=== PATIENT | female | born 1970 | race Caucasian/White ===

== ENCOUNTER 2016-08-30 21:11 | Emergency (ER) | payer OTHER ==
[~2016-08-30] VITALS: Ht 157.5 cm; Wt 53.0 kg
[~2016-08-30 21:11] MED LIST: ACET-1256 PO; AMB10 PO; ASCA500 PO; ATV/1 PO; AZAT50TA17 PO; BCPILLS PO; BIOT50006 PO; BUSP15TA70 PO; CALCTAB65 PO; CETI10TA84 PO; CHOL2000 PO; CLC100 PO; CYCL25CA2 PO; FEXO1TAB49 PO; FLNIN NAE; GLUCTAB7 PO; IMT100 PO; LABE100T16 PO; LINA1CAP2 PO; LRS10 PO; MELA5CAP PO; METH500T3 PO; MIRT15TA PO; MRLP17 PO; MULT-506 PO; OMEG-27 PO; ONDA4TAB46 PO; OXCA300T2 PO; OXCA300T4 PO; OXYC-164 PO; OXYM1TAB25 PO; PANT40TA PO; PRD/25 PO; RIZA10TA18 PO; SIMV5TAB2 PO; VERA240T20 PO; VITACAP37 PO; ZNTT/150 PO
[2016-08-30 21:19] VITALS: TEMP 36.6; Ht 157.5 cm; Wt 53.0 kg
[2016-08-30] MEDS ORDERED: PROPARACAINE HCL 0.5% OP SOLN 15 ML BTL OP STA (21:44)
[2016-08-30 22:40] VITALS: BP 156/62; PULSE 78; O2SAT 98
[2016-08-30] MEDS ORDERED: VALA1TAB2 PO (23:22)
--- NOTE | 2016-08-30 23:23 | EMERGENCY ROOM VISIT NOTE ---
History First contact with patient: 21:35 Chief Complaint: EYE ASSESSMENT Stated Complaint: SHINGLES OVER LT EYE, PAIN/RED BUMP, IRRITATED History of Present Illness The patient is a 45 year old female who presents to the Emergency Room with complaints of possible shingles. The patient states that 4 days ago, she noticed irritation of her left eye. She has a history of issues of allergies and states that she uses allergy drops, so she tried those. Over the next few days, she developed pain in the left side of her face and a "crawling" sensation. She states that it hurts to touch. She reports there is a red, painful spot on the left side of her scalp. She rates her discomfort a 7/10 and has been taking her own pain medication at home for the symptoms. She reports that he has been bloodshot and she has had worsening irritation in the eye. She has a history of chickenpox. She has no history of shingles. She does take immunosuppressants due to a renal transplant. She denies any fevers/ chills, facial drooping, numbness or weakness. Review of Systems A complete 10 point review of systems was reviewed with the patient with pertinent positives and negatives as per history of present illness. All else were negative. Social History Smoking Status: Current Every Day Smoker Current/Historical Medications Scheduled Ascorbic Acid (Vitamin C *), 500 MG PO BID Azathioprine (Imuran), 100 MG PO QAM Baclofen (Baclofen *), 20 MG PO TID Biotin (Biotin), 10,000 MCG PO QAM Control Pills ( Control Pills), 1 TAB PO QAM Buspirone Hcl (Buspar), 5 MG PO BID Calcium Carbonate-Vitamin D (Calcium 500 + D), 1 TAB PO BID Cetirizine (Zyrtec), 10 MG PO QAM Cholecalciferol (Vitamin D3), 1 CAP PO QAM Cyclosporine (Cyclosporine), 200 MG PO BID Docusate Sodium (Colace *), 100 MG PO BID Fexofenadine Hcl (Earnestine Allergy), 1 TAB PO QAM Fluticasone Propionate (Flonase Nasal Fleischmanns *), 2 SPRAYS JOEL HS Datvkmqcuww-Mqjbxiidhwv-Uxx C- (Glucosamine Chondroitin), 1 TAB PO BID Labetalol Hcl (Normodyne), 100 MG PO BID Linaclotide (Linzess), 1 TAB PO HS Melatonin (Melatonin), 15 MG PO HS Methylcellulose (Laxative) (Citrucel), 2-4 TABS PO HS Mirtazapine (Remeron), 30 MG PO HS Multivitamin (Multivitamin), 1 TAB PO QAM [place]-3 Fatty Acids (Fish Oil), 1 CAP PO HS Oxcarbazepine (Trileptal), 300 MG PO HS Oxcarbazepine (Trileptal), 1.5 TABS PO QAM Oxymorphone Hcl (Opana Er (Crush Resistant), 1 TAB PO Q8H Pantoprazole (Protonix), 40 MG PO BID Prednisone (Prednisone), 2.5 MG PO QAM Ranitidine (Zantac), 150 MG PO BID Simvastatin (Zocor), 5 MG PO QPM Valacyclovir Hcl (Valtrex), 1,000 MG PO TID Verapamil Sust Rel (Calan Sr Ext Rel), 240 MG PO BID Vitamin E (E-400), 1 CAP PO QAM Scheduled PRN Acetaminophen (Tylenol), 1,000 MG PO PRN PRN for Pain Lorazepam (Ativan), 1 MG PO TID PRN for Anxiety Ondansetron Hcl (Zofran), 4 MG PO tidprn PRN for Nausea Oxycodone Hcl (Oxycodone Hcl), 1 TAB PO TID PRN for Pain Polyethylene Glycol (Miralax *), 17 GM PO DAILY PRN for Constipation Rizatriptan Benzoate (Maxalt), 10 MG PO PRN PRN for Headache Sumatriptan Succinate (Imitrex), 100 MG PO UD PRN for Headache Zolpidem Tartrate (Ambien *), 10 MG PO HS PRN for Sleep Allergies Coded Allergies: Morphine (Verified Allergy, Intermediate, HIVES, HAS HAD CODEINE W/O PROBLEM, 02/10/16) HIVES, HAS HAD CODEINE W/O PROBLEM HAS ALSO TOLERATED TRAMADOL Hydralazine (Verified Allergy, Unknown, HIVES, 02/10/16) Uncoded Allergies: NITRATES (Adverse Reaction, Unknown, MIRAINES, 05/10/15) Physical Exam Vital Signs Date Time Temp Pulse Resp B/P (MAP) Pulse Ox O2 Delivery O2 Flow Rate FiO2 08/30/16 22:40 78 18 156/62 98 Room Air 08/30/16 21:19 36.6 91 18 151/84 99 Room Air Right Eye Acuity: 20/30 with glasses Left Eye Acuity: 20/30 with glasses Physical Exam VITALS: Vitals are noted on the nurse's note and reviewed by myself. Vital signs stable. GENERAL: This is a 45-year-old female, in no acute distress, nondiaphoretic, well-developed well-nourished. SKIN: There is a vesicular lesion to the left scalp in the hairline. It is painful to touch. There is mild surrounding erythema. There are no further rashes. EARS: External auditory canals clear, tympanic membranes pearly cruz without erythema or effusion bilaterally. EYES: Pupils equal round and reactive to light and accommodation. Mild left conjunctival injection. Slit lamp exam shows a few scattered spots of fluorescein uptake over the lower aspect of the iris. There are no overt dendritic lesions. MOUTH: Mucous membranes moist. Tonsils are not enlarged. Pharynx without erythema or exudate. NECK: Supple without nuchal rigidity. No lymphadenopathy. HEART: Regular rate and rhythm without murmurs gallops or rubs. LUNGS: Clear to auscultation bilaterally without wheezes, rales or rhonchi. NEURO: Patient was alert and oriented to person place and time. Medical Decision & Procedures Medications Administered Medications (Trade) Dose Ordered Sig/Jose G Route Start Time Stop Time Status Last Admin Dose Admin Valacyclovir HCl (Valtrex Tab) 1,000 mg NOW ONCE PO 08/30/16 23:00 08/30/16 23:01 DC 08/30/16 23:16 1,000 MG ED Course The patient was evaluated as above. Alcaine drops were placed in the eye and slit-lamp exam was performed as above. I discussed the case with Dr. Bauer of ophthalmology. Patient was medicated with 1 g Valtrex. Discharge instructions were reviewed with the patient. The patient verbalized understanding of my assessment and treatment plan and was discharged home in good condition. Medical Decision Differential diagnosis includes herpes zoster, contact dermatitis, zoster ophthalmicus, allergic reaction, among others. The patient was evaluated as above. Physical exam is consistent with early herpes zoster. Slit lamp exam revealed some scattered fluorescein uptake but there are no obvious dendritic lesions. I feel this is more likely due to the patient rubbing at her eyes. I consulted ophthalmology, Dr. Bauer, who did not recommend a steroid eyedrop at this time. The patient will call their office tomorrow to schedule follow-up. She will be placed on child tracks. She has her own pain medication at home. She will return here for any worsening symptoms. She verbalized understanding and was discharged home in good condition. The patient's case was reviewed with Dr. Servin, ED attending physician, who agreed with my assessment and treatment plan. Medication reconciliation: I attest that I have personally reviewed the patient 's current medication list. Blood pressure screening: Patient was found to have an elevated blood pressure and was referred to their primary care provider for recheck and further treatment. Impression Primary Impression: Herpes zoster Departure Information Dispostion Home / Self-Care Condition GOOD Prescriptions Valacyclovir Hcl (VALTREX) 1 Gm Tab 1000 MG PO TID for 7 Days, #21 TAB Prov: Camila Frausto .SEE 08/30/16 Referrals Stuart Ravi M.D. (PCP) Joey Bauer DHeide Patient Instructions My [facility] Additional Instructions Valtrex 3 times daily for 7 days. Continue pain control at home as needed. Follow-up with ophthalmology tomorrow. You should also follow-up with your primary care provider. Return to the emergency department with worsening symptoms, fevers or any other new/concerning symptoms. Problem Qualifiers Primary Impression: Herpes zoster Herpes zoster complications: without complications Qualified Codes: B02.9 - Zoster without complications
[2016-10-20] MEDS ORDERED: DIPH1TAB87 PO (18:44)
[2016-10-22] MEDS ORDERED: AMX500 PO (16:57)
[2017-02-16] MEDS ORDERED: SLWMEC PO (13:45)
[2017-02-16] MEDS ORDERED: [UNRECOGNIZED DRUG - OTHER] (13:45)
== END 2016-08-30 23:58 | disposition home or self-care (01) ==
LOC: C.EDB 21:12
DX: B02.9 Zoster without complications (principal); Z94.0 Kidney transplant status; F17.210 Nicotine dependence, cigarettes, uncomplicated; Z79.3 Long term (current) use of hormonal contraceptives; Z79.899 Other long term (current) drug therapy

== ENCOUNTER 2016-09-06 16:44 | Inpatient (IN) | payer OTHER ==
[~2016-09-06] VITALS: Ht 157.5 cm; Wt 50.2 kg
[~2016-09-06 16:44] MED LIST changes: +VALA1TAB2 PO
[2016-09-06] MEDS ORDERED: SODIUM CHLORIDE 0.9% 1000ML 1,000 ML IV STA ×3 (17:07→19:28)
[2016-09-06] MEDS ORDERED: PROMETHAZINE HCL INJ 25 MG in SODIUM CHLORIDE 0.9% 50ML 50 ML IV STA (17:15)
[2016-09-06 18:15] LABS: BASO % 0.3 %; BASO ABS # 0.01 K/uL (0-0.2); EOS % 0.3 %; HEMATOCRIT 22.8 % (37-47); IG% 0.6 %; LYMPH % 29.6 %; LYMPH ABS # 0.97 K/uL (1.2-3.4); MEAN CELL VOLUME 89.1 fL (80-100); MEAN CORPUSCULAR HEMOGLOBIN 32.8 pg (25-34); MEAN CORPUSCULAR HGB CONC 36.8 g/dl (32-36); MEAN PLATELET VOLUME 8.8 fL (7.4-10.4); NEUT % 62.2 %; PLATELET COUNT 173 K/uL (130-400); RED BLOOD COUNT 2.56 M/uL (4.2-5.4); WHITE BLOOD COUNT 3.28 K/uL (4.8-10.8)
[2016-09-06 18:24] LABS: INR 1.1 (0.9-1.1); PARTIAL THROMBOPLASTIN RATIO 0.8; PROTHROMBIN TIME (PATIENT) 11.6 SECONDS (9.0-12.0)
[2016-09-06 18:41] LABS: ALKALINE PHOSPHATASE 80 U/L (45-117); AST/SGOT 37 U/L (15-37); BLOOD UREA NITROGEN 44 mg/dl (7-18); BUN/CREATININE RATIO 23.4 (10-20); CARBON DIOXIDE 24 mmol/L (21-32); CHLORIDE 104 mmol/L (98-107); GLUCOSE 127 mg/dl (70-99); MAGNESIUM 2.5 mg/dl (1.8-2.4); POTASSIUM 3.9 mmol/L (3.5-5.1); PREG INTERNAL NEGATIVE QC NEG CLEAR BACKGROUND; PREG INTERNAL POSITIVE QC POS CONTROL LINE; SODIUM 136 mmol/L (136-145)
[2016-09-06 18:53] LABS: ALT/SGPT 32 U/L (12-78); THYROID STIMULATING HORMONE 0.677 uIu/ml (0.300-4.500)
[2016-09-06 18:54] LABS: COMPLETE YES; OVALOCYTES 1+
[2016-09-06 19:25] LABS: URINE APPEARANCE CLEAR (CLEAR); URINE BILIRUBIN NEG (NEG); URINE COLOR YELLOW; URINE EPITHELIAL CELL AUTO 0-5 /lpf (0-5); URINE NITRITE NEG (NEG); URINE PH 5.5 (4.5-7.5); URINE SPECIFIC GRAVITY 1.014 (1.000-1.030); UROBILINOGEN NEG (NEG)
[2016-09-06 19:28] LABS: MANUAL MICROSCOPIC REQUIRED? NO; REVIEW REQ? NO
[2016-09-06] MEDS ORDERED: FLUT0.15 NAE (19:30)
[2016-09-06] MEDS ORDERED: OFLO0.3S4 OPB (19:30)
[2016-09-06] MEDS ORDERED: MIRT45TA PO (19:30)
[2016-09-06] MEDS ORDERED: DOCU-94 PO (19:30)
[2016-09-06] MEDS ORDERED: OXCA600T2 PO (19:30)
[2016-09-06] MEDS ORDERED: ASCO500T16 PO (19:30)
[2016-09-06] MEDS ORDERED: CIME-56 PO (19:30)
[2016-09-06] MEDS ORDERED: POLY335019 PO (19:30)
[2016-09-06] MEDS ORDERED: ZOLP10TA PO (19:30)
[2016-09-06] MEDS ORDERED: OXY/15 PO (19:30)
[2016-09-06] MEDS ORDERED: LISI-725 PO (19:30)
[2016-09-06] MEDS ORDERED: DICL1GEL34 TOP (19:30)
[2016-09-06] MEDS ORDERED: OMEG5CAP PO (19:30)
[2016-09-06] MEDS ORDERED: LRS20 PO (19:30)
[2016-09-06] MEDS ORDERED: ONDANSETRON INJ 2 MG/ML 2 ML VIAL IV ONE (21:12)
[2016-09-06 21:38] LABS: BENZODIAZEPINE, URINE NEG (NEG); COCAINE,URINE NEG (NEG); PHENCYCLIDINE, URINE NEG (NEG)
--- NOTE | 2016-09-06 21:43 | DIAGNOSTIC IMAGING REPORT ---
HEAD CT NONCONTRAST CT DOSE: 537.48 mGy.cm HISTORY: Headache. TECHNIQUE: Multiaxial CT images of the head were performed without the use of intravenous contrast. Automated exposure control was utilized for this study. Comparison: Head CT 02/14/2014. Findings: The paranasal sinuses and mastoid air cells are clear. The calvarium and skull base are intact. The ventricles and sulci are within normal limits. There is no mass, hematoma, midline shift, or acute infarct. Impression: No acute intracranial abnormality. Electronically signed by: Hi Rios M.D. 09/06/2016 9:42 PM Dictated Date/Time: 09/06/2016 9:40 PM
--- NOTE | 2016-09-06 21:55 | DIAGNOSTIC IMAGING REPORT ---
ABDOMEN AND PELVIS CT WITHOUT CONTRAST CT DOSE: 259.53 mGy.cm HISTORY: Right-sided abdominal pain. TECHNIQUE: Multiaxial CT images of the abdomen and pelvis were performed without contrast. COMPARISON STUDY: MRCP 12/30/2015. FINDINGS: A 6 mm nodule within the right lower lobe. The heart is mildly enlarged. No fractures within the visualized osseous structures. Stable 3.6 cm cyst within the right kidney. Normal gallbladder. The spleen is enlarged measuring 16 cm in length. This has increased in size. Multiple left renal hypodense lesions remain unchanged. These likely represent cysts. The dominant lesion measures 4.3 cm. Suboptimal evaluation of the pancreas due to the noncontrast study. There are multiple calcifications seen throughout the pancreas consistent with chronic pancreatitis. No peripancreatic inflammatory change to suggest acute pancreatitis at this time. Multiple small cystic lesions within the pancreas are better appreciated on the prior MRCP. Small hiatus hernia. No definite retroperitoneal lymphadenopathy. Right lower quadrant renal transplant. There is fullness within the transplant collecting system without raphael hydronephrosis. There are few scattered hypodense lesions within the transplant kidney. These are not significantly changed and likely represent cysts. The bladder, uterus, bilateral adnexa are unremarkable. No significant pelvic free fluid. Suboptimal evaluation for bowel pathology due to the lack of intravenous and oral contrast. However, there is no definite bowel wall thickening or obstruction. Large amount well-formed stool seen throughout the colon. Normal appendix. IMPRESSION: 1. No bowel wall thickening or obstruction. 2. Severe constipation. 3. Mild fullness within the right lower quadrant transplant kidney without raphael hydronephrosis. This is not significantly changed. 4. Splenomegaly which has increased in size. 5. An indeterminate 6 mm nodule in the right lower lobe. Please refer to the chart below for recommended follow-up. 6. Pancreatic calcifications consistent with chronic pancreatitis. No CT evidence for acute pancreatitis at this time. Multiple small cystic lesion within the pancreas are better appreciated on the prior MRCP. Please refer to below summary of Fleischner criteria recommendations for follow-up of incidental CT nodules (Fabian Calixto, Guidelines for management of small pulmonary nodules detected on CT scans: A statement from the Fleischner Society, Radiology 237: [phone].) SOLID NODULES Solitary nodule size: <6 mm * Low risk patients: no follow-up needed * high risk patients: optional CT at 12 months Solitary nodule size: 6-8 mm * Low risk patients: follow-up at 6-12 months, then consider further follow-up at 18-24 months * high risk patients: initial follow-up CT at 6-12 months and then at 18-24 months if no change Solitary nodule size: >8 mm * either low or high risk patients - consider follow-up CT at 3 months, and/or CT-PET, and/or biopsy Multiple nodules size: <6 mm * Low risk patients: no routine follow-up * high risk patients: optional CT at 12 months Multiple nodules size: 6-8 mm * Low risk patients: follow-up at 3-6 months, then consider further follow-up at 18-24 months * high risk patients: follow-up at 3-6 months, then at 18-24 months if no change Multiple nodules size: >8 mm * Low risk patients: follow-up at 3-6 months, then consider further follow-up at 18-24 months * high risk patients: follow-up at 3-6 months, then at 18-24 months if no change Note: newly detected indeterminate nodule in persons 35 years of age or older. * Low risk patients: minimal or absent history of smoking and/or other known risk factors * high risk patients: history of smoking or of other known risk factors (e.g. first degree relative with lung cancer, or exposure to asbestos, radon, uranium) * if a nodule up to 8 mm is partly solid or is ground glass further follow-up is required after 24 months to exclude possible slow growing adenocarcinoma (CHANDAN) SUBSOLID NODULES Solitary pure ground-glass nodule * nodule size <6 mm - no CT follow-up required * nodule size >=6 mm - follow-up CT at 6-12 months, then every 2 years until 5 years Solitary part-solid nodule * nodule size <6 mm - no CT follow-up required * nodule size >=6 mm - follow-up CT at 3-6 months. If unchanged, and solid component remains <6 mm, then annual follow-up for 5 years Multiple subsolid nodules * nodule size <6 mm - follow-up CT at 3-6 months, consider further follow-up at 2 and 4 years if stable * nodule size >=6 mm - follow-up CT at 3-6 months, subsequent management based on the most suspicious nodule(s) Electronically signed by: Hi Rios M.D. 09/06/2016 9:54 PM Dictated Date/Time: 09/06/2016 9:42 PM
[2016-09-06] MEDS ORDERED: HYDROmorphone INJ 0.5 MG/0.5 ML SYR IV PRN (22:15)
[2016-09-06] MEDS ORDERED: MIRTAZAPINE TAB 15 MG TAB PO PRN (22:15)
[2016-09-06] MEDS: SODIUM CHLORIDE 0.9% 1000ML 1,000 ML IV SCH (22:23)
[2016-09-06 22:29] VITALS: BP 143/74; PULSE 75; TEMP 37.2; O2SAT 98
[2016-09-06 22:43] VITALS: BP 143/74; PULSE 75; TEMP 37.2; Ht 157.5 cm; Wt 50.2 kg
[2016-09-06] MEDS ORDERED: ACETAMINOPHEN 325 MG TAB PO PRN (22:45)
[2016-09-06] MEDS ORDERED: OXYCODONE/ACETAMINOPHEN 5-325 TAB PO PRN (22:45)
[2016-09-06 23:37] LABS: HEMATOCRIT 19.5 % (37-47)
[2016-09-06 23:43] LABS: FERRITIN 1142.7 ng/ml (8.0-388.0)
[2016-09-06] MEDS ORDERED: DOCUSATE SODIUM/SENNA 50/8.6MG TAB PO ONE (23:45)
[2016-09-06] MEDS ORDERED: LACTULOSE SYRUP 30 GM/45 ML UDP PO ONE (23:45)
[2016-09-07] VITALS (12 sets, daily range): BP systolic 110–140; BP diastolic 63–78; PULSE 65–74; TEMP 36.9–37.2; O2SAT 93–99
[2016-09-07] MEDS: LUBIPROSTONE 8 MCG CAP PO SCH ×3 (00:36→20:33)
[2016-09-07] MEDS: HYDROmorphone INJ 0.5 MG/0.5 ML SYR IV PRN ×2 (00:43→22:28)
--- NOTE | 2016-09-07 01:27 | History and Physical ---
History & Physical Date & Time of Service: Sep 07, 2016 at 01:27 Chief Complaint: nausea, emesis Primary Care Physician: Stuart Ravi M.D. History of Present Illness Source: patient, clinic records, hospital records Last week patient found to have shingles of the left eye face. Prescribed oral Acyclovir course. Patient noted nausea emesis after intake of medication. Left-sided headache achy different from migraine. Minimal upper abdominal discomfort. No bowel movement for a week No chest pain no shortness of breath. Seen at urgent care center a few days ago. Given IV fluids and prescribed antiemetics Follow-up with local meteorological aide yesterday. Patient told to stop Acyclovir. Topical antiviral prescribed for left eye. Patient consulted the emergency room for intractable symptoms and abnormal kidney function Outpatient creatinine was 2.1. 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) Multi-Drug Resistant Organisms History of MDRO: No Allergies Coded Allergies: Morphine (Verified Allergy, Intermediate, HIVES, HAS HAD CODEINE W/O PROBLEM, 09/06/16) HIVES, HAS HAD CODEINE W/O PROBLEM HAS ALSO TOLERATED TRAMADOL Hydralazine (Verified Allergy, Unknown, HIVES, 09/06/16) Uncoded Allergies: NITRATES (Adverse Reaction, Unknown, MIRAINES, 05/10/15) Home Medications Scheduled Ascorbic Acid (Ascorbic Acid), 500 MG PO BID Azathioprine (Imuran), 100 MG PO QAM Baclofen (Baclofen), 1 TAB PO TID Biotin (Biotin), 10,000 MCG PO QAM Control Pills ( Control Pills), 1 TAB PO QAM Buspirone Hcl (Buspar), 5 MG PO BID Calcium Carbonate-Vitamin D (Calcium 500 + D), 1 TAB PO BID Cetirizine (Zyrtec), 10 MG PO QAM Cholecalciferol (Vitamin D3), 1 CAP PO QAM Cimetidine (Tagamet), 1 TAB PO BID Cyclosporine (Cyclosporine), 200 MG PO BID Diclofenac Sodium (Topical) (Diclofenac Sodium), 1 DOSE TOP DAILY Docusate Sodium (Colace), 1 CAP PO BID Fexofenadine Hcl (Earnestine Allergy), 1 TAB PO QAM Fluticasone Propionate (Nasal) (Flonase Allergy Relief), 1 SPRAY JOEL HS Wqhjaaoitle-Jfunkuqutwa-Bmt C- (Glucosamine Chondroitin), 1 TAB PO BID Linaclotide (Linzess), 1 TAB PO HS Lisinopril (Zestril), 20 MG PO BID Melatonin (Melatonin), 15 MG PO HS Methylcellulose (Laxative) (Citrucel), 2-4 TABS PO HS Mirtazapine (Remeron), 1 TAB PO HS Multivitamin (Multivitamin), 1 TAB PO QAM Ofloxacin (Oph) (Ocuflox Oph Soln), 1 DROP OPB DAILY [place]-3 Fatty Acids (Fish Oil 1200 mg), 2 CAP PO HS Oxcarbazepine (Trileptal), 0.5 TAB PO BID Oxycodone Hcl (Oxycodone Hcl), 1 TAB PO QID Oxymorphone Hcl (Opana Er (Crush Resistant), 1 TAB PO TID Pantoprazole (Protonix), 40 MG PO BID Polyethylene Glycol 3350 (Miralax), 17 GM PO DAILY Prednisone (Prednisone), 2.5 MG PO QAM Simvastatin (Zocor), 5 MG PO QPM Verapamil Sust Rel (Calan Sr Ext Rel), 240 MG PO BID Vitamin E (E-400), 1 CAP PO QAM Zolpidem Tartrate (Ambien), 10 MG PO HS Scheduled PRN Acetaminophen (Tylenol), 1,000 MG PO PRN PRN for Pain Lorazepam (Ativan), 1 MG PO TID PRN for Anxiety Ondansetron Hcl (Zofran), 4 MG PO tidprn PRN for Nausea Rizatriptan Benzoate (Maxalt), 10 MG PO PRN PRN for Headache Sumatriptan Succinate (Imitrex), 100 MG PO UD PRN for Headache Review of Systems as per HPI, all other ROS negative Physical Exam Vital Signs Date Time Temp Pulse Resp B/P (MAP) Pulse Ox O2 Delivery O2 Flow Rate FiO2 09/07/16 00:50 37.1 68 20 133/70 98 09/06/16 22:43 37.2 75 16 143/74 Room Air 09/06/16 22:29 37.2 75 16 143/74 (97) 98 Room Air 09/06/16 21:53 68 18 126/76 98 Room Air 09/06/16 21:12 72 16 144/79 97 Room Air 09/06/16 19:09 72 16 143/77 97 Room Air 09/06/16 18:03 73 14 125/66 97 Room Air 09/06/16 17:48 96 Room Air 09/06/16 16:50 36.8 79 16 137/78 98 Room Air General Appearance: + pertinent finding (lethargic) Head: normocephalic Eyes: + pertinent finding (rash left left upper face) Neck: supple Respiratory/Chest: + pertinent finding (occasional wheeze) Cardiovascular: regular rate, rhythm Abdomen/GI: + distended Extremities/Musculoskelatal: non-tender Neurologic/Psych: + pertinent finding (lethargic) Skin: + pallor Diagnostics Laboratory Results Results Past 24 Hours Test 09/06/16 18:00 09/06/16 19:05 09/06/16 23:10 Range/Units White Blood Count 3.28 4.8-10.8 K/uL Red Blood Count 2.56 4.2-5.4 M/uL Hemoglobin 8.4 7.2 12.0-16.0 g/dL Hematocrit 22.8 19.5 37-47 % Mean Corpuscular Volume 89.1 80-100 fL Mean Corpuscular Hemoglobin 32.8 25-34 pg Mean Corpuscular Hemoglobin Concent 36.8 32-36 g/dl Platelet Count 173 130-400 K/uL Mean Platelet Volume 8.8 7.4-10.4 fL Neutrophils (%) (Auto) 62.2 % Lymphocytes (%) (Auto) 29.6 % Monocytes (%) (Auto) 7.0 % Eosinophils (%) (Auto) 0.3 % Basophils (%) (Auto) 0.3 % Neutrophils # (Auto) 2.04 1.4-6.5 K/uL Lymphocytes # (Auto) 0.97 1.2-3.4 K/uL Monocytes # (Auto) 0.23 0.11-0.59 K/uL Eosinophils # (Auto) 0.01 0-0.5 K/uL Basophils # (Auto) 0.01 0-0.2 K/uL RDW Standard Deviation 48.7 36.4-46.3 fL RDW Coefficient of Variation 15.3 11.5-14.5 % Immature Granulocyte % (Auto) 0.6 % Immature Granulocyte # (Auto) 0.02 0.00-0.02 K/uL Ovalocytes 1+ Prothrombin Time 11.6 9.0-12.0 SECONDS Prothromb Time International Ratio 1.1 0.9-1.1 Activated Partial Thromboplast Time 19.6 21.0-31.0 SECONDS Partial Thromboplastin Ratio 0.8 Sodium Level 136 136-145 mmol/L Potassium Level 3.9 3.5-5.1 mmol/L Chloride Level 104 98-107 mmol/L Carbon Dioxide Level 24 21-32 mmol/L Anion Gap 8.0 3-11 mmol/L Blood Urea Nitrogen 44 7-18 mg/dl Creatinine 1.90 0.60-1.20 mg/dl Est Creatinine Clear Calc Drug Dose 29.9 ml/min Estimated GFR () 36.5 Estimated GFR (Non- 31.5 BUN/Creatinine Ratio 23.4 10-20 Random Glucose 127 70-99 mg/dl Calcium Level 9.0 8.5-10.1 mg/dl Magnesium Level 2.5 1.8-2.4 mg/dl Total Bilirubin 1.0 0.2-1 mg/dl Direct Bilirubin 0.4 0-0.2 mg/dl Aspartate Amino Transf (AST/SGOT) 37 15-37 U/L Alanine Aminotransferase (ALT/SGPT) 32 12-78 U/L Alkaline Phosphatase 80 45-117 U/L Troponin I < 0.015 0-0.045 ng/ml Total Protein 7.5 6.4-8.2 gm/dl Albumin 4.1 3.4-5.0 gm/dl Lipase 116 73-393 U/L Thyroid Stimulating Hormone (TSH) 0.677 0.300-4.500 uIu/ml Human Chorionic Gonadotropin, Qual NEG NEG Urine Color YELLOW Urine Appearance CLEAR CLEAR Urine pH 5.5 4.5-7.5 Urine Specific [place] 1.014 1.000-1.030 Urine Protein TRACE NEG Urine Glucose (UA) NEG NEG Urine Ketones NEG NEG Urine Occult Blood NEG NEG Urine Nitrite NEG NEG Urine Bilirubin NEG NEG Urine Urobilinogen NEG NEG Urine Leukocyte Esterase NEG NEG Urine WBC (Auto) 0 0-5 /hpf Urine RBC (Auto) 0-4 0-4 /hpf Urine Hyaline Casts (Auto) 0 0-5 /lpf Urine Epithelial Cells (Auto) 0-5 0-5 /lpf Urine Bacteria (Auto) NEG NEG Urine Opiates Screen POS NEG Urine Methadone, Qualitative NEG NEG Urine Barbiturates NEG NEG Urine Phencyclidine (PCP) Level NEG NEG Ur Amphetamine/Methamphetamine NEG NEG MDMA (Ecstasy) Screen POS NEG Urine Benzodiazepines Screen NEG NEG Urine Cocaine Metabolite NEG NEG Urine Marijuana (THC) NEG NEG Absolute Reticulocyte Count 0.05 0.02-0.10 10^6/uL Percent Reticulocyte Count 2.2 0.5-2.0 % Iron Level 78 35-150 mcg/dl Total Iron Binding Capacity 165 250-450 mcg/dl Transferrin 132 200-360 mg/dl Transferrin % Saturation 42 15-50 % Ferritin 1142.7 8.0-388.0 ng/ml Vitamin B12 Level 1234 211-911 pg/mL Folate 22.36 >5.38 ng/mL Microbiology Results 09/06/16 Urine Culture, Received Pending Diagnostic Radiology CT head no acute pathology CT abdomen and pelvis chronic pancreatic calcifications splenomegaly, severe constipation, pulmonary nodule right Impression Assessment and Plan AP ARF likely prerenal 2 to nausea/emesis symptoms Multifactorial : ? 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 Baron ) Bowel regimen, continue Linzess Judicious narcotic use Hold [id number]-[id number] narcotics, neuro-psychotropics for for sedation confusion ( May need dose adjustment for renal function) (px currently agreeable to holding her Opana inpx- refusing available Oxycontin substitute) Anemia workup, transfuse pRBC if hemoglobin less than 7 and/or for symptomatic anemia Continue topical Rx prescribed by meteorological aide for shingles Nicotine patch outpx ffup surveillance CT chest study for SPN DVT prophylaxis SCDs RE anemia Full code Advanced Directives Existing Living Will: No Existing Power of Construction Stonemason: No VTE Prophylaxis VTE Risk Assessment Done? Y/N: Yes Risk Level: High
[2016-09-07] MEDS ORDERED: NON-FORMULARY MEDICATION SCH (01:45)
[2016-09-07] MEDS: PROMETHAZINE HCL INJ 12.5 MG in SODIUM CHLORIDE 0.9% 50ML 50 ML IV PRN ×3 (03:00→20:10)
[2016-09-07 08:00] LABS: HEMATOCRIT 21.6 % (37-47); MEAN CELL VOLUME 89.6 fL (80-100); MEAN CORPUSCULAR HGB CONC 35.6 g/dl (32-36); MEAN PLATELET VOLUME 8.5 fL (7.4-10.4); PLATELET COUNT 151 K/uL (130-400); RED BLOOD COUNT 2.41 M/uL (4.2-5.4); WHITE BLOOD COUNT 2.97 K/uL (4.8-10.8)
[2016-09-07 08:12] LABS: BASO % 0.3 %; BASO ABS # 0.01 K/uL (0-0.2); COMPLETE YES; EOS % 0.7 %; IG% 0.3 %; LYMPH % 37.7 %; LYMPH ABS # 1.12 K/uL (1.2-3.4); MONO % 9.4 %; NEUT % 51.6 %
[2016-09-07 08:13] LABS: BUN/CREATININE RATIO 22.1 (10-20); CALCIUM 8.2 mg/dl (8.5-10.1); CREATININE 1.2 mg/dl (0.60-1.20)
[2016-09-07] MEDS ORDERED: LACTULOSE SYRUP 20 GM/30 ML UDC PO ONE (08:15)
[2016-09-07] MEDS: SODIUM CHLORIDE 0.9% 1000ML 1,000 ML IV SCH ×2 (08:24→17:08)
[2016-09-07] MEDS: ACETAMINOPHEN IV 650 MG in EMPTY BAG 0 ML IV PRN ×2 (08:26→16:22)
[2016-09-07] MEDS ORDERED: BusPIRone 15 MG TAB PO SCH (09:00)
[2016-09-07] MEDS: OXCARBAZEPINE 150 MG TAB PO SCH ×2 (10:11→20:30)
[2016-09-07] MEDS: FEXOFENADINE HCL 180 MG TAB PO SCH (10:11)
[2016-09-07] MEDS: CYCLOSPORINE 100 MG PO SCH ×2 (10:12→20:36)
[2016-09-07] MEDS: AZATHIOPRINE 50 MG TAB PO SCH (10:12)
[2016-09-07] MEDS: VERAPAMIL HCL 240 MG TABCR PO SCH ×2 (10:12→20:34)
[2016-09-07] MEDS: BACLOFEN 10 MG TAB PO SCH ×3 (10:13→20:33)
[2016-09-07] MEDS: MULTIVITAMIN TAB PO SCH (10:14)
[2016-09-07] MEDS: DOCUSATE SODIUM/SENNA 50/8.6MG TAB PO SCH ×2 (10:15→20:30)
[2016-09-07] MEDS: NICOTINE 7 MG/24 HR TDSY TD SCH (10:16)
[2016-09-07] MEDS: FAMOTIDINE 20 MG TAB PO SCH ×2 (10:16→20:31)
[2016-09-07] MEDS: CETIRIZINE HCL 10 MG TAB PO SCH (10:17)
[2016-09-07] MEDS: PANTOprazole SOD 40 MG TAB PO SCH ×2 (10:18→20:31)
[2016-09-07] MEDS: POLYETHYLENE (MIRALAX) 17 GM PACK PO SCH (10:26)
--- NOTE | 2016-09-07 12:26 | Nephrology Consultation ---
Nephrology Consultation Date & Providers Date of Consultation: Sep 07, 2016. Primary Care Provider: Stuart Ravi M.D. Referring Provider: Reason for Consultation Evaluation management for acute kidney injury with history of renal transplant. 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 Nephrologic consult was requested to manage acute kidney injury with history of renal transplant. 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 Since she started on Valtrex she was having significant GI symptom including nausea, vomiting, abdominal discomforted and she was not able to keep anything down. She was getting volume depleted and was feeling dizzy and lightheaded. She was having visual impairment with herpes infection. [place]field to her recruitment specialist care 2 days ago when she was kicked and given IV fluid and she fell better. Her creatinine was up currently 2.0. Yesterday she saw differential specialist and Valtrex was discontinued and started on topical eye drops. Since she stopped Valtrex her non vomiting resolved but she is still nauseous but improving. She has been getting IV hydration and overall feels better. p.o. intake also has been improving. On admission her creatinine was 1.9 which improved to 1.2 this morning which seems to be her baseline. All other electrolyte acceptable. Blood pressure well control. She had end-stage renal disease continue to MPGN requiring renal transplant. Her initial transplant was in 1984 with donor renal transplant which eventually failed and patient had a second transplant in 1990 from heart mother. Since then she has been enjoying excellent graft function. Her baseline creatinine somewhere around 1.1-1.3. She is on cyclosporine 200 milligram twice a day, Imuran 100 milligram daily and prednisone 2.5 milligram daily. She had an episode of autoimmune hemolytic anemia in 2013 when she was admitted with hemoglobin of 4.2. Eventually she was started on rituximab and receive at 3 or 4 doses then stopped. Episode of hemolytic anemia required again requiring weekly rituximab which she stopped in March 2015. Her hemoglobin has been staying around 12 however recently her hemoglobin has been again dropping yesterday her hemoglobin was 7.2, she received 1 unit of PRBC and hemoglobin improved to 7.8. B12 and folate level was normal. She had colonoscopy in 2016 which was normal, EGD showed gastritis. Currently she is on Protonix. She had gastric bypass surgery in 2014 and since then she almost lost 80-90 pounds. Allergies Coded Allergies: Morphine (Verified Allergy, Intermediate, HIVES, HAS HAD CODEINE W/O PROBLEM, 09/06/16) HIVES, HAS HAD CODEINE W/O PROBLEM HAS ALSO TOLERATED TRAMADOL Hydralazine (Verified Allergy, Unknown, HIVES, 09/06/16) Uncoded Allergies: NITRATES (Adverse Reaction, Unknown, MIRAINES, 05/10/15) Inpatient Medications Current Inpatient Medications Medications (Trade) Dose Ordered Sig/Jose G Route Start Time Stop Time Status Last Admin Dose Admin Sodium Chloride 1,000 ml @ 100 mls/hr Q10H IV 09/06/16 21:15 10/06/16 21:14 09/07/16 08:24 100 MLS/HR Ondansetron HCl (Zofran Inj) 4 mg Q6H PRN IV 09/06/16 21:15 10/06/16 21:14 Azathioprine (Imuran Tab) 100 mg QAM PO 09/07/16 09:00 10/07/16 08:59 Baclofen (Lioresal Tab) 2.5 mg TID PO 09/07/16 08:00 10/07/16 07:59 Buspirone HCl (BusPAR TAB) 5 mg BID PO 09/07/16 09:00 10/07/16 08:59 Cetirizine HCl (zyrTEC TAB) 10 mg QAM PO 09/07/16 09:00 10/07/16 08:59 Famotidine (Pepcid Tab) 20 mg BID PO 09/07/16 08:00 10/07/16 07:59 Cyclosporine (Sandimmune Cap) 200 mg BID PO 09/07/16 09:00 10/07/16 08:59 Fexofenadine HCl (Earnestine Tab) 180 mg QAM PO 09/07/16 09:00 10/07/16 08:59 Fluticasone Propionate (Flonase Nasal [place]) 1 sprays HS JOEL 09/07/16 22:00 10/07/16 21:59 Lorazepam (Ativan Tab) 1 mg TID PRN PO 09/06/16 22:15 10/06/16 22:14 Multivitamins (Multivitamin Tab) 1 tab QAM PO 09/07/16 09:00 10/07/16 08:59 Verapamil HCl (Calan-Sr Tab) 240 mg BID PO 09/07/16 09:00 10/07/16 08:59 Miscellaneous Information (Order Awaiting Action) 1 ea QS N/A 09/07/16 00:00 10/07/16 00:00 Polyethylene (Miralax Powder Packet) 17 gm QAM PO 09/07/16 08:00 10/07/16 07:59 Mirtazapine (Remeron Tab) 30 mg HS PRN PO 09/06/16 22:15 10/06/16 22:14 Oxcarbazepine (Trileptal Tab) 300 mg BID PO 09/07/16 09:00 10/07/16 08:59 Acetaminophen 650 mg/Empty Bag 65 ml @ 260 mls/hr Q6H PRN IV 09/06/16 22:15 10/06/16 22:14 09/07/16 08:26 260 MLS/HR Senna/Docusate Sodium (Senokot S Tab) 2 tab BID PO 09/07/16 09:00 10/07/16 08:59 Acetaminophen (Tylenol Tab) 650 mg Q4H PRN PO 09/06/16 22:45 10/06/16 22:44 Hydromorphone HCl (Dilaudid Inj) 0.5 mg Q12H PRN IV 09/06/16 23:00 09/20/16 22:14 09/07/16 00:43 0.5 MG Promethazine HCl 12.5 mg/Sodium Chloride 50.5 ml @ 204 mls/hr Q6H PRN IV 09/07/16 00:00 10/07/16 00:00 09/07/16 03:00 204 MLS/HR Lubiprostone (Amitiza) 24 mcg BID PO 09/07/16 00:30 10/07/16 00:29 09/07/16 00:36 24 MCG Nicotine (Nicoderm Cq 7 Mg Patch) 1 patch QAM TD 09/07/16 08:00 10/07/16 07:59 Miscellaneous (Remove Nicoderm Patch) 1 ea HS N/A 09/07/16 07:59 10/07/16 07:58 Prednisone (PredniSONE TAB) 2.5 mg DAILY PO 09/07/16 08:00 10/07/16 07:59 Pantoprazole Sodium (Protonix Tab) 40 mg BID PO 09/07/16 08:00 10/07/16 07:59 Simvastatin (Zocor Tab) 5 mg QPM PO 09/07/16 21:00 10/07/16 20:59 Miscellaneous Information (Order Awaiting Action) 1 ea QS N/A 09/07/16 08:00 10/07/16 07:59 Oxycodone/ Acetaminophen (Percocet 5-325mg Tab) pain not relieved by tyle... Q6H PRN PO 09/07/16 08:00 09/20/16 22:44 Family History Diabetes mellitus Heart disease Hypertension Kidney disease Kidney stones Lung disease Social History Smoking Status: Current Every Day Smoker Review of Systems A complete review of systems was performed. Pertinent positives are noted above. All other systems are negative. Physical Exam Date Time Temp Pulse Resp B/P (MAP) Pulse Ox O2 Delivery O2 Flow Rate FiO2 09/07/16 07:59 36.9 69 18 140/73 (95) 93 Room Air 09/07/16 02:35 37.1 68 20 110/63 98 09/07/16 01:45 36.9 68 20 120/70 (87) 97 Room Air 09/07/16 01:35 36.9 68 20 120/70 97 09/07/16 01:05 36.9 66 20 136/78 99 09/07/16 00:50 37.1 68 20 133/70 98 09/07/16 00:00 99 Room Air 09/06/16 22:43 37.2 75 16 143/74 Room Air 09/06/16 22:29 37.2 75 16 143/74 (97) 98 Room Air 09/06/16 21:53 68 18 126/76 98 Room Air 09/06/16 21:12 72 16 144/79 97 Room Air 09/06/16 19:09 72 16 143/77 97 Room Air 09/06/16 18:03 73 14 125/66 97 Room Air 09/06/16 17:48 96 Room Air 09/06/16 16:50 36.8 79 16 137/78 98 Room Air GENERAL: Young female, AAA x 3, pleasant, healthy-appearing, not in any distress. HEENT: Atraumatic, normocephalic. NECK: Supple, no JVD, no carotid bruit appreciated. ENT: No sinus tenderness MOUTH and THROAT: Moist oral mucosa, no oral ulcer or pharyngeal erythema RESPIRATORY: Normal breathing efforts, no accessory muscle use, clear to auscultation bilaterally, no wheezes or rales. CARDIOVASCULAR: S1, S2 normal, rate rhythm regular. ABDOMEN: Soft, nontender, positive bowel sound. MUSCULOSKELETAL: No CVA tenderness. No joint swelling, erythema or tenderness. Normal range of motion. SKIN: No skin rash EXTREMITY: No lower extremity edema NEURO: No gross focal neurological deficit, speech fluent. PSYCHIATRY: Normal mood and judgment Laboratory Results Last 24 Hours Test 09/06/16 18:00 09/06/16 19:05 09/06/16 23:10 09/07/16 06:55 White Blood Count 3.28 K/uL 2.97 K/uL Red Blood Count 2.56 M/uL 2.41 M/uL Hemoglobin 8.4 g/dL 7.2 g/dL 7.7 g/dL Hematocrit 22.8 % 19.5 % 21.6 % Mean Corpuscular Volume 89.1 fL 89.6 fL Mean Corpuscular Hemoglobin 32.8 pg 32.0 pg Mean Corpuscular Hemoglobin Concent 36.8 g/dl 35.6 g/dl Platelet Count 173 K/uL 151 K/uL Mean Platelet Volume 8.8 fL 8.5 fL Neutrophils (%) (Auto) 62.2 % 51.6 % Lymphocytes (%) (Auto) 29.6 % 37.7 % Monocytes (%) (Auto) 7.0 % 9.4 % Eosinophils (%) (Auto) 0.3 % 0.7 % Basophils (%) (Auto) 0.3 % 0.3 % Neutrophils # (Auto) 2.04 K/uL 1.53 K/uL Lymphocytes # (Auto) 0.97 K/uL 1.12 K/uL Monocytes # (Auto) 0.23 K/uL 0.28 K/uL Eosinophils # (Auto) 0.01 K/uL 0.02 K/uL Basophils # (Auto) 0.01 K/uL 0.01 K/uL RDW Standard Deviation 48.7 fL 47.6 fL RDW Coefficient of Variation 15.3 % 14.6 % Immature Granulocyte % (Auto) 0.6 % 0.3 % Immature Granulocyte # (Auto) 0.02 K/uL 0.01 K/uL Ovalocytes 1+ Prothrombin Time 11.6 SECONDS Prothromb Time International Ratio 1.1 Activated Partial Thromboplast Time 19.6 SECONDS Partial Thromboplastin Ratio 0.8 Sodium Level 136 mmol/L 140 mmol/L Potassium Level 3.9 mmol/L 4.0 mmol/L Chloride Level 104 mmol/L 109 mmol/L Carbon Dioxide Level 24 mmol/L 23 mmol/L Anion Gap 8.0 mmol/L 8.0 mmol/L Blood Urea Nitrogen 44 mg/dl 27 mg/dl Creatinine 1.90 mg/dl 1.20 mg/dl Est Creatinine Clear Calc Drug Dose 29.9 ml/min 47.3 ml/min Estimated GFR () 36.5 63.7 Estimated GFR (Non- 31.5 54.9 BUN/Creatinine Ratio 23.4 22.1 Random Glucose 127 mg/dl 78 mg/dl Calcium Level 9.0 mg/dl 8.2 mg/dl Magnesium Level 2.5 mg/dl Total Bilirubin 1.0 mg/dl Direct Bilirubin 0.4 mg/dl Aspartate Amino Transf (AST/SGOT) 37 U/L Alanine Aminotransferase (ALT/SGPT) 32 U/L Alkaline Phosphatase 80 U/L Troponin I < 0.015 ng/ml Total Protein 7.5 gm/dl Albumin 4.1 gm/dl Lipase 116 U/L Thyroid Stimulating Hormone (TSH) 0.677 uIu/ml Human Chorionic Gonadotropin, Qual NEG Urine Color YELLOW Urine Appearance CLEAR Urine pH 5.5 Urine Specific [place] 1.014 Urine Protein TRACE Urine Glucose (UA) NEG Urine Ketones NEG Urine Occult Blood NEG Urine Nitrite NEG Urine Bilirubin NEG Urine Urobilinogen NEG Urine Leukocyte Esterase NEG Urine WBC (Auto) 0 /hpf Urine RBC (Auto) 0-4 /hpf Urine Hyaline Casts (Auto) 0 /lpf Urine Epithelial Cells (Auto) 0-5 /lpf Urine Bacteria (Auto) NEG Urine Opiates Screen POS Urine Methadone, Qualitative NEG Urine Barbiturates NEG Urine Phencyclidine (PCP) Level NEG Ur Amphetamine/Methamphetamine NEG MDMA (Ecstasy) Screen POS Urine Benzodiazepines Screen NEG Urine Cocaine Metabolite NEG Urine Marijuana (THC) NEG Absolute Reticulocyte Count 0.05 10^6/uL 0.04 10^6/uL Percent Reticulocyte Count 2.2 % 1.8 % Iron Level 78 mcg/dl Total Iron Binding Capacity 165 mcg/dl Transferrin 132 mg/dl Transferrin % Saturation 42 % Ferritin 1142.7 ng/ml Vitamin B12 Level 1234 pg/mL Folate 22.36 ng/mL Red Blood Cell Morphology Unremarkable Lactate Dehydrogenase 275 U/L Impression (1) ARF (acute renal failure) (2) Anemia (3) Herpes zoster (4) GERD (gastroesophageal reflux disease) Marci Is a 45-year-old female status 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 She developed acute kidney injury in the setting of them nausea, vomiting, volume depletion after started on Valtrex for left eye herpes simplex infection. Admitted yesterday and started on IV hydration, clinically significantly improved. Still has nausea but vomiting resolved. Creatinine on admission was 1.9 which improved to 1.2 this morning which seems to be her baseline. She has been tolerating her immunosuppressant medication through her acute illness over last few days. 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 On admission hemoglobin was 7.2, received 1 unit of blood transfusion and hemoglobin improved to 7.9. EGD and colonoscopy in 2016 was otherwise unremarkable except gastritis, currently on Protonix. She denies any episode of GI bleeding recently. Currently acute kidney injury seems to have resolved creatinine 1.2, at baseline , other electrolyte acceptable, blood pressure acceptable. Recommendations --Patient still seems slightly volume depleted, agree with continuing with IV fluid until p.o. intake is adequate --renal function now at baseline, will continue to monitor renal function with daily renal panel while inpatient --Continue on cyclosporin 200 twice a day, Imuran 100 daily and prednisone 2.5 daily --Haptoglobin is pending --suggest Hematology consult for further evaluation for anemia and possible recurrence of AHA Thank you for allowing me to participate in your patient's care. It was a pleasure to see Marci This chart was completed utilizing [employer] Speech and voice recognition software. Grammatical errors, random word insertions, pronoun errors and incomplete sentences are occasional consequences of this system. Any questions or concerns about the content, text or information contained within the body of this dictation should be addressed directly to the physician for clarification.
[2016-09-07] MEDS: DICLOFENAC SOD 1% GEL 100 GM TUBE EXT SCH ×2 (14:32→20:40)
[2016-09-07] MEDS: ONDANSETRON INJ 2 MG/ML 2 ML VIAL IV PRN (14:33)
[2016-09-07] MEDS: OXYCODONE/ACETAMINOPHEN 5-325 TAB PO PRN (14:43)
--- NOTE | 2016-09-07 15:17 | Progress Note ---
Internal Med Progress Note Date of Service: Sep 07, 2016. Provider Documentation: SUBJECTIVE: The patient was seen and examined Symptoms started following the use of Valtrex prescribed by the Fund Controller Still feels very dizzy with any movement out of bed Feels a little better overall OBJECTIVE: Vital Signs-as noted below Exam: General-no distress atrest Eyes-normal ENT-normal Neck-supple Lungs-Clear to ausucltate bilaterally Heart-Regular,no murmur Abdomen-Benign.Enlarged spleen Extremities-No edema Neuro-AAOx3 NO focal neuro deficit Lab data as noted below. ASSESSMENT & PLAN: ARF likely prerenal 2 to nausea/emesis symptoms Multifactorial : Acyclovir intolerance, history shingles status post Rx, Narcotic induced constipation History MPGN status post renal transplant on chronic immunosuppression H/O Gastroparesis as per px Hold ACEI until renal function normalizes Received IVF and advised increased oral intake Nephrology evaluation-appreciate input Chronic pain on narcotics (plan for outpatient wean as per outpx PCP notes) Judicious narcotic use Hold [id number] narcotics, neuro-psychotropics for for sedation confusion ( May need dose adjustment for renal function) (px currently agreeable to holding her Opana inpx- refusing available Oxycontin substitute) Anemia workup, transfuse pRBC if hemoglobin less than 7 and/or for symptomatic anemia Anemia rule out occult bleed, progression of anemia over the last few months hx hemolytic anemia as per records Received 1 unit PRBC and will give another unit Herpes Zoster Ophthalmicus Was on Valtrex-on hold due to current symptoms Continue topical Rx prescribed by jewel bearing facer for shingles hx DVT sp tx ongoing tobacco abuse SPN on CT Tobacco abuse Nicotine patch outpx ffup surveillance CT chest study for SPN DVT prophylaxis SCDs RE anemia Full code Vital Signs: Date Time Temp Pulse Resp B/P (MAP) Pulse Ox O2 Delivery O2 Flow Rate FiO2 09/07/16 14:15 37.1 69 16 133/75 09/07/16 13:45 36.9 74 16 125/71 09/07/16 13:30 36.9 69 16 124/68 09/07/16 13:15 36.9 73 16 122/69 09/07/16 08:00 Room Air 09/07/16 07:59 36.9 69 18 140/73 (95) 93 Room Air 09/07/16 02:35 37.1 68 20 110/63 98 09/07/16 01:45 36.9 68 20 120/70 (87) 97 Room Air 09/07/16 01:35 36.9 68 20 120/70 97 09/07/16 01:05 36.9 66 20 136/78 99 09/07/16 00:50 37.1 68 20 133/70 98 09/07/16 00:00 99 Room Air 09/06/16 22:43 37.2 75 16 143/74 Room Air 09/06/16 22:29 37.2 75 16 143/74 (97) 98 Room Air 09/06/16 21:53 68 18 126/76 98 Room Air 09/06/16 21:12 72 16 144/79 97 Room Air 09/06/16 19:09 72 16 143/77 97 Room Air 09/06/16 18:03 73 14 125/66 97 Room Air 09/06/16 17:48 96 Room Air 09/06/16 16:50 36.8 79 16 137/78 98 Room Air Lab Results: Results Past 24 Hours Test 09/06/16 18:00 09/06/16 19:05 09/06/16 23:10 09/07/16 06:55 Range/Units White Blood Count 3.28 2.97 4.8-10.8 K/uL Red Blood Count 2.56 2.41 4.2-5.4 M/uL Hemoglobin 8.4 7.2 7.7 12.0-16.0 g/dL Hematocrit 22.8 19.5 21.6 37-47 % Mean Corpuscular Volume 89.1 89.6 80-100 fL Mean Corpuscular Hemoglobin 32.8 32.0 25-34 pg Mean Corpuscular Hemoglobin Concent 36.8 35.6 32-36 g/dl Platelet Count 173 151 130-400 K/uL Mean Platelet Volume 8.8 8.5 7.4-10.4 fL Neutrophils (%) (Auto) 62.2 51.6 % Lymphocytes (%) (Auto) 29.6 37.7 % Monocytes (%) (Auto) 7.0 9.4 % Eosinophils (%) (Auto) 0.3 0.7 % Basophils (%) (Auto) 0.3 0.3 % Neutrophils # (Auto) 2.04 1.53 1.4-6.5 K/uL Lymphocytes # (Auto) 0.97 1.12 1.2-3.4 K/uL Monocytes # (Auto) 0.23 0.28 0.11-0.59 K/uL Eosinophils # (Auto) 0.01 0.02 0-0.5 K/uL Basophils # (Auto) 0.01 0.01 0-0.2 K/uL RDW Standard Deviation 48.7 47.6 36.4-46.3 fL RDW Coefficient of Variation 15.3 14.6 11.5-14.5 % Immature Granulocyte % (Auto) 0.6 0.3 % Immature Granulocyte # (Auto) 0.02 0.01 0.00-0.02 K/uL Ovalocytes 1+ Prothrombin Time 11.6 9.0-12.0 SECONDS Prothromb Time International Ratio 1.1 0.9-1.1 Activated Partial Thromboplast Time 19.6 21.0-31.0 SECONDS Partial Thromboplastin Ratio 0.8 Sodium Level 136 140 136-145 mmol/L Potassium Level 3.9 4.0 3.5-5.1 mmol/L Chloride Level 104 109 98-107 mmol/L Carbon Dioxide Level 24 23 21-32 mmol/L Anion Gap 8.0 8.0 3-11 mmol/L Blood Urea Nitrogen 44 27 7-18 mg/dl Creatinine 1.90 1.20 0.60-1.20 mg/dl Est Creatinine Clear Calc Drug Dose 29.9 47.3 ml/min Estimated GFR () 36.5 63.7 Estimated GFR (Non- 31.5 54.9 BUN/Creatinine Ratio 23.4 22.1 10-20 Random Glucose 127 78 70-99 mg/dl Calcium Level 9.0 8.2 8.5-10.1 mg/dl Magnesium Level 2.5 1.8-2.4 mg/dl Total Bilirubin 1.0 0.2-1 mg/dl Direct Bilirubin 0.4 0-0.2 mg/dl Aspartate Amino Transf (AST/SGOT) 37 15-37 U/L Alanine Aminotransferase (ALT/SGPT) 32 12-78 U/L Alkaline Phosphatase 80 45-117 U/L Troponin I < 0.015 0-0.045 ng/ml Total Protein 7.5 6.4-8.2 gm/dl Albumin 4.1 3.4-5.0 gm/dl Lipase 116 73-393 U/L Thyroid Stimulating Hormone (TSH) 0.677 0.300-4.500 uIu/ml Human Chorionic Gonadotropin, Qual NEG NEG Urine Color YELLOW Urine Appearance CLEAR CLEAR Urine pH 5.5 4.5-7.5 Urine Specific [place] 1.014 1.000-1.030 Urine Protein TRACE NEG Urine Glucose (UA) NEG NEG Urine Ketones NEG NEG Urine Occult Blood NEG NEG Urine Nitrite NEG NEG Urine Bilirubin NEG NEG Urine Urobilinogen NEG NEG Urine Leukocyte Esterase NEG NEG Urine WBC (Auto) 0 0-5 /hpf Urine RBC (Auto) 0-4 0-4 /hpf Urine Hyaline Casts (Auto) 0 0-5 /lpf Urine Epithelial Cells (Auto) 0-5 0-5 /lpf Urine Bacteria (Auto) NEG NEG Urine Opiates Screen POS NEG Urine Methadone, Qualitative NEG NEG Urine Barbiturates NEG NEG Urine Phencyclidine (PCP) Level NEG NEG Ur Amphetamine/Methamphetamine NEG NEG MDMA (Ecstasy) Screen POS NEG Urine Benzodiazepines Screen NEG NEG Urine Cocaine Metabolite NEG NEG Urine Marijuana (THC) NEG NEG Absolute Reticulocyte Count 0.05 0.04 0.02-0.10 10^6/uL Percent Reticulocyte Count 2.2 1.8 0.5-2.0 % Iron Level 78 35-150 mcg/dl Total Iron Binding Capacity 165 250-450 mcg/dl Transferrin 132 200-360 mg/dl Transferrin % Saturation 42 15-50 % Ferritin 1142.7 8.0-388.0 ng/ml Vitamin B12 Level 1234 211-911 pg/mL Folate 22.36 >5.38 ng/mL Red Blood Cell Morphology Unremarkable Lactate Dehydrogenase 275 84-246 U/L Microbiology Results 09/06/16 Urine Culture - Preliminary, Resulted NO GROWTH - LESS THAN 1,000 COLONIES/...
--- NOTE | 2016-09-07 18:11 | EMERGENCY ROOM VISIT NOTE ---
History Report prepared by Wai: Mercedes Govea Under the Supervision of: Dr. Michele Wu M.D. First contact with patient: 17:05 Chief Complaint: DEHYDRATION Stated Complaint: NAUSEA, VOMITING, CAN'T WALK STRAIGHT History of Present Illness The patient is a 45 year old female who presents to the Emergency Room with complaints of persistent dehydration that started several days ago. The patient was diagnosed with herpes zoster in her left eye 1 week ago in the ED. She states that the shingles is in her eye and the surrounding orbit. She was prescribed Valtrex, but she states that her eye is still the same as it was 1 week ago. She states that she still has blurry vision and some pain in her left eye. The patient states that she has been nauseous and vomiting since she started taking the Valtrex. The patient was seen at Urgent Care last night and received 2 L Sodium Chloride. She states that she felt better after the fluids. The patient was also prescribed Phenergan last night at the Urgent Care because Zofran was not relieving her nausea. She states that she has not taken any of the Phenergan yet. The patient woke up this morning and took her medications around 0500. She states that since this morning she has been experiencing nausea and vomiting after drinking any fluids. The patient is also experiencing dizziness which she describes as lightheadedness. She states that she is having difficulty ambulating secondary to the lightheadedness. She adds that she is experiencing a left-sided headache, but states that she has chronic migraines. Pt denies LOC, fevers, chills, double vision, diaphoresis, chest pain, breathing difficulties, abdominal pain, back pain, melena, hematochezia, diarrhea, new urinary symptoms, numbness, weakness, lymphadenopathy, rash other than her left eye and the surrounding area, or other complaints. The patient states that she thinks that she may be dehydrated or anemic. The patient does not specify if she is chronically anemic. The patient adds that she has not been eating well recently and that she has been unable to eat because she experiences abdominal bloating afterward. She thinks those symptoms are secondary to her history of gastroparesis. The patient saw an ship erector this morning and he switched her from PO medication to topical eye drops. The patient states that she had lab work done 2 days ago that showed her creatinine was 2. Source of History: patient Onset: several days ago Position: other (global) Quality: other (dehydration) Timing: other (persistent) Associated Symptoms: + nausea, + vomiting Note: blurry vision in left eye, left eye pain, lightheadedness, difficulty ambulating Review of Systems See HPI for pertinent positives and negatives. A total of ten systems were reviewed and were otherwise negative. Past Medical & Surgical Medical Problems: (1) Anemia (2) ARF (acute renal failure) (3) Gastroparesis (4) GERD (gastroesophageal reflux disease) (5) Herpes zoster (6) Hip strain (7) Hyperlipidemia (8) Hypertension (9) Lumbar strain (10) Renal failure (11) SOB (shortness of breath) Surgical Problems: (1) Renal transplant, status post Family History Diabetes mellitus Heart disease Hypertension Kidney disease Kidney stones Lung disease Social History Smoking Status: Current Every Day Smoker Marital Status: Housing Status: lives with family Occupation Status: employed Current/Historical Medications Scheduled Ascorbic Acid (Ascorbic Acid), 500 MG PO BID Azathioprine (Imuran), 100 MG PO QAM Baclofen (Baclofen), 1 TAB PO TID Biotin (Biotin), 10,000 MCG PO QAM Control Pills ( Control Pills), 1 TAB PO QAM Buspirone Hcl (Buspar), 5 MG PO BID Calcium Carbonate-Vitamin D (Calcium 500 + D), 1 TAB PO BID Cetirizine (Zyrtec), 10 MG PO QAM Cholecalciferol (Vitamin D3), 1 CAP PO QAM Cimetidine (Tagamet), 1 TAB PO BID Cyclosporine (Cyclosporine), 200 MG PO BID Diclofenac Sodium (Topical) (Diclofenac Sodium), 1 DOSE TOP DAILY Docusate Sodium (Colace), 1 CAP PO BID Fexofenadine Hcl (Earnestine Allergy), 1 TAB PO QAM Fluticasone Propionate (Nasal) (Flonase Allergy Relief), 1 SPRAY JOEL HS Cofluffdybo-Mmwnopvlpdw-Xhb C- (Glucosamine Chondroitin), 1 TAB PO BID Linaclotide (Linzess), 1 TAB PO HS Lisinopril (Zestril), 20 MG PO BID Melatonin (Melatonin), 15 MG PO HS Methylcellulose (Laxative) (Citrucel), 2-4 TABS PO HS Mirtazapine (Remeron), 1 TAB PO HS Multivitamin (Multivitamin), 1 TAB PO QAM Ofloxacin (Oph) (Ocuflox Oph Soln), 1 DROP OPB DAILY [place]-3 Fatty Acids (Fish Oil 1200 mg), 2 CAP PO HS Oxcarbazepine (Trileptal), 0.5 TAB PO BID Oxycodone Hcl (Oxycodone Hcl), 1 TAB PO QID Oxymorphone Hcl (Opana Er (Crush Resistant), 1 TAB PO TID Pantoprazole (Protonix), 40 MG PO BID Polyethylene Glycol 3350 (Miralax), 17 GM PO DAILY Prednisone (Prednisone), 2.5 MG PO QAM Simvastatin (Zocor), 5 MG PO QPM Verapamil Sust Rel (Calan Sr Ext Rel), 240 MG PO BID Vitamin E (E-400), 1 CAP PO QAM Zolpidem Tartrate (Ambien), 10 MG PO HS Scheduled PRN Acetaminophen (Tylenol), 1,000 MG PO PRN PRN for Pain Lorazepam (Ativan), 1 MG PO TID PRN for Anxiety Ondansetron Hcl (Zofran), 4 MG PO tidprn PRN for Nausea Rizatriptan Benzoate (Maxalt), 10 MG PO PRN PRN for Headache Sumatriptan Succinate (Imitrex), 100 MG PO UD PRN for Headache Allergies Coded Allergies: Morphine (Verified Allergy, Intermediate, HIVES, HAS HAD CODEINE W/O PROBLEM, 09/06/16) HIVES, HAS HAD CODEINE W/O PROBLEM HAS ALSO TOLERATED TRAMADOL Hydralazine (Verified Allergy, Unknown, HIVES, 09/06/16) Uncoded Allergies: NITRATES (Adverse Reaction, Unknown, MIRAINES, 05/10/15) Physical Exam Vital Signs Date Time Temp Pulse Resp B/P (MAP) Pulse Ox O2 Delivery O2 Flow Rate FiO2 09/06/16 21:12 72 16 144/79 97 Room Air 09/06/16 19:09 72 16 143/77 97 Room Air 09/06/16 18:03 73 14 125/66 97 Room Air 09/06/16 17:48 96 Room Air 09/06/16 16:50 36.8 79 16 137/78 98 Room Air Physical Exam GENERAL: Awake, alert, tired appearing, no distress HENT: Normocephalic, atraumatic. TM's normal. Oropharynx unremarkable. EYES: PERRL. EOMI. Left eye has mild conjunctival injection. Lateral nystagmus. Sclera non-icteric. NECK: Supple. No nuchal rigidity. FROM. No JVD or bruit. RESPIRATORY: CTA CARDIAC: RRR. No murmur. ABDOMEN: Soft, non distended. No tenderness to palpation. No rebound or guarding. No masses. RECTAL: Deferred. MUSCULOSKELETAL: Unremarkable. No edema. No discoloration. Gross motor strength symmetric. NEURO: Cranial nerves 2-12 grossly intact. Normal sensorium. No sensory or motor deficits noted. Speech normal. No pronator drift. SKIN: No rash or jaundice noted. LYMPH: No adenopathy. Medical Decision & Procedures Laboratory Results Test 09/06/16 18:00 09/06/16 19:05 Ovalocytes 1+ Prothrombin Time 11.6 SECONDS (9.0-12.0) Prothromb Time International Ratio 1.1 (0.9-1.1) Activated Partial Thromboplast Time 19.6 SECONDS (21.0-31.0) Partial Thromboplastin Ratio 0.8 Magnesium Level 2.5 mg/dl (1.8-2.4) Total Bilirubin 1.0 mg/dl (0.2-1) Direct Bilirubin 0.4 mg/dl (0-0.2) Aspartate Amino Transf (AST/SGOT) 37 U/L (15-37) Alanine Aminotransferase (ALT/SGPT) 32 U/L (12-78) Alkaline Phosphatase 80 U/L (45-117) Troponin I < 0.015 ng/ml (0-0.045) Total Protein 7.5 gm/dl (6.4-8.2) Albumin 4.1 gm/dl (3.4-5.0) Lipase 116 U/L (73-393) Thyroid Stimulating Hormone (TSH) 0.677 uIu/ml (0.300-4.500) Human Chorionic Gonadotropin, Qual NEG (NEG) Urine Color YELLOW Urine Appearance CLEAR (CLEAR) Urine pH 5.5 (4.5-7.5) Urine Specific [place] 1.014 (1.000-1.030) Urine Protein TRACE (NEG) Urine Glucose (UA) NEG (NEG) Urine Ketones NEG (NEG) Urine Occult Blood NEG (NEG) Urine Nitrite NEG (NEG) Urine Bilirubin NEG (NEG) Urine Urobilinogen NEG (NEG) Urine Leukocyte Esterase NEG (NEG) Urine WBC (Auto) 0 /hpf (0-5) Urine RBC (Auto) 0-4 /hpf (0-4) Urine Hyaline Casts (Auto) 0 /lpf (0-5) Urine Epithelial Cells (Auto) 0-5 /lpf (0-5) Urine Bacteria (Auto) NEG (NEG) Urine Opiates Screen POS (NEG) Urine Methadone, Qualitative NEG (NEG) Urine Barbiturates NEG (NEG) Urine Phencyclidine (PCP) Level NEG (NEG) Ur Amphetamine/Methamphetamine NEG (NEG) MDMA (Ecstasy) Screen POS (NEG) Urine Benzodiazepines Screen NEG (NEG) Urine Cocaine Metabolite NEG (NEG) Urine Marijuana (THC) NEG (NEG) Laboratory results reviewed by me Medications Administered Medications (Trade) Dose Ordered Sig/Jose G Route Start Time Stop Time Status Last Admin Dose Admin Sodium Chloride 1,000 ml @ 125 mls/hr Q8H STAT IV 09/06/16 17:07 09/06/16 21:12 DC 09/06/16 18:00 125 MLS/HR Sodium Chloride 1,000 ml @ 999 mls/hr Q1H1M STAT IV 09/06/16 17:07 09/06/16 18:07 DC 09/06/16 18:00 999 MLS/HR Promethazine HCl 25 mg/Sodium Chloride 51 ml @ 204 mls/hr NOW STAT IV 09/06/16 17:15 09/06/16 17:29 DC 09/06/16 18:00 204 MLS/HR Sodium Chloride 1,000 ml @ 999 mls/hr Q1H1M STAT IV 09/06/16 19:28 09/06/16 20:28 DC 09/06/16 19:47 999 MLS/HR Sodium Chloride 1,000 ml @ 100 mls/hr Q10H IV 09/06/16 21:15 10/06/16 21:14 09/07/16 17:08 100 MLS/HR Ondansetron HCl (Zofran Inj) 4 mg Q6H PRN IV 09/06/16 21:15 10/06/16 21:14 09/07/16 14:33 4 MG Ondansetron HCl (Zofran Inj) 4 mg 2112 ONCE IV 09/06/16 21:12 09/06/16 22:20 DC 09/06/16 22:27 4 MG ECG Indication: nausea, vomiting Rate (beats per minute): 74 Rhythm: normal sinus Findings: Q waves (Inferior), no acute ischemic change, no ectopy, other (left atrial enlargement) ED Course 1706: Ordered Sodium Chloride 1000 ml @ 999 mls/hr IV, Sodium Chloride 1000 ml @ 125 mls/hr IV 1711: The patient was evaluated in room C10. A complete history and physical exam was performed. 1714: Ordered Promethazine HCl 25 mg/Sodium Chloride 51 ml @ 204 mls/hr IV 1916: Upon reexamination, the patient was resting comfortably. I discussed the test results and treatment plan with her. She is amenable to coming into the hospital for further evaluation. The patient will be evaluated for further management. 1927: Ordered Sodium Chloride 1000 ml @ 999 mls/hr IV 1932: [facility] the [facility]'s [facility] The patient will be evaluated for further treatment and disposition. Medical Decision Medication Reconciliation: I attest that I have personally reviewed the patient' s current medication list Blood pressure screening: Patient was found to have normal blood pressure on screening and does not require follow-up. Triage Nursing notes reviewed. The patient's presentation and history were concerning for nausea, vomiting, and difficulty walking with a history of renal transplant. The patient was evaluated. She was non-focal on examination. She was hydrated with NSS and given phenergan. She was allowed to take her immunosuppressive medications as scheduled. Additional normal saline was given. The patient was feeling somewhat better. Blood work obtained revealed a creatinine of 1.9. The patient's baseline creatinine is less than 1. Chemistry panel revealed dehydration. The patient was still not feeling well. She notes that her creatinine was elevated to 2.0 2 days ago. CBC showed a moderate anemia. The patient is not at the transfusion threshold at the moment but may require additional intervention. Given the situation very concerned as the patient has a renal transplant. I recommended further management in the hospital. The patient was in agreement. [facility] The patient was evaluated for further treatment Consults Time Called: 1930 Consulting Physician: Dr. Scot Hilton Returned Call: 1932 Discussed the patient's case [facility] The patient will be evaluated for further treatment and disposition. Impression Primary Impression: Acute kidney injury Additional Impressions: Nausea & vomiting Dizziness Anemia Scribe Attestation The scribe's documentation has been prepared under my direction and personally reviewed by me in its entirety. I confirm that the note above accurately reflects all work, treatment, procedures, and medical decision making performed by me. Departure Information Dispostion Being Evaluated By Hospitalist Referrals Stuart Ravi M.D. (PCP) Patient Instructions My [facility] Problem Qualifiers Additional Impressions: Nausea & vomiting Vomiting type: unspecified Vomiting Intractability: non-intractable Qualified Codes: R11.2 - Nausea with vomiting, unspecified Anemia Anemia type: unspecified type Qualified Codes: D64.9 - Anemia, unspecified
[2016-09-07] MEDS: ZIRGAN OP SCH ×2 (18:52→22:31)
[2016-09-07] MEDS ORDERED: ZIRGAN OP SCH (19:00)
--- NOTE | 2016-09-07 19:18 | Medical Consult ---
Consultation Date of Consultation: Sep 07, 2016. Attending Physician: Ronald Alcaraz M.D. 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 Background information: -Diagnosed a case of cold agglutinin hemolytic anemia, cold agglutinin titer was around 1: 20,480, in February,. Her hemoglobin level was around 4.6 g/ dL at that time. -did not respond well with the prednisone therapy, received blood trans support at that time -received Rituxan x4, last cycle was received on 04/01/2014 with gradual improvement of the hemoglobin level. -cold agglutinin titer was negative in May,. -hemoglobin level dropped down to around 6.2 g/dL in April,, received 2 units of PRBC, received Rituxan x4 which was started on 05/17/2015. Gradual improvement of the hemoglobin level noted. - she received Xarelto for brief time for right lower extremity DVT. Follow-up Doppler evaluation done in May, showed no evidence of residual or recurrent DVT. 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 - significant gastroparesis causing intermittent nausea, in the appetite -pancreatic cystic lesions noted. -cold agglutinin titer--> 1:320 (05/08/2015) Her hemoglobin level was around 12-13 g/dL earlier in 2016 and late 2015. Hemoglobin level slightly dropped between 11-12 g/dL in June,-Jul, 2016. -hemoglobin level further dropped to around 9.4 g/dL as of 08/24/2016. -platelet count has remained in the normal range in early 2016, dropped down to around 131,000 as of 08/24/2016. Now she is admitted at [facility] for dehydration, worsening kidney function test, recently she had developed left facial/ophthalmic herpes zoster infection, she was treated with Valtrex but because of underlying gastroparesis, she could not tolerate that quite well, had frequent nausea, vomiting, also complain of some constipation, nonspecific abdominal discomfort, no BM for the last one week no fever, no chest pain but complain of significant dizziness, she came to the ER for further evaluation, I reviewed her medical records. Now she is off the Valtrex, she denies any bleeding from any sites. Also noticed to have worsening kidney function test with serum creatinine level increased from 1.9 mg/dL, receiving IV hydration with improvement of the kidney function test noted. Weight loss presently -WBC 4100, H&H of 9.4/26.3, MCV 89, Platelet count of 131,000 (08/24/2016) -WBC 3200, H&H of 8.4/22.8, MCV 89, Platelet count of 173,000 (09/06/2016) -WBC 2900, H&H of 7.7/21.6, Platelet count of 151,000, MCV 89.6 (09/07/2016) -Absolute reticulocyte count--> 0.05 (09/06/2016)--> 0.04 (09/07/2016) Blood workup done during this hospitalization: -haptoglobin level--> pending. -LDH--> 275 -Vitamin B12--> 1234 -Folic acid--> 22 -serum iron 78, TIBC 165, iron saturation 42%, Ferritin level--> 1142 -serum creatinine level--> 1.9 (09/06/2016)--> 1.2 (09/07/2016). - Total bilirubin: 1.0, direct bilirubin 0.4, AST 37, ALT 32, alkaline phosphatase 80, -CT scan of the abdomen pelvis done on 09/06/2016 showed 6 mm nodule in the right lower lobe, normal gallbladder, enlarged spleen measuring up to 16 cm noted, multiple small cystic lesions noted in the pancreas which was seen in the previous MRCP, no definite retroperitoneal lymphadenopathy noted. Severe constipation present. On exam: - Alert and oriented x3, thin built woman, not in any distress. - HEENT: no icterus, pallor present, Throat: Normal. - Neck: No palpable cervical lymphadenopathy. - Chest: clear to auscultation. - Abdomen: soft, nontender, no hepatomegaly, palpable spleen in the left upper quadrant versus stool in the colon.. - No focal neuro deficit. - Extremities: no finger clubbing, no leg edema. -ultrasound of the abdomen done in June, showed borderline spleen measuring around 12.7 cm noted at that time. ASSESSMENT AND PLAN: 45-year-old female, a known case of cold agglutinin hemolytic anemia initially diagnosed in February,, received blood trans support at that time, received Rituxan x4 with good response but had another episode of hemolytic anemia in May,, received another round of Rituxan x4 with improvement of the hemoglobin level, her hemoglobin level was in the normal range earlier this year but for the last few months gradual drop in the hemoglobin level noted, no evidence of iron deficiency noted, normal Vitamin B12 and Folic acid level noted, spleen size was reported to be around 12.7 cm about a year back, now it has increased to around 16 cm, slight drop in the white blood cell count also could be related to splenomegaly, no intra- abdominal lymphadenopathy noted, small lung nodule, history of smoking present, recently she had herpes zoster infection involving the left upper face, received Valtrex but could not tolerate that quite well because of underlying gastroparesis with frequent nausea, vomiting, poor oral intake and dehydration with worsening kidney function test but now it has improved after IV hydration. She received 2 units of PRBC. Mildly elevated LDH level noted, no significant reticulocytosis noted, haptoglobin level pending. She had significantly elevated cold agglutinin titer when she was diagnosed in late 2013, it became negative, it was positive in April, when she had another episode of hemolysis. I would like to get cold agglutinin titer. Will consider for another round of Rituxan chemotherapy as an outpatient. Will start Folic acid 1 mg every day. Thanks for the consultation Dr. Chad Clemons Hem/Onc (This note was completed using the dictation program Fluency Direct. As such, there may be misspellings, word substitutions, or other variations that should not change the essence of the clinical content of this encounter note. If there is need for further clarification, please direct questions to the provider listed above.) Past Medical/Surgical History Medical Problems: (1) Acute kidney injury Status: Acute (2) Anemia Status: Chronic (3) Dizziness Status: Acute (4) GERD (gastroesophageal reflux disease) Status: Chronic (5) Hyperlipidemia Status: Chronic (6) Hypertension Status: Chronic (7) Nausea & vomiting Status: Acute (8) Renal failure Status: Chronic Family History Diabetes mellitus Heart disease Hypertension Kidney disease Kidney stones Lung disease Social History Smoking Status: Current Every Day Smoker Marital Status: Housing Status: lives with family Occupation Status: employed Allergies Coded Allergies: Morphine (Verified Allergy, Intermediate, HIVES, HAS HAD CODEINE W/O PROBLEM, 09/06/16) HIVES, HAS HAD CODEINE W/O PROBLEM HAS ALSO TOLERATED TRAMADOL Hydralazine (Verified Allergy, Unknown, HIVES, 09/06/16) Uncoded Allergies: NITRATES (Adverse Reaction, Unknown, MIRAINES, 05/10/15) Current Inpatient Medications Current Inpatient Medications Medications (Trade) Dose Ordered Sig/Jose G Route Start Time Stop Time Status Last Admin Dose Admin Sodium Chloride 1,000 ml @ 100 mls/hr Q10H IV 09/06/16 21:15 10/06/16 21:14 09/07/16 17:08 100 MLS/HR Ondansetron HCl (Zofran Inj) 4 mg Q6H PRN IV 09/06/16 21:15 10/06/16 21:14 09/07/16 14:33 4 MG Azathioprine (Imuran Tab) 100 mg QAM PO 09/07/16 09:00 10/07/16 08:59 09/07/16 10:12 100 MG Baclofen (Lioresal Tab) 2.5 mg TID PO 09/07/16 08:00 10/07/16 07:59 09/07/16 14:37 2.5 MG Buspirone HCl (BusPAR TAB) 5 mg BID PO 09/07/16 09:00 10/07/16 08:59 09/07/16 10:15 5 MG Cetirizine HCl (zyrTEC TAB) 10 mg QAM PO 09/07/16 09:00 10/07/16 08:59 09/07/16 10:17 10 MG Famotidine (Pepcid Tab) 20 mg BID PO 09/07/16 08:00 10/07/16 07:59 09/07/16 10:16 20 MG Cyclosporine (Sandimmune Cap) 200 mg BID PO 09/07/16 09:00 10/07/16 08:59 09/07/16 10:12 200 MG Fexofenadine HCl (Earnestine Tab) 180 mg QAM PO 09/07/16 09:00 10/07/16 08:59 09/07/16 10:11 180 MG Fluticasone Propionate (Flonase Nasal [place]) 1 sprays HS JOEL 09/07/16 22:00 10/07/16 21:59 Lorazepam (Ativan Tab) 1 mg TID PRN PO 09/06/16 22:15 10/06/16 22:14 Multivitamins (Multivitamin Tab) 1 tab QAM PO 09/07/16 09:00 10/07/16 08:59 09/07/16 10:14 1 TAB Verapamil HCl (Calan-Sr Tab) 240 mg BID PO 09/07/16 09:00 10/07/16 08:59 09/07/16 10:12 240 MG Polyethylene (Miralax Powder Packet) 17 gm QAM PO 09/07/16 08:00 10/07/16 07:59 Mirtazapine (Remeron Tab) 30 mg HS PRN PO 09/06/16 22:15 10/06/16 22:14 Oxcarbazepine (Trileptal Tab) 300 mg BID PO 09/07/16 09:00 10/07/16 08:59 09/07/16 10:11 300 MG Acetaminophen 650 mg/Empty Bag 65 ml @ 260 mls/hr Q6H PRN IV 09/06/16 22:15 10/06/16 22:14 09/07/16 16:22 260 MLS/HR Senna/Docusate Sodium (Senokot S Tab) 2 tab BID PO 09/07/16 09:00 10/07/16 08:59 09/07/16 10:15 2 TAB Acetaminophen (Tylenol Tab) 650 mg Q4H PRN PO 09/06/16 22:45 10/06/16 22:44 Hydromorphone HCl (Dilaudid Inj) 0.5 mg Q12H PRN IV 09/06/16 23:00 09/20/16 22:14 09/07/16 00:43 0.5 MG Promethazine HCl 12.5 mg/Sodium Chloride 50.5 ml @ 204 mls/hr Q6H PRN IV 09/07/16 00:00 10/07/16 00:00 09/07/16 09:41 204 MLS/HR Lubiprostone (Amitiza) 24 mcg BID PO 09/07/16 00:30 10/07/16 00:29 09/07/16 10:16 24 MCG Nicotine (Nicoderm Cq 7 Mg Patch) 1 patch QAM TD 09/07/16 08:00 10/07/16 07:59 Miscellaneous (Remove Nicoderm Patch) 1 ea HS N/A 09/07/16 07:59 10/07/16 07:58 Prednisone (PredniSONE TAB) 2.5 mg DAILY PO 09/07/16 08:00 10/07/16 07:59 09/07/16 10:13 2.5 MG Pantoprazole Sodium (Protonix Tab) 40 mg BID PO 09/07/16 08:00 10/07/16 07:59 09/07/16 10:18 40 MG Simvastatin (Zocor Tab) 5 mg QPM PO 09/07/16 21:00 10/07/16 20:59 Oxycodone/ Acetaminophen (Percocet 5-325mg Tab) pain not relieved by tyle... Q6H PRN PO 09/07/16 08:00 09/20/16 22:44 09/07/16 14:43 2 TAB Diclofenac Sodium (Voltaren 1% Top Gel) 1 appln TID EXT 09/07/16 14:00 10/07/16 13:59 09/07/16 14:32 1 APPLN Non-Formulary Medication (Non-Formulary Patient'S Own Med) 1 ea DAILY PO 09/08/16 08:00 10/08/16 07:59 Non-Formulary Medication (Non-Formulary Patient'S Own Med) 1 ea Taper 5XDQ4H OP 09/07/16 19:00 09/21/16 18:59 09/07/16 18:52 1 EA Physical Exam Date Time Temp Pulse Resp B/P (MAP) Pulse Ox O2 Delivery O2 Flow Rate FiO2 09/07/16 16:05 Room Air 09/07/16 15:15 37.2 65 16 137/72 96 09/07/16 14:15 37.1 69 16 133/75 09/07/16 13:45 36.9 74 16 125/71 09/07/16 13:30 36.9 69 16 124/68 09/07/16 13:15 36.9 73 16 122/69 09/07/16 08:00 Room Air 09/07/16 07:59 36.9 69 18 140/73 (95) 93 Room Air 09/07/16 02:35 37.1 68 20 110/63 98 09/07/16 01:45 36.9 68 20 120/70 (87) 97 Room Air 09/07/16 01:35 36.9 68 20 120/70 97 09/07/16 01:05 36.9 66 20 136/78 99 09/07/16 00:50 37.1 68 20 133/70 98 09/07/16 00:00 99 Room Air 09/06/16 22:43 37.2 75 16 143/74 Room Air 09/06/16 22:29 37.2 75 16 143/74 (97) 98 Room Air 09/06/16 21:53 68 18 126/76 98 Room Air 09/06/16 21:12 72 16 144/79 97 Room Air Laboratory Results Last 24 Hours Test 09/06/16 23:10 09/07/16 06:55 Hemoglobin 7.2 g/dL 7.7 g/dL Hematocrit 19.5 % 21.6 % Absolute Reticulocyte Count 0.05 10^6/uL 0.04 10^6/uL Percent Reticulocyte Count 2.2 % 1.8 % Iron Level 78 mcg/dl Total Iron Binding Capacity 165 mcg/dl Transferrin 132 mg/dl Transferrin % Saturation 42 % Ferritin 1142.7 ng/ml Vitamin B12 Level 1234 pg/mL Folate 22.36 ng/mL White Blood Count 2.97 K/uL Red Blood Count 2.41 M/uL Mean Corpuscular Volume 89.6 fL Mean Corpuscular Hemoglobin 32.0 pg Mean Corpuscular Hemoglobin Concent 35.6 g/dl Platelet Count 151 K/uL Mean Platelet Volume 8.5 fL Neutrophils (%) (Auto) 51.6 % Lymphocytes (%) (Auto) 37.7 % Monocytes (%) (Auto) 9.4 % Eosinophils (%) (Auto) 0.7 % Basophils (%) (Auto) 0.3 % Neutrophils # (Auto) 1.53 K/uL Lymphocytes # (Auto) 1.12 K/uL Monocytes # (Auto) 0.28 K/uL Eosinophils # (Auto) 0.02 K/uL Basophils # (Auto) 0.01 K/uL RDW Standard Deviation 47.6 fL RDW Coefficient of Variation 14.6 % Immature Granulocyte % (Auto) 0.3 % Immature Granulocyte # (Auto) 0.01 K/uL Red Blood Cell Morphology Unremarkable Sodium Level 140 mmol/L Potassium Level 4.0 mmol/L Chloride Level 109 mmol/L Carbon Dioxide Level 23 mmol/L Anion Gap 8.0 mmol/L Blood Urea Nitrogen 27 mg/dl Creatinine 1.20 mg/dl Est Creatinine Clear Calc Drug Dose 47.3 ml/min Estimated GFR () 63.7 Estimated GFR (Non- 54.9 BUN/Creatinine Ratio 22.1 Random Glucose 78 mg/dl Calcium Level 8.2 mg/dl Lactate Dehydrogenase 275 U/L
[2016-09-07] MEDS: SIMVASTATIN 5 MG TAB PO SCH (20:36)
[2016-09-07] MEDS ORDERED: ERYTHROMYCIN OP OINT 5 MG/GM 3.5 GM TUBE TOP SCH (22:00)
[2016-09-07] MEDS: FLUTICASONE PROPIONATE NA SPR 16 GM BTL NAE SCH (22:30)
[2016-09-08 00:07] VITALS: BP 141/76; PULSE 71; TEMP 37.8; O2SAT 96
[2016-09-08] MEDS: SODIUM CHLORIDE 0.9% 1000ML 1,000 ML IV SCH ×3 (03:46→23:38)
[2016-09-08] MEDS: PROMETHAZINE HCL INJ 12.5 MG in SODIUM CHLORIDE 0.9% 50ML 50 ML IV PRN ×3 (03:47→18:27)
[2016-09-08] MEDS: OXYCODONE/ACETAMINOPHEN 5-325 TAB PO PRN ×4 (06:07→22:20)
[2016-09-08] MEDS: ZIRGAN OP SCH ×5 (06:08→23:38)
[2016-09-08] MEDS ORDERED: GANCICLOVIR 0.15% OP SCH (07:00)
[2016-09-08 07:12] VITALS: BP 100/64; PULSE 66; TEMP 36.9; O2SAT 98
[2016-09-08 07:45] LABS: BASO % 0.3 %; BASO ABS # 0.01 K/uL (0-0.2); EOS % 0.7 %; HEMATOCRIT 24.7 % (37-47); IG% 0.7 %; LYMPH % 36.6 %; LYMPH ABS # 1.07 K/uL (1.2-3.4); MEAN CELL VOLUME 87.9 fL (80-100); MEAN CORPUSCULAR HEMOGLOBIN 31.3 pg (25-34); MEAN CORPUSCULAR HGB CONC 35.6 g/dl (32-36); MEAN PLATELET VOLUME 8.4 fL (7.4-10.4); MONO % 10.6 %; NEUT % 51.1 %; PLATELET COUNT 150 K/uL (130-400); RED BLOOD COUNT 2.81 M/uL (4.2-5.4); WHITE BLOOD COUNT 2.92 K/uL (4.8-10.8)
[2016-09-08] MEDS: NICOTINE 7 MG/24 HR TDSY TD SCH (08:00)
[2016-09-08] MEDS: NORETHINDRONE PO SCH (08:00)
[2016-09-08] MEDS: DICLOFENAC SOD 1% GEL 100 GM TUBE EXT SCH ×3 (08:00→19:43)
[2016-09-08] MEDS: POLYETHYLENE (MIRALAX) 17 GM PACK PO SCH (08:00)
[2016-09-08 08:27] LABS: BUN/CREATININE RATIO 16.7 (10-20); CALCIUM 8.1 mg/dl (8.5-10.1); CREATININE 0.7 mg/dl (0.60-1.20); MAGNESIUM 1.7 mg/dl (1.8-2.4); POTASSIUM 3.4 mmol/L (3.5-5.1)
[2016-09-08] MEDS: MULTIVITAMIN TAB PO SCH (08:28)
[2016-09-08] MEDS: OXCARBAZEPINE 150 MG TAB PO SCH ×2 (08:28→20:24)
[2016-09-08] MEDS: CETIRIZINE HCL 10 MG TAB PO SCH (08:28)
[2016-09-08] MEDS: VERAPAMIL HCL 240 MG TABCR PO SCH ×2 (08:29→19:40)
[2016-09-08] MEDS: FAMOTIDINE 20 MG TAB PO SCH ×2 (08:29→19:40)
[2016-09-08] MEDS: LUBIPROSTONE 8 MCG CAP PO SCH ×2 (08:29→19:42)
[2016-09-08 08:30] LABS: ANISOCYTOSIS PRESENT; COMPLETE YES; LARGE PLATELETS 1+
[2016-09-08] MEDS: BACLOFEN 10 MG TAB PO SCH ×3 (08:30→19:37)
[2016-09-08] MEDS: PANTOprazole SOD 40 MG TAB PO SCH ×2 (08:30→19:44)
[2016-09-08] MEDS: AZATHIOPRINE 50 MG TAB PO SCH (08:31)
[2016-09-08] MEDS: FEXOFENADINE HCL 180 MG TAB PO SCH (08:31)
[2016-09-08] MEDS: DOCUSATE SODIUM/SENNA 50/8.6MG TAB PO SCH ×2 (08:32→19:39)
[2016-09-08] MEDS: CYCLOSPORINE 100 MG PO SCH ×2 (08:34→19:41)
--- NOTE | 2016-09-08 11:11 | Nephrology Progress Note ---
Nephrology Progress Note Date of Service Sep 08, 2016. Chief Complaint F/U for acute kidney injury with history of renal transplant. Subjective Marci was seen and examined in her room this morning. She has been otherwise feeling well but still has nausea. Hemoglobin improved to 8.8. Renal function normal normal, creatinine 0.7, other electrolyte acceptable. Blood pressure well controlled. Has decent urine output. Review of Systems A complete review of systems was performed. Pertinent positives are noted above. All other systems are negative. Vital Signs Last 8 Hrs Date Time Temp Pulse Resp B/P (MAP) Pulse Ox O2 Delivery O2 Flow Rate FiO2 09/08/16 07:12 36.9 66 18 100/64 (76) 98 Room Air Last Recorded Weight Weight (Kilograms): 50.200 Physical Exam GENERAL: young female, AAA x 3, pleasant, healthy-appearing, not in any distress. NECK: Supple, no JVD. RESPIRATORY: Normal breathing efforts, no accessory muscle use, clear to auscultation bilaterally, no wheezes or rales. CARDIOVASCULAR: S1, S2 normal, rate rhythm regular. EXTREMITY: No lower extremity edema NEURO: speech fluent. PSYCHIATRY: Normal mood and judgment Family History Diabetes mellitus Heart disease Hypertension Kidney disease Kidney stones Lung disease Social History Smoking Status: Current every day smoker Marital Status: Occupation: employed Laboratory Results Past 24 Hours 09/08/16 07:29 Red Blood Count 2.81, Mean Corpuscular Volume 87.9, Mean Corpuscular Hemoglobin 31.3, Mean Corpuscular Hemoglobin Concent 35.6, Mean Platelet Volume 8.4, Neutrophils (%) (Auto) 51.1, Lymphocytes (%) (Auto) 36.6, Monocytes (%) (Auto) 10.6, Eosinophils (%) (Auto) 0.7, Basophils (%) (Auto) 0.3, Neutrophils # (Auto ) 1.49, Lymphocytes # (Auto) 1.07, Monocytes # (Auto) 0.31, Eosinophils # (Auto ) 0.02, Basophils # (Auto) 0.01 09/08/16 07:29 Test 09/07/16 19:39 09/07/16 20:23 09/08/16 07:29 Stool Occult Blood NEGATIVE (NEGATIVE) White Blood Count 2.92 K/uL (4.8-10.8) Red Blood Count 2.81 M/uL (4.2-5.4) Hemoglobin 8.8 g/dL (12.0-16.0) Hematocrit 24.7 % (37-47) Mean Corpuscular Volume 87.9 fL (80-100) Mean Corpuscular Hemoglobin 31.3 pg (25-34) Mean Corpuscular Hemoglobin Concent 35.6 g/dl (32-36) Platelet Count 150 K/uL (130-400) Mean Platelet Volume 8.4 fL (7.4-10.4) Neutrophils (%) (Auto) 51.1 % Lymphocytes (%) (Auto) 36.6 % Monocytes (%) (Auto) 10.6 % Eosinophils (%) (Auto) 0.7 % Basophils (%) (Auto) 0.3 % Neutrophils # (Auto) 1.49 K/uL (1.4-6.5) Lymphocytes # (Auto) 1.07 K/uL (1.2-3.4) Monocytes # (Auto) 0.31 K/uL (0.11-0.59) Eosinophils # (Auto) 0.02 K/uL (0-0.5) Basophils # (Auto) 0.01 K/uL (0-0.2) RDW Standard Deviation 46.0 fL (36.4-46.3) RDW Coefficient of Variation 14.7 % (11.5-14.5) Immature Granulocyte % (Auto) 0.7 % Immature Granulocyte # (Auto) 0.02 K/uL (0.00-0.02) Large Platelets 1+ Anisocytosis PRESENT Anion Gap 8.0 mmol/L (3-11) Est Creatinine Clear Calc Drug Dose 81.1 ml/min Estimated GFR () 122.1 Estimated GFR (Non- 105.4 BUN/Creatinine Ratio 16.7 (10-20) Calcium Level 8.1 mg/dl (8.5-10.1) Magnesium Level 1.7 mg/dl (1.8-2.4) Allergies Coded Allergies: Morphine (Verified Allergy, Intermediate, HIVES, HAS HAD CODEINE W/O PROBLEM, 09/06/16) HIVES, HAS HAD CODEINE W/O PROBLEM HAS ALSO TOLERATED TRAMADOL Hydralazine (Verified Allergy, Unknown, HIVES, 09/06/16) Uncoded Allergies: NITRATES (Adverse Reaction, Unknown, MIRAINES, 2/29/16) Medications Current Inpatient Medications Medications (Trade) Dose Ordered Sig/Jose G Route Start Time Stop Time Status Last Admin Dose Admin Sodium Chloride 1,000 ml @ 100 mls/hr Q10H IV 09/06/16 21:15 10/06/16 21:14 09/08/16 03:46 100 MLS/HR Ondansetron HCl (Zofran Inj) 4 mg Q6H PRN IV 09/06/16 21:15 10/06/16 21:14 09/07/16 14:33 4 MG Azathioprine (Imuran Tab) 100 mg QAM PO 09/07/16 09:00 10/07/16 08:59 09/08/16 08:31 100 MG Baclofen (Lioresal Tab) 2.5 mg TID PO 09/07/16 08:00 10/07/16 07:59 09/08/16 08:30 2.5 MG Cetirizine HCl (zyrTEC TAB) 10 mg QAM PO 09/07/16 09:00 10/07/16 08:59 09/08/16 08:28 10 MG Famotidine (Pepcid Tab) 20 mg BID PO 09/07/16 08:00 10/07/16 07:59 09/08/16 08:29 20 MG Cyclosporine (Sandimmune Cap) 200 mg BID PO 09/07/16 09:00 10/07/16 08:59 09/08/16 08:34 200 MG Fexofenadine HCl (Earnestine Tab) 180 mg QAM PO 09/07/16 09:00 10/07/16 08:59 09/08/16 08:31 180 MG Fluticasone Propionate (Flonase Nasal [place]) 1 sprays HS JOEL 09/07/16 22:00 10/07/16 21:59 09/07/16 22:30 1 SPRAYS Lorazepam (Ativan Tab) 1 mg TID PRN PO 09/06/16 22:15 10/06/16 22:14 Multivitamins (Multivitamin Tab) 1 tab QAM PO 09/07/16 09:00 10/07/16 08:59 09/08/16 08:28 1 TAB Verapamil HCl (Calan-Sr Tab) 240 mg BID PO 09/07/16 09:00 10/07/16 08:59 09/08/16 08:29 240 MG Polyethylene (Miralax Powder Packet) 17 gm QAM PO 09/07/16 08:00 10/07/16 07:59 Mirtazapine (Remeron Tab) 30 mg HS PRN PO 09/06/16 22:15 10/06/16 22:14 Oxcarbazepine (Trileptal Tab) 300 mg BID PO 09/07/16 09:00 10/07/16 08:59 09/08/16 08:28 300 MG Acetaminophen 650 mg/Empty Bag 65 ml @ 260 mls/hr Q6H PRN IV 09/06/16 22:15 10/06/16 22:14 09/07/16 16:22 260 MLS/HR Senna/Docusate Sodium (Senokot S Tab) 2 tab BID PO 09/07/16 09:00 10/07/16 08:59 09/08/16 08:32 2 TAB Acetaminophen (Tylenol Tab) 650 mg Q4H PRN PO 09/06/16 22:45 10/06/16 22:44 Hydromorphone HCl (Dilaudid Inj) 0.5 mg Q12H PRN IV 09/06/16 23:00 09/20/16 22:14 09/07/16 22:28 0.5 MG Promethazine HCl 12.5 mg/Sodium Chloride 50.5 ml @ 204 mls/hr Q6H PRN IV 09/07/16 00:00 10/07/16 00:00 09/08/16 10:32 204 MLS/HR Lubiprostone (Amitiza) 24 mcg BID PO 09/07/16 00:30 10/07/16 00:29 09/08/16 08:29 24 MCG Nicotine (Nicoderm Cq 7 Mg Patch) 1 patch QAM TD 09/07/16 08:00 10/07/16 07:59 Miscellaneous (Remove Nicoderm Patch) 1 ea HS N/A 09/07/16 07:59 10/07/16 07:58 Prednisone (PredniSONE TAB) 2.5 mg DAILY PO 09/07/16 08:00 10/07/16 07:59 09/08/16 08:29 2.5 MG Pantoprazole Sodium (Protonix Tab) 40 mg BID PO 09/07/16 08:00 10/07/16 07:59 09/08/16 08:30 40 MG Simvastatin (Zocor Tab) 5 mg QPM PO 09/07/16 21:00 10/07/16 20:59 09/07/16 20:36 5 MG Oxycodone/ Acetaminophen (Percocet 5-325mg Tab) pain not relieved by tyle... Q6H PRN PO 09/07/16 08:00 09/20/16 22:44 09/08/16 06:07 2 TAB Diclofenac Sodium (Voltaren 1% Top Gel) 1 appln TID EXT 09/07/16 14:00 10/07/16 13:59 09/07/16 20:40 1 APPLN Non-Formulary Medication (Non-Formulary Patient'S Own Med) 1 ea DAILY PO 09/08/16 08:00 10/08/16 07:59 09/08/16 08:00 1 EA Non-Formulary Medication (Non-Formulary Patient'S Own Med) 1 ea Taper 5XDQ4H OP 09/07/16 19:00 09/21/16 18:59 09/08/16 06:08 1 EA Folic Acid (Folvite Tab) 1 mg QAM PO 09/08/16 08:00 10/08/16 07:59 09/08/16 08:34 1 MG Buspirone HCl (Buspar Tab) 5 mg BID PO 09/07/16 20:00 10/07/16 19:59 09/08/16 08:34 5 MG Potassium Chloride (Klor-Con M10) 40 meq NOW STAT PO 09/08/16 10:51 09/08/16 10:52 UNV Magnesium Sulfate 1 gm/Prmx 100 ml @ 100 mls/hr NOW STAT IV 09/08/16 10:54 09/08/16 11:53 UNV Impression (1) ARF (acute renal failure) (2) Anemia (3) Herpes zoster (4) GERD (gastroesophageal reflux disease) Marci Is a 45-year-old female status 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 She developed acute kidney injury in the setting of them nausea, vomiting, volume depletion after started on Valtrex for left eye herpes simplex infection. Admitted yesterday and started on IV hydration, clinically significantly improved. Still has nausea but vomiting resolved. Creatinine on admission was 1.9 which improved to 1.2 this morning which seems to be her baseline. She has been tolerating her immunosuppressant medication through her acute illness over last few days. 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 On admission hemoglobin was 7.2, received 1 unit of blood transfusion and hemoglobin improved to 8.8 EGD and colonoscopy in 2016 was otherwise unremarkable except gastritis, currently on Protonix. She denies any episode of GI bleeding recently. Currently acute kidney injury resolved creatinine 0.7 other electrolyte acceptable, blood pressure acceptable. Recommendations --suggest DC IV fluid --renal function now at baseline, will continue to monitor renal function with daily renal panel while inpatient --Continue on cyclosporin 200 twice a day, Imuran 100 daily and prednisone 2.5 daily --Hb better, Haptoglobin is pending --being followed by Hematology for further evaluation for anemia and possible recurrence of AHA
[2016-09-08] MEDS ORDERED: POTASSIUM CHLORIDE 10 MEQ TABCR PO STA (11:14)
[2016-09-08] MEDS ORDERED: MAGNESIUM SULFATE 1GM / D5W 1 GM in PREMIXED IN D5W 100 ML IV STA (11:15)
--- NOTE | 2016-09-08 12:01 | Progress Note ---
Internal Med Progress Note Date of Service: Sep 08, 2016. Provider Documentation: SUBJECTIVE: The patient was seen and examined Symptoms started following the use of Valtrex prescribed by the Editor Managing Director Still feels very dizzy with any movement out of bed Feels a little worse today Generally weak and lethargic Has had some Nausea and vomited once this morning OBJECTIVE: Vital Signs-as noted below Exam: General-no distress at rest Eyes-normal ENT-normal Neck-supple Lungs-Clear to ausucltate bilaterally Heart-Regular,no murmur Abdomen-Benign.Enlarged spleen Extremities-No edema Neuro-AAOx3 NO focal neuro deficit Lab data as noted below. ASSESSMENT & PLAN: ARF likely prerenal 2 to nausea/emesis symptoms Multifactorial : Acyclovir intolerance, history shingles status post Rx, Narcotic induced constipation History MPGN status post renal transplant on chronic immunosuppression H/O Gastroparesis as per px Hold ACEI until renal function normalizes Received IVF and advised increased oral intake Nephrology evaluation-appreciate input Renal function is normalized Chronic pain on narcotics (plan for outpatient wean as per outpx PCP notes) Judicious narcotic use Hold [id number] narcotics, neuro-psychotropics for for sedation confusion ( May need dose adjustment for renal function) (px currently agreeable to holding her Opana inpx- refusing available Oxycontin substitute) Will not make any change in her current pain medications 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 rule out occult bleed, progression of anemia over the last few months Received 2 unit PRBC during this admission Appreciate Hematology input Folate added Rituxin therapy as an OP Herpes Zoster Ophthalmicus Was on Valtrex-on hold due to current symptoms Continue topical Rx prescribed by chief technician x ray for shingles hx DVT sp tx ongoing tobacco abuse SPN on CT Tobacco abuse Nicotine patch outpx ffup surveillance CT chest study for SPN DVT prophylaxis SCDs RE anemia Full code Increase ambulation Likely home tomorrow Vital Signs: Date Time Temp Pulse Resp B/P (MAP) Pulse Ox O2 Delivery O2 Flow Rate FiO2 09/08/16 08:00 Room Air 09/08/16 07:12 36.9 66 18 100/64 (76) 98 Room Air 09/08/16 00:07 37.8 71 20 141/76 (97) 96 Room Air 09/08/16 00:00 Room Air 09/07/16 16:05 Room Air 09/07/16 15:15 37.2 65 16 137/72 96 09/07/16 14:15 37.1 69 16 133/75 09/07/16 13:45 36.9 74 16 125/71 09/07/16 13:30 36.9 69 16 124/68 09/07/16 13:15 36.9 73 16 122/69 Lab Results: Results Past 24 Hours Test 09/07/16 19:39 09/07/16 20:23 09/08/16 07:29 Range/Units Stool Occult Blood NEGATIVE NEGATIVE White Blood Count 2.92 4.8-10.8 K/uL Red Blood Count 2.81 4.2-5.4 M/uL Hemoglobin 8.8 12.0-16.0 g/dL Hematocrit 24.7 37-47 % Mean Corpuscular Volume 87.9 80-100 fL Mean Corpuscular Hemoglobin 31.3 25-34 pg Mean Corpuscular Hemoglobin Concent 35.6 32-36 g/dl Platelet Count 150 130-400 K/uL Mean Platelet Volume 8.4 7.4-10.4 fL Neutrophils (%) (Auto) 51.1 % Lymphocytes (%) (Auto) 36.6 % Monocytes (%) (Auto) 10.6 % Eosinophils (%) (Auto) 0.7 % Basophils (%) (Auto) 0.3 % Neutrophils # (Auto) 1.49 1.4-6.5 K/uL Lymphocytes # (Auto) 1.07 1.2-3.4 K/uL Monocytes # (Auto) 0.31 0.11-0.59 K/uL Eosinophils # (Auto) 0.02 0-0.5 K/uL Basophils # (Auto) 0.01 0-0.2 K/uL RDW Standard Deviation 46.0 36.4-46.3 fL RDW Coefficient of Variation 14.7 11.5-14.5 % Immature Granulocyte % (Auto) 0.7 % Immature Granulocyte # (Auto) 0.02 0.00-0.02 K/uL Large Platelets 1+ Anisocytosis PRESENT Sodium Level 140 136-145 mmol/L Potassium Level 3.4 3.5-5.1 mmol/L Chloride Level 108 98-107 mmol/L Carbon Dioxide Level 24 21-32 mmol/L Anion Gap 8.0 3-11 mmol/L Blood Urea Nitrogen 12 7-18 mg/dl Creatinine 0.70 0.60-1.20 mg/dl Est Creatinine Clear Calc Drug Dose 81.1 ml/min Estimated GFR () 122.1 Estimated GFR (Non- 105.4 BUN/Creatinine Ratio 16.7 10-20 Random Glucose 84 70-99 mg/dl Calcium Level 8.1 8.5-10.1 mg/dl Magnesium Level 1.7 1.8-2.4 mg/dl
[2016-09-08 13:33] VITALS: BP 138/75; PULSE 74; O2SAT 98
[2016-09-08] MEDS: ACETAMINOPHEN IV 650 MG in EMPTY BAG 0 ML IV PRN (14:00)
[2016-09-08] MEDS: OXYMORPHONE HCL 15 MG PO SCH (14:30)
[2016-09-08 14:39] VITALS: BP 147/77; PULSE 69; TEMP 37.2; O2SAT 98
[2016-09-08] MEDS: OXYMORPHONE PO SCH (15:30)
[2016-09-08] MEDS: HYDROmorphone INJ 0.5 MG/0.5 ML SYR IV PRN (18:26)
[2016-09-08 19:34] VITALS: BP 132/75; PULSE 78; TEMP 36.9; O2SAT 99
[2016-09-08] MEDS: SIMVASTATIN 5 MG TAB PO SCH (20:25)
--- NOTE | 2016-09-08 20:25 | Hematology/Oncology Prog Note ---
Hematology/Onc Progress Note Date of Service Sep 08, 2016. Subjective I saw her at bedside in the late afternoon, somewhat comfortable but still having increasing nausea, she says that she would like to eat but feeling nauseous, no fever, no new bleeding from any sites, now she is off the intravenous hydration, she says that she had good bowel movement, no blood in the stool, abdominal pain and distention has improved, hemodynamically she has remained stable. - WBC 2900, H&H of 8.8/24.7, Platelet count of 150,000 -haptoglobin--> less than 15. -BUN/Creat: 12/0.7. - -cold agglutinin titer--> pending. -urine culture negative. Overall stable blood counts noted, hemoglobin level has remained stable around 8.8 g/dL, she received 2 units of PRBC so far. It is likely that she will go home in the next few days, I am planning for Rituxan chemotherapy as an outpatient, will follow-up cold agglutinin titer. She will continue Folic acid [address] Chad Clemons Hem/Onc (This note was completed using the dictation program Fluency Direct. As such, there may be misspellings, word substitutions, or other variations that should not change the essence of the clinical content of this encounter note. If there is need for further clarification, please direct questions to the provider listed above.) Vital Signs Vital Signs Past 12 Hours Date Time Temp Pulse Resp B/P (MAP) Pulse Ox O2 Delivery O2 Flow Rate FiO2 09/08/16 19:34 36.9 78 132/75 (94) 99 Room Air 09/08/16 16:00 Room Air 09/08/16 14:39 37.2 69 18 147/77 (100) 98 09/08/16 13:33 74 98
[2016-09-08] MEDS: OPANA 20 MG PO SCH (22:00)
[2016-09-08] MEDS: OXYMORPHONE HCL 20 MG PO SCH (22:12)
[2016-09-08] MEDS: FLUTICASONE PROPIONATE NA SPR 16 GM BTL NAE SCH (22:15)
[2016-09-08 23:34] VITALS: BP 147/79; PULSE 72; TEMP 37.2; O2SAT 98
[2016-09-08] MEDS: LORAZEPAM 1 MG TAB PO PRN (23:41)
[2016-09-09] MEDS: OXYCODONE/ACETAMINOPHEN 5-325 TAB PO PRN ×3 (05:01→17:36)
[2016-09-09] MEDS: OPANA 20 MG PO SCH ×3 (06:00→22:27)
[2016-09-09] MEDS: OXYMORPHONE HCL 20 MG PO SCH ×3 (06:29→22:27)
[2016-09-09] MEDS: ZIRGAN OP SCH ×5 (06:29→22:31)
[2016-09-09 07:20] LABS: BASO % 0.4 %; BASO ABS # 0.01 K/uL (0-0.2); COMPLETE YES; EOS % 0.7 %; HEMATOCRIT 24.1 % (37-47); IG% 0.4 %; LYMPH % 36.3 %; LYMPH ABS # 1.03 K/uL (1.2-3.4); MEAN CELL VOLUME 86.4 fL (80-100); MEAN CORPUSCULAR HEMOGLOBIN 32.3 pg (25-34); MEAN CORPUSCULAR HGB CONC 37.3 g/dl (32-36); MEAN PLATELET VOLUME 8.5 fL (7.4-10.4); MONO % 13.4 %; NEUT % 48.8 %; PLATELET COUNT 152 K/uL (130-400); RED BLOOD COUNT 2.79 M/uL (4.2-5.4); WHITE BLOOD COUNT 2.84 K/uL (4.8-10.8)
[2016-09-09 07:35] VITALS: BP 144/64; PULSE 68; TEMP 36.9; O2SAT 99
[2016-09-09 07:45] LABS: BUN/CREATININE RATIO 15.4 (10-20); CALCIUM 8.1 mg/dl (8.5-10.1); CREATININE 0.69 mg/dl (0.60-1.20); POTASSIUM 3.1 mmol/L (3.5-5.1)
[2016-09-09] MEDS: NICOTINE 7 MG/24 HR TDSY TD SCH (08:00)
[2016-09-09] MEDS: POLYETHYLENE (MIRALAX) 17 GM PACK PO SCH (08:00)
[2016-09-09] MEDS: OXCARBAZEPINE 150 MG TAB PO SCH ×2 (09:06→21:28)
[2016-09-09] MEDS: FAMOTIDINE 20 MG TAB PO SCH ×2 (09:06→21:27)
[2016-09-09] MEDS: VERAPAMIL HCL 240 MG TABCR PO SCH ×2 (09:07→21:26)
[2016-09-09] MEDS: MULTIVITAMIN TAB PO SCH (09:07)
[2016-09-09] MEDS: FEXOFENADINE HCL 180 MG TAB PO SCH (09:07)
[2016-09-09] MEDS: PANTOprazole SOD 40 MG TAB PO SCH ×2 (09:07→21:27)
[2016-09-09] MEDS: DOCUSATE SODIUM/SENNA 50/8.6MG TAB PO SCH ×2 (09:07→21:28)
[2016-09-09] MEDS: BACLOFEN 10 MG TAB PO SCH ×3 (09:08→21:26)
[2016-09-09] MEDS: CETIRIZINE HCL 10 MG TAB PO SCH (09:08)
[2016-09-09] MEDS: CYCLOSPORINE 100 MG PO SCH ×2 (09:09→21:28)
[2016-09-09] MEDS: AZATHIOPRINE 50 MG TAB PO SCH (09:09)
[2016-09-09] MEDS: NORETHINDRONE PO SCH (09:12)
[2016-09-09] MEDS: LUBIPROSTONE 8 MCG CAP PO SCH ×2 (09:13→21:25)
[2016-09-09] MEDS: SODIUM CHLORIDE 0.9% 1000ML 1,000 ML IV SCH ×2 (09:23→19:18)
[2016-09-09] MEDS ORDERED: POTASSIUM CHLORIDE 10 MEQ TABCR PO STA (09:30)
[2016-09-09] MEDS: DICLOFENAC SOD 1% GEL 100 GM TUBE EXT SCH ×3 (09:51→21:21)
--- NOTE | 2016-09-09 11:19 | Nephrology Progress Note ---
Nephrology Progress Note Date of Service Sep 09, 2016. Chief Complaint Follow up evaluation of this patient with kidney transplant Subjective Mrs. Burgos was seen and examined in her hospital room this morning. She is now able to tolerate her diet and has been drinking a little water. She complains of continued weakness and has difficulty even ambulating short distances. Review of Systems Constitutional: No fever Cardiovascular: No chest pain Respiratory: No dyspnea at rest Abdomen: + nausea, No vomiting Genitourinary - Female: No dysuria Extremities: No leg edema A complete review of systems was performed. Pertinent positives are noted above. All other systems are negative. Vital Signs Last 8 Hrs Date Time Temp Pulse Resp B/P (MAP) Pulse Ox O2 Delivery O2 Flow Rate FiO2 09/09/16 10:49 Room Air 09/09/16 07:35 36.9 68 20 144/64 (90) 99 Room Air Last Recorded Weight Weight (Kilograms): 50.200 Physical Exam General Appearance: no apparent distress Head: atraumatic Eyes: PERRL, EOMI Neck: no adenopathy Respiratory/Chest: lungs clear, no respiratory distress Cardiovascular: regular rate, rhythm Abdomen/GI: normal bowel sounds, non tender, soft Extremities/Musculoskelatal: no calf tenderness, no pedal edema Neurologic/Psych: alert, oriented x 3 Family History Diabetes mellitus Heart disease Hypertension Kidney disease Kidney stones Lung disease Social History Smoking Status: Current every day smoker Marital Status: Occupation: employed Laboratory Results Past 24 Hours 09/09/16 06:42 Red Blood Count 2.79, Mean Corpuscular Volume 86.4, Mean Corpuscular Hemoglobin 32.3, Mean Corpuscular Hemoglobin Concent 37.3, Mean Platelet Volume 8.5, Neutrophils (%) (Auto) 48.8, Lymphocytes (%) (Auto) 36.3, Monocytes (%) (Auto) 13.4, Eosinophils (%) (Auto) 0.7, Basophils (%) (Auto) 0.4, Neutrophils # (Auto ) 1.39, Lymphocytes # (Auto) 1.03, Monocytes # (Auto) 0.38, Eosinophils # (Auto ) 0.02, Basophils # (Auto) 0.01 09/09/16 06:42 Test 09/09/16 06:42 White Blood Count 2.84 K/uL (4.8-10.8) Red Blood Count 2.79 M/uL (4.2-5.4) Hemoglobin 9.0 g/dL (12.0-16.0) Hematocrit 24.1 % (37-47) Mean Corpuscular Volume 86.4 fL (80-100) Mean Corpuscular Hemoglobin 32.3 pg (25-34) Mean Corpuscular Hemoglobin Concent 37.3 g/dl (32-36) Platelet Count 152 K/uL (130-400) Mean Platelet Volume 8.5 fL (7.4-10.4) Neutrophils (%) (Auto) 48.8 % Lymphocytes (%) (Auto) 36.3 % Monocytes (%) (Auto) 13.4 % Eosinophils (%) (Auto) 0.7 % Basophils (%) (Auto) 0.4 % Neutrophils # (Auto) 1.39 K/uL (1.4-6.5) Lymphocytes # (Auto) 1.03 K/uL (1.2-3.4) Monocytes # (Auto) 0.38 K/uL (0.11-0.59) Eosinophils # (Auto) 0.02 K/uL (0-0.5) Basophils # (Auto) 0.01 K/uL (0-0.2) RDW Standard Deviation 44.3 fL (36.4-46.3) RDW Coefficient of Variation 14.4 % (11.5-14.5) Immature Granulocyte % (Auto) 0.4 % Immature Granulocyte # (Auto) 0.01 K/uL (0.00-0.02) Nucleated RBC Absolute Count (auto) 0.02 K/uL (0-0) Nucleated Red Blood Cells % 0.6 % Anion Gap 8.0 mmol/L (3-11) Est Creatinine Clear Calc Drug Dose 82.3 ml/min Estimated GFR () 122.7 Estimated GFR (Non- 105.9 BUN/Creatinine Ratio 15.4 (10-20) Calcium Level 8.1 mg/dl (8.5-10.1) Allergies Coded Allergies: Morphine (Verified Allergy, Intermediate, HIVES, HAS HAD CODEINE W/O PROBLEM, 09/06/16) HIVES, HAS HAD CODEINE W/O PROBLEM HAS ALSO TOLERATED TRAMADOL Hydralazine (Verified Allergy, Unknown, HIVES, 09/06/16) Uncoded Allergies: NITRATES (Adverse Reaction, Unknown, MIRAINES, 05/10/15) Medications Current Inpatient Medications Medications (Trade) Dose Ordered Sig/Jose G Route Start Time Stop Time Status Last Admin Dose Admin Sodium Chloride 1,000 ml @ 100 mls/hr Q10H IV 09/06/16 21:15 10/06/16 21:14 09/09/16 09:23 100 MLS/HR Ondansetron HCl (Zofran Inj) 4 mg Q6H PRN IV 09/06/16 21:15 10/06/16 21:14 09/07/16 14:33 4 MG Azathioprine (Imuran Tab) 100 mg QAM PO 09/07/16 09:00 10/07/16 08:59 09/09/16 09:09 100 MG Cetirizine HCl (zyrTEC TAB) 10 mg QAM PO 09/07/16 09:00 10/07/16 08:59 09/09/16 09:08 10 MG Famotidine (Pepcid Tab) 20 mg BID PO 09/07/16 08:00 10/07/16 07:59 09/09/16 09:06 20 MG Cyclosporine (Sandimmune Cap) 200 mg BID PO 09/07/16 09:00 10/07/16 08:59 09/09/16 09:09 200 MG Fexofenadine HCl (Earnestine Tab) 180 mg QAM PO 09/07/16 09:00 10/07/16 08:59 09/09/16 09:07 180 MG Fluticasone Propionate (Flonase Nasal [place]) 1 sprays HS JOEL 09/07/16 22:00 10/07/16 21:59 09/08/16 22:15 1 SPRAYS Lorazepam (Ativan Tab) 1 mg TID PRN PO 09/06/16 22:15 10/06/16 22:14 09/08/16 23:41 1 MG Multivitamins (Multivitamin Tab) 1 tab QAM PO 09/07/16 09:00 10/07/16 08:59 09/09/16 09:07 1 TAB Verapamil HCl (Calan-Sr Tab) 240 mg BID PO 09/07/16 09:00 10/07/16 08:59 09/09/16 09:07 240 MG Polyethylene (Miralax Powder Packet) 17 gm QAM PO 09/07/16 08:00 10/07/16 07:59 Mirtazapine (Remeron Tab) 30 mg HS PRN PO 09/06/16 22:15 10/06/16 22:14 Oxcarbazepine (Trileptal Tab) 300 mg BID PO 09/07/16 09:00 10/07/16 08:59 09/09/16 09:06 300 MG Acetaminophen 650 mg/Empty Bag 65 ml @ 260 mls/hr Q6H PRN IV 09/06/16 22:15 10/06/16 22:14 09/08/16 14:00 260 MLS/HR Senna/Docusate Sodium (Senokot S Tab) 2 tab BID PO 09/07/16 09:00 10/07/16 08:59 09/09/16 09:07 2 TAB Acetaminophen (Tylenol Tab) 650 mg Q4H PRN PO 09/06/16 22:45 10/06/16 22:44 Hydromorphone HCl (Dilaudid Inj) 0.5 mg Q12H PRN IV 09/06/16 23:00 09/20/16 22:14 09/08/16 18:26 0.5 MG Promethazine HCl 12.5 mg/Sodium Chloride 50.5 ml @ 204 mls/hr Q6H PRN IV 09/07/16 00:00 10/07/16 00:00 09/08/16 18:27 204 MLS/HR Lubiprostone (Amitiza) 24 mcg BID PO 09/07/16 00:30 10/07/16 00:29 09/09/16 09:13 24 MCG Nicotine (Nicoderm Cq 7 Mg Patch) 1 patch QAM TD 09/07/16 08:00 10/07/16 07:59 Miscellaneous (Remove Nicoderm Patch) 1 ea HS N/A 09/07/16 07:59 10/07/16 07:58 Prednisone (PredniSONE TAB) 2.5 mg DAILY PO 09/07/16 08:00 10/07/16 07:59 09/09/16 09:09 2.5 MG Pantoprazole Sodium (Protonix Tab) 40 mg BID PO 09/07/16 08:00 10/07/16 07:59 09/09/16 09:07 40 MG Simvastatin (Zocor Tab) 5 mg QPM PO 09/07/16 21:00 10/07/16 20:59 09/08/16 20:25 5 MG Oxycodone/ Acetaminophen (Percocet 5-325mg Tab) pain not relieved by tyle... Q6H PRN PO 09/07/16 08:00 09/20/16 22:44 09/09/16 05:01 2 TAB Diclofenac Sodium (Voltaren 1% Top Gel) 1 appln TID EXT 09/07/16 14:00 10/07/16 13:59 09/09/16 09:51 1 APPLN Non-Formulary Medication (Non-Formulary Patient'S Own Med) 1 ea DAILY PO 09/08/16 08:00 10/08/16 07:59 09/09/16 09:12 1 EA Non-Formulary Medication (Non-Formulary Patient'S Own Med) 1 ea Taper [id number] OP 09/07/16 19:00 09/21/16 18:59 09/09/16 06:29 1 EA Folic Acid (Folvite Tab) 1 mg QAM PO 09/08/16 08:00 10/08/16 07:59 09/09/16 09:08 1 MG Buspirone HCl (Buspar Tab) 5 mg BID PO 09/07/16 20:00 10/07/16 19:59 09/09/16 09:08 5 MG Oxymorphone HCl (Opana Er) 20 mg BID@0600,2200 PO 09/08/16 22:00 09/15/16 06:01 09/09/16 06:29 20 MG Oxymorphone HCl (Opana Er (Crush Resistant) 15 mg DAILY@1400 PO 09/08/16 15:30 09/14/16 14:01 09/08/16 14:30 15 MG Non-Formulary Medication (Patient'S Own Controlled Med) 1 ea BID@0600,2200 PO 09/08/16 22:00 09/15/16 06:01 Non-Formulary Medication (Patient'S Own Controlled Med) 1 ea DAILY@1400 PO 09/08/16 15:30 09/14/16 14:01 Baclofen (Lioresal Tab) 10 mg TID PO 09/09/16 14:00 10/07/16 07:59 Lisinopril (Zestril Tab) 20 mg BID PO 09/09/16 20:00 10/09/16 19:59 Impression (1) ARF (acute renal failure) (2) Anemia (3) Herpes zoster (4) GERD (gastroesophageal reflux disease) Marci Is a 45-year-old female status 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 She developed acute kidney injury in the setting of them nausea, vomiting, volume depletion after started on Valtrex for left eye herpes simplex infection. Admitted yesterday and started on IV hydration, clinically significantly improved. Still has nausea but vomiting resolved. Creatinine on admission was 1.9 which improved to 1.2 this morning which seems to be her baseline. She has been tolerating her immunosuppressant medication through her acute illness over last few days. 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 On admission hemoglobin was 7.2, received 1 unit of blood transfusion and hemoglobin improved to 8.8 EGD and colonoscopy in 2016 was otherwise unremarkable except gastritis, currently on Protonix. She denies any episode of GI bleeding recently. Currently acute kidney injury resolved creatinine 0.7 other electrolyte acceptable, blood pressure acceptable. Recommendations -- Patient remains weak and clinically volume contracted. Continue IV hydration. -- DESIREE has resolved. Will continue to monitor kidney function -- Continue Cyclosporine 200 twice a day, Imuran 100 daily and Prednisone 2.5 daily -- Hematology note reviewed today. Patient will be seen as an outpatient to possibly resume Rituximab therapy
[2016-09-09] MEDS: OXYMORPHONE HCL 15 MG PO SCH (14:00)
[2016-09-09] MEDS: OXYMORPHONE PO SCH (14:00)
[2016-09-09] MEDS ORDERED: LISINOPRIL 20 MG TAB PO ONE (14:30)
[2016-09-09 15:20] VITALS: BP 155/81; PULSE 77; TEMP 36.7; O2SAT 98
[2016-09-09 16:00] VITALS: O2SAT 98
--- NOTE | 2016-09-09 16:03 | Progress Note ---
Internal Med Progress Note Date of Service: Sep 09, 2016. Provider Documentation: SUBJECTIVE: The patient was seen and examined Symptoms started following the use of Valtrex prescribed by the Pharmacy Intern Still feels very dizzy with any movement out of bed Feels a little worse today Generally weak and lethargic Has had some Nausea and vomited once this morning Has been taking DOUBLE the dose of Trileptal for the last ~1-2 months-she admitted this today Otherwise much better clinically OBJECTIVE: Vital Signs-as noted below Exam: General-no distress at rest Eyes-normal ENT-normal Neck-supple Lungs-Clear to ausucltate bilaterally Heart-Regular,no murmur Abdomen-Benign.Enlarged spleen Extremities-No edema Neuro-AAOx3 NO focal neuro deficit Lab data as noted below. ASSESSMENT & PLAN: ARF likely prerenal 2 to nausea/emesis symptoms Multifactorial : Acyclovir intolerance, history shingles status post Rx, Narcotic induced constipation History MPGN status post renal transplant on chronic immunosuppression H/O Gastroparesis as per px Hold ACEI until renal function normalizes-restarted on 09/09/16 Received IVF and advised increased oral intake Nephrology evaluation-appreciate input Renal function is normalized Continue current treatment Accidental Overdose of Trileptal Has been taking double the dose of Trileptal for the last ~1-2 months Her recent symptomatology may be related to increasing dose of Trileptal Back to her Usual dose since admission No change of her management now irrespective of the level of Trileptal Will not send for the level Chronic pain on narcotics (plan for outpatient wean as per outpx PCP notes) Judicious narcotic use Hold [id number] narcotics, neuro-psychotropics for for sedation confusion ( May need dose adjustment for renal function) (px currently agreeable to holding her Opana inpx- refusing available Oxycontin substitute) Will not make any change in her current pain medications-continue exactly the way these were prescribed as an OP 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 rule out occult bleed, progression of anemia over the last few months Received 2 unit PRBC during this admission Appreciate Hematology input Folate added Rituxin therapy as an OP Herpes Zoster Ophthalmicus Was on Valtrex-on hold due to current symptoms Continue topical Rx prescribed by boiler house inspector for shingles hx DVT sp tx ongoing tobacco abuse SPN on CT Tobacco abuse Nicotine patch outpx ffup surveillance CT chest study for SPN DVT prophylaxis SCDs RE anemia Full code Increase ambulation Remains generally weak and lethargic to be discharged Vital Signs: Date Time Temp Pulse Resp B/P (MAP) Pulse Ox O2 Delivery O2 Flow Rate FiO2 09/09/16 15:20 36.7 77 20 155/81 (105) 98 Room Air 09/09/16 10:49 Room Air 09/09/16 07:35 36.9 68 20 144/64 (90) 99 Room Air 09/09/16 00:00 Room Air 09/08/16 23:34 37.2 72 20 147/79 (101) 98 Room Air 09/08/16 20:00 Room Air 09/08/16 19:34 36.9 78 132/75 (94) 99 Room Air 09/08/16 16:00 Room Air Lab Results: Results Past 24 Hours Test 09/09/16 06:42 09/09/16 11:30 Range/Units White Blood Count 2.84 4.8-10.8 K/uL Red Blood Count 2.79 4.2-5.4 M/uL Hemoglobin 9.0 12.0-16.0 g/dL Hematocrit 24.1 37-47 % Mean Corpuscular Volume 86.4 80-100 fL Mean Corpuscular Hemoglobin 32.3 25-34 pg Mean Corpuscular Hemoglobin Concent 37.3 32-36 g/dl Platelet Count 152 130-400 K/uL Mean Platelet Volume 8.5 7.4-10.4 fL Neutrophils (%) (Auto) 48.8 % Lymphocytes (%) (Auto) 36.3 % Monocytes (%) (Auto) 13.4 % Eosinophils (%) (Auto) 0.7 % Basophils (%) (Auto) 0.4 % Neutrophils # (Auto) 1.39 1.4-6.5 K/uL Lymphocytes # (Auto) 1.03 1.2-3.4 K/uL Monocytes # (Auto) 0.38 0.11-0.59 K/uL Eosinophils # (Auto) 0.02 0-0.5 K/uL Basophils # (Auto) 0.01 0-0.2 K/uL RDW Standard Deviation 44.3 36.4-46.3 fL RDW Coefficient of Variation 14.4 11.5-14.5 % Immature Granulocyte % (Auto) 0.4 % Immature Granulocyte # (Auto) 0.01 0.00-0.02 K/uL Nucleated RBC Absolute Count (auto) 0.02 0-0 K/uL Nucleated Red Blood Cells % 0.6 % Sodium Level 137 136-145 mmol/L Potassium Level 3.1 3.5-5.1 mmol/L Chloride Level 105 98-107 mmol/L Carbon Dioxide Level 24 21-32 mmol/L Anion Gap 8.0 3-11 mmol/L Blood Urea Nitrogen 11 7-18 mg/dl Creatinine 0.69 0.60-1.20 mg/dl Est Creatinine Clear Calc Drug Dose 82.3 ml/min Estimated GFR () 122.7 Estimated GFR (Non- 105.9 BUN/Creatinine Ratio 15.4 10-20 Random Glucose 83 70-99 mg/dl Calcium Level 8.1 8.5-10.1 mg/dl Microbiology Results 09/09/16 C.difficile Toxin B Gene (PCR) - Final, Complete 09/09/16 Shiga Toxin Test, Received Pending 09/09/16 Stool Culture, Received Pending
[2016-09-09] MEDS: LORAZEPAM 1 MG TAB PO PRN (16:36)
[2016-09-09] MEDS: ONDANSETRON INJ 2 MG/ML 2 ML VIAL IV PRN (17:35)
[2016-09-09] MEDS: FLUTICASONE PROPIONATE NA SPR 16 GM BTL NAE SCH (21:29)
[2016-09-09] MEDS: SIMVASTATIN 5 MG TAB PO SCH (21:29)
[2016-09-09] MEDS: LISINOPRIL 20 MG TAB PO SCH (21:29)
[2016-09-09] MEDS: HYDROmorphone INJ 0.5 MG/0.5 ML SYR IV PRN (22:22)
[2016-09-09 23:55] VITALS: BP 135/79; PULSE 91; TEMP 37.6; O2SAT 97
[2016-09-10] MEDS: OXYCODONE/ACETAMINOPHEN 5-325 TAB PO PRN ×3 (00:10→14:56)
[2016-09-10] MEDS ORDERED: RIZATRIPTAN BENZOATE 10 MG TAB PO ONE ×2 (00:15→02:22)
[2016-09-10] MEDS ORDERED: ZOLPIDEM TARTRATE 10 MG TAB PO PRN (02:15)
[2016-09-10] MEDS: SODIUM CHLORIDE 0.9% 1000ML 1,000 ML IV SCH (05:44)
[2016-09-10] MEDS: OPANA 20 MG PO SCH (05:45)
[2016-09-10] MEDS: OXYMORPHONE HCL 20 MG PO SCH (05:45)
[2016-09-10] MEDS: ZIRGAN OP SCH ×3 (05:45→14:55)
[2016-09-10 06:13] LABS: BASO % 0.4 %; BASO ABS # 0.01 K/uL (0-0.2); COMPLETE YES; EOS % 0.8 %; HEMATOCRIT 25.9 % (37-47); IG% 0.4 %; LYMPH % 42.9 %; LYMPH ABS # 1.12 K/uL (1.2-3.4); MEAN CELL VOLUME 88.1 fL (80-100); MEAN CORPUSCULAR HGB CONC 36.3 g/dl (32-36); MEAN PLATELET VOLUME 8.9 fL (7.4-10.4); NEUT % 42.5 %; PLATELET COUNT 167 K/uL (130-400); RED BLOOD COUNT 2.94 M/uL (4.2-5.4); WHITE BLOOD COUNT 2.61 K/uL (4.8-10.8)
[2016-09-10 06:59] LABS: BUN/CREATININE RATIO 13.8 (10-20); CALCIUM 8.4 mg/dl (8.5-10.1); CREATININE 0.71 mg/dl (0.60-1.20); MAGNESIUM 1.8 mg/dl (1.8-2.4); PHOSPHORUS 1.8 mg/dl (2.5-4.9); POTASSIUM 3.7 mmol/L (3.5-5.1)
[2016-09-10 07:56] VITALS: BP 142/79; PULSE 84; TEMP 36.9; O2SAT 97
[2016-09-10] MEDS: NORETHINDRONE PO SCH (08:00)
[2016-09-10] MEDS: FEXOFENADINE HCL 180 MG TAB PO SCH (08:23)
[2016-09-10] MEDS: LUBIPROSTONE 8 MCG CAP PO SCH (08:25)
[2016-09-10] MEDS: VERAPAMIL HCL 240 MG TABCR PO SCH (08:25)
[2016-09-10] MEDS: LISINOPRIL 20 MG TAB PO SCH (08:26)
[2016-09-10] MEDS: PANTOprazole SOD 40 MG TAB PO SCH (08:26)
[2016-09-10] MEDS: CETIRIZINE HCL 10 MG TAB PO SCH (08:26)
[2016-09-10] MEDS: CYCLOSPORINE 100 MG PO SCH (08:27)
[2016-09-10] MEDS: FAMOTIDINE 20 MG TAB PO SCH (08:29)
[2016-09-10] MEDS: OXCARBAZEPINE 150 MG TAB PO SCH (08:29)
[2016-09-10] MEDS: NICOTINE 7 MG/24 HR TDSY TD SCH (08:31)
[2016-09-10] MEDS: DOCUSATE SODIUM/SENNA 50/8.6MG TAB PO SCH (08:32)
[2016-09-10] MEDS: BACLOFEN 10 MG TAB PO SCH ×2 (08:34→14:53)
[2016-09-10] MEDS: MULTIVITAMIN TAB PO SCH (08:34)
[2016-09-10] MEDS: AZATHIOPRINE 50 MG TAB PO SCH (08:34)
[2016-09-10] MEDS: DICLOFENAC SOD 1% GEL 100 GM TUBE EXT SCH ×2 (08:35→14:57)
[2016-09-10] MEDS: POLYETHYLENE (MIRALAX) 17 GM PACK PO SCH (08:35)
[2016-09-10] MEDS ORDERED: POTASSIUM PHOS 3 MMOL/1 ML INFUSION IV STA (09:25)
[2016-09-10] MEDS ORDERED: POTASSIUM PHOSPHATE INJ 30 MMOL in SODIUM CHLORIDE 0.9% 500ML 500 ML IV ONE (10:00)
[2016-09-10] MEDS: HYDROmorphone INJ 0.5 MG/0.5 ML SYR IV PRN (10:33)
[2016-09-10] MEDS ORDERED: NURSING VERBAL MED ORDER ONE ×2 (10:45→12:15)
[2016-09-10] MEDS: LORAZEPAM 1 MG TAB PO PRN ×2 (11:28→17:00)
--- NOTE | 2016-09-10 11:29 | Nephrology Progress Note ---
Nephrology Progress Note Date of Service Sep 10, 2016. Chief Complaint Follow up evaluation of this patient with kidney transplant Subjective Mrs. Burgos was seen & examined in her hospital room this morning. She reports that her weakness is improved. She is able to ambulated short distances in her room without assistance. Her appetite has improved and she is maintaining adequate fluid intake. Review of Systems Constitutional: No fever Cardiovascular: No chest pain Respiratory: No dyspnea at rest Abdomen: No pain, No nausea, No vomiting Extremities: No leg edema A complete review of systems was performed. Pertinent positives are noted above. All other systems are negative. Vital Signs Last 8 Hrs Date Time Temp Pulse Resp B/P (MAP) Pulse Ox O2 Delivery O2 Flow Rate FiO2 09/10/16 08:00 Room Air 09/10/16 07:56 36.9 84 16 142/79 (100) 97 Room Air Last Recorded Weight Weight (Kilograms): 50.200 Physical Exam General Appearance: no apparent distress Head: normocephalic, atraumatic Eyes: PERRL, EOMI Neck: no adenopathy Respiratory/Chest: lungs clear Cardiovascular: regular rate, rhythm Abdomen/GI: normal bowel sounds, non tender, soft Extremities/Musculoskelatal: no calf tenderness, no pedal edema Neurologic/Psych: alert, oriented x 3 Family History Diabetes mellitus Heart disease Hypertension Kidney disease Kidney stones Lung disease Social History Smoking Status: Current every day smoker Marital Status: Occupation: employed Laboratory Results Past 24 Hours 09/10/16 05:30 Red Blood Count 2.94, Mean Corpuscular Volume 88.1, Mean Corpuscular Hemoglobin 32.0, Mean Corpuscular Hemoglobin Concent 36.3, Mean Platelet Volume 8.9, Neutrophils (%) (Auto) 42.5, Lymphocytes (%) (Auto) 42.9, Monocytes (%) (Auto) 13.0, Eosinophils (%) (Auto) 0.8, Basophils (%) (Auto) 0.4, Neutrophils # (Auto ) 1.11, Lymphocytes # (Auto) 1.12, Monocytes # (Auto) 0.34, Eosinophils # (Auto ) 0.02, Basophils # (Auto) 0.01 09/10/16 05:30 Test 09/09/16 11:30 09/10/16 05:30 White Blood Count 2.61 K/uL (4.8-10.8) Red Blood Count 2.94 M/uL (4.2-5.4) Hemoglobin 9.4 g/dL (12.0-16.0) Hematocrit 25.9 % (37-47) Mean Corpuscular Volume 88.1 fL (80-100) Mean Corpuscular Hemoglobin 32.0 pg (25-34) Mean Corpuscular Hemoglobin Concent 36.3 g/dl (32-36) Platelet Count 167 K/uL (130-400) Mean Platelet Volume 8.9 fL (7.4-10.4) Neutrophils (%) (Auto) 42.5 % Lymphocytes (%) (Auto) 42.9 % Monocytes (%) (Auto) 13.0 % Eosinophils (%) (Auto) 0.8 % Basophils (%) (Auto) 0.4 % Neutrophils # (Auto) 1.11 K/uL (1.4-6.5) Lymphocytes # (Auto) 1.12 K/uL (1.2-3.4) Monocytes # (Auto) 0.34 K/uL (0.11-0.59) Eosinophils # (Auto) 0.02 K/uL (0-0.5) Basophils # (Auto) 0.01 K/uL (0-0.2) RDW Standard Deviation 46.0 fL (36.4-46.3) RDW Coefficient of Variation 14.9 % (11.5-14.5) Immature Granulocyte % (Auto) 0.4 % Immature Granulocyte # (Auto) 0.01 K/uL (0.00-0.02) Anion Gap 5.0 mmol/L (3-11) Est Creatinine Clear Calc Drug Dose 80.0 ml/min Estimated GFR () 120.1 Estimated GFR (Non- 103.6 BUN/Creatinine Ratio 13.8 (10-20) Calcium Level 8.4 mg/dl (8.5-10.1) Phosphorus Level 1.8 mg/dl (2.5-4.9) Magnesium Level 1.8 mg/dl (1.8-2.4) Date/Time Source Procedure Growth Status 09/09/16 11:30 Stool C.difficile Toxin B Gene (PCR) - Final Complete Allergies Coded Allergies: Morphine (Verified Allergy, Intermediate, HIVES, HAS HAD CODEINE W/O PROBLEM, 09/06/16) HIVES, HAS HAD CODEINE W/O PROBLEM HAS ALSO TOLERATED TRAMADOL Hydralazine (Verified Allergy, Unknown, HIVES, 09/06/16) Uncoded Allergies: NITRATES (Adverse Reaction, Unknown, MIRAINES, 05/10/15) Medications Current Inpatient Medications Medications (Trade) Dose Ordered Sig/Jose G Route Start Time Stop Time Status Last Admin Dose Admin Sodium Chloride 1,000 ml @ 100 mls/hr Q10H IV 09/06/16 21:15 10/06/16 21:14 09/10/16 05:44 100 MLS/HR Ondansetron HCl (Zofran Inj) 4 mg Q6H PRN IV 09/06/16 21:15 10/06/16 21:14 09/09/16 17:35 4 MG Azathioprine (Imuran Tab) 100 mg QAM PO 09/07/16 09:00 10/07/16 08:59 09/10/16 08:34 100 MG Cetirizine HCl (zyrTEC TAB) 10 mg QAM PO 09/07/16 09:00 10/07/16 08:59 09/10/16 08:26 10 MG Famotidine (Pepcid Tab) 20 mg BID PO 09/07/16 08:00 10/07/16 07:59 09/10/16 08:29 20 MG Cyclosporine (Sandimmune Cap) 200 mg BID PO 09/07/16 09:00 10/07/16 08:59 09/10/16 08:27 200 MG Fexofenadine HCl (Earnestine Tab) 180 mg QAM PO 09/07/16 09:00 10/07/16 08:59 09/10/16 08:23 180 MG Fluticasone Propionate (Flonase Nasal [place]) 1 sprays HS JOEL 09/07/16 22:00 10/07/16 21:59 09/09/16 21:29 1 SPRAYS Lorazepam (Ativan Tab) 1 mg TID PRN PO 09/06/16 22:15 10/06/16 22:14 09/09/16 16:36 1 MG Multivitamins (Multivitamin Tab) 1 tab QAM PO 09/07/16 09:00 10/07/16 08:59 09/10/16 08:34 1 TAB Verapamil HCl (Calan-Sr Tab) 240 mg BID PO 09/07/16 09:00 10/07/16 08:59 09/10/16 08:25 240 MG Polyethylene (Miralax Powder Packet) 17 gm QAM PO 09/07/16 08:00 10/07/16 07:59 Mirtazapine (Remeron Tab) 30 mg HS PRN PO 09/06/16 22:15 10/06/16 22:14 09/10/16 00:09 30 MG Oxcarbazepine (Trileptal Tab) 300 mg BID PO 09/07/16 09:00 10/07/16 08:59 09/10/16 08:29 300 MG Acetaminophen 650 mg/Empty Bag 65 ml @ 260 mls/hr Q6H PRN IV 09/06/16 22:15 10/06/16 22:14 09/08/16 14:00 260 MLS/HR Senna/Docusate Sodium (Senokot S Tab) 2 tab BID PO 09/07/16 09:00 10/07/16 08:59 09/10/16 08:32 2 TAB Acetaminophen (Tylenol Tab) 650 mg Q4H PRN PO 09/06/16 22:45 10/06/16 22:44 Hydromorphone HCl (Dilaudid Inj) 0.5 mg Q12H PRN IV 09/06/16 23:00 09/20/16 22:14 09/10/16 10:33 0.5 MG Promethazine HCl 12.5 mg/Sodium Chloride 50.5 ml @ 204 mls/hr Q6H PRN IV 09/07/16 00:00 10/07/16 00:00 09/08/16 18:27 204 MLS/HR Lubiprostone (Amitiza) 24 mcg BID PO 09/07/16 00:30 10/07/16 00:29 09/10/16 08:25 24 MCG Nicotine (Nicoderm Cq 7 Mg Patch) 1 patch QAM TD 09/07/16 08:00 10/07/16 07:59 Miscellaneous (Remove Nicoderm Patch) 1 ea HS N/A 09/07/16 07:59 10/07/16 07:58 Prednisone (PredniSONE TAB) 2.5 mg DAILY PO 09/07/16 08:00 10/07/16 07:59 09/10/16 08:28 2.5 MG Pantoprazole Sodium (Protonix Tab) 40 mg BID PO 09/07/16 08:00 10/07/16 07:59 09/10/16 08:26 40 MG Simvastatin (Zocor Tab) 5 mg QPM PO 09/07/16 21:00 10/07/16 20:59 09/09/16 21:29 5 MG Oxycodone/ Acetaminophen (Percocet 5-325mg Tab) pain not relieved by tyle... Q6H PRN PO 09/07/16 08:00 09/20/16 22:44 09/10/16 08:22 2 TAB Diclofenac Sodium (Voltaren 1% Top Gel) 1 appln TID EXT 09/07/16 14:00 10/07/16 13:59 09/10/16 08:35 1 APPLN Non-Formulary Medication (Non-Formulary Patient'S Own Med) 1 ea DAILY PO 09/08/16 08:00 10/08/16 07:59 09/09/16 09:12 1 EA Non-Formulary Medication (Non-Formulary Patient'S Own Med) 1 ea Taper 5XDQ4H OP 09/07/16 19:00 09/21/16 18:59 09/10/16 10:34 1 EA Folic Acid (Folvite Tab) 1 mg QAM PO 09/08/16 08:00 10/08/16 07:59 09/10/16 08:28 1 MG Buspirone HCl (Buspar Tab) 5 mg BID PO 09/07/16 20:00 10/07/16 19:59 09/10/16 08:26 5 MG Oxymorphone HCl (Opana Er) 20 mg BID@0600,2200 PO 09/08/16 22:00 09/15/16 06:01 09/10/16 05:45 20 MG Oxymorphone HCl (Opana Er (Crush Resistant) 15 mg DAILY@1400 PO 09/08/16 15:30 09/14/16 14:01 09/09/16 14:00 15 MG Non-Formulary Medication (Patient'S Own Controlled Med) 1 ea BID@0600,2200 PO 09/08/16 22:00 09/15/16 06:01 09/09/16 22:27 1 EA Non-Formulary Medication (Patient'S Own Controlled Med) 1 ea DAILY@1400 PO 09/08/16 15:30 09/14/16 14:01 09/09/16 14:00 1 EA Baclofen (Lioresal Tab) 10 mg TID PO 09/09/16 14:00 10/07/16 07:59 09/10/16 08:34 10 MG Lisinopril (Zestril Tab) 20 mg BID PO 09/09/16 20:00 10/09/16 19:59 09/10/16 08:26 20 MG Zolpidem Tartrate (Ambien Tab) 10 mg HS PRN PO 09/10/16 02:15 10/10/16 02:14 09/10/16 02:39 10 MG Potassium Phosphate 30 mmol/ Sodium Chloride 510 ml @ 88 mls/hr TODAY@1000 ONCE IV 09/10/16 10:00 09/10/16 15:47 09/10/16 10:29 88 MLS/HR Impression (1) ARF (acute renal failure) (2) Anemia (3) Herpes zoster (4) GERD (gastroesophageal reflux disease) Marci Is a 45-year-old female status 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 She developed acute kidney injury in the setting of them nausea, vomiting, volume depletion after started on Valtrex for left eye herpes simplex infection. Admitted yesterday and started on IV hydration, clinically significantly improved. Still has nausea but vomiting resolved. Creatinine on admission was 1.9 which improved to 1.2 this morning which seems to be her baseline. She has been tolerating her immunosuppressant medication through her acute illness over last few days. 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 On admission hemoglobin was 7.2, received 1 unit of blood transfusion and hemoglobin improved to 8.8 EGD and colonoscopy in 2016 was otherwise unremarkable except gastritis, currently on Protonix. She denies any episode of GI bleeding recently. Currently acute kidney injury resolved creatinine 0.7 other electrolyte acceptable, blood pressure acceptable. Recommendations -- Strength has improved. Patient is now able to maintain adequate oral hydration. Will d/c IVF. -- DESIREE has resolved. Will continue to monitor kidney function -- Continue Cyclosporine 200 twice a day, Imuran 100 daily and Prednisone 2.5 daily -- Hematology recommends outpatient evaluation to possibly resume Rituximab therapy following discharge from the hospital -- Recommend physical therapy evaluation for strengthening and ambulation
--- NOTE | 2016-09-10 12:06 | Progress Note ---
Internal Med Progress Note Date of Service: Sep 10, 2016. Provider Documentation: SUBJECTIVE: The patient was seen and examined Symptoms started following the use of Valtrex prescribed by the Screw Remover Generally weak and lethargic-improved Has been taking DOUBLE the dose of Trileptal for the last ~1-2 months-she admitted this today Much better clinically Ambulating and considering going home this afternoon OBJECTIVE: Vital Signs-as noted below Exam: General-no distress at rest Eyes-normal ENT-normal Neck-supple Lungs-Clear to ausucltate bilaterally Heart-Regular,no murmur Abdomen-Benign.Enlarged spleen Extremities-No edema Neuro-AAOx3 NO focal neuro deficit Lab data as noted below. ASSESSMENT & PLAN: ARF likely prerenal 2 to nausea/emesis symptoms Multifactorial : Acyclovir intolerance, history shingles status post Rx, Narcotic induced constipation History MPGN status post renal transplant on chronic immunosuppression H/O Gastroparesis as per px Hold ACEI until renal function normalizes-restarted on 09/09/16 Received IVF and advised increased oral intake Nephrology evaluation-appreciate input Renal function is normalized Continue current treatment Low Phosphate-replaced Accidental Overdose of Trileptal Has been taking double the dose of Trileptal for the last ~1-2 months Her recent symptomatology may be related to increasing dose of Trileptal Back to her Usual dose since admission No change of her management now irrespective of the level of Trileptal Will not send for the level Clinically a lot better today Chronic pain on narcotics (plan for outpatient wean as per outpx PCP notes) Judicious narcotic use Hold [id number] narcotics, neuro-psychotropics for for sedation confusion ( May need dose adjustment for renal function) (px currently agreeable to holding her Opana inpx- refusing available Oxycontin substitute) Will not make any change in her current pain medications-continue exactly the way these were prescribed as an OP Will not change any schedule of her helio n medications 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 rule out occult bleed, progression of anemia over the last few months Received 2 unit PRBC during this admission Appreciate Hematology input Folate added Rituximab therapy as an OP Herpes Zoster Ophthalmicus Was on Valtrex-on hold due to current symptoms Continue topical Rx prescribed by body mechanic for shingles hx DVT sp tx ongoing tobacco abuse SPN on CT Tobacco abuse Nicotine patch outpx ffup surveillance CT chest study for SPN DVT prophylaxis SCDs RE anemia Full code Increase ambulation Weakness is improved Likely to go home this evening Vital Signs: Date Time Temp Pulse Resp B/P (MAP) Pulse Ox O2 Delivery O2 Flow Rate FiO2 09/10/16 08:00 Room Air 09/10/16 07:56 36.9 84 16 142/79 (100) 97 Room Air 09/10/16 00:00 Room Air 09/09/16 23:55 37.6 91 20 135/79 (97) 97 Room Air 09/09/16 16:00 98 Room Air 09/09/16 15:20 36.7 77 20 155/81 (105) 98 Room Air Lab Results: Results Past 24 Hours Test 09/10/16 05:30 Range/Units White Blood Count 2.61 4.8-10.8 K/uL Red Blood Count 2.94 4.2-5.4 M/uL Hemoglobin 9.4 12.0-16.0 g/dL Hematocrit 25.9 37-47 % Mean Corpuscular Volume 88.1 80-100 fL Mean Corpuscular Hemoglobin 32.0 25-34 pg Mean Corpuscular Hemoglobin Concent 36.3 32-36 g/dl Platelet Count 167 130-400 K/uL Mean Platelet Volume 8.9 7.4-10.4 fL Neutrophils (%) (Auto) 42.5 % Lymphocytes (%) (Auto) 42.9 % Monocytes (%) (Auto) 13.0 % Eosinophils (%) (Auto) 0.8 % Basophils (%) (Auto) 0.4 % Neutrophils # (Auto) 1.11 1.4-6.5 K/uL Lymphocytes # (Auto) 1.12 1.2-3.4 K/uL Monocytes # (Auto) 0.34 0.11-0.59 K/uL Eosinophils # (Auto) 0.02 0-0.5 K/uL Basophils # (Auto) 0.01 0-0.2 K/uL RDW Standard Deviation 46.0 36.4-46.3 fL RDW Coefficient of Variation 14.9 11.5-14.5 % Immature Granulocyte % (Auto) 0.4 % Immature Granulocyte # (Auto) 0.01 0.00-0.02 K/uL Sodium Level 139 136-145 mmol/L Potassium Level 3.7 3.5-5.1 mmol/L Chloride Level 107 98-107 mmol/L Carbon Dioxide Level 27 21-32 mmol/L Anion Gap 5.0 3-11 mmol/L Blood Urea Nitrogen 10 7-18 mg/dl Creatinine 0.71 0.60-1.20 mg/dl Est Creatinine Clear Calc Drug Dose 80.0 ml/min Estimated GFR () 120.1 Estimated GFR (Non- 103.6 BUN/Creatinine Ratio 13.8 10-20 Random Glucose 87 70-99 mg/dl Calcium Level 8.4 8.5-10.1 mg/dl Phosphorus Level 1.8 2.5-4.9 mg/dl Magnesium Level 1.8 1.8-2.4 mg/dl
[2016-09-10 14:33] LABS: URINE APPEARANCE CLEAR (CLEAR); URINE BILIRUBIN NEG (NEG); URINE COLOR DK YELLOW; URINE NITRITE NEG (NEG); URINE SPECIFIC GRAVITY 1.011 (1.000-1.030); UROBILINOGEN POS (NEG); ZZUR CULT IF INDIC CLEAN CATCH NO
[2016-09-10 14:38] LABS: MANUAL MICROSCOPIC REQUIRED? NO; REVIEW REQ? NO
[2016-09-10] MEDS: OXYMORPHONE PO SCH (14:53)
[2016-09-10] MEDS: OXYMORPHONE HCL 15 MG PO SCH (14:53)
[2016-09-10 15:55] VITALS: BP 130/76; PULSE 85; TEMP 36.8; O2SAT 97
--- NOTE | 2016-09-10 15:59 | Discharge Instructions ---
Discharge Instructions Date of Service Sep 10, 2016. Admission Reason for Admission: Arf (Acute Renal Failure) Discharge Discharge Diagnosis / Problem: DESIREE,Generalized weakness ,Nausea and Vomiting, Anemia s/p 2Unit of PRBC Discharge Goals Goal(s): Prevent Disease Progression Activity Recommendations Activity Limitations: resume your previous activity . Instructions / Follow-Up Instructions / Follow-Up Her PCP's office will call for appointment.Please keep regulr follow up with Hematology,Nephrology and Neurology Current Hospital Diet Patient's current hospital diet: AHA Diet (Heart Healthy) Discharge Diet Recommended Diet: AHA Diet (Heart Healthy) Pending Studies Studies pending at discharge: yes List of pending studies: Cold Agglotinin and Giardia antigen. Medical Emergencies . Who to Call and When: Medical Emergencies: If at any time you feel your situation is an emergency, please call 911 immediately. . Non-Emergent Contact Non-Emergency issues call your: Primary Care Provider . Past History Medical & Surgical History: (1) ARF (acute renal failure) (2) Nausea & vomiting (3) Lumbar strain (4) Anemia (5) SOB (shortness of breath) (6) Gastroparesis (7) Hypertension (8) Renal transplant, status post . "Provider Documentation" section prepared by Ronald Alcaraz. . VTE Core Measure Inpt VTE Proph given/why not?: SCD's
[2016-09-10 16:16] VITALS: BP 130/76; PULSE 85; TEMP 36.8; O2SAT 97
[2016-09-10] MEDS ORDERED: OXCARBAZEPINE 150 MG TAB PO SCH (20:00)
--- NOTE | 2016-09-11 07:31 | Discharge Summary ---
Discharge Summary Date of Service Sep 11, 2016. Discharge Summary Admission Date: Sep 06, 2016 at 21:50 Discharge Date: Sep 10, 2016 Discharge Disposition: Home Principal Diagnosis: DESIREE,Generalized weakness ,Nausea and Vomiting,Anemia s/p 2Unit of PRBC Secondary Diagnoses/Problems: Please see H&P and Hospital Progress note Consultations: Nephrology,Hematology Admission Information HPI (per Admitting provider): Last week patient found to have shingles of the left eye face. Prescribed oral Acyclovir course. Patient noted nausea emesis after intake of medication. Left-sided headache achy different from migraine. Minimal upper abdominal discomfort. No bowel movement for a week No chest pain no shortness of breath. Seen at urgent care center a few days ago. Given IV fluids and prescribed antiemetics Follow-up with local customer equipment engineer yesterday. Patient told to stop Acyclovir. Topical antiviral prescribed for left eye. Patient consulted the emergency room for intractable symptoms and abnormal kidney function Outpatient creatinine was 2.1. 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) Multi-Drug Resistant Organisms History of MDRO: No Allergies Coded Allergies: Morphine (Verified Allergy, Intermediate, HIVES, HAS HAD CODEINE W/O PROBLEM, 09/06/16) HIVES, HAS HAD CODEINE W/O PROBLEM HAS ALSO TOLERATED TRAMADOL Hydralazine (Verified Allergy, Unknown, HIVES, 09/06/16) Uncoded Allergies: NITRATES (Adverse Reaction, Unknown, MIRAINES, 05/10/15) Home Medications Scheduled Ascorbic Acid (Ascorbic Acid), 500 MG PO BID Azathioprine (Imuran), 100 MG PO QAM Baclofen (Baclofen), 1 TAB PO TID Biotin (Biotin), 10,000 MCG PO QAM Control Pills ( Control Pills), 1 TAB PO QAM Buspirone Hcl (Buspar), 5 MG PO BID Calcium Carbonate-Vitamin D (Calcium 500 + D), 1 TAB PO BID Cetirizine (Zyrtec), 10 MG PO QAM Cholecalciferol (Vitamin D3), 1 CAP PO QAM Cimetidine (Tagamet), 1 TAB PO BID Cyclosporine (Cyclosporine), 200 MG PO BID Diclofenac Sodium (Topical) (Diclofenac Sodium), 1 DOSE TOP DAILY Docusate Sodium (Colace), 1 CAP PO BID Fexofenadine Hcl (Earnestine Allergy), 1 TAB PO QAM Fluticasone Propionate (Nasal) (Flonase Allergy Relief), 1 SPRAY JOEL HS Uhiiglanuuf-Dwlcimpsfgw-Esk C- (Glucosamine Chondroitin), 1 TAB PO BID Linaclotide (Linzess), 1 TAB PO HS Lisinopril (Zestril), 20 MG PO BID Melatonin (Melatonin), 15 MG PO HS Methylcellulose (Laxative) (Citrucel), 2-4 TABS PO HS Mirtazapine (Remeron), 1 TAB PO HS Multivitamin (Multivitamin), 1 TAB PO QAM Ofloxacin (Oph) (Ocuflox Oph Soln), 1 DROP OPB DAILY [place]-3 Fatty Acids (Fish Oil 1200 mg), 2 CAP PO HS Oxcarbazepine (Trileptal), 0.5 TAB PO BID Oxycodone Hcl (Oxycodone Hcl), 1 TAB PO QID Oxymorphone Hcl (Opana Er (Crush Resistant), 1 TAB PO TID Pantoprazole (Protonix), 40 MG PO BID Polyethylene Glycol 3350 (Miralax), 17 GM PO DAILY Prednisone (Prednisone), 2.5 MG PO QAM Simvastatin (Zocor), 5 MG PO QPM Verapamil Sust Rel (Calan Sr Ext Rel), 240 MG PO BID Vitamin E (E-400), 1 CAP PO QAM Zolpidem Tartrate (Ambien), 10 MG PO HS Scheduled PRN Acetaminophen (Tylenol), 1,000 MG PO PRN PRN for Pain Lorazepam (Ativan), 1 MG PO TID PRN for Anxiety Ondansetron Hcl (Zofran), 4 MG PO tidprn PRN for Nausea Rizatriptan Benzoate (Maxalt), 10 MG PO PRN PRN for Headache Sumatriptan Succinate (Imitrex), 100 MG PO UD PRN for Headache Review of Systems as per HPI, all other ROS negative Physical Ex - H&P Physical Exam Vital Signs Date Time Temp Pulse Resp B/P (MAP) Pulse Ox O2 Delivery O2 Flow Rate FiO2 09/07/16 00:50 37.1 68 20 133/70 98 09/06/16 22:43 37.2 75 16 143/74 Room Air 09/06/16 22:29 37.2 75 16 143/74 (97) 98 Room Air 09/06/16 21:53 68 18 126/76 98 Room Air 09/06/16 21:12 72 16 144/79 97 Room Air 09/06/16 19:09 72 16 143/77 97 Room Air 09/06/16 18:03 73 14 125/66 97 Room Air 09/06/16 17:48 96 Room Air 09/06/16 16:50 36.8 79 16 137/78 98 Room Air General Appearance: + pertinent finding (lethargic) Head: normocephalic Eyes: + pertinent finding (rash left left upper face) Neck: supple Respiratory/Chest: + pertinent finding (occasional wheeze) Cardiovascular: regular rate, rhythm Abdomen/GI: + distended Extremities/Musculoskelatal: non-tender Neurologic/Psych: + pertinent finding (lethargic) Skin: + pallor Diagnostics - H&P Diagnostics Laboratory Results Results Past 24 Hours Test 09/06/16 18:00 09/06/16 19:05 09/06/16 23:10 Range/Units White Blood Count 3.28 4.8-10.8 K/uL Red Blood Count 2.56 4.2-5.4 M/uL Hemoglobin 8.4 7.2 12.0-16.0 g/dL Hematocrit 22.8 19.5 37-47 % Mean Corpuscular Volume 89.1 80-100 fL Mean Corpuscular Hemoglobin 32.8 25-34 pg Mean Corpuscular Hemoglobin Concent 36.8 32-36 g/dl Platelet Count 173 130-400 K/uL Mean Platelet Volume 8.8 7.4-10.4 fL Neutrophils (%) (Auto) 62.2 % Lymphocytes (%) (Auto) 29.6 % Monocytes (%) (Auto) 7.0 % Eosinophils (%) (Auto) 0.3 % Basophils (%) (Auto) 0.3 % Neutrophils # (Auto) 2.04 1.4-6.5 K/uL Lymphocytes # (Auto) 0.97 1.2-3.4 K/uL Monocytes # (Auto) 0.23 0.11-0.59 K/uL Eosinophils # (Auto) 0.01 0-0.5 K/uL Basophils # (Auto) 0.01 0-0.2 K/uL RDW Standard Deviation 48.7 36.4-46.3 fL RDW Coefficient of Variation 15.3 11.5-14.5 % Immature Granulocyte % (Auto) 0.6 % Immature Granulocyte # (Auto) 0.02 0.00-0.02 K/uL Ovalocytes 1+ Prothrombin Time 11.6 9.0-12.0 SECONDS Prothromb Time International Ratio 1.1 0.9-1.1 Activated Partial Thromboplast Time 19.6 21.0-31.0 SECONDS Partial Thromboplastin Ratio 0.8 Sodium Level 136 136-145 mmol/L Potassium Level 3.9 3.5-5.1 mmol/L Chloride Level 104 98-107 mmol/L Carbon Dioxide Level 24 21-32 mmol/L Anion Gap 8.0 3-11 mmol/L Blood Urea Nitrogen 44 7-18 mg/dl Creatinine 1.90 0.60-1.20 mg/dl Est Creatinine Clear Calc Drug Dose 29.9 ml/min Estimated GFR () 36.5 Estimated GFR (Non- 31.5 BUN/Creatinine Ratio 23.4 10-20 Random Glucose 127 70-99 mg/dl Calcium Level 9.0 8.5-10.1 mg/dl Magnesium Level 2.5 1.8-2.4 mg/dl Total Bilirubin 1.0 0.2-1 mg/dl Direct Bilirubin 0.4 0-0.2 mg/dl Aspartate Amino Transf (AST/SGOT) 37 15-37 U/L Alanine Aminotransferase (ALT/SGPT) 32 12-78 U/L Alkaline Phosphatase 80 45-117 U/L Troponin I < 0.015 0-0.045 ng/ml Total Protein 7.5 6.4-8.2 gm/dl Albumin 4.1 3.4-5.0 gm/dl Lipase 116 73-393 U/L Thyroid Stimulating Hormone (TSH) 0.677 0.300-4.500 uIu/ml Human Chorionic Gonadotropin, Qual NEG NEG Urine Color YELLOW Urine Appearance CLEAR CLEAR Urine pH 5.5 4.5-7.5 Urine Specific [place] 1.014 1.000-1.030 Urine Protein TRACE NEG Urine Glucose (UA) NEG NEG Urine Ketones NEG NEG Urine Occult Blood NEG NEG Urine Nitrite NEG NEG Urine Bilirubin NEG NEG Urine Urobilinogen NEG NEG Urine Leukocyte Esterase NEG NEG Urine WBC (Auto) 0 0-5 /hpf Urine RBC (Auto) 0-4 0-4 /hpf Urine Hyaline Casts (Auto) 0 0-5 /lpf Urine Epithelial Cells (Auto) 0-5 0-5 /lpf Urine Bacteria (Auto) NEG NEG Urine Opiates Screen POS NEG Urine Methadone, Qualitative NEG NEG Urine Barbiturates NEG NEG Urine Phencyclidine (PCP) Level NEG NEG Ur Amphetamine/Methamphetamine NEG NEG MDMA (Ecstasy) Screen POS NEG Urine Benzodiazepines Screen NEG NEG Urine Cocaine Metabolite NEG NEG Urine Marijuana (THC) NEG NEG Absolute Reticulocyte Count 0.05 0.02-0.10 10^6/uL Percent Reticulocyte Count 2.2 0.5-2.0 % Iron Level 78 35-150 mcg/dl Total Iron Binding Capacity 165 250-450 mcg/dl Transferrin 132 200-360 mg/dl Transferrin % Saturation 42 15-50 % Ferritin 1142.7 8.0-388.0 ng/ml Vitamin B12 Level 1234 211-911 pg/mL Folate 22.36 >5.38 ng/mL Microbiology Results 09/06/16 Urine Culture, Received Pending Diagnostic Radiology CT head no acute pathology CT abdomen and pelvis chronic pancreatic calcifications splenomegaly, severe constipation, pulmonary nodule right Impression - H&P Impression Assessment and Plan AP ARF likely prerenal 2 to nausea/emesis symptoms Multifactorial : ? 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 Baron ) Bowel regimen, continue Linzess Judicious narcotic use Hold ktstq-pxi-vmsel narcotics, neuro-psychotropics for for sedation confusion ( May need dose adjustment for renal function) (px currently agreeable to holding her Opana inpx- refusing available Oxycontin substitute) Anemia workup, transfuse pRBC if hemoglobin less than 7 and/or for symptomatic anemia Continue topical Rx prescribed by customer equipment engineer for shingles Nicotine patch outpx ffup surveillance CT chest study for SPN DVT prophylaxis SCDs RE anemia Full code Advanced Directives Existing Living Will: No Existing Power of Ibm Bpm Architect: No VTE Prophylaxis VTE Risk Assessment Done? 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 H/O Gastroparesis as per px Hold ACEI until renal function normalizes-restarted on 09/09/16 Received IVF and advised increased oral intake Nephrology evaluation-appreciate input Renal function is normalized Continue current treatment Low Phosphate-replaced Accidental Overdose of Trileptal Has been taking double the dose of Trileptal for the last ~1-2 months Her recent symptomatology may be related to increasing dose of Trileptal Back to her Usual dose since admission No change of her management now irrespective of the level of Trileptal Will not send for the level Clinically a lot better today Chronic pain on narcotics (plan for outpatient wean as per outpx PCP notes) Judicious narcotic use Hold boflc-vgx-pkyih narcotics, neuro-psychotropics for for sedation confusion ( May need dose adjustment for renal function) (px currently agreeable to holding her Opana inpx- refusing available Oxycontin substitute) Will not make any change in her current pain medications-continue exactly the way these were prescribed as an OP Will not change any schedule of her helio n medications 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 rule out occult bleed, progression of anemia over the last few months Received 2 unit PRBC during this admission Appreciate Hematology input Folate added Rituximab therapy as an OP Herpes Zoster Ophthalmicus Was on Valtrex-on hold due to current symptoms Continue topical Rx prescribed by customer equipment engineer for shingles hx DVT sp tx ongoing tobacco abuse SPN on CT Tobacco abuse Nicotine patch outpx ffup surveillance CT chest study for SPN DVT prophylaxis SCDs RE anemia Full code Increase ambulation Weakness is improved Likely to go home this evening Total time spent on discharge = This includes examination of the patient, discharge planning, medication reconciliation, and communication with other providers. Discharge Instructions Date of Service Sep 10, 2016. Admission Reason for Admission: Arf (Acute Renal Failure) Discharge Discharge Diagnosis / Problem: DESIREE,Generalized weakness ,Nausea and Vomiting, Anemia s/p 2Unit of PRBC Discharge Goals Goal(s): Prevent Disease Progression Activity Recommendations Activity Limitations: resume your previous activity . Instructions / Follow-Up Instructions / Follow-Up Her PCP's office will call for appointment.Please keep regulr follow up with Hematology,Nephrology and Neurology Current Hospital Diet Patient's current hospital diet: AHA Diet (Heart Healthy) Discharge Diet Recommended Diet: AHA Diet (Heart Healthy) Pending Studies Studies pending at discharge: yes List of pending studies: Cold Agglotinin and Giardia antigen. Medical Emergencies . Who to Call and When: Medical Emergencies: If at any time you feel your situation is an emergency, please call 911 immediately. . Non-Emergent Contact Non-Emergency issues call your: Primary Care Provider . Past History Medical & Surgical History: (1) ARF (acute renal failure) (2) Nausea & vomiting (3) Lumbar strain (4) Anemia (5) SOB (shortness of breath) (6) Gastroparesis (7) Hypertension (8) Renal transplant, status post . "Provider Documentation" section prepared by Ronald Alcaraz. . VTE Core Measure Inpt VTE Proph given/why not?: SCD's <Electronically signed by Ronald Alcaraz M.D.> Signed: 09/10/16 3101 Additional Copies To Stuart Ravi M.D.
[2016-09-11 12:34] LABS: COD UR NEGATIVE NG/ML (CUTOFF=50); HYDROCOD UR NEGATIVE NG/ML (CUTOFF=50); HYDROMOR UR NEGATIVE NG/ML (CUTOFF=50); MORPHINE UR NEGATIVE NG/ML (CUTOFF=50); NORHYDROCODONE CONF UR NEGATIVE NG/ML (CUTOFF=50); OXYMORPH UR 9610 NG/ML (CUTOFF=50)
[2016-09-13 14:57] LABS: O&P GIARDIA AG NOT DETECTED (NOT DETECTED)
[2016-10-22] MEDS ORDERED: AMX500 PO (16:57)
== END 2016-09-10 17:47 | disposition home or self-care (01) | DRG 809 ==
LOC: C.EDB 16:45 → C.MS4W 21:50 → EEVIPCON 21:50 → ENRESERV 21:57
PROVIDERS: ADMIT Internal Medicine; ATTEND Internal Medicine
DX: D59.1 Other autoimmune hemolytic anemias (principal); N17.9 Acute kidney failure, unspecified; Z94.0 Kidney transplant status; B02.39 Other herpes zoster eye disease; N05.2 Unspecified nephritic syndrome with diffuse membranous glomerulonephritis; T42.6X1A Poisoning by other antiepileptic and sedative-hypnotic drugs, accidental (unintentional), initial encounter; R11.2 Nausea with vomiting, unspecified; R53.1 Weakness; K59.03 Drug induced constipation; T37.5X5A Adverse effect of antiviral drugs, initial encounter; D50.0 Iron deficiency anemia secondary to blood loss (chronic); E86.0 Dehydration; G89.29 Other chronic pain; I10 Essential (primary) hypertension; K31.84 Gastroparesis; K21.9 Gastro-esophageal reflux disease without esophagitis; E78.5 Hyperlipidemia, unspecified; F17.200 Nicotine dependence, unspecified, uncomplicated; Z79.899 Other long term (current) drug therapy; Z79.52 Long term (current) use of systemic steroids; Z98.84 Bariatric surgery status; Z83.3 Family history of diabetes mellitus; Z84.1 Family history of disorders of kidney and ureter; Z82.49 Family history of ischemic heart disease and other diseases of the circulatory system

== ENCOUNTER 2016-10-20 16:16 | Observation (INO) | payer OTHER ==
[~2016-10-20] VITALS: Ht 154.9 cm; Wt 50.0 kg
[~2016-10-20 16:16] MED LIST changes: -AMB10 PO; -ASCA500 PO; +ASCO500T16 PO; +CIME-56 PO; -CLC100 PO; +DICL1GEL34 TOP; +DOCU-94 PO; -FLNIN NAE; +FLUT0.15 NAE; -LABE100T16 PO; +LISI-725 PO; -LRS10 PO; +LRS20 PO; -MIRT15TA PO; +MIRT45TA PO; -MRLP17 PO; +OFLO0.3S4 OPB; -OMEG-27 PO; +OMEG5CAP PO; -OXCA300T2 PO; -OXCA300T4 PO; +OXCA600T2 PO; +OXY/15 PO; -OXYC-164 PO; +POLY335019 PO; -VALA1TAB2 PO; -ZNTT/150 PO; +ZOLP10TA PO
[2016-10-20 17:55] LABS: ALT/SGPT 17 U/L (12-78); AST/SGOT 12 U/L (15-37); BLOOD UREA NITROGEN 15 mg/dl (7-18); BUN/CREATININE RATIO 15.1 (10-20); CALCIUM 8.6 mg/dl (8.5-10.1); CARBON DIOXIDE 28 mmol/L (21-32); CHLORIDE 96 mmol/L (98-107); GLUCOSE 98 mg/dl (70-99); HEMATOCRIT 17.7 % (37-47); MEAN CELL VOLUME 93.2 fL (80-100); MEAN CORPUSCULAR HEMOGLOBIN 34.2 pg (25-34); MEAN CORPUSCULAR HGB CONC 36.7 g/dl (32-36); MEAN PLATELET VOLUME 8.6 fL (7.4-10.4); PLATELET COUNT 247 K/uL (130-400); POTASSIUM 3.9 mmol/L (3.5-5.1); SODIUM 130 mmol/L (136-145); WHITE BLOOD COUNT 3.37 K/uL (4.8-10.8)
[2016-10-20 17:58] LABS: ALB/GLOB RATIO 1.4 (0.9-2); ALKALINE PHOSPHATASE 63 U/L (45-117); TOTAL IRON BINDING CAPACITY 205 mcg/dl (250-450)
[2016-10-20 18:14] LABS: BASO % 0.9 %; BASO ABS # 0.03 K/uL (0-0.2); COMPLETE YES; EOS % 0.3 %; IG% 0.3 %; LARGE PLATELETS 1+; LYMPH % 34.7 %; LYMPH ABS # 1.17 K/uL (1.2-3.4); MONO % 10.7 %; NEUT % 53.1 %; POIKILOCYTOSIS PRESENT
[2016-10-20] MEDS ORDERED: [UNRECOGNIZED DRUG - CODE] PO (18:44)
[2016-10-20] MEDS ORDERED: DIPH1TAB PO (18:44)
[2016-10-20] MEDS ORDERED: BUSP5TAB59 PO (18:44)
[2016-10-20] MEDS ORDERED: AMT24 PO (18:44)
[2016-10-20] MEDS ORDERED: FLV1 PO (18:44)
[2016-10-20] MEDS ORDERED: OXYM1TAB PO (18:44)
[2016-10-20] MEDS ORDERED: NORETAB25 PO (18:44)
[2016-10-20] MEDS ORDERED: LORAZEPAM 1 MG TAB PO PRN (18:45)
[2016-10-20] MEDS ORDERED: RIZATRIPTAN BENZOATE 10 MG TAB PO PRN (18:45)
[2016-10-20] MEDS ORDERED: SUMATRIPTAN SUCC TAB 100 MG TAB PO PRN (18:45)
[2016-10-20] MEDS ORDERED: ZOLPIDEM TARTRATE 10 MG TAB PO PRN (19:00)
[2016-10-20] MEDS ORDERED: IV FLUIDS COMPLETED PRN (19:30)
[2016-10-20 19:33] VITALS: Ht 154.9 cm; Wt 50.0 kg
[2016-10-20] MEDS: LISINOPRIL 20 MG TAB PO SCH (20:00)
[2016-10-20] MEDS: OXCARBAZEPINE 150 MG TAB PO SCH (20:00)
[2016-10-20] MEDS: ASCORBIC ACID 500 MG TAB PO SCH (20:00)
[2016-10-20] MEDS: VERAPAMIL HCL 240 MG TABCR PO SCH (20:00)
[2016-10-20] MEDS: PANTOprazole SOD 40 MG TAB PO SCH (20:00)
[2016-10-20] MEDS: CYCLOSPORINE 100 MG PO SCH (20:00)
[2016-10-20] MEDS: CIMETIDINE 400 MG TAB PO SCH (20:00)
--- NOTE | 2016-10-20 20:10 | History and Physical ---
History & Physical Date & Time of Service: Oct 20, 2016 at 20:09 . Chief Complaint: fatigue, shortness of breath . Primary Care Physician: Stuart Ravi M.D. . History of Present Illness Source: patient, clinic records, hospital records 46 YO female followed by Dr. Ravi for Family Medicine, Dr. Chad Clemons for Hematology / Oncology, and Dr. Baron for Nephrology. History of renal failure secondary to MPGN and subsequent renal transplant x 2, hemolytic anemia, and other problems noted below. 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 Rankin. Hospitalized at [facility] in August for acute kidney injury. Hgb was as low as 7.2. Received 2 units pRBC's. Hgb was 9.4 on 09/10/16. Discharged to home. Experiencing progressive generalized weakness and dyspnea on exertion. No melena, hematochezia, hematuria, or other apparent blood loss. Hgb on 10/16/16 was 7.2. Seen in clinic today with worsening fatigue and dyspnea. Referred to hospital for further management. . . 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 Family History Diabetes mellitus Heart disease Hypertension Kidney disease Kidney stones Lung disease Social History Smoking Status: Current Every Day Smoker Alcohol Use: none Marital Status: Occupational Status: employed Immunizations History of Influenza Vaccine: Yes History of Pneumococcal: Yes Multi-Drug Resistant Organisms History of MDRO: No Allergies Coded Allergies: Morphine (Verified Allergy, Intermediate, HIVES, HAS HAD CODEINE W/O PROBLEM, 09/06/16) HIVES, HAS HAD CODEINE W/O PROBLEM HAS ALSO TOLERATED TRAMADOL Hydralazine (Verified Allergy, Unknown, HIVES, 09/06/16) Uncoded Allergies: NITRATES (Adverse Reaction, Unknown, MIRAINES, 05/10/15) Home Medications Scheduled Ascorbic Acid (Ascorbic Acid), 500 MG PO BID Azathioprine (Imuran), 100 MG PO QAM Baclofen (Baclofen), 20 MG PO TID Biotin (Biotin), 10,000 MCG PO QAM Buspirone Hcl (Buspirone Hcl), 5 MG PO BID Calcium Carbonate-Vitamin D (Calcium 500 + D), 1 TAB PO BID Cetirizine (Zyrtec), 10 MG PO QAM Cholecalciferol (Vitamin D3), 2,000 UNITS PO QAM Cimetidine (Tagamet), 400 MG PO BID Cyclosporine (Sandimmune), 200 MG PO BID Docusate Sodium (Colace), 100 MG PO BID Fluticasone Propionate (Nasal) (Flonase Allergy Relief), 2 SPRAY JOEL HS Folic Acid (Folic Acid), 1 MG PO DAILY Ganciclovir Ophthalmic (Zirgan), 1 DROP OPL TID Ccqviwydysa-Wvibntwrsry-Fmc C- (Glucosamine Chondroitin), 1 TAB PO BID Lisinopril (Zestril), 20 MG PO BID Lubiprostone (Amitiza), 24 MCG PO HS Melatonin (Melatonin), 15 MG PO HS Methylcellulose (Laxative) (Citrucel), 2-4 TABS PO HS Mirtazapine (Remeron), 45 MG PO HS Multivitamin (Multivitamin), 1 TAB PO QAM Norethindrone (Contraceptive) (Ortho Micronor), 1 TAB PO DAILY [place]-3 Fatty Acids (Fish Oil 1200 mg), 2 CAP PO HS Oxcarbazepine (Trileptal), 1 TAB PO BID Oxymorphone Hcl (Opana Er (Crush Resistant), 5 MG PO Q8 Pantoprazole (Protonix), 40 MG PO BID Prednisone (Prednisone), 2.5 MG PO QAM Simvastatin (Zocor), 5 MG PO QPM Verapamil Sust Rel (Calan Sr Ext Rel), 240 MG PO BID Vitamin E (E-400), 1 CAP PO QAM Scheduled PRN Acetaminophen (Tylenol), 1,000 MG PO PRN PRN for Pain Diclofenac Sodium (Topical) (Diclofenac Sodium), 1 DOSE TOP TID PRN for Pain Diphenhydramine Hcl (Benadryl Allergy), 25 MG PO Q6H PRN for Itching Lorazepam (Ativan), 1 MG PO TID PRN for Anxiety Ondansetron Hcl (Zofran), 4 MG PO tidprn PRN for Nausea Oxycodone Hcl (Oxycodone Hcl), 15 MG PO Q6H PRN for Pain Rizatriptan Benzoate (Maxalt), 10 MG PO PRN PRN for Headache Sumatriptan Succinate (Imitrex), 100 MG PO UD PRN for Headache Zolpidem Tartrate (Ambien), 10 MG PO HS PRN for Insomnia Review of Systems Constitutional: + weight loss, No fever Respiratory: + dyspnea on exertion, No cough Cardiovascular: No chest pain, No edema Abdomen: + nausea, + vomiting, No GI bleeding Genitourinary - Female: + dysuria (mild), No hematuria Neurologic: + problem reported (migraine headaches) Physical Exam Vital Signs Date Time Temp Pulse Resp B/P (MAP) Pulse Ox O2 Delivery O2 Flow Rate FiO2 10/20/16 19:33 Room Air General Appearance: no apparent distress Head: normocephalic, atraumatic Eyes: normal inspection, PERRL, EOMI, sclerae normal ENT: hearing grossly normal, pharynx normal Neck: supple, no adenopathy, thyroid normal, no JVD, trachea midline Respiratory/Chest: lungs clear, no accessory muscle use Cardiovascular: regular rate, rhythm, no edema, no JVD, + systolic murmur (II/ systolic murmur) Abdomen/GI: normal bowel sounds, non tender, soft Extremities/Musculoskelatal: no calf tenderness, no pedal edema Neurologic/Psych: alert Skin: warm/dry Diagnostics Laboratory Results Results Past 24 Hours Test 10/20/16 17:17 10/20/16 18:41 10/20/16 18:55 Range/Units White Blood Count 3.37 4.8-10.8 K/uL Red Blood Count 1.90 4.2-5.4 M/uL Hemoglobin 6.5 12.0-16.0 g/dL Hematocrit 17.7 37-47 % Mean Corpuscular Volume 93.2 80-100 fL Mean Corpuscular Hemoglobin 34.2 25-34 pg Mean Corpuscular Hemoglobin Concent 36.7 32-36 g/dl Platelet Count 247 130-400 K/uL Mean Platelet Volume 8.6 7.4-10.4 fL Neutrophils (%) (Auto) 53.1 % Lymphocytes (%) (Auto) 34.7 % Monocytes (%) (Auto) 10.7 % Eosinophils (%) (Auto) 0.3 % Basophils (%) (Auto) 0.9 % Neutrophils # (Auto) 1.79 1.4-6.5 K/uL Lymphocytes # (Auto) 1.17 1.2-3.4 K/uL Monocytes # (Auto) 0.36 0.11-0.59 K/uL Eosinophils # (Auto) 0.01 0-0.5 K/uL Basophils # (Auto) 0.03 0-0.2 K/uL RDW Standard Deviation 53.0 36.4-46.3 fL RDW Coefficient of Variation 15.5 11.5-14.5 % Immature Granulocyte % (Auto) 0.3 % Immature Granulocyte # (Auto) 0.01 0.00-0.02 K/uL Large Platelets 1+ Poikilocytosis PRESENT Absolute Reticulocyte Count < 0.02 0.02-0.10 10^6/uL Percent Reticulocyte Count < 0.5 0.5-2.0 % Sodium Level 130 136-145 mmol/L Potassium Level 3.9 3.5-5.1 mmol/L Chloride Level 96 98-107 mmol/L Carbon Dioxide Level 28 21-32 mmol/L Anion Gap 6.0 3-11 mmol/L Blood Urea Nitrogen 15 7-18 mg/dl Creatinine 1.00 0.60-1.20 mg/dl Estimated GFR () 78.8 Estimated GFR (Non- 68.0 BUN/Creatinine Ratio 15.1 10-20 Random Glucose 98 70-99 mg/dl Calcium Level 8.6 8.5-10.1 mg/dl Iron Level 188 35-150 mcg/dl Total Iron Binding Capacity 205 250-450 mcg/dl Transferrin 130 200-360 mg/dl Transferrin % Saturation 103 15-50 % Ferritin 1446.0 8.0-388.0 ng/ml Total Bilirubin 0.6 0.2-1 mg/dl Aspartate Amino Transf (AST/SGOT) 12 15-37 U/L Alanine Aminotransferase (ALT/SGPT) 17 12-78 U/L Alkaline Phosphatase 63 45-117 U/L Lactate Dehydrogenase 144 84-246 U/L Total Protein 6.7 6.4-8.2 gm/dl Albumin 3.9 3.4-5.0 gm/dl Globulin 2.8 2.5-4.0 gm/dl Albumin/Globulin Ratio 1.4 0.9-2 Vitamin B12 Level 797 211-911 pg/mL Folate > 24.00 >5.38 ng/mL Impression Assessment and Plan SEVERE ANEMIA Probably multifactorial. Known cold agglutinin hemolytic anemia. Hbg now 6.5; symptomatic. Transfuse to maintain adequate H/H (patient seems to have significant symptoms when Hgb < 8). Consult Hematology. HYPERTENSION Continue lisinopril and verapamil. S/P RENAL TRANSPLANT Serum creatinine stable at 1.0. Continue usual meds. DYSURIA Check UA. CHRONIC PAIN Continue usual regimen. VTE PROPHYLAXIS Will opt for mechanical prophylaxis with SCD's in light of severe anemia Ambulate. DISPOSITION Observation status. Expected discharge to home. Family Medicine follow-up with Dr. Ravi. . Advanced Directives Existing Living Will: No Existing Power of Plant Ecologist: No VTE Prophylaxis VTE Risk Assessment Done? Y/N: Yes Risk Level: Low
[2016-10-20] MEDS: SIMVASTATIN 5 MG TAB PO SCH (21:00)
[2016-10-20] MEDS ORDERED: MELATONIN PO SCH (21:00)
[2016-10-20 21:25] VITALS: BP 119/67; PULSE 74; TEMP 36.9; O2SAT 100
[2016-10-20] MEDS: DiphenhydrAMINE HCL 50 MG/ML VIAL IV PRN (21:41)
[2016-10-20] MEDS: ACETAMINOPHEN 500 MG TAB PO PRN (21:42)
[2016-10-20] MEDS: OXYCODONE HCL IR 5 MG TAB (IMMEDIATE RELEASE) PO PRN (21:49)
[2016-10-20 22:00] VITALS: BP 136/65; PULSE 68; TEMP 36.9; O2SAT 100
[2016-10-20] MEDS: FLUTICASONE PROPIONATE NA SPR 16 GM BTL NAE SCH (22:10)
[2016-10-20] MEDS: DOCUSATE SODIUM 100 MG CAP PO SCH (22:11)
[2016-10-20] MEDS: MIRTAZAPINE TAB 15 MG TAB PO SCH (22:14)
[2016-10-20 22:15] VITALS: BP 153/75; PULSE 66; TEMP 36.9; O2SAT 100
[2016-10-20] MEDS: BACLOFEN TAB 20 MG TAB PO SCH (22:15)
[2016-10-20] MEDS: LUBIPROSTONE 8 MCG CAP PO SCH (22:15)
[2016-10-20] MEDS: DICLOFENAC SOD 1% GEL 100 GM TUBE EXT PRN (22:20)
[2016-10-20 22:25] LABS: URINE APPEARANCE CLEAR (CLEAR); URINE BILIRUBIN NEG (NEG); URINE COLOR DK YELLOW; URINE EPITHELIAL CELL AUTO >30 /lpf (0-5); URINE NITRITE NEG (NEG); UROBILINOGEN POS (NEG); ZZUR CULT IF INDIC CLEAN CATCH YES
[2016-10-20 22:26] LABS: MANUAL MICROSCOPIC REQUIRED? NO; REVIEW REQ? YES
[2016-10-20 22:51] VITALS: BP 154/80; PULSE 72; TEMP 37; O2SAT 100
[2016-10-20 23:15] VITALS: BP 138/76; PULSE 68; TEMP 36.9
[2016-10-21] VITALS (14 sets, daily range): BP systolic 131–161; BP diastolic 67–87; PULSE 62–70; TEMP 36.3–37; O2SAT 95–99
[2016-10-21] MEDS: DiphenhydrAMINE HCL 50 MG/ML VIAL IV PRN ×2 (00:57→11:54)
[2016-10-21] MEDS: ACETAMINOPHEN 500 MG TAB PO PRN ×2 (00:59→11:54)
[2016-10-21] MEDS ORDERED: NURSING VERBAL MED ORDER ONE (02:15)
[2016-10-21] MEDS ORDERED: OXYCODONE HCL IR 5 MG TAB (IMMEDIATE RELEASE) PO STA (02:26)
[2016-10-21 06:46] LABS: HEMATOCRIT 21.8 % (37-47)
[2016-10-21] MEDS: OXYCODONE HCL IR 5 MG TAB (IMMEDIATE RELEASE) PO PRN ×3 (06:48→19:30)
[2016-10-21] MEDS: MULTIVITAMIN TAB PO SCH (08:49)
[2016-10-21] MEDS: BACLOFEN TAB 20 MG TAB PO SCH ×3 (08:49→19:31)
[2016-10-21] MEDS: ASCORBIC ACID 500 MG TAB PO SCH ×2 (08:50→19:39)
[2016-10-21] MEDS: CIMETIDINE 400 MG TAB PO SCH ×2 (08:50→19:38)
[2016-10-21] MEDS: DOCUSATE SODIUM 100 MG CAP PO SCH ×2 (08:50→19:33)
[2016-10-21] MEDS: PANTOprazole SOD 40 MG TAB PO SCH ×2 (08:51→19:33)
[2016-10-21] MEDS: VERAPAMIL HCL 240 MG TABCR PO SCH ×2 (08:51→19:35)
[2016-10-21] MEDS: AZATHIOPRINE 50 MG TAB PO SCH (08:51)
[2016-10-21] MEDS: CYCLOSPORINE 100 MG PO SCH ×2 (08:52→19:37)
[2016-10-21] MEDS: CETIRIZINE HCL 10 MG TAB PO SCH (08:52)
[2016-10-21] MEDS: TOCOPHERYL, DL-ALPHA 400 INTER.UNIT CAP PO SCH (08:52)
[2016-10-21] MEDS: LISINOPRIL 20 MG TAB PO SCH ×2 (08:53→19:38)
[2016-10-21] MEDS: OXCARBAZEPINE 150 MG TAB PO SCH ×2 (08:53→19:32)
[2016-10-21] MEDS ORDERED: GANC0.15 OPL (12:17)
[2016-10-21] MEDS: ONDANSETRON 4 MG TAB PO PRN (12:34)
[2016-10-21] MEDS: OXYMORPHONE 5 MG PO SCH ×2 (13:24→22:02)
[2016-10-21] MEDS: GANCICLOVIR 0.15% OPL SCH ×2 (13:26→19:36)
--- NOTE | 2016-10-21 18:38 | Progress Note ---
Medicine Progress Note Date & Time of Visit: Oct 21, 2016 at 09:30 . Subjective Received 2 units pRBC's during the night. Feels slightly better, but still fatigued and experiencing dyspnea on exertion. No fever. No chest pain. No cough. No N/V. Had severe neck / back pain during the night; received extra dose of oxycodone with relief. . Objective Last 8 Hrs Date Time Temp Pulse Resp B/P (MAP) Pulse Ox O2 Delivery O2 Flow Rate FiO2 10/21/16 16:00 Room Air 10/21/16 14:15 36.9 68 20 145/79 96 10/21/16 13:20 36.3 66 18 161/83 95 10/21/16 12:37 36.7 69 20 144/81 99 10/21/16 12:26 36.8 70 18 135/87 98 10/21/16 12:12 36.5 62 20 134/67 95 Physical Exam: General- no distress Eyes- anicteric Neck- no JVD Lungs- clear Heart- RRR Abdomen- + BS, soft, nontender Extremities- no pretibial edema or calf tenderness Neuro- alert . Laboratory Results: Last 24 Hours Test 10/20/16 20:05 10/21/16 05:24 Urine Color DK YELLOW Urine Appearance CLEAR Urine pH 7.0 Urine Specific [place] 1.020 Urine Protein NEG Urine Glucose (UA) NEG Urine Ketones NEG Urine Occult Blood NEG Urine Nitrite NEG Urine Bilirubin NEG Urine Urobilinogen POS Urine Leukocyte Esterase TRACE Urine WBC (Auto) 1-5 /hpf Urine RBC (Auto) 0-4 /hpf Urine Hyaline Casts (Auto) 1-5 /lpf Urine Epithelial Cells (Auto) >30 /lpf Urine Bacteria (Auto) 1+ Urine Crystals CALCIUM OXALATE Hemoglobin 7.8 g/dL Hematocrit 21.8 % Date/Time Source Procedure Growth Status 10/20/16 20:05 Urine , Clean Catch Urine Culture - Preliminary Escherichia Coli Resulted Assessment & Plan SEVERE ANEMIA Probably multifactorial. Known cold agglutinin hemolytic anemia. Hgb at time of admission 6.5. Normocytic. Retic cout < 0.5%. AST, ALT, LDH, bilirubin normal. Haptoglobin cannot be done on site, but does not appear to be hemolyzing at this time. Fe 188, ferritin 1446, B12 797, folate > 24. Hematology consult pending. Hgb 7.8 after 2 units pRBC's. Still symptomatic with fatigue and HAYES. Transfuse another unit pRBC's today. HYPERTENSION Continue lisinopril and verapamil. S/P RENAL TRANSPLANT Serum creatinine stable at 1.0. Continue usual meds. Follow. DYSURIA UA showed trace leukocyte esterase, 1-5 RBC's, + bacteria. Urine culture growing E coli. Rx with IV ceftriaxone pending culture results. CHRONIC PAIN Continue usual regimen. VTE PROPHYLAXIS Mechanical prophylaxis with SCD's in light of severe anemia Ambulate. DISPOSITION Observation status. Expected discharge to home. Family Medicine follow-up with Dr. Ravi. . Current Inpatient Medications: Current Inpatient Medications Medications (Trade) Dose Ordered Sig/Jose G Route Start Time Stop Time Status Last Admin Dose Admin Miscellaneous Information (Order Awaiting Action) 1 ea QS N/A 10/21/16 00:00 11/20/16 00:00 Ascorbic Acid (Vitamin C Tab) 500 mg BID PO 10/20/16 20:00 11/19/16 19:59 10/21/16 08:50 500 MG Azathioprine (Imuran Tab) 100 mg QAM PO 10/21/16 08:00 11/20/16 07:59 10/21/16 08:51 100 MG Baclofen (Lioresal Tab) 20 mg TID PO 10/20/16 20:00 11/19/16 19:59 10/21/16 13:33 20 MG Buspirone HCl (Buspar Tab) 5 mg BID PO 10/20/16 20:00 11/19/16 19:59 10/21/16 08:53 5 MG Cetirizine HCl (zyrTEC TAB) 10 mg QAM PO 10/21/16 08:00 11/20/16 07:59 10/21/16 08:52 10 MG Cimetidine (Tagamet Tab) 400 mg BID PO 10/20/16 20:00 11/19/16 19:59 10/21/16 08:50 400 MG Cyclosporine (Sandimmune Cap) 200 mg BID PO 10/20/16 20:00 11/19/16 19:59 10/21/16 08:52 200 MG Diclofenac Sodium (Voltaren 1% Top Gel) 1 appln TID PRN EXT 10/20/16 18:45 11/19/16 18:44 10/20/16 22:20 1 APPLN Docusate Sodium (coLACE CAP) 100 mg BID PO 10/20/16 20:00 11/19/16 19:59 10/21/16 08:50 100 MG Fluticasone Propionate (Flonase Nasal [place]) 2 sprays HS JOEL 10/20/16 21:00 11/19/16 20:59 10/20/16 22:10 2 SPRAYS Folic Acid (Folvite Tab) 1 mg DAILY PO 10/21/16 08:00 11/20/16 07:59 10/21/16 08:50 1 MG Lisinopril (Zestril Tab) 20 mg BID PO 10/20/16 20:00 11/19/16 19:59 10/21/16 08:53 20 MG Lorazepam (Ativan Tab) 1 mg TID PRN PO 10/20/16 18:45 11/19/16 18:44 Multivitamins (Multivitamin Tab) 1 tab QAM PO 10/21/16 08:00 11/20/16 07:59 10/21/16 08:49 1 TAB Ondansetron HCl (Zofran Tab) 4 mg Q6H PRN PO 10/20/16 18:45 11/19/16 18:44 10/21/16 12:34 4 MG Oxcarbazepine (Trileptal Tab) 600 mg BID PO 10/20/16 20:00 11/19/16 19:59 10/21/16 08:53 600 MG Pantoprazole Sodium (Protonix Tab) 40 mg BID PO 10/20/16 20:00 11/19/16 19:59 10/21/16 08:51 40 MG Prednisone (PredniSONE TAB) 2.5 mg QAM PO 10/21/16 08:00 11/20/16 07:59 10/21/16 08:52 2.5 MG Rizatriptan Benzoate (Maxalt Tab) 10 mg PRN PRN PO 10/20/16 18:45 11/19/16 18:44 10/21/16 06:48 10 MG Simvastatin (Zocor Tab) 5 mg QPM PO 10/20/16 21:00 11/19/16 20:59 Sumatriptan Succinate (Imitrex Tab) 100 mg UD PRN PO 10/20/16 18:45 11/19/16 18:44 Verapamil HCl (Calan-Sr Tab) 240 mg BID PO 10/20/16 20:00 11/19/16 19:59 10/21/16 08:51 240 MG iv-Nebkz-Syaaeaayac Acetate (Vitamin E Cap) 400 interunit QAM PO 10/21/16 08:00 11/20/16 07:59 10/21/16 08:52 400 INTERUNIT Diphenhydramine HCl (Benadryl Cap) 25 mg Q6H PRN PO 10/20/16 18:45 11/19/16 18:44 Lubiprostone (Amitiza) 24 mcg HS PO 10/20/16 21:00 11/19/16 20:59 10/20/16 22:15 24 MCG Mirtazapine (Remeron Tab) 45 mg HS PO 10/20/16 21:00 11/19/16 20:59 10/20/16 22:14 45 MG Oxycodone HCl (Roxicodone Immediate Rel Tab) 15 mg Q6H PRN PO 10/20/16 18:45 11/03/16 18:44 10/21/16 12:57 15 MG Zolpidem Tartrate (Ambien Tab) 10 mg HS PRN PO 10/20/16 19:00 11/19/16 18:59 Acetaminophen (Tylenol Tab) 500 mg UD PRN PO 10/20/16 19:00 11/19/16 18:59 10/21/16 11:54 500 MG Diphenhydramine HCl (Benadryl Inj) 25 mg UD PRN IV 10/20/16 19:00 11/19/16 18:59 10/21/16 11:54 25 MG Miscellaneous (Iv Fluids Completed) 1 ea PRN PRN N/A 10/20/16 19:30 10/20/17 19:29 Non-Formulary Medication (Non-Formulary Patient'S Own Med) 1 ea DAILY PO 10/22/16 08:00 11/21/16 07:59 Ganciclovir (Zirgan Oph Gel) 1 appln TID OPL 10/21/16 14:00 11/20/16 13:59 10/21/16 13:26 1 APPLN Non-Formulary Medication (Patient'S Own Controlled Med) 1 ea Q8 PO 10/21/16 14:00 11/04/16 13:59 10/21/16 13:24 1 EA
[2016-10-21] MEDS ORDERED: CEFTRIAXONE SOD INJ 1 GM in DEXTROSE 5% ADD-VANTAGE 50ML 50 ML IV SCH (19:00)
[2016-10-21] MEDS: FLUTICASONE PROPIONATE NA SPR 16 GM BTL NAE SCH (21:10)
[2016-10-21] MEDS: SIMVASTATIN 5 MG TAB PO SCH (21:10)
[2016-10-21] MEDS: LUBIPROSTONE 8 MCG CAP PO SCH (21:11)
[2016-10-21] MEDS: MIRTAZAPINE TAB 15 MG TAB PO SCH (21:11)
--- NOTE | 2016-10-21 21:40 | Medical Consult ---
Consultation Date of Consultation: Oct 21, 2016. Attending Physician: Michele Hairston M.D. Reason for Consultation: anemia History of Present Illness 46 year ol female with history of cold agglutinin autoimmune hemolytic anemia. She is on treatment with weekly rituxan. She was recently admitted in August with anemia and had low haptoglobin level on and received 2 units of PRBCs. She saw her director financial planning Dr Clemons and was resumed on weekly rituxan. She has received 3 of the planned 4 treatments so far. She is due for her 4th treatment on Sunday. She had a decrease in her hemoglobin from 8 range down to 7.2 and also baptiste an abnormal creatinine. She was recommended to have it rechecked in case of requiring transfusion but she declined. She states that yesterday she noted fatigue and generalized weakness and is admitted for symptomatic anemia. Her hemoglobin on admission was 6.5g/dL. She denies any melena or hematochezia or hematemesis or hematuria or blood loss. She denies any jaundice or dark urine. She denies any fever or chills. She states though she usually tries to stay warm , sometimes she feels too warm so she adjust the temperature in her room an cool it down with fan or air conditioner, as even here said she is adjusting temp in her room with air conditioning Past Medical/Surgical History PMH/PSH: cold agglutinins autoimmune hemolytic anemia, renal transplant x 2 , history of membranous glomerulonephritis, migraine, hypertension pericarditis, renal calculi, ulcerative colitis, dysplipidemia, cervicalgia, gastroparesis, GERD, DVT, herpes zoster, nuerofibromatosis Medical Problems: (1) Acute kidney injury Status: Acute (2) Dizziness Status: Acute (3) Nausea & vomiting Status: Acute Family History Diabetes mellitus Heart disease Hypertension Kidney disease Kidney stones Lung disease Social History Smoking Status: Current Every Day Smoker Alcohol Use: none Marital Status: Housing Status: lives with family Occupation Status: employed Allergies Coded Allergies: Morphine (Verified Allergy, Intermediate, HIVES, HAS HAD CODEINE W/O PROBLEM, 09/06/16) HIVES, HAS HAD CODEINE W/O PROBLEM HAS ALSO TOLERATED TRAMADOL Hydralazine (Verified Allergy, Unknown, HIVES, 09/06/16) Uncoded Allergies: NITRATES (Adverse Reaction, Unknown, MIRAINES, 05/10/15) Current Inpatient Medications Current Inpatient Medications Medications (Trade) Dose Ordered Sig/Jose G Route Start Time Stop Time Status Last Admin Dose Admin Miscellaneous Information (Order Awaiting Action) 1 ea QS N/A 10/21/16 00:00 11/20/16 00:00 Ascorbic Acid (Vitamin C Tab) 500 mg BID PO 10/20/16 20:00 11/19/16 19:59 10/21/16 19:39 500 MG Azathioprine (Imuran Tab) 100 mg QAM PO 10/21/16 08:00 11/20/16 07:59 10/21/16 08:51 100 MG Baclofen (Lioresal Tab) 20 mg TID PO 10/20/16 20:00 11/19/16 19:59 10/21/16 19:31 20 MG Buspirone HCl (Buspar Tab) 5 mg BID PO 10/20/16 20:00 11/19/16 19:59 10/21/16 19:33 5 MG Cetirizine HCl (zyrTEC TAB) 10 mg QAM PO 10/21/16 08:00 11/20/16 07:59 10/21/16 08:52 10 MG Cimetidine (Tagamet Tab) 400 mg BID PO 10/20/16 20:00 11/19/16 19:59 10/21/16 19:38 400 MG Cyclosporine (Sandimmune Cap) 200 mg BID PO 10/20/16 20:00 11/19/16 19:59 10/21/16 19:37 200 MG Diclofenac Sodium (Voltaren 1% Top Gel) 1 appln TID PRN EXT 10/20/16 18:45 11/19/16 18:44 10/20/16 22:20 1 APPLN Docusate Sodium (coLACE CAP) 100 mg BID PO 10/20/16 20:00 11/19/16 19:59 10/21/16 19:33 100 MG Fluticasone Propionate (Flonase Nasal [place]) 2 sprays HS JOEL 10/20/16 21:00 11/19/16 20:59 10/21/16 21:10 2 SPRAYS Folic Acid (Folvite Tab) 1 mg DAILY PO 10/21/16 08:00 11/20/16 07:59 10/21/16 08:50 1 MG Lisinopril (Zestril Tab) 20 mg BID PO 10/20/16 20:00 11/19/16 19:59 10/21/16 19:38 20 MG Lorazepam (Ativan Tab) 1 mg TID PRN PO 10/20/16 18:45 11/19/16 18:44 Multivitamins (Multivitamin Tab) 1 tab QAM PO 10/21/16 08:00 11/20/16 07:59 10/21/16 08:49 1 TAB Ondansetron HCl (Zofran Tab) 4 mg Q6H PRN PO 10/20/16 18:45 11/19/16 18:44 10/21/16 12:34 4 MG Oxcarbazepine (Trileptal Tab) 600 mg BID PO 10/20/16 20:00 11/19/16 19:59 10/21/16 19:32 600 MG Pantoprazole Sodium (Protonix Tab) 40 mg BID PO 10/20/16 20:00 11/19/16 19:59 10/21/16 19:33 40 MG Prednisone (PredniSONE TAB) 2.5 mg QAM PO 10/21/16 08:00 11/20/16 07:59 10/21/16 08:52 2.5 MG Rizatriptan Benzoate (Maxalt Tab) 10 mg PRN PRN PO 10/20/16 18:45 11/19/16 18:44 10/21/16 06:48 10 MG Simvastatin (Zocor Tab) 5 mg QPM PO 10/20/16 21:00 11/19/16 20:59 10/21/16 21:10 5 MG Sumatriptan Succinate (Imitrex Tab) 100 mg UD PRN PO 10/20/16 18:45 11/19/16 18:44 Verapamil HCl (Calan-Sr Tab) 240 mg BID PO 10/20/16 20:00 11/19/16 19:59 10/21/16 19:35 240 MG ja-Hzyke-Ajihaotnqt Acetate (Vitamin E Cap) 400 interunit QAM PO 10/21/16 08:00 11/20/16 07:59 10/21/16 08:52 400 INTERUNIT Diphenhydramine HCl (Benadryl Cap) 25 mg Q6H PRN PO 10/20/16 18:45 11/19/16 18:44 10/21/16 19:29 25 MG Lubiprostone (Amitiza) 24 mcg HS PO 10/20/16 21:00 11/19/16 20:59 10/21/16 21:11 24 MCG Mirtazapine (Remeron Tab) 45 mg HS PO 10/20/16 21:00 11/19/16 20:59 10/21/16 21:11 45 MG Oxycodone HCl (Roxicodone Immediate Rel Tab) 15 mg Q6H PRN PO 10/20/16 18:45 11/03/16 18:44 10/21/16 19:30 15 MG Zolpidem Tartrate (Ambien Tab) 10 mg HS PRN PO 10/20/16 19:00 11/19/16 18:59 Acetaminophen (Tylenol Tab) 500 mg UD PRN PO 10/20/16 19:00 11/19/16 18:59 10/21/16 11:54 500 MG Diphenhydramine HCl (Benadryl Inj) 25 mg UD PRN IV 10/20/16 19:00 11/19/16 18:59 10/21/16 11:54 25 MG Miscellaneous (Iv Fluids Completed) 1 ea PRN PRN N/A 10/20/16 19:30 10/20/17 19:29 Non-Formulary Medication (Non-Formulary Patient'S Own Med) 1 ea DAILY PO 10/22/16 08:00 11/21/16 07:59 Ganciclovir (Zirgan Oph Gel) 1 appln TID OPL 10/21/16 14:00 11/20/16 13:59 10/21/16 19:36 1 APPLN Non-Formulary Medication (Patient'S Own Controlled Med) 1 ea Q8 PO 10/21/16 14:00 11/04/16 13:59 10/21/16 13:24 1 EA Ceftriaxone Sodium 1 gm/ Dextrose 50 ml @ 100 mls/hr Q24H IV 10/21/16 19:00 10/31/16 18:59 10/21/16 19:47 100 MLS/HR Review of Systems Constitutional: + weakness (generalized improved now with transsfusion), + fatigue, No fever, No chills Eyes: No eye pain ENT: No unusual epistaxis Respiratory: + dyspnea on exertion (on admission, feels better now after PRBC transfusion), No cough, No sputum, No wheezing, No shortness of breath, No dyspnea at rest Cardiovascular: No chest pain, No edema Abdomen: No pain, No nausea, No vomiting, No diarrhea, No constipation, No GI bleeding Genitourinary - Female: No dysuria, No hematuria Neurologic: No numbness/tingling Endocrine: + fatigue Hematologic / Lymphatic: No abnormal bleeding/bruising Integumentary: No rash Physical Exam Date Time Temp Pulse Resp B/P (MAP) Pulse Ox O2 Delivery O2 Flow Rate FiO2 10/21/16 16:00 Room Air 10/21/16 14:15 36.9 68 20 145/79 96 10/21/16 13:20 36.3 66 18 161/83 95 10/21/16 12:37 36.7 69 20 144/81 99 10/21/16 12:26 36.8 70 18 135/87 98 10/21/16 12:12 36.5 62 20 134/67 95 10/21/16 08:00 Room Air 10/21/16 07:29 36.7 63 16 151/81 (104) 97 10/21/16 04:45 36.9 62 16 157/77 98 10/21/16 04:00 36.9 65 18 145/78 98 10/21/16 03:00 36.8 64 16 147/79 98 10/21/16 02:30 36.8 66 18 131/71 98 10/21/16 02:15 37.0 65 18 131/67 99 10/21/16 02:00 36.8 66 16 141/71 97 10/21/16 01:41 36.4 68 16 155/79 96 10/21/16 00:00 Room Air 10/20/16 23:15 36.9 68 20 138/76 10/20/16 22:51 37.0 72 20 154/80 100 10/20/16 22:15 36.9 66 20 153/75 100 10/20/16 22:00 36.9 68 20 136/65 100 10/20/16 21:25 36.9 74 20 119/67 100 0.0 General Appearance: WD/WN, no apparent distress Head: normocephalic, atraumatic Eyes: sclerae normal Neck: no adenopathy, no JVD Respiratory/Chest: chest non-tender, lungs clear, normal breath sounds Cardiovascular: regular rate, rhythm, no edema Abdomen/GI: normal bowel sounds, non tender, soft Extremities/Musculoskelatal: no calf tenderness, no pedal edema, non-tender Neurologic/Psych: alert, normal mood/affect, oriented x 3 Skin: warm/dry Lymphatic: no adenopathy Laboratory Results Last 24 Hours Test 10/21/16 05:24 Hemoglobin 7.8 g/dL Hematocrit 21.8 % Assessment & Plan 46 year old female with cold agglutinin autoimmune hemolyic anemia. She is on treatment with rituxan weekly - has received 3 out of the 4 planned treatments. I would complete the 4th dose of her rituxan on Sunday as scheduled if she is discharged. I discussed with her importance of staying warm even in summer and avoiding cold exposure due to her cold agglutinin AIHA and she verbalized understanding I will check haptoglobin, direct shalonda and cold agglutinins and spep and serum immunofixation She is on immunosuppressants for her history of renal transplant so there could also be a component of marrow suppression or chronic disease contributing to her anemia.She has reticulocytopenia. The low haptoglobin level she had on 10/09/16 is consistent with hemolysis though her ldh and retic count were not high We will recheck haptoglobin level.and cold agglutinin titer She is already on rituxan Transfuse as needed to maintain her hemoglobin >7g/dL. Advised her to make a hospital discharge follow up with Dr Clemons as well for further evaluation of and discussion of treatment options for the anemia and reticulocytopenia Thank you for consult
[2016-10-22] MEDS: OXYCODONE HCL IR 5 MG TAB (IMMEDIATE RELEASE) PO PRN ×3 (01:43→14:58)
[2016-10-22] MEDS: OXYMORPHONE 5 MG PO SCH ×2 (05:42→13:50)
[2016-10-22] MEDS: ONDANSETRON 4 MG TAB PO PRN (05:54)
[2016-10-22 06:39] LABS: BASO % 0.5 %; BASO ABS # 0.02 K/uL (0-0.2); COMPLETE YES; EOS % 1.2 %; HEMATOCRIT 28.6 % (37-47); IG% 0.2 %; LYMPH ABS # 1.94 K/uL (1.2-3.4); MEAN CELL VOLUME 89.7 fL (80-100); MEAN CORPUSCULAR HEMOGLOBIN 32.6 pg (25-34); MEAN CORPUSCULAR HGB CONC 36.4 g/dl (32-36); MEAN PLATELET VOLUME 9.8 fL (7.4-10.4); MONO % 10.7 %; NEUT % 42.4 %; PLATELET COUNT 222 K/uL (130-400); RED BLOOD COUNT 3.19 M/uL (4.2-5.4); WHITE BLOOD COUNT 4.31 K/uL (4.8-10.8)
[2016-10-22 07:03] VITALS: BP 136/75; PULSE 66; TEMP 36.8; O2SAT 98
[2016-10-22 07:34] LABS: BUN/CREATININE RATIO 17.6 (10-20); CALCIUM 8.3 mg/dl (8.5-10.1); CREATININE 0.84 mg/dl (0.60-1.20); POTASSIUM 3.8 mmol/L (3.5-5.1)
[2016-10-22] MEDS ORDERED: NORETHINDRONE 0.35 MG PO SCH (08:00)
[2016-10-22] MEDS ORDERED: [UNRECOGNIZED DRUG - OTHER] PO SCH (08:00)
[2016-10-22] MEDS: CIMETIDINE 400 MG TAB PO SCH (08:33)
[2016-10-22] MEDS: BACLOFEN TAB 20 MG TAB PO SCH ×2 (08:33→13:50)
[2016-10-22] MEDS: PANTOprazole SOD 40 MG TAB PO SCH (08:33)
[2016-10-22] MEDS: TOCOPHERYL, DL-ALPHA 400 INTER.UNIT CAP PO SCH (08:33)
[2016-10-22] MEDS: MULTIVITAMIN TAB PO SCH (08:33)
[2016-10-22] MEDS: CYCLOSPORINE 100 MG PO SCH (08:33)
[2016-10-22] MEDS: VERAPAMIL HCL 240 MG TABCR PO SCH (08:34)
[2016-10-22] MEDS: AZATHIOPRINE 50 MG TAB PO SCH (08:34)
[2016-10-22] MEDS: DOCUSATE SODIUM 100 MG CAP PO SCH (08:35)
[2016-10-22] MEDS: LISINOPRIL 20 MG TAB PO SCH (08:35)
[2016-10-22] MEDS: ASCORBIC ACID 500 MG TAB PO SCH (08:35)
[2016-10-22] MEDS: OXCARBAZEPINE 150 MG TAB PO SCH (08:35)
[2016-10-22] MEDS: GANCICLOVIR 0.15% OPL SCH ×2 (08:38→13:49)
[2016-10-22] MEDS: CETIRIZINE HCL 10 MG TAB PO SCH (08:39)
[2016-10-22] MEDS: DICLOFENAC SOD 1% GEL 100 GM TUBE EXT PRN (09:33)
[2016-10-22 15:27] VITALS: BP 142/74; PULSE 69; TEMP 36.6; O2SAT 98
--- NOTE | 2016-10-22 16:55 | Progress Note ---
Medicine Progress Note Date & Time of Visit: Oct 22, 2016 at 09:20 . Subjective Received another unit of pRBC's yesterday. Feels much better. Fatigue, dyspnea improved. . Objective Last 8 Hrs Date Time Temp Pulse Resp B/P (MAP) Pulse Ox O2 Delivery O2 Flow Rate FiO2 10/22/16 15:30 Room Air 10/22/16 15:27 36.6 69 16 142/74 (96) 98 Physical Exam: General- no distress Neck- no JVD Lungs- clear Heart- RRR Abdomen- + BS, soft, nontender Extremities- no pretibial edema or calf tenderness Neuro- alert . Laboratory Results: Last 24 Hours Test 10/21/16 22:01 10/22/16 05:19 10/22/16 06:50 White Blood Count 4.31 K/uL Red Blood Count 3.19 M/uL Hemoglobin 10.4 g/dL Hematocrit 28.6 % Mean Corpuscular Volume 89.7 fL Mean Corpuscular Hemoglobin 32.6 pg Mean Corpuscular Hemoglobin Concent 36.4 g/dl Platelet Count 222 K/uL Mean Platelet Volume 9.8 fL Neutrophils (%) (Auto) 42.4 % Lymphocytes (%) (Auto) 45.0 % Monocytes (%) (Auto) 10.7 % Eosinophils (%) (Auto) 1.2 % Basophils (%) (Auto) 0.5 % Neutrophils # (Auto) 1.83 K/uL Lymphocytes # (Auto) 1.94 K/uL Monocytes # (Auto) 0.46 K/uL Eosinophils # (Auto) 0.05 K/uL Basophils # (Auto) 0.02 K/uL RDW Standard Deviation 46.7 fL RDW Coefficient of Variation 14.2 % Immature Granulocyte % (Auto) 0.2 % Immature Granulocyte # (Auto) 0.01 K/uL Sodium Level 131 mmol/L Potassium Level 3.8 mmol/L Chloride Level 99 mmol/L Carbon Dioxide Level 25 mmol/L Anion Gap 7.0 mmol/L Blood Urea Nitrogen 15 mg/dl Creatinine 0.84 mg/dl Est Creatinine Clear Calc Drug Dose 63.8 ml/min Estimated GFR () 97.3 Estimated GFR (Non- 83.9 BUN/Creatinine Ratio 17.6 Random Glucose 79 mg/dl Calcium Level 8.3 mg/dl Assessment & Plan SEVERE ANEMIA Probably multifactorial. Known cold agglutinin hemolytic anemia. Hgb at time of admission 6.5. Normocytic. Retic cout < 0.5%. AST, ALT, LDH, bilirubin normal. Haptoglobin cannot be done on site, but does not appear to be hemolyzing at this time. Fe 188, ferritin 1446, B12 797, folate > 24. Hgb 10.4 after 3 units pRBC's. Hematology consulted. HYPERTENSION Continue lisinopril and verapamil. S/P RENAL TRANSPLANT Serum creatinine stable at 0.84. Continue usual meds. Follow. UTI (present on admission) Mild dysuria. UA showed trace leukocyte esterase, 1-5 RBC's, + bacteria. Urine culture growing E coli, pansensitive. Received a dose of IV ceftriaxone. Discharge on amoxicillin 500 mg 3 times a day to complete 7 day course of therapy. CHRONIC PAIN Continue usual regimen. VTE PROPHYLAXIS Mechanical prophylaxis with SCD's in light of severe anemia Ambulate. DISPOSITION Discharge to home. Family Medicine follow-up with Dr. Ravi. Hematology follow-up with Dr. Chad Clemons. Patient is considering transitioning her Nephrology care to a new provider. . Current Inpatient Medications: Current Inpatient Medications Medications (Trade) Dose Ordered Sig/Jose G Route Start Time Stop Time Status Last Admin Dose Admin Miscellaneous Information (Order Awaiting Action) 1 ea QS N/A 10/21/16 00:00 11/20/16 00:00 Ascorbic Acid (Vitamin C Tab) 500 mg BID PO 10/20/16 20:00 11/19/16 19:59 10/22/16 08:35 500 MG Azathioprine (Imuran Tab) 100 mg QAM PO 10/21/16 08:00 11/20/16 07:59 10/22/16 08:34 100 MG Baclofen (Lioresal Tab) 20 mg TID PO 10/20/16 20:00 11/19/16 19:59 10/22/16 13:50 20 MG Buspirone HCl (Buspar Tab) 5 mg BID PO 10/20/16 20:00 11/19/16 19:59 10/22/16 08:32 5 MG Cetirizine HCl (zyrTEC TAB) 10 mg QAM PO 10/21/16 08:00 11/20/16 07:59 10/22/16 08:39 10 MG Cimetidine (Tagamet Tab) 400 mg BID PO 10/20/16 20:00 11/19/16 19:59 10/22/16 08:33 400 MG Cyclosporine (Sandimmune Cap) 200 mg BID PO 10/20/16 20:00 11/19/16 19:59 10/22/16 08:33 200 MG Diclofenac Sodium (Voltaren 1% Top Gel) 1 appln TID PRN EXT 10/20/16 18:45 11/19/16 18:44 10/22/16 09:33 1 APPLN Docusate Sodium (coLACE CAP) 100 mg BID PO 10/20/16 20:00 11/19/16 19:59 10/22/16 08:35 100 MG Fluticasone Propionate (Flonase Nasal [place]) 2 sprays HS JOEL 10/20/16 21:00 11/19/16 20:59 10/21/16 21:10 2 SPRAYS Folic Acid (Folvite Tab) 1 mg DAILY PO 10/21/16 08:00 11/20/16 07:59 10/22/16 08:35 1 MG Lisinopril (Zestril Tab) 20 mg BID PO 10/20/16 20:00 11/19/16 19:59 10/22/16 08:35 20 MG Lorazepam (Ativan Tab) 1 mg TID PRN PO 10/20/16 18:45 11/19/16 18:44 Multivitamins (Multivitamin Tab) 1 tab QAM PO 10/21/16 08:00 11/20/16 07:59 10/22/16 08:33 1 TAB Ondansetron HCl (Zofran Tab) 4 mg Q6H PRN PO 10/20/16 18:45 11/19/16 18:44 10/22/16 05:54 4 MG Oxcarbazepine (Trileptal Tab) 600 mg BID PO 10/20/16 20:00 11/19/16 19:59 10/22/16 08:35 600 MG Pantoprazole Sodium (Protonix Tab) 40 mg BID PO 10/20/16 20:00 11/19/16 19:59 10/22/16 08:33 40 MG Prednisone (PredniSONE TAB) 2.5 mg QAM PO 10/21/16 08:00 11/20/16 07:59 10/22/16 08:34 2.5 MG Rizatriptan Benzoate (Maxalt Tab) 10 mg PRN PRN PO 10/20/16 18:45 11/19/16 18:44 10/21/16 06:48 10 MG Simvastatin (Zocor Tab) 5 mg QPM PO 10/20/16 21:00 11/19/16 20:59 10/21/16 21:10 5 MG Sumatriptan Succinate (Imitrex Tab) 100 mg UD PRN PO 10/20/16 18:45 11/19/16 18:44 Verapamil HCl (Calan-Sr Tab) 240 mg BID PO 10/20/16 20:00 11/19/16 19:59 10/22/16 08:34 240 MG hj-Yxdnk-Ewzpsktxsv Acetate (Vitamin E Cap) 400 interunit QAM PO 10/21/16 08:00 11/20/16 07:59 10/22/16 08:33 400 INTERUNIT Diphenhydramine HCl (Benadryl Cap) 25 mg Q6H PRN PO 10/20/16 18:45 11/19/16 18:44 10/21/16 19:29 25 MG Lubiprostone (Amitiza) 24 mcg HS PO 10/20/16 21:00 11/19/16 20:59 10/21/16 21:11 24 MCG Mirtazapine (Remeron Tab) 45 mg HS PO 10/20/16 21:00 11/19/16 20:59 10/21/16 21:11 45 MG Oxycodone HCl (Roxicodone Immediate Rel Tab) 15 mg Q6H PRN PO 10/20/16 18:45 11/03/16 18:44 10/22/16 14:58 15 MG Zolpidem Tartrate (Ambien Tab) 10 mg HS PRN PO 10/20/16 19:00 11/19/16 18:59 Acetaminophen (Tylenol Tab) 500 mg UD PRN PO 10/20/16 19:00 11/19/16 18:59 10/21/16 11:54 500 MG Diphenhydramine HCl (Benadryl Inj) 25 mg UD PRN IV 10/20/16 19:00 11/19/16 18:59 10/21/16 11:54 25 MG Miscellaneous (Iv Fluids Completed) 1 ea PRN PRN N/A 10/20/16 19:30 10/20/17 19:29 Non-Formulary Medication (Non-Formulary Patient'S Own Med) 1 ea DAILY PO 10/22/16 08:00 11/21/16 07:59 10/22/16 08:36 1 EA Ganciclovir (Zirgan Oph Gel) 1 appln TID OPL 10/21/16 14:00 11/20/16 13:59 10/22/16 13:49 1 APPLN Non-Formulary Medication (Patient'S Own Controlled Med) 1 ea Q8 PO 10/21/16 14:00 11/04/16 13:59 10/22/16 13:50 1 EA Ceftriaxone Sodium 1 gm/ Dextrose 50 ml @ 100 mls/hr Q24H IV 10/21/16 19:00 10/31/16 18:59 10/21/16 19:47 100 MLS/HR
[2016-10-22] MEDS ORDERED: AMX500 PO (16:57)
--- NOTE | 2016-10-22 17:04 | Discharge Instructions ---
Discharge Instructions Date of Service Oct 22, 2016. Admission Reason for Admission: anemia . Discharge Discharge Diagnosis / Problem: anemia, urinary tract infection Discharge Goals Goal(s): Improve function, Improve disease control Activity Recommendations Activity Limitations: resume your previous activity . Instructions / Follow-Up Instructions / Follow-Up FOLLOW-UP APPOINTMENTS HEMATOLOGY CLINIC 10/23/16 8:[address] [facility]ons [facility] will contact you with appointment. FAMILY MEDICINE Dr. Ravi OTHER INSTRUCTIONS: Seek medical attention if you have: * temperature above 101 * chest pain or trouble breathing * abdominal pain, nausea, vomiting * diarrhea, dark stools or bloody stools * any unanswered questions or concerns Call 911 if symptoms are severe. Call if you have any questions or problems. My cell # is [phone]. You can also reach a [facility] hospitalist on duty at [facility] 24 hours a day by calling [phone]. Please take good care of yourself. Michele Hairston . Current Hospital Diet Patient's current hospital diet: Regular Diet Discharge Diet Recommended Diet: AHA Diet (Heart Healthy) Pending Studies Studies pending at discharge: yes List of pending studies: haptoglobin serum protein electrophoresis direct Marty cold agglutinins Work Instructions Lifting Limitations: none Additional Instructions: Radha Burgos has been absent from work since 10/19 because of illness. Expected return to work on Sunday10/24/16 without restrictions. Medical Emergencies . Who to Call and When: Medical Emergencies: If at any time you feel your situation is an emergency, please call 911 immediately. . Non-Emergent Contact Non-Emergency issues call your: Primary Care Provider, Hospital Doctor, Specialist (Sourcing Assistant) . . "Provider Documentation" section prepared by Michele Hairston. . VTE Core Measure Inpt VTE Proph given/why not?: SCD's [place] Drug Monitoring Program Search Results: patient reviewed within database, no issues identified ( chronic pain syndrome with appropriate management)
[2016-10-22 17:12] VITALS: BP 142/74; PULSE 69; TEMP 36.6; O2SAT 98
--- NOTE | 2016-10-23 04:19 | Discharge Summary ---
Discharge Summary Date of Service Oct 23, 2016. Discharge Summary Admission Date: Oct 20, 2016 at 16:16 Discharge Date: Oct 22, 2016 Discharge Disposition: Home Principal Diagnosis: severe anemia . 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 renal transplantation Status: Chronic (10) History of pericarditis Status: Chronic (11) History of renal calculi Status: Chronic (12) Hypertension Status: Chronic (13) Hypertensive heart disease Status: Chronic (14) Macular degeneration Status: Chronic (15) Migraine headache Status: Chronic (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 Procedures: transfusion 3 units pRBC's . Consultations: Hematology . Pending Studies/Follow-Up: haptoglobin cold agglutinins serum protein electrophoresis direct Marty . Medication Reconciliation New Medications: Amoxicillin (Amoxicillin) 500 Mg Cap 500 MG PO TID, #18 CAP Continued Medications: Acetaminophen (Tylenol) 500 Mg Tab 1000 MG PO PRN PRN for Pain Ascorbic Acid (Ascorbic Acid) 500 Mg Tab 500 MG PO BID, TAB Azathioprine (Imuran) 50 Mg Tab 100 MG PO QAM Baclofen (Baclofen) 20 Mg Tab 20 MG PO TID Dose decreased after discussing with the patient Biotin (Biotin) 5,000 Mcg Sub 46254 MCG PO QAM Buspirone Hcl (Buspirone Hcl) 5 Mg Tab 5 MG PO BID, TAB Calcium Carbonate-Vitamin D (Calcium 500 + D) 1 Tab Tab 1 TAB PO BID Cetirizine (Zyrtec) 10 Mg Tab 10 MG PO QAM Cholecalciferol (Vitamin D3) 2,000 Unit Cap 2000 UNITS PO QAM Cimetidine (Tagamet) 400 Mg Tab 400 MG PO BID Cyclosporine (Sandimmune) 100 Mg Cap 200 MG PO BID Diclofenac Sodium (Topical) (Diclofenac Sodium) 1 % Gel 1 DOSE TOP TID PRN for Pain Diphenhydramine Hcl (Benadryl Allergy) 25 Mg Tab 25 MG PO Q6H PRN for Itching Docusate Sodium (Colace) 100 Mg Cap 100 MG PO BID, CAP Fluticasone Propionate (Nasal) (Flonase Allergy Relief) 50 Mcg/Act Spr 2 SPRAY JOEL HS Folic Acid (Folic Acid) 1 Mg Tab 1 MG PO DAILY, TAB Ganciclovir Ophthalmic (Zirgan) 0.15 % Gel 1 DROP OPL TID Bcefpxzkjyw-Sxekmwcpinb-Jvx C- (Glucosamine Chondroitin) 1 Tab Tab 1 TAB PO BID Lisinopril (Zestril) 20 Mg Tab 20 MG PO BID, TAB Lorazepam (Ativan) 1 Mg Tab 1 MG PO TID PRN for Anxiety, TAB Lubiprostone (Amitiza) 24 Mcg Cap 24 MCG PO HS, CAP Melatonin (Melatonin) 5 Mg Cap 15 MG PO HS Methylcellulose (Laxative) (Citrucel) 500 Mg Tab 2-4 TABS PO HS Mirtazapine (Remeron) 45 Mg Tab 45 MG PO HS, TAB Multivitamin (Multivitamin) Tab 1 TAB PO QAM Norethindrone (Contraceptive) (Ortho Micronor) 0.35 Mg Tab 1 TAB PO DAILY for 28 Days, #28 TAB 11 Refills [place]-3 Fatty Acids (Fish Oil 1200 mg) 1 Cap Cap 2 CAP PO HS Ondansetron Hcl (Zofran) 4 Mg Tab 4 MG PO tidprn PRN for Nausea, TAB Oxcarbazepine (Trileptal) 600 Mg Tab 1 TAB PO BID Has been taking 600mg BID at home .Continued the same dose and was advised to see her neurologist CHRIS to adjust the dose if needed Oxycodone Hcl (Oxycodone Hcl) 15 Mg Tab 15 MG PO Q6H PRN for Pain Oxymorphone Hcl (Opana Er (Crush Resistant) 5 Mg Tab 5 MG PO Q8 Pantoprazole (Protonix) 40 Mg Tab 40 MG PO BID Prednisone (Prednisone) 2.5 Mg Tab 2.5 MG PO QAM Rizatriptan Benzoate (Maxalt) 10 Mg Tab 10 MG PO PRN PRN for Headache Simvastatin (Zocor) 5 Mg Tab 5 MG PO QPM Sumatriptan Succinate (Imitrex) 100 Mg Tab 100 MG PO UD PRN for Headache Verapamil Sust Rel (Calan Sr Ext Rel) 240 Mg Tabcr 240 MG PO BID Vitamin E (E-400) 400 Unit Cap 1 CAP PO QAM Zolpidem Tartrate (Ambien) 10 Mg Tab 10 MG PO HS PRN for Insomnia, TAB Admission Information HPI (per Admitting provider): 46 YO female followed by Dr. Ravi for Family Medicine, Dr. Chad Clemons for Hematology / Oncology, and Dr. Baron for Nephrology. History of renal failure secondary to MPGN and subsequent renal transplant x 2, hemolytic anemia, and other problems noted below. 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 Rankin. Hospitalized at [facility] in August for acute kidney injury. Hgb was as low as 7.2. Received 2 units pRBC's. Hgb was 9.4 on 09/10/16. Discharged to home. Experiencing progressive generalized weakness and dyspnea on exertion. No melena, hematochezia, hematuria, or other apparent blood loss. Hgb on 10/16/16 was 7.2. Seen in clinic today with worsening fatigue and dyspnea. Referred to hospital for further management. . . Physical Exam (per Admitting): General Appearance: no apparent distress Head: normocephalic, atraumatic Eyes: normal inspection, PERRL, EOMI, sclerae normal ENT: hearing grossly normal, pharynx normal Neck: supple, no adenopathy, thyroid normal, no JVD, trachea midline Respiratory/Chest: lungs clear, no accessory muscle use Cardiovascular: regular rate, rhythm, no edema, no JVD, + systolic murmur ( II/ systolic murmur) Abdomen/GI: normal bowel sounds, non tender, soft Extremities/Musculoskelatal: no calf tenderness, no pedal edema Neurologic/Psych: alert Skin: warm/dry Hospital Course SEVERE ANEMIA Probably multifactorial. Known cold agglutinin hemolytic anemia. Hgb at time of admission 6.5. Normocytic. Retic cout < 0.5%. AST, ALT, LDH, bilirubin normal. Haptoglobin cannot be done on site, but does not appear to be hemolyzing at this time. Fe 188, ferritin 1446, B12 797, folate > 24. Hgb 10.4 after 3 units pRBC's. Hematology consulted. HYPERTENSION Continue lisinopril and verapamil. S/P RENAL TRANSPLANT Serum creatinine stable at 0.84. Continue usual meds. Follow. UTI (present on admission) Mild dysuria. UA showed trace leukocyte esterase, 1-5 RBC's, + bacteria. Urine culture growing E coli, pansensitive. Received a dose of IV ceftriaxone. Discharge on amoxicillin 500 mg 3 times a day to complete 7 day course of therapy. CHRONIC PAIN Continue usual regimen. VTE PROPHYLAXIS Mechanical prophylaxis with SCD's in light of severe anemia Ambulate. DISPOSITION Discharge to home. Family Medicine follow-up with Dr. Ravi. Hematology follow-up with Dr. Chad Clemons. Patient is considering transitioning her Nephrology care to a new provider. . Discharge Instructions Date of Service Oct 22, 2016. Admission Reason for Admission: anemia . Discharge Discharge Diagnosis / Problem: anemia, urinary tract infection Discharge Goals Goal(s): Improve function, Improve disease control Activity Recommendations Activity Limitations: resume your previous activity . Instructions / Follow-Up Instructions / Follow-Up FOLLOW-UP APPOINTMENTS HEMATOLOGY CLINIC 10/23/16 8:[address] [facility] will contact you with appointment. FAMILY MEDICINE Dr. Ravi OTHER INSTRUCTIONS: Seek medical attention if you have: * temperature above 101 * chest pain or trouble breathing * abdominal pain, nausea, vomiting * diarrhea, dark stools or bloody stools * any unanswered questions or concerns Call 911 if symptoms are severe. Call if you have any questions or problems. My cell # is [phone]. You can also reach a [facility] hospitalist on duty at [facility] 24 hours a day by calling [phone]. Please take good care of yourself. Michele Hairston . Current Hospital Diet Patient's current hospital diet: Regular Diet Discharge Diet Recommended Diet: AHA Diet (Heart Healthy) Pending Studies Studies pending at discharge: yes List of pending studies: haptoglobin serum protein electrophoresis direct Marty cold agglutinins Work Instructions Lifting Limitations: none Additional Instructions: Radha Burgos has been absent from work since 10/19 because of illness. Expected return to work on Sunday10/24/16 without restrictions. Medical Emergencies . Who to Call and When: Medical Emergencies: If at any time you feel your situation is an emergency, please call 911 immediately. . Non-Emergent Contact Non-Emergency issues call your: Primary Care Provider, Hospital Doctor, Specialist (Registered Representative) . . "Provider Documentation" section prepared by Michele Hairston. . VTE Core Measure Inpt VTE Proph given/why not?: SCD's [place] Drug Monitoring Program Search Results: patient reviewed within database, no issues identified ( chronic pain syndrome with appropriate management) . Additional Copies To Chad Clemons M.D.; Stuart Ravi M.D.
[2016-10-24 15:15] LABS: ALBUMIN 4.4 G/DL (3.8-4.8); GAMMA GLOBULIN 0.7 G/DL (0.8-1.7); HAPTOGLOBIN TC 45427W 69 MG/DL (43-212); TOTAL PROTEIN 6.5 G/DL (6.2-8.3)
== END 2016-10-22 17:45 | disposition home or self-care (01) ==
LOC: C.4E 16:16
PROVIDERS: ADMIT Hospitalist; ATTEND Hospitalist
DX: D59.1 Other autoimmune hemolytic anemias (principal); N39.0 Urinary tract infection, site not specified; B96.20 Unspecified Escherichia coli [E. coli] as the cause of diseases classified elsewhere; E78.5 Hyperlipidemia, unspecified; K31.84 Gastroparesis; K21.9 Gastro-esophageal reflux disease without esophagitis; I11.9 Hypertensive heart disease without heart failure; K51.90 Ulcerative colitis, unspecified, without complications; F17.200 Nicotine dependence, unspecified, uncomplicated; Z79.52 Long term (current) use of systemic steroids; Z86.718 Personal history of other venous thrombosis and embolism; Z94.0 Kidney transplant status; Z87.442 Personal history of urinary calculi; Z83.3 Family history of diabetes mellitus; Z82.49 Family history of ischemic heart disease and other diseases of the circulatory system

== ENCOUNTER 2017-02-15 14:29 | Inpatient (IN) | payer OTHER ==
[~2017-02-15] VITALS: Ht 154.9 cm; Wt 53.0 kg
[~2017-02-15 14:29] MED LIST changes: +AMT24 PO; +AMX500 PO; -BCPILLS PO; -BUSP15TA70 PO; +BUSP5TAB59 PO; -CYCL25CA2 PO; +DIPH1TAB87 PO; -FEXO1TAB49 PO; +FLV1 PO; +GANC0.15 OPL; -LINA1CAP2 PO; +NORETAB25 PO; -OFLO0.3S4 OPB; +OXYM1TAB PO; -OXYM1TAB25 PO; -POLY335019 PO; +[UNRECOGNIZED DRUG - CODE] PO
[2017-02-15 15:31] VITALS: BP 132/77; PULSE 82; TEMP 36.9; O2SAT 99; Ht 154.9 cm; Wt 53.0 kg
[2017-02-15] MEDS ORDERED: DOCUSATE SODIUM/SENNA 50/8.6MG TAB PO ONE (16:30)
[2017-02-15] MEDS ORDERED: POLYETHYLENE (MIRALAX) 17 GM PACK PO PRN (16:30)
--- NOTE | 2017-02-15 16:36 | DIAGNOSTIC IMAGING REPORT ---
SINGLE VIEW CHEST CLINICAL HISTORY: Acute renal insufficiency. FINDINGS: An AP, portable, upright chest radiograph is compared to study dated 02/13/2014. The examination is degraded by portable technique and patient rotation. The patient is status post midline sternotomy and aortic valve replacement. A 2-lead cardiac pacemaker partially obscures the left upper chest. The heart is enlarged and there is atherosclerotic calcification of the thoracic aorta. The pulmonary vasculature is noncongested. No airspace consolidation, large pleural effusion, or pneumothorax is seen. The skeletal structures are osteopenic. The bony thorax is grossly intact. IMPRESSION: 1. Cardiomegaly and cardiac pacemaker. There is no radiographic evidence of congestive failure. 2. No airspace consolidation or large pleural effusion is identified. Electronically signed by: Ray Goff M.D. 02/15/2017 4:35 PM Dictated Date/Time: 02/15/2017 4:34 PM
--- NOTE | 2017-02-15 16:49 | History and Physical ---
History & Physical Date & Time of Service: Feb 15, 2017 at 16:41 Chief Complaint: DESIREE Primary Care Physician: Stuart Ravi M.D. History of Present Illness Source: patient, family, hospital records 46 year old female with history of Renal Transplant on Imuran and Prednisone, Aortic Valve Repair and Pacemaker Placement last 01/23/17, HTN, and other problems noted below presenting with elevated creatinine. Patient since discharge from [facility] after Aortic Valve Repair and Pacemaker placement has been feeling fine overall except for feeling fatigued. Her crea at 01/29/17 was noted to be 0.7 and since then has remain elevated at around 1.9. She denies changes with urination, fever/chills, abdominal pain, chest pain, dyspnea, palpitations, dizziness. She was advised to be admitted by Dr. Alejandro. On exam, patient seen resting in bed, comfortable. Denies active symptoms except fatigue and mild "bloating". 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 subsequent renal transplantation Status: Chronic (10) History of pericarditis Status: Chronic (11) History of renal calculi Status: Chronic (12) Hypertension Status: Chronic (13) Hypertensive heart disease Status: Chronic (14) Macular degeneration Status: Chronic (15) Migraine headache Status: Chronic (16) Neurofibromatosis Status: Chronic (17) Pancreatic cyst Status: Chronic (18) Renal transplant recipient Status: Chronic (19) Ulcerative colitis Status: Chronic Surgical Problems: (1) Status post -donor kidney transplantation Status: Chronic (2) Status post living-donor kidney transplantation Status: Chronic Family History Diabetes mellitus Heart disease Hypertension Kidney disease Kidney stones Lung disease Social History Smoking Status: Former Smoker Marital Status: Occupational Status: employed Immunizations History of Influenza Vaccine: Yes History of Pneumococcal: Yes Multi-Drug Resistant Organisms History of MDRO: No Allergies Coded Allergies: Morphine (Verified Allergy, Intermediate, HIVES, HAS HAD CODEINE W/O PROBLEM, 09/06/16) HIVES, HAS HAD CODEINE W/O PROBLEM HAS ALSO TOLERATED TRAMADOL Hydralazine (Verified Allergy, Unknown, HIVES, 09/06/16) Uncoded Allergies: NITRATES (Adverse Reaction, Unknown, MIRAINES, 05/10/15) Home Medications Scheduled Amoxicillin (Amoxicillin), 500 MG PO TID Ascorbic Acid (Ascorbic Acid), 500 MG PO BID Azathioprine (Imuran), 100 MG PO QAM Baclofen (Baclofen), 20 MG PO TID Biotin (Biotin), 10,000 MCG PO QAM Buspirone Hcl (Buspirone Hcl), 5 MG PO BID Calcium Carbonate-Vitamin D (Calcium 500 + D), 1 TAB PO BID Cetirizine (Zyrtec), 10 MG PO QAM Cholecalciferol (Vitamin D3), 2,000 UNITS PO QAM Cimetidine (Tagamet), 400 MG PO BID Cyclosporine (Sandimmune), 200 MG PO BID Docusate Sodium (Colace), 100 MG PO BID Fluticasone Propionate (Nasal) (Flonase Allergy Relief), 2 SPRAY JOEL HS Folic Acid (Folic Acid), 1 MG PO DAILY Ganciclovir Ophthalmic (Zirgan), 1 DROP OPL TID Ciedseidwdm-Uwyoaqiurux-Tup C- (Glucosamine Chondroitin), 1 TAB PO BID Lisinopril (Zestril), 20 MG PO BID Lubiprostone (Amitiza), 24 MCG PO HS Melatonin (Melatonin), 15 MG PO HS Methylcellulose (Laxative) (Citrucel), 2-4 TABS PO HS Mirtazapine (Remeron), 45 MG PO HS Multivitamin (Multivitamin), 1 TAB PO QAM Norethindrone (Contraceptive) (Ortho Micronor), 1 TAB PO DAILY [place]-3 Fatty Acids (Fish Oil 1200 mg), 2 CAP PO HS Oxcarbazepine (Trileptal), 1 TAB PO BID Oxymorphone Hcl (Opana Er (Crush Resistant), 5 MG PO Q8 Pantoprazole (Protonix), 40 MG PO BID Prednisone (Prednisone), 2.5 MG PO QAM Simvastatin (Zocor), 5 MG PO QPM Verapamil Sust Rel (Calan Sr Ext Rel), 240 MG PO BID Vitamin E (E-400), 1 CAP PO QAM Scheduled PRN Acetaminophen (Tylenol), 1,000 MG PO PRN PRN for Pain Diclofenac Sodium (Topical) (Diclofenac Sodium), 1 DOSE TOP TID PRN for Pain Diphenhydramine Hcl (Benadryl Allergy), 25 MG PO Q6H PRN for Itching Lorazepam (Ativan), 1 MG PO TID PRN for Anxiety Ondansetron Hcl (Zofran), 4 MG PO tidprn PRN for Nausea Oxycodone Hcl (Oxycodone Hcl), 15 MG PO Q6H PRN for Pain Rizatriptan Benzoate (Maxalt), 10 MG PO PRN PRN for Headache Sumatriptan Succinate (Imitrex), 100 MG PO UD PRN for Headache Zolpidem Tartrate (Ambien), 10 MG PO HS PRN for Insomnia Review of Systems Constitutional- no fever; no weight loss Eyes- no acute visual changes ENT- no sinus drainage; no pharyngitis Pulmonary- no cough, no wheezing, no shortness of breath Cardiac- no chest pain, no palpitations, no orthopnea, no dependent edema GI- no nausea, no vomiting, no diarrhea, no melena, no hematochezia - no dysuria, no hematuria Musculoskeletal- no arthralgias, no myalgias Derm- no rashes, no new skin lesions, no changing skin lesions Hematologic- no unusual bruising, no unusual bleeding Lymphatics- no adenopathy Endocrine- no polyuria or polydipsia; no heat or cold intolerance Neuro- no headaches, no focal neurologic symptoms Psych- no anxiety, no depression Physical Exam Vital Signs Date Time Temp Pulse Resp B/P (MAP) Pulse Ox O2 Delivery O2 Flow Rate FiO2 02/15/17 15:31 36.9 82 18 132/77 99 Room Air General Appearance: WD/WN Head: normocephalic, atraumatic Eyes: normal inspection, PERRL, EOMI, sclerae normal ENT: normal ENT inspection, hearing grossly normal, pharynx normal Neck: supple, no adenopathy, thyroid normal, no JVD, trachea midline Respiratory/Chest: chest non-tender, lungs clear, normal breath sounds, no respiratory distress, no accessory muscle use Cardiovascular: regular rate, rhythm, no edema, no JVD, no murmur, normal peripheral pulses Abdomen/GI: normal bowel sounds, non tender, soft, no organomegaly Back: normal inspection, no CVA tenderness Extremities/Musculoskelatal: normal inspection, no calf tenderness, normal capillary refill, no pedal edema, normal range of motion Neurologic/Psych: community health consultant II-XII nml as tested, no motor/sensory deficits, alert, normal mood/affect, oriented x 3 Skin: normal color, warm/dry, no rash Lymphatic: no adenopathy Diagnostics Laboratory Results Results Past 24 Hours Test 02/15/17 16:15 Range/Units Impression Assessment and Plan 46 year old female with history of Renal Transplant on Imuran and Prednisone, Aortic Valve Repair and Pacemaker Placement last 01/23/17, HTN, and other problems noted below presenting with elevated creatinine. ACUTE RENAL FAILURE S/P RENAL TRANSPLANT - Renal US IV NSS at 125cchr Urinalysis - Dr. Alejandro consulted S/P AORTIC VALVE REPAIR AND PACEMAKER PLACEMENT FOR COMPLETE HEART BLOCK - check echo - continue Aspirin pacemaker interrogated last week, functioning well as per patient HTN - stable - continue Lisinopril and Verapamil MIGRAINE - stable HISTORY OF DVT - ff coumadin x 2 years now DVT Prophylaxis SCDs for now placed on Heparin SC if staying longer FULL CODE Disposition anticipate d/c home when medically stable Advanced Directives Existing Living Will: No Existing Power of Emulsion Operator: No VTE Prophylaxis VTE Risk Assessment Done? Y/N: Yes Risk Level: Moderate Given or contraindicated: SCD's
[2017-02-15] MEDS ORDERED: [UNRECOGNIZED DRUG - CODE] PO (17:21)
[2017-02-15] MEDS ORDERED: METH-307 PO (17:21)
[2017-02-15] MEDS: SODIUM CHLORIDE 0.9% 1000ML 1,000 ML IV SCH (17:28)
[2017-02-15] MEDS ORDERED: POLY335019 PO (17:29)
[2017-02-15] MEDS: ACETAMINOPHEN 325 MG TAB PO PRN (17:32)
[2017-02-15 17:33] LABS: URINE APPEARANCE CLEAR (CLEAR); URINE BILIRUBIN NEG (NEG); URINE COLOR YELLOW; URINE NITRITE NEG (NEG); URINE SPECIFIC GRAVITY 1.014 (1.000-1.030); UROBILINOGEN NEG (NEG)
[2017-02-15 17:35] LABS: BASO % 0.2 %; BASO ABS # 0.02 K/uL (0-0.2); COMPLETE YES; EOS % 1.2 %; HEMATOCRIT 27.5 % (37-47); IG% 0.2 %; LYMPH ABS # 1.26 K/uL (1.2-3.4); MEAN CELL VOLUME 86.2 fL (80-100); MEAN CORPUSCULAR HEMOGLOBIN 30.4 pg (25-34); MEAN CORPUSCULAR HGB CONC 35.3 g/dl (32-36); MEAN PLATELET VOLUME 8.6 fL (7.4-10.4); MONO % 6.1 %; NEUT % 78.3 %; PLATELET COUNT 295 K/uL (130-400); RED BLOOD COUNT 3.19 M/uL (4.2-5.4); WHITE BLOOD COUNT 8.97 K/uL (4.8-10.8)
[2017-02-15 17:37] LABS: MANUAL MICROSCOPIC REQUIRED? NO; REVIEW REQ? NO
--- NOTE | 2017-02-15 17:44 | DIAGNOSTIC IMAGING REPORT ---
RENAL TRANSPLANT ULTRASOUND CLINICAL HISTORY: Acute renal failure. History of renal transplant. COMPARISON STUDY: CT of the abdomen and pelvis September 06, 2016. TECHNIQUE: Grayscale and color and duplex Doppler sonography of the right lower quadrant renal allograft was performed. FINDINGS: The right lower quadrant renal allograft measures 13.3 cm in maximal dimension. There is mild graft collecting system dilatation which is similar to exam of September 06, 2016. No perigraft fluid collections are present. The transplant renal artery and vein are patent. Resistive indices are within normal limits ranging from 0.6-0.7. IMPRESSION: 1. 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 2. Patent renal transplant artery and vein. Normal resistive indices ranging from 0.6 - 0.7. Electronically signed by: Ariel Coburn M.D. 02/15/2017 5:43 PM Dictated Date/Time: 02/15/2017 5:37 PM
[2017-02-15 17:56] LABS: BUN/CREATININE RATIO 20.6 (10-20); CALCIUM 8.8 mg/dl (8.5-10.1); CREATININE 1.14 mg/dl (0.60-1.20); MAGNESIUM 1.8 mg/dl (1.8-2.4); POTASSIUM 4.3 mmol/L (3.5-5.1)
[2017-02-15] MEDS ORDERED: ZOLPIDEM TARTRATE 10 MG TAB PO PRN (19:30)
[2017-02-15] MEDS ORDERED: LORAZEPAM 1 MG TAB PO PRN (19:30)
[2017-02-15 19:51] VITALS: BP 123/71; PULSE 71; TEMP 36.7; O2SAT 97
[2017-02-15] MEDS: OXYCODONE HCL IR 5 MG TAB (IMMEDIATE RELEASE) PO PRN (20:11)
[2017-02-15] MEDS ORDERED: CYCLOSPORINE 100 MG PO SCH (21:00)
[2017-02-15] MEDS ORDERED: SIMVASTATIN 5 MG TAB PO SCH (21:00)
[2017-02-15] MEDS ORDERED: MIRTAZAPINE TAB 15 MG TAB PO SCH (21:00)
[2017-02-15] MEDS ORDERED: LISINOPRIL 20 MG TAB PO SCH (21:00)
[2017-02-15] MEDS ORDERED: NON-FORMULARY MEDICATION (Melatonin 15 MG) PO SCH (21:00)
[2017-02-15] MEDS ORDERED: LUBIPROSTONE 8 MCG CAP PO SCH (21:00)
[2017-02-15] MEDS ORDERED: FLUTICASONE PROPIONATE NA SPR 16 GM BTL NAE SCH (21:00)
[2017-02-15] MEDS: METHOCARBAMOL 750 MG TAB PO SCH (21:22)
[2017-02-15] MEDS: CIMETIDINE 400 MG TAB PO SCH (21:22)
[2017-02-15] MEDS: PANTOprazole SOD 40 MG TAB PO SCH (21:22)
[2017-02-15] MEDS: OXCARBAZEPINE 150 MG TAB PO SCH (21:23)
[2017-02-15 21:31] LABS: BUN/CREATININE RATIO 16.9 (10-20); CREATININE 1.38 mg/dl (0.60-1.20); POTASSIUM 4.3 mmol/L (3.5-5.1)
[2017-02-16] VITALS: BP 126/76; PULSE 75; TEMP 37.1; O2SAT 96
--- NOTE | 2017-02-16 00:11 | NEPHROLOGY CONSULTATION ---
DATE OF CONSULTATION: 02/15/2017 ATTENDING OF RECORD: Dr. Sen. REASON FOR CONSULTATION: Hyponatremia. Last seen in my clinic in November of this year when she established care with me. The patient at the age of 11 had an ear infection with post-strep GN and got better. At the age of 13, had another kidney infection, that was post-strep GN, had renal biopsy, had MPGN, was on CAPD for about 6 months. Got the first kidney transplant donor in 1984 which lasted for about 5 years and then in 1989 was on CCPD and unfortunately needed nephrectomy in 1989. June 1990, had mother's kidney which was done at [facility], had a mild rejection shortly after the kidney transplant and required steroids, but since then, has had no rejections. Did have a biopsy in 1992, but was deemed to be due to dehydration and no rejection at that time. Did have a kidney stone and required a stent in 1990. Active smoker since age 20. The patient also with a history of hemolytic anemia and treated with Rituxan and now follows with Dr. Clemons for hematology. Was diagnosed with severe aortic regurgitation and was short of breath and fatigued. Currently on Sandimmune 200 mg p.o. b.i.d. and prednisone 2.5 mg a day. Suffers from chronic pain. The patient underwent aortic valve replacement as well as a pacemaker. During the procedure, creatinine was stable and then a week later creatinine worsened from 0.8 to 1.8. The patient was encouraged to drink extra fluids and creatinine level went from 1.8 to 1.9 and sodium level dropped from 134-127. The patient has been starting to feel better. However, with the fact that the kidney function was not improving, deemed appropriate to come into the hospital for further evaluation. The patient has been drinking more water but feeling bloated. Still quite weak for the hospital admission with aortic valve replacement and comes in and creatinine is better at 1.14; however, her sodium level is now down to 122, likely from trying to drink more water. UA is bland. Hemoglobin levels are relatively stable at 9.7. REVIEW OF SYSTEMS: No headaches, no blurry vision. Positive shortness of breath with exertion. No chest pain. No nausea or vomiting. Positive constipation which is chronic for her. Positive abdominal bloating. No rash or itching. All other review of systems otherwise negative. PAST MEDICAL HISTORY: Autoimmune hemolytic anemia requiring Rituxan, hyperlipidemia, history of herpes zoster, history of MPGN requiring 2 kidney transplants, last one in 1990 by her mother, history of kidney stones, hypertension, migraines, ulcerative colitis. PAST SURGICAL HISTORY: One donor kidney transplant, 1 living donor kidney transplant, 1 PD catheter placement. FAMILY HISTORY: Significant for kidney disease and diabetes. SOCIAL HISTORY: Former smoker, no alcohol, no drugs. CURRENT MEDICATIONS: Senna 1 tab daily, Imuran 100 mg a day, Zyrtec 10 mg a day, folic acid 1 mg a day, multivitamin daily, prednisone 2.5 mg a day, verapamil 240 mg daily, Neoral 250 mg p.o. in the morning, BuSpar 5 mg p.o. b.i.d., cimetidine 400 mg p.o. b.i.d., cyclosporine 200 mg at night, lisinopril 20 mg daily, methocarbamol 750 mg p.o. t.i.d., Trileptal 600 mg p.o. b.i.d., Protonix 40 mg p.o. b.i.d., Zocor 5 mg at night, Amitiza 24 mcg at night and normal saline at 125 mL an hour. PHYSICAL EXAMINATION: VITAL SIGNS: Temperature 36.9, pulse 82, respiratory rate is 18, blood pressure 132/77, satting 99% on room air. GENERAL: Awake, alert, oriented x3. EYES: No scleral icterus. ENT: Moist mucous membranes. NECK: Supple. PULMONARY: Clear to auscultation. CARDIAC: Regular rate and rhythm. ABDOMEN: Bowel sounds positive, soft, nontender, nondistended. EXTREMITIES: No clubbing, cyanosis or edema. NEUROLOGICAL: Nonfocal. DERMATOLOGIC: No rash or ulcers noted. LABORATORY DATA: White count is 8, H&H 9.7 and 27.5, platelet count is 295. Sodium level is 122, potassium 4.3, chloride is 91, bicarbonate is 24, BUN is 24, creatinine is 1.14, glucose 95, calcium is 8.8, mag is 1.8. Urinalysis is pending. UA is bland. ASSESSMENT AND PLAN: 1. The patient did have acute kidney injury after aortic valve replacement with pacemaker secondary to complete heart block and was not improving despite drinking more water at home; however, now on repeat labs here in the hospital, creatinine has improved from 1.9 down to 1.14 which is much improved. I have started on normal saline which should continue to improve the patient's kidney function. 2. Renal transplant. Cyclosporine levels have stabilized now. The patient has had kidney transplant since 1990 from her mother with relatively normal kidney function. Creatinine is improving but not yet back to baseline. Doubt rejection this many years out. The patient is very compliant with her medications with a low risk for rejection. I did do a renal transplant ultrasound which does show some mild hydronephrosis, unchanged from previous imaging, with good blood flow to the kidneys. 3. Hyponatremia. The patient has been trying to drink more water, and in the setting of renal failure, perhaps overdid it. Volume status in my opinion looks good. Would like to start normal saline. We will recheck the sodium level and check a urinalysis as well. The patient is on Trileptal as well. We will question whether this is a new medication or not. For now, we will give normal saline, check a urinalysis and follow sodium levels, try and help correct sodium levels appropriately. I appreciate consultation.
[2017-02-16] MEDS: SODIUM CHLORIDE 0.9% 1000ML 1,000 ML IV SCH ×2 (01:26→13:45)
[2017-02-16] MEDS: OXYCODONE HCL IR 5 MG TAB (IMMEDIATE RELEASE) PO PRN ×4 (01:31→13:45)
[2017-02-16] MEDS: ACETAMINOPHEN 325 MG TAB PO PRN ×2 (01:34→07:55)
[2017-02-16 04:00] VITALS: BP 135/90; PULSE 74; TEMP 37; O2SAT 94
[2017-02-16] MEDS: METHOCARBAMOL 750 MG TAB PO SCH (05:34)
[2017-02-16 05:46] LABS: BASO % 0.5 %; BASO ABS # 0.03 K/uL (0-0.2); EOS % 3.8 %; HEMATOCRIT 24.5 % (37-47); IG% 0.3 %; LYMPH % 25.2 %; LYMPH ABS # 1.54 K/uL (1.2-3.4); MEAN CELL VOLUME 86.3 fL (80-100); MEAN CORPUSCULAR HEMOGLOBIN 29.6 pg (25-34); MEAN CORPUSCULAR HGB CONC 34.3 g/dl (32-36); MEAN PLATELET VOLUME 8.1 fL (7.4-10.4); MONO % 10.1 %; NEUT % 60.1 %; PLATELET COUNT 251 K/uL (130-400); RED BLOOD COUNT 2.84 M/uL (4.2-5.4); WHITE BLOOD COUNT 6.12 K/uL (4.8-10.8)
[2017-02-16 06:12] LABS: COMPLETE YES
[2017-02-16 06:17] LABS: BUN/CREATININE RATIO 18.2 (10-20); CALCIUM 8.2 mg/dl (8.5-10.1); CREATININE 1.07 mg/dl (0.60-1.20); MAGNESIUM 1.6 mg/dl (1.8-2.4); POTASSIUM 4.1 mmol/L (3.5-5.1)
[2017-02-16] MEDS: PANTOprazole SOD 40 MG TAB PO SCH (07:56)
[2017-02-16] MEDS: OXCARBAZEPINE 150 MG TAB PO SCH (07:58)
[2017-02-16] MEDS: CIMETIDINE 400 MG TAB PO SCH (07:58)
[2017-02-16 08:00] VITALS: BP 144/91; PULSE 78; TEMP 36.8; O2SAT 95
--- NOTE | 2017-02-16 08:00 | Nephrology Progress Note ---
Nephrology Progress Note Date of Service: Feb 16, 2017. Subjective 46 yo female with recent AVR and pacemaker, has desiree in the setting of renal transplant and was directly admitted. creatinine was improved but sodium was found to be low at 122. on normal saline at 125cc an hour and increased to 126 sodium. decreased normal saline to 75cc/hr since we did not want to overcorrect. Objective Date Time Temp Pulse Resp B/P (MAP) Pulse Ox O2 Delivery O2 Flow Rate FiO2 02/16/17 04:00 37.0 74 18 135/90 (105) 94 Room Air 02/16/17 04:00 Room Air 02/16/17 00:00 Room Air 02/16/17 00:00 37.1 75 18 126/76 (93) 96 Room Air 02/15/17 20:00 Room Air 02/15/17 19:51 36.7 71 16 123/71 (88) 97 Room Air 02/15/17 15:31 36.9 82 18 132/77 99 Room Air Physical Exam: General-aaox3 Eyes-no scleral icterus ENT-mmm Neck-supple Lungs-cta Heart-rrr Abdomen-bs+ s/nt/nd Extremities-no c/c/e Neuro-nonfocal Current Inpatient Medications Medications (Trade) Dose Ordered Sig/Jose G Route Start Time Stop Time Status Last Admin Dose Admin Sodium Chloride 1,000 ml @ 75 mls/hr [id number] IV 02/15/17 16:15 03/17/17 16:14 02/16/17 01:26 75 MLS/HR Acetaminophen (Tylenol Tab) 650 mg Q4H PRN PO 02/15/17 16:30 03/17/17 16:29 02/16/17 01:34 650 MG Senna/Docusate Sodium (Senokot S Tab) 1 tab QAM PO 02/16/17 09:00 03/18/17 08:59 Polyethylene (Miralax Powder Packet) 17 gm DAILY PRN PO 02/15/17 16:30 03/17/17 16:29 Azathioprine (Imuran Tab) 100 mg QAM PO 02/16/17 09:00 03/18/17 08:59 Buspirone HCl (Buspar Tab) 5 mg BID PO 02/15/17 21:00 03/17/17 20:59 02/15/17 21:22 5 MG Cetirizine HCl (zyrTEC TAB) 10 mg QAM PO 02/16/17 09:00 03/18/17 08:59 Cimetidine (Tagamet Tab) 400 mg BID PO 02/15/17 21:00 03/17/17 20:59 02/15/17 21:22 400 MG Cyclosporine (Sandimmune Cap) 200 mg QPM PO 02/15/17 21:00 03/17/17 20:59 02/15/17 21:22 200 MG Fluticasone Propionate (Flonase Nasal [place]) 1 sprays HS JOEL 02/15/17 21:00 03/17/17 20:59 02/15/17 21:23 1 SPRAYS Folic Acid (Folvite Tab) 1 mg DAILY PO 02/16/17 09:00 03/18/17 08:59 Lisinopril (Zestril Tab) 20 mg QPM PO 02/15/17 21:00 03/17/17 20:59 02/15/17 21:22 20 MG Lorazepam (Ativan Tab) 1 mg TID PRN PO 02/15/17 19:30 03/17/17 19:29 Methocarbamol (Robaxin Tab) 750 mg TID PO 02/15/17 21:00 03/17/17 20:59 02/16/17 05:34 750 MG Multivitamins (Multivitamin Tab) 1 tab QAM PO 02/16/17 09:00 03/18/17 08:59 Oxcarbazepine (Trileptal Tab) 600 mg BID PO 02/15/17 21:00 03/17/17 20:59 02/15/17 21:23 600 MG Pantoprazole Sodium (Protonix Tab) 40 mg BID PO 02/15/17 21:00 03/17/17 20:59 02/15/17 21:22 40 MG Prednisone (PredniSONE TAB) 2.5 mg QAM PO 02/16/17 09:00 03/18/17 08:59 Simvastatin (Zocor Tab) 5 mg QPM PO 02/15/17 21:00 03/17/17 20:59 02/15/17 21:22 5 MG Verapamil HCl (Calan-Sr Tab) 240 mg QAM PO 02/16/17 09:00 03/18/17 08:59 Zolpidem Tartrate (Ambien Tab) 10 mg HS PRN PO 02/15/17 19:30 03/17/17 19:29 Lubiprostone (Amitiza) 24 mcg HS PO 02/15/17 21:00 03/17/17 20:59 02/15/17 21:22 24 MCG Mirtazapine (Remeron Tab) 45 mg HS PO 02/15/17 21:00 03/17/17 20:59 02/15/17 21:22 45 MG Oxycodone HCl (Roxicodone Immediate Rel Tab) 15 mg Q4H PRN PO 02/15/17 19:30 03/17/17 19:29 02/16/17 05:35 15 MG Cyclosporine (Neoral Cap) 250 mg QAM PO 02/16/17 09:00 03/18/17 08:59 Last 24 Hours Test 02/15/17 17:10 02/15/17 17:15 02/15/17 21:06 02/16/17 01:25 Urine Color YELLOW Urine Appearance CLEAR Urine pH 5.0 Urine Specific [place] 1.014 Urine Protein NEG Urine Glucose (UA) NEG Urine Ketones NEG Urine Occult Blood NEG Urine Nitrite NEG Urine Bilirubin NEG Urine Urobilinogen NEG Urine Leukocyte Esterase NEG White Blood Count 8.97 K/uL Red Blood Count 3.19 M/uL Hemoglobin 9.7 g/dL Hematocrit 27.5 % Mean Corpuscular Volume 86.2 fL Mean Corpuscular Hemoglobin 30.4 pg Mean Corpuscular Hemoglobin Concent 35.3 g/dl Platelet Count 295 K/uL Mean Platelet Volume 8.6 fL Neutrophils (%) (Auto) 78.3 % Lymphocytes (%) (Auto) 14.0 % Monocytes (%) (Auto) 6.1 % Eosinophils (%) (Auto) 1.2 % Basophils (%) (Auto) 0.2 % Neutrophils # (Auto) 7.01 K/uL Lymphocytes # (Auto) 1.26 K/uL Monocytes # (Auto) 0.55 K/uL Eosinophils # (Auto) 0.11 K/uL Basophils # (Auto) 0.02 K/uL RDW Standard Deviation 44.3 fL RDW Coefficient of Variation 14.0 % Immature Granulocyte % (Auto) 0.2 % Immature Granulocyte # (Auto) 0.02 K/uL Sodium Level 122 mmol/L 126 mmol/L Potassium Level 4.3 mmol/L 4.3 mmol/L Chloride Level 91 mmol/L 95 mmol/L Carbon Dioxide Level 24 mmol/L 24 mmol/L Anion Gap 7.0 mmol/L 7.0 mmol/L Blood Urea Nitrogen 24 mg/dl 23 mg/dl Creatinine 1.14 mg/dl 1.38 mg/dl Est Creatinine Clear Calc Drug Dose 47.0 ml/min 38.8 ml/min Estimated GFR () 67.3 53.4 Estimated GFR (Non- 58.0 46.1 BUN/Creatinine Ratio 20.6 16.9 Random Glucose 95 mg/dl 99 mg/dl Calcium Level 8.8 mg/dl 8.0 mg/dl Magnesium Level 1.8 mg/dl Urine Osmolality 279 mOms/kg Test 02/16/17 05:26 White Blood Count 6.12 K/uL Red Blood Count 2.84 M/uL Hemoglobin 8.4 g/dL Hematocrit 24.5 % Mean Corpuscular Volume 86.3 fL Mean Corpuscular Hemoglobin 29.6 pg Mean Corpuscular Hemoglobin Concent 34.3 g/dl Platelet Count 251 K/uL Mean Platelet Volume 8.1 fL Neutrophils (%) (Auto) 60.1 % Lymphocytes (%) (Auto) 25.2 % Monocytes (%) (Auto) 10.1 % Eosinophils (%) (Auto) 3.8 % Basophils (%) (Auto) 0.5 % Neutrophils # (Auto) 3.68 K/uL Lymphocytes # (Auto) 1.54 K/uL Monocytes # (Auto) 0.62 K/uL Eosinophils # (Auto) 0.23 K/uL Basophils # (Auto) 0.03 K/uL RDW Standard Deviation 44.3 fL RDW Coefficient of Variation 14.0 % Immature Granulocyte % (Auto) 0.3 % Immature Granulocyte # (Auto) 0.02 K/uL Red Blood Cell Morphology Unremarkable Sodium Level 124 mmol/L Potassium Level 4.1 mmol/L Chloride Level 95 mmol/L Carbon Dioxide Level 22 mmol/L Anion Gap 7.0 mmol/L Blood Urea Nitrogen 20 mg/dl Creatinine 1.07 mg/dl Est Creatinine Clear Calc Drug Dose 50.1 ml/min Estimated GFR () 72.6 Estimated GFR (Non- 62.6 BUN/Creatinine Ratio 18.2 Random Glucose 81 mg/dl Calcium Level 8.2 mg/dl Magnesium Level 1.6 mg/dl Date/Time Source Procedure Growth Status 02/15/17 15:25 Nasal MRSA DNA Surveillance Screen - Final Specimen Negative for MRSA by DNA Probe Complete Assessment & Plan renal transplant-mild hydro-unlikely to have rejection. cyclosporine level was good as an outpt. continue current immunosuppressants. DESIREE-creatinine was up to 1.8/1.9 about a week after AVR. may have had some hemodynamic compromise with hypertension after the valve replacement followed by hypotension. creatinine appears to be improving back to baseline. hyponatremia-pt is on several medications which could contribute to hyponatremia. also was trying to drink a lot of water to help improve her kidney function. placed on fluid restriction and now on normal saline. urine osm under 300, so should improve back to the 130s. to increase normal saline back to 125cc an hour and recheck bmp again at noon.
[2017-02-16] MEDS ORDERED: CETIRIZINE HCL 10 MG TAB PO SCH (09:00)
[2017-02-16] MEDS ORDERED: DOCUSATE SODIUM/SENNA 50/8.6MG TAB PO SCH (09:00)
[2017-02-16] MEDS ORDERED: CycloSPORINE (SANDIMMUNE) 25 MG CAP PO SCH (09:00)
[2017-02-16] MEDS ORDERED: VERAPAMIL HCL 240 MG TABCR PO SCH (09:00)
[2017-02-16] MEDS ORDERED: PREGABALIN 50 MG CAP PO SCH (09:00)
[2017-02-16] MEDS ORDERED: CYCLOSPORINE PO SCH ×2 (09:00)
[2017-02-16] MEDS ORDERED: AZATHIOPRINE 50 MG TAB PO SCH (09:00)
[2017-02-16] MEDS ORDERED: CYCLOSPORINE 100 MG PO SCH (09:00)
[2017-02-16] MEDS ORDERED: MULTIVITAMIN TAB PO SCH (09:00)
[2017-02-16] MEDS ORDERED: NON-FORMULARY MEDICATION (Biotin 10,000 MCG) PO SCH (09:00)
[2017-02-16] MEDS ORDERED: ASPIRIN 81 MG ECTAB PO ONE (09:28)
[2017-02-16] MEDS ORDERED: DICLOFENAC SOD 1% GEL 100 GM TUBE EXT PRN (09:30)
--- NOTE | 2017-02-16 10:55 | Cardiology Consultation ---
Cardiology Consultation Date of Consultation: Feb 16, 2017. Requesting Physician: Oncu Reason for Consultation: Heart disease Pt evaluation today including: conversation w/ patient, physical exam, chart review, lab review, review of studies, review of inpatient medication list History of Present Illness The patient is a 46-year-old woman with a past medical history of severe aortic regurgitation and associated dyspnea on exertion. She was initially evaluated in the outpatient setting for symptoms of dyspnea and discovered to have severe aortic regurgitation. Recently she underwent aortic valve replacement at [facility] in [place]. Her hospital course also involved replacement of a portion of the aortic root as well as permanent pacemaker implantation. She was discharged home and recently was discovered to have acute kidney injury. She was admitted to the hospital for hydration and treatment of hyponatremia. Since her hospitalization the patient has had an uneventful recovery. She states that she has an element of fatigue but no significant sternal pain. She has been having some headaches which are not uncommon but she has been prohibited from using her usual migraine medication due to her recent surgery. She has been ambulatory with an element of dyspnea. She denies any dizziness or lightheadedness. She is not aware of any palpitations. Her appetite has been poor but she has been eating. She has an element of constipation but no significant abdominal pain. Past Medical/Surgical History Severe aortic regurgitation History of glomerulonephritis and renal failure with subsequent kidney transplant Hyperlipidemia Hypertension Hemolytic anemia Ulcerative colitis Complete heart block Past surgical history Renal transplant x2 Bioprosthetic aortic valve replacement with 23 mm magna ease valve Aortic root replacement with 28 mm gelweave graft Implantation of dual-chamber Medtronic pacemaker Family History Diabetes mellitus Heart disease Hypertension Kidney disease Kidney stones Lung disease Social History Smoking Status: Former Smoker History of Alcohol Use: Yes (OCCASIONALLY) Review of Systems Respiratory: + shortness of breath Per HPI. All Other Systems: Reviewed and Negative Allergies Coded Allergies: Morphine (Verified Allergy, Intermediate, HIVES, HAS HAD CODEINE W/O PROBLEM, 09/06/16) HIVES, HAS HAD CODEINE W/O PROBLEM HAS ALSO TOLERATED TRAMADOL Hydralazine (Verified Allergy, Unknown, HIVES, 09/06/16) Uncoded Allergies: NITRATES (Adverse Reaction, Unknown, MIRAINES, 05/10/15) Medications Current Inpatient Medications Medications (Trade) Dose Ordered Sig/Jose G Route Start Time Stop Time Status Last Admin Dose Admin Sodium Chloride 1,000 ml @ 75 mls/hr [id number] IV 02/15/17 16:15 03/17/17 16:14 02/16/17 01:26 75 MLS/HR Acetaminophen (Tylenol Tab) 650 mg Q4H PRN PO 02/15/17 16:30 03/17/17 16:29 02/16/17 07:55 650 MG Senna/Docusate Sodium (Senokot S Tab) 1 tab QAM PO 02/16/17 09:00 03/18/17 08:59 02/16/17 07:57 1 TAB Polyethylene (Miralax Powder Packet) 17 gm DAILY PRN PO 02/15/17 16:30 03/17/17 16:29 Azathioprine (Imuran Tab) 100 mg QAM PO 02/16/17 09:00 03/18/17 08:59 02/16/17 07:59 100 MG Buspirone HCl (Buspar Tab) 5 mg BID PO 02/15/17 21:00 03/17/17 20:59 02/16/17 07:57 5 MG Cetirizine HCl (zyrTEC TAB) 10 mg QAM PO 02/16/17 09:00 03/18/17 08:59 02/16/17 08:01 10 MG Cimetidine (Tagamet Tab) 400 mg BID PO 02/15/17 21:00 03/17/17 20:59 02/16/17 07:58 400 MG Cyclosporine (Sandimmune Cap) 200 mg QPM PO 02/15/17 21:00 03/17/17 20:59 02/15/17 21:22 200 MG Fluticasone Propionate (Flonase Nasal [place]) 1 sprays HS JOEL 02/15/17 21:00 03/17/17 20:59 02/15/17 21:23 1 SPRAYS Folic Acid (Folvite Tab) 1 mg DAILY PO 02/16/17 09:00 03/18/17 08:59 02/16/17 08:00 1 MG Lisinopril (Zestril Tab) 20 mg QPM PO 02/15/17 21:00 03/17/17 20:59 02/15/17 21:22 20 MG Lorazepam (Ativan Tab) 1 mg TID PRN PO 02/15/17 19:30 03/17/17 19:29 Multivitamins (Multivitamin Tab) 1 tab QAM PO 02/16/17 09:00 03/18/17 08:59 02/16/17 08:00 1 TAB Oxcarbazepine (Trileptal Tab) 600 mg BID PO 02/15/17 21:00 03/17/17 20:59 02/16/17 07:58 600 MG Pantoprazole Sodium (Protonix Tab) 40 mg BID PO 02/15/17 21:00 03/17/17 20:59 02/16/17 07:56 40 MG Prednisone (PredniSONE TAB) 2.5 mg QAM PO 02/16/17 09:00 03/18/17 08:59 02/16/17 08:00 2.5 MG Simvastatin (Zocor Tab) 5 mg QPM PO 02/15/17 21:00 03/17/17 20:59 02/15/17 21:22 5 MG Verapamil HCl (Calan-Sr Tab) 240 mg QAM PO 02/16/17 09:00 03/18/17 08:59 02/16/17 08:00 240 MG Zolpidem Tartrate (Ambien Tab) 10 mg HS PRN PO 02/15/17 19:30 03/17/17 19:29 Lubiprostone (Amitiza) 24 mcg HS PO 02/15/17 21:00 03/17/17 20:59 02/15/17 21:22 24 MCG Mirtazapine (Remeron Tab) 45 mg HS PO 02/15/17 21:00 03/17/17 20:59 02/15/17 21:22 45 MG Oxycodone HCl (Roxicodone Immediate Rel Tab) 15 mg Q4H PRN PO 02/15/17 19:30 03/17/17 19:29 02/16/17 09:48 15 MG Cyclosporine (Neoral Cap) 250 mg QAM PO 02/16/17 09:00 03/18/17 08:59 02/16/17 08:01 250 MG Pregabalin (Lyrica Cap) 50 mg BID PO 02/16/17 09:00 03/18/17 08:59 02/16/17 08:06 50 MG Methocarbamol (Robaxin Tab) 750 mg TID PRN PO 02/16/17 14:00 03/17/17 20:59 Diclofenac Sodium (Voltaren 1% Top Gel) 1 appln TID PRN EXT 02/16/17 09:30 03/18/17 09:29 Aspirin (Ecotrin Tab) 162 mg QAM PO 02/17/17 09:00 03/19/17 08:59 Physical Exam Vital Signs Past 12 Hours Date Time Temp Pulse Resp B/P (MAP) Pulse Ox O2 Delivery O2 Flow Rate FiO2 02/16/17 08:00 95 Room Air 02/16/17 08:00 36.8 78 16 144/91 (108) 95 Room Air 02/16/17 04:00 37.0 74 18 135/90 (105) 94 Room Air 02/16/17 04:00 Room Air 02/16/17 00:00 Room Air 02/16/17 00:00 37.1 75 18 126/76 (93) 96 Room Air She is alert and oriented x3. Mood affect appear normal. She answered all questions appropriately. HEENT: Sclerae are anicteric. Pupils are equal and reactive to light and accommodation. Extraocular movements were intact. Neuro: Cranial nerves intact Neck: Examination of the submandibular region did not reveal any significant lymphadenopathy. Carotids are palpable bilaterally and free of bruits on auscultation. Some radiation of her aortic murmur. There was no evidence of jugular venous distention. The thyroid was not enlarged. Lungs: Lungs are clear to auscultation bilaterally. There are no rales wheezes or rhonchi. She has normal respiratory effort without use of accessory muscles. There is normal pulmonary excursion. Chest: Well-healed sternotomy scar. Well-healed pacemaker implant site in the left upper chest area Cardiac: The rhythm was regular. S1 and S2 were normal. S2 is crisp. Soft crescendo systolic murmur. The PMI was not markedly displaced on palpation. Abdomen: The abdomen was soft and nontender. Extremities: Patient has bilateral radial pulses that are equal in intensity. There is no evidence cyanosis or clubbing. There was no evidence of significant peripheral edema bilaterally. Skin: There are no rashes noted on examination today. Data Laboratory Results: Last 24 Hours Test 02/15/17 17:10 02/15/17 17:15 02/15/17 21:06 02/16/17 01:25 Urine Color YELLOW Urine Appearance CLEAR Urine pH 5.0 Urine Specific [place] 1.014 Urine Protein NEG Urine Glucose (UA) NEG Urine Ketones NEG Urine Occult Blood NEG Urine Nitrite NEG Urine Bilirubin NEG Urine Urobilinogen NEG Urine Leukocyte Esterase NEG White Blood Count 8.97 K/uL Red Blood Count 3.19 M/uL Hemoglobin 9.7 g/dL Hematocrit 27.5 % Mean Corpuscular Volume 86.2 fL Mean Corpuscular Hemoglobin 30.4 pg Mean Corpuscular Hemoglobin Concent 35.3 g/dl Platelet Count 295 K/uL Mean Platelet Volume 8.6 fL Neutrophils (%) (Auto) 78.3 % Lymphocytes (%) (Auto) 14.0 % Monocytes (%) (Auto) 6.1 % Eosinophils (%) (Auto) 1.2 % Basophils (%) (Auto) 0.2 % Neutrophils # (Auto) 7.01 K/uL Lymphocytes # (Auto) 1.26 K/uL Monocytes # (Auto) 0.55 K/uL Eosinophils # (Auto) 0.11 K/uL Basophils # (Auto) 0.02 K/uL RDW Standard Deviation 44.3 fL RDW Coefficient of Variation 14.0 % Immature Granulocyte % (Auto) 0.2 % Immature Granulocyte # (Auto) 0.02 K/uL Sodium Level 122 mmol/L 126 mmol/L Potassium Level 4.3 mmol/L 4.3 mmol/L Chloride Level 91 mmol/L 95 mmol/L Carbon Dioxide Level 24 mmol/L 24 mmol/L Anion Gap 7.0 mmol/L 7.0 mmol/L Blood Urea Nitrogen 24 mg/dl 23 mg/dl Creatinine 1.14 mg/dl 1.38 mg/dl Est Creatinine Clear Calc Drug Dose 47.0 ml/min 38.8 ml/min Estimated GFR () 67.3 53.4 Estimated GFR (Non- 58.0 46.1 BUN/Creatinine Ratio 20.6 16.9 Random Glucose 95 mg/dl 99 mg/dl Calcium Level 8.8 mg/dl 8.0 mg/dl Magnesium Level 1.8 mg/dl Urine Osmolality 279 mOms/kg Test 02/16/17 05:26 White Blood Count 6.12 K/uL Red Blood Count 2.84 M/uL Hemoglobin 8.4 g/dL Hematocrit 24.5 % Mean Corpuscular Volume 86.3 fL Mean Corpuscular Hemoglobin 29.6 pg Mean Corpuscular Hemoglobin Concent 34.3 g/dl Platelet Count 251 K/uL Mean Platelet Volume 8.1 fL Neutrophils (%) (Auto) 60.1 % Lymphocytes (%) (Auto) 25.2 % Monocytes (%) (Auto) 10.1 % Eosinophils (%) (Auto) 3.8 % Basophils (%) (Auto) 0.5 % Neutrophils # (Auto) 3.68 K/uL Lymphocytes # (Auto) 1.54 K/uL Monocytes # (Auto) 0.62 K/uL Eosinophils # (Auto) 0.23 K/uL Basophils # (Auto) 0.03 K/uL RDW Standard Deviation 44.3 fL RDW Coefficient of Variation 14.0 % Immature Granulocyte % (Auto) 0.3 % Immature Granulocyte # (Auto) 0.02 K/uL Red Blood Cell Morphology Unremarkable Sodium Level 124 mmol/L Potassium Level 4.1 mmol/L Chloride Level 95 mmol/L Carbon Dioxide Level 22 mmol/L Anion Gap 7.0 mmol/L Blood Urea Nitrogen 20 mg/dl Creatinine 1.07 mg/dl Est Creatinine Clear Calc Drug Dose 50.1 ml/min Estimated GFR () 72.6 Estimated GFR (Non- 62.6 BUN/Creatinine Ratio 18.2 Random Glucose 81 mg/dl Calcium Level 8.2 mg/dl Magnesium Level 1.6 mg/dl Imaging: Chest x-ray did not demonstrate any active cardiopulmonary disease EKG: A sensed V paced rhythm Telemetry reviewed: A sense V paced Echocardiogram: My bedside review of her echocardiogram performed today revealed preserved LV systolic function with good function of her new aortic valve. Assessment & Plan 1. Aortic valve disease: Patient seems to have done quite well with her recent valve replacement. She certainly was at high risk for complications given her past medical history, but the valve itself appears to be working well and she appears to be healing without complication. Who have not yet been able to assess any symptom improvement has we are still early in the postoperative period. She should continue on her daily aspirin and follow up with her surgeon as previously scheduled. Valve function appears normal on a preliminary review of her echocardiogram at the bedside. 2. Complete heart block: I reviewed the patient's chest x-ray suggests an atypical placement of the atrial lead, but she does appear to have good sensing based on her telemetry. She reports having had a device interrogation in the past 10 days. There does not appear to be any malfunction with respect to the pacemaker. Complete heart block is a well-known complication of aortic valve surgery. Her surgery appear to be slightly more extensive given the need to repair the aortic root as well. 3. Hypertension: Patient is on aggressive antihypertensive regimen. This medication should be continued and can be adjusted by her envelope addresser as needed. No additional cardiac intervention required at this time. At the time of discharge the patient can be scheduled to follow-up in our clinic on a routine basis at which point we will initiate monitoring of her new pacemaker.
[2017-02-16 12:00] VITALS: BP 119/69; PULSE 78; TEMP 36.7; O2SAT 95; O2SAT 97
[2017-02-16 12:57] LABS: CALCIUM 8.6 mg/dl (8.5-10.1); CREATININE 0.97 mg/dl (0.60-1.20); POTASSIUM 4.1 mmol/L (3.5-5.1)
[2017-02-16] MEDS ORDERED: SLWMEC PO (13:45)
[2017-02-16] MEDS ORDERED: [UNRECOGNIZED DRUG - OTHER] (13:45)
--- NOTE | 2017-02-16 13:48 | Discharge Instructions ---
Discharge Instructions Date of Service Feb 16, 2017. Admission Reason for Admission: DESIREE Discharge Discharge Diagnosis / Problem: Acute renal failure, Hyponatremia, Hypomagnesemia Discharge Goals Goal(s): Therapeutic intervention Activity Recommendations Activity Limitations: per Instructions/Follow-up section Lifting Limitations: gradually increase as tolerated Exercise/Sports Limitations: gradually increase as tolerated . Instructions / Follow-Up Instructions / Follow-Up Please drink when thirsty but monitor urine clarity to determine if you are drinking too little or too much Please see Dr. Ravi on February 22 at 10:05 AM for hospital follow up Please have labs drawn on February 19. Please see Cardiology for pacemaker follow up Please follow up with CT surgery as recommended Current Hospital Diet Patient's current hospital diet: AHA Diet (Heart Healthy) Discharge Diet Recommended Diet: AHA Diet (Heart Healthy) Pending Studies Studies pending at discharge: no Laboratory Results 02/16/17 05:26 Red Blood Count 2.84, Mean Corpuscular Volume 86.3, Mean Corpuscular Hemoglobin 29.6, Mean Corpuscular Hemoglobin Concent 34.3, Mean Platelet Volume 8.1, Neutrophils (%) (Auto) 60.1, Lymphocytes (%) (Auto) 25.2, Monocytes (%) (Auto) 10.1, Eosinophils (%) (Auto) 3.8, Basophils (%) (Auto) 0.5, Neutrophils # (Auto ) 3.68, Lymphocytes # (Auto) 1.54, Monocytes # (Auto) 0.62, Eosinophils # (Auto ) 0.23, Basophils # (Auto) 0.03 02/16/17 11:41 Test 02/15/17 17:10 02/16/17 01:25 02/16/17 05:26 02/16/17 11:41 Urine Color YELLOW Urine Appearance CLEAR (CLEAR) Urine pH 5.0 (4.5-7.5) Urine Specific [place] 1.014 (1.000-1.030) Urine Protein NEG (NEG) Urine Glucose (UA) NEG (NEG) Urine Ketones NEG (NEG) Urine Occult Blood NEG (NEG) Urine Nitrite NEG (NEG) Urine Bilirubin NEG (NEG) Urine Urobilinogen NEG (NEG) Urine Leukocyte Esterase NEG (NEG) Urine Osmolality 279 mOms/kg (500-800) White Blood Count 6.12 K/uL (4.8-10.8) Red Blood Count 2.84 M/uL (4.2-5.4) Hemoglobin 8.4 g/dL (12.0-16.0) Hematocrit 24.5 % (37-47) Mean Corpuscular Volume 86.3 fL (80-100) Mean Corpuscular Hemoglobin 29.6 pg (25-34) Mean Corpuscular Hemoglobin Concent 34.3 g/dl (32-36) Platelet Count 251 K/uL (130-400) Mean Platelet Volume 8.1 fL (7.4-10.4) Neutrophils (%) (Auto) 60.1 % Lymphocytes (%) (Auto) 25.2 % Monocytes (%) (Auto) 10.1 % Eosinophils (%) (Auto) 3.8 % Basophils (%) (Auto) 0.5 % Neutrophils # (Auto) 3.68 K/uL (1.4-6.5) Lymphocytes # (Auto) 1.54 K/uL (1.2-3.4) Monocytes # (Auto) 0.62 K/uL (0.11-0.59) Eosinophils # (Auto) 0.23 K/uL (0-0.5) Basophils # (Auto) 0.03 K/uL (0-0.2) RDW Standard Deviation 44.3 fL (36.4-46.3) RDW Coefficient of Variation 14.0 % (11.5-14.5) Immature Granulocyte % (Auto) 0.3 % Immature Granulocyte # (Auto) 0.02 K/uL (0.00-0.02) Red Blood Cell Morphology Unremarkable Magnesium Level 1.6 mg/dl (1.8-2.4) Anion Gap 7.0 mmol/L (3-11) Est Creatinine Clear Calc Drug Dose 55.2 ml/min Estimated GFR () 81.8 Estimated GFR (Non- 70.5 BUN/Creatinine Ratio 17.0 (10-20) Calcium Level 8.6 mg/dl (8.5-10.1) Date/Time Source Procedure Growth Status 02/15/17 15:25 Nasal MRSA DNA Surveillance Screen - Final Specimen Negative for MRSA by DNA Probe Complete Medical Emergencies . Who to Call and When: Medical Emergencies: If at any time you feel your situation is an emergency, please call 911 immediately. . Non-Emergent Contact Non-Emergency issues call your: Primary Care Provider, Wood Technologist, Textile Colorist [place] . . "Provider Documentation" section prepared by Tabatha Balderrama. . VTE Core Measure Inpt VTE Proph given/why not?: SCD's
--- NOTE | 2017-02-16 13:51 | Discharge Summary ---
Discharge Summary Date of Service Feb 16, 2017. Discharge Summary Admission Date: Feb 15, 2017 at 15:31 Discharge Date: Feb 16, 2017 Discharge Disposition: Home Principal Diagnosis: DESIREE, Hyponatremia Procedures: TTE Pending Studies/Follow-Up: Repeat BMP and mag Medication Reconciliation New Medications: Magnesium Chloride (Slow-Mag Tab) 64 Mg Tabcr 64 MG PO DAILY, #7 TAB [Labs:] () #1 Please have Basic Metabolic panel and Magnesium levels drawn on Sunday February 19, 2017. Results should be forwarded to Dr. Ravi and Dr. Alejandro Continued Medications: Acetaminophen (Tylenol) 500 Mg Tab 1000 MG PO PRN PRN for Pain Ascorbic Acid (Ascorbic Acid) 500 Mg Tab 500 MG PO BID, TAB Azathioprine (Imuran) 50 Mg Tab 100 MG PO QAM Biotin (Biotin) 5,000 Mcg Sub 97494 MCG PO QAM Buspirone Hcl (Buspirone Hcl) 5 Mg Tab 5 MG PO BID, TAB Calcium Carbonate-Vitamin D (Calcium 500 + D) 1 Tab Tab 1 TAB PO BID Cetirizine (Zyrtec) 10 Mg Tab 10 MG PO QAM Cimetidine (Tagamet) 400 Mg Tab 400 MG PO BID Cyclosporine (Sandimmune) 100 Mg Cap 200 MG PO QPM Cyclosporine (Sandimmune) 100 Mg Cap 250 MG PO QAM Diclofenac Sodium (Topical) (Diclofenac Sodium) 1 % Gel 1 DOSE TOP TID PRN for Pain Diphenhydramine Hcl (Benadryl Allergy) 25 Mg Tab 25 MG PO Q6H PRN for Itching Docusate Sodium (Colace) 100 Mg Cap 100 MG PO BID, CAP Fluticasone Propionate (Nasal) (Flonase Allergy Relief) 50 Mcg/Act Spr 2 SPRAY JOEL HS Folic Acid (Folic Acid) 1 Mg Tab 1 MG PO DAILY, TAB Iybohiaqhxy-Vydaeoopiby-Bft C- (Glucosamine Chondroitin) 1 Tab Tab 1 TAB PO BID Lisinopril (Zestril) 20 Mg Tab 20 MG PO QPM, TAB Lorazepam (Ativan) 1 Mg Tab 1 MG PO TID PRN for Anxiety, TAB Lubiprostone (Amitiza) 24 Mcg Cap 24 MCG PO HS, CAP Melatonin (Melatonin) 5 Mg Cap 15 MG PO HS Methocarbamol (Robaxin) 750 Mg Tab 750 MG PO TID, TAB Methylcellulose (Laxative) (Citrucel) 500 Mg Tab 2-4 TABS PO HS Mirtazapine (Remeron) 45 Mg Tab 45 MG PO HS, TAB Multivitamin (Multivitamin) Tab 1 TAB PO QAM Avon-3 Fatty Acids (Fish Oil 1200 mg) 1 Cap Cap 2 CAP PO HS Ondansetron Hcl (Zofran) 4 Mg Tab 4 MG PO tidprn PRN for Nausea, TAB Oxcarbazepine (Trileptal) 600 Mg Tab 600 MG PO BID Has been taking 600mg BID at home .Continued the same dose and was advised to see her neurologist CHRIS to adjust the dose if needed Oxycodone Hcl (Oxycodone Hcl) 15 Mg Tab 15 MG PO 5XD PRN for Pain Pantoprazole (Protonix) 40 Mg Tab 40 MG PO BID Polyethylene Glycol 3350 (Miralax) 1 Pow Pow 17 GM PO DAILY PRN for Constipation, #527 GM Prednisone (Prednisone) 2.5 Mg Tab 2.5 MG PO QAM Rizatriptan Benzoate (Maxalt) 10 Mg Tab 10 MG PO PRN PRN for Headache Simvastatin (Zocor) 5 Mg Tab 5 MG PO QPM Sumatriptan Succinate (Imitrex) 100 Mg Tab 100 MG PO UD PRN for Headache Verapamil Sust Rel (Calan Sr Ext Rel) 240 Mg Tabcr 240 MG PO QAM Vitamin E (E-400) 400 Unit Cap 1 CAP PO QAM Zolpidem Tartrate (Ambien) 10 Mg Tab 10 MG PO HS PRN for Insomnia, TAB Admission Information HPI (per Admitting provider): 46 year old female with history of Renal Transplant on Imuran and Prednisone, Aortic Valve Repair and Pacemaker Placement last 01/23/17, HTN, and other problems noted below presenting with elevated creatinine. Patient since discharge from [facility] after Aortic Valve Repair and Pacemaker placement has been feeling fine overall except for feeling fatigued. Her crea at 01/29/17 was noted to be 0.7 and since then has remain elevated at around 1.9. She denies changes with urination, fever/chills, abdominal pain, chest pain, dyspnea, palpitations, dizziness. She was advised to be admitted by Dr. Alejandro. On exam, patient seen resting in bed, comfortable. Denies active symptoms except fatigue and mild "bloating". Physical Exam (per Admitting): General Appearance: WD/WN Head: normocephalic, atraumatic Eyes: normal inspection, PERRL, EOMI, sclerae normal ENT: normal ENT inspection, hearing grossly normal, pharynx normal Neck: supple, no adenopathy, thyroid normal, no JVD, trachea midline Respiratory/Chest: chest non-tender, lungs clear, normal breath sounds, no respiratory distress, no accessory muscle use Cardiovascular: regular rate, rhythm, no edema, no JVD, no murmur, normal peripheral pulses Abdomen/GI: normal bowel sounds, non tender, soft, no organomegaly Back: normal inspection, no CVA tenderness Extremities/Musculoskelatal: normal inspection, no calf tenderness, normal capillary refill, no pedal edema, normal range of motion 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 2. Patent renal transplant artery and vein. Normal resistive indices ranging from 0.6 - 0.7. -hydrated with IV fluids -UA neg -Nephrology consulted, agree with discharge home and repeat labs on Sunday HYPONATREMIA: -improving with IV fluids; Na 127 -patient encouraged to drink when thirsty but not excessively S/P AORTIC VALVE REPAIR: AND PACEMAKER PLACEMENT FOR COMPLETE HEART BLOCK -TTE: * -- Conclusions -- * 1. Normal LV size. Borderline concentric LVH. * 2. Normal LV systolic function. LVEF 60-65%. Abnormal septal motion consistent with post-op state/conduction abnormality. * 3. Normal RV size and function. * 4. Well-seated bioprosthetic AVR with expected transvalvular gradients. No AI * 5. No prior studies for comparison. 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 HEENT: No acute trauma, normocephalic, mucous membranes moist, no nasal congestion, no scleral icterus. NECK: No stridor, trachea is midline. LUNGS: Clear to auscultation bilaterally, no wheeze, no rhonchi, breath sounds equal. HEART: Without gallops or rubs, regular rate and rhythm. +LA ABDOMEN: Soft, nontender, bowel sounds positive EXTREMITIES: No cyanosis or edema, full range of motion of all the joints without pain or difficulty, no signs for acute trauma. NEUROLOGIC: Oriented x 3, no acute motor or sensory deficits, no focal weakness. SKIN: No rash, no jaundice, no diaphoresis. Total time spent on discharge = 35 This includes examination of the patient, discharge planning, medication reconciliation, and communication with other providers. Discharge Instructions See patient instructions
[2017-02-16] MEDS ORDERED: METHOCARBAMOL 750 MG TAB PO PRN (14:00)
[2017-02-16 14:07] VITALS: BP 119/69; PULSE 78; TEMP 36.7; O2SAT 97
--- NOTE | 2017-02-16 19:10 | ECHOCARDIOGRAM REPORT ---
*NOTICE TO RECEIVING CONSTITUTION PARTY AGENCY This information is strictly Confidential and protected under [place] law. [place] law prohibits you from making any further disclosure of this information unless further disclosure is expressly permitted by the written consent of the person to whom it pertains or is authorized by law. A general authorization for the release of medical or other information is not sufficient for this purpose. Hospital accepts no responsibility if the information is made available to any other person, INCLUDING THE PATIENT. Interpretation Summary * Name: CARLITO GRAY Study Date: 02/16/2017 08:45 AM BP: 135/90 mmHg * Patient Location: .MSICU\S\E105\S\1 HR: 74 * : 1970 (M/d/yyyy) Gender: Female Height: 61 in * Age: 46 yrs Ethnicity: CA Weight: 116 lb * Ordering Physician: Herb Sen * Referring Physician: Velvet Alejandro I. * Performed By: Anastacio Argueta RCS * * Reason For Study: Recent AVR (Bovine) * BSA: 1.5 m2 * -- Conclusions -- * 1. Normal LV size. Borderline concentric LVH. * 2. Normal LV systolic function. LVEF 60-65%. Abnormal septal motion consistent with post-op state/conduction abnormality. * 3. Normal RV size and function. * 4. Well-seated bioprosthetic AVR with expected transvalvular gradients. No AI * 5. No prior studies for comparison. Procedure Details * A complete two-dimensional transthoracic echocardiogram was performed (2D, M-mode, Doppler and color flow Doppler). Left Ventricle * The left ventricle is grossly normal size. * There is borderline concentric left ventricular hypertrophy. * Ejection Fraction = 60-65%. * Septal motion is consistent with conduction abnormality. Right Ventricle * There is a pacemaker lead in the right ventricle. * The right ventricle is grossly normal size. * The right ventricular systolic function is normal as assessed by tricuspid annular plane systolic excursion (TAPSE) (normal >1.5 cm). Atria * The left atrium is mildly dilated. * Right atrial size is normal. * No ASD detected; PFO is not assessed. Mitral Valve * The mitral valve is grossly normal. * Mitral stenosis is absent. * There is trace mitral regurgitation. Tricuspid Valve * There is trace tricuspid regurgitation. Aortic Valve * No hemodynamically significant valvular aortic stenosis. * There is no significant aortic regurgitation. * The prosthetic aortic valve is well-seated. * Bioprosthetic leaflets are thin and move normally. Pulmonic Valve * The pulmonary valve is inadequately visualized, but the Doppler data is adequate for interpretation. * Pulmonic stenosis is absent. * Trace pulmonic valvular regurgitation. Great Vessels * The aortic root and proximal ascending aorta are normal sized. Pericardium/Pleural * There is no pericardial effusion. Great Vessels * IVC >2.1, >50% change with respiration. Est RA 8 mmHg. MMode 2D Measurements and Calculations IVSd 1.0 cm IVSs 1.3 cm LVIDd 4.2 cm LVIDs 2.6 cm LVPWd 1.0 cm LVPWs 1.3 cm IVS/LVPW 0.99 FS 37.7 % EDV(Teich) 80.6 ml ESV(Teich) 25.7 ml EF(Teich) 68.2 % EDV(cubed) 76.6 ml ESV(cubed) 18.5 ml EF(cubed) 75.8 % % IVS thick 27.9 % % LVPW thick 30.0 % LV mass(C)d 141.5 grams LV mass(C)dI 94.4 grams/m\S\2 LV mass(C)s 105.5 grams LV mass(C)sI 70.4 grams/m\S\2 SV(Teich) 55.0 ml SI(Teich) 36.7 ml/m\S\2 SV(cubed) 58.1 ml SI(cubed) 38.7 ml/m\S\2 Ao root diam 3.1 cm Ao root area 7.4 cm\S\2 LA dimension 3.8 cm asc Aorta Diam 2.7 cm LA/Ao 1.2 EDV(MOD-sp4) 145.0 ml ESV(MOD-sp4) 59.0 ml EF(MOD-sp4) 59.3 % EDV(MOD-sp2) 120.0 ml ESV(MOD-sp2) 54.0 ml EF(MOD-sp2) 55.0 % SV(MOD-sp4) 86.0 ml SI(MOD-sp4) 57.4 ml/m\S\2 SV(MOD-sp2) 66.0 ml SI(MOD-sp2) 44.0 ml/m\S\2 Doppler Measurements and Calculations MV E max hemal 98.4 cm/sec MV A max hemal 119.9 cm/sec MV E/A 0.82 MV P1/2t max hemal 88.4 cm/sec MV P1/2t 81.6 msec MVA(P1/2t) 2.7 cm\S\2 MV dec slope 317.3 cm/sec\S\2 MV dec time 0.23 sec Ao V2 max 226.0 cm/sec Ao max PG 20.4 mmHg Ao max PG (full) 10.0 mmHg Ao V2 mean 155.2 cm/sec Ao mean PG 10.7 mmHg Ao mean PG (full) 5.2 mmHg Ao V2 VTI 40.2 cm LV V1 max PG 10.5 mmHg LV V1 mean PG 5.5 mmHg LV V1 max 161.7 cm/sec LV V1 mean 110.4 cm/sec LV V1 VTI 32.2 cm SV(Ao) 296.0 ml SI(Ao) 197.5 ml/m\S\2 PA V2 max 164.5 cm/sec PA max PG 10.8 mmHg PI max hemal 172.4 cm/sec PI max PG 11.9 mmHg PI dec slope 276.1 cm/sec\S\2 PI P1/2t 182.9 msec TR max hemal 224.9 cm/sec
[2017-02-17] MEDS ORDERED: ASPIRIN 81 MG ECTAB PO SCH (09:00)
== END 2017-02-16 15:02 | disposition home or self-care (01) | DRG 683 ==
LOC: UNDOADMIN 15:01 → C.MSICU 15:01
PROVIDERS: ADMIT Internal Medicine; ATTEND Internal Medicine
DX: N17.9 Acute kidney failure, unspecified (principal); E87.1 Hypo-osmolality and hyponatremia; Z94.0 Kidney transplant status; I10 Essential (primary) hypertension; G43.909 Migraine, unspecified, not intractable, without status migrainosus; Z79.52 Long term (current) use of systemic steroids; Z79.899 Other long term (current) drug therapy; Z86.718 Personal history of other venous thrombosis and embolism; Z95.0 Presence of cardiac pacemaker; Z95.2 Presence of prosthetic heart valve; Z88.6 Allergy status to analgesic agent

== ENCOUNTER 2017-03-28 18:00 | Inpatient (IN) | payer OTHER ==
[~2017-03-28] VITALS: Ht 157.5 cm; Wt 49.8 kg
[~2017-03-28 18:00] MED LIST changes: -AMX500 PO; -CHOL2000 PO; -GANC0.15 OPL; -LRS20 PO; +METH-307 PO; -NORETAB25 PO; -OXYM1TAB PO; +POLY335019 PO; +SLWMEC PO; +[UNRECOGNIZED DRUG - OTHER]
[2017-03-28] MEDS ORDERED: SODIUM CHLORIDE 0.9% 1000ML 1,000 ML IV STA (18:18)
--- NOTE | 2017-03-28 18:34 | DIAGNOSTIC IMAGING REPORT ---
SINGLE VIEW CHEST CLINICAL HISTORY: Change in mental status. Hyponatremia. FINDINGS: An AP, portable, upright chest radiograph is compared to study dated 02/15/2017. The examination is degraded by portable technique and patient rotation. The patient is status post midline sternotomy and aortic valve replacement. A 2-lead cardiac pacemaker partially obscures the left upper chest. The heart is enlarged and there is atherosclerotic calcification of the thoracic aorta. The pulmonary vasculature is noncongested. No airspace consolidation, large pleural effusion, or pneumothorax is seen. The skeletal structures are osteopenic. The bony thorax is grossly intact. IMPRESSION: 1. Cardiomegaly and cardiac pacemaker. There is no radiographic evidence of congestive failure. 2. No airspace consolidation or large pleural effusion is identified. Electronically signed by: Ray Goff M.D. 03/28/2017 6:33 PM Dictated Date/Time: 03/28/2017 6:32 PM
[2017-03-28 18:59] LABS: BASO % 0.7 %; BASO ABS # 0.04 K/uL (0-0.2); EOS % 3.3 %; EOS ABS # 0.19 K/uL (0-0.5); HEMOGLOBIN 11.9 g/dL (12.0-16.0); IG# 0.01 K/uL (0.00-0.02); LYMPH % 28.5 %; LYMPH ABS # 1.64 K/uL (1.2-3.4); MEAN CELL VOLUME 85.1 fL (80-100); MEAN CORPUSCULAR HEMOGLOBIN 30.7 pg (25-34); MEAN CORPUSCULAR HGB CONC 36.1 g/dl (32-36); MEAN PLATELET VOLUME 9.2 fL (7.4-10.4); MONO % 11.5 %; MONO ABS # 0.66 K/uL (0.11-0.59); NEUT % 55.8 %; NEUT ABS # 3.21 K/uL (1.4-6.5); PLATELET COUNT 322 K/uL (130-400); RED CELL DISTRIBUTION WIDTH CV 15.3 % (11.5-14.5); RED CELL DISTRIBUTION WIDTH SD 47.2 fL (36.4-46.3); WHITE BLOOD COUNT 5.75 K/uL (4.8-10.8)
[2017-03-28 19:10] LABS: PTT PATIENT 28.7 SECONDS (21.0-31.0)
[2017-03-28] MEDS ORDERED: ASPI81TA28 PO (19:19)
[2017-03-28] MEDS ORDERED: CALC-459 PO (19:19)
[2017-03-28] MEDS ORDERED: LYR/50 PO (19:19)
[2017-03-28] MEDS ORDERED: FEXO1TAB46 PO (19:19)
[2017-03-28] MEDS ORDERED: GLCS500 PO (19:19)
[2017-03-28] MEDS ORDERED: KETO0.0216 OP (19:19)
[2017-03-28 19:35] LABS: ALBUMIN 3.7 gm/dl (3.4-5.0); CALCIUM 8.4 mg/dl (8.5-10.1); CKMB 2.9 ng/ml (0.5-3.6); CREATININE 1.05 mg/dl (0.60-1.20); TOTAL PROTEIN 7.4 gm/dl (6.4-8.2)
[2017-03-28 19:54] LABS: POTASSIUM 4.2 mmol/L (3.5-5.1)
[2017-03-28] MEDS ORDERED: ACETAMINOPHEN 500 MG TAB PO STA (20:22)
--- NOTE | 2017-03-28 21:21 | EMERGENCY ROOM VISIT NOTE ---
History Report prepared by Wai: Irina Membreno Under the Supervision of: Dr. Torrey Dobbs D.O. First contact with patient: 18:10 Chief Complaint: REFERRED BY DOCTOR Stated Complaint: REF BY DR FOR HYPONATREMIA History of Present Illness The patient is a 46 year old female who presents to the Emergency Room with complaints of persistent hyponatremia starting CARGO SURVEYOR. The patient had routine blood work which found that her sodium was 119. She was referred to the ED by her doctor. The patient has a history of hyponatremia which started when she started taking Lyrica several months ago. She states that she has had trouble balancing her creatinine and sodium. She currently does not feel dehydrated. She has a slight headache which she says is typical for her. She is getting briefly lightheaded when she stands up after bending down. She has a history of kidney transplant. She had an aortic valve replacement and pacemaker placed 2 months ago. Source of History: patient Onset: CARGO SURVEYOR Position: other (global) Symptom Intensity: 119 Quality: other (hyponatremia) Timing: other (persistent) Associated Symptoms: + headache Note: Pt reports lightheadedness. Review of Systems See HPI for pertinent positives & negatives. A total of 10 systems reviewed and were otherwise negative. 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 (11) History of pericarditis (12) History of renal calculi (13) Hypertension (14) Hypertensive heart disease (15) Macular degeneration (16) Migraine headache (17) Neurofibromatosis (18) Pancreatic cyst (19) Renal transplant recipient (20) Ulcerative colitis Surgical Problems: (1) Status post -donor kidney transplantation (2) Status post living-donor kidney transplantation Family History Diabetes mellitus Heart disease Hypertension Kidney disease Kidney stones Lung disease Social History Smoking Status: Former Smoker Marital Status: Housing Status: lives with family Occupation Status: employed Current/Historical Medications Scheduled Ascorbic Acid (Ascorbic Acid), 500 MG PO BID Aspirin (Aspirin Ec), 81 MG PO QAM Azathioprine (Imuran), 100 MG PO QAM Biotin (Biotin), 10,000 MCG PO QAM Buspirone Hcl (Buspirone Hcl), 5 MG PO BID Calcium Carbonate-Cholecalcife (Calcium 600+D 600-800 mg-Unit), 1 TAB PO Q12 Cetirizine (Zyrtec), 10 MG PO QAM Cimetidine (Tagamet), 400 MG PO Q12 Cyclosporine (Sandimmune), 250 MG PO AMPM Diphenhydramine Hcl (Benadryl Allergy), 25 MG PO UD Docusate Sodium (Colace), 100 MG PO BID Fexofenadine Hcl (Earnestine), 180 MG PO DAILY Fluticasone Propionate (Nasal) (Flonase Allergy Relief), 2 SPRAY JOEL HS Folic Acid (Folic Acid), 1 MG PO DAILY Glucosamine Sulfate (Glucosamine Sulfate), 1,500 MG PO Q12 Ketotifen Fumarate (Ophth) (Zaditor 0.025% Oph), 1 DROP OP UD Lisinopril (Zestril), 20 MG PO HS Lubiprostone (Amitiza), 24 MCG PO HS Magnesium Chloride (Slow-Mag Tab), 64 MG PO DAILY Melatonin (Melatonin), 10-15 MG PO HS Methocarbamol (Robaxin), 750 MG PO TID Mirtazapine (Remeron), 45 MG PO HS Multivitamin (Multivitamin), 1 TAB PO QAM Delong-3 Fatty Acids (Fish Oil 1200 mg), 1,200 MG PO DAILY Oxcarbazepine (Trileptal), 600 MG PO BID Pantoprazole (Protonix), 40 MG PO BID Prednisone (Prednisone), 2.5 MG PO QAM Pregabalin (Lyrica), 50 MG PO BID Simvastatin (Zocor), 5 MG PO QPM Verapamil Sust Rel (Calan Sr Ext Rel), 240 MG PO Q12 Zolpidem Tartrate (Ambien), 10 MG PO HS Scheduled PRN Diclofenac Sodium (Topical) (Diclofenac Sodium), 1 DOSE TOP TID PRN for Pain Lorazepam (Ativan), 1 MG PO TID PRN for Anxiety Ondansetron Hcl (Zofran), 4 MG PO UD PRN for Nausea Oxycodone Hcl (Oxycodone Hcl), 15 MG PO QID PRN for Pain Polyethylene Glycol 3350 (Miralax), 17 GM PO DAILY PRN for Constipation Rizatriptan Benzoate (Maxalt), 10 MG PO PRN PRN for Headache Sumatriptan Succinate (Imitrex), 100 MG PO UD PRN for Headache Allergies Coded Allergies: Oxycodone (Unverified Allergy, Severe, BLOAT, UNABLE TO EAT, CONSTIPATION , 03/28/17) Morphine (Verified Allergy, Intermediate, HIVES, HAS HAD CODEINE W/O PROBLEM, 03/28/17) HIVES, HAS HAD CODEINE W/O PROBLEM HAS ALSO TOLERATED TRAMADOL Valacyclovir (Unverified Allergy, Intermediate, NAUSEA, VOMITING, DEHYDRATION, 03/28/17) Hydralazine (Verified Allergy, Unknown, HIVES, 03/28/17) Uncoded Allergies: NITRATES (Adverse Reaction, Unknown, MIRAINES, 05/10/15) Physical Exam Vital Signs Date Time Temp Pulse Resp B/P (MAP) Pulse Ox O2 Delivery O2 Flow Rate FiO2 03/28/17 20:20 77 16 120/86 99 Room Air 03/28/17 19:12 71 03/28/17 18:05 36.4 85 17 148/89 99 Room Air Physical Exam CONSTITUTIONAL/VITAL SIGNS: Reviewed / noted above. GENERAL: Non-toxic in appearance. INTEGUMENTARY: Warm, dry, and [place]. HEAD: Normocephalic. EYES: without scleral icterus or trauma. ENT/OROPHARYNX: clear and moist. LYMPHADENOPATHY/NECK: Is supple without lymphadenopathy or meningismus. RESPIRATORY: Lungs clear and equal. CARDIOVASCULAR: Regular rate and rhythm. GI/ABDOMEN: Soft and nontender. No organomegaly or pulsatile mass. No rebound or guarding. Normal bowel sounds. EXTREMITIES: Warm and well perfused. BACK: No CVA tenderness. NEUROLOGICAL: Intact without focal deficits. PSYCHIATRIC: normal affect. MUSCULOSKELETAL: Normally developed with good muscle tone. Medical Decision & Procedures ER Provider Diagnostic Interpretation: X ray results and stated below per my interpretation and radiology interpretation. SINGLE VIEW CHEST CLINICAL HISTORY: Change in mental status. Hyponatremia. FINDINGS: An AP, portable, upright chest radiograph is compared to study dated 02/15/2017. The examination is degraded by portable technique and patient rotation. The patient is status post midline sternotomy and aortic valve replacement. A 2-lead cardiac pacemaker partially obscures the left upper chest. The heart is enlarged and there is atherosclerotic calcification of the thoracic aorta. The pulmonary vasculature is noncongested. No airspace consolidation, large pleural effusion, or pneumothorax is seen. The skeletal structures are osteopenic. The bony thorax is grossly intact. IMPRESSION: 1. Cardiomegaly and cardiac pacemaker. There is no radiographic evidence of congestive failure. 2. No airspace consolidation or large pleural effusion is identified. Electronically signed by: Ray Goff M.D. 03/28/2017 6:33 PM Dictated Date/Time: 03/28/2017 6:32 PM Laboratory Results 03/28/17 18:46 Red Blood Count 3.88, Mean Corpuscular Volume 85.1, Mean Corpuscular Hemoglobin 30.7, Mean Corpuscular Hemoglobin Concent 36.1, Mean Platelet Volume 9.2, Neutrophils (%) (Auto) 55.8, Lymphocytes (%) (Auto) 28.5, Monocytes (%) (Auto) 11.5, Eosinophils (%) (Auto) 3.3, Basophils (%) (Auto) 0.7, Neutrophils # (Auto ) 3.21, Lymphocytes # (Auto) 1.64, Monocytes # (Auto) 0.66, Eosinophils # (Auto ) 0.19, Basophils # (Auto) 0.04 03/28/17 18:46 Test 03/28/17 18:46 03/28/17 20:00 03/28/17 21:09 White Blood Count 5.75 K/uL (4.8-10.8) Red Blood Count 3.88 M/uL (4.2-5.4) Hemoglobin 11.9 g/dL (12.0-16.0) Hematocrit 33.0 % (37-47) Mean Corpuscular Volume 85.1 fL (80-100) Mean Corpuscular Hemoglobin 30.7 pg (25-34) Mean Corpuscular Hemoglobin Concent 36.1 g/dl (32-36) Platelet Count 322 K/uL (130-400) Mean Platelet Volume 9.2 fL (7.4-10.4) Neutrophils (%) (Auto) 55.8 % Lymphocytes (%) (Auto) 28.5 % Monocytes (%) (Auto) 11.5 % Eosinophils (%) (Auto) 3.3 % Basophils (%) (Auto) 0.7 % Neutrophils # (Auto) 3.21 K/uL (1.4-6.5) Lymphocytes # (Auto) 1.64 K/uL (1.2-3.4) Monocytes # (Auto) 0.66 K/uL (0.11-0.59) Eosinophils # (Auto) 0.19 K/uL (0-0.5) Basophils # (Auto) 0.04 K/uL (0-0.2) RDW Standard Deviation 47.2 fL (36.4-46.3) RDW Coefficient of Variation 15.3 % (11.5-14.5) Immature Granulocyte % (Auto) 0.2 % Immature Granulocyte # (Auto) 0.01 K/uL (0.00-0.02) Prothrombin Time 10.6 SECONDS (9.0-12.0) Prothromb Time International Ratio 1.0 (0.9-1.1) Activated Partial Thromboplast Time 28.7 SECONDS (21.0-31.0) Partial Thromboplastin Ratio 1.1 Anion Gap 6.0 mmol/L (3-11) Est Creatinine Clear Calc Drug Dose 53.5 ml/min Estimated GFR () 74.3 Estimated GFR (Non- 64.1 BUN/Creatinine Ratio 16.1 (10-20) Calcium Level 8.4 mg/dl (8.5-10.1) Magnesium Level 1.5 mg/dl (1.8-2.4) Total Bilirubin 0.5 mg/dl (0.2-1) Direct Bilirubin 0.2 mg/dl (0-0.2) Aspartate Amino Transf (AST/SGOT) 24 U/L (15-37) Alanine Aminotransferase (ALT/SGPT) 17 U/L (12-78) Alkaline Phosphatase 71 U/L (45-117) Total Creatine Kinase 53 U/L (26-192) Creatine Kinase MB 2.9 ng/ml (0.5-3.6) Creatine Kinase MB Ratio 5.5 (0-3.0) Troponin I 0.022 ng/ml (0-0.045) Total Protein 7.4 gm/dl (6.4-8.2) Albumin 3.7 gm/dl (3.4-5.0) Lipase 135 U/L (73-393) Urine Color YELLOW Urine Appearance CLEAR (CLEAR) Urine pH 7.5 (4.5-7.5) Urine Specific [place] 1.009 (1.000-1.030) Urine Protein NEG (NEG) Urine Glucose (UA) NEG (NEG) Urine Ketones NEG (NEG) Urine Occult Blood NEG (NEG) Urine Nitrite NEG (NEG) Urine Bilirubin NEG (NEG) Urine Urobilinogen NEG (NEG) Urine Leukocyte Esterase NEG (NEG) Urine WBC (Auto) 0 /hpf (0-5) Urine RBC (Auto) 0-4 /hpf (0-4) Urine Hyaline Casts (Auto) 0 /lpf (0-5) Urine Epithelial Cells (Auto) 0-5 /lpf (0-5) Urine Bacteria (Auto) NEG (NEG) Laboratory results as stated above per my review. Medications Administered Medications (Trade) Dose Ordered Sig/Jose G Route Start Time Stop Time Status Last Admin Dose Admin Sodium Chloride 1,000 ml @ 999 mls/hr Q1H1M STAT IV 03/28/17 18:18 03/28/17 19:18 DC 03/28/17 18:53 999 MLS/HR Acetaminophen (Tylenol Tab) 1,000 mg NOW STAT PO 03/28/17 20:22 03/28/17 20:23 DC 03/28/17 20:25 1,000 MG ECG Indication: other Rate (beats per minute): 78 Rhythm: other (ventricular paced) Findings: no ectopy, other (no acute injury) Comparison ECG Date: 15-Feb-2017 Change: no significant change Change: Patient's electrocardiogram interpreted by me. ED Course 1811: Previous medical records were reviewed. The patient was evaluated in room C3. A complete history and physical examination was performed. 1817: NSS 1000 ml @ 999 mls/hr IV. 2021: Acetaminophen 1000 mg PO. 2101: I discussed the patient's case with Dr. Ellison, [facility] hospitalist. The patient will be evaluated for further treatment and disposition. 2105: On reevaluation, the patient is resting comfortably. I discussed the results and findings with her. She verbalized agreement of the treatment plan. The patient will be evaluated for further management and care. Medical Decision Differential includes acute coronary syndrome, myocardial infarction, CVA, TIA, anemia, infection, pneumonia, UTI, pyelonephritis, poor nutrition, dehydration, electrolyte disturbance,hypoglycemia. This is a 46-year-old female who presents to the ED with a chief complaint of hyponatremia. The patient states that she had outpatient blood work done earlier today that revealed a sodium of 119. The patient is chronically on liter care for the past several months. She states that her sodium seem to be decreasing related to this. She reports a slight headache and some dizziness. She denies any recent illness, fevers or chills. No vomiting or diarrhea. The patient does have a history of kidney transplant in 1990. Her exam was unremarkable. Her vital signs are stable. Sodium here today is 122. Magnesium was 1.5. Urine did not show infection. CBC is unremarkable and a chest x-ray did not show acute disease. The patient was told the results of tests. She will be seen by the hospitalist service for further inpatient evaluation and care. Medication Reconcilliation Current Medication List: was personally reviewed by me Blood Pressure Screening Patient's blood pressure: Normal blood pressure Blood pressure disposition: Did not require urgent referral Consults Time Called: 2099 Consulting Physician: Dr. Ellison [facility] hospitalist Returned Call: [phone] Discussed the patient's case. The patient will be evaluated for further treatment and disposition. Impression Primary Impression: Hyponatremia Additional Impressions: Headache Lightheadedness Scribe Attestation The scribe's documentation has been prepared under my direction and personally reviewed by me in its entirety. I confirm that the note above accurately reflects all work, treatment, procedures, and medical decision making performed by me. Departure Information Dispostion Being Evaluated By Hospitalist Referrals Stuart Ravi M.D. (PCP) Patient Instructions [facility] Problem Qualifiers
[2017-03-28 21:36] LABS: OSMOLALITY,URINE 235 mOms/kg (500-800)
[2017-03-28 21:40] LABS: SODIUM RANDOM URINE 68 mEq/L
[2017-03-28] MEDS ORDERED: ZOLPIDEM TARTRATE 10 MG TAB PO ONE ×2 (22:01)
[2017-03-28] MEDS ORDERED: METHOCARBAMOL 750 MG TAB PO ONE (22:01)
[2017-03-28] MEDS ORDERED: FLUTICASONE PROPIONATE NA SPR 16 GM BTL NAE ONE (22:01)
[2017-03-28] MEDS ORDERED: LUBIPROSTONE 8 MCG CAP PO ONE (22:01)
[2017-03-28] MEDS ORDERED: PREGABALIN 50 MG CAP PO ONE ×2 (22:01)
[2017-03-28 22:13] VITALS: BP 152/94; PULSE 81; TEMP 36.6; O2SAT 98; Ht 157.5 cm; Wt 49.8 kg
[2017-03-28] MEDS ORDERED: NITROGLYCERIN 0.4 MG SL PER TAB CHARGE SL PRN (22:15)
[2017-03-28] MEDS ORDERED: LORAZEPAM 1 MG TAB PO PRN (22:15)
[2017-03-28] MEDS ORDERED: RIZATRIPTAN BENZOATE 10 MG TAB PO PRN (22:15)
[2017-03-28] MEDS ORDERED: PROCHLORPERAZINE INJ 5 MG in SYRINGE 4 ML IV PRN (22:15)
[2017-03-28] MEDS ORDERED: ACETAMINOPHEN 325 MG TAB PO PRN (22:15)
[2017-03-28] MEDS ORDERED: POLYETHYLENE (MIRALAX) 17 GM PACK PO PRN (22:30)
[2017-03-28] MEDS ORDERED: MIRTAZAPINE TAB 15 MG TAB PO STA (22:32)
[2017-03-29] VITALS (8 sets, daily range): BP systolic 118–150; BP diastolic 76–101; PULSE 63–80; TEMP 36.3–37.1; O2SAT 97–99
[2017-03-29] MEDS: MAGNESIUM SULFATE 1GM / D5W 1 GM in PREMIXED IN D5W 100 ML IV SCH ×2 (00:31→00:32)
--- NOTE | 2017-03-29 00:43 | HISTORY & PHYSICAL EXAMINATION ---
DATE OF ADMISSION: 03/28/2017 PATIENT'S PRIMARY CARE DOCTOR: Stuart Ravi MD. CHIEF COMPLAINT: Hyponatremia. HISTORY OF PRESENT ILLNESS: History obtained from patient and records. Medical history significant for hypertension, chronic anemia, chronic pain, chronic hyponatremia, ulcerative colitis as per records, history of AVR/aortic root repair replacement, complete heart block status post pacemaker placement, CRI status post kidney transplantation on immunosuppression therapy, history of cold agglutinin disease, past tobacco abuse, history of pulmonary nodules, history of DVT status post anticoagulation. Recent confinement last month for ARF, hyponatremia. Patient had a sodium of 127, creatinine of 1.9 on admission. Px was on fluid restriction for a short time. Outpatient blood work done on 03/16/2017 showed sodium 125, creatinine 1.9. PCP saw blood work a few days ago. Repeat blood work requested. Sodium noted to be 119, normal creatinine. Patient denies headache, dizziness, chest pain, shortness of breath. Denies weight gain/overt fluid retention. Patient directed to Emergency Room. At the ER, a liter of NSS was administered. r. MEDICAL HISTORY: As above. She had an outpatient CT thorax on 01/09/2017 showed scattered multiple bilateral ground-glass opacity nodules, the largest measuring 1.6 cm, nonspecific most likely representing infectious vs inflammatory. Follow-up CT chest recommended in 3-6 months to document resolution/interval change. SURGERIES: She has had renal transplant, pacemaker placement, aortic valve replacement, aortic root repair, dental surgery, urologic procedures, tonsillectomy, adenoidectomy. HOME MEDICATIONS: Include ascorbic acid, aspirin, Imuran, buspirone, biotin, Tagamet, cyclosporine, calcium carbonate, Zyrtec, Benadryl, Colace, diclofenac, Earnestine, Flonase, folic acid, glucosamine, Zaditor, Ativan, Amitiza, Zestril, melatonin, Remeron, Robaxin, multivitamins, Zofran, oxycodone, fish oil, Trileptal, MiraLax, Lyrica, prednisone, Protonix, Maxalt, Imitrex, Zocor, Calan, Ambien. ALLERGIES: HYDRALAZINE, MORPHINE, OXYCONTIN, VALACYCLOVIR. FAMILY HISTORY: Diabetes and heart disease. PERSONAL AND SOCIAL HISTORY: Past tobacco abuse. No chronic intake of alcoholic beverages. RN. REVIEW OF SYSTEMS: As per HPI. All 10 systems reviewed. All other ROS negative. PHYSICAL EXAMINATION: VITAL SIGNS: Blood pressure noted to be 110/80, pulse rate 70, RR 18, temperature 36.6, sats 98 on room air. GENERAL: Noted to be comfortable, no respiratory distress. SKIN: Pallor. Warm. HEENT: Pale palpebral conjunctiva. No ptosis. Dry mucosa. NECK: Supple. No tenderness. CHEST: Clear to auscultation. Healed sternal scar. HEART: Regular rate and rhythm. Systolic murmur. ABDOMEN: Soft, nontender. EXTREMITIES: Minimal LE edema, no tenderness. No gross deformities. NEUROLOGIC: Coherent. No gross focality. LABORATORY DATA: Hemoglobin was noted to be 11.9, hematocrit 30, white blood cells 5.7, platelets 222. Sodium 122, potassium 4.2, chloride 89, CO2 21, BUN 12, creatinine 1, glucose was noted to be 99. Chest x-ray showed cardiomegaly, cardiac pacemaker. UA epithelial cells ASSESSMENT: 1. Acute on chronic hyponatremia unclear precipitant. 2. Hypertension, stable. 3. Chronic pain, symptoms at baseline 4. History of kidney transplant on immunosuppression therapy. 5. hx IBD. 6. recent hx AVR/aortic root repair (), healing well. 7. hx CHB sp PPM 8. Multiple lung nodules on outpatient CT chest 12/2016 9. Past tobacco abuse. 10. Chronic anemia, hx hemolytic anemia, hemoglobin at baseline 5. 11. hx DVT sp NOAC tx PLAN: PCU. Careful correction of sodium. Fluid restriction for now. Nephrology consult RE hyponatremia, PX due for follow-up CT chest study for pulmonary nodules next week. DVT prophylaxis with Lovenox subQ. Full code. MTDD
[2017-03-29] MEDS ORDERED: PREGABALIN 50 MG CAP PO ONE (01:00)
[2017-03-29] MEDS ORDERED: ZOLPIDEM TARTRATE 10 MG TAB PO ONE (01:00)
[2017-03-29] MEDS: OXYCODONE HCL IR 5 MG TAB (IMMEDIATE RELEASE) PO PRN ×4 (01:03→21:34)
[2017-03-29 06:33] LABS: BASO % 0.8 %; BASO ABS # 0.05 K/uL (0-0.2); EOS % 6.1 %; EOS ABS # 0.36 K/uL (0-0.5); HEMOGLOBIN 11.4 g/dL (12.0-16.0); IG# 0.01 K/uL (0.00-0.02); MEAN CELL VOLUME 85.1 fL (80-100); MEAN CORPUSCULAR HEMOGLOBIN 30.3 pg (25-34); MEAN CORPUSCULAR HGB CONC 35.6 g/dl (32-36); MEAN PLATELET VOLUME 9.2 fL (7.4-10.4); MONO % 11.2 %; MONO ABS # 0.66 K/uL (0.11-0.59); NEUT % 37.7 %; NEUT ABS # 2.23 K/uL (1.4-6.5); PLATELET COUNT 295 K/uL (130-400); RED CELL DISTRIBUTION WIDTH CV 15.5 % (11.5-14.5); RED CELL DISTRIBUTION WIDTH SD 47.9 fL (36.4-46.3); WHITE BLOOD COUNT 5.91 K/uL (4.8-10.8)
[2017-03-29 07:08] LABS: CALCIUM 8.7 mg/dl (8.5-10.1); CREATININE 0.79 mg/dl (0.60-1.20); POTASSIUM 4.1 mmol/L (3.5-5.1)
[2017-03-29] MEDS ORDERED: SODIUM CHLORIDE 0.9% 1000ML 1,000 ML IV ONE (07:45)
[2017-03-29] MEDS: CETIRIZINE HCL 10 MG TAB PO SCH (08:22)
[2017-03-29] MEDS: PREGABALIN 50 MG CAP PO SCH ×2 (08:22→22:38)
[2017-03-29] MEDS: AZATHIOPRINE 50 MG TAB PO SCH (08:22)
[2017-03-29] MEDS: PANTOprazole SOD 40 MG TAB PO SCH ×2 (08:23→20:31)
[2017-03-29] MEDS: ASPIRIN 81 MG ECTAB PO SCH (08:23)
[2017-03-29] MEDS: METHOCARBAMOL 750 MG TAB PO SCH ×3 (08:23→20:26)
[2017-03-29] MEDS: CYCLOSPORINE 100 MG PO SCH ×2 (08:23→20:29)
[2017-03-29] MEDS: CycloSPORINE (SANDIMMUNE) 25 MG CAP PO SCH ×2 (08:24→20:38)
[2017-03-29] MEDS: VERAPAMIL HCL 240 MG TABCR PO SCH ×2 (08:25→20:31)
[2017-03-29] MEDS: FEXOFENADINE HCL 180 MG TAB PO SCH (08:25)
[2017-03-29] MEDS: DOCUSATE SODIUM 100 MG CAP PO SCH ×2 (08:25→20:24)
[2017-03-29] MEDS: OXCARBAZEPINE 150 MG TAB PO SCH ×2 (08:26→20:34)
[2017-03-29] MEDS: CIMETIDINE 400 MG TAB PO SCH ×2 (08:26→20:27)
[2017-03-29] MEDS: ENOXAPARIN 40 MG/0.4 ML SYR SC SCH (08:26)
[2017-03-29] MEDS: MULTIVITAMIN TAB PO SCH (08:26)
[2017-03-29] MEDS: MAGNESIUM CHLORIDE 64MG DELAYED REL TAB PO SCH (08:26)
[2017-03-29] MEDS: SODIUM CHLORIDE 1 GM TAB PO SCH ×2 (16:12→20:33)
--- NOTE | 2017-03-29 19:22 | NEPHROLOGY CONSULTATION ---
DATE OF CONSULTATION: 03/29/2017 ATTENDING OF RECORD: Dr. Ellison. REASON FOR CONSULTATION: Hyponatremia. This is a 46-year-old female with history of kidney transplant from a donor, on chronic immunosuppressive therapy, who had a history of a recent aortic valve replacement with aortic root repair, also has a pacemaker secondary to history of complete heart block and deals with chronic pain. Also has underlying hypertension as well. The patient has had relative fluid restriction of under 2 liters which she was following and had some worsening headaches. Had routine lab work for her primary care doctor, which showed sodium level of 119. Prior to that, her sodium level was 125 with a creatinine of 1.9 and now her creatinine has normalized. The patient was put on free water fluid restriction and started on low rate of normal saline. Sodium levels are slowly improving. Sodium level was 122 last night, it went up to 126 this morning and is still 126. The patient feels good, urinating well as well. PAST MEDICAL HISTORY: Complete heart block, ulcerative colitis, chronic pain, hypertension, history of DVT in the past. PAST SURGICAL HISTORY: Renal transplant, pacemaker, aortic valve replacement, aortic root repair, tonsillectomy. FAMILY HISTORY: Significant for diabetes and heart disease. SOCIAL HISTORY: Past tobacco use. No alcohol, no drugs. REVIEW OF SYSTEMS: Chronic headaches. No blurry vision, no dysphagia, no chest pain, no shortness of breath. No nausea or vomiting. Positive chronic constipation. No dysuria or hematuria. Positive chronic pain, mostly in the neck and upper shoulders. All other review of systems otherwise negative. CURRENT MEDICATIONS: Flonase 2 sprays at night, lisinopril 20 mg at night, Zocor 5 mg a day, Ambien 10 mg at night, Remeron 45 mg at night, Lovenox 40 mg subQ daily, aspirin 81 mg a day, Imuran 100 mg daily, BuSpar 5 mg p.o. b.i.d., Zyrtec 10 mg daily, Tagamet 400 mg p.o. q. 12, cyclosporine 200 mg p.o. b.i.d., Colace 100 mg p.o. b.i.d., folic acid 1 mg daily, Earnestine 180 mg daily, Slow-Mag 64 mg daily, Robaxin 750 mg p.o. t.i.d., multivitamin daily, Trileptal 600 mg p.o. b.i.d., Protonix 40 mg p.o. b.i.d., prednisone 2.5 mg daily, Lyrica 50 mg p.o. b.i.d., verapamil 240 mg in the morning, normal saline at 60 mL an hour. PHYSICAL EXAMINATION: VITAL SIGNS: Temperature 36.8, pulse 72, respiratory rate 18, blood pressure is 124/83, satting 98% on room air. GENERAL: Awake, alert, oriented x3. EYES: No scleral icterus. ENT: Moist mucous membranes. NECK: Supple. PULMONARY: Clear to auscultation. CARDIAC: Regular rate and rhythm. ABDOMEN: Bowel sounds positive, soft, nontender, nondistended. EXTREMITIES: No clubbing, cyanosis or edema. NEUROLOGICAL: Nonfocal. DERMATOLOGIC: No rash or ulcers noted. LABORATORIES: Reviewed. IMPRESSION AND PLAN: Hyponatremia in the setting of chronic pain as well as medications which she is on chronically and may also be contributing to hyponatremia. We have been trying to control her pain as an outpatient and unable to wean her off certain medications that may be contributing to her low sodium, so trying to treat with relative fluid restriction. Given the fact that sodium levels continue to drop on fluid restriction alone, feel worthwhile to consider starting sodium chloride 1 gram p.o. b.i.d. As long as her sodium levels continue to improve tomorrow, okay from the renal standpoint to discharge tomorrow with repeat BMP on Sunday. Would continue the fluid restriction and salt tablets 1 gram p.o. b.i.d. As an outpatient, hesitant to give Lasix in this patient. Would rather do fluid restriction with the salt tablets. Okay with continuing normal saline at 60 mL an hour. Based on the urine osmolality of under 300, sodium levels should continue to improve and likely stop IV fluids tomorrow, and if medically cleared, okay to tentatively plan for discharge tomorrow. I appreciate consultation. ELE
--- NOTE | 2017-03-29 19:54 | Progress Note ---
Medicine Progress Note Date & Time of Visit: Mar 29, 2017 at 19:00 . Subjective CC: Follow-up visit for hyponatremia. HPI: Admitted for severe hyponatremia. Feels well. No confusion, weakness. Mild frontal headache. No nausea, vomiting, diarrhea. ROS: General- no fever, no chills Resp- no cough; no shortness of breath Cardiac- no chest pain, no edema GI- as noted above in HPI - no dysuria, no difficulty voiding . Objective Last 8 Hrs Date Time Temp Pulse Resp B/P (MAP) Pulse Ox O2 Delivery O2 Flow Rate FiO2 03/29/17 16:00 97 Room Air 03/29/17 15:48 36.7 70 16 145/91 (109) 97 Room Air 03/29/17 12:00 Room Air Physical Exam: General- no distress Lungs- clear to auscultation; no respiratory distress Cardiovascular- RRR, II/ systolic murmur at base, no gallop; no JVD; no pretibial edema Abdomen- + BS, soft, nontender Extremities- no cyanosis; no calf tenderness Neuro- alert, oriented Skin- warm & dry . Laboratory Results: Last 24 Hours Test 03/28/17 20:00 03/28/17 22:25 03/29/17 06:08 03/29/17 12:07 Urine Color YELLOW Urine Appearance CLEAR Urine pH 7.[address] [place] 1.009 Urine Protein NEG Urine Glucose (UA) NEG Urine Ketones NEG Urine Occult Blood NEG Urine Nitrite NEG Urine Bilirubin NEG Urine Urobilinogen NEG Urine Leukocyte Esterase NEG Urine WBC (Auto) 0 /hpf Urine RBC (Auto) 0-4 /hpf Urine Hyaline Casts (Auto) 0 /lpf Urine Epithelial Cells (Auto) 0-5 /lpf Urine Bacteria (Auto) NEG Urine Osmolality 235 mOms/kg Urine Random Sodium 68 mEq/L Sodium Level 125 mmol/L 126 mmol/L 126 mmol/L Thyroid Stimulating Hormone (TSH) 2.130 uIu/ml White Blood Count 5.91 K/uL Red Blood Count 3.76 M/uL Hemoglobin 11.4 g/dL Hematocrit 32.0 % Mean Corpuscular Volume 85.1 fL Mean Corpuscular Hemoglobin 30.3 pg Mean Corpuscular Hemoglobin Concent 35.6 g/dl Platelet Count 295 K/uL Mean Platelet Volume 9.2 fL Neutrophils (%) (Auto) 37.7 % Lymphocytes (%) (Auto) 44.0 % Monocytes (%) (Auto) 11.2 % Eosinophils (%) (Auto) 6.1 % Basophils (%) (Auto) 0.8 % Neutrophils # (Auto) 2.23 K/uL Lymphocytes # (Auto) 2.60 K/uL Monocytes # (Auto) 0.66 K/uL Eosinophils # (Auto) 0.36 K/uL Basophils # (Auto) 0.05 K/uL RDW Standard Deviation 47.9 fL RDW Coefficient of Variation 15.5 % Immature Granulocyte % (Auto) 0.2 % Immature Granulocyte # (Auto) 0.01 K/uL Potassium Level 4.1 mmol/L Chloride Level 94 mmol/L Carbon Dioxide Level 23 mmol/L Anion Gap 9.0 mmol/L Blood Urea Nitrogen 15 mg/dl Creatinine 0.79 mg/dl Est Creatinine Clear Calc Drug Dose 71.1 ml/min Estimated GFR () 104.8 Estimated GFR (Non- 90.4 BUN/Creatinine Ratio 19.5 Random Glucose 98 mg/dl Calcium Level 8.7 mg/dl Magnesium Level 2.2 mg/dl Test 03/29/17 18:14 Sodium Level 128 mmol/L Assessment & Plan HYPONATREMIA Serum sodium at time of admission was 122. Urine osm 235. Appears to be euvolemic. Hyponatremia probably multifactorial. Suspect SIADH; mirtazapine may be contributing factor. Nephrology consulted. Fluid restriction and NaCl recommended. Receiving IV NSS with slow correction. S/P AVR Doing well postop. HYPERTENSION Continue usual meds. S/P RENAL TRANSPLANT Continue usual regimen. CHRONIC PAIN Continue usual regimen. VTE PROPHYLAXIS SQ enoxaparin. Ambulate. DISPOSITION Expected discharge to home. Family Medicine follow-up with Dr. Ravi. . Current Inpatient Medications: Current Inpatient Medications Medications (Trade) Dose Ordered Sig/Jose G Route Start Time Stop Time Status Last Admin Dose Admin Enoxaparin Sodium (Lovenox Inj) 40 mg Q24H SC 03/29/17 09:00 04/28/17 08:59 Acetaminophen (Tylenol Tab) 650 mg Q4H PRN PO 03/28/17 22:15 04/27/17 22:14 03/29/17 16:23 650 MG Nitroglycerin (Nitrostat Tab) 0.4 mg UD PRN SL 03/28/17 22:15 04/27/17 22:14 Aspirin (Ecotrin Tab) 81 mg QAM PO 03/29/17 09:00 04/28/17 08:59 03/29/17 08:23 81 MG Azathioprine (Imuran Tab) 100 mg QAM PO 03/29/17 09:00 04/28/17 08:59 03/29/17 08:22 100 MG Buspirone HCl (Buspar Tab) 5 mg BID PO 03/29/17 09:00 04/28/17 08:59 03/29/17 08:25 5 MG Cetirizine HCl (zyrTEC TAB) 10 mg QAM PO 03/29/17 09:00 04/28/17 08:59 03/29/17 08:22 10 MG Cimetidine (Tagamet Tab) 400 mg Q12 PO 03/29/17 09:00 04/28/17 08:59 03/29/17 08:26 400 MG Cyclosporine (Sandimmune Cap) 200 mg BID PO 03/29/17 09:00 04/28/17 08:59 03/29/17 08:23 200 MG Docusate Sodium (coLACE CAP) 100 mg BID PO 03/29/17 09:00 04/28/17 08:59 03/29/17 08:25 100 MG Fexofenadine HCl (Earnestine Tab) 180 mg DAILY PO 03/29/17 09:00 04/28/17 08:59 03/29/17 08:25 180 MG Fluticasone Propionate (Flonase Nasal [place]) 2 sprays HS JOEL 03/29/17 21:00 04/28/17 20:59 Folic Acid (Folvite Tab) 1 mg DAILY PO 03/29/17 09:00 04/28/17 08:59 03/29/17 08:25 1 MG Lisinopril (Zestril Tab) 20 mg HS PO 03/29/17 21:00 04/28/17 20:59 Lorazepam (Ativan Tab) 1 mg TID PRN PO 03/28/17 22:15 04/27/17 22:14 Magnesium Chloride (Slow-Mag Tab) 64 mg DAILY PO 03/29/17 09:00 04/28/17 08:59 03/29/17 08:26 64 MG Methocarbamol (Robaxin Tab) 750 mg TID PO 03/29/17 09:00 04/28/17 08:59 03/29/17 14:35 750 MG Multivitamins (Multivitamin Tab) 1 tab QAM PO 03/29/17 09:00 04/28/17 08:59 03/29/17 08:26 1 TAB Oxcarbazepine (Trileptal Tab) 600 mg BID PO 03/29/17 09:00 04/28/17 08:59 03/29/17 08:26 600 MG Pantoprazole Sodium (Protonix Tab) 40 mg BID PO 03/29/17 09:00 04/28/17 08:59 03/29/17 08:23 40 MG Prednisone (PredniSONE TAB) 2.5 mg QAM PO 03/29/17 09:00 04/28/17 08:59 03/29/17 08:26 2.5 MG Pregabalin (Lyrica Cap) 50 mg BID PO 03/29/17 09:00 04/28/17 08:59 03/29/17 08:22 50 MG Rizatriptan Benzoate (Maxalt Tab) 10 mg PRN PRN PO 03/28/17 22:15 04/27/17 22:14 Simvastatin (Zocor Tab) 5 mg QPM PO 03/29/17 21:00 04/28/17 20:59 Verapamil HCl (Calan-Sr Tab) 240 mg Q12 PO 03/29/17 09:00 04/28/17 08:59 03/29/17 08:25 240 MG Zolpidem Tartrate (Ambien Tab) 10 mg HS PO 03/29/17 21:00 04/28/17 20:59 Oxycodone HCl (Roxicodone Immediate Rel Tab) 15 mg QID PRN PO 03/28/17 22:15 04/27/17 22:14 03/29/17 14:34 15 MG Polyethylene (Miralax Powder Packet) 17 gm DAILY PRN PO 03/28/17 22:30 04/27/17 22:29 Prochlorperazine Edisylate 5 mg/ Syringe 5 ml @ 5 mls/min Q6H PRN IV 03/28/17 22:15 04/27/17 22:14 Cyclosporine (Sandimmune Cap) 50 mg BID PO 03/29/17 09:00 04/28/17 08:59 03/29/17 08:24 50 MG Mirtazapine (Remeron Tab) 45 mg HS PO 03/29/17 21:00 04/28/17 20:59 Lubiprostone (Amitiza) 24 mcg HS PO 03/29/17 21:00 04/28/17 20:59 Sodium Chloride 1,000 ml @ 60 mls/hr [id number] ONCE IV 03/29/17 07:45 03/30/17 00:24 03/29/17 08:21 60 MLS/HR Sodium Chloride (Sodium Chloride Tab) 1 gm BID PO 03/29/17 15:15 04/28/17 15:14 03/29/17 16:12 1 GM
[2017-03-29] MEDS ORDERED: SIMVASTATIN 5 MG TAB PO SCH (21:00)
[2017-03-29] MEDS ORDERED: LISINOPRIL 20 MG TAB PO SCH (21:00)
[2017-03-29] MEDS ORDERED: FLUTICASONE PROPIONATE NA SPR 16 GM BTL NAE SCH (21:00)
[2017-03-29] MEDS ORDERED: ZOLPIDEM TARTRATE 10 MG TAB PO SCH (21:00)
[2017-03-29] MEDS ORDERED: LUBIPROSTONE 8 MCG CAP PO SCH (21:00)
[2017-03-29] MEDS ORDERED: MIRTAZAPINE TAB 15 MG TAB PO SCH (21:00)
[2017-03-30 04:24] VITALS: BP 133/89; PULSE 74; TEMP 36.8; O2SAT 99
[2017-03-30] MEDS: OXYCODONE HCL IR 5 MG TAB (IMMEDIATE RELEASE) PO PRN ×3 (04:31→16:54)
[2017-03-30 06:50] LABS: CALCIUM 8.6 mg/dl (8.5-10.1); CREATININE 0.84 mg/dl (0.60-1.20); POTASSIUM 3.8 mmol/L (3.5-5.1)
[2017-03-30 07:11] VITALS: BP 126/86; PULSE 71; TEMP 36.6; O2SAT 94
--- NOTE | 2017-03-30 07:17 | Nephrology Progress Note ---
Nephrology Progress Note Date of Service: Mar 30, 2017. Subjective 46 yo female with hx of renal transplant who has recurrent hyponatremia. on medications to help control pain and mood which are important and necessary for her and may be contributing to her hyponatremia. pts migraine is better and feels better today. started on salt tablets as well. Objective Date Time Temp Pulse Resp B/P (MAP) Pulse Ox O2 Delivery O2 Flow Rate FiO2 03/30/17 04:24 36.8 74 18 133/89 (104) 99 Room Air 03/30/17 04:02 Room Air 03/30/17 00:05 Room Air 03/29/17 23:44 37.1 80 19 150/90 (110) 98 Room Air 03/29/17 20:11 36.7 76 16 141/101 (114) 98 Room Air 144/96 (112) 03/29/17 20:00 Room Air 03/29/17 16:00 97 Room Air 03/29/17 15:48 36.7 70 16 145/91 (109) 97 Room Air 03/29/17 12:00 Room Air 03/29/17 10:56 36.8 72 18 124/83 (97) 98 Room Air 03/29/17 08:00 Room Air 03/29/17 08:00 36.9 72 16 130/83 (99) 97 Room Air Physical Exam: General-aaox3 Eyes-no scleral icterus ENT-mmm Neck-supple Lungs-cta Heart-rrr Abdomen-bs+ s/nt/nd Extremities-no c/c/e Neuro-nonfocal Current Inpatient Medications Medications (Trade) Dose Ordered Sig/Jose G Route Start Time Stop Time Status Last Admin Dose Admin Enoxaparin Sodium (Lovenox Inj) 40 mg Q24H SC 03/29/17 09:00 04/28/17 08:59 Acetaminophen (Tylenol Tab) 650 mg Q4H PRN PO 03/28/17 22:15 04/27/17 22:14 03/29/17 16:23 650 MG Nitroglycerin (Nitrostat Tab) 0.4 mg UD PRN SL 03/28/17 22:15 04/27/17 22:14 Aspirin (Ecotrin Tab) 81 mg QAM PO 03/29/17 09:00 04/28/17 08:59 03/29/17 08:23 81 MG Azathioprine (Imuran Tab) 100 mg QAM PO 03/29/17 09:00 04/28/17 08:59 03/29/17 08:22 100 MG Buspirone HCl (Buspar Tab) 5 mg BID PO 03/29/17 09:00 04/28/17 08:59 03/29/17 20:24 5 MG Cetirizine HCl (zyrTEC TAB) 10 mg QAM PO 03/29/17 09:00 04/28/17 08:59 03/29/17 08:22 10 MG Cimetidine (Tagamet Tab) 400 mg Q12 PO 03/29/17 09:00 04/28/17 08:59 03/29/17 20:27 400 MG Cyclosporine (Sandimmune Cap) 200 mg BID PO 03/29/17 09:00 04/28/17 08:59 03/29/17 20:29 200 MG Docusate Sodium (coLACE CAP) 100 mg BID PO 03/29/17 09:00 04/28/17 08:59 03/29/17 20:24 100 MG Fexofenadine HCl (Earnestine Tab) 180 mg DAILY PO 03/29/17 09:00 04/28/17 08:59 03/29/17 08:25 180 MG Fluticasone Propionate (Flonase Nasal [place]) 2 sprays HS JOEL 03/29/17 21:00 04/28/17 20:59 03/29/17 20:21 2 SPRAYS Folic Acid (Folvite Tab) 1 mg DAILY PO 03/29/17 09:00 04/28/17 08:59 03/29/17 08:25 1 MG Lisinopril (Zestril Tab) 20 mg HS PO 03/29/17 21:00 04/28/17 20:59 03/29/17 20:30 20 MG Lorazepam (Ativan Tab) 1 mg TID PRN PO 03/28/17 22:15 04/27/17 22:14 03/30/17 01:15 1 MG Magnesium Chloride (Slow-Mag Tab) 64 mg DAILY PO 03/29/17 09:00 04/28/17 08:59 03/29/17 08:26 64 MG Methocarbamol (Robaxin Tab) 750 mg TID PO 03/29/17 09:00 04/28/17 08:59 03/29/17 20:26 750 MG Multivitamins (Multivitamin Tab) 1 tab QAM PO 03/29/17 09:00 04/28/17 08:59 03/29/17 08:26 1 TAB Oxcarbazepine (Trileptal Tab) 600 mg BID PO 03/29/17 09:00 04/28/17 08:59 03/29/17 20:34 600 MG Pantoprazole Sodium (Protonix Tab) 40 mg BID PO 03/29/17 09:00 04/28/17 08:59 03/29/17 20:31 40 MG Prednisone (PredniSONE TAB) 2.5 mg QAM PO 03/29/17 09:00 04/28/17 08:59 03/29/17 08:26 2.5 MG Pregabalin (Lyrica Cap) 50 mg BID PO 03/29/17 09:00 04/28/17 08:59 03/29/17 22:38 50 MG Rizatriptan Benzoate (Maxalt Tab) 10 mg PRN PRN PO 03/28/17 22:15 04/27/17 22:14 Simvastatin (Zocor Tab) 5 mg QPM PO 03/29/17 21:00 04/28/17 20:59 03/29/17 20:35 5 MG Verapamil HCl (Calan-Sr Tab) 240 mg Q12 PO 03/29/17 09:00 04/28/17 08:59 03/29/17 20:31 240 MG Zolpidem Tartrate (Ambien Tab) 10 mg HS PO 03/29/17 21:00 04/28/17 20:59 03/30/17 00:30 10 MG Oxycodone HCl (Roxicodone Immediate Rel Tab) 15 mg QID PRN PO 03/28/17 22:15 04/27/17 22:14 03/30/17 04:31 15 MG Polyethylene (Miralax Powder Packet) 17 gm DAILY PRN PO 03/28/17 22:30 04/27/17 22:29 Prochlorperazine Edisylate 5 mg/ Syringe 5 ml @ 5 mls/min Q6H PRN IV 03/28/17 22:15 04/27/17 22:14 Cyclosporine (Sandimmune Cap) 50 mg BID PO 03/29/17 09:00 04/28/17 08:59 03/29/17 08:24 50 MG Mirtazapine (Remeron Tab) 45 mg HS PO 03/29/17 21:00 04/28/17 20:59 03/29/17 20:25 45 MG Lubiprostone (Amitiza) 24 mcg HS PO 03/29/17 21:00 04/28/17 20:59 03/29/17 20:23 24 MCG Sodium Chloride (Sodium Chloride Tab) 1 gm BID PO 03/29/17 15:15 04/28/17 15:14 03/29/17 20:33 1 GM Last 24 Hours Test 03/29/17 12:07 03/29/17 18:14 03/30/17 05:57 Sodium Level 126 mmol/L 128 mmol/L 130 mmol/L Potassium Level 3.8 mmol/L Chloride Level 99 mmol/L Carbon Dioxide Level 24 mmol/L Anion Gap 7.0 mmol/L Blood Urea Nitrogen 17 mg/dl Creatinine 0.84 mg/dl Est Creatinine Clear Calc Drug Dose 66.5 ml/min Estimated GFR () 97.3 Estimated GFR (Non- 83.9 BUN/Creatinine Ratio 20.4 Random Glucose 86 mg/dl Calcium Level 8.6 mg/dl Assessment & Plan hyponatremia-likely underlying siadh from chronic pain vs medication induced. would like to continue the medications for quality of life. for now, continue 2 liter fluid restriction and continue salt tablets and recheck bmp on sunday. ok from renal perspective to go home today.
[2017-03-30] MEDS: MULTIVITAMIN TAB PO SCH (08:07)
[2017-03-30] MEDS: VERAPAMIL HCL 240 MG TABCR PO SCH (08:07)
[2017-03-30] MEDS: CycloSPORINE (SANDIMMUNE) 25 MG CAP PO SCH (08:07)
[2017-03-30] MEDS: PREGABALIN 50 MG CAP PO SCH (08:07)
[2017-03-30] MEDS: ASPIRIN 81 MG ECTAB PO SCH (08:07)
[2017-03-30] MEDS: DOCUSATE SODIUM 100 MG CAP PO SCH (08:07)
[2017-03-30] MEDS: CYCLOSPORINE 100 MG PO SCH (08:08)
[2017-03-30] MEDS: FEXOFENADINE HCL 180 MG TAB PO SCH (08:08)
[2017-03-30] MEDS: SODIUM CHLORIDE 1 GM TAB PO SCH (08:09)
[2017-03-30] MEDS: MAGNESIUM CHLORIDE 64MG DELAYED REL TAB PO SCH (08:09)
[2017-03-30] MEDS: AZATHIOPRINE 50 MG TAB PO SCH (08:09)
[2017-03-30] MEDS: PANTOprazole SOD 40 MG TAB PO SCH (08:09)
[2017-03-30] MEDS: CIMETIDINE 400 MG TAB PO SCH (08:09)
[2017-03-30] MEDS: METHOCARBAMOL 750 MG TAB PO SCH ×2 (08:09→14:10)
[2017-03-30] MEDS: CETIRIZINE HCL 10 MG TAB PO SCH (08:10)
[2017-03-30] MEDS: ENOXAPARIN 40 MG/0.4 ML SYR SC SCH (08:10)
[2017-03-30] MEDS: OXCARBAZEPINE 150 MG TAB PO SCH (08:10)
[2017-03-30 11:45] VITALS: BP 145/88; PULSE 90; TEMP 36.8; O2SAT 98
--- NOTE | 2017-03-30 15:44 | Progress Note ---
Medicine Progress Note Date & Time of Visit: Mar 30, 2017 at 15:43 . Subjective Feels well. No nausea, vomiting, headache, weakness, or other problems. . Objective Last 8 Hrs Date Time Temp Pulse Resp B/P (MAP) Pulse Ox O2 Delivery O2 Flow Rate FiO2 03/30/17 12:44 Room Air 03/30/17 11:45 36.8 90 16 145/88 (107) 98 Room Air 03/30/17 08:00 Room Air Physical Exam: General- no distress Lungs- clear to auscultation; no respiratory distress Cardiovascular- RRR, II/ systolic murmur at base, no gallop; no JVD; no pretibial edema Abdomen- + BS, soft, nontender Extremities- no cyanosis; no calf tenderness Neuro- alert, oriented Skin- warm & dry . Laboratory Results: Last 24 Hours Test 03/29/17 18:14 03/30/17 05:57 Sodium Level 128 mmol/L 130 mmol/L Potassium Level 3.8 mmol/L Chloride Level 99 mmol/L Carbon Dioxide Level 24 mmol/L Anion Gap 7.0 mmol/L Blood Urea Nitrogen 17 mg/dl Creatinine 0.84 mg/dl Est Creatinine Clear Calc Drug Dose 66.5 ml/min Estimated GFR () 97.3 Estimated GFR (Non- 83.9 BUN/Creatinine Ratio 20.4 Random Glucose 86 mg/dl Calcium Level 8.6 mg/dl Assessment & Plan HYPONATREMIA Serum sodium at time of admission was 122. Urine osm 235. Appears to be euvolemic. Hyponatremia probably multifactorial. Suspect SIADH; mirtazapine may be contributing factor. Nephrology consulted. Fluid restriction and NaCl recommended. Received IV NSS with slow correction. Serum sodium this morning 130. Discharge on 2000 ml fluid restriction and NaCl 1000 mg BID. To have BMP done in a few day.s S/P AVR Doing well postop. HYPERTENSION Continue usual meds. S/P RENAL TRANSPLANT Continue usual regimen. CHRONIC PAIN Continue usual regimen. VTE PROPHYLAXIS SQ enoxaparin. Ambulate. DISPOSITION Discharge to home. Family Medicine follow-up with Dr. Ravi. Nephrology follow-up with Dr. Alejandro. . Current Inpatient Medications: Current Inpatient Medications Medications (Trade) Dose Ordered Sig/Jose G Route Start Time Stop Time Status Last Admin Dose Admin Enoxaparin Sodium (Lovenox Inj) 40 mg Q24H SC 03/29/17 09:00 04/28/17 08:59 Acetaminophen (Tylenol Tab) 650 mg Q4H PRN PO 03/28/17 22:15 04/27/17 22:14 03/29/17 16:23 650 MG Nitroglycerin (Nitrostat Tab) 0.4 mg UD PRN SL 03/28/17 22:15 04/27/17 22:14 Aspirin (Ecotrin Tab) 81 mg QAM PO 03/29/17 09:00 04/28/17 08:59 03/30/17 08:07 81 MG Azathioprine (Imuran Tab) 100 mg QAM PO 03/29/17 09:00 04/28/17 08:59 03/30/17 08:09 100 MG Buspirone HCl (Buspar Tab) 5 mg BID PO 03/29/17 09:00 04/28/17 08:59 03/30/17 08:07 5 MG Cetirizine HCl (zyrTEC TAB) 10 mg QAM PO 03/29/17 09:00 04/28/17 08:59 03/30/17 08:10 10 MG Cimetidine (Tagamet Tab) 400 mg Q12 PO 03/29/17 09:00 04/28/17 08:59 03/30/17 08:09 400 MG Cyclosporine (Sandimmune Cap) 200 mg BID PO 03/29/17 09:00 04/28/17 08:59 03/30/17 08:08 200 MG Docusate Sodium (coLACE CAP) 100 mg BID PO 03/29/17 09:00 04/28/17 08:59 03/30/17 08:07 100 MG Fexofenadine HCl (Earnestine Tab) 180 mg DAILY PO 03/29/17 09:00 04/28/17 08:59 03/30/17 08:08 180 MG Fluticasone Propionate (Flonase Nasal [place]) 2 sprays HS JOEL 03/29/17 21:00 04/28/17 20:59 03/29/17 20:21 2 SPRAYS Folic Acid (Folvite Tab) 1 mg DAILY PO 03/29/17 09:00 04/28/17 08:59 03/30/17 08:07 1 MG Lisinopril (Zestril Tab) 20 mg HS PO 03/29/17 21:00 04/28/17 20:59 03/29/17 20:30 20 MG Lorazepam (Ativan Tab) 1 mg TID PRN PO 03/28/17 22:15 04/27/17 22:14 03/30/17 01:15 1 MG Magnesium Chloride (Slow-Mag Tab) 64 mg DAILY PO 03/29/17 09:00 04/28/17 08:59 03/30/17 08:09 64 MG Methocarbamol (Robaxin Tab) 750 mg TID PO 03/29/17 09:00 04/28/17 08:59 03/30/17 14:10 750 MG Multivitamins (Multivitamin Tab) 1 tab QAM PO 03/29/17 09:00 04/28/17 08:59 03/30/17 08:07 1 TAB Oxcarbazepine (Trileptal Tab) 600 mg BID PO 03/29/17 09:00 04/28/17 08:59 03/30/17 08:10 600 MG Pantoprazole Sodium (Protonix Tab) 40 mg BID PO 03/29/17 09:00 04/28/17 08:59 03/30/17 08:09 40 MG Prednisone (PredniSONE TAB) 2.5 mg QAM PO 03/29/17 09:00 04/28/17 08:59 03/30/17 08:09 2.5 MG Pregabalin (Lyrica Cap) 50 mg BID PO 03/29/17 09:00 04/28/17 08:59 03/30/17 08:07 50 MG Rizatriptan Benzoate (Maxalt Tab) 10 mg PRN PRN PO 03/28/17 22:15 04/27/17 22:14 Simvastatin (Zocor Tab) 5 mg QPM PO 03/29/17 21:00 04/28/17 20:59 03/29/17 20:35 5 MG Verapamil HCl (Calan-Sr Tab) 240 mg Q12 PO 03/29/17 09:00 04/28/17 08:59 03/30/17 08:07 240 MG Zolpidem Tartrate (Ambien Tab) 10 mg HS PO 03/29/17 21:00 04/28/17 20:59 03/30/17 00:30 10 MG Oxycodone HCl (Roxicodone Immediate Rel Tab) 15 mg QID PRN PO 03/28/17 22:15 04/27/17 22:14 03/30/17 10:45 15 MG Polyethylene (Miralax Powder Packet) 17 gm DAILY PRN PO 03/28/17 22:30 04/27/17 22:29 Prochlorperazine Edisylate 5 mg/ Syringe 5 ml @ 5 mls/min Q6H PRN IV 03/28/17 22:15 04/27/17 22:14 Cyclosporine (Sandimmune Cap) 50 mg BID PO 03/29/17 09:00 04/28/17 08:59 03/30/17 08:07 50 MG Mirtazapine (Remeron Tab) 45 mg HS PO 03/29/17 21:00 04/28/17 20:59 03/29/17 20:25 45 MG Lubiprostone (Amitiza) 24 mcg HS PO 03/29/17 21:00 04/28/17 20:59 03/29/17 20:23 24 MCG Sodium Chloride (Sodium Chloride Tab) 1 gm BID PO 03/29/17 15:15 04/28/17 15:14 03/30/17 08:09 1 GM
[2017-03-30] MEDS ORDERED: MIRT30TA3 PO (15:51)
[2017-03-30] MEDS ORDERED: SDMC1 PO (15:51)
--- NOTE | 2017-03-30 15:57 | Discharge Instructions ---
Discharge Instructions Date of Service Mar 30, 2017. Admission Reason for Admission: Hyponatremia Discharge Discharge Diagnosis / Problem: hyponatremia Discharge Goals Goal(s): Improve disease control Activity Recommendations Activity Limitations: resume your previous activity . Instructions / Follow-Up Instructions / Follow-Up APPOINTMENTS: LABS basic metabolic profile [facility] 04/02/17 [facility] 04/04/2017 3:30 PM Stuart Ravi MD OTHER INSTRUCTIONS: Seek medical attention if you have: * temperature above 101 * chest pain, cough, or trouble breathing * abdominal pain, nausea, vomiting * diarrhea, dark stools or bloody stools * profound weakness, trouble concentrating, unusual headaches * any unanswered questions or concerns Call 911 if symptoms are severe. Call if you have any questions or problems. My cell # is [phone]. You can also reach a [facility] hospitalist on duty at [facility] 24 hours a day by calling [phone]. Please take good care of yourself. Michele Hairston . Current Hospital Diet Patient's current hospital diet: Regular Diet Discharge Diet Recommended Diet: Low Fat Diet Fluid Restriction: 2000 ml (8 cups) Pending Studies Studies pending at discharge: no Laboratory Results Last 24 Hours Test 03/29/17 18:14 03/30/17 05:57 Sodium Level 128 mmol/L 130 mmol/L Potassium Level 3.8 mmol/L Chloride Level 99 mmol/L Carbon Dioxide Level 24 mmol/L Anion Gap 7.0 mmol/L Blood Urea Nitrogen 17 mg/dl Creatinine 0.84 mg/dl Est Creatinine Clear Calc Drug Dose 66.5 ml/min Estimated GFR () 97.3 Estimated GFR (Non- 83.9 BUN/Creatinine Ratio 20.4 Random Glucose 86 mg/dl Calcium Level 8.6 mg/dl Medical Emergencies . Who to Call and When: Medical Emergencies: If at any time you feel your situation is an emergency, please call 911 immediately. . Non-Emergent Contact Non-Emergency issues call your: Primary Care Provider, Counter Clerk, Hospital Doctor, [facility] [employer] . . "Provider Documentation" section prepared by Michele Hairston. . VTE Core Measure Inpt VTE Proph given/why not?: Enoxaparin (Lovenox)SQ, SCD's [place] Drug Monitoring Program Search Results: patient reviewed within database, no issues identified
[2017-03-30] MEDS ORDERED: SODIUM CHLORIDE 1 GM TAB PO SCH ×2 (16:00→21:00)
[2017-03-30 16:26] VITALS: BP 145/88; PULSE 90; TEMP 36.8; O2SAT 98
--- NOTE | 2017-03-31 18:27 | Discharge Summary ---
Discharge Summary Date of Service Mar 31, 2017. Discharge Summary Admission Date: Mar 28, 2017 at 21:24 Discharge Date: Mar 30, 2017 Discharge Disposition: Home Principal Diagnosis: hyponatremia . 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 renal transplantation Status: Chronic (11) History of pericarditis Status: Chronic (12) History of renal calculi Status: Chronic (13) Hypertension Status: Chronic (14) Hypertensive heart disease Status: Chronic (15) Macular degeneration Status: Chronic (16) Migraine headache Status: Chronic (17) Neurofibromatosis Status: Chronic (18) Pancreatic cyst Status: Chronic (19) Renal transplant recipient Status: Chronic (20) Ulcerative colitis Status: Chronic Surgical Problems: (1) Status post aortic valve replacement with bioprosthetic valve Status: Chronic (2) Status post -donor kidney transplantation Status: Chronic (3) Status post living-donor kidney transplantation Status: Chronic . Consultations: Nephrology with Dr. Alejandro. . Pending Studies/Follow-Up: BMP to be done 04/02/17 . Medication Reconciliation New Medications: Mirtazapine (Remeron) 30 Mg Tab 30 MG PO HS, #30 TAB 5 Refills Sodium Chloride (Sodium Chloride) 1 Gm Tab 1 GM PO BID, #60 TAB 5 Refills Continued Medications: Ascorbic Acid (Ascorbic Acid) 500 Mg Tab 500 MG PO BID, TAB Aspirin (Aspirin Ec) 81 Mg Tab 81 MG PO QAM Azathioprine (Imuran) 50 Mg Tab 100 MG PO QAM Biotin (Biotin) 5,000 Mcg Sub 48466 MCG PO QAM Buspirone Hcl (Buspirone Hcl) 5 Mg Tab 5 MG PO BID, TAB Calcium Carbonate-Cholecalcife (Calcium 600+D 600-800 mg-Unit) 1 Tab Tab 1 TAB PO Q12 Cetirizine (Zyrtec) 10 Mg Tab 10 MG PO QAM Cimetidine (Tagamet) 400 Mg Tab 400 MG PO Q12 Cyclosporine (Sandimmune) 100 Mg Cap 0 PO UD 250 mg each morning 200 mg at bedtime Diclofenac Sodium (Topical) (Diclofenac Sodium) 1 % Gel 1 DOSE TOP TID PRN for Pain Diphenhydramine Hcl (Benadryl Allergy) 25 Mg Tab 25 MG PO UD Docusate Sodium (Colace) 100 Mg Cap 100 MG PO BID, CAP Fexofenadine Hcl (Earnestine) 180 Mg Tab 180 MG PO DAILY Fluticasone Propionate (Nasal) (Flonase Allergy Relief) 50 Mcg/Act Spr 2 SPRAY JOEL HS Folic Acid (Folic Acid) 1 Mg Tab 1 MG PO DAILY, TAB Glucosamine Sulfate (Glucosamine Sulfate) 500 Mg Cap 1500 MG PO Q12 Ketotifen Fumarate (Ophth) (Zaditor 0.025% Oph) 0.025 % Fredy 1 DROP OP UD Lisinopril (Zestril) 20 Mg Tab 20 MG PO HS Lorazepam (Ativan) 1 Mg Tab 1 MG PO TID PRN for Anxiety, TAB Lubiprostone (Amitiza) 24 Mcg Cap 24 MCG PO HS, CAP Magnesium Chloride (Slow-Mag Tab) 64 Mg Tabcr 64 MG PO DAILY, #7 TAB Melatonin (Melatonin) 5 Mg Cap 10-15 MG PO HS Methocarbamol (Robaxin) 750 Mg Tab 750 MG PO TID, TAB Multivitamin (Multivitamin) Tab 1 TAB PO QAM Granger-3 Fatty Acids (Fish Oil 1200 mg) 1 Cap Cap 1200 MG PO DAILY Ondansetron Hcl (Zofran) 4 Mg Tab 4 MG PO UD PRN for Nausea Oxcarbazepine (Trileptal) 600 Mg Tab 600 MG PO BID Oxycodone Hcl (Oxycodone Hcl) 15 Mg Tab 15 MG PO QID PRN for Pain Pantoprazole (Protonix) 40 Mg Tab 40 MG PO BID Polyethylene Glycol 3350 (Miralax) 1 Pow Pow 17 GM PO DAILY PRN for Constipation, #527 GM Prednisone (Prednisone) 2.5 Mg Tab 2.5 MG PO QAM Pregabalin (Lyrica) 50 Mg Cap 50 MG PO BID Rizatriptan Benzoate (Maxalt) 10 Mg Tab 10 MG PO PRN PRN for Headache Simvastatin (Zocor) 5 Mg Tab 5 MG PO QPM Sumatriptan Succinate (Imitrex) 100 Mg Tab 100 MG PO UD PRN for Headache Verapamil Sust Rel (Calan Sr Ext Rel) 240 Mg Tabcr 240 MG PO Q12 Zolpidem Tartrate (Ambien) 10 Mg Tab 10 MG PO HS Discontinued Medications: Mirtazapine (Remeron) 45 Mg Tab 45 MG PO HS, TAB Admission Information HPI (per Admitting provider): Medical history significant for hypertension, chronic anemia, chronic pain, chronic hyponatremia, ulcerative colitis as per records, history of AVR/aortic root repair replacement, complete heart block status post pacemaker placement, CRI status post kidney transplantation on immunosuppression therapy, history of cold agglutinin disease, past tobacco abuse, history of pulmonary nodules, history of DVT status post anticoagulation. Recent confinement last month for ARF, hyponatremia. Patient had a sodium of 127, creatinine of 1.9 on admission. Px was on fluid restriction for a short time. Outpatient blood work done on 03/16/2017 showed sodium 125, creatinine 1.9. PCP saw blood work a few days ago. Repeat blood work requested. Sodium noted to be 119, normal creatinine. Patient denies headache, dizziness, chest pain, shortness of breath. Denies weight gain/overt fluid retention. Patient directed to Emergency Room. At the ER, a liter of NSS was administered. . Physical Exam (per Admitting): VITAL SIGNS: Blood pressure noted to be 110/80, pulse rate 70, RR 18, temperature 36.6, sats 98 on room air. GENERAL: Noted to be comfortable, no respiratory distress. SKIN: Pallor. Warm. HEENT: Pale palpebral conjunctiva. No ptosis. Dry mucosa. NECK: Supple. No tenderness. CHEST: Clear to auscultation. Healed sternal scar. HEART: Regular rate and rhythm. Systolic murmur. ABDOMEN: Soft, nontender. EXTREMITIES: Minimal LE edema, no tenderness. No gross deformities. NEUROLOGIC: Coherent. No gross focality. . Hospital Course HYPONATREMIA Serum sodium at time of admission was 122. Urine osm 235. Appears to be euvolemic. Hyponatremia probably multifactorial. Suspect SIADH; mirtazapine may be contributing factor. Nephrology consulted. Fluid restriction and NaCl recommended. Received IV NSS with slow correction. Serum sodium day of discharge was 130. Discharge on 2000 ml fluid restriction and NaCl 1000 mg BID. Mirtazapine dose decreased from 45 to 30 mg HS; consider further tapering per Psychiatry. To have BMP done in a few days. S/P AVR Doing well postop. HYPERTENSION Continue usual meds. S/P RENAL TRANSPLANT Continue usual regimen. CHRONIC PAIN Continue usual regimen. VTE PROPHYLAXIS SQ enoxaparin. Ambulate. DISPOSITION Discharge to home. Family Medicine follow-up with Dr. Ravi. Nephrology follow-up with Dr. Alejandro. . Discharge Instructions Date of Service Mar 30, 2017. Admission Reason for Admission: Hyponatremia Discharge Discharge Diagnosis / Problem: hyponatremia Discharge Goals Goal(s): Improve disease control Activity Recommendations Activity Limitations: resume your previous activity . Instructions / Follow-Up Instructions / Follow-Up APPOINTMENTS: LABS basic metabolic profile [facility] 04/02/17 [facility] 04/04/2017 3:30 PM Stuart Ravi MD OTHER INSTRUCTIONS: Seek medical attention if you have: * temperature above 101 * chest pain, cough, or trouble breathing * abdominal pain, nausea, vomiting * diarrhea, dark stools or bloody stools * profound weakness, trouble concentrating, unusual headaches * any unanswered questions or concerns Call [phone] if symptoms are severe. Call if you have any questions or problems. My cell # is [phone]. You can also reach a [facility] hospitalist on duty at [facility] 24 hours a day by calling [phone]. Please take good care of yourself. Michele Hairston . Current Hospital Diet Patient's current hospital diet: Regular Diet Discharge Diet Recommended Diet: Low Fat Diet Fluid Restriction: 2000 ml (8 cups) Pending Studies Studies pending at discharge: no Laboratory Results Last 24 Hours Test 03/29/17 18:14 03/30/17 05:57 Sodium Level 128 mmol/L 130 mmol/L Potassium Level 3.8 mmol/L Chloride Level 99 mmol/L Carbon Dioxide Level 24 mmol/L Anion Gap 7.0 mmol/L Blood Urea Nitrogen 17 mg/dl Creatinine 0.84 mg/dl Est Creatinine Clear Calc Drug Dose 66.5 ml/min Estimated GFR () 97.3 Estimated GFR (Non- 83.9 BUN/Creatinine Ratio 20.4 Random Glucose 86 mg/dl Calcium Level 8.6 mg/dl Medical Emergencies . Who to Call and When: Medical Emergencies: If at any time you feel your situation is an emergency, please call 911 immediately. . Non-Emergent Contact Non-Emergency issues call your: Primary Care Provider, Stone Splitter, Hospital Doctor, Service Girl . . "Provider Documentation" section prepared by Michele Hairston. . VTE Core Measure Inpt VTE Proph given/why not?: Enoxaparin (Lovenox)SQ, SCD's [place] Drug Monitoring Program Search Results: patient reviewed within database, no issues identified .
== END 2017-03-30 17:17 | disposition home or self-care (01) | DRG 641 ==
LOC: C.EDB 18:01 → C.2T 21:24 → ENRESERV 21:30
PROVIDERS: ADMIT Hospitalist; ATTEND Hospitalist
DX: E87.1 Hypo-osmolality and hyponatremia (principal); Z94.0 Kidney transplant status; I44.2 Atrioventricular block, complete; D59.1 Other autoimmune hemolytic anemias; E78.5 Hyperlipidemia, unspecified; K21.9 Gastro-esophageal reflux disease without esophagitis; I10 Essential (primary) hypertension; R42 Dizziness and giddiness; G89.29 Other chronic pain; Z95.0 Presence of cardiac pacemaker; Z79.82 Long term (current) use of aspirin; Z79.52 Long term (current) use of systemic steroids; Z86.718 Personal history of other venous thrombosis and embolism; Z87.442 Personal history of urinary calculi; Z83.3 Family history of diabetes mellitus; Z84.1 Family history of disorders of kidney and ureter; Z82.49 Family history of ischemic heart disease and other diseases of the circulatory system

== ENCOUNTER 2017-10-09 15:01 | Inpatient (IN) | payer OTHER ==
[2017-10-09] VITALS (10 sets, daily range): BP systolic 110–161; BP diastolic 70–107; PULSE 60–74; TEMP 36.4–37; O2SAT 95–100; Ht 157.5 cm; Wt 63.1 kg
[~2017-10-09] VITALS: Ht 157.5 cm; Wt 63.1 kg
[~2017-10-09 15:01] MED LIST changes: -ACET-1256 PO; -AMT24 PO; -ASCO500T16 PO; -CALCTAB65 PO; -CIME-56 PO; -DICL1GEL34 TOP; -DIPH1TAB87 PO; -DOCU-94 PO; -FLUT0.15 NAE; -FLV1 PO; +GLCS500 PO; -GLUCTAB7 PO; -METH500T3 PO; +MIRT30TA3 PO; -MIRT45TA PO; -OXCA600T2 PO; -POLY335019 PO; +SDMC1 PO; -SLWMEC PO; -VITACAP37 PO; -[UNRECOGNIZED DRUG - OTHER]
[2017-10-09] MEDS ORDERED: SODIUM CHLORIDE 0.9% 1000ML 1,000 ML IV STA (15:24)
[2017-10-09 16:05] LABS: HEMATOCRIT 21.6 % (37-47); HEMOGLOBIN 7.6 g/dL (12.0-16.0); MEAN CELL VOLUME 87.8 fL (80-100); MEAN CORPUSCULAR HEMOGLOBIN 30.9 pg (25-34); MEAN CORPUSCULAR HGB CONC 35.2 g/dl (32-36); RED CELL DISTRIBUTION WIDTH CV 14.8 % (11.5-14.5); RED CELL DISTRIBUTION WIDTH SD 45.9 fL (36.4-46.3); WHITE BLOOD COUNT 2.23 K/uL (4.8-10.8)
[2017-10-09 16:14] LABS: PTT PATIENT 25.6 SECONDS (21.0-31.0)
[2017-10-09 16:19] LABS: BASO % 1.3 %; BASO ABS # 0.03 K/uL (0-0.2); EOS % 2.2 %; EOS ABS # 0.05 K/uL (0-0.5); IG# 0.02 K/uL (0.00-0.02); LYMPH % 35.9 %; MEAN PLATELET VOLUME 9.8 fL (7.4-10.4); MONO % 11.2 %; MONO ABS # 0.25 K/uL (0.11-0.59); NEUT % 48.5 %; NEUT ABS # 1.08 K/uL (1.4-6.5); NUCLEATED RED BLOOD CELL ABS 0.03 K/uL (0-0); PLATELET COUNT 80 K/uL (130-400)
[2017-10-09 16:24] LABS: ALBUMIN 3.6 gm/dl (3.4-5.0); CALCIUM 8.3 mg/dl (8.5-10.1); CREATININE 1.74 mg/dl (0.60-1.20); POTASSIUM 5.4 mmol/L (3.5-5.1); TOTAL PROTEIN 6.5 gm/dl (6.4-8.2)
[2017-10-09] MEDS ORDERED: ZCR5 PO (16:24)
[2017-10-09] MEDS ORDERED: ATV1 PO (16:24)
[2017-10-09] MEDS ORDERED: PANT40TA2 PO (16:24)
[2017-10-09] MEDS ORDERED: SODI1TAB PO (16:24)
[2017-10-09] MEDS ORDERED: AZAT50TA22 PO (16:24)
[2017-10-09] MEDS ORDERED: RIZA10TA21 PO (16:24)
[2017-10-09] MEDS ORDERED: CYCL1CAP22 PO ×2 (16:24)
[2017-10-09] MEDS ORDERED: RBX750 PO (16:24)
[2017-10-09] MEDS ORDERED: VRPSR240 PO (16:24)
[2017-10-09] MEDS ORDERED: OXYC7.5T65 PO (16:24)
[2017-10-09] MEDS ORDERED: ZOLP10TA6 PO (16:24)
[2017-10-09] MEDS ORDERED: PREG75CA PO (16:24)
[2017-10-09] MEDS ORDERED: MIRT45TA3 PO (16:24)
[2017-10-09] MEDS ORDERED: BSP/5 PO (16:24)
[2017-10-09] MEDS ORDERED: LISI-726 PO (16:24)
[2017-10-09] MEDS ORDERED: GLUCCAP3 PO (16:32)
[2017-10-09] MEDS ORDERED: SLWMEC PO (16:32)
--- NOTE | 2017-10-09 16:51 | DIAGNOSTIC IMAGING REPORT ---
CHEST ONE VIEW PORTABLE HISTORY: 46 years-old Female weak acute weakness with fatigue COMPARISON: Chest radiograph 03/28/2017 TECHNIQUE: Portable AP view of the chest FINDINGS: Cardiac silhouette is enlarged. Prior median sternotomy with prosthetic aortic valve. Left subclavian pacer is noted with leads appearing intact. No pneumothorax, pleural effusion, focal airspace consolidation or overt pulmonary edema. The bones of the chest appear grossly intact. IMPRESSION: Cardiomegaly without acute process. The above report was generated using voice recognition software. It may contain grammatical, syntax or spelling errors. Electronically signed by: Yehuda Ritchie M.D. 10/09/2017 4:50 PM Dictated Date/Time: 10/09/2017 4:49 PM
[2017-10-09 17:09] LABS: RETIC COUNT % 3.1 % (0.5-2.0)
[2017-10-09] MEDS ORDERED: POLY335019 PO (17:29)
[2017-10-09] MEDS ORDERED: SODIUM CHLORIDE 0.9% 1000ML 1,000 ML IV SCH (17:38)
[2017-10-09] MEDS ORDERED: ONDANSETRON INJ 2 MG/ML 2 ML VIAL IV PRN (17:45)
[2017-10-09] MEDS ORDERED: LPR25 PO (17:52)
[2017-10-09] MEDS ORDERED: MELA1TAB54 PO (17:52)
[2017-10-09] MEDS ORDERED: DICLOFENAC SOD 0.1% OPH SOLN 2.5 ML BTL OPB PRN (18:00)
[2017-10-09] MEDS ORDERED: ZOLPIDEM TARTRATE 10 MG TAB PO PRN (18:00)
[2017-10-09] MEDS ORDERED: LORAZEPAM 1 MG TAB PO PRN (18:00)
[2017-10-09] MEDS ORDERED: SUMATRIPTAN SUCC TAB 100 MG TAB PO PRN (18:00)
[2017-10-09] MEDS ORDERED: RIZATRIPTAN BENZOATE 10 MG TAB PO PRN (18:00)
--- NOTE | 2017-10-09 18:06 | History and Physical ---
History & Physical Date & Time of Service: Oct 09, 2017 at 18:06 Chief Complaint: Signs And Symptoms Of Anemia Primary Care Physician: Stuart Ravi M.D. History of Present Illness Source: patient, clinic records, hospital records This is a 46yo F with a PMH of autoimmune hemolytic anemia, HTN, chronic hyponatremia, history of AVR/aortic root repair replacement with bioprosthetic valve (in Jan 2017), complete heart block (s/p pacemaker placement), CKD III, CRI (s/p kidney transplantation in 1990 on immunosuppression therapy), history of cold agglutinin disease, past tobacco abuse, history of pulmonary nodules, chronic pain and ulcerative colitis per records who presents generalized weakness and dyspnea on exertion x [address] Clemons for hemolytic anemia and received 1st dose of Rituxan cycle 4 days ago. Has received Rituxan infusions in the past and states that she has required a blood transfusion following each one due to worsening anemia. States that baseline hemoglobin is around 12, but that it decreased to 9 in September. Reports that hemoglobin was 7.6 on Sunday. Since Rituxan therapy, patient has been generally weak, dyspneic on exertion and has had less energy. Denies any lightheadedness, visual changes, chest pain or shortness of breath at rest. States that her appetite has decreased and she feels bloated after fluid intake, so she has not been drinking as much water as usual. Has a history of DVT but is not on Coumadin due to hemolytic anemia. Denies any fever, chills, abdominal pain, nausea, vomiting, dysuria, hematuria, melena, hematochezia or LE swelling. Follows with Dr. David for nephrology and Dr. Rizo for cardiology. 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 renal transplantation Status: Chronic (12) History of pericarditis Status: Chronic (13) History of renal calculi Status: Chronic (14) Hypertension Status: Chronic (15) Hypertensive heart disease Status: Chronic (16) Macular degeneration Status: Chronic (17) Migraine headache Status: Chronic (18) Neurofibromatosis Status: Chronic (19) Pancreatic cyst Status: Chronic (20) Renal transplant recipient Status: Chronic (21) Ulcerative colitis Status: Chronic Surgical Problems: (1) Status post aortic valve replacement with bioprosthetic valve Status: Chronic (2) Status post -donor kidney transplantation Status: Chronic (3) Status post living-donor kidney transplantation Status: Chronic Family History Diabetes mellitus Heart disease Hypertension Kidney disease Kidney stones Lung disease Social History Smoking Status: Former Smoker Alcohol Use: occasionally Marital Status: Housing status: lives with family Occupational Status: employed Immunizations History of Influenza Vaccine: Yes History of Pneumococcal: Yes Allergies Coded Allergies: Morphine (Verified Allergy, Intermediate, HIVES, HAS HAD CODEINE W/O PROBLEM, 03/28/17) HIVES, HAS HAD CODEINE W/O PROBLEM HAS ALSO TOLERATED TRAMADOL Hydralazine (Verified Allergy, Unknown, HIVES, 03/28/17) Oxycodone (Unverified Adverse Reaction, Severe, BLOAT, UNABLE TO EAT, CONSTIPATION, 03/28/17) THIS IS OXYCONTIN ISSUE...She is taking and able to take IR products Valacyclovir (Unverified Adverse Reaction, Intermediate, NAUSEA, VOMITING , DEHYDRATION, 03/28/17) Nitrates, Organic (Verified Adverse Reaction, Unknown, migraines, 03/28/17) Home Medications Scheduled Ascorbic Acid (Ascorbic Acid), 500 MG PO BID Aspirin (Aspirin Ec), 81 MG PO QAM Azathioprine (Azathioprine), 50 MG PO QAM Biotin (Biotin), 10,000 MCG PO QAM Buspirone HCl (Buspirone HCl), 5 MG PO BID Calcium Carbonate-Cholecalcife (Calcium 600+D 600-800 mg-Unit), 1 TAB PO Q12 Cetirizine (Zyrtec), 10 MG PO QAM Cimetidine (Tagamet), 400 MG PO Q12 Cyclosporine Modified (For Shakir (Cyclosporine Modified), 200 MG PO HS Cyclosporine Modified (For Shakir (Cyclosporine Modified), 250 MG PO QAM Docusate Sodium (Colace), 100 MG PO BID Fexofenadine Hcl (Earnestine), 180 MG PO QPM Fluticasone Propionate (Nasal) (Flonase Allergy Relief), 2 SPRAYS JOEL HS Folic Acid (Folic Acid), 1 MG PO DAILY Glucosamine-Fish Oil-Epa-Dha (Glucosamine & Fish Oil), 1 CAP PO Q12 Ketotifen Fumarate (Ophth) (Zaditor 0.025% Oph), 1 DROP OP UD Lisinopril (Lisinopril), 20 MG PO HS Lubiprostone (Amitiza), 24 MCG PO HS Magnesium Chloride (Slow-Mag Tab), 64 MG PO BID Methocarbamol (Methocarbamol), 750 MG PO QID Metoprolol Tartrate (Lopressor), 0.5 TAB PO DAILY Mirtazapine (Mirtazapine), 45 MG PO HS Multivitamin (Multivitamin), 1 TAB PO QAM Oxcarbazepine (Trileptal), 600 MG PO BID Pantoprazole (Pantoprazole Sodium), 40 MG PO BID Prednisone (Prednisone), 2.5 MG PO QAM Pregabalin (Lyrica), 75 MG PO QPM Pregabalin (Lyrica), 50 MG PO QAM Simvastatin (Simvastatin), 5 MG PO QPM Sodium Chloride (Sodium Chloride), 1 GM PO BID Verapamil HCl (Verapamil HCl ER), 240 MG PO Q12 Scheduled PRN Diclofenac Sodium (Topical) (Diclofenac Sodium), 4 GM TOP TID PRN for Pain Diphenhydramine Hcl (Benadryl Allergy), 25 MG PO UD PRN for Allergic Reaction Lorazepam (Lorazepam), 1 MG PO TID PRN for Anxiety Ondansetron Hcl (Zofran), 4 MG PO UD PRN for Nausea Oxycodone/Acetaminophen 7.5MG/325MG (Percocet 7.5MG/325MG), 1 TAB PO Q6H PRN for Pain Polyethylene Glycol 3350 (Miralax), 17 GM PO DAILY PRN for Constipation Rizatriptan Benzoate (Rizatriptan Benzoate), 10 MG PO UD PRN for Headache Sumatriptan Succinate (Imitrex), 100 MG PO UD PRN for Headache Zolpidem Tartrate (Zolpidem Tartrate), 10 MG PO HS PRN for Insomnia Review of Systems Ten systems reviewed and negative except as noted in the HPI. Physical Exam Vital Signs Date Time Temp Pulse Resp B/P (MAP) Pulse Ox O2 Delivery O2 Flow Rate FiO2 10/09/17 17:51 36.5 61 16 131/82 98 10/09/17 17:48 61 10/09/17 17:09 61 16 136/68 98 Room Air 10/09/17 15:43 62 10/09/17 15:40 97 Room Air 10/09/17 15:09 36.3 69 18 124/80 97 Room Air General Appearance: WD/WN, no apparent distress Head: normocephalic, atraumatic Eyes: normal inspection, PERRL, sclerae normal ENT: normal ENT inspection, hearing grossly normal, pharynx normal Neck: supple, thyroid normal, trachea midline Respiratory/Chest: chest non-tender, lungs clear, normal breath sounds, no respiratory distress, no accessory muscle use Cardiovascular: regular rate, rhythm, normal peripheral pulses, + systolic murmur Abdomen/GI: non tender, soft, no organomegaly Extremities/Musculoskelatal: normal inspection, no calf tenderness, no pedal edema Neurologic/Psych: no motor/sensory deficits, alert, normal mood/affect, oriented x 3 Skin: normal color, warm/dry, + pallor Diagnostics Laboratory Results Results Past 24 Hours Test 10/09/17 15:31 10/09/17 15:44 10/09/17 15:45 10/09/17 15:48 Range/Units White Blood Count 2.23 4.8-10.8 K/uL Red Blood Count 2.46 4.2-5.4 M/uL Hemoglobin 7.6 12.0-16.0 g/dL Hematocrit 21.6 37-47 % Mean Corpuscular Volume 87.8 80-100 fL Mean Corpuscular Hemoglobin 30.9 25-34 pg Mean Corpuscular Hemoglobin Concent 35.2 32-36 g/dl Platelet Count 80 130-400 K/uL Mean Platelet Volume 9.8 7.4-10.4 fL Neutrophils (%) (Auto) 48.5 % Lymphocytes (%) (Auto) 35.9 % Monocytes (%) (Auto) 11.2 % Eosinophils (%) (Auto) 2.2 % Basophils (%) (Auto) 1.3 % Neutrophils # (Auto) 1.08 1.4-6.5 K/uL Lymphocytes # (Auto) 0.80 1.2-3.4 K/uL Monocytes # (Auto) 0.25 0.11-0.59 K/uL Eosinophils # (Auto) 0.05 0-0.5 K/uL Basophils # (Auto) 0.03 0-0.2 K/uL RDW Standard Deviation 45.9 36.4-46.3 fL RDW Coefficient of Variation 14.8 11.5-14.5 % Immature Granulocyte % (Auto) 0.9 % Immature Granulocyte # (Auto) 0.02 0.00-0.02 K/uL Nucleated RBC Absolute Count (auto) 0.03 0-0 K/uL Nucleated Red Blood Cells % 1.1 % Platelet Estimate DECREASED Red Blood Cell Morphology Unremarkable Absolute Reticulocyte Count 0.08 0.02-0.10 10^6/uL Percent Reticulocyte Count 3.1 0.5-2.0 % Prothrombin Time 10.6 9.0-12.0 SECONDS Prothromb Time International Ratio 1.0 0.9-1.1 Activated Partial Thromboplast Time 25.6 21.0-31.0 SECONDS Partial Thromboplastin Ratio 1.0 Sodium Level 131 136-145 mmol/L Potassium Level 5.4 3.5-5.1 mmol/L Chloride Level 102 98-107 mmol/L Carbon Dioxide Level 21 21-32 mmol/L Anion Gap 8.0 3-11 mmol/L Blood Urea Nitrogen 38 7-18 mg/dl Creatinine 1.74 0.60-1.20 mg/dl Est Creatinine Clear Calc Drug Dose 35.8 ml/min Estimated GFR () 40.3 Estimated GFR (Non- 34.8 BUN/Creatinine Ratio 22.0 10-20 Random Glucose 102 70-99 mg/dl Calcium Level 8.3 8.5-10.1 mg/dl Total Bilirubin 0.7 0.2-1 mg/dl Direct Bilirubin 0.2 0-0.2 mg/dl Aspartate Amino Transf (AST/SGOT) 22 15-37 U/L Alanine Aminotransferase (ALT/SGPT) 28 12-78 U/L Alkaline Phosphatase 85 45-117 U/L Lactate Dehydrogenase 333 84-246 U/L Total Protein 6.5 6.4-8.2 gm/dl Albumin 3.6 3.4-5.0 gm/dl Lipase 138 73-393 U/L Urine Color YELLOW Urine Appearance CLEAR CLEAR Urine pH 5.0 4.5-7.5 Urine Specific Combs 1.018 1.000-1.030 Urine Protein NEG NEG Urine Glucose (UA) NEG NEG Urine Ketones NEG NEG Urine Occult Blood NEG NEG Urine Nitrite NEG NEG Urine Bilirubin NEG NEG Urine Urobilinogen NEG NEG Urine Leukocyte Esterase NEG NEG Test 10/09/17 17:13 Range/Units Diagnostic Radiology CXR: IMPRESSION: Cardiomegaly without acute process. Impression Assessment and Plan This is a 46yo F with a PMH of autoimmune hemolytic anemia, HTN, chronic hyponatremia, history of AVR/aortic root repair replacement with bioprosthetic valve (in Jan 2017), complete heart block (s/p pacemaker placement), CRI (s/p kidney transplant in 1990 on immunosuppression therapy), history of cold agglutinin disease, past tobacco abuse, history of pulmonary nodules, chronic pain and ulcerative colitis per records who presents generalized weakness and dyspnea on exertion x 4 days. Pancytopenia H/o autoimmune hemolytic anemia -Baseline wbc and platelet WNL, baseline hgb ~12 -Currently, wbc: 2.23, plt: 80, hgb: 7.6 -Type and crossed, 2 units prbcs ordered -Monitor hgb and hgt -Received Rituxan therapy 4 days ago -Denies any raphael bleeding, heme occult negative -Hemolytic anemia work-up ordered-- follow -Hematology consulted -Monitor CBC DESIREE on CKD III -Cr elevated to 1.7 (baseline 0.8-1) -Admits to poor PO intake over past few days -Gentle IV fluids -Hold lisinopril -Monitor PRP Chronic hyponatremia -Sodium stable at 131 (upper end of baseline) -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 Ravi Dispo: Admitted to telemetry. Plan to return home once medically stable. Patient seen in collaboration with Dr. Villar. Please see addendum. Attending Note: Patient is a 46 yr female with multiple comorbidities presents with history of worsening generalized weakness and dyspnea on exertion since 4 days duration. Patient received Rituxan for hemolytic anemia 4 days ago and she believes that she received blood transfusions after prior Rituxan treatments in the past. She was found to have pancytopenia on labs. She reports associated intermittent dizziness and mild frontal headache which is aching type. She denies any bleeding issues currently. Physical Exam: Vitals signs as noted above General Appearance:Moderately built and nourished, no apparent distress Head: normocephalic, Atraumatic Eyes: normal inspection, EOMI, PERRL, +Pallor Neck: supple, Trachea midline Respiratory/Chest: Normal breath sounds, CTA Cardiovascular: S1, S2, +systolic murmur Abdomen/GI:Soft, Non tender, Bowel sounds present Extremities/Musculoskelatal:normal inspection, no edema Neurologic/Psych:AAOX3, grossly no focal neurological deficits Skin:normal color,warm, well healed surgical scar on abdomen Assessment and Plan: Symptomatic Anemia Pancytopenia H/O Autoimmune hemolytic anemia Denies bleeding issues FOBT negative 2 units PRBCs ordered in ED Hemolytic work up including peripheral smear pending Received Rituxan 4 days ago which could be contributing Hematology consulted for Input monitor CBC DESIREE on CKD III S/P renal transplant Gentle IV fluids Hold lisinopril monitor renal function Hyperkalemia Not on supplements at home Lisinopril held monitor potassium levels I personally reviewed the record. Patient is interviewed and examined at bedside. Patient's care is coordinated with Sulma Meehan PA-C. Please refer to the documentation above for details of patient's presentation and for discussion of other issues. Resuscitation Status VTE Prophylaxis Will order VTE Prophylaxis: Yes
[2017-10-09] MEDS ORDERED: POLYETHYLENE (MIRALAX) 17 GM PACK PO PRN (18:30)
[2017-10-09] MEDS ORDERED: FLV1 PO (18:44)
[2017-10-09] MEDS ORDERED: AMT24 PO (18:44)
[2017-10-09] MEDS ORDERED: DIPH1TAB87 PO (18:44)
[2017-10-09] MEDS ORDERED: KETO0.0216 OP (19:19)
[2017-10-09] MEDS ORDERED: CALC-459 PO (19:19)
[2017-10-09] MEDS ORDERED: LYR/50 PO (19:19)
[2017-10-09] MEDS ORDERED: FEXO1TAB46 PO (19:19)
[2017-10-09] MEDS ORDERED: ASPI81TA28 PO (19:19)
[2017-10-09] MEDS ORDERED: DOCU-94 PO (19:30)
[2017-10-09] MEDS ORDERED: CIME-56 PO (19:30)
[2017-10-09] MEDS ORDERED: ASCO500T16 PO (19:30)
[2017-10-09] MEDS ORDERED: OXCA600T2 PO (19:30)
[2017-10-09] MEDS ORDERED: FLUT0.15 NAE (19:30)
[2017-10-09] MEDS ORDERED: DICL1GEL34 TOP (19:30)
--- NOTE | 2017-10-09 19:50 | EMERGENCY ROOM VISIT NOTE ---
History Report prepared by Wai: Eli Tejada Under the Supervision of: Dr. Galen Estrada D.O. First contact with patient: 15:15 Chief Complaint: OTHER COMPLAINT Stated Complaint: SIGNS AND SYMPTOMS OF ANEMIA History of Present Illness The patient is a 46 year old female who presents to the Emergency Room with complaints of weakness over the last 4 days. 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 She reports that her hemoglobin went from 12.6 in August to 9 in September. She states that she was then started on Rituxan therapy again and that she had her first dose 4 days ago. The patient states that 4 days ago her hemoglobin was 7.6. The patient states that she has been dyspneic on exertion and has been cold. The patient also reports that her fingers have been twitching. She states that she has had these symptoms 4 times in the past when her hemoglobin has been low. The patient states that she feels like she is anemic. The patient denies having any chest pain, shortness of breath, nausea, vomiting, diarrhea, and urinary symptoms. She states that her last bowel movement was yesterday. She reports a history of C. diff colitis and a renal transplant. She also reports a history of an aortic valve replacement in January. She states that she is not on Coumadin. Source of History: patient Onset: over the last 4 days Position: other (generalized ) Quality: other (weakness) Associated Symptoms: + chills (cold), No chest pain, No SOB (dyspneic on exertion), No nausea, No vomiting, No diarrhea, No urinary symptoms Note: additional symptoms: dyspneic on exertion, tingling in fingers Review of Systems See HPI for pertinent positives & negatives. A total of 10 systems reviewed and were otherwise negative. Past Medical & Surgical Medical Problems: (1) Anemia (2) Aortic regurgitation (3) Autoimmune hemolytic anemia (4) Cervicalgia (5) Dyslipidemia (6) Gastroparesis (7) GERD (gastroesophageal reflux disease) (8) History of DVT (deep vein thrombosis) (9) History of herpes zoster (10) History of membranous glomerulonephritis (11) History of pericarditis (12) History of renal calculi (13) Hypertension (14) Hypertensive heart disease (15) Macular degeneration (16) Migraine headache (17) Neurofibromatosis (18) Pancreatic cyst (19) Renal transplant recipient (20) Ulcerative colitis Surgical Problems: (1) Status post aortic valve replacement with bioprosthetic valve (2) Status post -donor kidney transplantation (3) Status post living-donor kidney transplantation Family History Diabetes mellitus Heart disease Hypertension Kidney disease Kidney stones Lung disease Social History Smoking Status: Former Smoker Marital Status: Housing Status: lives with family Occupation Status: employed Current/Historical Medications Scheduled Ascorbic Acid (Ascorbic Acid), 500 MG PO BID Aspirin (Aspirin Ec), 81 MG PO QAM Azathioprine (Azathioprine), 50 MG PO QAM Biotin (Biotin), 10,000 MCG PO QAM Buspirone HCl (Buspirone HCl), 5 MG PO BID Calcium Carbonate-Cholecalcife (Calcium 600+D 600-800 mg-Unit), 1 TAB PO Q12 Cetirizine (Zyrtec), 10 MG PO QAM Cimetidine (Tagamet), 400 MG PO Q12 Cyclosporine Modified (For Shakir (Cyclosporine Modified), 200 MG PO HS Cyclosporine Modified (For Shakir (Cyclosporine Modified), 250 MG PO QAM Docusate Sodium (Colace), 100 MG PO BID Fexofenadine Hcl (Earnestine), 180 MG PO QPM Fluticasone Propionate (Nasal) (Flonase Allergy Relief), 2 SPRAYS JOEL HS Folic Acid (Folic Acid), 1 MG PO DAILY Glucosamine-Fish Oil-Epa-Dha (Glucosamine & Fish Oil), 1 CAP PO Q12 Ketotifen Fumarate (Ophth) (Zaditor 0.025% Oph), 1 DROP OP UD Lisinopril (Lisinopril), 20 MG PO HS Lubiprostone (Amitiza), 24 MCG PO HS Magnesium Chloride (Slow-Mag Tab), 64 MG PO BID Methocarbamol (Methocarbamol), 750 MG PO QID Metoprolol Tartrate (Lopressor), 0.5 TAB PO DAILY Mirtazapine (Mirtazapine), 45 MG PO HS Multivitamin (Multivitamin), 1 TAB PO QAM Oxcarbazepine (Trileptal), 600 MG PO BID Pantoprazole (Pantoprazole Sodium), 40 MG PO BID Prednisone (Prednisone), 2.5 MG PO QAM Pregabalin (Lyrica), 75 MG PO QPM Pregabalin (Lyrica), 50 MG PO QAM Simvastatin (Simvastatin), 5 MG PO QPM Sodium Chloride (Sodium Chloride), 1 GM PO BID Verapamil HCl (Verapamil HCl ER), 240 MG PO Q12 Scheduled PRN Diclofenac Sodium (Topical) (Diclofenac Sodium), 4 GM TOP TID PRN for Pain Diphenhydramine Hcl (Benadryl Allergy), 25 MG PO UD PRN for Allergic Reaction Lorazepam (Lorazepam), 1 MG PO TID PRN for Anxiety Ondansetron Hcl (Zofran), 4 MG PO UD PRN for Nausea Oxycodone/Acetaminophen 7.5MG/325MG (Percocet 7.5MG/325MG), 1 TAB PO Q6H PRN for Pain Polyethylene Glycol 3350 (Miralax), 17 GM PO DAILY PRN for Constipation Rizatriptan Benzoate (Rizatriptan Benzoate), 10 MG PO UD PRN for Headache Sumatriptan Succinate (Imitrex), 100 MG PO UD PRN for Headache Zolpidem Tartrate (Zolpidem Tartrate), 10 MG PO HS PRN for Insomnia Allergies Coded Allergies: Morphine (Verified Allergy, Intermediate, HIVES, HAS HAD CODEINE W/O PROBLEM, 03/28/17) HIVES, HAS HAD CODEINE W/O PROBLEM HAS ALSO TOLERATED TRAMADOL Hydralazine (Verified Allergy, Unknown, HIVES, 03/28/17) Oxycodone (Unverified Adverse Reaction, Severe, BLOAT, UNABLE TO EAT, CONSTIPATION, 03/28/17) THIS IS OXYCONTIN ISSUE...She is taking and able to take IR products Valacyclovir (Unverified Adverse Reaction, Intermediate, NAUSEA, VOMITING , DEHYDRATION, 03/28/17) Nitrates, Organic (Verified Adverse Reaction, Unknown, migraines, 03/28/17) Physical Exam Vital Signs Date Time Temp Pulse Resp B/P (MAP) Pulse Ox O2 Delivery O2 Flow Rate FiO2 10/09/17 17:09 61 16 136/68 98 Room Air 10/09/17 15:43 62 10/09/17 15:40 97 Room Air 10/09/17 15:09 36.3 69 18 124/80 97 Room Air Physical Exam GENERAL: Sitting up in bed, alert, well appearing, well nourished, no distress, non-toxic EYE EXAM: normal conjunctiva. OROPHARYNX: no exudate, no erythema, lips, buccal mucosa, and tongue normal and mucous membranes are moist NECK: supple, no nuchal rigidity, no adenopathy, non-tender LUNGS: Clear to auscultation. Normal chest wall mechanics HEART: no murmurs, S1 normal and S2 normal ABDOMEN: abdomen soft, non-tender, normo-active bowel sounds, no masses, no rebound or guarding. BACK: Back is symmetrical on inspection and there is no deformity, no midline tenderness, no CVA tenderness. SKIN: no rashes and no bruising UPPER EXTREMITIES: upper extremities are grossly normal. LOWER EXTREMITIES: No pitting edema. NEURO EXAM: Normal sensorium, cranial nerves II-XII grossly intact, normal speech, no gross weakness of arms, no gross weakness of legs. RECTAL: Heme negative. Performed with nurse at bedside. Medical Decision & Procedures ER Provider Diagnostic Interpretation: Radiology results as stated below per my review and the radiologist's interpretation: CHEST ONE VIEW PORTABLE HISTORY: 46 years-old Female weak acute weakness with fatigue COMPARISON: Chest radiograph 03/28/2017 TECHNIQUE: Portable AP view of the chest FINDINGS: Cardiac silhouette is enlarged. Prior median sternotomy with prosthetic aortic valve. Left subclavian pacer is noted with leads appearing intact. No pneumothorax, pleural effusion, focal airspace consolidation or overt pulmonary edema. The bones of the chest appear grossly intact. IMPRESSION: Cardiomegaly without acute process. The above report was generated using voice recognition software. It may contain grammatical, syntax or spelling errors. Electronically signed by: Yehuda Ritchie M.D. 10/09/2017 4:50 PM Dictated Date/Time: 10/09/2017 4:49 PM Laboratory Results 10/09/17 15:31 Red Blood Count 2.46, Mean Corpuscular Volume 87.8, Mean Corpuscular Hemoglobin 30.9, Mean Corpuscular Hemoglobin Concent 35.2, Mean Platelet Volume 9.8, Neutrophils (%) (Auto) 48.5, Lymphocytes (%) (Auto) 35.9, Monocytes (%) (Auto) 11.2, Eosinophils (%) (Auto) 2.2, Basophils (%) (Auto) 1.3, Neutrophils # (Auto ) 1.08, Lymphocytes # (Auto) 0.80, Monocytes # (Auto) 0.25, Eosinophils # (Auto ) 0.05, Basophils # (Auto) 0.03 10/09/17 15:31 Test 10/09/17 15:31 10/09/17 15:44 10/09/17 15:45 10/09/17 15:48 White Blood Count 2.23 K/uL (4.8-10.8) Red Blood Count 2.46 M/uL (4.2-5.4) Hemoglobin 7.6 g/dL (12.0-16.0) Hematocrit 21.6 % (37-47) Mean Corpuscular Volume 87.8 fL (80-100) Mean Corpuscular Hemoglobin 30.9 pg (25-34) Mean Corpuscular Hemoglobin Concent 35.2 g/dl (32-36) Platelet Count 80 K/uL (130-400) Mean Platelet Volume 9.8 fL (7.4-10.4) Neutrophils (%) (Auto) 48.5 % Lymphocytes (%) (Auto) 35.9 % Monocytes (%) (Auto) 11.2 % Eosinophils (%) (Auto) 2.2 % Basophils (%) (Auto) 1.3 % Neutrophils # (Auto) 1.08 K/uL (1.4-6.5) Lymphocytes # (Auto) 0.80 K/uL (1.2-3.4) Monocytes # (Auto) 0.25 K/uL (0.11-0.59) Eosinophils # (Auto) 0.05 K/uL (0-0.5) Basophils # (Auto) 0.03 K/uL (0-0.2) RDW Standard Deviation 45.9 fL (36.4-46.3) RDW Coefficient of Variation 14.8 % (11.5-14.5) Immature Granulocyte % (Auto) 0.9 % Immature Granulocyte # (Auto) 0.02 K/uL (0.00-0.02) Nucleated RBC Absolute Count (auto) 0.03 K/uL (0-0) Nucleated Red Blood Cells % 1.1 % Platelet Estimate DECREASED Red Blood Cell Morphology Unremarkable Absolute Reticulocyte Count 0.08 10^6/uL (0.02-0.10) Percent Reticulocyte Count 3.1 % (0.5-2.0) Prothrombin Time 10.6 SECONDS (9.0-12.0) Prothromb Time International Ratio 1.0 (0.9-1.1) Activated Partial Thromboplast Time 25.6 SECONDS (21.0-31.0) Partial Thromboplastin Ratio 1.0 Anion Gap 8.0 mmol/L (3-11) Est Creatinine Clear Calc Drug Dose 35.8 ml/min Estimated GFR () 40.3 Estimated GFR (Non- 34.8 BUN/Creatinine Ratio 22.0 (10-20) Calcium Level 8.3 mg/dl (8.5-10.1) Total Bilirubin 0.7 mg/dl (0.2-1) Direct Bilirubin 0.2 mg/dl (0-0.2) Aspartate Amino Transf (AST/SGOT) 22 U/L (15-37) Alanine Aminotransferase (ALT/SGPT) 28 U/L (12-78) Alkaline Phosphatase 85 U/L (45-117) Lactate Dehydrogenase 333 U/L (84-246) Total Protein 6.5 gm/dl (6.4-8.2) Albumin 3.6 gm/dl (3.4-5.0) Lipase 138 U/L (73-393) Urine Color YELLOW Urine Appearance CLEAR (CLEAR) Urine pH 5.0 (4.5-7.5) Urine Specific [place] 1.018 (1.000-1.030) Urine Protein NEG (NEG) Urine Glucose (UA) NEG (NEG) Urine Ketones NEG (NEG) Urine Occult Blood NEG (NEG) Urine Nitrite NEG (NEG) Urine Bilirubin NEG (NEG) Urine Urobilinogen NEG (NEG) Urine Leukocyte Esterase NEG (NEG) Test 10/09/17 17:13 Laboratory results per my review. Medications Administered Medications (Trade) Dose Ordered Sig/Jose G Route Start Time Stop Time Status Last Admin Dose Admin Sodium Chloride 1,000 ml @ 999 mls/hr Q1H1M STAT IV 10/09/17 15:24 10/09/17 16:24 DC 10/09/17 15:48 999 MLS/HR ECG Per My Interpretation Indication: weakness Rate (beats per minute): 61 Rhythm: other (atrial sinus ventricular paced) Findings: LBBB, nonspecific-ST abn (Lateral and inferior leads), other (normal axis) ED Course ED COURSE: Vital signs were reviewed and were normal. The patients medical record was reviewed The above diagnostic studies were performed and reviewed. ED treatments and interventions as stated above. 1517: The patient was evaluated in room A4B. A complete history and physical examination was performed. 1524: Ordered Sodium Chloride 1000 ml @ 999 mls/hr IV. 1618: I performed a rectal exam with a nurse at bedside. 1630: I consented the patient for blood. 1635: I reviewed the patient's case with Dr. David. 1641: I reviewed the patient's case with Dr. Clemons. 1645: Michele from [facility] said that the patient's pacemaker looks good. 1700: Upon reevaluation, the patient is resting. I discussed the findings and the treatment plan with the patient. She expresses agreement and understanding. I spoke with Chanda SILVEIRA of the [facility]. She will be evaluated for further management Medical Decision Differential Diagnosis includes but is not limited to dehydration, stroke, anemia, hypoglycemia, hyponatremia, hypernatremia, urinary tract infection, pneumonia, bronchitis, sepsis, gastroenteritis, additional abdominal pathology, metabolic abnormalities and infections. Patient is a 46-year-old female with a past medical history of autoimmune hemolytic anemia who presents the ER for weakness shortness of breath with exertion. She also has a history of a pacemaker, aortic valve replacement and a renal transplant. Hemoglobin has been trending down is currently 7.6. She denies any dark tarry stools. Rectal was heme-negative. BMP shows a potassium of 5.4. Creatinine was 1.7. Bilirubin, LFTs and lipase was normal. UA was negative. Discussed with hematology oncology, internal medicine and nephrology. Will hydrate. Did transfuse her 2 units of PRBCs while in the ER. LDH slightly elevated at 333. Fibrinogen was pending on admission. Patient was monitored closely while in the ER. Do favor symptomatic anemia secondary to her hemolytic anemia. Medication Reconcilliation Current Medication List: was personally reviewed by me Blood Pressure Screening Patient's blood pressure: Normal blood pressure Consults Time Called: 1620 Consulting Physician: Dr. David-Nephrology Returned Call: 1635 I reviewed the patient's case with Dr. David. Additional Consults: Time Called: 1637 Consulted Physician: Dr. Clemons- Heme Oncology Returned Call: 1641 Additional Comments: I reviewed the patient's case with Dr. Clemons. Time Called: 1640 Consulted Physician: Chanda SILVEIRA [facility] Returned Call: 1700 Additional Comments: I reviewed the patient's case with Chanda SILVEIRA. She will evaluate the patient for further management. Impression Primary Impression: Symptomatic anemia Additional Impressions: DESIREE (acute kidney injury) History of renal transplant Hyperkalemia Hemolytic anemia Scribe Attestation The scribe's documentation has been prepared under my direction and personally reviewed by me in its entirety. I confirm that the note above accurately reflects all work, treatment, procedures, and medical decision making performed by me. Departure Information Dispostion Being Evaluated By Hospitalist Stuart Jang M.D. (PCP) Patient Instructions My [facility] Problem Qualifiers Additional Impressions: Hemolytic anemia Hemolytic anemia type: other hemoglobinopathy Qualified Codes: D58.2 - Other hemoglobinopathies
[2017-10-09] MEDS: FLUTICASONE PROPIONATE NA SPR 16 GM BTL NAE SCH (19:57)
[2017-10-09] MEDS: VERAPAMIL HCL 240 MG TABCR PO SCH (19:58)
[2017-10-09] MEDS: DOCUSATE SODIUM 100 MG CAP PO SCH (19:59)
[2017-10-09] MEDS: FEXOFENADINE HCL 180 MG TAB PO SCH (20:00)
[2017-10-09] MEDS: LUBIPROSTONE 8 MCG CAP PO SCH (20:00)
[2017-10-09] MEDS: CALCIUM 600MG + VIT D 400 IU TAB PO SCH (20:00)
[2017-10-09] MEDS: CIMETIDINE 400 MG TAB PO SCH (20:01)
[2017-10-09] MEDS: ASCORBIC ACID 500 MG TAB PO SCH (20:01)
[2017-10-09] MEDS: MAGNESIUM CHLORIDE 64MG DELAYED REL TAB PO SCH (20:02)
[2017-10-09] MEDS: PANTOprazole SOD 40 MG TAB PO SCH (20:03)
[2017-10-09] MEDS: METHOCARBAMOL 750 MG TAB PO SCH (20:04)
[2017-10-09] MEDS: OXCARBAZEPINE 150 MG TAB PO SCH (20:04)
[2017-10-09] MEDS: MIRTAZAPINE TAB 15 MG TAB PO SCH (20:05)
[2017-10-09] MEDS: SIMVASTATIN 5 MG TAB PO SCH (20:06)
[2017-10-09] MEDS: SODIUM CHLORIDE 1 GM TAB PO SCH (20:07)
[2017-10-09] MEDS: OXYCODONE/ACETAMINOPHEN 7.5-325 TAB PO PRN (20:24)
[2017-10-09] MEDS ORDERED: PREGABALIN 50 MG CAP PO SCH (21:00)
[2017-10-09] MEDS ORDERED: [UNRECOGNIZED DRUG - OTHER] PO SCH (21:00)
[2017-10-09] MEDS ORDERED: DICLOFENAC SOD 1% GEL 100 GM TUBE EXT PRN (22:45)
[2017-10-09] MEDS: ACETAMINOPHEN 325 MG TAB PO PRN (23:42)
[2017-10-10 04:00] VITALS: BP 113/72; PULSE 59; TEMP 36.9; O2SAT 96
[2017-10-10] MEDS: OXYCODONE/ACETAMINOPHEN 7.5-325 TAB PO PRN ×4 (04:13→22:35)
[2017-10-10 06:13] LABS: HEMATOCRIT 23.2 % (37-47); HEMOGLOBIN 8.1 g/dL (12.0-16.0); MEAN CELL VOLUME 85.9 fL (80-100); MEAN CORPUSCULAR HGB CONC 34.9 g/dl (32-36); NUCLEATED RED BLOOD CELL ABS 0.02 K/uL (0-0); RED CELL DISTRIBUTION WIDTH CV 15.1 % (11.5-14.5); RED CELL DISTRIBUTION WIDTH SD 46.5 fL (36.4-46.3); WHITE BLOOD COUNT 2.77 K/uL (4.8-10.8)
[2017-10-10 06:18] LABS: MEAN PLATELET VOLUME 9.7 fL (7.4-10.4); PLATELET COUNT 79 K/uL (130-400)
[2017-10-10 07:19] LABS: CREATININE 1.09 mg/dl (0.60-1.20); POTASSIUM 4.5 mmol/L (3.5-5.1)
[2017-10-10] MEDS: METHOCARBAMOL 750 MG TAB PO SCH ×4 (07:31→23:30)
[2017-10-10 07:42] VITALS: BP 146/81; PULSE 64; TEMP 36.6; O2SAT 96
[2017-10-10] MEDS: PANTOprazole SOD 40 MG TAB PO SCH ×2 (08:08→21:45)
[2017-10-10] MEDS: CIMETIDINE 400 MG TAB PO SCH ×2 (08:08→21:47)
[2017-10-10] MEDS: SODIUM CHLORIDE 1 GM TAB PO SCH ×2 (08:08→21:44)
[2017-10-10] MEDS: MAGNESIUM CHLORIDE 64MG DELAYED REL TAB PO SCH ×2 (08:09→21:45)
[2017-10-10] MEDS: AZATHIOPRINE 50 MG TAB PO SCH (08:09)
[2017-10-10] MEDS: DOCUSATE SODIUM 100 MG CAP PO SCH ×2 (08:10→21:45)
[2017-10-10] MEDS: ASCORBIC ACID 500 MG TAB PO SCH ×2 (08:10→21:45)
[2017-10-10] MEDS: CALCIUM 600MG + VIT D 400 IU TAB PO SCH ×2 (08:10→21:46)
[2017-10-10] MEDS: MULTIVITAMIN TAB PO SCH (08:11)
[2017-10-10] MEDS: VERAPAMIL HCL 240 MG TABCR PO SCH ×2 (08:11→21:46)
[2017-10-10] MEDS: ASPIRIN 81 MG ECTAB PO SCH (08:11)
[2017-10-10] MEDS: METOPROLOL TARTRATE 25 MG TAB PO SCH (08:12)
[2017-10-10] MEDS: CETIRIZINE HCL 10 MG TAB PO SCH (08:12)
[2017-10-10] MEDS: OXCARBAZEPINE 150 MG TAB PO SCH ×2 (08:12→21:42)
[2017-10-10] MEDS: ACETAMINOPHEN 325 MG TAB PO PRN (08:21)
[2017-10-10] MEDS: PREGABALIN 50 MG CAP PO SCH (08:38)
[2017-10-10] MEDS ORDERED: CYCLOSPORINE MODIFIED PO SCH (09:00)
[2017-10-10] MEDS ORDERED: PREGABALIN 75 MG CAP PO SCH ×2 (09:00→21:00)
[2017-10-10] MEDS ORDERED: NON-FORMULARY MEDICATION (Biotin 10,000 MCG) PO SCH (09:00)
--- NOTE | 2017-10-10 09:52 | Progress Note ---
Medicine Progress Note Date & Time of Visit: Oct 10, 2017 at 09:52. (Sulma Meehan, P.A.-CHernando) Subjective Patient seen and examined. States that she is feeling better today. No longer experiencing dyspnea on exertion with short distances. Generalized weakness improved. + Frontal headache, states that it is not a migraine Denies fever, chills, lightheadedness, visual changes, chest pain, SOB, abd pain , hematuria or blood in stool. (Sulma Meehan, [place].A.-C.) Patient is seen and examined at bedside Feels better today HAYES improving Still has mild headache No gross bleeding issues Weakness improving No other complaints (Pablito Villar MD) Objective Last 8 Hrs Date Time Temp Pulse Resp B/P (MAP) Pulse Ox O2 Delivery O2 Flow Rate FiO2 10/10/17 07:42 36.6 64 16 146/81 (102) 96 Room Air 10/10/17 04:00 36.9 59 17 113/72 (86) 96 Room Air Physical Exam: General Appearance: WD/WN, no apparent distress Head: normocephalic, atraumatic Eyes: normal inspection, PERRL, EOMI ENT: hearing grossly normal, pharynx normal Neck: supple, no JVD, no adenopathy Respiratory/Chest: lungs clear to auscultation. No wheezes, rales or rhonci. No respiratory distress or accessory muscle use Cardiovascular: regular rate, rhythm, systolic murmur, normal peripheral pulses Abdomen/GI: normal bowel sounds, soft, non-tender to palpation Extremities/Musculoskelatal: normal inspection, no calf tenderness, normal capillary refill, no pedal edema Neurologic/Psych: alert, normal mood/affect, oriented x 3 Skin: normal color, warm/dry + pallor Laboratory Results: Last 24 Hours Test 10/09/17 15:31 10/09/17 15:44 10/09/17 15:45 10/09/17 15:48 White Blood Count 2.23 K/uL Red Blood Count 2.46 M/uL Hemoglobin 7.6 g/dL Hematocrit 21.6 % Mean Corpuscular Volume 87.8 fL Mean Corpuscular Hemoglobin 30.9 pg Mean Corpuscular Hemoglobin Concent 35.2 g/dl Platelet Count 80 K/uL Mean Platelet Volume 9.8 fL Neutrophils (%) (Auto) 48.5 % Lymphocytes (%) (Auto) 35.9 % Monocytes (%) (Auto) 11.2 % Eosinophils (%) (Auto) 2.2 % Basophils (%) (Auto) 1.3 % Neutrophils # (Auto) 1.08 K/uL Lymphocytes # (Auto) 0.80 K/uL Monocytes # (Auto) 0.25 K/uL Eosinophils # (Auto) 0.05 K/uL Basophils # (Auto) 0.03 K/uL RDW Standard Deviation 45.9 fL RDW Coefficient of Variation 14.8 % Immature Granulocyte % (Auto) 0.9 % Immature Granulocyte # (Auto) 0.02 K/uL Nucleated RBC Absolute Count (auto) 0.03 K/uL Nucleated Red Blood Cells % 1.1 % Platelet Estimate DECREASED Red Blood Cell Morphology Unremarkable Absolute Reticulocyte Count 0.08 10^6/uL Percent Reticulocyte Count 3.1 % Prothrombin Time 10.6 SECONDS Prothromb Time International Ratio 1.0 Activated Partial Thromboplast Time 25.6 SECONDS Partial Thromboplastin Ratio 1.0 Sodium Level 131 mmol/L Potassium Level 5.4 mmol/L Chloride Level 102 mmol/L Carbon Dioxide Level 21 mmol/L Anion Gap 8.0 mmol/L Blood Urea Nitrogen 38 mg/dl Creatinine 1.74 mg/dl Est Creatinine Clear Calc Drug Dose 35.8 ml/min Estimated GFR () 40.3 Estimated GFR (Non- 34.8 BUN/Creatinine Ratio 22.0 Random Glucose 102 mg/dl Calcium Level 8.3 mg/dl Total Bilirubin 0.7 mg/dl Direct Bilirubin 0.2 mg/dl Aspartate Amino Transf (AST/SGOT) 22 U/L Alanine Aminotransferase (ALT/SGPT) 28 U/L Alkaline Phosphatase 85 U/L Lactate Dehydrogenase 333 U/L Total Protein 6.5 gm/dl Albumin 3.6 gm/dl Lipase 138 U/L Urine Color YELLOW Urine Appearance CLEAR Urine pH 5.0 Urine Specific [place] 1.018 Urine Protein NEG Urine Glucose (UA) NEG Urine Ketones NEG Urine Occult Blood NEG Urine Nitrite NEG Urine Bilirubin NEG Urine Urobilinogen NEG Urine Leukocyte Esterase NEG Test 10/09/17 23:21 10/10/17 05:18 Fibrinogen 245 mg/dl White Blood Count 2.77 K/uL Red Blood Count 2.70 M/uL Hemoglobin 8.1 g/dL Hematocrit 23.2 % Mean Corpuscular Volume 85.9 fL Mean Corpuscular Hemoglobin 30.0 pg Mean Corpuscular Hemoglobin Concent 34.9 g/dl Platelet Count 79 K/uL Mean Platelet Volume 9.7 fL RDW Standard Deviation 46.5 fL RDW Coefficient of Variation 15.1 % Nucleated RBC Absolute Count (auto) 0.02 K/uL Nucleated Red Blood Cells % 0.7 % Sodium Level 136 mmol/L Potassium Level 4.5 mmol/L Chloride Level 106 mmol/L Carbon Dioxide Level 23 mmol/L Anion Gap 7.0 mmol/L Blood Urea Nitrogen 31 mg/dl Creatinine 1.09 mg/dl Est Creatinine Clear Calc Drug Dose 56.3 ml/min Estimated GFR () 70.5 Estimated GFR (Non- 60.8 BUN/Creatinine Ratio 28.1 Random Glucose 86 mg/dl Calcium Level 8.0 mg/dl (Sulma Meehan, P.A.-C.) Physical Exam: General Appearance:Moderately built and nourished, no apparent distress Head: normocephalic, Atraumatic Eyes: normal inspection, EOMI, PERRL, +Pallor Neck: supple, Trachea midline Respiratory/Chest: Normal breath sounds, CTA Cardiovascular: S1, S2, +systolic murmur Abdomen/GI:Soft, Non tender, Bowel sounds present Extremities/Musculoskelatal:normal inspection, no edema Neurologic/Psych:AAOX3, grossly no focal neurological deficits Skin:normal color,warm, well healed surgical scar on abdomen (Pablito Villar MD) Assessment & Plan This is a 46yo F with a PMH of autoimmune hemolytic anemia, HTN, chronic hyponatremia, history of AVR/aortic root repair replacement with bioprosthetic valve (in Jan 2017), complete heart block (s/p pacemaker placement), CRI (s/p kidney transplant in 1990 on immunosuppression therapy), history of cold agglutinin disease, past tobacco abuse, history of pulmonary nodules, chronic pain and ulcerative colitis per records who presents generalized weakness and dyspnea and was found to be anemic. Pancytopenia H/o autoimmune hemolytic anemia -Baseline wbc and platelet WNL, baseline hgb ~12 -Currently, wbc: 2.27, plt: 79, hgb: 8.1 -Hgb increased from 7.6 to 8.1 after 2 units prbcs -Received Rituxan therapy 4 days ago -Also on cyclosporine, which can cause hemolysis -Denies any raphael bleeding, heme occult negative -Hemolytic anemia work-up ordered -LDH: elevated at 333 -Fibrinogen: WNL -Absolute retic count: WNL -Haptoglobin, peripheral smear pending -Hematology consulted -- appreciate recommendations -Monitor CBC DESIREE on CKD III -- resolving -Cr elevated to 1.7 initially (baseline 0.8-1) -After gentle IV fluids, Cr back to 1.09 -Hold lisinopril -Monitor PRP Chronic hyponatremia -Sodium stable at 136 (upper end of baseline) -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 Ravi Dispo: Admitted to telemetry. Plan to return home once medically stable. Current Inpatient Medications: Current Inpatient Medications Medications (Trade) Dose Ordered Sig/Jose G Route Start Time Stop Time Status Last Admin Dose Admin Acetaminophen (Tylenol Tab) 650 mg Q4H PRN PO 10/09/17 17:45 11/08/17 17:44 10/10/17 08:21 650 MG Ondansetron HCl (Zofran Inj) 4 mg Q6H PRN IV 10/09/17 17:45 11/08/17 17:44 Ascorbic Acid (Vitamin C Tab) 500 mg BID PO 10/09/17 21:00 11/08/17 20:59 10/10/17 08:10 500 MG Aspirin (Ecotrin Tab) 81 mg QAM PO 10/10/17 09:00 11/09/17 08:59 10/10/17 08:11 81 MG Azathioprine (Imuran Tab) 50 mg QAM PO 10/10/17 09:00 11/09/17 08:59 10/10/17 08:09 50 MG Buspirone HCl (Buspar Tab) 5 mg BID PO 10/09/17 21:00 11/08/17 20:59 10/10/17 08:08 5 MG Cetirizine HCl (zyrTEC TAB) 10 mg QAM PO 10/10/17 09:00 11/09/17 08:59 10/10/17 08:12 10 MG Cimetidine (Tagamet Tab) 400 mg Q12 PO 10/09/17 21:00 11/08/17 20:59 10/10/17 08:08 400 MG Docusate Sodium (coLACE CAP) 100 mg BID PO 10/09/17 21:00 11/08/17 20:59 10/10/17 08:10 100 MG Fexofenadine HCl (Earnestine Tab) 180 mg QPM PO 10/09/17 21:00 11/08/17 20:59 10/09/17 20:00 180 MG Fluticasone Propionate (Flonase Nasal [place]) 2 sprays HS JOEL 10/09/17 21:00 11/08/17 20:59 10/09/17 19:57 2 SPRAYS Folic Acid (Folvite Tab) 1 mg DAILY PO 10/10/17 09:00 11/09/17 08:59 10/10/17 08:09 1 MG Lorazepam (Ativan Tab) 1 mg TID PRN PO 10/09/17 18:00 11/08/17 17:59 Magnesium Chloride (Slow-Mag Tab) 64 mg BID PO 10/09/17 21:00 11/08/17 20:59 10/10/17 08:09 64 MG Methocarbamol (Robaxin Tab) 750 mg QID PO 10/09/17 21:00 11/08/17 20:59 10/10/17 07:31 750 MG Metoprolol Tartrate (Lopressor Tab) 12.5 mg DAILY PO 10/10/17 09:00 11/09/17 08:59 10/10/17 08:12 12.5 MG Multivitamins (Multivitamin Tab) 1 tab QAM PO 10/10/17 09:00 11/09/17 08:59 10/10/17 08:11 1 TAB Oxcarbazepine (Trileptal Tab) 600 mg BID PO 10/09/17 21:00 11/08/17 20:59 10/10/17 08:12 600 MG Oxycodone/ Acetaminophen (Percocet 7.5-325MG Tab) 1 tab Q6H PRN PO 10/09/17 18:00 10/23/17 17:59 10/10/17 04:13 1 TAB Pantoprazole Sodium (Protonix Tab) 40 mg BID PO 10/09/17 21:00 11/08/17 20:59 10/10/17 08:08 40 MG Prednisone (PredniSONE TAB) 2.5 mg QAM PO 10/10/17 09:00 11/09/17 08:59 10/10/17 08:10 2.5 MG Rizatriptan Benzoate (Maxalt Tab) 10 mg UD PRN PO 10/09/17 18:00 11/08/17 17:59 Simvastatin (Zocor Tab) 5 mg QPM PO 10/09/17 21:00 11/08/17 20:59 10/09/17 20:06 5 MG Sodium Chloride (Sodium Chloride Tab) 1 gm BID PO 10/09/17 21:00 11/08/17 20:59 10/10/17 08:08 1 GM Verapamil HCl (Calan-Sr Tab) 240 mg Q12 PO 10/09/17 21:00 11/08/17 20:59 10/10/17 08:11 240 MG Zolpidem Tartrate (Ambien Tab) 10 mg HS PRN PO 10/09/17 18:00 11/08/17 17:59 Calcium/Vitamin D (Caltrate Plus Tab) 1 tab Q12 PO 10/09/17 21:00 11/08/17 20:59 10/10/17 08:10 1 TAB Miscellaneous Information (Order Awaiting Action) 1 ea QS N/A 10/10/17 00:00 11/09/17 00:00 Lubiprostone (Amitiza) 24 mcg HS PO 10/09/17 21:00 11/08/17 20:59 10/09/17 20:00 24 MCG Mirtazapine (Remeron Tab) 45 mg HS PO 10/09/17 21:00 11/08/17 20:59 10/09/17 20:05 45 MG Polyethylene (Miralax Powder Packet) 17 gm DAILY PRN PO 10/09/17 18:30 11/08/17 18:29 Miscellaneous Information (Order Awaiting Action) 1 ea QS N/A 10/10/17 00:00 11/09/17 00:00 Diclofenac Sodium (Voltaren 1% Top Gel) 1 appln TID PRN EXT 10/09/17 22:45 11/08/17 22:44 Pregabalin (Lyrica Cap) 50 mg QAM PO 10/10/17 09:00 11/09/17 08:59 10/10/17 08:38 50 MG Pregabalin (Lyrica Cap) 75 mg QPM PO 10/10/17 21:00 11/09/17 20:59 (Sulma Meehan ., P.A.-C.) Symptomatic Anemia Pancytopenia H/O Autoimmune hemolytic anemia Denies gross bleeding issues FOBT negative S/P 2 units PRBCs Hb:8.1 today--only mildly improved Peripheral smear pending No Bilirubin elevation suggestive of hemolysis Fibrinogen, Absolute retic count normal Received Rituxan 4 days ago which could be contributing Hematology consulted monitor CBC DESIREE on CKD III S/P renal transplant Received IV fluids Resolved Plan to resume lisinopril tomorrow monitor renal function Hyperkalemia Resolved monitor potassium levels I personally reviewed the record. Patient is interviewed and examined at bedside. Patient's care is coordinated with Sulma Meehan PA-C. Please refer to the documentation above for details of patient's presentation and for discussion of other issues. (Pablito Villar MD)
[2017-10-10 12:04] VITALS: BP 147/87; PULSE 66; TEMP 36.9; O2SAT 97
[2017-10-10 15:27] VITALS: BP 149/89; PULSE 56; TEMP 36.9; O2SAT 97
[2017-10-10] MEDS ORDERED: CYCLOSPORINE PO SCH (16:00)
--- NOTE | 2017-10-10 17:22 | Medical Consult ---
Consultation Date of Consultation: Oct 10, 2017. Attending Physician: Pablito Villar MD Reason for Consultation: Acute exacerbation of hemolytic anemia History of Present Illness Mrs. Burgos is a 47 yo F known to the consulting Hematology service. She is a known case of cold agglutinin hemolytic anemia initially diagnosed in February,. Background information: -Diagnosed a case of cold agglutinin hemolytic anemia, cold agglutinin titer was around 1: 20,480, in February,. Her hemoglobin level was around 4.6 g/ dL at that time. -did not respond well with the prednisone therapy, received blood trans support at that time -received Rituxan x4, last cycle was received on 04/01/2014 with gradual improvement of the hemoglobin level. -cold agglutinin titer was negative in May,. -hemoglobin level dropped down to around 6.2 g/dL in April,, received 2 units of PRBC, received Rituxan x4 which was started on 05/17/2015. Gradual improvement of the hemoglobin level noted. - she received Xarelto for brief time for right lower extremity DVT. Follow-up Doppler evaluation done in May, showed no evidence of residual or recurrent DVT. 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 Patient reported to [facility] [place] on 10/09/2017 after not feeling well starting on . She states she was fatigued, lightheaded, dyspneic with minor exertion. She tried resting over the weekend, but ultimately with her complicated medical history she came to [facility] ER for evaluation. She recently started weekly Rituxan x 4 last week as her Hgb was on the downtrend and recurrent cold agglutinin hemolytic anemia was suspected. her work up here at hospital reveals mild elevation LDH, normal ARC, haptoglobin pending. Last Sunday, she her Hgb was 7.6 and was same on admission. Her hemolysis markers last Sunday were positive with elevated LDH and low hapto. Cold agglutinin titer positive on 10/04/17. On admission, had mild DESIREE. Additional history obtained from the patient at bedside. She reports fatigue, lightheadedness and dyspnea on exertion are improved today. She walked down the [place] with PT. She states she is having decreased appetite and some bloating that she attributes to gastroparesis. She denies bleeding from any sites or dark urine. Past Medical/Surgical History Medical Problems: (1) Acute kidney injury Status: Acute (2) DESIREE (acute kidney injury) Status: Acute (3) Dizziness Status: Acute (4) Headache Status: Acute (5) Hemolytic anemia Status: Acute (6) Hyperkalemia Status: Acute (7) Hyponatremia Status: Acute (8) Lightheadedness Status: Acute (9) Nausea & vomiting Status: Acute (10) Symptomatic anemia Status: Acute Social History Problems: (1) History of renal transplant Status: Acute Family History Diabetes mellitus Heart disease Hypertension Kidney disease Kidney stones Lung disease Social History Smoking Status: Former Smoker Alcohol Use: occasionally Marital Status: Housing Status: lives with family Occupation Status: employed Allergies Coded Allergies: Morphine (Verified Allergy, Intermediate, HIVES, HAS HAD CODEINE W/O PROBLEM, 03/28/17) HIVES, HAS HAD CODEINE W/O PROBLEM HAS ALSO TOLERATED TRAMADOL Hydralazine (Verified Allergy, Unknown, HIVES, 03/28/17) Oxycodone (Unverified Adverse Reaction, Severe, BLOAT, UNABLE TO EAT, CONSTIPATION, 03/28/17) THIS IS OXYCONTIN ISSUE...She is taking and able to take IR products Valacyclovir (Unverified Adverse Reaction, Intermediate, NAUSEA, VOMITING , DEHYDRATION, 03/28/17) Nitrates, Organic (Verified Adverse Reaction, Unknown, migraines, 03/28/17) Current Inpatient Medications Current Inpatient Medications Medications (Trade) Dose Ordered Sig/Jose G Route Start Time Stop Time Status Last Admin Dose Admin Acetaminophen (Tylenol Tab) 650 mg Q4H PRN PO 10/09/17 17:45 11/08/17 17:44 10/10/17 08:21 650 MG Ondansetron HCl (Zofran Inj) 4 mg Q6H PRN IV 10/09/17 17:45 11/08/17 17:44 Ascorbic Acid (Vitamin C Tab) 500 mg BID PO 10/09/17 21:00 11/08/17 20:59 10/10/17 08:10 500 MG Aspirin (Ecotrin Tab) 81 mg QAM PO 10/10/17 09:00 11/09/17 08:59 10/10/17 08:11 81 MG Azathioprine (Imuran Tab) 50 mg QAM PO 10/10/17 09:00 11/09/17 08:59 10/10/17 08:09 50 MG Buspirone HCl (Buspar Tab) 5 mg BID PO 10/09/17 21:00 11/08/17 20:59 10/10/17 08:08 5 MG Cetirizine HCl (zyrTEC TAB) 10 mg QAM PO 10/10/17 09:00 11/09/17 08:59 10/10/17 08:12 10 MG Cimetidine (Tagamet Tab) 400 mg Q12 PO 10/09/17 21:00 11/08/17 20:59 10/10/17 08:08 400 MG Docusate Sodium (coLACE CAP) 100 mg BID PO 10/09/17 21:00 11/08/17 20:59 10/10/17 08:10 100 MG Fexofenadine HCl (Earnestine Tab) 180 mg QPM PO 10/09/17 21:00 11/08/17 20:59 10/09/17 20:00 180 MG Fluticasone Propionate (Flonase Nasal [place]) 2 sprays HS JOEL 10/09/17 21:00 11/08/17 20:59 10/09/17 19:57 2 SPRAYS Folic Acid (Folvite Tab) 1 mg DAILY PO 10/10/17 09:00 11/09/17 08:59 10/10/17 08:09 1 MG Lorazepam (Ativan Tab) 1 mg TID PRN PO 10/09/17 18:00 11/08/17 17:59 Magnesium Chloride (Slow-Mag Tab) 64 mg BID PO 10/09/17 21:00 11/08/17 20:59 10/10/17 08:09 64 MG Metoprolol Tartrate (Lopressor Tab) 12.5 mg DAILY PO 10/10/17 09:00 11/09/17 08:59 10/10/17 08:12 12.5 MG Multivitamins (Multivitamin Tab) 1 tab QAM PO 10/10/17 09:00 11/09/17 08:59 10/10/17 08:11 1 TAB Oxcarbazepine (Trileptal Tab) 600 mg BID PO 10/09/17 21:00 11/08/17 20:59 10/10/17 08:12 600 MG Oxycodone/ Acetaminophen (Percocet 7.5-325MG Tab) 1 tab Q6H PRN PO 10/09/17 18:00 10/23/17 17:59 10/10/17 16:44 1 TAB Pantoprazole Sodium (Protonix Tab) 40 mg BID PO 10/09/17 21:00 11/08/17 20:59 10/10/17 08:08 40 MG Prednisone (PredniSONE TAB) 2.5 mg QAM PO 10/10/17 09:00 11/09/17 08:59 10/10/17 08:10 2.5 MG Rizatriptan Benzoate (Maxalt Tab) 10 mg UD PRN PO 10/09/17 18:00 11/08/17 17:59 Simvastatin (Zocor Tab) 5 mg QPM PO 10/09/17 21:00 11/08/17 20:59 10/09/17 20:06 5 MG Sodium Chloride (Sodium Chloride Tab) 1 gm BID PO 10/09/17 21:00 11/08/17 20:59 10/10/17 08:08 1 GM Verapamil HCl (Calan-Sr Tab) 240 mg Q12 PO 10/09/17 21:00 11/08/17 20:59 10/10/17 08:11 240 MG Zolpidem Tartrate (Ambien Tab) 10 mg HS PRN PO 10/09/17 18:00 11/08/17 17:59 Calcium/Vitamin D (Caltrate Plus Tab) 1 tab Q12 PO 10/09/17 21:00 11/08/17 20:59 10/10/17 08:10 1 TAB Miscellaneous Information (Order Awaiting Action) 1 ea QS N/A 10/10/17 00:00 11/09/17 00:00 Lubiprostone (Amitiza) 24 mcg HS PO 10/09/17 21:00 11/08/17 20:59 10/09/17 20:00 24 MCG Mirtazapine (Remeron Tab) 45 mg HS PO 10/09/17 21:00 11/08/17 20:59 10/09/17 20:05 45 MG Polyethylene (Miralax Powder Packet) 17 gm DAILY PRN PO 10/09/17 18:30 11/08/17 18:29 Diclofenac Sodium (Voltaren 1% Top Gel) 1 appln TID PRN EXT 10/09/17 22:45 11/08/17 22:44 Pregabalin (Lyrica Cap) 50 mg QAM PO 10/10/17 09:00 11/09/17 08:59 10/10/17 08:38 50 MG Pregabalin (Lyrica Cap) 75 mg QPM PO 10/10/17 21:00 11/09/17 20:59 Methocarbamol (Robaxin Tab) 750 mg Q6 PO 10/10/17 12:00 11/09/17 11:59 10/10/17 11:54 750 MG Non-Formulary Medication (Non-Formulary Patient'S Own Med) 4 ea HS PO 10/10/17 21:00 11/09/17 20:59 Non-Formulary Medication (Non-Formulary Patient'S Own Med) 5 ea QAM PO 10/11/17 09:00 11/10/17 08:59 Review of Systems Constitutional: + fatigue, No fever Respiratory: + dyspnea on exertion, No cough Cardiovascular: No chest pain, No edema Abdomen: + problem reported (see HPI), No GI bleeding Genitourinary - Female: No dysuria, No hematuria Integumentary: No color change Physical Exam Date Time Temp Pulse Resp B/P (MAP) Pulse Ox O2 Delivery O2 Flow Rate FiO2 10/10/17 15:27 36.9 56 18 149/89 (109) 97 Room Air 10/10/17 12:04 36.9 66 18 147/87 (107) 97 Room Air 10/10/17 08:00 Room Air 10/10/17 07:42 36.6 64 16 146/81 (102) 96 Room Air 10/10/17 04:00 36.9 59 17 113/72 (86) 96 Room Air 10/09/17 23:59 Room Air 10/09/17 23:01 36.9 65 18 118/76 98 10/09/17 22:01 36.6 69 18 110/70 95 10/09/17 21:31 36.4 74 18 117/79 97 10/09/17 21:30 36.4 61 16 161/107 100 Room Air 10/09/17 21:15 36.6 73 15 127/82 96 10/09/17 21:01 36.8 70 15 123/77 96 10/09/17 19:26 37.0 61 16 159/95 98 10/09/17 18:37 36.6 65 16 133/87 98 10/09/17 18:07 36.6 60 14 124/80 98 10/09/17 17:51 36.5 61 16 131/82 98 10/09/17 17:48 61 10/09/17 17:09 61 16 136/68 98 Room Air General Appearance: no apparent distress ENT: hearing grossly normal Respiratory/Chest: lungs clear, no respiratory distress Cardiovascular: regular rate, rhythm, no edema Abdomen/GI: non tender, soft Extremities/Musculoskelatal: no calf tenderness, no pedal edema Neurologic/Psych: alert, oriented x 3 Skin: normal color Laboratory Results Last 24 Hours Test 10/09/17 23:21 10/10/17 05:18 Fibrinogen 245 mg/dl White Blood Count 2.77 K/uL Red Blood Count 2.70 M/uL Hemoglobin 8.1 g/dL Hematocrit 23.2 % Mean Corpuscular Volume 85.9 fL Mean Corpuscular Hemoglobin 30.0 pg Mean Corpuscular Hemoglobin Concent 34.9 g/dl Platelet Count 79 K/uL Mean Platelet Volume 9.7 fL RDW Standard Deviation 46.5 fL RDW Coefficient of Variation 15.1 % Nucleated RBC Absolute Count (auto) 0.02 K/uL Neutrophils % (Manual) 50.0 % Lymphocytes % (Manual) 37.5 % Monocytes % (Manual) 8.0 % Eosinophils % (Manual) 2.7 % Metamyelocytes % 0.9 % Blast Cells % 0.9 % Nucleated Red Blood Cells % 0.7 % Neutrophils # (Manual) 1.39 K/uL Total Absolute Neutrophils 1.39 K/uL Lymphocytes # (Manual) 1.04 K/uL Total Absolute Lymphocytes 1.04 K/uL Monocytes # (Manual) 0.22 K/uL Eosinophils # (Manual) 0.07 K/uL Metamyelocytes # 0.02 K/uL Blast Cells # 0.02 K/uL Blood Smear Review Red Blood Cell Morphology Unremarkable Sodium Level 136 mmol/L Potassium Level 4.5 mmol/L Chloride Level 106 mmol/L Carbon Dioxide Level 23 mmol/L Anion Gap 7.0 mmol/L Blood Urea Nitrogen 31 mg/dl Creatinine 1.09 mg/dl Est Creatinine Clear Calc Drug Dose 56.3 ml/min Estimated GFR () 70.5 Estimated GFR (Non- 60.8 BUN/Creatinine Ratio 28.1 Random Glucose 86 mg/dl Calcium Level 8.0 mg/dl Assessment & Plan 1. 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 Symptomatic anemia 3. DESIREE * Patient is currently on 4th round of Rituxan for hemolytic anemia, started last week * Patient became increasingly symptomatic of anemia over weekend and so on presentation had 2 units PRBC with mild improvement in anemia * Advised to monitor CBCD, check again tomorrow and if above 8 no need for tranfusion * Patient should be able to stabilized and discharged prior to end of week so she can remain on track with Rituxan * Counseled patient that we can do weekly CBC and order PRBC as outpatient * DESIREE resolved with IVF Thanks for the consult. Dr. Clemons is the attending earth burner- please see his addendum. I performed history and physical examination of the patient. ~I have discussed the patient's case, impression and plan with Mary Culver PA-C. Her note reflects my findings and plan. She is a 47-year-old female, a known case of cold agglutinin hemolytic anemia initially diagnosed in 2013, did not respond quite well with the prednisone therapy at that time, responded well with the Rituxan, had received several courses of Rituxan in the past, recently she had once again evidence of hemolytic anemia with positive coordinating titer and the started her on Rituxan , received 1 cycle of chemotherapy last week, now admitted for worsening anemia which ongoing hemolysis and worsening renal function, received 2 units of PRBC, clinically feeling much better, improvement of the kidney from cities noted, Last imaging studies abdomen done in August 2016 showed splenomegaly measuring up to 16 cm in the size. No definite retroperitoneal lymphadenopathy noted. Contrary calcification consistent with chronic pancreatitis noted. Blood workup done recently shows evidence of pancytopenia which is most likely to the splenomegaly. I would like to get CT scan of the abdomen and pelvis without intravenous contrast for further evaluation. She is due for 2nd cycle of Rituxan this week on Sunday, planning to have Rituxan as an outpatient on that day. Chad Clemons MD Hem/Onc
[2017-10-10 19:11] VITALS: BP 154/94; PULSE 64; TEMP 36.6; O2SAT 97
[2017-10-10] MEDS ORDERED: CYCLOSPORINE MODIFIED 50 MG PO SCH ×2 (21:00)
--- NOTE | 2017-10-10 21:42 | DIAGNOSTIC IMAGING REPORT ---
CT SCAN OF THE ABDOMEN AND PELVIS WITHOUT CONTRAST CLINICAL HISTORY: Splenic leak, pancytopenia, abnormal kidney function. History of renal transplant. COMPARISON STUDY: 09/06/2016 TECHNIQUE: CT scan of the abdomen and pelvis was performed from the lung bases to the proximal femurs. Images are reviewed in the axial, sagittal, and coronal planes. IV contrast was not administered for this examination. A dose lowering technique was utilized adhering to the principles of ALARA. CT DOSE: 273.52 mGy.cm FINDINGS: Lower chest: The heart is normal in size and configuration, without pericardial effusion. The lung bases and pleural spaces are clear. Liver: There is a stable 42 mm right lobe hepatic cyst. Gallbladder: Unremarkable. Spleen: The spleen is enlarged measuring 15.8 cm. Pancreas: There are multiple pancreatic calcifications similar to the prior study and consistent with chronic pancreatitis. In addition multiple small cystic pancreatic lesions are suspected. Adrenal glands: Unremarkable. Kidneys: The right kidney is markedly atrophic. The left kidney is markedly atrophic and there are multiple left renal cysts measuring up to 45 mm. There is a right lower quadrant renal transplant. There is a 21 mm exophytic lesion arising from the upper pole of the transplant kidney likely representing a cyst. Bowel: There are no transition zones indicate bowel obstruction. There is moderate fecal retention. The appendix appears normal. There is no acute diverticulitis. Peritoneum: There is no intraperitoneal free air or abdominal ascites. Vasculature: The abdominal aorta is normal in course and caliber. Adenopathy: None. Pelvic viscera: The bladder, and pelvic viscera are unremarkable. Skeletal structures: There is slight nonspecific sclerosis of the L4 vertebra, possibly secondary to renal osteodystrophy. The finding remains unchanged from the prior study IMPRESSION: 1. No evidence of bowel obstruction. No evidence of free air 2. Fecal retention suggesting underlying constipation 3. Markedly atrophic council kidneys. Right lower quadrant renal transplant. 4. Normal appendix 5. Multiple pancreatic calcifications consistent with chronic pancreatitis. Persistent small cystic pancreatic lesions similar to the preceding study 6. Stable splenomegaly (15.8 cm) 7. Stable right lobe hepatic cyst Electronically signed by: Skyler Vidales M.D. 10/10/2017 9:41 PM Dictated Date/Time: 10/10/2017 9:32 PM
[2017-10-10] MEDS: MIRTAZAPINE TAB 15 MG TAB PO SCH (21:43)
[2017-10-10] MEDS: SIMVASTATIN 5 MG TAB PO SCH (21:44)
[2017-10-10] MEDS: FLUTICASONE PROPIONATE NA SPR 16 GM BTL NAE SCH (21:47)
[2017-10-10] MEDS: FEXOFENADINE HCL 180 MG TAB PO SCH (21:47)
[2017-10-10] MEDS: LUBIPROSTONE 8 MCG CAP PO SCH (21:47)
[2017-10-10 23:58] VITALS: BP 162/97; PULSE 72; TEMP 36.8; O2SAT 97
[2017-10-11 03:31] VITALS: BP 152/98; PULSE 64; TEMP 37; O2SAT 98
[2017-10-11] MEDS: METHOCARBAMOL 750 MG TAB PO SCH ×2 (06:35→09:59)
[2017-10-11] MEDS: OXYCODONE/ACETAMINOPHEN 7.5-325 TAB PO PRN ×2 (06:36→13:53)
[2017-10-11 07:16] VITALS: BP 119/81; PULSE 60; TEMP 36.7; O2SAT 98
[2017-10-11 07:23] LABS: CALCIUM 8.6 mg/dl (8.5-10.1); CREATININE 1.41 mg/dl (0.60-1.20); POTASSIUM 4.3 mmol/L (3.5-5.1)
[2017-10-11 07:36] LABS: HEMATOCRIT 27.5 % (37-47); HEMOGLOBIN 9.9 g/dL (12.0-16.0); MEAN CELL VOLUME 85.7 fL (80-100); MEAN CORPUSCULAR HEMOGLOBIN 30.8 pg (25-34); NUCLEATED RED BLOOD CELL ABS 0.08 K/uL (0-0); RED CELL DISTRIBUTION WIDTH CV 15.3 % (11.5-14.5); RED CELL DISTRIBUTION WIDTH SD 46.1 fL (36.4-46.3); WHITE BLOOD COUNT 3.27 K/uL (4.8-10.8)
[2017-10-11 07:54] LABS: MEAN PLATELET VOLUME 9.7 fL (7.4-10.4); PLATELET COUNT 93 K/uL (130-400)
--- NOTE | 2017-10-11 08:56 | Progress Note ---
Medicine Progress Note Date & Time of Visit: Oct 11, 2017 at 08:55. (Sulma Meehan, P.A.-C.) Subjective Patient seen and examined. No longer experiencing dyspnea on exertion with short distances. Has been participating in PT without a problem. + Frontal headache, states that it is not a migraine + Intermittent dizziness (chronic) Denies fever, chills, visual changes, chest pain, SOB, abd pain, hematuria or blood in stool. Feels better today and is ready to go home. (Sulma Meehan, P.A.-C.) Seen and examined at bedside Doing better today Had pacemaker adjusted by cardiology today No new symptoms SOB better (Pablito Villar MD) Objective Last 8 Hrs Date Time Temp Pulse Resp B/P (MAP) Pulse Ox O2 Delivery O2 Flow Rate FiO2 10/11/17 07:16 36.7 60 20 119/81 (94) 98 Room Air 10/11/17 03:31 37.0 64 17 152/98 (116) 98 Room Air Physical Exam: General Appearance: WD/WN, no apparent distress Head: normocephalic, atraumatic Eyes: normal inspection, PERRL, EOMI ENT: hearing grossly normal, pharynx normal Neck: supple, no JVD, no adenopathy Respiratory/Chest: lungs clear to auscultation. No wheezes, rales or rhonci. No respiratory distress or accessory muscle use Cardiovascular: regular rate, rhythm, systolic murmur, normal peripheral pulses Abdomen/GI: normal bowel sounds, soft, non-tender to palpation Extremities/Musculoskelatal: normal inspection, no calf tenderness, normal capillary refill, no pedal edema Neurologic/Psych: alert, normal mood/affect, oriented x 3 Skin: normal color, warm/dry + pallor Laboratory Results: Last 24 Hours Test 10/11/17 06:35 White Blood Count 3.27 K/uL Red Blood Count 3.21 M/uL Hemoglobin 9.9 g/dL Hematocrit 27.5 % Mean Corpuscular Volume 85.7 fL Mean Corpuscular Hemoglobin 30.8 pg Mean Corpuscular Hemoglobin Concent 36.0 g/dl Platelet Count 93 K/uL Mean Platelet Volume 9.7 fL RDW Standard Deviation 46.1 fL RDW Coefficient of Variation 15.3 % Nucleated RBC Absolute Count (auto) 0.08 K/uL Neutrophils % (Manual) 52.6 % Lymphocytes % (Manual) 40.4 % Monocytes % (Manual) 7.0 % Nucleated Red Blood Cells % 2.5 % Neutrophils # (Manual) 1.72 K/uL Total Absolute Neutrophils 1.72 K/uL Lymphocytes # (Manual) 1.32 K/uL Total Absolute Lymphocytes 1.32 K/uL Monocytes # (Manual) 0.23 K/uL Red Blood Cell Morphology Unremarkable Sodium Level 132 mmol/L Potassium Level 4.3 mmol/L Chloride Level 101 mmol/L Carbon Dioxide Level 25 mmol/L Anion Gap 7.0 mmol/L Blood Urea Nitrogen 31 mg/dl Creatinine 1.41 mg/dl Est Creatinine Clear Calc Drug Dose 43.5 ml/min Estimated GFR () 51.6 Estimated GFR (Non- 44.6 BUN/Creatinine Ratio 22.1 Random Glucose 85 mg/dl Calcium Level 8.6 mg/dl Diagnostic Imaging: CT abd/pelvis: IMPRESSION: 1. No evidence of bowel obstruction. No evidence of free air 2. Fecal retention suggesting underlying constipation 3. Markedly atrophic telida kidneys. Right lower quadrant renal transplant. 4. Normal appendix 5. Multiple pancreatic calcifications consistent with chronic pancreatitis. Persistent small cystic pancreatic lesions similar to the preceding study 6. Stable splenomegaly (15.8 cm) 7. Stable right lobe hepatic cyst (Sulma Meehan ., P.A.-C.) Physical Exam: General Appearance:Moderately built and nourished, no apparent distress Head: normocephalic, Atraumatic Eyes: normal inspection, EOMI, PERRL, +Pallor Neck: supple, Trachea midline Respiratory/Chest: Normal breath sounds, CTA Cardiovascular: S1, S2, +systolic murmur Abdomen/GI:Soft, Non tender, Bowel sounds present Extremities/Musculoskelatal:normal inspection, no edema Neurologic/Psych:AAOX3, grossly no focal neurological deficits Skin:normal color,warm, well healed surgical scar on abdomen (Pablito Villar MD) Assessment & Plan This is a 46yo F with a PMH of autoimmune hemolytic anemia, HTN, chronic hyponatremia, history of AVR/aortic root repair replacement with bioprosthetic valve (in Jan 2017), complete heart block (s/p pacemaker placement), CRI (s/p kidney transplant in 1990 on immunosuppression therapy), history of cold agglutinin disease, past tobacco abuse, history of pulmonary nodules, chronic pain and ulcerative colitis per records who presents generalized weakness and dyspnea and was found to be anemic. 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 Blasts and schistocytes are not seen. 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 (Cold agglutinin titer positive on 10/04/17) -Pancytopenia most likely due to the splenomegaly (previous noted on August 2016 CT scan) -Okay for discharge, now that hgb is stable at 9.9 -Plan for 2nd cycle of Rituxan this week on Sunday as out-patient -Will monitor CBC and transfuse if indicated as out-patient Bradycardia -HR in low 50s on telemetry and EKG yesterday -Cardio consulted -Medtronic pacemaker was checked with the assistance of the [employer] field sales representative - Pacemaker was functioning appropriately, without malfunction - Settings were altered to hopefully better suit her needs given her history of postoperative and now ongoing AV block Complete heart block (s/p pacemaker placement) -Continue baby aspirin, statin, beta kristi DESIREE on CKD III -- resolving -Cr elevated to 1.7 initially (baseline ~1) -Cr improved to 1.4 after gentle fluids -Encouraged to increase PO intake at home -Resume lisinopril upon discharge Chronic hyponatremia -Sodium stable at 131 (upper end of baseline) -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 Ravi Dispo: Admitted to telemetry. Plan to discharge home this afternoon. Consultants: Heme/onc, cardiology, PT, OT Current Inpatient Medications: Current Inpatient Medications Medications (Trade) Dose Ordered Sig/Jose G Route Start Time Stop Time Status Last Admin Dose Admin Acetaminophen (Tylenol Tab) 650 mg Q4H PRN PO 10/09/17 17:45 11/08/17 17:44 10/10/17 08:21 650 MG Ondansetron HCl (Zofran Inj) 4 mg Q6H PRN IV 10/09/17 17:45 11/08/17 17:44 10/10/17 19:16 4 MG Ascorbic Acid (Vitamin C Tab) 500 mg BID PO 10/09/17 21:00 11/08/17 20:59 10/10/17 21:45 500 MG Aspirin (Ecotrin Tab) 81 mg QAM PO 10/10/17 09:00 11/09/17 08:59 10/10/17 08:11 81 MG Azathioprine (Imuran Tab) 50 mg QAM PO 10/10/17 09:00 11/09/17 08:59 10/10/17 08:09 50 MG Buspirone HCl (Buspar Tab) 5 mg BID PO 10/09/17 21:00 11/08/17 20:59 10/10/17 21:46 5 MG Cetirizine HCl (zyrTEC TAB) 10 mg QAM PO 10/10/17 09:00 11/09/17 08:59 10/10/17 08:12 10 MG Cimetidine (Tagamet Tab) 400 mg Q12 PO 10/09/17 21:00 11/08/17 20:59 10/10/17 21:47 400 MG Docusate Sodium (coLACE CAP) 100 mg BID PO 10/09/17 21:00 11/08/17 20:59 10/10/17 21:45 100 MG Fexofenadine HCl (Earnestine Tab) 180 mg QPM PO 10/09/17 21:00 11/08/17 20:59 10/10/17 21:47 180 MG Fluticasone Propionate (Flonase Nasal [place]) 2 sprays HS JOEL 10/09/17 21:00 11/08/17 20:59 10/10/17 21:47 2 SPRAYS Folic Acid (Folvite Tab) 1 mg DAILY PO 10/10/17 09:00 11/09/17 08:59 10/10/17 08:09 1 MG Lorazepam (Ativan Tab) 1 mg TID PRN PO 10/09/17 18:00 11/08/17 17:59 Magnesium Chloride (Slow-Mag Tab) 64 mg BID PO 10/09/17 21:00 11/08/17 20:59 10/10/17 21:45 64 MG Metoprolol Tartrate (Lopressor Tab) 12.5 mg DAILY PO 10/10/17 09:00 11/09/17 08:59 10/10/17 08:12 12.5 MG Multivitamins (Multivitamin Tab) 1 tab QAM PO 10/10/17 09:00 11/09/17 08:59 10/10/17 08:11 1 TAB Oxcarbazepine (Trileptal Tab) 600 mg BID PO 10/09/17 21:00 11/08/17 20:59 10/10/17 21:42 600 MG Oxycodone/ Acetaminophen (Percocet 7.5-325MG Tab) 1 tab Q6H PRN PO 10/09/17 18:00 10/23/17 17:59 10/11/17 06:36 1 TAB Pantoprazole Sodium (Protonix Tab) 40 mg BID PO 10/09/17 21:00 11/08/17 20:59 10/10/17 21:45 40 MG Prednisone (PredniSONE TAB) 2.5 mg QAM PO 10/10/17 09:00 11/09/17 08:59 10/10/17 08:10 2.5 MG Rizatriptan Benzoate (Maxalt Tab) 10 mg UD PRN PO 10/09/17 18:00 11/08/17 17:59 Simvastatin (Zocor Tab) 5 mg QPM PO 10/09/17 21:00 11/08/17 20:59 10/10/17 21:44 5 MG Sodium Chloride (Sodium Chloride Tab) 1 gm BID PO 10/09/17 21:00 11/08/17 20:59 10/10/17 21:44 1 GM Verapamil HCl (Calan-Sr Tab) 240 mg Q12 PO 10/09/17 21:00 11/08/17 20:59 10/10/17 21:46 240 MG Zolpidem Tartrate (Ambien Tab) 10 mg HS PRN PO 10/09/17 18:00 11/08/17 17:59 10/10/17 23:30 10 MG Calcium/Vitamin D (Caltrate Plus Tab) 1 tab Q12 PO 10/09/17 21:00 11/08/17 20:59 10/10/17 21:46 1 TAB Miscellaneous Information (Order Awaiting Action) 1 ea QS N/A 10/10/17 00:00 11/09/17 00:00 Lubiprostone (Amitiza) 24 mcg HS PO 10/09/17 21:00 11/08/17 20:59 10/10/17 21:47 24 MCG Mirtazapine (Remeron Tab) 45 mg HS PO 10/09/17 21:00 11/08/17 20:59 10/10/17 21:43 45 MG Polyethylene (Miralax Powder Packet) 17 gm DAILY PRN PO 10/09/17 18:30 11/08/17 18:29 Diclofenac Sodium (Voltaren 1% Top Gel) 1 appln TID PRN EXT 10/09/17 22:45 11/08/17 22:44 Pregabalin (Lyrica Cap) 50 mg QAM PO 10/10/17 09:00 11/09/17 08:59 10/10/17 08:38 50 MG Pregabalin (Lyrica Cap) 75 mg QPM PO 10/10/17 21:00 11/09/17 20:59 10/10/17 21:44 75 MG Methocarbamol (Robaxin Tab) 750 mg Q6 PO 10/10/17 12:00 11/09/17 11:59 10/11/17 06:35 750 MG Non-Formulary Medication (Non-Formulary Patient'S Own Med) 4 ea HS PO 10/10/17 21:00 11/09/17 20:59 10/10/17 21:43 4 EA Non-Formulary Medication (Non-Formulary Patient'S Own Med) 5 ea QAM PO 10/11/17 09:00 11/10/17 08:59 (Sulma Meehan ., P.A.-C.) Symptomatic Anemia Pancytopenia H/O Autoimmune hemolytic anemia Denies gross bleeding issues FOBT negative S/P 2 units PRBCs Hb:8.1 >>>9.9 Peripheral smear not suggestive of hemolysis No Bilirubin elevation suggestive of hemolysis Fibrinogen, Absolute retic count normal Received Rituxan 4 days ago which could be contributing Appreciate Hematology Input monitor CBC Planned next Rituxan therapy later this week DESIREE on CKD III S/P renal transplant Received IV fluids monitor renal function Bradycardia H/O Complete heart block Pacemaker was adjusted today Appreciate Cardiology help I personally reviewed the record. Patient is interviewed and examined at bedside. Patient's care is coordinated with Sulma Meehan PA-C. Please refer to the documentation above for details of patient's presentation and for discussion of other issues. (Pablito Villar MD)
[2017-10-11] MEDS ORDERED: CYCLOSPORINE MODIFIED 50 MG PO SCH ×2 (09:00)
[2017-10-11] MEDS: CETIRIZINE HCL 10 MG TAB PO SCH (09:59)
[2017-10-11] MEDS: AZATHIOPRINE 50 MG TAB PO SCH (09:59)
[2017-10-11] MEDS: DOCUSATE SODIUM 100 MG CAP PO SCH (10:00)
[2017-10-11] MEDS: METOPROLOL TARTRATE 25 MG TAB PO SCH (10:00)
[2017-10-11] MEDS: PANTOprazole SOD 40 MG TAB PO SCH (10:00)
[2017-10-11] MEDS: MULTIVITAMIN TAB PO SCH (10:00)
[2017-10-11] MEDS: VERAPAMIL HCL 240 MG TABCR PO SCH (10:01)
[2017-10-11] MEDS: OXCARBAZEPINE 150 MG TAB PO SCH (10:01)
[2017-10-11] MEDS: SODIUM CHLORIDE 1 GM TAB PO SCH (10:04)
[2017-10-11] MEDS: MAGNESIUM CHLORIDE 64MG DELAYED REL TAB PO SCH (10:04)
[2017-10-11] MEDS: CIMETIDINE 400 MG TAB PO SCH (10:04)
[2017-10-11] MEDS: CALCIUM 600MG + VIT D 400 IU TAB PO SCH (10:05)
[2017-10-11] MEDS: ASPIRIN 81 MG ECTAB PO SCH (10:05)
[2017-10-11] MEDS: ASCORBIC ACID 500 MG TAB PO SCH (10:17)
[2017-10-11] MEDS: PREGABALIN 50 MG CAP PO SCH (10:18)
[2017-10-11] MEDS ORDERED: NURSING VERBAL MED ORDER ONE (10:30)
[2017-10-11 10:52] VITALS: BP 124/78; PULSE 69; TEMP 36.5; O2SAT 98
--- NOTE | 2017-10-11 14:28 | Cardiology Consultation ---
Cardiology Consultation Date of Consultation: Oct 11, 2017 History of Present Illness Patient is a 47 year old female seen in cardiology consultation per the request of Dr. Villar for bradycardia noted on telemetry and EKG. Patient's primary grave digger is Dr. Rizo of our practice. Her most recent outpatient cardiology follow-up visit was with her back around [facility] on 08/20/17. She has a complex past cardiac and noncardiac history as delineated below. She presented to [facility] with chief complaint of exertional shortness of breath and recent outpatient findings of anemia. She has past history of cold agglutinin induced hemolytic anemia for which she has been on immunotherapy with Rituxan in the past. Her presenting hemoglobin was 7.6 g/dL and it has improved to 9.9 after 2 units of packed red blood cells. History on telemetry, there is a brief interval when her heart rate was 50 bpm, this is also captured on EKG yesterday 10/10/2017. Cardiology was therefore consulted to assess her pacemaker function. History Past Medical History: 1. 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 She is on chronic immunosuppressive therapy 2. Hypertension 3. Ulcerative colitis 4. History of cold agglutinin induced hemolytic anemia 5. History of severe aortic valve regurgitation prompting bioprosthetic aortic valve replacement and root replacement on 01/22/17 6. Post surgical aVR the patient developed postoperative high-grade AV block prompting implantation of a dual-chamber Medtronic permanent pacemaker in January 2017 Past Surgical History: Renal transplant 2, aortic valve replacement, permanent pacemaker placement as outlined above Social History: The patient quit smoking in 2016 Family History: Notable for heart disease in her grandparents. Details unknown Review Of Systems 10 point review of systems is reviewed and is negative with exception of that above Allergies Coded Allergies: Morphine (Verified Allergy, Intermediate, HIVES, HAS HAD CODEINE W/O PROBLEM, 03/28/17) HIVES, HAS HAD CODEINE W/O PROBLEM HAS ALSO TOLERATED TRAMADOL Hydralazine (Verified Allergy, Unknown, HIVES, 03/28/17) Oxycodone (Unverified Adverse Reaction, Severe, BLOAT, UNABLE TO EAT, CONSTIPATION, 03/28/17) THIS IS OXYCONTIN ISSUE...She is taking and able to take IR products Valacyclovir (Unverified Adverse Reaction, Intermediate, NAUSEA, VOMITING , DEHYDRATION, 03/28/17) Nitrates, Organic (Verified Adverse Reaction, Unknown, migraines, 03/28/17) Medications Reported Home Medications Medications Dose Route/Sig Max Daily Dose Days Date Category Dose Instructions Lopressor (Metoprolol Tartrate) 25 Mg Tab 0.5 Tab PO DAILY 10/09/17 Reported Glucosamine & Fish Oil (Glucosamine-Fish Oil-Epa-Dha) 1 Cap Cap 1 Cap PO Q12 10/09/17 Reported Slow-Mag Tab (Magnesium Chloride) 64 Mg Tabcr 64 Mg PO BID 10/09/17 Reported Rizatriptan Benzoate 10 Mg Tab 10 Mg PO UD PRN 10/09/17 Reported Lisinopril 20 Mg Tab 20 Mg PO HS 10/09/17 Reported Simvastatin 5 Mg Tab 5 Mg PO QPM 10/09/17 Reported Azathioprine 50 Mg Tab 50 Mg PO QAM 10/09/17 Reported Pantoprazole Sodium (Pantoprazole) 40 Mg Tab 40 Mg PO BID 10/09/17 Reported Verapamil HCl ER (Verapamil HCl) 240 Mg Tabcr 240 Mg PO Q12 10/09/17 Reported Mirtazapine 45 Mg Tab 45 Mg PO HS 10/09/17 Reported Buspirone HCl 5 Mg Tab 5 Mg PO BID 10/09/17 Reported Lorazepam 1 Mg Tab 1 Mg PO TID PRN 10/09/17 Reported Sodium Chloride 1 Gm Tab 1 Gm PO BID 10/09/17 Reported Lyrica (Pregabalin) 75 Mg Cap 50 Mg PO QAM 10/09/17 Reported Zolpidem Tartrate 10 Mg Tab 10 Mg PO HS PRN 10/09/17 Reported Percocet 7.5MG/325MG (Oxycodone/Acetaminophen) Tab 1 Tab PO Q6H PRN 10/09/17 Reported Cyclosporine Modified (Cyclosporine Modified (For Shakir) 50 Mg Cap 250 Mg PO QAM 10/09/17 Reported Methocarbamol 750 Mg Tab 750 Mg PO Q6H 10/09/17 Reported Cyclosporine Modified (Cyclosporine Modified (For Shakir) 50 Mg Cap 200 Mg PO HS 10/09/17 Reported Zaditor 0.025% Oph (Ketotifen Fumarate (Ophth)) 0.025 % Fredy 1 Drop OP UD 03/28/17 Reported Lyrica (Pregabalin) 50 Mg Cap 75 Mg PO QPM 03/28/17 Reported Calcium 600+D 600-800 mg-Unit (Calcium Carbonate-Cholecalcife) 1 Tab Tab 1 Tab PO Q12 03/28/17 Reported Earnestine (Fexofenadine Hcl) 180 Mg Tab 180 Mg PO QPM 03/28/17 Reported Aspirin Ec (Aspirin) 81 Mg Tab 81 Mg PO QAM 03/28/17 Reported Miralax (Polyethylene Glycol 3350) 1 Pow Pow 17 Gm PO DAILY PRN 02/15/17 Reported Amitiza (Lubiprostone) 24 Mcg Cap 24 Mcg PO HS 10/20/16 Reported Benadryl Allergy (Diphenhydramine Hcl) 25 Mg Tab 25 Mg PO UD PRN 10/20/16 Reported Folic Acid 1 Mg Tab 1 Mg PO DAILY 10/20/16 Reported Diclofenac Sodium (Diclofenac Sodium (Topical)) 1 % Gel 4 Gm TOP TID PRN 09/06/16 Reported APPLY DIRECTED TO AFFECTED AREA(s) Trileptal (Oxcarbazepine) 600 Mg Tab 600 Mg PO BID 09/06/16 Reported Tagamet (Cimetidine) 400 Mg Tab 400 Mg PO Q12 09/06/16 Reported Flonase Allergy Relief (Fluticasone Propionate (Nasal)) 50 Mcg/Act Spr 2 Sprays JOEL HS 09/06/16 Reported Colace (Docusate Sodium) 100 Mg Cap 100 Mg PO BID 09/06/16 Reported Ascorbic Acid 500 Mg Tab 500 Mg PO BID 09/06/16 Reported Zyrtec (Cetirizine HCl) 10 Mg Tab 10 Mg PO QAM 02/10/16 Reported Biotin 5,000 Mcg Sub 10,000 Mcg PO QAM 02/10/16 Reported Zofran (Ondansetron HCl) 4 Mg Tab 4 Mg PO UD PRN 05/05/15 Reported Prednisone 2.5 Mg Tab 2.5 Mg PO QAM 05/05/15 Reported Imitrex (Sumatriptan Succinate) 100 Mg Tab 100 Mg PO UD PRN 02/13/14 Reported Multivitamin (Multivitamins) Tab 1 Tab PO QAM 06/11/07 Reported Physical Exam Vital Signs (Last 8hrs): Last 8 Hrs Date Time Temp Pulse Resp B/P (MAP) Pulse Ox O2 Delivery O2 Flow Rate FiO2 10/11/17 12:52 Room Air 10/11/17 10:52 36.5 69 20 124/78 (93) 98 Room Air 10/11/17 07:16 36.7 60 20 119/81 (94) 98 Room Air General Appearance: Alert and Oriented x3. NAD. Head: Normocephalic Atraumatic. Eyes: PERRLA, EOMI, conjunctiva and sclera clear Neck: Supple. No carotid bruits noted. No JVD. No HJD. Respiratory: Breath sounds clear to auscultation bilaterally. No w/r/r. Cardiovascular: Reg rate and rhythm. /6 systolic murmur Abdomen: Normal bowel sounds, soft nontender. no abdominal bruits. Extremities: No edema, no clubbing or cyanosis. distal pulses 2/4 bilaterally. Neuro: No focal deficits. Psychiatric: Normal affect. Data Last Resulted 10/11/17 06:35 Red Blood Count 3.21, Mean Corpuscular Volume 85.7, Mean Corpuscular Hemoglobin 30.8, Mean Corpuscular Hemoglobin Concent 36.0, Mean Platelet Volume 9.7 Last Resulted 10/11/17 06:35 EKG performed 10/10/17 revealed AV sequential pacing and sensed rhythm, there was a pause that is to be solar sales representative and assessor of the patient's diagnostic check to promote AV conduction, including a ventricular paced QRS complex followed by T- wave and another P-wave that is felt to either be due to a premature atrial complex, it did not trigger a subsequent ventricular paced complex as it was within the post ventricular atrial refractory period (PVARP). Assessment & Plan Impression: Shortness of breath due to anemia Patient is not volume overloaded on physical exam Normal pacemaker function Discussion recommendations: The patient's Medtronic pacemaker was checked with the assistance of the [employer] solar sales representative and assessor that was fortunately already in-house for another case today. It is felt that the patient was in MVP mode which occasionally checks conduction. Since the patient has known high-grade AV block having presented with postoperative third-degree heart block, this accounts for the interval of bradycardia that was noted as the device was tracking to try to promote [place] conduction. The patient's device settings were changed to a DDD mode with basal rate of 60. Her AV delays or change from 180/150 to 200/170. At static PVARP was set. So in summary her pacemaker was functioning appropriately, without malfunction, however her settings were altered today to hopefully better suit her needs given her history of postoperative and now ongoing atrioventricular block.
--- NOTE | 2017-10-11 15:19 | Discharge Instructions ---
Discharge Instructions Date of Service Oct 11, 2017. Admission Reason for Admission: Acute Renal Failure, symptomatic anemia Discharge Discharge Diagnosis / Problem: Acute renal failure, symptomatic anemia, hemolytic anemia Discharge Goals Goal(s): Improve function, Improve disease control Activity Recommendations Activity Limitations: resume your previous activity . Instructions / Follow-Up Instructions / Follow-Up You were admitted for symptomatic anemia. You were given 2 units of packed red blood cells. Your hemoglobin improved from 7.6 to 9.9. Your pacemaker was interrogated due to bradycardia and it was found to be functioning normally. Settings were adjusted and optimized by cardiology. No medication changes were made during admission. Follow-ups: Please follow up with Heme/onc for Rituxan infusion tomorrow, SundayOctober 12 . Please follow up with Dr. Dee on October 22 at 10:45am. It was a pleasure taking care of you. You can reach the [facility] Hospitalist team at [facility] by calling [phone] if you have any questions or concerns. Take care of yourself. Sulma Meehan PA-C [facility] Hospitalist Current Hospital Diet Patient's current hospital diet: AHA Diet (Heart Healthy) Discharge Diet Recommended Diet: AHA Diet (Heart Healthy) Pending Studies Studies pending at discharge: no Medical Emergencies . Who to Call and When: Medical Emergencies: If at any time you feel your situation is an emergency, please call 911 immediately. . Non-Emergent Contact Non-Emergency issues call your: Primary Care Provider Call Non-Emergent contact if: temperature is above 101, you have any medication questions . Past History Medical & Surgical History: (1) Hyperkalemia (2) Hemolytic anemia (3) DESIREE (acute kidney injury) (4) Symptomatic anemia (5) Gastroparesis (6) History of membranous glomerulonephritis (7) Hypertension (8) History of DVT (deep vein thrombosis) (9) GERD (gastroesophageal reflux disease) (10) Migraine headache (11) Dyslipidemia (12) Autoimmune hemolytic anemia (13) Pancreatic cyst (14) Hypertensive heart disease (15) Macular degeneration (16) Ulcerative colitis (17) Neurofibromatosis (18) Cervicalgia (19) Aortic regurgitation (20) History of pericarditis (21) CKD (chronic kidney disease), stage III (22) History of herpes zoster (23) History of renal calculi (24) Acute renal failure (25) Pancytopenia (26) Status post -donor kidney transplantation (27) Status post living-donor kidney transplantation (28) Status post aortic valve replacement with bioprosthetic valve (29) History of renal transplant . "Provider Documentation" section prepared by Sulma Meehan. .
--- NOTE | 2017-10-11 15:29 | Discharge Summary ---
Discharge Summary Date of Service Oct 11, 2017. Discharge Summary Admission Date: Oct 09, 2017 at 17:38 Discharge Date: Oct 11, 2017 Discharge Disposition: Home Principal Diagnosis: Acute renal failure, symptomatic anemia, hemolytic anemia Secondary Diagnoses/Problems: (1) Hyperkalemia (2) Hemolytic anemia (3) DESIREE (acute kidney injury) (4) Symptomatic anemia (5) Gastroparesis (6) History of membranous glomerulonephritis (7) Hypertension (8) History of DVT (deep vein thrombosis) (9) GERD (gastroesophageal reflux disease) (10) Migraine headache (11) Dyslipidemia (12) Autoimmune hemolytic anemia (13) Pancreatic cyst (14) Hypertensive heart disease (15) Macular degeneration (16) Ulcerative colitis (17) Neurofibromatosis (18) Cervicalgia (19) Aortic regurgitation (20) History of pericarditis (21) CKD (chronic kidney disease), stage III (22) History of herpes zoster (23) History of renal calculi (24) Acute renal failure (25) Pancytopenia (26) Status post -donor kidney transplantation (27) Status post living-donor kidney transplantation (28) Status post aortic valve replacement with bioprosthetic valve (29) History of renal transplant Procedures: CT ABD: 1. No evidence of bowel obstruction. No evidence of free air 2. Fecal retention suggesting underlying constipation 3. Markedly atrophic mechoopda kidneys. Right lower quadrant renal transplant. 4. Normal appendix 5. Multiple pancreatic calcifications consistent with chronic pancreatitis. Persistent small cystic pancreatic lesions similar to the preceding study 6. Stable splenomegaly (15.8 cm) 7. Stable right lobe hepatic cyst Consultations: Heme/onc, cardiology, PT, OT Pending Studies/Follow-Up: N/A Medication Reconciliation Continued Medications: Ascorbic Acid (Ascorbic Acid) 500 Mg Tab 500 MG PO BID, TAB Aspirin (Aspirin Ec) 81 Mg Tab 81 MG PO QAM Azathioprine (Azathioprine) 50 Mg Tab 50 MG PO QAM Biotin (Biotin) 5,000 Mcg Sub 00602 MCG PO QAM Buspirone HCl (Buspirone HCl) 5 Mg Tab 5 MG PO BID Calcium Carbonate-Cholecalcife (Calcium 600+D 600-800 mg-Unit) 1 Tab Tab 1 TAB PO Q12 Cetirizine (Zyrtec) 10 Mg Tab 10 MG PO QAM Cimetidine (Tagamet) 400 Mg Tab 400 MG PO Q12 Cyclosporine Modified (For Shakir (Cyclosporine Modified) 50 Mg Cap 200 MG PO HS Cyclosporine Modified (For Shakir (Cyclosporine Modified) 50 Mg Cap 250 MG PO QAM Diclofenac Sodium (Topical) (Diclofenac Sodium) 1 % Gel 4 GM TOP TID PRN for Pain APPLY DIRECTED TO AFFECTED AREA(s) Diphenhydramine Hcl (Benadryl Allergy) 25 Mg Tab 25 MG PO UD PRN for Allergic Reaction Docusate Sodium (Colace) 100 Mg Cap 100 MG PO BID, CAP Fexofenadine Hcl (Earnestine) 180 Mg Tab 180 MG PO QPM Fluticasone Propionate (Nasal) (Flonase Allergy Relief) 50 Mcg/Act Spr 2 SPRAYS JOEL HS Folic Acid (Folic Acid) 1 Mg Tab 1 MG PO DAILY, TAB Glucosamine-Fish Oil-Epa-Dha (Glucosamine & Fish Oil) 1 Cap Cap 1 CAP PO Q12 Ketotifen Fumarate (Ophth) (Zaditor 0.025% Oph) 0.025 % Fredy 1 DROP OP UD Lisinopril (Lisinopril) 20 Mg Tab 20 MG PO HS Lorazepam (Lorazepam) 1 Mg Tab 1 MG PO TID PRN for Anxiety Lubiprostone (Amitiza) 24 Mcg Cap 24 MCG PO HS, CAP Magnesium Chloride (Slow-Mag Tab) 64 Mg Tabcr 64 MG PO BID, TAB Methocarbamol (Methocarbamol) 750 Mg Tab 750 MG PO Q6H Metoprolol Tartrate (Lopressor) 25 Mg Tab 0.5 TAB PO DAILY, TAB Mirtazapine (Mirtazapine) 45 Mg Tab 45 MG PO HS Multivitamin (Multivitamin) Tab 1 TAB PO QAM Ondansetron Hcl (Zofran) 4 Mg Tab 4 MG PO UD PRN for Nausea Oxcarbazepine (Trileptal) 600 Mg Tab 600 MG PO BID Oxycodone/Acetaminophen 7.5MG/325MG (Percocet 7.5MG/325MG) Tab 1 TAB PO Q6H PRN for Pain, TAB Pantoprazole (Pantoprazole Sodium) 40 Mg Tab 40 MG PO BID Polyethylene Glycol 3350 (Miralax) 1 Pow Pow 17 GM PO DAILY PRN for Constipation, GM Prednisone (Prednisone) 2.5 Mg Tab 2.5 MG PO QAM Pregabalin (Lyrica) 50 Mg Cap 75 MG PO QPM Pregabalin (Lyrica) 75 Mg Cap 50 MG PO QAM Rizatriptan Benzoate (Rizatriptan Benzoate) 10 Mg Tab 10 MG PO UD PRN for Headache Simvastatin (Simvastatin) 5 Mg Tab 5 MG PO QPM Sodium Chloride (Sodium Chloride) 1 Gm Tab 1 GM PO BID Sumatriptan Succinate (Imitrex) 100 Mg Tab 100 MG PO UD PRN for Headache Verapamil HCl (Verapamil HCl ER) 240 Mg Tabcr 240 MG PO Q12 Zolpidem Tartrate (Zolpidem Tartrate) 10 Mg Tab 10 MG PO HS PRN for Insomnia Admission Information HPI (per Admitting provider): This is a 46yo F with a PMH of autoimmune hemolytic anemia, HTN, chronic hyponatremia, history of AVR/aortic root repair replacement with bioprosthetic valve (in Jan 2017), complete heart block (s/p pacemaker placement), CKD III, CRI (s/p kidney transplantation in 1990 on immunosuppression therapy), history of cold agglutinin disease, past tobacco abuse, history of pulmonary nodules, chronic pain and ulcerative colitis per records who presents generalized weakness and dyspnea on exertion x [address] Clemons for hemolytic anemia and received 1st dose of Rituxan cycle 4 days ago. Has received Rituxan infusions in the past and states that she has required a blood transfusion following each one due to worsening anemia. States that baseline hemoglobin is around 12, but that it decreased to 9 in September. Reports that hemoglobin was 7.6 on Sunday. Since Rituxan therapy, patient has been generally weak, dyspneic on exertion and has had less energy. Denies any lightheadedness, visual changes, chest pain or shortness of breath at rest. States that her appetite has decreased and she feels bloated after fluid intake, so she has not been drinking as much water as usual. Has a history of DVT but is not on Coumadin due to hemolytic anemia. Denies any fever, chills, abdominal pain, nausea, vomiting, dysuria, hematuria, melena, hematochezia or LE swelling. Follows with Dr. David for nephrology and Dr. Rizo for cardiology. Physical Exam (per Admitting): General Appearance: WD/WN, no apparent distress Head: normocephalic, atraumatic Eyes: normal inspection, PERRL, sclerae normal ENT: normal ENT inspection, hearing grossly normal, pharynx normal Neck: supple, thyroid normal, trachea midline Respiratory/Chest: chest non-tender, lungs clear, normal breath sounds, no respiratory distress, no accessory muscle use Cardiovascular: regular rate, rhythm, normal peripheral pulses, + systolic murmur Abdomen/GI: non tender, soft, no organomegaly Extremities/Musculoskelatal: normal inspection, no calf tenderness, no pedal edema Neurologic/Psych: no motor/sensory deficits, alert, normal mood/affect, oriented x 3 Skin: normal color, warm/dry, + pallor Hospital Course This is a 46yo F with a PMH of autoimmune hemolytic anemia, HTN, chronic hyponatremia, history of AVR/aortic root repair replacement with bioprosthetic valve (in Jan 2017), complete heart block (s/p pacemaker placement), CRI (s/p kidney transplant in 1990 on immunosuppression therapy), history of cold agglutinin disease, past tobacco abuse, history of pulmonary nodules, chronic pain and ulcerative colitis per records who presents generalized weakness and dyspnea and was found to be anemic. 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 Blasts and schistocytes are not seen. 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 (Cold agglutinin titer positive on 10/04/17) -Pancytopenia most likely due to the splenomegaly (previous noted on August 2016 CT scan) -Okay for discharge, now that hgb is stable at 9.9 -Plan for 2nd cycle of Rituxan this week on Sunday as out-patient -Will monitor CBC and transfuse if indicated as out-patient Bradycardia -HR in low 50s on telemetry and EKG yesterday -Cardio consulted -[employer] pacemaker was checked with the assistance of the [employer] sales representative - Pacemaker was functioning appropriately, without malfunction - Settings were altered to hopefully better suit her needs given her history of postoperative and now ongoing AV block Complete heart block (s/p pacemaker placement) -Continue baby aspirin, statin, beta kristi DESIREE on CKD III -- resolving -Cr elevated to 1.7 initially (baseline ~1) -Cr improved to 1.4 after gentle fluids -Encouraged to increase PO intake at home -Resume lisinopril upon discharge Chronic hyponatremia -Sodium stable at 131 (upper end of baseline) -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 Discharge Instructions Discharge Instructions Date of Service Oct 11, 2017. Admission Reason for Admission: Acute Renal Failure, symptomatic anemia Discharge Discharge Diagnosis / Problem: Acute renal failure, symptomatic anemia, hemolytic anemia Discharge Goals Goal(s): Improve function, Improve disease control Activity Recommendations Activity Limitations: resume your previous activity . Instructions / Follow-Up Instructions / Follow-Up You were admitted for symptomatic anemia. You were given 2 units of packed red blood cells. Your hemoglobin improved from 7.6 to 9.9. Your pacemaker was interrogated due to bradycardia and it was found to be functioning normally. Settings were adjusted and optimized by cardiology. No medication changes were made during admission. Follow-ups: Please follow up with Heme/onc for Rituxan infusion tomorrow, SundayOctober 12 . Please follow up with Dr. Dee on October 22 at 10:45am. It was a pleasure taking care of you. You can reach the [facility] Hospitalist team at [facility] by calling [phone] if you have any questions or concerns. Take care of yourself. Sulma Meehan PA-C [facility] Hospitalist Current Hospital Diet Patient's current hospital diet: AHA Diet (Heart Healthy) Discharge Diet Recommended Diet: AHA Diet (Heart Healthy) Pending Studies Studies pending at discharge: no Medical Emergencies . Who to Call and When: Medical Emergencies: If at any time you feel your situation is an emergency, please call 911 immediately. . Non-Emergent Contact Non-Emergency issues call your: Primary Care Provider Call Non-Emergent contact if: temperature is above 101, you have any medication questions . Past History Medical & Surgical History: (1) Hyperkalemia (2) Hemolytic anemia (3) DESIREE (acute kidney injury) (4) Symptomatic anemia (5) Gastroparesis (6) History of membranous glomerulonephritis (7) Hypertension (8) History of DVT (deep vein thrombosis) (9) GERD (gastroesophageal reflux disease) (10) Migraine headache (11) Dyslipidemia (12) Autoimmune hemolytic anemia (13) Pancreatic cyst (14) Hypertensive heart disease (15) Macular degeneration (16) Ulcerative colitis (17) Neurofibromatosis (18) Cervicalgia (19) Aortic regurgitation (20) History of pericarditis (21) CKD (chronic kidney disease), stage III (22) History of herpes zoster (23) History of renal calculi (24) Acute renal failure (25) Pancytopenia (26) Status post -donor kidney transplantation (27) Status post living-donor kidney transplantation (28) Status post aortic valve replacement with bioprosthetic valve (29) History of renal transplant . "Provider Documentation" section prepared by Sulma Meehan. . Additional Copies To Chad Clemons M.D.
[2017-10-11 15:43] VITALS: BP 124/78; PULSE 69; TEMP 36.5; O2SAT 98
== END 2017-10-11 16:05 | disposition home or self-care (01) | DRG 809 ==
LOC: C.EDB 15:04 → C.2T 17:38 → ENRESERV 18:23
PROVIDERS: ADMIT Internal Medicine; ATTEND Internal Medicine
DX: D59.1 Other autoimmune hemolytic anemias (principal); D61.818 Other pancytopenia; N17.9 Acute kidney failure, unspecified; E87.1 Hypo-osmolality and hyponatremia; Z94.0 Kidney transplant status; K51.90 Ulcerative colitis, unspecified, without complications; E87.5 Hyperkalemia; R16.1 Splenomegaly, not elsewhere classified; R00.1 Bradycardia, unspecified; I12.9 Hypertensive chronic kidney disease with stage 1 through stage 4 chronic kidney disease, or unspecified chronic kidney disease; N18.3 Chronic kidney disease, stage 3 (moderate); G89.29 Other chronic pain; Z86.2 Personal history of diseases of the blood and blood-forming organs and certain disorders involving the immune mechanism; Z86.79 Personal history of other diseases of the circulatory system; Z95.2 Presence of prosthetic heart valve; Z95.0 Presence of cardiac pacemaker; Z86.718 Personal history of other venous thrombosis and embolism; Z87.891 Personal history of nicotine dependence; Z79.52 Long term (current) use of systemic steroids; Z79.82 Long term (current) use of aspirin; Z79.899 Other long term (current) drug therapy; Z88.3 Allergy status to other anti-infective agents; Z88.5 Allergy status to narcotic agent; Z88.8 Allergy status to other drugs, medicaments and biological substances

== ENCOUNTER → 2017-10-15 | Day surgery (SDC) | payer OTHER ==
[~2017-10-15] VITALS: Ht 157.5 cm; Wt 61.4 kg
[~2017-10-15] MED LIST changes: +AMT24 PO; +ASCO500T16 PO; +ASPI81TA28 PO; -ATV/1 PO; +ATV1 PO; -AZAT50TA17 PO; +AZAT50TA22 PO; +BSP/5 PO; -BUSP5TAB59 PO; +CALC-459 PO; +CIME-56 PO; +CYCL1CAP22 PO; +DICL1GEL34 TOP; +DIPH1TAB87 PO; +DOCU-94 PO; +FEXO1TAB46 PO; +FLUT0.15 NAE; +FLV1 PO; -GLCS500 PO; +GLUCCAP3 PO; +KETO0.0216 OP; +LIDOCAINE HCL 2% 2 ML VIAL (20MG/ML) ONE; -LISI-725 PO; +LISI-726 PO; +LPR25 PO; +LYR/50 PO; -MELA5CAP PO; -METH-307 PO; -MIRT30TA3 PO; +MIRT45TA3 PO; -OMEG5CAP PO; +OXCA600T2 PO; -OXY/15 PO; +OXYC7.5T65 PO; -PANT40TA PO; +PANT40TA2 PO; +POLY335019 PO; +PREG75CA PO; +PROPOFOL IV EMULSION 10 MG/ML 20 ML VIAL ONE; +RBX750 PO; -RIZA10TA18 PO; +RIZA10TA21 PO; -SDMC1 PO; -SIMV5TAB2 PO; +SLWMEC PO; +SODI1TAB PO; +SODIUM CHLORIDE 0.9% 500ML 500 ML IV ONE; -VERA240T20 PO; +VRPSR240 PO; +ZCR5 PO; -ZOLP10TA PO; +ZOLP10TA6 PO; -[UNRECOGNIZED DRUG - CODE] PO
[2017-10-15 10:05] VITALS: Ht 157.5 cm; Wt 61.4 kg
--- NOTE | 2017-10-15 10:26 | Endo History and Physical ---
History & Physical Date of Service: Oct 15, 2017. Chief Complaint: Referring Physician: History of Present Illness 47 yo presenting for follow up of possible Chronic Ulcerative colitis- asymptomatic but on Imuran and Prednisone Past Medical History Neurological Disorder, Gastrointestinal Disorder, Anxiety, Reflux, High Cholesterol, Hypertension, Thrombophlebitis, Chronic Steroid Use, Kidney Disease , Depression Past Surgical History Hx Cardiac Surgery: Yes (AVR, aortic root replacement) Hx Internal Defibrillator: No Hx Pacemaker: No Hx Abdominal Surgery: No Hx Post-Op Nausea and Vomiting: Yes Hx Cancer Surgery: No Hx Thoracic Surgery: No Hx Orthopedic: No Hx Urinary Tract Surgery: Yes (renal transplant x2, ureteral stent, lithotripsy ) Social History Smoking Status: Former Smoker Hx Substance Use: Yes Hx Alcohol Use: No Allergies Coded Allergies: Morphine (Verified Allergy, Intermediate, HIVES, HAS HAD CODEINE W/O PROBLEM, 10/15/17) HIVES, HAS HAD CODEINE W/O PROBLEM HAS ALSO TOLERATED TRAMADOL Hydralazine (Verified Allergy, Unknown, HIVES, 10/15/17) Oxycodone (Unverified Adverse Reaction, Severe, BLOAT, UNABLE TO EAT, CONSTIPATION, 10/15/17) THIS IS OXYCONTIN ISSUE...She is taking and able to take IR products Valacyclovir (Unverified Adverse Reaction, Intermediate, NAUSEA, VOMITING , DEHYDRATION, 10/15/17) Nitrates, Organic (Verified Adverse Reaction, Unknown, migraines, 10/15/17) Current Medications Reported Home Medications Medications Dose Route/Sig Max Daily Dose Days Date Category Dose Instructions Lopressor (Metoprolol Tartrate) 25 Mg Tab 0.5 Tab PO DAILY 10/09/17 Reported Glucosamine & Fish Oil (Glucosamine-Fish Oil-Epa-Dha) 1 Cap Cap 1 Cap PO Q12 10/09/17 Reported Slow-Mag Tab (Magnesium Chloride) 64 Mg Tabcr 64 Mg PO BID 10/09/17 Reported Rizatriptan Benzoate 10 Mg Tab 10 Mg PO UD PRN 10/09/17 Reported Lisinopril 20 Mg Tab 20 Mg PO HS 10/09/17 Reported Simvastatin 5 Mg Tab 5 Mg PO QPM 10/09/17 Reported Azathioprine 50 Mg Tab 50 Mg PO QAM 10/09/17 Reported Pantoprazole Sodium (Pantoprazole) 40 Mg Tab 40 Mg PO BID 10/09/17 Reported Verapamil HCl ER (Verapamil HCl) 240 Mg Tabcr 240 Mg PO Q12 10/09/17 Reported Mirtazapine 45 Mg Tab 45 Mg PO HS 10/09/17 Reported Buspirone HCl 5 Mg Tab 5 Mg PO BID 10/09/17 Reported Lorazepam 1 Mg Tab 1 Mg PO TID PRN 10/09/17 Reported Sodium Chloride 1 Gm Tab 1 Gm PO BID 10/09/17 Reported Lyrica (Pregabalin) 75 Mg Cap 50 Mg PO QAM 10/09/17 Reported Zolpidem Tartrate 10 Mg Tab 10 Mg PO HS PRN 10/09/17 Reported Percocet 7.5MG/325MG (Oxycodone/Acetaminophen) Tab 1 Tab PO Q6H PRN 10/09/17 Reported Cyclosporine Modified (Cyclosporine Modified (For Shakir) 50 Mg Cap 250 Mg PO QAM 10/09/17 Reported Methocarbamol 750 Mg Tab 750 Mg PO Q6H 10/09/17 Reported Cyclosporine Modified (Cyclosporine Modified (For Shakir) 50 Mg Cap 200 Mg PO HS 10/09/17 Reported Zaditor 0.025% Oph (Ketotifen Fumarate (Ophth)) 0.025 % Fredy 1 Drop OP UD 03/28/17 Reported Lyrica (Pregabalin) 50 Mg Cap 75 Mg PO QPM 03/28/17 Reported Calcium 600+D 600-800 mg-Unit (Calcium Carbonate-Cholecalcife) 1 Tab Tab 1 Tab PO Q12 03/28/17 Reported Earnestine (Fexofenadine Hcl) 180 Mg Tab 180 Mg PO QPM 03/28/17 Reported Aspirin Ec (Aspirin) 81 Mg Tab 81 Mg PO QAM 03/28/17 Reported Miralax (Polyethylene Glycol 3350) 1 Pow Pow 17 Gm PO DAILY PRN 02/15/17 Reported Amitiza (Lubiprostone) 24 Mcg Cap 24 Mcg PO HS 10/20/16 Reported Benadryl Allergy (Diphenhydramine Hcl) 25 Mg Tab 25 Mg PO UD PRN 10/20/16 Reported Folic Acid 1 Mg Tab 1 Mg PO DAILY 10/20/16 Reported Diclofenac Sodium (Diclofenac Sodium (Topical)) 1 % Gel 4 Gm TOP TID PRN 09/06/16 Reported APPLY DIRECTED TO AFFECTED AREA(s) Trileptal (Oxcarbazepine) 600 Mg Tab 600 Mg PO BID 09/06/16 Reported Tagamet (Cimetidine) 400 Mg Tab 400 Mg PO Q12 09/06/16 Reported Flonase Allergy Relief (Fluticasone Propionate (Nasal)) 50 Mcg/Act Spr 2 Sprays JOEL HS 09/06/16 Reported Colace (Docusate Sodium) 100 Mg Cap 100 Mg PO BID 09/06/16 Reported Ascorbic Acid 500 Mg Tab 500 Mg PO BID 09/06/16 Reported Zyrtec (Cetirizine HCl) 10 Mg Tab 10 Mg PO QAM 02/10/16 Reported Biotin 5,000 Mcg Sub 10,000 Mcg PO QAM 02/10/16 Reported Zofran (Ondansetron HCl) 4 Mg Tab 4 Mg PO UD PRN 05/05/15 Reported Prednisone 2.5 Mg Tab 2.5 Mg PO QAM 05/05/15 Reported Imitrex (Sumatriptan Succinate) 100 Mg Tab 100 Mg PO UD PRN 02/13/14 Reported Multivitamin (Multivitamins) Tab 1 Tab PO QAM 06/11/07 Reported Vital Signs Weight (Kilograms): 61.4 Height (Feet): 5 Height (Inches): 2 Physical Exam General Appearance: WD/WN, no apparent distress Respiratory/Chest: Respiratory effort: no dyspnea Auscultation: breath sounds normal, CTA except as noted, no wheezing Cardiovascular: Apical Impulse: not displaced Heart Auscultation: RRR, normal S1 Abdomen: Bowel Sounds: normal Inspection & Palpation: soft, non-distended Assessment and Plan 47 yo presenting for follow up colonoscopy for possible ulcerative colitis
--- NOTE | 2017-10-15 11:27 | GI REPORT ---
Patient Name: Radha Burgos Procedure Date: 10/15/2017 10:08 AM Date of : 1970 Admit Type: Outpatient Age: 47 Gender: Female Attending MD: Jese Cook MD Procedure: Colonoscopy Providers: Jese Cook MD Referring MD: Nhan Ariza Roshan Mainali Indications: Exclusion of ulcerative colitis Medicines: Monitored Anesthesia Care Complications: No immediate complications. Estimated blood loss: Minimal. Estimated Blood Loss: Estimated blood loss: none. Procedure: Pre-Anesthesia Assessment: - Pre-Anesthesia Assessment: - Prior to the procedure, a History and Physical was performed, and patient medications, allergies and sensitivities were reviewed. The patient's tolerance of previous anesthesia was reviewed. Please see Fanergies for complete details. - The risks and benefits of the procedure and the sedation options and risks were discussed with the patient. All questions were answered and informed consent was obtained. - Patient identification and proposed procedure were verified prior to the procedure by the physician and the nurse. The procedure was verified in the pre-procedure area in the procedure room. After obtaining informed consent, the endoscope was passed carefully and meticuously under direct vision and only advanced when the lumen was clearly identified, C02 insuflation was utilized throughout the entirity of the procedure. Throughout the procedure, the patient's blood pressure, pulse, and oxygen saturations were monitored continuously. After I obtained informed consent, the scope was passed under direct vision. Throughout the procedure, the patient's blood pressure, pulse, and oxygen saturations were monitored continuously. The scope was introduced through the anus with the intention of advancing to the cecum. The scope was advanced to the transverse colon before the procedure was aborted. Medications were given. The colonoscopy was performed without difficulty. The patient tolerated the procedure well. The quality of the bowel preparation was unsatisfactory. Findings: Copious quantities of stool was found in the entire colon, precluding visualization. Lavage of the area was performed using copious amounts of sterile water, resulting in incomplete clearance with continued poor visualization. The colon lumen that was visualized appeared normal, without evidence of colitis including the rectum and sigmoid colon. Biopsies were taken with a cold forceps for histology of the visualized colon. Impression: - Preparation of the colon was unsatisfactory. - Stool in the entire examined colon. Recommendation: - Written discharge instructions were provided to the patient. - Discharge patient to home (with escort). - Await pathology results. - Follow up with Kajal Olivarez as scheduled. Discuss merits of repeating procedure if necessary, then two day prep. - Bowel regimen. Jese Cook MD 10/15/2017 11:27:24 AM This report has been signed electronically. Note Initiated On: 10/15/2017 10:08 AM Number of Addenda: 0 I attest to the content of the Intraoperative Record and orders documented therein, exceptions below {[id number]}
--- NOTE | 2017-10-15 11:30 | Discharge Instructions ---
Endoscopy Patient Instructions Date / Procedure(s) Performed Oct 15, 2017. Colonoscopy Allergy Information Coded Allergies: Morphine (Verified Allergy, Intermediate, HIVES, HAS HAD CODEINE W/O PROBLEM, 10/15/17) HIVES, HAS HAD CODEINE W/O PROBLEM HAS ALSO TOLERATED TRAMADOL Hydralazine (Verified Allergy, Unknown, HIVES, 10/15/17) Oxycodone (Unverified Adverse Reaction, Severe, BLOAT, UNABLE TO EAT, CONSTIPATION, 10/15/17) THIS IS OXYCONTIN ISSUE...She is taking and able to take IR products Valacyclovir (Unverified Adverse Reaction, Intermediate, NAUSEA, VOMITING , DEHYDRATION, 10/15/17) Nitrates, Organic (Verified Adverse Reaction, Unknown, migraines, 10/15/17) Discharge Date / Findings Oct 15, 2017. Findings: Copious quantities of stool was found in the entire colon, precluding visualization. Lavage of the area was performed using copious amounts of sterile water, resulting in incomplete clearance with continued poor visualization. The colon lumen that was visualized appeared normal, without evidence of colitis including the rectum and sigmoid colon. Biopsies were taken with a cold forceps for histology of the visualized colon. Impression: - Preparation of the colon was unsatisfactory. - Stool in the entire examined colon. Recommendation: - Written discharge instructions were provided to the patient. - Discharge patient to home (with escort). - Await pathology results. - Follow up with Kajal Olivarez as scheduled. Discuss merits of repeating procedure if necessary, then two day prep. - Bowel regimen. Medication Instructions Stopped Medication(s): aspirin last 10/15 0730 Provider Instructions Activity Restrictions - No exercising or heavy lifting for 24 hours. - Do not drink alcohol the day of the procedure. - Do not drive a car or operate machinery until the day after the procedure. - Do not make any important decisions or sign important papers in 24 hours after the procedure. Following Day: - Return to full activity which may include returning to work/school. Diet Start your diet with liquids and light foods (jello, soup, juice, toast). Then eat your usual diet if not nauseated. Treatment For Common After Affects For mild abdominal pain, bloating, or excessive gas: - Rest - Eat lightly - Lie on right side Follow-Up Information Follow-up with Dr. Ravi as scheduled Anesthesia Information What You Should Know You have had a procedure that required some medicine to reduce anxiety and discomfort. This treatment is called moderate sedation. After receiving the treatment, you may be sleepy, but you will be able to breathe on your own. The effects of the treatment may last for several hours. Follow these instructions along with Activity/Diet recommendations noted above: * Do NOT do anything where dizziness or clumsiness would be dangerous. * Rest quietly at home today, then you can be up and about tomorrow. * Have a responsible person stay with you the rest of today. * You may have had an I.V. today. If so, you may take the dressing off later today. Recommendations Call your doctor if: * Trouble breathing * Continuous vomiting for more than 24 hours * Temperature above 101 degrees * Severe abdominal pain or bloating * Pain not relieved by pain medicine ordered * There is increased drainage or redness from any incision * A large amount of rectal bleeding greater than 2-3 tablespoons. (If you had a polyp/s removed or have hemorrhoids, a small amount of blood - from the rectum is to be expected.) * You have any unanswered questions or concerns. IN THE EVENT OF A SERIOUS EMERGENCY, GO TO THE NEAREST EMERGENCY ROOM Your discharge instructions were prepared by provider Jese Cook. Patient Instructions Signature Page Radha Burgos Patient (or Guardian) Signature/Date: I have read and understand the instructions given to me by my caregivers. Caregiver/RN/Doctor Signature/Date: The above-named patient and/or guardian has received patient instructions on this date. + Original Patient Signature Page (only) stays with chart. Please make copy for patient.
--- NOTE | 2017-10-15 11:47 | Anesthesiology Progress Note ---
Anesthesia Post Op Note Date & Time Oct 15, 2017 at 11:47 Vital Signs Pain Intensity: 0 Vital Signs Past 12 Hours Date Time Temp Pulse Resp B/P (MAP) Pulse Ox O2 Delivery O2 Flow Rate FiO2 10/15/17 11:43 60 18 123/80 (94) 96 Room Air 10/15/17 11:28 36.4 60 18 110/70 (83) 96 Room Air 10/15/17 10:51 36.8 63 18 132/81 (98) 96 Room Air Notes Mental Status: alert / awake / arousable, participated in evaluation Pt Amnestic to Procedure: Yes Nausea / Vomiting: adequately controlled Pain: adequately controlled Airway Patency, RR, SpO2: stable & adequate BP & HR: stable & adequate Hydration State: stable & adequate Anesthetic Complications: no major complications apparent
[2017-10-15 11:58] VITALS: BP 129/81; PULSE 61; O2SAT 99
== END | disposition home or self-care (01) ==
LOC: C.GI 09:36
PROVIDERS: ATTEND Internal Medicine
DX: K51.90 Ulcerative colitis, unspecified, without complications (principal); N18.3 Chronic kidney disease, stage 3 (moderate); I10 Essential (primary) hypertension; Z94.0 Kidney transplant status; Z88.5 Allergy status to narcotic agent

== ENCOUNTER 2018-03-13 12:26 | Inpatient (IN) ==
[2018-03-13] MEDS ORDERED: SODIUM CHLORIDE 0.9% 500 ML IV SCH (13:30)
[2018-03-13 13:56] LABS: Appearance Urine Clear (Clear); Bacteria Urine Automated 4+ (Negative); Bilirubin Urine Negative (Negative); Color Urine Dark Yellow; Epithelial Cell Urine Auto 0-5 /lpf (0-5); Glucose Urine UA Negative (Negative); Ketones Urine Negative (Negative); Leukocyte Esterase Urine 2+ (Negative); Nitrite Urine Positive (Negative); Protein Urine Negative (Negative); Specific Gravity Urine 1.019 (1.000-1.030); Urobilinogen Urine Negative (Negative); WBC Urine Automated >30 /hpf (0-5)
[2018-03-13 14:16] LABS: Basophils # (auto) 0.05 K/uL (0-0.2); Basophils % (auto) 0.7 %; Eosinophils # (auto) 0.12 K/uL (0-0.5); Eosinophils % (auto) 1.7 %; Hematocrit (blood only) 33.2 % (37-47); Hemoglobin 11.9 g/dL (12.0-16.0); Immature Granulocytes # (auto) 0.02 K/uL (0.00-0.02); Immature Granulocytes % (auto) 0.3 %; Lymphocytes # (auto) 1.63 K/uL (1.2-3.4); Lymphocytes % (auto) 22.5 %; Mean Corpuscular Hgb Conc 35.8 g/dL (32-36); Mean Corpuscular Volume 84.9 fL (80-100); Mean Platelet Volume 8.5 fL (7.4-10.4); Monocytes # (auto) 0.67 K/uL (0.11-0.59); Monocytes % (auto) 9.3 %; Neutrophils # (auto) 4.74 K/uL (1.4-6.5); Neutrophils % (auto) 65.5 %; Platelet Count 256 K/uL (130-400); RDW Coefficient of Variation 13.1 % (11.5-14.5); RDW Standard Deviation 40.6 fL (36.4-46.3); Red Blood Count 3.91 M/uL (4.2-5.4); White Blood Count 7.23 K/uL (4.8-10.8)
[2018-03-13 14:23] LABS: BUN Creatinine Ratio 18.4 (10-20); Calcium 8.5 mg/dl (8.5-10.1); Creatinine Clr Calc Pharmacy 68.4 ml/min; Est GFR (African American) 90.1; Est GFR (Non-African American) 77.7; Potassium 4.4 mmol/L (3.5-5.1)
[2018-03-13] MEDS ORDERED: ERTAPENEM SODIUM 1,000 MG in SYRINGE 0 ML IV STA (14:23)
[2018-03-13] MEDS ORDERED: ERTAPENEM SODIUM 1,000 MG in SODIUM CHLORIDE 0.9% 50 ML IV ONE (14:45)
--- NOTE | 2018-03-13 14:47 | Emergency Department Note ---
Entered by Perla Whyte acting as a scribe for Torrey Dobbs DO History of Present Illness General Chief complaint: Urinary Symptoms Stated complaint: UTI, SENT BY DR RAVI Time Seen by Provider: 03/13/18 12:41 Source: patient History of Present Illness Onset (ago): month(s) (3.5) Location: abdomen (suprapubic) Radiation: abdomen Pain Consistency: + constant Maximum Pain Intensity: 5 Relieved By: + none Associated symptoms: + other (The patient complains of dysuria and intermittent chills. ) The patient is a 47 year old female who presents to the Emergency Room with complaints of constant suprapubic abdominal pain for the last 3.5 months. She states that she was sent her by her PCP, Dr. Ravi, for IV antibiotics for a recurrent UTI. She notes that the cultures show signs of ESBL. The patient complains of dysuria and intermittent chills. She notes a history of a heart valve transplant in 2017. The patient reports a history of a kidney transplant, noting that there is pain over the transplant graft. She notes that nothing provides relief. Home Medications Home Medications Medication Instructions Recorded Confirmed Type Multivitamin 1 tab PO QAM #0 06/11/07 History SUMATRIPTAN SUCCINATE (IMITREX) 100 mg PO UD PRN #0 02/13/14 History ONDANSETRON HCL (ZOFRAN) 4 mg PO UD PRN #0 05/05/15 History Prednisone 2.5 mg PO QAM #0 05/05/15 History Biotin 10,000 mcg PO QAM #0 02/10/16 History Cetirizine (Zyrtec) 10 mg PO QAM #0 02/10/16 History ASCORBIC ACID 500 mg PO BID #0 tab 09/06/16 History CIMETIDINE (TAGAMET) 400 mg PO Q12 #0 09/06/16 History DOCUSATE SODIUM (COLACE) 100 mg PO BID #0 cap 09/06/16 History Diclofenac Sodium (Topical) 4 g TOPICAL TID PRN #0 09/06/16 History (Diclofenac Sodium) Fluticasone Propionate (Nasal) 2 spry JOEL HS #0 09/06/16 History (Flonase Allergy Relief) Oxcarbazepine (Trileptal) 600 mg PO BID #0 06/28/17 History DIPHENHYDRAMINE HCL (BENADRYL 25 mg PO UD PRN #0 10/20/16 History ALLERGY) Folic Acid 1 mg PO DAILY #0 tab 10/20/16 History LUBIPROSTONE (AMITIZA) 24 mcg PO HS #0 cap 10/20/16 History POLYETHYLENE GLYCOL 3350 (MIRALAX) 17 g PO DAILY PRN #0 g 02/15/17 History ASPIRIN (ASPIRIN EC) 81 mg PO QAM #0 03/28/17 History Calcium Carbonate-Cholecalcife 1 tab PO Q12 #0 03/28/17 History (Calcium 600+D 600-800 mg-Unit) FEXOFENADINE HCL (PROMISE) 180 mg PO QPM #0 03/28/17 History KETOTIFEN FUMARATE (OPHTH) 1 drp OPHTHALMIC (EYE) UD #0 03/28/17 History (ZADITOR 0.025% OPH) PREGABALIN (LYRICA) 75 mg PO QPM #0 03/28/17 History Azathioprine 50 mg PO QAM #0 10/09/17 History Buspirone HCl 5 mg PO BID #0 10/09/17 History CYCLOSPORINE MODIFIED (FOR ANA LUISA 200 mg PO HS #0 10/09/17 History (CYCLOSPORINE MODIFIED) CYCLOSPORINE MODIFIED (FOR ANA LUISA 250 mg PO QAM #0 10/09/17 History (CYCLOSPORINE MODIFIED) GLUCOSAMINE-FISH OIL-EPA-DHA 1 cap PO Q12 #0 10/09/17 History (GLUCOSAMINE & FISH OIL) Lisinopril 20 mg PO HS #0 10/09/17 History Lorazepam 1 mg PO TID PRN #0 10/09/17 History MAGNESIUM CHLORIDE (SLOW-MAG TAB) 64 mg PO BID #0 tab 10/09/17 History METOPROLOL TARTRATE (LOPRESSOR) 0.5 tab PO DAILY #0 tab 10/09/17 History MIRTAZAPINE 45 mg PO HS #0 10/09/17 History Methocarbamol 750 mg PO Q6H #0 10/09/17 History OXYCODONE/ACETAMINOPHEN 1 tab PO Q6H PRN #0 tab 10/09/17 History 7.5MG/325MG (PERCOCET 7.5MG/325MG) PREGABALIN (LYRICA) 50 mg PO QAM #0 10/09/17 History Pantoprazole (Pantoprazole Sodium) 40 mg PO BID #0 10/09/17 History Rizatriptan Benzoate 10 mg PO UD PRN #0 10/09/17 History SODIUM CHLORIDE 1 g PO BID #0 10/09/17 History Simvastatin 5 mg PO QPM #0 10/09/17 History Verapamil HCl (Verapamil HCl ER) 240 mg PO Q12 #0 10/09/17 History ZOLPIDEM TARTRATE 10 mg PO HS PRN #0 10/09/17 History Allergies Allergy/AdvReac Type Severity Reaction Status Date / Time morphine Allergy Intermediate HIVES, HAS Verified 10/15/17 10:05 HAD CODEINE W/O PROBLEM hydralazine Allergy Unknown HIVES Verified 10/15/17 10:05 oxycodone AdvReac Severe BLOAT, Unverified 10/15/17 10:05 UNABLE TO EAT, CONSTIPATION valacyclovir AdvReac Intermediate NAUSEA, Unverified 10/15/17 10:05 VOMITING, DEHYDRATION Nitrate Analogues AdvReac Unknown migraines Verified 10/15/17 10:05 Past Med/Surg History Medical History Anemia (Chronic) Gastroparesis (Chronic) 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" Hypertension (Chronic) History of DVT (deep vein thrombosis) (Chronic) GERD (gastroesophageal reflux disease) (Chronic) Migraine headache (Chronic) Dyslipidemia (Chronic) Autoimmune hemolytic anemia (Chronic) Pancreatic cyst (Chronic) Hypertensive heart disease (Chronic) Macular degeneration (Chronic) Ulcerative colitis (Chronic) Neurofibromatosis (Chronic) Cervicalgia (Chronic) Aortic regurgitation (Chronic) "s/p bioprosthetic AVR" History of pericarditis (Chronic) CKD (chronic kidney disease), stage III (Chronic) History of herpes zoster (Chronic) History of renal calculi (Chronic) Renal transplant recipient (Chronic) Surgical History Status post -donor kidney transplantation (Chronic) Status post living-donor kidney transplantation (Chronic) Status post aortic valve replacement with bioprosthetic valve (Chronic) Social History Feels Safe at Home: Yes Smoking Status: Former smoker Review of Systems See HPI for pertinent positives & negatives. and A total of 10 systems reviewed and were otherwise negative Physical Exam Vital Signs Vital Signs - 24 hr 03/13/18 12:28 03/13/18 14:05 Temperature 36.7 C Temperature Source Oral Sepsis Recent Fever Within 48 Hours No Sepsis Action Taken by Nursing No Action Required Pulse Rate 67 Pulse Rate [Apical] 77 Respiratory Rate 20 20 Respiratory Effort / Characteristics Non-Labored Respiratory Depth Normal Respiratory Pattern Regular Blood Pressure 151/100 H Blood Pressure [Right Arm] 164/94 H Blood Pressure Mean 117 Blood Pressure Mean [Right Arm] 117 Pulse Oximetry 97 99 Oxygen Delivery Method Room Air CONSTITUTIONAL/VITAL SIGNS: Reviewed / noted above. GENERAL: Non-toxic in appearance. INTEGUMENTARY: Warm, dry, and [place]. HEAD: Normocephalic. EYES: without scleral icterus or trauma. ENT/OROPHARYNX: clear and moist. LYMPHADENOPATHY/NECK: Is supple without lymphadenopathy or meningismus. RESPIRATORY: Lungs clear and equal. CARDIOVASCULAR: Regular rate and rhythm. GI/ABDOMEN: Soft and nontender. No organomegaly or pulsatile mass. No rebound or guarding. Normal bowel sounds. EXTREMITIES: Warm and well perfused. BACK: No CVA tenderness. NEUROLOGICAL: Intact without focal deficits. PSYCHIATRIC: normal affect. MUSCULOSKELETAL: Normally developed with good muscle tone. Course 1241: The patient was evaluated in room B10 and a physical examination was performed by Dr. Boy Young, a resident. 1305: Past medical records reviewed. The patient was evaluated in room B10, and a complete history and physical examination were performed. 1423: I reevaluated the patient. 1437: I spoke with a [facility] hospitalist about the patient's case. They will evaluate her further. Consultations Consultation #1: [facility] They will evaluate her further. Time: 14:37 Administered Medications Discontinued Medications Sodium Chloride (Nss) 500 mls @ 999 mls/hr IV .Q31M LA Stop: 03/13/18 14:00 Last Infusion: 03/13/18 14:33 Dose: 0 mls/hr Admin: 03/13/18 13:55 Dose: 999 mls/hr Medical Decision Making Differential Diagnosis Differential includes acute coronary syndrome, myocardial infarction, CVA, TIA , anemia, infection, pneumonia, UTI, pyelonephritis, poor nutrition, dehydration , electrolyte disturbance,hypoglycemia. Medical Records Attestation: I reviewed the patient's medical records. Home Medications Current Medication List: was personally reviewed by me Laboratory Data Attestation: I reviewed the patient's lab results. Result diagrams: 03/13/18 13:54 03/13/18 13:54 Lab Results 03/13/18 03/13/18 03/13/18 Range/Units 13:54 13:54 Unknown WBC 7.23 (4.8-10.8) K/uL RBC 3.91 L (4.2-5.4) M/uL Hgb 11.9 L (12.0-16.0) g/dL Hct 33.2 L (37-47) % MCV 84.9 (80-100) fL MCH 30.4 (25-34) pg MCHC 35.8 (32-36) g/dL RDW Std Deviation 40.6 (36.4-46.3) fL RDW Coeff of Delia 13.1 (11.5-14.5) % Plt Count 256 (130-400) K/uL MPV 8.5 (7.4-10.4) fL Immature Gran % (Auto) 0.3 % Neut % (Auto) 65.5 % Lymph % (Auto) 22.5 % Dunn % (Auto) 9.3 % Eos % (Auto) 1.7 % Baso % (Auto) 0.7 % Immature Gran # (Auto) 0.02 (0.00-0.02) K/uL Neut # (Auto) 4.74 (1.4-6.5) K/uL Lymph # (Auto) 1.63 (1.2-3.4) K/uL Dunn # (Auto) 0.67 H (0.11-0.59) K/uL Eos # (Auto) 0.12 (0-0.5) K/uL Baso # (Auto) 0.05 (0-0.2) K/uL Sodium 124 L (136-145) mmol/L Potassium 4.4 (3.5-5.1) mmol/L Chloride 92 L (98-107) mmol/L Carbon Dioxide 24 (21-32) mmol/L Anion Gap 8.0 (3-11) BUN 16 (7-18) mg/dl Creatinine 0.89 (0.6-1.2) mg/dl Est Cr Clr Drug Dosing 68.4 ml/min Est GFR ( Amer) 90.1 Est GFR (Non-Af Amer) 77.7 BUN/Creatinine Ratio 18.4 (10-20) Glucose 98 (70-99) mg/dl Calcium 8.5 (8.5-10.1) mg/dl Urine Color Dark Yellow Urine Appearance Clear (Clear) Urine pH 6.0 (4.5-7.5) Ur Specific [place] 1.019 (1.000-1.030) Urine Protein Negative (Negative) Urine Glucose (UA) Negative (Negative) Urine Ketones Negative (Negative) Urine Blood Negative (Negative) Urine Nitrite Positive H (Negative) Urine Bilirubin Negative (Negative) Urine Urobilinogen Negative (Negative) Ur Leukocyte Esterase 2+ H (Negative) Urine WBC (Auto) >30 H (0-5) /hpf Urine RBC (Auto) 0-4 (0-4) /hpf U Hyaline Cast (Auto) 1-5 (0-5) /lpf U Epithel Cells (Auto) 0-5 (0-5) /lpf Urine Bacteria (Auto) 4+ H (Negative) Blood Pressure Blood Pressure Findings: Elevated blood pressure Blood Pressure Disposition: further management by hospitalist MDM Narrative This is a 47-year-old female who presents to the ED with a chief complaint of urinary symptoms and a ESBL culture. The patient was treated with Cipro for 7 days after she began having urinary symptoms on March 03. She had a repeat culture done on the as her symptoms persisted despite the Cipro. The culture came back today and revealed ESBL E. coli. The patient was told to come to the emergency department for IV antibiotics. Her physical exam is unremarkable. CBC and complete metabolic panel were unremarkable. Sodium is 124. Urine does suggest infection. The patient was treated with some IV fluids as well as 1 g IV ertapenem. She will be seen by the hospitalist service for further inpatient evaluation and care. Impression & Plan UTI (urinary tract infection), ESBL (extended spectrum beta-lactamase) producing bacteria infection Discharge Plan Visit Data Chief Complaint: Urinary Symptoms Stated Complaint: UTI, SENT BY DR RAVI ED Provider: Torrey Dobbs Discharge Problem: UTI (urinary tract infection), ESBL (extended spectrum beta-lactamase) producing bacteria infection Patient Disposition: Being Evaluated by Hospitalist Forms Stand Alone Forms: [facility] Prescriptions Prescriptions: No Action Multivitamin tablet 1 tab PO QAM Qty: 0 RF: 0 SUMATRIPTAN SUCCINATE (IMITREX) 100 MG tablet 100 mg PO UD PRN (Reason: Headache) Qty: 0 RF: 0 Prednisone 2.5 MG tablet 2.5 mg PO QAM Qty: 0 RF: 0 ONDANSETRON HCL (ZOFRAN) 4 MG tablet 4 mg PO UD PRN (Reason: Nausea) Qty: 0 RF: 0 Biotin 5,000 MCG SUB 10,000 mcg PO QAM Qty: 0 RF: 0 Cetirizine (Zyrtec) 10 MG tablet 10 mg PO QAM Qty: 0 RF: 0 ASCORBIC ACID 500 MG tablet 500 mg PO BID Qty: 0 RF: 0 CIMETIDINE (TAGAMET) 400 MG tablet 400 mg PO Q12 Qty: 0 RF: 0 DOCUSATE SODIUM (COLACE) 100 MG capsule 100 mg PO BID Qty: 0 RF: 0 Diclofenac Sodium (Topical) (Diclofenac Sodium) 1 % gel 4 g Topical TID PRN (Reason: Pain) Qty: 0 RF: 0 Fluticasone Propionate (Nasal) (Flonase Allergy Relief) 50 MCG/ACT SPR 2 spry JOEL HS Qty: 0 RF: 0 Oxcarbazepine (Trileptal) 600 MG tablet 600 mg PO BID Qty: 0 RF: 0 DIPHENHYDRAMINE HCL (BENADRYL ALLERGY) 25 MG tablet 25 mg PO UD PRN (Reason: Allergic Reaction) Qty: 0 RF: 0 Folic Acid 1 MG tablet 1 mg PO DAILY Qty: 0 RF: 0 LUBIPROSTONE (AMITIZA) 24 MCG capsule 24 mcg PO HS Qty: 0 RF: 0 POLYETHYLENE GLYCOL 3350 (MIRALAX) 1 POW POW 17 g PO DAILY PRN (Reason: Constipation) Qty: 0 RF: 0 ASPIRIN (ASPIRIN EC) 81 MG tablet 81 mg PO QAM Qty: 0 RF: 0 Calcium Carbonate-Cholecalcife (Calcium 600+D 600-800 mg-Unit) 1 TAB tablet 1 tab PO Q12 Qty: 0 RF: 0 FEXOFENADINE HCL (PROMISE) 180 MG tablet 180 mg PO QPM Qty: 0 RF: 0 KETOTIFEN FUMARATE (OPHTH) (ZADITOR 0.025% OPH) 0.025 % ALFREDO 1 drp ophthalmic (eye) UD Qty: 0 RF: 0 PREGABALIN (LYRICA) 50 MG capsule 75 mg PO QPM Qty: 0 RF: 0 Azathioprine 50 MG tablet 50 mg PO QAM Qty: 0 RF: 0 Buspirone HCl 5 MG tablet 5 mg PO BID Qty: 0 RF: 0 CYCLOSPORINE MODIFIED (FOR ANA LUISA (CYCLOSPORINE MODIFIED) 50 MG capsule 200 mg PO HS Qty: 0 RF: 0 CYCLOSPORINE MODIFIED (FOR ANA LUISA (CYCLOSPORINE MODIFIED) 50 MG capsule 250 mg PO QAM Qty: 0 RF: 0 Lisinopril 20 MG tablet 20 mg PO HS Qty: 0 RF: 0 Lorazepam 1 MG tablet 1 mg PO TID PRN (Reason: Anxiety) Qty: 0 RF: 0 MIRTAZAPINE 45 MG tablet 45 mg PO HS Qty: 0 RF: 0 Methocarbamol 750 MG tablet 750 mg PO Q6H Qty: 0 RF: 0 OXYCODONE/ACETAMINOPHEN 7.5MG/325MG (PERCOCET 7.5MG/325MG) tablet 1 tab PO Q6H PRN (Reason: Pain) Qty: 0 RF: 0 PREGABALIN (LYRICA) 75 MG capsule 50 mg PO QAM Qty: 0 RF: 0 Pantoprazole (Pantoprazole Sodium) 40 MG tablet 40 mg PO BID Qty: 0 RF: 0 Rizatriptan Benzoate 10 MG tablet 10 mg PO UD PRN (Reason: Headache) Qty: 0 RF: 0 SODIUM CHLORIDE 1 GM tablet 1 g PO BID Qty: 0 RF: 0 Simvastatin 5 MG tablet 5 mg PO QPM Qty: 0 RF: 0 Verapamil HCl (Verapamil HCl ER) 240 MG [id number] 240 mg PO Q12 Qty: 0 RF: 0 ZOLPIDEM TARTRATE 10 MG tablet 10 mg PO HS PRN (Reason: Insomnia) Qty: 0 RF: 0 GLUCOSAMINE-FISH OIL-EPA-DHA (GLUCOSAMINE & FISH OIL) 1 CAP capsule 1 cap PO Q12 Qty: 0 RF: 0 MAGNESIUM CHLORIDE (SLOW-MAG TAB) 64 MG [id number] 64 mg PO BID Qty: 0 RF: 0 METOPROLOL TARTRATE (LOPRESSOR) 25 MG tablet 0.5 tab PO DAILY Qty: 0 RF: 0 Referrals Referrals: Stuart Ravi [Primary Care Provider] - The scribe's documentation has been prepared under my direction and personally reviewed by me in its entirety. I confirm that the note above accurately reflects all work, treatment, procedures, and medical decision making performed by me.
[2018-03-13] MEDS: ACETAMINOPHEN 325 MG TAB PO PRN ×2 (16:08→22:44)
--- NOTE | 2018-03-13 16:13 | Nephrology Consultation ---
Date of Consultation March 13, 2018 Assessment & Plan (1) ESBL (extended spectrum beta-lactamase) producing bacteria infection: -recommend infectious diseases consult and defer to them and primary service on abtx; had ertapenem dose in ER; not clear to me on review of [facility] cxs how e coli became so resistant so fast -recommend imaging of renal tranpslant kidney given remote stone hx and recurrent UTI/ongoing voiding sx Present on Admission?: Yes (2) UTI (urinary tract infection): as above >> see [facility] for UA/cx results Present on Admission?: Yes (3) Status post living-donor kidney transplantation: renal allograft funciton stable so far -continue outpt doses of cyclospirone, azathioprine, prednisone -daily bmp while in house for this issue; CYC levels not useful here Present on Admission?: Yes (4) Hypertension: elevated today but no bp meds on board so far in house and stressful situation; w/ renal and cardiac hx, control sumeet important. she admits to me she reintroduced her labetalol at home 200 mg bid and feels better on this / bp better but remains concerned -continue OP BP meds at this time including acei and assess after that for adjustments if needed Present on Admission?: Yes (5) Hyponatremia: managed historically w/ 2L fluid restriction and 1 gm bid salt tabs; labile values as OP this fall. had NS in ER 500 mL -agree w/ that FR -get serum osms, urine osms, rd urine Na w/ next labs -monitor bmp q6h for now >> goal sNa for am is 128 Present on Admission?: Yes History of Present Illness Reason for Consultation: renal transplant pt w/ hyponatremia, ESBL UTI failed OP therapy Requesting Physician: Dr Sen Attending Physician: Dr Sen History of Present Illness 47 y/o F w/ complex medical hx including ESRD s/p LR renal txplt admitted for hyponatremia and ESBL UTI. her presenting sodium is 124 today w/o sx; most recent one was 135 on 02/12; has been as low as 122 last fall; generally around 130 and managed w/ 2L/day FR, salt tabs 1 gm bid. Her baseline allograft function is 0.9-1.2 > creat today 0.9. had urine cxs done in [facility] > on 03/04 had E coli sensitive to all but ampicillin; then 03/09 specimen had 2 E coli types and more resistances. Last UTI prior to this was 06/2017. PMH includes ulcerative colitis, migraines, HTN, severe aortic rgg s/p valve replacement and pacemaker 01/2017, hemolytic anemia tx'd w/ rituxan and followed by Dr Clemons ( is last OV), reformed tobacco abuse, remote stones needing stent in 1990 and s/p nephrectomy for ? cause 1989, DVT in past. Sees DR David in CKD clinic. 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 Immunosuppression is cyclosporine 250/200; then imuran 50 mg daily and predisone 2.5 mg daily. AT most recent OV w/ Dr David 12/2017, ACEI upped back to bid 20 mg. Est recently w/ [facility] 12/2017 > UC in remission ; does have gastroparesis/chronic constipation, liver/pancreas cysts under surveillance. Allergies Allergy/AdvReac Type Severity Reaction Status Date / Time morphine Allergy Intermediate HIVES, HAS Verified 10/15/17 10:05 HAD CODEINE W/O PROBLEM hydralazine Allergy Unknown HIVES Verified 10/15/17 10:05 oxycodone AdvReac Severe BLOAT, Unverified 03/13/18 15:31 UNABLE TO EAT, CONSTIPATION valacyclovir AdvReac Intermediate NAUSEA, Unverified 10/15/17 10:05 VOMITING, DEHYDRATION Nitrate Analogues AdvReac Unknown migraines Verified 10/15/17 10:05 Home Medications Home Medications Medication Instructions Recorded Confirmed Type L.acidoph-L.rhamn-B.bif-B.long 2 cap PO DAILY 03/13/18 03/13/18 History [Probiotic Acidophilus Biobeads] ascorbic acid (vitamin C) 500 mg PO BID 03/13/18 03/13/18 History aspirin 162 mg PO QAM 03/13/18 03/13/18 History azathioprine 50 mg PO DAILY 03/13/18 03/13/18 History azathioprine 50 mg PO QAM 03/13/18 03/13/18 History biotin 10,000 mcg PO QAM 03/13/18 03/13/18 History buspirone 5 mg PO BID 03/13/18 03/13/18 History calcium carbonate-vitamin D3 1 tab PO BID 03/13/18 03/13/18 History [Caltrate 600 + D] cetirizine 10 mg PO DAILY 03/13/18 03/13/18 History cimetidine 400 mg PO Q12 03/13/18 03/13/18 History cyclosporine modified 200 mg PO HS 03/13/18 03/13/18 History cyclosporine modified 250 mg PO QAM 03/13/18 03/13/18 History diclofenac sodium 4 g TOPICAL QID PRN 03/13/18 03/13/18 History diphenhydramine HCl [Benadryl 25 mg PO Q4H PRN 03/13/18 03/13/18 History Allergy] docusate sodium [Colace] 100 mg PO BID 03/13/18 03/13/18 History fexofenadine [Earnestine Allergy] 180 mg PO DAILY 03/13/18 03/13/18 History gaei-mxw-bvs-blkbor-om 3,6,9 5 1 cap PO BID 03/13/18 03/13/18 History [[place] 3-6-9 Fatty Acids] fluticasone [Flonase Allergy 2 spray INTRANASAL HS 03/13/18 03/13/18 History Relief] folic acid 1 mg PO DAILY 03/13/18 03/13/18 History glucosamine wujp-sxoji-2-vit E 1 cap PO Q12 03/13/18 03/13/18 History [Glucosamine-Fish Oil] ketotifen fumarate 1 drp OPHTHALMIC (EYE) Q12H PRN 03/13/18 03/13/18 History labetalol 200 mg PO Q12 03/13/18 03/13/18 History lisinopril 20 mg PO BID 03/13/18 03/13/18 History lorazepam 1 mg PO TID PRN 03/13/18 03/13/18 History lubiprostone 24 mcg PO HS 03/13/18 03/13/18 History magnesium chloride 64 mg PO BID 03/13/18 03/13/18 History metaxalone [Skelaxin] 1 tab PO TID PRN 03/13/18 03/13/18 History metoprolol succinate 12.5 mg PO DAILY 03/13/18 03/13/18 History mirtazapine 45 mg PO HS 03/13/18 03/13/18 History multivitamin 1 tab PO QAM 03/13/18 03/13/18 History ondansetron 4 mg PO TID PRN 03/13/18 03/13/18 History oxcarbazepine 600 mg PO BID 03/13/18 03/13/18 History oxycodone 5 mg PO Q6H PRN 03/13/18 03/13/18 History pantoprazole [Protonix] 40 mg PO BID 03/13/18 03/13/18 History polyethylene glycol 3350 [Miralax] 17 g PO DAILY PRN 03/13/18 03/13/18 History prednisone 2.5 mg PO QAM 03/13/18 03/13/18 History rizatriptan 10 mg PO UD 03/13/18 03/13/18 History simvastatin 5 mg PO PM 03/13/18 03/13/18 History sodium chloride 1,000 mg PO BID 03/13/18 03/13/18 History sumatriptan succinate [Imitrex] 100 mg PO UD 03/13/18 03/13/18 History verapamil 240 mg PO Q12H 03/13/18 03/13/18 History zolpidem 10 mg PO HS PRN 03/13/18 03/13/18 History Patient History Medical History Anemia (Chronic) Gastroparesis (Chronic) 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" Hypertension (Chronic) History of DVT (deep vein thrombosis) (Chronic) GERD (gastroesophageal reflux disease) (Chronic) Migraine headache (Chronic) Dyslipidemia (Chronic) Autoimmune hemolytic anemia (Chronic) Pancreatic cyst (Chronic) Hypertensive heart disease (Chronic) Macular degeneration (Chronic) Ulcerative colitis (Chronic) Neurofibromatosis (Chronic) Cervicalgia (Chronic) Aortic regurgitation (Chronic) "s/p bioprosthetic AVR" History of pericarditis (Chronic) CKD (chronic kidney disease), stage III (Chronic) History of herpes zoster (Chronic) History of renal calculi (Chronic) Renal transplant recipient (Chronic) Surgical History History of tonsillectomy and adenoidectomy (Chronic) Cardiac pacemaker in situ (Chronic) Status post -donor kidney transplantation (Chronic) Status post living-donor kidney transplantation (Chronic) Status post aortic valve replacement with bioprosthetic valve (Chronic) Family History Grandmother (Maternal) CAD (coronary artery disease) Grandfather (Paternal) CAD (coronary artery disease) Other No family history of kidney disease Social History Current Living Situation: Spouse Other Information That Helps Us Care for You: No Feels Safe at Home: Yes Safety Concerns: Feels Safe At This Time Smoking Status: Former smoker Hx Alcohol Use: No Hx Substance Use: Yes Last Used Substance: Unknown Beliefs That Will Affect Care: None Preferred Language: Sami Communication Ability: Effective Review of Systems Constitutional: + fatigue; no fever, no chills, no weakness and no anorexia Eyes: no worsening vision Ear, Nose, Mouth, Throat: no dry mouth Respiratory: no cough, no dyspnea and no dyspnea on exertion Cardiovascular: no chest pain and no palpitations Gastrointestinal: + abdominal pain (focal RLQ) and + constipation; no change in bowel habits Genitourinary (Female): + dysuria, + difficulty urinating, + urinary frequency, + urinary hesitancy, + urinary urgency, + urinary incontinence and + post-void dribbling; no hematuria Musculoskeletal: no joint pain and no myalgia Integumentary: no rash Neurologic: no localized weakness, no generalized weakness and no paresthesia Psychiatric: no behavioral changes Endocrine: + fatigue Hematologic / Lymphatic: no easy bleeding Physical Exam 2 Vital Signs (Past 24 Hours): Last Vital Signs Temp 36.7 C 03/13/18 12:28 Pulse 77 03/13/18 14:05 Resp 20 03/13/18 14:05 BP 164/94 H 03/13/18 14:05 Pulse Ox 99 03/13/18 14:05 Constitutional: well developed and well nourished; no acute distress on ra maneuvers readily for exam Eyes: EOM intact bilaterally ENMT: Ears: no external ear abnormality Nose: no external nose abnormality Mouth: + dry oral mucous membranes Neck: no nuchal rigidity Respiratory: normal respiratory effort Auscultation: + diminished lung sounds Cardiovascular: Rate/Rhythm: regular rate and regular rhythm Heart Sounds: + murmur Extremities: no edema Gastrointestinal (Abdomen): Inspection/Auscultation: normal bowel sounds Percussion/Palpation: abdomen soft; abdomen nontender focal almost pinpoint RLQ tenderness over allograft; no bruit Musculoskeletal: Extremities: strength 5/5 throughout Skin: no rashes, warm and dry Neurologic: [place], fluent speech, no tremor Psychiatric: A+Ox3, euthymic affect Speech: normal rate/rhythm/volume of speech Insight: good insight Genitourinary: no parra Results & Data Laboratory Results Abnormal lab results 03/13/18 03/13/18 03/13/18 Range/Units 13:54 13:54 Unknown RBC 3.91 L (4.2-5.4) M/uL Hgb 11.9 L (12.0-16.0) g/dL Hct 33.2 L (37-47) % Mathews # (Auto) 0.67 H (0.11-0.59) K/uL Sodium 124 L (136-145) mmol/L Chloride 92 L (98-107) mmol/L Urine Nitrite Positive H (Negative) Ur Leukocyte Esterase 2+ H (Negative) Urine WBC (Auto) >30 H (0-5) /hpf Urine Bacteria (Auto) 4+ H (Negative) _ (1) UTI (urinary tract infection) Encounter type: Hematuria presence: without hematuria Indwelling urinary catheter type: Urinary tract infection type: site unspecified Qualified Code( s): N39.0 - Urinary tract infection, site not specified
--- NOTE | 2018-03-13 16:29 | History & Physical Report ---
Date of Service March 13, 2018 Assessment & Plan (1) ESBL (extended spectrum beta-lactamase) producing bacteria infection: This is a 47-year-old female with complex past medical history including hx of membranous glomerulonephritis with esrd s/p renal transplantation done in 1984 which was lasted for about 5 years then in 1990, she had another kidney transplantation, neurofibromatosis, hx of cold agglutinin hemolytic anemia, Bovine Aortic Valve replacement, cardiac pacemaker in situ, chronic hyponatremia , HTN, HLD, gastroparesis, history of DVT, U.C., chronic pain syn, and other dx noted below who presents to [facility] at the recommendation of her PCP. Outpatient urine culture grew MDR ESBL UTI recommended carbapenem use therefore referred to [facility] for admission No signs of SIRS/Sepsis at this time. Patient afebrile, WBC WNL, hemodynamically stable, and lactate 0.6 -admit to telemetry med/surg -Ertapenam 1g q24 hr, duration tbd by ID -isolation precautions -consult I.D. Dr. Sanders -obtain blood culture and lactate -repeat BMP at 8pm, as well as CBC, BMP, Mag in a.m. (2) UTI (urinary tract infection): -plan as above (3) Hyponatremia: -chronic hyponatremia, on 2L fluid restriction as well as NACL tabs 1g bid -will continue fluid restriction and NACL tabs -patient appears more hypervolemic at this time -consult Dr. 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 Due to noticing elevated readings she started labetalol 200 mg twice daily on her own, she has previously been on this in the past -she will need outpatient f/u with cardiology regarding medication regimen -for now will hold metoprolol 12.5mg daily and continue labetolol (6) GERD (gastroesophageal reflux disease): -continue PPI, tagamet (7) Dyslipidemia: -continue statin, fish oil (8) Status post aortic valve replacement with bioprosthetic valve: -bovine heart valve -established with [facility] Cardiology (9) History of renal transplant: -continue cyclosporine and imuran -established with Dr. David nephrology outpatient -consult [facility] nephrology (10) Chronic pain syndrome: -on oxycodone 5mg q4hr prn, skelaxin 800mg po tid prn, ativan 1mg po tid prn -monitor closely, avoid further narcotic/benzo if able (11) Cardiac pacemaker in situ: -follows [facility] Cardiology for pacer checks (12) DVT prophylaxis: -SCDS/Teds only given hx of cold agglutinin hemolytic anemia -Early ambulation Disposition: D/C to home with possible IV antibiotics Follow-up with PCP Dr. Ravi upon discharge as well as Cardiology for medication review given metoprolol and labetolol Patient was seen in collaboration with Dr. Sen, please see addendum History of Present Illness Chief Complaint: UTI sx x 2 weeks. Primary Care Provider: Stuart Ravi This is a 47-year-old female with complex past medical history including hx of membranous glomerulonephritis with esrd s/p renal transplantation done in 1984 which was lasted for about 5 years then in 1990 she had another kidney transplantation, neurofibromatosis, hx of cold agglutinin hemolytic anemia, Bovine Aortic Valve replacement, cardiac pacemaker in situ, chronic hyponatremia , HTN, HLD, gastroparesis, history of DVT, U.C., chronic pain syn, and other dx noted below who presents to [facility] at the recommendation of her PCP. Initially on 03/03/18 patient developed urinary frequency, urgency , dysuria, bladder spasms and incontinence in which she presented to her PCP. Was diagnosed with UTI, placed on Cipro 500 mg twice daily times 7 days. She completed course on 03/09/18. Symptoms continued to persist and on 03/09 a repeat urine culture was obtained. This time resulting in MDR ESBL UTI. Given culture results pt was recommended to seek ED for parental antibiotics. She continues to complain of increased urinary frequency, dysuria, urinary urgency, right-sided suprapubic discomfort, feeling feverish. She denies documented fever, chills, sweats, lightheaded, dizziness, chest pain, shortness of breath, emesis, diarrhea, melena, hematochezia or flank pain. She has been taking Pyridium therefore uncertain if hematuria. Appetite has been normal and she has been drinking approp. She is to follow 2L FR given chronic hyponatremia. She does have hx of recurrent UTI, most recently in June 2017. is at bedside. Allergies Allergy/AdvReac Type Severity Reaction Status Date / Time morphine Allergy Intermediate HIVES, HAS Verified 10/15/17 10:05 HAD CODEINE W/O PROBLEM hydralazine Allergy Unknown HIVES Verified 10/15/17 10:05 oxycodone AdvReac Severe BLOAT, Unverified 03/13/18 15:31 UNABLE TO EAT, CONSTIPATION valacyclovir AdvReac Intermediate NAUSEA, Unverified 10/15/17 10:05 VOMITING, DEHYDRATION Nitrate Analogues AdvReac Unknown migraines Verified 10/15/17 10:05 Home Medications Home Medications Medication Instructions Recorded Confirmed Type L.acidoph-L.rhamn-B.bif-B.long 2 cap PO DAILY 03/13/18 03/13/18 History [Probiotic Acidophilus Biobeads] ascorbic acid (vitamin C) 500 mg PO BID 03/13/18 03/13/18 History aspirin 162 mg PO QAM 03/13/18 03/13/18 History azathioprine 50 mg PO DAILY 03/13/18 03/13/18 History azathioprine 50 mg PO QAM 03/13/18 03/13/18 History biotin 10,000 mcg PO QAM 03/13/18 03/13/18 History buspirone 5 mg PO BID 03/13/18 03/13/18 History calcium carbonate-vitamin D3 1 tab PO BID 03/13/18 03/13/18 History [Caltrate 600 + D] cetirizine 10 mg PO DAILY 03/13/18 03/13/18 History cimetidine 400 mg PO Q12 03/13/18 03/13/18 History cyclosporine modified 200 mg PO HS 03/13/18 03/13/18 History cyclosporine modified 250 mg PO QAM 03/13/18 03/13/18 History diclofenac sodium 4 g TOPICAL QID PRN 03/13/18 03/13/18 History diphenhydramine HCl [Benadryl 25 mg PO Q4H PRN 03/13/18 03/13/18 History Allergy] docusate sodium [Colace] 100 mg PO BID 03/13/18 03/13/18 History fexofenadine [Earnestine Allergy] 180 mg PO DAILY 03/13/18 03/13/18 History rirf-ywq-xot-blkbor-om 3,6,9 5 1 cap PO BID 03/13/18 03/13/18 History [[place] 3-6-9 Fatty Acids] fluticasone [Flonase Allergy 2 spray INTRANASAL HS 03/13/18 03/13/18 History Relief] folic acid 1 mg PO DAILY 03/13/18 03/13/18 History glucosamine zzis-rxlul-7-vit E 1 cap PO Q12 03/13/18 03/13/18 History [Glucosamine-Fish Oil] ketotifen fumarate 1 drp OPHTHALMIC (EYE) Q12H PRN 03/13/18 03/13/18 History labetalol 200 mg PO Q12 03/13/18 03/13/18 History lisinopril 20 mg PO BID 03/13/18 03/13/18 History lorazepam 1 mg PO TID PRN 03/13/18 03/13/18 History lubiprostone 24 mcg PO HS 03/13/18 03/13/18 History magnesium chloride 64 mg PO BID 03/13/18 03/13/18 History metaxalone [Skelaxin] 1 tab PO TID PRN 03/13/18 03/13/18 History metoprolol succinate 12.5 mg PO DAILY 03/13/18 03/13/18 History mirtazapine 45 mg PO HS 03/13/18 03/13/18 History multivitamin 1 tab PO QAM 03/13/18 03/13/18 History ondansetron 4 mg PO TID PRN 03/13/18 03/13/18 History oxcarbazepine 600 mg PO BID 03/13/18 03/13/18 History oxycodone 5 mg PO Q6H PRN 03/13/18 03/13/18 History pantoprazole [Protonix] 40 mg PO BID 03/13/18 03/13/18 History polyethylene glycol 3350 [Miralax] 17 g PO DAILY PRN 03/13/18 03/13/18 History prednisone 2.5 mg PO QAM 03/13/18 03/13/18 History rizatriptan 10 mg PO UD 03/13/18 03/13/18 History simvastatin 5 mg PO PM 03/13/18 03/13/18 History sodium chloride 1,000 mg PO BID 03/13/18 03/13/18 History sumatriptan succinate [Imitrex] 100 mg PO UD 03/13/18 03/13/18 History verapamil 240 mg PO Q12H 03/13/18 03/13/18 History zolpidem 10 mg PO HS PRN 03/13/18 03/13/18 History Past Med/Surg History Medical History Anemia (Chronic) Gastroparesis (Chronic) 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" Hypertension (Chronic) History of DVT (deep vein thrombosis) (Chronic) GERD (gastroesophageal reflux disease) (Chronic) Migraine headache (Chronic) Dyslipidemia (Chronic) Autoimmune hemolytic anemia (Chronic) Pancreatic cyst (Chronic) Hypertensive heart disease (Chronic) Macular degeneration (Chronic) Ulcerative colitis (Chronic) Neurofibromatosis (Chronic) Cervicalgia (Chronic) Aortic regurgitation (Chronic) "s/p bioprosthetic AVR" History of pericarditis (Chronic) CKD (chronic kidney disease), stage III (Chronic) History of herpes zoster (Chronic) History of renal calculi (Chronic) Renal transplant recipient (Chronic) Surgical History History of tonsillectomy and adenoidectomy (Chronic) Cardiac pacemaker in situ (Chronic) Status post -donor kidney transplantation (Chronic) Status post living-donor kidney transplantation (Chronic) Status post aortic valve replacement with bioprosthetic valve (Chronic) Family History Grandmother (Maternal) CAD (coronary artery disease) Grandfather (Paternal) CAD (coronary artery disease) Other No family history of kidney disease Social History marital status: Current Living Situation: Spouse Other Information That Helps Us Care for You: No Feels Safe at Home: Yes Safety Concerns: Feels Safe At This Time Smoking Status: Former smoker Hx Alcohol Use: No Hx Substance Use: Yes Last Used Substance: Unknown Beliefs That Will Affect Care: None Communication Ability: Effective Review of Systems All systems reviewed & are unremarkable except as noted in HPI & below Physical Exam 2 Vital Signs (Past 24 Hours): Last Vital Signs Temp 36.7 C 03/13/18 12:28 Pulse 84 03/13/18 16:02 Resp 20 03/13/18 16:02 BP 161/73 H 03/13/18 16:02 Pulse Ox 99 03/13/18 16:02 Physical Exam: Gen: WD/WN, F, NAD, sitting up in bed, pleasant, conversing easily Head: Normocephalic, Atraumatic Eyes: Sclera normal, no conjunctival injection, PERRLA, EOMI, mild periorbital edema and facial swelling ENT: Gross hearing intact, normal pharynx, mucous membranes moist Neck: supple, no adenopathy, No JVD, no bruit, Resp: Clear to auscultation b/l, no wheeze, rales, rhonchi. 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 Extremities: No edema bilaterally Skin: warm, moist, no rash, negative turgor, cap refill < 2sec Neuro: Alert and oriented x 3, speech normal, good mood/affect, cran nerve 2-12 intact grossly : deferred Results & Data Laboratory Results Short CBC 03/13/18 Range/Units 13:54 WBC 7.23 (4.8-10.8) K/uL Hgb 11.9 L (12.0-16.0) g/dL Hct 33.2 L (37-47) % Plt Count 256 (130-400) K/uL BMP 03/13/18 13:54 Sodium 124 L Potassium 4.4 Chloride 92 L Carbon Dioxide 24 BUN 16 Creatinine 0.89 Glucose 98 Calcium 8.5 Urine 03/13/18 Range/Units Unknown Urine Color Dark Yellow Urine Appearance Clear (Clear) Urine pH 6.0 (4.5-7.5) Ur Specific [place] 1.019 (1.000-1.030) Urine Protein Negative (Negative) Urine Glucose (UA) Negative (Negative) Ref Range & Units 4d ago Resulting Agency SPECIMEN DESCRIPTION CLEAN CATCH URINE R CULTURE Abnormal 10,000 TO 100,000 COLONIES/ML ESCHERICHIA COLI ESBL PRODUCING ORGANISM THIS GRAM NEGATIVE BACILLI DISPLAYS IN VITRO RESISTANCE TO MULTIPLE ANTIBIOTICS. THIS PATIENT MAY REQUIRE ISOLATION. CARBAPENEM USE IS PREFERRED. CONTACT INFECTIOUS DISEASE SERVICE FOR FURTHER RECOMMENDATIONS. GMIC[facility] CULTURE LESS THAN 10,000 COLONIES/ML MIXED NORMAL [place] [facility] REPORT STATUS 03/12/2018 FINAL GMICRO ORGANISM ESCHERICHIA COLI Abnormal GMICV ORGANISM ESCHERICHIA COLI Abnormal [facility] Susceptibility Escherichia coli (ZZ00) Escherichia coli (ZZ01) Not Specified Not Specified AMPICILLIN RESISTANT RESISTANT AMPICILLIN/SULBACTAM RESISTANT RESISTANT CEFEPIME SUSCEPTIBLE SENSITIVE CEFTRIAXONE RESISTANT RESISTANT CIPROFLOXACIN RESISTANT RESISTANT ERTAPENEM SUSCEPTIBLE SENSITIVE GENTAMICIN SUSCEPTIBLE SENSITIVE LEVOFLOXACIN RESISTANT RESISTANT MEROPENEM SUSCEPTIBLE SENSITIVE NITROFURANTOIN SUSCEPTIBLE SENSITIVE PIPERACILLIN TAZOBACTAM SUSCEPTIBLE SENSITIVE TRIMETH-SULFAMETHOXAZOLE SUSCEPTIBLE SENSITIVE Susceptibility Comments Escherichia coli (ZZ00) 10,000 TO 100,000 COLONIES/ML ESCHERICHIA COLI ESBL PRODUCING ORGANISM THIS GRAM NEGATIVE BACILLI DISPLAYS IN VITRO RESISTANCE TO MULTIPLE ANTIBIOTICS. THIS PATIENT MAY REQUIRE ISOLATION. CARBAPENEM USE IS PREFERRED. CONTACT INFECTIOUS DISEASE SERVICE FOR FURTHER RECOMMENDATIONS. Escherichia coli (ZZ01) 10,000 TO 100,000 COLONIES/ML ESCHERICHIA COLI ESBL PRODUCING ORGANISM THIS GRAM NEGATIVE BACILLI DISPLAYS IN VITRO RESISTANCE TO MULTIPLE ANTIBIOTICS. THIS PATIENT MAY REQUIRE ISOLATION. CARBAPENEM USE IS PREFERRED. CONTACT INFECTIOUS DISEASE SERVICE FOR FURTHER RECOMMENDATIONS. Specimen Collected: 03/09/18 4:25 PM Last Resulted: 03/12/18 12:20 PM Result His Code Status & VTE Plan Code Status Full Code, discussed with patient at bedside VTE Prophylaxis Plan VTE Prophylaxis will be ordered: Yes Reason for no VTE drug order: Adverse reaction to drug (Cold agglutinin hemolytic anemia) Supervising Physician Co-Signing Physician Notes Attending Addendum: delayed entry date of service as noted above care coordinated with MARIA ELENA Martins please refer to her notes for full details, I agree with her notes patient seen and examined, records reviewed by myself as well on exam, patient seen resting in bed reports some suprapubic discomfort and polyuria also has intermittent chillls and fatigue no other symptoms VS noted and reviewed oriented x 3, not in distress, speaks in sentences with no effort nor accessory muscle use normal rate, regular rhythm, no murmurs clear breath sounds bilaterally non distended, soft, mild suprapubic tenderness no bipedal edema, erythema, warmth no neuro deficits crea 0.89 Hg 11.9 Urine cultures from EPIC records reviewed ASSESSMENT AND PLAN E COLI ESBL UTI - start Ertapenem IV ID consulted HYPONATREMIA - acute on chronic discussed with GI will hold off on Lasix or IV fluids monitor Na HISTORY OF RENAL TRANSPLANT - resume usual Cyclosporine and Azathioprine other diagnoses and plan of care as per MARIA ELENA Sen MD _ (1) UTI (urinary tract infection) Encounter type: Hematuria presence: without hematuria Indwelling urinary catheter type: Urinary tract infection type: site unspecified Qualified Code( s): N39.0 - Urinary tract infection, site not specified
[2018-03-13] MEDS ORDERED: ZOLPIDEM TARTRATE 10 MG TAB PO PRN (16:45)
[2018-03-13] MEDS ORDERED: MAGNESIUM HYDROXIDE SUSP 30 ML UDC PO PRN (16:45)
[2018-03-13] MEDS ORDERED: POLYETHYLENE (MIRALAX) 17 GM PACK PO PRN (16:45)
[2018-03-13] MEDS ORDERED: LORazepam 1 MG TAB PO PRN (16:45)
[2018-03-13] MEDS ORDERED: ALUMINUM/MAGNESIUM SUSP 30 ML UDC PO PRN (16:45)
[2018-03-13] MEDS ORDERED: ONDANSETRON INJ 2 MG/ML 2 ML VIAL IV PRN (16:45)
--- NOTE | 2018-03-13 17:45 | Ultrasound Report ---
RENAL TRANSPLANT ULTRASOUND CLINICAL HISTORY: UTI, renal transplant COMPARISON STUDY: Renal transplant ultrasound February 15, 2017. TECHNIQUE: Grayscale and color and duplex Doppler sonography of the right lower quadrant allograft wa s performed. FINDINGS: Right lower quadrant renal allograft measures 12.3 cm in maximal dimension. Mild graft hydr onephrosis is similar to exam of February 15, 2017. Resistive indices within the segmental vessels of the allograft are within normal limits ranging from 0.6-0.7. The transplant artery and vein are paten t. There is no evidence for an anastomotic stricture. The iliac vein and artery are patent. Bladder i s underdistended but no abnormalities are identified. There is no perigraft fluid collection. IMPRESSION: 1. No change in mild right lower quadrant renal allograft hydronephrosis since prior exam. 2. Patent renal transplant artery and vein. Normal resistive indices. Electronically signed by: Ariel Coburn M.D. 03/13/2018 5:44 PM
[2018-03-13] MEDS: OXYCODONE HCL IR 5 MG TAB (IMMEDIATE RELEASE) PO PRN ×2 (18:07→22:44)
[2018-03-13] MEDS: METAXALONE 800 MG TABLET PO PRN ×2 (18:31→22:44)
[2018-03-13] MEDS: cycloSPORINE 100 MG CAP PO SCH (19:59)
[2018-03-13] MEDS: MAGNESIUM CHLORIDE 64MG DELAYED REL TAB PO SCH (19:59)
[2018-03-13] MEDS: DOCUSATE SODIUM 100 MG CAP PO SCH (20:00)
[2018-03-13] MEDS: VERAPAMIL HCL 240 MG TABCR PO SCH (20:00)
[2018-03-13] MEDS: CIMETIDINE 400 MG TABLET PO SCH (20:00)
[2018-03-13] MEDS: PANTOprazole 40 MG TAB PO SCH (20:00)
[2018-03-13] MEDS: CALCIUM 600MG + VIT D 400 IU TAB PO SCH (20:00)
[2018-03-13] MEDS: ASCORBIC ACID 500 MG TAB PO SCH (20:01)
[2018-03-13] MEDS: OXcarbazepine 150 MG TABLET PO SCH (20:01)
[2018-03-13] MEDS: LABETALOL HCL 200 MG TAB PO SCH (20:01)
[2018-03-13] MEDS: FLUTICASONE PROPIONATE NA SPR 16 GM BTL SCH (20:02)
[2018-03-13] MEDS: SODIUM CHLORIDE 1 GM TABLET PO SCH (20:03)
[2018-03-13] MEDS: MIRTAZAPINE SOLTAB 15 MG PO SCH (20:03)
[2018-03-13] MEDS: LUBIPROSTONE 8 MCG CAP PO SCH (20:05)
[2018-03-13] MEDS: OMEGA-3 (PURIFIED FISH OIL) 1 GM CAP PO SCH (20:05)
[2018-03-13] MEDS: LISINOPRIL 20 MG TAB PO SCH (20:06)
[2018-03-13] MEDS: SIMVASTATIN 5 MG TAB PO SCH (20:07)
[2018-03-13 20:50] LABS: BUN Creatinine Ratio 13.2 (10-20); Calcium 8.6 mg/dl (8.5-10.1); Creatinine Clr Calc Pharmacy 49.9 ml/min; Est GFR (African American) 61.5; Est GFR (Non-African American) 53.1; Potassium 3.6 mmol/L (3.5-5.1)
[2018-03-13] MEDS ORDERED: [UNRECOGNIZED DRUG - OTHER] PO SCH (21:00)
[2018-03-14 03:08] LABS: BUN Creatinine Ratio 18.7 (10-20); Calcium 8.8 mg/dl (8.5-10.1); Creatinine Clr Calc Pharmacy 55.8 ml/min; Est GFR (African American) 70.5; Est GFR (Non-African American) 60.8; Potassium 3.8 mmol/L (3.5-5.1)
[2018-03-14] MEDS: ACETAMINOPHEN 325 MG TAB PO PRN ×3 (03:52→16:31)
[2018-03-14] MEDS: OXYCODONE HCL IR 5 MG TAB (IMMEDIATE RELEASE) PO PRN ×4 (05:18→21:04)
[2018-03-14 07:15] LABS: Hematocrit (blood only) 33.6 % (37-47); Hemoglobin 11.9 g/dL (12.0-16.0); Mean Corpuscular Hgb Conc 35.4 g/dL (32-36); Mean Corpuscular Volume 85.9 fL (80-100); Mean Platelet Volume 8.6 fL (7.4-10.4); Platelet Count 238 K/uL (130-400); RDW Coefficient of Variation 13.3 % (11.5-14.5); RDW Standard Deviation 41.9 fL (36.4-46.3); Red Blood Count 3.91 M/uL (4.2-5.4); White Blood Count 6.22 K/uL (4.8-10.8)
[2018-03-14 07:50] LABS: BUN Creatinine Ratio 19.9 (10-20); Calcium 8.9 mg/dl (8.5-10.1); Creatinine Clr Calc Pharmacy 59.6 ml/min; Est GFR (African American) 76.4; Est GFR (Non-African American) 65.9; Potassium 3.7 mmol/L (3.5-5.1)
--- NOTE | 2018-03-14 08:11 | Nephrology Progress Note ---
Date of Service March 14, 2018 Assessment & Plan (1) ESBL (extended spectrum beta-lactamase) producing bacteria infection: -f/u infectious diseases recs re abtx; had ertapenem dose in ER; not clear to me on review of EPIC cxs how e coli became so resistant so fast but cont ertapenem per inf dzs -ensure [facility] system ua's and urine cx results available to inf dzs -- i put these on paper chart for review -renal txplt w/ normal resistive indices and stable mild hydronephrosis (2) UTI (urinary tract infection): as above >> see EPIC for UA/cx results (3) Status post living-donor kidney transplantation: renal allograft funciton stable so far again this am -continue outpt doses of cyclospirone, azathioprine, prednisone -daily bmp while in house for this issue; CYC levels not useful here (4) Hypertension: improved; elevated yesterday w/o bp meds on board and stressful situation ; w/ renal and cardiac hx, control sumeet important. she admits to me she reintroduced her labetalol at home 200 mg bid and feels better on this / bp better but remains concerned -continue OP BP meds at this time including acei and assess after that for adjustments if needed (5) Hyponatremia: managed historically w/ 2L fluid restriction and 1 gm bid salt tabs; labile values as OP this fall. had NS in ER 500 mL -agree w/ that FR 2L for now -monitor bmp bid for now >> goal sNa for am is 134 Subjective sees on rounds this am; feeling a bit better; fewer voiding sx. less pain over allograft (had been point pain); no sob, no edema/palpitations; no rash; no diarrhea or n/v. dislikes renal diet and wants regular one; hungry. no focal numbness/weakness. no thirst, + cold intolerance Physical Exam 2 Vital Signs (Past 24 Hours): Last Vital Signs Temp 36.3 C L 03/14/18 07:45 Pulse 62 03/14/18 07:45 Resp 18 03/14/18 07:45 BP 138/88 03/14/18 07:45 Pulse Ox 93 03/14/18 07:45 Constitutional: well developed and well nourished; no acute distress on RA , maneuvers readily for exam Eyes: EOM intact bilaterally ENMT: Ears: no external ear abnormality Nose: no external nose abnormality Mouth: + dry oral mucous membranes Neck: no nuchal rigidity Respiratory: normal respiratory effort Auscultation: + diminished lung sounds Cardiovascular: Rate/Rhythm: regular rate and regular rhythm Heart Sounds: + murmur Extremities: no edema Gastrointestinal (Abdomen): Inspection/Auscultation: normal bowel sounds Percussion/Palpation: abdomen soft; abdomen nontender less/smaller point tenderness over allograft RLQ Musculoskeletal: Extremities: strength 5/5 throughout Skin: no rashes, warm and dry Psychiatric: A+Ox3, euthymic affect Speech: normal rate/rhythm/volume of speech Insight: good insight Genitourinary: no parra Results & Data Laboratory Results Abnormal lab results 03/13/18 03/13/18 03/13/18 Range/Units 13:54 13:54 20:08 RBC 3.91 L (4.2-5.4) M/uL Hgb 11.9 L (12.0-16.0) g/dL Hct 33.2 L (37-47) % [place] # (Auto) 0.67 H (0.11-0.59) K/uL Sodium 124 L 127 L (136-145) mmol/L Chloride 92 L 94 L (98-107) mmol/L BUN (7-18) mg/dl Creatinine 1.22 H D (0.6-1.2) mg/dl Glucose 100 H (70-99) mg/dl Osmolality (280-300) mOsm/kg Urine Nitrite (Negative) Ur Leukocyte Esterase (Negative) Urine WBC (Auto) (0-5) /hpf Urine Bacteria (Auto) (Negative) 03/13/18 03/13/18 03/14/18 Range/Units 20:08 Unknown 01:56 RBC (4.2-5.4) M/uL Hgb (12.0-16.0) g/dL Hct (37-47) % [place] # (Auto) (0.11-0.59) K/uL Sodium 130 L (136-145) mmol/L Chloride 96 L (98-107) mmol/L BUN 20 H (7-18) mg/dl Creatinine (0.6-1.2) mg/dl Glucose 106 H (70-99) mg/dl Osmolality 267 L (280-300) mOsm/kg Urine Nitrite Positive H (Negative) Ur Leukocyte Esterase 2+ H (Negative) Urine WBC (Auto) >30 H (0-5) /hpf Urine Bacteria (Auto) 4+ H (Negative) 03/14/18 03/14/18 Range/Units 06:49 06:49 RBC 3.91 L (4.2-5.4) M/uL Hgb 11.9 L (12.0-16.0) g/dL Hct 33.6 L (37-47) % [place] # (Auto) (0.11-0.59) K/uL Sodium 128 L (136-145) mmol/L Chloride 95 L (98-107) mmol/L BUN 20 H (7-18) mg/dl Creatinine (0.6-1.2) mg/dl Glucose (70-99) mg/dl Osmolality (280-300) mOsm/kg Urine Nitrite (Negative) Ur Leukocyte Esterase (Negative) Urine WBC (Auto) (0-5) /hpf Urine Bacteria (Auto) (Negative) _ (1) UTI (urinary tract infection) Encounter type: Hematuria presence: without hematuria Indwelling urinary catheter type: Urinary tract infection type: site unspecified Qualified Code( s): N39.0 - Urinary tract infection, site not specified
[2018-03-14] MEDS: OMEGA-3 (PURIFIED FISH OIL) 1 GM CAP PO SCH ×2 (08:48→20:54)
[2018-03-14] MEDS: METAXALONE 800 MG TABLET PO PRN ×2 (08:48→16:35)
[2018-03-14] MEDS: cycloSPORINE 25 MG CAP PO SCH (08:49)
[2018-03-14] MEDS: OXcarbazepine 150 MG TABLET PO SCH ×2 (08:49→20:48)
[2018-03-14] MEDS: CIMETIDINE 400 MG TABLET PO SCH ×2 (08:49→20:48)
[2018-03-14] MEDS: CALCIUM 600MG + VIT D 400 IU TAB PO SCH ×2 (08:49→20:50)
[2018-03-14] MEDS: PANTOprazole 40 MG TAB PO SCH ×2 (08:49→20:58)
[2018-03-14] MEDS: LABETALOL HCL 200 MG TAB PO SCH ×2 (08:49→20:49)
[2018-03-14] MEDS: LISINOPRIL 20 MG TAB PO SCH ×2 (08:50→20:51)
[2018-03-14] MEDS: FOLIC ACID 1 MG TAB PO SCH (08:50)
[2018-03-14] MEDS: CETIRIZINE HCL 10 MG TABLET PO SCH (08:50)
[2018-03-14] MEDS: FEXOFENADINE HCL 180 MG TAB PO SCH (08:51)
[2018-03-14] MEDS: MAGNESIUM CHLORIDE 64MG DELAYED REL TAB PO SCH ×2 (08:51→20:51)
[2018-03-14] MEDS: VERAPAMIL HCL 240 MG TABCR PO SCH ×2 (08:51→20:53)
[2018-03-14] MEDS: SODIUM CHLORIDE 1 GM TABLET PO SCH ×2 (08:51→20:48)
[2018-03-14] MEDS: cycloSPORINE 100 MG CAP PO SCH ×2 (08:51→20:56)
[2018-03-14] MEDS: DOCUSATE SODIUM 100 MG CAP PO SCH ×2 (08:52→20:50)
[2018-03-14] MEDS: azaTHIOprine 50 MG TAB PO SCH (08:52)
[2018-03-14] MEDS: predniSONE 2.5 MG TAB PO SCH (08:52)
[2018-03-14] MEDS: ASCORBIC ACID 500 MG TAB PO SCH ×2 (08:52→20:55)
[2018-03-14] MEDS: MULTIVITAMIN TAB PO SCH (08:53)
[2018-03-14] MEDS ORDERED: NON-FORMULARY MEDICATION (Biotin [Biotin] 10,000 MCG) PO SCH (09:00)
[2018-03-14] MEDS ORDERED: ASPIRIN 81 MG ECTAB PO SCH (09:00)
--- NOTE | 2018-03-14 09:30 | Hospitalist Progress Note ---
Date of Service March 14, 2018 Assessment & Plan (1) ESBL (extended spectrum beta-lactamase) producing bacteria infection: Per admitting PA notes: This is a 47-year-old female with complex past medical history including hx of membranous glomerulonephritis with esrd s/p renal transplantation done in 1984 which was lasted for about 5 years then in 1990, she had another kidney transplantation, neurofibromatosis, hx of cold agglutinin hemolytic anemia, Bovine Aortic Valve replacement, cardiac pacemaker in situ, chronic hyponatremia , HTN, HLD, gastroparesis, history of DVT, U.C., chronic pain syn, and other dx noted below who presents to [facility] at the recommendation of her PCP. Outpatient urine culture grew MDR ESBL UTI recommended carbapenem use therefore referred to [facility] for admission No signs of SIRS/Sepsis Clinically improving, afebrile ID consulted, recommend to continue ertapenem day #2 Will need at least 10-day course of IV ertapenem, ultrasound-guided IV access ordered Continue to monitor (2) UTI (urinary tract infection): -plan as above (3) Hyponatremia: -chronic hyponatremia, on 2L fluid restriction as well as NACL tabs 1g bid Improving -will continue fluid restriction and NACL tabs ID consulted, appreciate recommendations (4) History of membranous glomerulonephritis: -s/p renal transplant in 1984 and repeat in 1990 -follows [facility] -continue immunosuppresants (5) Hypertension: Admitting PA notes: -Blood pressure elevated upon admission -On lisinopril, verapamil, metoprolol as 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 Due to noticing elevated readings she started labetalol 200 mg twice daily on her own, she has previously been on this in the past -she will need outpatient f/u with cardiology regarding medication regimen -for now will hold metoprolol 12.5mg daily and continue labetolol BP stable Continue labetalol, lisinopril, verapamil (6) GERD (gastroesophageal reflux disease): -continue PPI, tagamet (7) Dyslipidemia: -continue statin, fish oil (8) Status post aortic valve replacement with bioprosthetic valve: -bovine heart valve -established with [facility] (9) History of renal transplant: -continue cyclosporine and imuran -established with Dr. David nephrology outpatient (10) Chronic pain syndrome: -on oxycodone 5mg q4hr prn, skelaxin 800mg po tid prn, ativan 1mg po tid prn -monitor closely, avoid further narcotic/benzo if able (11) Cardiac pacemaker in situ: -follows [facility] for pacer checks (12) DVT prophylaxis: -SCDS/Teds only given hx of cold agglutinin hemolytic anemia -Early ambulation Disposition: D/C to home with IV antibiotics when patient further clinically improves Follow-up with PCP Dr. Ravi upon discharge as well as Cardiology for medication review given metoprolol and labetolol Subjective Follow-up for UTI Seen resting in bed, sitting up, comfortable States she feels better today Abdominal pain and polyuria improving Denies chills, nausea vomiting Denies other symptoms Physical Exam 2 Vital Signs (Past 24 Hours): Last Vital Signs Temp 36.3 C L 03/14/18 07:45 Pulse 62 03/14/18 07:45 Resp 18 03/14/18 07:45 BP 138/88 03/14/18 07:45 Pulse Ox 93 03/14/18 07:45 Physical Exam: General- oriented x 3, not in distress, speaks in sentences with no effort or accessory muscle use Eyes- anicteric Neck- no JVD Lungs- clear breath sounds bilaterally, no wheezing, no crackles or rhonchi Heart- normal rate, regular rhythm; no murmurs Abdomen- normal bowel sounds, nondistended, soft, nontender Extremities- no pretibial edema, no calf tenderness Neuro- alert, oriented x 3; no gross focal neurologic deficits Skin- warm & dry Results & Data Laboratory Results Laboratory Results - last 24 hr 03/13/18 03/13/18 03/14/18 20:08 20:08 01:56 WBC RBC Hgb Hct MCV MCH MCHC RDW Std Deviation RDW Coeff of Delia Plt Count MPV Sodium 127 L 130 L Potassium 3.6 D 3.8 Chloride 94 L 96 L Carbon Dioxide 24 27 Anion Gap 9.0 7.0 BUN 16 20 H Creatinine 1.22 H D 1.09 Est Cr Clr Drug Dosing 49.9 55.8 Est GFR ( Amer) 61.5 70.5 Est GFR (Non-Af Amer) 53.1 60.8 BUN/Creatinine Ratio 13.2 18.7 Glucose 100 H 106 H Osmolality 267 L Calcium 8.6 8.8 Magnesium 2.0 Urine Osmolality Ur Random Sodium 03/14/18 03/14/18 03/14/18 06:49 06:49 09:55 WBC 6.22 RBC 3.91 L Hgb 11.9 L Hct 33.6 L MCV 85.9 MCH 30.4 MCHC 35.4 RDW Std Deviation 41.9 RDW Coeff of Delia 13.3 Plt Count 238 MPV 8.6 Sodium 128 L Potassium 3.7 Chloride 95 L Carbon Dioxide 24 Anion Gap 9.0 BUN 20 H Creatinine 1.02 Est Cr Clr Drug Dosing 59.6 Est GFR ( Amer) 76.4 Est GFR (Non-Af Amer) 65.9 BUN/Creatinine Ratio 19.9 Glucose 91 Osmolality Calcium 8.9 Magnesium Urine Osmolality 299 L Ur Random Sodium 03/14/18 03/14/18 09:55 17:04 WBC RBC Hgb Hct MCV MCH MCHC RDW Std Deviation RDW Coeff of Delia Plt Count MPV Sodium 129 L Potassium 4.5 D Chloride 96 L Carbon Dioxide 26 Anion Gap 7.0 BUN 21 H Creatinine 1.40 H D Est Cr Clr Drug Dosing 43.5 Est GFR ( Amer) 52.1 Est GFR (Non-Af Amer) 44.9 BUN/Creatinine Ratio 14.9 Glucose 107 H Osmolality Calcium 8.7 Magnesium Urine Osmolality Ur Random Sodium 57 _ (1) UTI (urinary tract infection) Encounter type: Hematuria presence: without hematuria Indwelling urinary catheter type: Urinary tract infection type: site unspecified Qualified Code( s): N39.0 - Urinary tract infection, site not specified
[2018-03-14] MEDS: LACTOBACILLUS ACIDOPHILUS (FLORANEX) TAB PO SCH (10:25)
--- NOTE | 2018-03-14 10:25 | Infectious Disease Consult ---
Date of Consultation March 14, 2018 Assessment & Plan (1) ESBL (extended spectrum beta-lactamase) producing bacteria infection: Patient with urinary tract infection with ESBL producing E. coli. Ertapenem appropriate therapy, and would recommend 7 days of IV antibiotics. Will not likely need PICC line as will need only 4-5 days of therapy as outpatient. Will discuss. Will follow. (2) UTI (urinary tract infection): History of Present Illness Reason for Consultation: ESBL UTI Attending Physician: Herb Sen MD History of Present Illness 47-year-old female with complicated past medical history including membranous glomerulonephropathy status post renal transplant x2, status post bovine aortic valve replacement, hypertension, history of DVT, cold agglutinin disease, states that approximately 2 weeks ago she developed symptoms of lower urinary tract infection with pain, dysuria, and frequency. Was treated with ciprofloxacin without improvement. Culture with relatively sensitive E. coli initially, but symptoms persisted, repeat urine culture has been done and shows now ESBL producing E. coli. Was started on ertapenem and starting to feel better this morning. Currently without fever. No flank pain. Allergies Allergy/AdvReac Type Severity Reaction Status Date / Time morphine Allergy Intermediate HIVES, HAS Verified 10/15/17 10:05 HAD CODEINE W/O PROBLEM hydralazine Allergy Unknown HIVES Verified 10/15/17 10:05 oxycodone AdvReac Severe BLOAT, Unverified 03/13/18 15:31 UNABLE TO EAT, CONSTIPATION valacyclovir AdvReac Intermediate NAUSEA, Unverified 10/15/17 10:05 VOMITING, DEHYDRATION Nitrate Analogues AdvReac Unknown migraines Verified 10/15/17 10:05 Home Medications Home Medications Medication Instructions Recorded Confirmed Type L.acidoph-L.rhamn-B.bif-B.long 2 cap PO DAILY 03/13/18 03/13/18 History [Probiotic Acidophilus Biobeads] ascorbic acid (vitamin C) 500 mg PO BID 03/13/18 03/13/18 History aspirin 162 mg PO QAM 03/13/18 03/13/18 History azathioprine 50 mg PO DAILY 03/13/18 03/13/18 History azathioprine 50 mg PO QAM 03/13/18 03/13/18 History biotin 10,000 mcg PO QAM 03/13/18 03/13/18 History buspirone 5 mg PO BID 03/13/18 03/13/18 History calcium carbonate-vitamin D3 1 tab PO BID 03/13/18 03/13/18 History [Caltrate 600 + D] cetirizine 10 mg PO DAILY 03/13/18 03/13/18 History cimetidine 400 mg PO Q12 03/13/18 03/13/18 History cyclosporine modified 200 mg PO HS 03/13/18 03/13/18 History cyclosporine modified 250 mg PO QAM 03/13/18 03/13/18 History diclofenac sodium 4 g TOPICAL QID PRN 03/13/18 03/13/18 History diphenhydramine HCl [Benadryl 25 mg PO Q4H PRN 03/13/18 03/13/18 History Allergy] docusate sodium [Colace] 100 mg PO BID 03/13/18 03/13/18 History fexofenadine [Earnestine Allergy] 180 mg PO DAILY 03/13/18 03/13/18 History iynr-ddd-fqt-blkbor-om 3,6,9 5 1 cap PO BID 03/13/18 03/13/18 History [[place] 3-6-9 Fatty Acids] fluticasone [Flonase Allergy 2 spray INTRANASAL HS 03/13/18 03/13/18 History Relief] folic acid 1 mg PO DAILY 03/13/18 03/13/18 History glucosamine ijij-uwezt-0-vit E 1 cap PO Q12 03/13/18 03/13/18 History [Glucosamine-Fish Oil] ketotifen fumarate 1 drp OPHTHALMIC (EYE) Q12H PRN 03/13/18 03/13/18 History labetalol 200 mg PO Q12 03/13/18 03/13/18 History lisinopril 20 mg PO BID 03/13/18 03/13/18 History lorazepam 1 mg PO TID PRN 03/13/18 03/13/18 History lubiprostone 24 mcg PO HS 03/13/18 03/13/18 History magnesium chloride 64 mg PO BID 03/13/18 03/13/18 History metaxalone [Skelaxin] 1 tab PO TID PRN 03/13/18 03/13/18 History metoprolol succinate 12.5 mg PO DAILY 03/13/18 03/13/18 History mirtazapine 45 mg PO HS 03/13/18 03/13/18 History multivitamin 1 tab PO QAM 03/13/18 03/13/18 History ondansetron 4 mg PO TID PRN 03/13/18 03/13/18 History oxcarbazepine 600 mg PO BID 03/13/18 03/13/18 History oxycodone 5 mg PO Q6H PRN 03/13/18 03/13/18 History pantoprazole [Protonix] 40 mg PO BID 03/13/18 03/13/18 History polyethylene glycol 3350 [Miralax] 17 g PO DAILY PRN 03/13/18 03/13/18 History prednisone 2.5 mg PO QAM 03/13/18 03/13/18 History rizatriptan 10 mg PO UD 03/13/18 03/13/18 History simvastatin 5 mg PO PM 03/13/18 03/13/18 History sodium chloride 1,000 mg PO BID 03/13/18 03/13/18 History sumatriptan succinate [Imitrex] 100 mg PO UD 03/13/18 03/13/18 History verapamil 240 mg PO Q12H 03/13/18 03/13/18 History zolpidem 10 mg PO HS PRN 03/13/18 03/13/18 History Patient History Medical History Anemia (Chronic) Gastroparesis (Chronic) 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" Hypertension (Chronic) History of DVT (deep vein thrombosis) (Chronic) GERD (gastroesophageal reflux disease) (Chronic) Migraine headache (Chronic) Dyslipidemia (Chronic) Autoimmune hemolytic anemia (Chronic) Pancreatic cyst (Chronic) Hypertensive heart disease (Chronic) Macular degeneration (Chronic) Ulcerative colitis (Chronic) Neurofibromatosis (Chronic) Cervicalgia (Chronic) Aortic regurgitation (Chronic) "s/p bioprosthetic AVR" History of pericarditis (Chronic) CKD (chronic kidney disease), stage III (Chronic) History of herpes zoster (Chronic) History of renal calculi (Chronic) Renal transplant recipient (Chronic) Surgical History History of tonsillectomy and adenoidectomy (Chronic) Cardiac pacemaker in situ (Chronic) Status post -donor kidney transplantation (Chronic) Status post living-donor kidney transplantation (Chronic) Status post aortic valve replacement with bioprosthetic valve (Chronic) Family History Grandmother (Maternal) CAD (coronary artery disease) Grandfather (Paternal) CAD (coronary artery disease) Other No family history of kidney disease Social History Current Living Situation: Spouse Other Information That Helps Us Care for You: No Feels Safe at Home: Yes Safety Concerns: Feels Safe At This Time Smoking Status: Former smoker Hx Alcohol Use: No Hx Substance Use: Yes Last Used Substance: Unknown Beliefs That Will Affect Care: None Preferred Language: Bhutanese Communication Ability: Effective Review of Systems All systems were reviewed and are negative except as per HPI Physical Exam 2 Vital Signs (Past 24 Hours): Last Vital Signs Temp 36.3 C L 03/14/18 07:45 Pulse 62 03/14/18 07:45 Resp 18 03/14/18 07:45 BP 138/88 03/14/18 07:45 Pulse Ox 93 03/14/18 07:45 Constitutional: WD/WN, vitals as above comfortable; no acute distress Eyes: PERRL, conjunctivae normal, anicteric sclerae ENMT: external ear and nose normal, oropharynx normal Neck: trachea midline, no thyromegaly neck nontender Respiratory: normal respiratory effort, lungs clear to auscultation normal percussion; does not use accessory muscles Cardiovascular: Rate/Rhythm: regular rate and regular rhythm Heart Sounds: normal S1, normal S2 and + murmur; no gallop and no cardiac rub Vessels: normal peripheral pulses; no JVD Gastrointestinal (Abdomen): normal bowel sounds, soft, nontender, no hepatosplenomegaly Musculoskeletal: no cyanosis or clubbing, extremities motor strength 5/5 Spine: thoracic spine normal to inspection and lumbar spine normal to inspection ; no cervical spinal tenderness Skin: no rashes, warm and dry normal turgor; no lesions Neurologic: patellar DTR's 2+ bilat, sensation intact no focal motor deficits Psychiatric: A+Ox3, euthymic affect Orientation: cooperative Lymphatic: no cervical or axillary lymphadenopathy no inguinal lymphadenopathy Results & Data Laboratory Results Short CBC 03/13/18 03/14/18 Range/Units 13:54 06:49 WBC 7.23 6.22 (4.8-10.8) K/uL Hgb 11.9 L 11.9 L (12.0-16.0) g/dL Hct 33.2 L 33.6 L (37-47) % Plt Count 256 238 (130-400) K/uL BMP 03/13/18 03/13/18 03/14/18 13:54 20:08 01:56 Sodium 124 L 127 L 130 L Potassium 4.4 3.6 D 3.8 Chloride 92 L 94 L 96 L Carbon Dioxide 24 24 27 BUN 16 16 20 H Creatinine 0.89 1.22 H D 1.09 Glucose 98 100 H 106 H Calcium 8.5 8.6 8.8 03/14/18 06:49 Sodium 128 L Potassium 3.7 Chloride 95 L Carbon Dioxide 24 BUN 20 H Creatinine 1.02 Glucose 91 Calcium 8.9 Urine 03/13/18 Range/Units Unknown Urine Color Dark Yellow Urine Appearance Clear (Clear) Urine pH 6.0 (4.5-7.5) Ur Specific [place] 1.019 (1.000-1.030) Urine Protein Negative (Negative) Urine Glucose (UA) Negative (Negative) Diagnostic Findings Microbiology 03/13/18 Unknown Urine,Clean Catch Urine Culture - Preliminary Gram negative bacilli RENAL TRANSPLANT ULTRASOUND CLINICAL HISTORY: UTI, renal transplant COMPARISON STUDY: Renal transplant ultrasound February 15, 2017. TECHNIQUE: Grayscale and color and duplex Doppler sonography of the right lower quadrant allograft was performed. FINDINGS: Right lower quadrant renal allograft measures 12.3 cm in maximal dimension. Mild graft hydronephrosis is similar to exam of February 15, 2017. Resistive indices within the segmental vessels of the allograft are within normal limits ranging from 0.6-0.7. The transplant artery and vein are patent. There is no evidence for an anastomotic stricture. The iliac vein and artery are patent. Bladder is underdistended but no abnormalities are identified. There is no perigraft fluid collection. IMPRESSION: 1. No change in mild right lower quadrant renal allograft hydronephrosis since prior exam. 2. Patent renal transplant artery and vein. Normal resistive indices. Electronically signed by: Ariel Coburn M.D. 03/13/2018 5:44 PM Dictated: 03/13/18 1741 Transcribed: 03/13/18 1741 _ (1) UTI (urinary tract infection) Encounter type: Hematuria presence: without hematuria Indwelling urinary catheter type: Urinary tract infection type: site unspecified Qualified Code( s): N39.0 - Urinary tract infection, site not specified
[2018-03-14] MEDS: ERTAPENEM SODIUM 1,000 MG in SODIUM CHLORIDE 0.9% 50 ML IV SCH (16:18)
[2018-03-14 17:41] LABS: BUN Creatinine Ratio 14.9 (10-20); Calcium 8.7 mg/dl (8.5-10.1); Creatinine Clr Calc Pharmacy 43.5 ml/min; Est GFR (African American) 52.1; Est GFR (Non-African American) 44.9; Potassium 4.5 mmol/L (3.5-5.1)
[2018-03-14] MEDS: SIMVASTATIN 5 MG TAB PO SCH (20:49)
[2018-03-14] MEDS: LUBIPROSTONE 8 MCG CAP PO SCH (20:52)
[2018-03-14] MEDS: MIRTAZAPINE SOLTAB 15 MG PO SCH (20:54)
[2018-03-14] MEDS: FLUTICASONE PROPIONATE NA SPR 16 GM BTL SCH (20:57)
[2018-03-15] MEDS: OXYCODONE HCL IR 5 MG TAB (IMMEDIATE RELEASE) PO PRN ×3 (00:50→13:03)
[2018-03-15] MEDS: ACETAMINOPHEN 325 MG TAB PO PRN (01:16)
[2018-03-15] MEDS: METAXALONE 800 MG TABLET PO PRN ×2 (01:17→08:58)
[2018-03-15 07:39] VITALS: TEMP 97.7; O2SAT 96
[2018-03-15] MEDS: predniSONE 2.5 MG TAB PO SCH (08:56)
[2018-03-15] MEDS: cycloSPORINE 100 MG CAP PO SCH (08:56)
[2018-03-15] MEDS: FEXOFENADINE HCL 180 MG TAB PO SCH (08:56)
[2018-03-15] MEDS: PANTOprazole 40 MG TAB PO SCH (08:57)
[2018-03-15] MEDS: azaTHIOprine 50 MG TAB PO SCH (08:57)
[2018-03-15] MEDS: LISINOPRIL 20 MG TAB PO SCH (08:57)
[2018-03-15] MEDS: VERAPAMIL HCL 240 MG TABCR PO SCH (08:57)
[2018-03-15] MEDS: LABETALOL HCL 200 MG TAB PO SCH (08:57)
[2018-03-15] MEDS: MULTIVITAMIN TAB PO SCH (08:57)
[2018-03-15] MEDS: MAGNESIUM CHLORIDE 64MG DELAYED REL TAB PO SCH (08:57)
[2018-03-15] MEDS: FOLIC ACID 1 MG TAB PO SCH (08:58)
[2018-03-15] MEDS: LACTOBACILLUS ACIDOPHILUS (FLORANEX) TAB PO SCH (08:58)
[2018-03-15] MEDS: ASCORBIC ACID 500 MG TAB PO SCH (08:58)
[2018-03-15] MEDS: CETIRIZINE HCL 10 MG TABLET PO SCH (08:58)
[2018-03-15] MEDS: DOCUSATE SODIUM 100 MG CAP PO SCH (08:58)
[2018-03-15] MEDS: CALCIUM 600MG + VIT D 400 IU TAB PO SCH (08:58)
[2018-03-15] MEDS: SODIUM CHLORIDE 1 GM TABLET PO SCH (08:59)
[2018-03-15] MEDS: OMEGA-3 (PURIFIED FISH OIL) 1 GM CAP PO SCH (08:59)
[2018-03-15] MEDS: CIMETIDINE 400 MG TABLET PO SCH (08:59)
[2018-03-15] MEDS ORDERED: ASPIRIN 81 MG ECTAB PO SCH (09:00)
[2018-03-15] MEDS: cycloSPORINE 25 MG CAP PO SCH (09:00)
[2018-03-15] MEDS: OXcarbazepine 150 MG TABLET PO SCH (09:00)
[2018-03-15 11:28] LABS: Basophils # (auto) 0.03 K/uL (0-0.2); Basophils % (auto) 0.5 %; Eosinophils # (auto) 0.18 K/uL (0-0.5); Eosinophils % (auto) 3.3 %; Hematocrit (blood only) 29.1 % (37-47); Hemoglobin 10.3 g/dL (12.0-16.0); Immature Granulocytes # (auto) 0.02 K/uL (0.00-0.02); Immature Granulocytes % (auto) 0.4 %; Lymphocytes # (auto) 1.92 K/uL (1.2-3.4); Lymphocytes % (auto) 34.8 %; Mean Corpuscular Hgb Conc 35.4 g/dL (32-36); Mean Corpuscular Volume 87.1 fL (80-100); Mean Platelet Volume 7.9 fL (7.4-10.4); Monocytes # (auto) 0.43 K/uL (0.11-0.59); Monocytes % (auto) 7.8 %; Neutrophils # (auto) 2.94 K/uL (1.4-6.5); Neutrophils % (auto) 53.2 %; Platelet Count 201 K/uL (130-400); RDW Coefficient of Variation 13.1 % (11.5-14.5); RDW Standard Deviation 42.7 fL (36.4-46.3); Red Blood Count 3.34 M/uL (4.2-5.4); White Blood Count 5.52 K/uL (4.8-10.8)
[2018-03-15 11:48] VITALS: PULSE 60
[2018-03-15 12:01] LABS: BUN Creatinine Ratio 21.4 (10-20); Calcium 8.3 mg/dl (8.5-10.1); Creatinine Clr Calc Pharmacy 61.2 ml/min; Est GFR (African American) 79.2; Est GFR (Non-African American) 68.3; Potassium 3.4 mmol/L (3.5-5.1)
[2018-03-15] MEDS: ERTAPENEM SODIUM 1,000 MG in SODIUM CHLORIDE 0.9% 50 ML IV SCH (12:08)
--- NOTE | 2018-03-15 14:57 | Hospitalist Progress Note ---
Date of Service March 15, 2018 Assessment & Plan (1) ESBL (extended spectrum beta-lactamase) producing bacteria infection: Per admitting PA notes: This is a 47-year-old female with complex past medical history including hx of membranous glomerulonephritis with esrd s/p renal transplantation done in 1984 which was lasted for about 5 years then in 1990, she had another kidney transplantation, neurofibromatosis, hx of cold agglutinin hemolytic anemia, Bovine Aortic Valve replacement, cardiac pacemaker in situ, chronic hyponatremia , HTN, HLD, gastroparesis, history of DVT, U.C., chronic pain syn, and other dx noted below who presents to [facility] at the recommendation of her PCP. Outpatient urine culture grew MDR ESBL UTI recommended carbapenem use therefore referred to [facility] for admission No signs of SIRS/Sepsis Clinically improving, afebrile ID consulted, recommend to continue ertapenem day #2 Will need at least 10-day course of IV ertapenem, ultrasound-guided IV access ordered Continue to monitor -- patient clinically improved and feels much better afebrile tolerating IV Eratapenem well -- discharge to home with home health services IV Ertapenem x 4 more days to complete 7 days total per ID recommendations -- ff up with PCP next week, Nephro as scheduled (2) UTI (urinary tract infection): -plan as above (3) Hyponatremia: -chronic hyponatremia, on 2L fluid restriction as well as NACL tabs 1g bid - Na improved to 132 continue fluid restriction and NACL tabs (4) History of membranous glomerulonephritis: -s/p renal transplant in 1984 and repeat in 1990 -follows [facility] neph[facility] -continue immunosuppresants (5) Hypertension: Admitting PA notes: -Blood pressure elevated upon admission -On lisinopril, verapamil, metoprolol as 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 Due to noticing elevated readings she started labetalol 200 mg twice daily on her own, she has previously been on this in the past -she will need outpatient f/u with cardiology regarding medication regimen -for now will hold metoprolol 12.5mg daily and continue labetolol BP stable Continue labetalol, lisinopril, verapamil -- d/c Metoprolol continue labetalol, lisinopril, verapamil (6) GERD (gastroesophageal reflux disease): -continue PPI, tagamet (7) Dyslipidemia: -continue statin, fish oil (8) Status post aortic valve replacement with bioprosthetic valve: -bovine heart valve -established with [facility] (9) History of renal transplant: -continue cyclosporine and imuran -established with Dr. David nephrology outpatient (10) Chronic pain syndrome: -on oxycodone 5mg q4hr prn, skelaxin 800mg po tid prn, ativan 1mg po tid prn -monitor closely, avoid further narcotic/benzo if able (11) Cardiac pacemaker in situ: -follows [facility] for pacer checks (12) DVT prophylaxis: -SCDS/Teds only given hx of cold agglutinin hemolytic anemia -Early ambulation Disposition: D/C to home with IV antibiotics Follow-up with PCP Dr. Ravi , Ne[facility] and [employer] Subjective ff up for UTI seen resting in bed, comfortable states she feels much better denies abdominal pain, fever/chills, nausea/vomiting, problems with urination denies other symptoms states she is ready and would like to be discharged today Physical Exam 2 Vital Signs (Past 24 Hours): Last Vital Signs Temp 36.5 C 03/15/18 11:47 Pulse 60 03/15/18 11:47 Resp 18 03/15/18 11:47 BP 114/79 03/15/18 11:47 Pulse Ox 96 03/15/18 11:47 Physical Exam: General- oriented x 3, not in distress, speaks in sentences with no effort or accessory muscle use Eyes- anicteric Neck- no JVD Lungs- clear BS, no rales/wheezing BL Heart- normal rate, regular rhythm; no murmurs Abdomen- normal bowel sounds, nondistended, soft, nontender Extremities- no pretibial edema, no calf tenderness Neuro- alert, oriented x 3; no gross focal neurologic deficits Skin- warm & dry Results & Data Laboratory Results Laboratory Results - last 24 hr 03/14/18 03/15/18 03/15/18 17:04 11:06 11:06 WBC 5.52 RBC 3.34 L Hgb 10.3 L Hct 29.1 L MCV 87.1 MCH 30.8 MCHC 35.4 RDW Std Deviation 42.7 RDW Coeff of Delia 13.1 Plt Count 201 MPV 7.9 Immature Gran % (Auto) 0.4 Neut % (Auto) 53.2 Lymph % (Auto) 34.8 [place] % (Auto) 7.8 Eos % (Auto) 3.3 Baso % (Auto) 0.5 Immature Gran # (Auto) 0.02 Neut # (Auto) 2.94 Lymph # (Auto) 1.92 [place] # (Auto) 0.43 Eos # (Auto) 0.18 Baso # (Auto) 0.03 Sodium 129 L 132 L Potassium 4.5 D 3.4 L D Chloride 96 L 100 Carbon Dioxide 26 26 Anion Gap 7.0 6.0 BUN 21 H 21 H Creatinine 1.40 H D 0.99 D Est Cr Clr Drug Dosing 43.5 61.2 Est GFR ( Amer) 52.1 79.2 Est GFR (Non-Af Amer) 44.9 68.3 BUN/Creatinine Ratio 14.9 21.4 H Glucose 107 H 120 H Calcium 8.7 8.3 L _ (1) UTI (urinary tract infection) Encounter type: Hematuria presence: without hematuria Indwelling urinary catheter type: Urinary tract infection type: site unspecified Qualified Code( s): N39.0 - Urinary tract infection, site not specified
--- NOTE | 2018-03-15 15:10 | Discharge Summary ---
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 Initially on 03/03/18 patient developed urinary frequency, urgency , dysuria, bladder spasms and incontinence in which she presented to her PCP. Was diagnosed with UTI, placed on Cipro 500 mg twice daily times 7 days. She completed course on 03/09/18. Symptoms continued to persist and on 03/09 a repeat urine culture was obtained. This time resulting in MDR ESBL UTI. Given culture results pt was recommended to seek ED for parental antibiotics. She continues to complain of increased urinary frequency, dysuria, urinary urgency, right-sided suprapubic discomfort, feeling feverish. She denies documented fever, chills, sweats, lightheaded, dizziness, chest pain, shortness of breath, emesis, diarrhea, melena, hematochezia or flank pain. She has been taking Pyridium therefore uncertain if hematuria. Appetite has been normal and she has been drinking approp. She is to follow 2L FR given chronic hyponatremia. She does have hx of recurrent UTI, most recently in June 2017. is at bedside. Admission Exam Per Admitting Provider Vital Signs (Past 24 Hours): Last Vital Signs Temp 36.7 C 03/13/18 12:28 Pulse 84 03/13/18 16:02 Resp 20 03/13/18 16:02 BP 161/73 H 03/13/18 16:02 Pulse Ox 99 03/13/18 16:02 Physical Exam: Gen: WD/WN, F, NAD, sitting up in bed, pleasant, conversing easily Head: Normocephalic, Atraumatic Eyes: Sclera normal, no conjunctival injection, PERRLA, EOMI, mild periorbital edema and facial swelling ENT: Gross hearing intact, normal pharynx, mucous membranes moist Neck: supple, no adenopathy, No JVD, no bruit, Resp: Clear to auscultation b/l, no wheeze, rales, rhonchi. 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 mushroom picker strength Extremities: No edema bilaterally Skin: warm, moist, no rash, negative turgor, cap refill < 2sec Neuro: Alert and oriented x 3, speech normal, good mood/affect, cran nerve 2-12 intact grossly : deferred Principal Diagnosis ESBL E COLI UTI Discharge Exam Vital Signs (Past 24 Hours): Last Vital Signs Temp 36.5 C 03/15/18 11:47 Pulse 60 03/15/18 11:47 Resp 18 03/15/18 11:47 BP 114/79 03/15/18 11:47 Pulse Ox 96 03/15/18 11:47 Physical Exam: General- oriented x 3, not in distress, speaks in sentences with no effort or accessory muscle use Eyes- anicteric Neck- no JVD Lungs- clear BS, no rales/wheezing BL Heart- normal rate, regular rhythm; no murmurs Abdomen- normal bowel sounds, nondistended, soft, nontender Extremities- no pretibial edema, no calf tenderness Neuro- alert, oriented x 3; no gross focal neurologic deficits Skin- warm & dry Discharge Data Allergies Allergy/AdvReac Type Severity Reaction Status Date / Time morphine Allergy Intermediate HIVES, HAS Verified 10/15/17 10:05 HAD CODEINE W/O PROBLEM hydralazine Allergy Unknown HIVES Verified 10/15/17 10:05 oxycodone AdvReac Severe BLOAT, Unverified 03/13/18 15:31 UNABLE TO EAT, CONSTIPATION valacyclovir AdvReac Intermediate NAUSEA, Unverified 10/15/17 10:05 VOMITING, DEHYDRATION Nitrate Analogues AdvReac Unknown migraines Verified 10/15/17 10:05 Consultations 03/13/18 15:47 Consult Infectious Diseases Routine Consult Nephrology Routine Ordered Studies 03/13/18 16:45 US renal transplant w dop Stat RENAL TRANSPLANT ULTRASOUND CLINICAL HISTORY: UTI, renal transplant COMPARISON STUDY: Renal transplant ultrasound February 15, 2017. TECHNIQUE: Grayscale and color and duplex Doppler sonography of the right lower quadrant allograft was performed. FINDINGS: Right lower quadrant renal allograft measures 12.3 cm in maximal dimension. Mild graft hydronephrosis is similar to exam of February 15, 2017. Resistive indices within the segmental vessels of the allograft are within normal limits ranging from 0.6-0.7. The transplant artery and vein are patent. There is no evidence for an anastomotic stricture. The iliac vein and artery are patent. Bladder is underdistended but no abnormalities are identified. There is no perigraft fluid collection. IMPRESSION: 1. No change in mild right lower quadrant renal allograft hydronephrosis since prior exam. 2. Patent renal transplant artery and vein. Normal resistive indices. 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 Outpatient urine culture grew MDR ESBL UTI recommended carbapenem use therefore referred to [facility] for admission No signs of SIRS/Sepsis ID consulted, recommend Ertapenem IV -- patient clinically improved and feels much better afebrile tolerating IV Eratapenem well -- discharge to home with home health services IV Ertapenem x 4 more days to complete 7 days total per ID recommendations -- ff up with PCP next week, Nephro as scheduled (2) UTI (urinary tract infection): -plan as above (3) Hyponatremia: -chronic hyponatremia, on 2L fluid restriction as well as NACL tabs 1g bid - Na improved to 132 continue fluid restriction and NCL tabs monitor Na level (4) History of membranous glomerulonephritis: -s/p renal transplant in 1984 and repeat in 1990 -follows [facility] nephrology -continue immunosuppresants (5) Hypertension: Admitting PA notes: -Blood pressure elevated upon admission -On lisinopril, verapamil, metoprolol as 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 Due to noticing elevated readings she started labetalol 200 mg twice daily on her own, she has previously been on this in the past -she will need outpatient f/u with cardiology regarding medication regimen -for now will hold metoprolol 12.5mg daily and continue labetolol BP stable Continue labetalol, lisinopril, verapamil hold Metoprolol monitor BP as outpatient (6) GERD (gastroesophageal reflux disease): -continue PPI, tagamet (7) Dyslipidemia: -continue statin, fish oil (8) Status post aortic valve replacement with bioprosthetic valve: -bovine heart valve -established with [facility] (9) History of renal transplant: -continue cyclosporine and imuran -established with Dr. David nephrology outpatient (10) Chronic pain syndrome: -on oxycodone 5mg q4hr prn, skelaxin 800mg po tid prn, ativan 1mg po tid prn (11) Cardiac pacemaker in situ: -follows [facility] for pacer checks (12) DVT prophylaxis: -SCDS/Teds only given hx of cold agglutinin hemolytic anemia -Early ambulation Disposition: D/C to home with IV antibiotics Follow-up with PCP Dr. Ravi , Nephro and Cancer Program Coordinator Total Time Total Time Spent Total Time Spent (In Minutes): 35 minutes Discharge Plan Discharge Items Patient Disposition: Home - Home Health Services Reason For Visit: ESBL UTI Discharge Diagnosis: UTI SECONDARY TO ESBL E COLI Discharge Goals: Diagnostic testing and Therapeutic intervention Activity: As commented below Activity Comment: RESUME ACTIVITY GRADUALLY TOLERATED Lifting: Wait until after follow-up appointment Exercise/Sports: Wait until after follow-up appointment Driving/Machine Use Comment: NO DRIVING UNTIL RE-EVALUATED BY PRIMARY CARE PHYSICIAN Non-emergency contact: Primary Care Provider Call non-emergency contact if: you have any medication questions, your symptoms worsen, your pain is not controlled, your pain is worsening, your pain is unusual for you, your pain is concerning for you and you have a fever Follow-up/Referrals: Stuart Ravi [Primary Care Provider] - 03/20/18 11:30 am Diet: Regular Addtl Provider Instructions: CONTINUE FOUR MORE DAYS OF IV ERTAPENEM TO COMPLETE 1 WEEK OF IV ERTAPENEM. FOLLOW UP WITH DR. RAVI NOTED ABOVE. FOLLOW UP WITH TRACTOR TRAILER OPERATOR AND MORTUARY TECHNICIAN SCHEDULED. CALL PRIMARY CARE PHYSICIAN OR RETURN TO ER IMMEDIATELY IF WITH RECURRENCE OF WORSENING OF SYMPTOMS. Prescriptions: New ertapenem 1 gram recon soln 1 gm IV DAILY 4 Days Qty: 4 RF: 0 Continue multivitamin Tablet 1 tab PO QAM RF: 0 buspirone 5 mg Tablet 5 mg PO BID RF: 0 polyethylene glycol 3350 [Miralax] 17 gram Powder In Packet 17 g PO DAILY PRN (Reason: Constipation) RF: 0 cimetidine 400 mg tablet 400 mg PO Q12 RF: 0 ketotifen fumarate 0.025 % (0.035 %) Drops 1 drp OPHTHALMIC (EYE) Q12H PRN (Reason: Eye Irritation) RF: 0 sumatriptan succinate [Imitrex] 100 mg Tablet 100 mg PO UD RF: 0 lisinopril 20 mg Tablet 20 mg PO BID RF: 0 azathioprine 50 mg Tablet 50 mg PO QAM RF: 0 prednisone 2.5 mg Tablet 2.5 mg PO QAM RF: 0 pantoprazole [Protonix] 40 mg Tablet,Delayed Release (Dr/Ec) 40 mg PO BID RF: 0 biotin 10,000 mcg Capsule 10,000 mcg PO QAM RF: 0 docusate sodium [Colace] 100 mg Capsule 100 mg PO BID RF: 0 mirtazapine 45 mg Tablet 45 mg PO HS RF: 0 oxcarbazepine 600 mg Tablet 600 mg PO BID RF: 0 verapamil 240 mg Tablet Extended Release 240 mg PO Q12H RF: 0 lorazepam 1 mg tablet 1 mg PO TID PRN (Reason: Anxiety) RF: 0 zolpidem 10 mg tablet 10 mg PO HS PRN (Reason: Sleep) RF: 0 fluticasone [Flonase Allergy Relief] 50 mcg/actuation Sayner,Suspension 2 spray INTRANASAL HS RF: 0 glucosamine juvt-staim-4-vit E [Glucosamine-Fish Oil] 500-400-5 mg-mg-unit Capsule 1 cap PO Q12 RF: 0 cyclosporine modified 50 mg capsule 250 mg PO QAM RF: 0 cyclosporine modified 50 mg capsule 200 mg PO HS RF: 0 lubiprostone 24 mcg Capsule 24 mcg PO HS RF: 0 magnesium chloride 64 mg Tablet,Delayed Release (Dr/Ec) 64 mg PO BID RF: 0 calcium carbonate-vitamin D3 [Caltrate 600 + D] 600 mg (1,500 mg)-800 unit Tablet,Chewable 1 tab PO BID RF: 0 ascorbic acid (vitamin C) 500 mg Capsule 500 mg PO BID RF: 0 oxycodone 5 mg Tablet 5 mg PO Q6H PRN (Reason: Pain, Moderate) RF: 0 metaxalone [Skelaxin] 800 mg Tablet 1 tab PO TID PRN (Reason: Spasms) RF: 0 sodium chloride 1 gram Tablet 1,000 mg PO BID RF: 0 labetalol 200 mg Tablet 200 mg PO Q12 RF: 0 azathioprine 50 mg Tablet 50 mg PO DAILY RF: 0 simvastatin 5 mg Tablet 5 mg PO PM RF: 0 folic acid 1 mg Tablet 1 mg PO DAILY RF: 0 ondansetron 4 mg Tablet,Disintegrating 4 mg PO TID PRN (Reason: Nausea) RF: 0 diclofenac sodium 1 % Gel 4 g TOPICAL QID PRN (Reason: Pain) RF: 0 xhyg-jqr-gha-blkbor-om 3,6,9 5 [Lodge 3-6-9 Fatty Acids] 400-400-200 mg Capsule 1 cap PO BID RF: 0 L.acidoph-L.rhamn-B.bif-B.long [Probiotic Acidophilus Biobeads] 12.9 mg (2 billion cell) Tablet,Delayed Release (Dr/Ec) 2 cap PO DAILY RF: 0 cetirizine 10 mg Tablet 10 mg PO DAILY RF: 0 fexofenadine [Earnestine Allergy] 180 mg Tablet 180 mg PO DAILY RF: 0 Changed aspirin 81 mg Tablet,Delayed Release (Dr/Ec) 81 mg PO QAM 30 Days Qty: 0 RF: 0 Discontinued rizatriptan 10 mg Tablet 10 mg PO UD RF: 0 diphenhydramine HCl [Benadryl Allergy] 25 mg Tablet 25 mg PO Q4H PRN (Reason: Allergy Symptoms) RF: 0 metoprolol succinate 25 mg Tablet Extended Release 24 Hr 12.5 mg PO DAILY RF: 0 Stand-Alone Forms: [facility], Work/School Release (Inpt) Discharge Orders: Discharge Order (Routine); Ordered 03/15/18 Ordered By: Herb Sen Admission Data Admit Date/Time: 03/13/18 15:44 Attending Provider: Herb Sen Admit Provider: Herb Sen Primary Care Provider: Stuart Ravi Other Providers: Radha Sanders ; Lissy Ryder Service: Telemetry Other Interventions: Discharge Summary Assessment (RN) Last Done: 03/15/18 15:56 DC Date/Time DO NOT enter until pt leaves facility: 03/15/18 16:53
--- NOTE | 2018-03-15 15:42 | Infectious Disease Progress Nt ---
Date of Service March 15, 2018 Assessment & Plan (1) ESBL (extended spectrum beta-lactamase) producing bacteria infection: Patient with urinary tract infection with ESBL producing E. coli. Ertapenem appropriate therapy, and would recommend 7 days of IV antibiotics. To complete therapy as an outpatient. (2) UTI (urinary tract infection): Subjective Patient seen in follow-up for urinary tract infection. Feels well today. Offers no new complaints. Remains afebrile. Tolerating ertapenem without apparent difficulty. Review of Systems All systems reviewed & are unremarkable except as noted in HPI & below Physical Exam 2 Vital Signs (Past 24 Hours): Last Vital Signs Temp 36.5 C 03/15/18 11:47 Pulse 60 03/15/18 11:47 Resp 18 03/15/18 11:47 BP 114/79 03/15/18 11:47 Pulse Ox 96 03/15/18 11:47 Constitutional: WD/WN, vitals as above comfortable; no acute distress Eyes: PERRL, conjunctivae normal, anicteric sclerae ENMT: external ear and nose normal, oropharynx normal Neck: trachea midline, no thyromegaly neck nontender Respiratory: normal respiratory effort, lungs clear to auscultation normal percussion; does not use accessory muscles Cardiovascular: Rate/Rhythm: regular rate and regular rhythm Heart Sounds: normal S1, normal S2 and + murmur; no gallop and no cardiac rub Vessels: normal peripheral pulses; no JVD Gastrointestinal (Abdomen): normal bowel sounds, soft, nontender, no hepatosplenomegaly Musculoskeletal: no cyanosis or clubbing, extremities motor strength 5/5 Spine: thoracic spine normal to inspection and lumbar spine normal to inspection ; no cervical spinal tenderness Skin: no rashes, warm and dry normal turgor; no lesions Neurologic: patellar DTR's 2+ bilat, sensation intact no focal motor deficits Psychiatric: A+Ox3, euthymic affect Orientation: cooperative Lymphatic: no cervical or axillary lymphadenopathy no inguinal lymphadenopathy Results & Data Laboratory Results Short CBC 03/15/18 Range/Units 11:06 WBC 5.52 (4.8-10.8) K/uL Hgb 10.3 L (12.0-16.0) g/dL Hct 29.1 L (37-47) % Plt Count 201 (130-400) K/uL BMP 03/14/18 03/15/18 17:04 11:06 Sodium 129 L 132 L Potassium 4.5 D 3.4 L D Chloride 96 L 100 Carbon Dioxide 26 26 BUN 21 H 21 H Creatinine 1.40 H D 0.99 D Glucose 107 H 120 H Calcium 8.7 8.3 L Diagnostic Findings Microbiology 03/13/18 Unknown Urine,Clean Catch Urine Culture - Preliminary Gram negative bacilli 03/13/18 16:11 Blood Blood Culture - Preliminary No growth to date. 03/13/18 16:03 Blood Blood Culture - Preliminary No growth to date. _ (1) UTI (urinary tract infection) Encounter type: Hematuria presence: without hematuria Indwelling urinary catheter type: Urinary tract infection type: site unspecified Qualified Code( s): N39.0 - Urinary tract infection, site not specified
[2018-03-15 15:57] VITALS: BP 119/80
--- NOTE | 2018-03-15 16:06 | Nephrology Progress Note ---
Date of Service March 15, 2018 Assessment & Plan (1) ESBL (extended spectrum beta-lactamase) producing bacteria infection: -f/u infectious diseases recs re abtx> for a week of ertapenem -ensure [employer] 4 [employer] system ua's and urine cx results available to [facility] -- i put these on paper chart for review -renal txplt w/ normal resistive indices and stable mild hydronephrosis (2) UTI (urinary tract infection): as above >> see [facility] for UA/cx results (3) Status post living-donor kidney transplantation: renal allograft guillermo looked worse yesterday PM but this am back to baseline >>SINCE she had no acute renal failure during admission and since hyponatremia resolved appropriately, no need to move 06/2018 Dr David / CKD clinic f/u any sooner unless further complications arise -continue outpt doses of cyclospirone, azathioprine, prednisone -daily bmp while in house for this issue; CYC levels not useful here (4) Hypertension: improved; elevated yesterday w/o bp meds on board and stressful situation ; w/ renal and cardiac hx, control sumeet important. she admits to me she reintroduced her labetalol at home 200 mg bid and feels better on this / bp better but remains concerned -continue OP BP meds at this time including acei >> to this regimen, no adjustments needed (5) Hyponatremia: managed historically w/ 2L fluid restriction and 1 gm bid salt tabs; labile values as OP this fall. corrected appropriately -agree w/ that FR 2L for now -sodium this am at baseline; cont OP mgt regimen Subjective seen on rounds this am at about 0715. voiding sx much improved. no sob. no palpitations. no n/v. + BASS not relieved by caffeine/tylenol. pain over allograft also improved. feels she is tolerating abtx. no focal numbness/ wkness. no rash. eating well; no f Physical Exam 2 Vital Signs (Past 24 Hours): Last Vital Signs Temp 36.5 C 03/15/18 15:56 Pulse 60 03/15/18 15:56 Resp 18 03/15/18 15:56 BP 119/80 03/15/18 15:56 Pulse Ox 96 03/15/18 15:56 Constitutional: well developed and well nourished; no acute distress on RA , A&0 x 3, maneuvers readily for exam Eyes: EOM intact bilaterally ENMT: Ears: no external ear abnormality Nose: no external nose abnormality Mouth: + dry oral mucous membranes Neck: no nuchal rigidity Respiratory: normal respiratory effort Auscultation: + diminished lung sounds Cardiovascular: Rate/Rhythm: regular rate and regular rhythm Heart Sounds: + murmur Extremities: no edema Gastrointestinal (Abdomen): Inspection/Auscultation: normal bowel sounds Percussion/Palpation: abdomen soft; abdomen nontender tenderness over allograft improved Musculoskeletal: Extremities: strength 5/5 throughout Skin: no rashes, warm and dry Neurologic: Speech / Cognition: normal cognition Motor/Sensory: normal movement Psychiatric: A+Ox3, euthymic affect Speech: normal rate/rhythm/volume of speech Insight: good insight Genitourinary: no parra Results & Data Laboratory Results Abnormal lab results 03/14/18 03/15/18 03/15/18 Range/Units 17:04 11:06 11:06 RBC 3.34 L (4.2-5.4) M/uL Hgb 10.3 L (12.0-16.0) g/dL Hct 29.1 L (37-47) % Sodium 129 L 132 L (136-145) mmol/L Potassium 3.4 L D (3.5-5.1) mmol/L Chloride 96 L (98-107) mmol/L BUN 21 H 21 H (7-18) mg/dl Creatinine 1.40 H D (0.6-1.2) mg/dl BUN/Creatinine Ratio 21.4 H (10-20) Glucose 107 H 120 H (70-99) mg/dl Calcium 8.3 L (8.5-10.1) mg/dl _ (1) UTI (urinary tract infection) Encounter type: Hematuria presence: without hematuria Indwelling urinary catheter type: Urinary tract infection type: site unspecified Qualified Code( s): N39.0 - Urinary tract infection, site not specified
== END 2018-03-15 16:53 | disposition home health service (06) | DRG 690 ==
LOC: ED 12:26 → 2W 15:44 → UNDODISIN 03-15 15:58

== ENCOUNTER 2020-01-21 16:03 | Inpatient (IN) ==
[2020-01-21] MEDS ORDERED: ONDANSETRON INJ 2 MG/ML 2 ML VIAL IV STA (17:17)
--- NOTE | 2020-01-21 17:28 | Emergency Department Note ---
Impression & Plan DESIREE (acute kidney injury), Acute UTI, Acute pancreatitis, Acute hyponatremia, Dehydration ED Provider Note Provider: Renny Gleason MD DATE OF SERVICE:01/21/2020 CHIEF COMPLAINT: Hypotension, nausea vomiting HISTORY OF PRESENT ILLNESS: Patient is a 49-year-old female with a complex past medical history including renal transplant, colitis, lymphoma, ESBL UTIs, and hypertension presenting here today complaining of illness over the past approximately 5 days. Patient states she was diagnosed with urine infection and started on Bactrim on Sunday. Her urine pain with urination and suprapubic tenderness have improved with this. She is a renal transplant patient. Patient states all this is improved she has had some lightheadedness and stopped her home blood pressure medications. Her blood pressures were in the 90s on Sunday and have improved into the 120s and 1 teens off of her blood pressure medication now only on labetalol. Still having some lightheaded and dizziness. Patient reports she is very nauseous and vomiting and not able to hydrate herself well over the past 3 to 4 days. Patient denies any diarrhea and states she has not moved her bowels about 5 days. Denies any significant shortness of breath or chest pain. Does report some sinus congestion mild URI symptoms. Patient denies known sick exposure. Endorses some headache at times. REVIEW OF SYSTEMS: A total of 10 review of systems was obtained and negative except as stated above in the HPI. PAST MEDICAL HISTORY: As noted above MEDICATIONS: Reviewed home medication listings. SOCIAL HISTORY: , lives at home PHYSICAL EXAM: GENERAL: alert and oriented in no acute distress on stretcher, appears fatigued Head: normocephalic and atraumatic EYES: No injection, discharge or icterus. NECK: Trachea midline. Supple. ENT: Mucous membranes pink and moist. LUNGS: Airway patent. No retractions. Breath sounds clear HEART: Regular rate and rhythm. No chest wall tenderness ABDOMEN: Soft and non-tender, without guarding or rebound. SKIN: Acyanotic, warm, dry, without rashes EXTREMITIES: Without swelling, tenderness or deformity NEUROLOGICAL: No aphasia. No facial droop or slurred speech. EK bpm atrially sensed ventricularly paced rhythm patient similar in morphology to previous March [id number] with the exception of some inferior T wave inversions noted. No significant acute ST segment elevation is noted. Prolonged QRS consistent with pacing. CONTINUOUS CARDIAC MONITORING: was ordered and showed a heart rate of 71 bpm in a ventricular paced rhythm Patient's laboratory studies and imaging reviewed. Differential includes Infection, dehydration, metabolic abnormality, h ypo/hyperglycemia, electrolyte disturbance, anemia, hypoxia, cardiac sources, intracerebral event, toxicologic, neurologic, as well as other pathologies. IMPRESSION/MEDICAL DECISION MAKING: Patient presents complaining of some lightheadedness dizziness and decreased intake over last several days while being treated for an E. coli UTI. Vital signs here without significant tachycardia or hypotension noted. [facility]. While the patient does have history of ESBL UTIs, appear to be E. coli sensitive to Bactrim from January 15 and states her urinary symptoms are improving over the last several days. Concern given her renal transplant and decreased intake for possible renal injury and/or dehydration. Given her nausea and vomiting and no bowel movement in [address] scan of the abdomen pelvis is obtained for possible obstructive pathology. Patient does not have that much significant abdominal pain at this point. Given she has little bit of runny nose and she is immunosuppressed with infectious symptoms did order a Covid test. Patient has no focal deficit I had CVA. Patient does not appear meningitic. Patient given some fluid hydration and Zofran here for symptom control. Patient later requested some Tylenol and this was given. Laboratory station no significant anemia and a white blood cell count of 7.7 actually somewhat high for her. Hyponatremia of 126 is noted with an elevated creatinine of 9.46. Lipase elevated 2000 concerning for pancreatitis and significant renal dysfunction. No significant hyperkalemia. Mild hyponatremia of 126 with a bicarb of 17. Troponin is undetectable. Bilirubin 1.1 without transaminitis. Covid was negative likely. Discussed with nephrology. CT scan showed some nonspecific thickening around the transplanted kidney concerning for possible infection mild dilation but no clear obstruction. No bowel obstruction noted but with pancreatic calcifications consistent with chronic pancreatitis and likely an acute component given the elevated lipase today. Nephrology stated that if the patient's wishes to be transferred but otherwise he felt comfortable monitoring here with hydration and monitoring her renal function. The patient was agreeable with this and did not really want to go to [place]. Doubt this is acute rejection given the timeline but feel it is reasonable to m onitor overnight and see how things go as there is no acute indication for dialysis at this point. Nephrology again was comfortable with this. Patient with some additional pain requested as well as Phenergan which was given with a small dose of fentanyl. Additional IV dose of ceftriaxone given recent UTI was ordered and administered as well. Discussed with the hospitalist. DIAGNOSIS: Acute UTI, acute kidney injury, hyponatremia, pancreatitis, dehydration DISPOSITION: Hospitalist will evaluate Patient was agreeable with this plan. 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" History of pericarditis History of renal calculi Hypertension Hypertensive heart disease Hyponatremia Leukopenia Macular degeneration Migraine headache Nausea and vomiting after administration of anesthetic agent Neurofibromatosis Pancreatic cyst Renal transplant recipient Ulcerative colitis Surgical [place] [facility] [place] History of biopsy renal History of cardiac cath 2017 prior to AVR--no stent History of chest tube placement History of colonoscopy History of cystoscopy History of esophagogastroduodenoscopy (EGD) History of lithotripsy History of tonsillectomy and adenoidectomy History of tooth extraction History of wisdom tooth extraction Status post aortic valve [place] with [place]oprost[place] [facility] [place] [place]follows with Dr. Rizo Status post -donor kidney transplantation 12/1984--removed 01/1990 Status post living-donor kidney transplantation in 06/1990 Family History Grandmother (Maternal) Coronary heart disease Family history of diabetes mellitus Grandfather (Paternal) Coronary heart disease Mother Kidney donor Other No family history of adverse response to anesthesia No family history of kidney disease Social History Smoking Status: Former smoker Tobacco Type: Cigarettes Second Hand Exposure: No; Hx Alcohol Use: No Hx Substance Use: No Preferred Language: Iraqi Communication Ability: Effective Resource Paraprofessional Required: No Beliefs That Will Affect Care: None marital status: Current Living Situation: Spouse Current Living Situation Comment: Feels Safe at Home: Yes Assistive Devices: Glasses Allergies Allergies Allergy/AdvReac Type Severity Reaction Status Date / Time hydralazine Allergy Severe Hives Verified 12/12/19 15:44 morphine Allergy Severe Hives Verified 12/12/19 15:44 nitroglycerin AdvReac Severe Migraine Verified 12/12/19 15:44 valacyclovir AdvReac Severe Vomiting Verified 12/12/19 15:44 Home Meds Home Medications Medication Instructions Recorded Confirmed Caltrate 600 plus D 1 tab PO BID 03/13/18 10/23/19 [place] 3-6-9 Fatty Acids 1 cap PO BID 03/13/18 10/23/19 ascorbic acid (vitamin C) 1,000 mg PO BID 03/13/18 10/23/19 biotin 10,000 mcg PO QAM 03/13/18 10/23/19 cetirizine 10 mg PO QAM 03/13/18 10/23/19 folic acid 1 mg PO QAM 03/13/18 10/23/19 lorazepam 1 mg PO Q8 PRN 03/13/18 10/23/19 magnesium chloride 64 mg PO BID 03/13/18 10/23/19 metaxalone [Skelaxin] 800 mg PO Q6 03/13/18 10/23/19 mirtazapine 45 mg PO HS 03/13/18 10/23/19 multivitamin 1 tab PO QAM 03/13/18 10/23/19 polyethylene glycol 3350 [Miralax] 17 g PO DAILY 03/13/18 10/23/19 prednisone 2.5 mg PO QAM 03/13/18 10/23/19 montelukast 10 mg PO QPM 10/24/18 10/23/19 aspirin 81 mg tablet,delayed 81 mg PO QAM 01/08/19 10/23/19 release buspirone 5 mg tablet 5 mg PO TID tab 01/08/19 10/23/19 cimetidine 400 mg tablet 400 mg PO BID 01/08/19 10/23/19 fluticasone propionate 50 2 spray INTRANASAL HS gm 01/08/19 10/23/19 mcg/actuation nasal spray,suspension melatonin 5 mg capsule 10 - 15 mg PO HS cap 01/08/19 10/23/19 ondansetron HCl 4 mg tablet 4 mg PO TID PRN 01/08/19 10/23/19 pantoprazole 40 mg tablet,delayed 40 mg PO BID tab 01/08/19 10/23/19 release rosuvastatin 5 mg tablet 5 mg PO QPM tab 01/08/19 10/23/19 sodium chloride 1 gram tablet 500 mg PO TID tab 01/08/19 10/23/19 zolpidem 10 mg tablet 5 - 10 mg PO HS tab 01/08/19 10/23/19 tramadol 100 mg PO TID 03/09/19 10/23/19 allopurinol 200 mg PO QAM 04/01/19 10/23/19 ibrutinib 280 mg PO HS 04/16/19 10/23/19 Probiotic Blend 1 cap PO HS 10/17/19 10/23/19 labetalol 300 mg PO QID 10/17/19 10/23/19 clonidine HCl 0.1 mg tablet 0.1 mg PO QID tab 12/12/19 12/12/19 cyclosporine 25 mg capsule 75 mg PO BID cap 12/12/19 12/12/19 oxycodone 5 mg capsule 5 mg PO QID PRN 12/12/19 12/12/19 Previous Rx's Medication Instructions Recorded rizatriptan 10 mg tablet 10 mg PO Q2H PRN #36 tab MDD 20 mg 01/08/19 fremanezumab-vfrm 225 mg/1.5 mL 225 mg SUBCUT MONTHLY 30 Days #1.5 12/22/19 subcutaneous syringe ml Results & Data (ED) Vital Signs Vital Signs - 24 hr 01/21/20 16:42 01/21/20 17:11 01/21/20 17:28 Temperature 36.5 C Temperature Source Oral Pulse Rate 72 66 Pulse Rate from SpO2 Sensor 66 Pulse Rhythm Respiratory Rate 20 18 Respiratory Effort / Characteristics Non-Labored Respiratory Depth Normal Blood Pressure 146/82 H 120/79 Blood Pressure Mean 103 82 Pulse Oximetry 96 96 Oxygen Delivery Method Room Air Room Air Sepsis Recent Fever Within 48 Hours No Sepsis New/Unexplained Change in Mental Status N/A Sepsis Action Taken by Nursing No Action Required 01/21/20 17:30 01/21/20 17:39 01/21/20 17:45 Temperature Temperature Source Pulse Rate 78 65 Pulse Rate from SpO2 Sensor 69 65 Pulse Rhythm Regular Respiratory Rate 20 18 Respiratory Effort / Characteristics Respiratory Depth Blood Pressure Blood Pressure Mean Pulse Oximetry 97 95 Oxygen Delivery Method Room Air Sepsis Recent Fever Within 48 Hours Sepsis New/Unexplained Change in Mental Status Sepsis Action Taken by Nursing 01/21/20 18:00 01/21/20 18:15 01/21/20 18:30 Temperature Temperature Source Pulse Rate 66 67 70 Pulse Rate from SpO2 Sensor 67 Pulse Rhythm Respiratory Rate 16 15 21 Respiratory Effort / Characteristics Respiratory Depth Blood Pressure Blood Pressure Mean Pulse Oximetry 96 Oxygen Delivery Method Sepsis Recent Fever Within 48 Hours Sepsis New/Unexplained Change in Mental Status Sepsis Action Taken by Nursing 01/21/20 18:45 01/21/20 19:00 01/21/20 19:07 Temperature Temperature Source Pulse Rate 68 69 71 Pulse Rate from SpO2 Sensor 69 71 Pulse Rhythm Respiratory Rate 17 17 21 Respiratory Effort / Characteristics Respiratory Depth Blood Pressure 129/78 Blood Pressure Mean 91 Pulse Oximetry 96 95 Oxygen Delivery Method Sepsis Recent Fever Within 48 Hours Sepsis New/Unexplained Change in Mental Status Sepsis Action Taken by Nursing 01/21/20 19:15 01/21/20 19:30 01/21/20 19:45 Temperature Temperature Source Pulse Rate 69 70 70 Pulse Rate from SpO2 Sensor 69 70 71 Pulse Rhythm Respiratory Rate 14 18 13 Respiratory Effort / Characteristics Respiratory Depth Blood Pressure Blood Pressure Mean Pulse Oximetry 93 96 96 Oxygen Delivery Method Sepsis Recent Fever Within 48 Hours Sepsis New/Unexplained Change in Mental Status Sepsis Action Taken by Nursing 01/21/20 20:00 01/21/20 20:19 01/21/20 20:20 Temperature Temperature Source Pulse Rate 74 72 71 Pulse Rate from SpO2 Sensor 74 80 71 Pulse Rhythm Respiratory Rate 19 15 15 Respiratory Effort / Characteristics Respiratory Depth Blood Pressure 136/79 Blood Pressure Mean 87 Pulse Oximetry 95 98 96 Oxygen Delivery Method Sepsis Recent Fever Within 48 Hours Sepsis New/Unexplained Change in Mental Status Sepsis Action Taken by Nursing 01/21/20 20:30 01/21/20 20:45 Temperature Temperature Source Pulse Rate 69 75 Pulse Rate from SpO2 Sensor 69 70 Pulse Rhythm Respiratory Rate 19 17 Respiratory Effort / Characteristics Respiratory Depth Blood Pressure 111/78 Blood Pressure Mean 85 Pulse Oximetry 95 93 Oxygen Delivery Method Sepsis Recent Fever Within 48 Hours Sepsis New/Unexplained Change in Mental Status Sepsis Action Taken by Nursing Laboratory Data Result diagrams: 01/21/20 18:57 01/21/20 18:57 Lab Results 01/21/20 01/21/20 01/21/20 Range/Units 18:20 18:20 18:57 WBC 7.74 (4.8-10.8) K/uL RBC 4.22 (4.2-5.4) M/uL Hgb 12.2 (12.0-16.0) g/dL Hct 35.5 L (37-47) % MCV 84.1 (80-100) fL MCH 28.9 (25-34) pg MCHC 34.4 (32-36) g/dL RDW Std Deviation 43.3 (36.4-46.3) fL RDW Coeff of Delia 14.0 (11.5-14.5) % Plt Count 212 (130-400) K/uL MPV 12.2 H (7.4-10.4) fL Immature Gran % (Auto) 3.6 % Neut % (Auto) 67.2 % Lymph % (Auto) 22.2 % [place] % (Auto) 6.3 % Eos % (Auto) 0.6 % Baso % (Auto) 0.1 % Neut # (Auto) 5.19 (1.4-6.5) K/uL Lymph # (Auto) 1.72 (1.2-3.4) K/uL [place] # (Auto) 0.49 (0.11-0.59) K/uL Eos # (Auto) 0.05 (0-0.5) K/uL Baso # (Auto) 0.01 (0-0.2) K/uL Immature Gran # (Auto) 0.28 H (0.00-0.02) K/uL PT (9.0-12.0) Seconds INR (0.9-1.1) Sodium (136-145) mmol/L Potassium (3.5-5.1) mmol/L Chloride (98-107) mmol/L Carbon Dioxide (21-32) mmol/L Anion Gap (3-11) BUN (7-18) mg/dl Creatinine (0.6-1.2) mg/dl Est Cr Clr Drug Dosing ml/min Est GFR ( Amer) Est GFR (Non-Af Amer) BUN/Creatinine Ratio (10-20) Glucose (70-99) mg/dl Lactate (0.4-2.0) mmol/L Calcium (8.5-10.1) mg/dl Magnesium (1.8-2.4) mg/dl Total Bilirubin (0.2-1) mg/dl AST (15-37) U/L ALT (12-78) U/L Alkaline Phosphatase (45-117) U/L Troponin I (0-0.045) ng/ml Total Protein (6.4-8.2) gm/dl Albumin (3.4-5.0) gm/dl Globulin (2.5-4.0) gm/dl Albumin/Globulin Ratio (0.9-2) Lipase (73-393) U/L TSH (0.300-4.500) uIu/ml Free T4 (0.8-1.6) ng/dl Urine Color Urine Appearance (Clear) Urine pH (4.5-7.5) Ur Specific [place] (1.000-1.030) Urine Protein (Negative) Urine Glucose (UA) (Negative) Urine Ketones (Negative) Urine Blood (Negative) Urine Nitrite (Negative) Urine Bilirubin (Negative) Urine Urobilinogen (Negative) Ur Leukocyte Esterase (Negative) Urine WBC (Auto) (0-5) /hpf Urine RBC (Auto) (0-4) /hpf U Hyaline Cast (Auto) (0-5) /lpf U Epithel Cells (Auto) (0-5) /lpf Urine Bacteria (Auto) (Negative) COVID-19 Eval Order Covid19 Done at [facility] COVID-19 PCR NEGATIVE (Negative) 01/21/20 01/21/20 01/21/20 Range/Units 18:57 18:57 18:57 WBC (4.8-10.8) K/uL RBC (4.2-5.4) M/uL Hgb (12.0-16.0) g/dL Hct (37-47) % MCV (80-100) fL MCH (25-34) pg MCHC (32-36) g/dL RDW Std Deviation (36.4-46.3) fL RDW Coeff of Delia (11.5-14.5) % Plt Count (130-400) K/uL MPV (7.4-10.4) fL Immature Gran % (Auto) % Neut % (Auto) % Lymph % (Auto) % [place] % (Auto) % Eos % (Auto) % Baso % (Auto) % Neut # (Auto) (1.4-6.5) K/uL Lymph # (Auto) (1.2-3.4) K/uL [place] # (Auto) (0.11-0.59) K/uL Eos # (Auto) (0-0.5) K/uL Baso # (Auto) (0-0.2) K/uL Immature Gran # (Auto) (0.00-0.02) K/uL PT 13.2 H (9.0-12.0) Seconds INR 1.3 H (0.9-1.1) Sodium 126 L (136-145) mmol/L Potassium 5.0 (3.5-5.1) mmol/L Chloride 93 L (98-107) mmol/L Carbon Dioxide 17 L (21-32) mmol/L Anion Gap 16.0 H (3-11) BUN 119 H (7-18) mg/dl Creatinine 9.46 H* (0.6-1.2) mg/dl Est Cr Clr Drug Dosing 6.9 ml/min Est GFR ( Amer) 5.1 Est GFR (Non-Af Amer) 4.4 BUN/Creatinine Ratio 12.6 (10-20) Glucose 81 (70-99) mg/dl Lactate 0.2 L (0.4-2.0) mmol/L Calcium 9.8 (8.5-10.1) mg/dl Magnesium 2.7 H (1.8-2.4) mg/dl Total Bilirubin 1.1 H (0.2-1) mg/dl AST 12 L (15-37) U/L ALT 15 (12-78) U/L Alkaline Phosphatase 72 (45-117) U/L Troponin I < 0.015 (0-0.045) ng/ml Total Protein 7.3 (6.4-8.2) gm/dl Albumin 2.9 L (3.4-5.0) gm/dl Globulin 4.4 H (2.5-4.0) gm/dl Albumin/Globulin Ratio 0.7 L (0.9-2) Lipase 2093 H (73-393) U/L TSH 0.176 L (0.300-4.500) uIu/ml Free T4 1.17 (0.8-1.6) ng/dl Urine Color Urine Appearance (Clear) Urine pH (4.5-7.5) Ur Specific [place] (1.000-1.030) Urine Protein (Negative) Urine Glucose (UA) (Negative) Urine Ketones (Negative) Urine Blood (Negative) Urine Nitrite (Negative) Urine Bilirubin (Negative) Urine Urobilinogen (Negative) Ur Leukocyte Esterase (Negative) Urine WBC (Auto) (0-5) /hpf Urine RBC (Auto) (0-4) /hpf U Hyaline Cast (Auto) (0-5) /lpf U Epithel Cells (Auto) (0-5) /lpf Urine Bacteria (Auto) (Negative) COVID-19 Eval Order COVID-19 PCR (Negative) 01/21/20 Range/Units 20:45 WBC (4.8-10.8) K/uL RBC (4.2-5.4) M/uL Hgb (12.0-16.0) g/dL Hct (37-47) % MCV (80-100) fL MCH (25-34) pg MCHC (32-36) g/dL RDW Std Deviation (36.4-46.3) fL RDW Coeff of Delia (11.5-14.5) % Plt Count (130-400) K/uL MPV (7.4-10.4) fL Immature Gran % (Auto) % Neut % (Auto) % Lymph % (Auto) % [place] % (Auto) % Eos % (Auto) % Baso % (Auto) % Neut # (Auto) (1.4-6.5) K/uL Lymph # (Auto) (1.2-3.4) K/uL [place] # (Auto) (0.11-0.59) K/uL Eos # (Auto) (0-0.5) K/uL Baso # (Auto) (0-0.2) K/uL Immature Gran # (Auto) (0.00-0.02) K/uL PT (9.0-12.0) Seconds INR (0.9-1.1) Sodium (136-145) mmol/L Potassium (3.5-5.1) mmol/L Chloride (98-107) mmol/L Carbon Dioxide (21-32) mmol/L Anion Gap (3-11) BUN (7-18) mg/dl Creatinine (0.6-1.2) mg/dl Est Cr Clr Drug Dosing ml/min Est GFR ( Amer) Est GFR (Non-Af Amer) BUN/Creatinine Ratio (10-20) Glucose (70-99) mg/dl Lactate (0.4-2.0) mmol/L Calcium (8.5-10.1) mg/dl Magnesium (1.8-2.4) mg/dl Total Bilirubin (0.2-1) mg/dl AST (15-37) U/L ALT (12-78) U/L Alkaline Phosphatase (45-117) U/L Troponin I (0-0.045) ng/ml Total Protein (6.4-8.2) gm/dl Albumin (3.4-5.0) gm/dl Globulin (2.5-4.0) gm/dl Albumin/Globulin Ratio (0.9-2) Lipase (73-393) U/L TSH (0.300-4.500) uIu/ml Free T4 (0.8-1.6) ng/dl Urine Color Yellow Urine Appearance Clear (Clear) Urine pH 5.0 (4.5-7.5) Ur Specific [place] 1.016 (1.000-1.030) Urine Protein 1+ H (Negative) Urine Glucose (UA) Negative (Negative) Urine Ketones Trace H (Negative) Urine Blood Trace H (Negative) Urine Nitrite Negative (Negative) Urine Bilirubin Negative (Negative) Urine Urobilinogen Negative (Negative) Ur Leukocyte Esterase Trace H (Negative) Urine WBC (Auto) 5-10 H (0-5) /hpf Urine RBC (Auto) 5-10 H (0-4) /hpf U Hyaline Cast (Auto) 0 (0-5) /lpf U Epithel Cells (Auto) 10-20 H (0-5) /lpf Urine Bacteria (Auto) Negative (Negative) COVID-19 Eval Order COVID-19 PCR (Negative) Administered Medications Sodium Bicarbonate 75 meq/ (Sodium Chloride) 1,075 mls @ 125 mls/hr IV .[id number] LA Stop: 02/20/20 20:14 Last Admin: 01/21/20 20:51 Dose: 125 mls/hr Documented by: [id number] Discontinued Medications Acetaminophen (Acetaminophen 500 Mg Tab) 1,000 mg PO NOW STA Stop: 01/21/20 19:07 Last Admin: 01/21/20 19:17 Dose: 1,000 mg Documented by: [id number] Fentanyl Citrate (Fentanyl Citrate 100 Mcg/2 Ml Vial) 25 mcg IV NOW STA Stop: 01/21/20 21:05 Last Admin: 01/21/20 21:22 Dose: 25 mcg Documented by: [id number] Sodium Chloride (Nss 1000ml) 1,000 mls @ 999 mls/hr IV .Q1H1M [facility] Stop: 01/21/20 18:30 Last Infusion: 01/21/20 20:20 Dose: 0 mls/hr Documented by: [id number] Admin: 01/21/20 19:18 Dose: 999 mls/hr Documented by: [id number] Ceftriaxone Sodium (Rocephin) 2,000 mg in 70 mls @ 140 mls/hr IV NOW STA Stop: 01/21/20 21:33 Last Admin: 01/21/20 21:22 Dose: 140 mls/hr Documented by: [id number] Promethazine HCl (Phenergan) 6.25 mg in 50.25 mls @ 201 mls/hr IV NOW STA Stop: 01/21/20 21:18 Last Admin: 01/21/20 21:22 Dose: 201 mls/hr Documented by: [id number] Ondansetron HCl (Ondansetron Inj 2 Mg/Ml 2 Ml Vial) 4 mg IV NOW STA Stop: 01/21/20 17:18 Last Admin: 01/21/20 19:17 Dose: 4 mg Documented by: [id number] Discharge Plan Visit Data Chief Complaint: Hypotension Stated Complaint: vertigo, nausea, vomiting, hypotension, dehydrated ED Provider: Renny Gleason Discharge Problem: DESIREE (acute kidney injury), Acute UTI, Acute pancreatitis, Acute hyponatremia, Dehydration Forms Stand Alone Forms: [facility] Prescriptions Prescriptions: No Action Ajovy Syringe 225 mg/1.5 mL syringe 225 mg subcut MONTHLY 30 Days Qty: 1.5 RF: 5 cyclosporine 25 mg capsule 75 mg PO BID RF: 0 oxycodone 5 mg capsule 5 mg PO QID PRNRF: 0 ubrogepant [Ubrelvy] 50 mg tablet RF: 0 rimegepant [Nurtec ODT] 75 mg tablet,disintegrating RF: 0 ondansetron HCl 4 mg tablet 4 mg PO TID PRN (Reason: Nausea) RF: 0 rosuvastatin [Crestor] 5 mg tablet 5 mg PO QPM RF: 0 aspirin [Adult Aspirin Regimen] 81 mg tablet,delayed release (DR/EC) 81 mg PO QAM RF: 0 cimetidine 400 mg tablet 400 mg PO BID RF: 0 melatonin 5 mg capsule 10 - 15 mg PO HS RF: 0 rizatriptan 10 mg tablet 10 mg PO Q2H MDD 20 mg PRN (Reason: migraine) Qty: 36 RF: 3 multivitamin Tablet 1 tab PO QAM RF: 0 polyethylene glycol 3350 [Miralax] 17 gram Powder In Packet 17 g PO DAILY RF: 0 prednisone 2.5 mg Tablet 2.5 mg PO QAM RF: 0 biotin 10,000 mcg Capsule 10,000 mcg PO QAM RF: 0 mirtazapine 45 mg Tablet 45 mg PO HS RF: 0 lorazepam 1 mg tablet 1 mg PO Q8 PRN (Reason: Anxiety) RF: 0 magnesium chloride 64 mg Tablet,Delayed Release (Dr/Ec) 64 mg PO BID RF: 0 Caltrate 600 plus D 600 mg (1,500 mg)-800 unit Tablet,Chewable 1 tab PO BID RF: 0 ascorbic acid (vitamin C) 500 mg Capsule 1,000 mg PO BID RF: 0 metaxalone [Skelaxin] 800 mg Tablet 800 mg PO Q6 RF: 0 folic acid 1 mg Tablet 1 mg PO QAM RF: 0 [place] 3-6-9 Fatty Acids 400-400-200 mg Capsule 1 cap PO BID RF: 0 cetirizine 10 mg Tablet 10 mg PO QAM RF: 0 buspirone 5 mg tablet 5 mg PO TID RF: 0 fluticasone propionate [Flonase Allergy Relief] 50 mcg/actuation spray,suspension 2 spray INTRANASAL HS RF: 0 pantoprazole [Protonix] 40 mg tablet,delayed release (DR/EC) 40 mg PO BID RF: 0 sodium chloride 1 gram tablet 500 mg PO TID RF: 0 zolpidem 10 mg tablet 5 - 10 mg PO HS RF: 0 labetalol 300 mg Tablet 300 mg PO QID RF: 0 Probiotic Blend 2 billion cell-50 mg Capsule 1 cap PO HS RF: 0 clonidine HCl 0.1 mg tablet 0.1 mg PO QID RF: 0 montelukast 10 mg tablet 10 mg PO QPM RF: 0 tramadol 100 mg Tablet Extended Release 24 Hr 100 mg PO TID RF: 0 allopurinol 100 mg Tablet 200 mg PO QAM RF: 0 ibrutinib 280 mg Tablet 280 mg PO HS RF: 0 Referrals Referrals: Stuart Ravi MD [Primary Care Provider] - Discharge Problem: Acute pancreatitis Qualifiers: Pancreatitis type: unspecified pancreatitis type Acute pancreatitis co mplication: unspecified Qualified Code(s): K85.90 - Acute pancreatitis without necrosis or infection, unspecified
[2020-01-21] MEDS ORDERED: SODIUM CHLORIDE 0.9% 1000ML 1,000 ML IV SCH (17:30)
--- NOTE | 2020-01-21 18:03 | XRay Report ---
XR chest 1V portable CLINICAL HISTORY: weakness COMPARISON STUDY: Chest radiograph October 09, 2017. FINDINGS: Lung volumes are normal. There is no pneumothorax or pleural effusion. Cardiomegaly is unch anged. There is a dual-lead left subclavian pacemaker, median sternotomy wires and prosthetic cardiac valve. The appearance of the chest is unchanged. No evidence for pneumonia. Pulmonary vascularity is normal. IMPRESSION: No acute cardiopulmonary findings. No change in appearance of the chest. ACT 112: Negative or not required by law. Electronically signed by: Ariel Coburn M.D. 01/21/2020 6:02 PM
[2020-01-21] MEDS ORDERED: ACETAMINOPHEN 500 MG TAB PO STA (19:06)
[2020-01-21 19:09] LABS: Basophils # (auto) 0.01 K/uL (0-0.2); Basophils % (auto) 0.1 %; Eosinophils # (auto) 0.05 K/uL (0-0.5); Eosinophils % (auto) 0.6 %; Hematocrit (blood only) 35.5 % (37-47); Hemoglobin 12.2 g/dL (12.0-16.0); Immature Granulocytes # (auto) 0.28 K/uL (0.00-0.02); Immature Granulocytes % (auto) 3.6 %; Lymphocytes # (auto) 1.72 K/uL (1.2-3.4); Lymphocytes % (auto) 22.2 %; Mean Corpuscular Hemoglobin 28.9 pg (25-34); Mean Corpuscular Hgb Conc 34.4 g/dL (32-36); Mean Corpuscular Volume 84.1 fL (80-100); Mean Platelet Volume 12.2 fL (7.4-10.4); Monocytes # (auto) 0.49 K/uL (0.11-0.59); Monocytes % (auto) 6.3 %; Neutrophils # (auto) 5.19 K/uL (1.4-6.5); Neutrophils % (auto) 67.2 %; Platelet Count 212 K/uL (130-400); RDW Standard Deviation 43.3 fL (36.4-46.3); Red Blood Count 4.22 M/uL (4.2-5.4); White Blood Count 7.74 K/uL (4.8-10.8)
[2020-01-21 19:38] LABS: Alanine Aminotransferase 15 U/L (12-78); Albumin Globulin Ratio 0.7 (0.9-2); Albumin Level 2.9 gm/dl (3.4-5.0); Alkaline Phosphatase 72 U/L (45-117); Aspartate Aminotransferase 12 U/L (15-37); BUN Creatinine Ratio 12.6 (10-20); Bilirubin,Total 1.1 mg/dl (0.2-1); Blood Urea Nitrogen 119 mg/dl (7-18); Calcium 9.8 mg/dl (8.5-10.1); Carbon Dioxide 17 mmol/L (21-32); Chloride 93 mmol/L (98-107); Creatinine Clr Calc Pharmacy 6.9 ml/min; Est GFR (African American) 5.1; Est GFR (Non-African American) 4.4; Globulin 4.4 gm/dl (2.5-4.0); Glucose 81 mg/dl (70-99); Lipase 2093 U/L (73-393); Magnesium 2.7 mg/dl (1.8-2.4); Sodium 126 mmol/L (136-145); Thyroid Stimulating Hormone 0.176 uIu/ml (0.300-4.500); Total Protein 7.3 gm/dl (6.4-8.2); Troponin I < 0.015 ng/ml (0-0.045)
[2020-01-21 19:40] LABS: INR 1.3 (0.9-1.1); Prothrombin Time 13.2 Seconds (9.0-12.0)
[2020-01-21 20:01] LABS: T4 Free Thyroxine 1.17 ng/dl (0.8-1.6)
[2020-01-21] MEDS ORDERED: SODIUM BICARBONATE 8.4% 75 MEQ in SODIUM CHLORIDE 0.45 % 1,000 ML IV SCH (20:15)
--- NOTE | 2020-01-21 20:36 | CT Scan Report ---
CT OF THE ABDOMEN AND PELVIS WITHOUT CONTRAST CLINICAL HISTORY: n/v, renal transplants COMPARISON STUDY: CT of the abdomen and pelvis October 10, 2017. Renal transplant ultrasound March 10, 2019. MRI of the abdomen February 08, 2018. TECHNIQUE: Axial images of the abdomen and pelvis were obtained without IV contrast. Images were revi ewed in the axial, sagittal, and coronal planes. Automated exposure control was utilized for the william dy. A dose lowering technique was utilized adhering to the principles of ALARA. FINDINGS: Lung bases are unremarkable. Pacer leads are partially imaged. There is a prosthetic cardia c valve which is partially imaged. No pneumatosis, free air or portal venous gas is present. A 3.7 cm right hepatic lobe cyst is unchanged. There is a suspected cyst within the [place] left kidney. Marke d atrophy of both [place] kidneys is noted. Mild splenomegaly is noted. This is decreased since prior exam. Unenhanced images of the adrenal glands are unremarkable. Pancreatic parenchymal calcifications are again noted. Numerous cystic pancreatic lesions appear similar to prior exams. The pancreas is s uboptimally assessed on this unenhanced examination. No peripancreatic infiltration is noted. There i s a moderate amount of stool within the right colon. There is no evidence for a bowel obstruction. Note is made of a right lower quadrant renal allograft. There is mild graft hydronephrosis which has been shown on prior exams. There is infiltration adjacent to the graft. There is suspected wall thick ening of the right collecting system and right ureter. Ureteral calculus is identified. No lymphadeno [place] is present. No perigraft fluid collections are present. No suspicious osseous lesions are noted . The appendix is normal. IMPRESSION: 1. Infiltration adjacent to the right lower quadrant renal allograft with urothelial thickening. This infiltration is nonspecific and could be correlated with urinalysis to exclude an infectious process . Mild graft collecting system dilatation, similar to prior exams. 2. No evidence for a bowel obstruction. Moderate amount of stool within the right colon. 3. Pancreatic calcifications consistent with chronic pancreatitis. No significant change in numerous cystic pancreatic lesions, suboptimally assessed on this exam. No change in appearance of the pancrea s. 4. Mild splenomegaly, decreased since prior exam. ACT 112: Negative or not required by law. Electronically signed by: Ariel Coburn M.D. 01/21/2020 8:35 PM
[2020-01-21] MEDS ORDERED: cefTRIAXone SODIUM 2,000 MG/70 ML BAG IV STA (21:04)
[2020-01-21] MEDS ORDERED: PROMETHAZINE 6.25 MG/50.25 ML BAG IV STA (21:04)
[2020-01-21] MEDS ORDERED: fentaNYL citrate 100 MCG/2 ML VIAL IV STA (21:04)
[2020-01-21 21:42] LABS: Appearance Urine Clear (Clear); Bacteria Urine Automated Negative (Negative); Bilirubin Urine Negative (Negative); Blood Urine Trace (Negative); Cast Urine Automated 0 /lpf (0-5); Color Urine Yellow; Glucose Urine UA Negative (Negative); Ketones Urine Trace (Negative); Leukocyte Esterase Urine Trace (Negative); Nitrite Urine Negative (Negative); Protein Urine 1+ (Negative); Specific Gravity Urine 1.016 (1.000-1.030); Urobilinogen Urine Negative (Negative)
[2020-01-21] MEDS ORDERED: diphenhydrAMINE Capsule 25 MG CAP PO PRN (23:52)
[2020-01-21] MEDS ORDERED: NITROGLYCERIN SL 0.4 MG/TAB TAB SL PRN (23:52)
[2020-01-21] MEDS ORDERED: POLYETHYLENE (MIRALAX) 17 GM PACK PO PRN (23:52)
[2020-01-21] MEDS ORDERED: ACETAMINOPHEN 325 MG TAB PO PRN (23:52)
[2020-01-22] MEDS ORDERED: LORazepam 1 MG TAB PO PRN (00:06)
[2020-01-22] MEDS: oxyCODONE HCL IR 5 MG TAB (IMMEDIATE RELEASE) PO PRN ×4 (00:56→21:40)
--- NOTE | 2020-01-22 01:06 | History and Physical Report ---
DATE OF ADMISSION: 01/21/2020 CHIEF COMPLAINT: Nausea, dehydration, hypertension, acute kidney injury. HISTORY OF PRESENT ILLNESS: This 49-year-old female with past medical history significant for history of renal transplant in early 90s, hemolytic anemia, chronic leukopenia, thrombocytopenia, history of recurrent UTIs, history of hypertension, history of complete heart block status post pacemaker, pancreatic cyst, hyperlipidemia, non-rheumatic aortic valve insufficiency, status post aortic valve replacement, history of right leg deep venous thrombosis, history of ulcerative colitis, history of nephritis and nephropathy with pathological lesion in kidney, chronic kidney disease, neurofibromatosis, migraines, macular degeneration, chronic pain syndrome, marginal zone lymphoma, cold agglutinin disease, history of aortic root repair. The patient lives with her . The patient was having nausea, vomiting and dizziness since last Sunday, she was diagnosed with UTI and she was prescribed Bactrim for pansensitive E. coli, but since last Sunday, she is not eating and drinking anything because she has a lot of nausea and abdominal discomfort and not moved her bowels because of not eating anything. Denies any fever, chills. Blood pressure was low, systolic in 70s, 80s in her family doctor's office today and she in spite holding her home medication, amlodipine and clonidine, she was taking labetalol. She was still vomiting, lightheadedness and standing becoming difficult, so the family physician advised to the ER. Here, she was found to have sodium of 126, potassium of 5, creatinine of 9.4, BUN of 119, CO2 17, anion gap of 16. Baseline creatinine around 1.1-1.2. Lactate was 0.2. Urinalysis, trace leukocyte esterase. COVID-19 PCR was negative in the ER. Lipase was elevated at 2000. CAT showing chronic pancreatitis findings and also CT of the abdomen and pelvis also showing some infiltration adjacent to the renal allograft with urothelial thickening, possible infectious process. Chest x-ray was okay. ER talked to Nephrology and recommended to start on half normal saline with bicarbonate drip. The patient wants to stay here today, does not want to transfer to [facility]. She says she is feeling fine, she does not think she needs to be transferred, afebrile. Denies any cough, no chest pain. She has her usual short of breath on exertion. Has some headache, no earache, has cough with postnasal drip. Constipated. Denies any blood in stools or denies any hematuria. No swelling in the legs, no rash. ALLERGIES: HYDRALAZINE, MORPHINE, NITROGLYCERIN, VALACYCLOVIR. PAST MEDICAL HISTORY: As mentioned above. PAST SURGICAL HISTORY: Ablation of peripheral nerves at C5-C6, colonoscopy, CAD, cardiac catheterization, cystoscopy, dental surgery, EGDs, EGD with endoscopic ultrasound, lithotripsy, PD catheter insertion, tonsillectomy, replacement of aortic valve with prosthetic valve, cadaver renal transplant, living donor renal transplant. MEDICATIONS: The patient is on Bactrim double strength 1 tablet p.o. b.i.d., oxycodone 5 mg p.o. q. 6 hours p.r.n., tizanidine 4 mg p.o. q. 6 hours p.r.n., amlodipine 5 mg p.o. daily, sodium chloride of 500 mg p.o. b.i.d., cimetidine 400 mg p.o. b.i.d., Zofran 4 mg p.o. q. 12 hours p.r.n., clonidine 0.1 mg p.o. q.i.d., promethazine 25 mg p.o. q. 8 hours p.r.n., ibrutinib 280 mg p.o. daily, tramadol 100 mg p.o. t.i.d., cyclosporine 150 mg p.o. b.i.d., Magic mouthwash 30 mL b.i.d., labetalol 300 mg p.o. q.i.d., allopurinol 200 mg p.o. daily, melatonin 10 mg p.o. at bedtime p.r.n., folic acid 1 mg p.o. daily, Crestor 5 mg p.o. daily, Protonix 40 mg p.o. daily, prednisone 2.5 mg p.o. daily, montelukast 10 mg p.o. daily, senna 1 tablet p.o. daily p.r.n., probiotic 1 2 capsules daily, omega fish oil 1 capsule b.i.d., Remeron 45 mg p.o. at bedtime, magnesium chloride salt 64 mg 2 tablets daily, aspirin 81 mg p.o. daily, Benadryl 25 mg p.o. q. 6 hours p.r.n., buspirone 5 mg p.o. t.i.d., Flonase 2 sprays each nostril daily, cetirizine 10 mg p.o. daily, biotin 500 mcg p.o. daily, vitamin C 500 mg p.o. daily, Ambien 10 mg p.o. at bedtime p.r.n., Ativan 1 mg p.o. t.i.d. p.r.n., MiraLax 17 grams p.o. daily p.r.n., calcium carbonate 600 plus D 1 tablet daily, multivitamins 1 tablet daily. FAMILY HISTORY: Significant for father has allergies, mother has hypertension, allergies, arthritis. Maternal grandfather has heart disorder, melanoma, asthma, arthritis, allergies, obesity. Maternal grandmother has obesity, hypertension, cholesterol, allergies. Paternal grandmother has arthritis, stomach cancer, chronic constipation, hypertension, obesity. Paternal grandfather has black lung, heart disorder, lung cancer. SOCIAL HISTORY: , lives with her . Former smoker, quit in 2017, smoked half pack a day for 5 years. Alcohol rarely. No drug use. REVIEW OF SYMPTOMS: As per HPI. Rest of review of symptoms negative. PHYSICAL EXAMINATION: GENERAL: The patient is of moderate build, not in acute distress. VITAL SIGNS: Temperature 36.5, pulse 72, respiratory rate 20, blood pressure 126/77, oxygen 96% on room air. HEENT: Pupils equal, round, and reactive to light. Oral mucosa moist. NECK: No JVD, no neck masses. CARDIOVASCULAR: S1, S2 heard, regular rate and rhythm, no murmur, no gallop. RESPIRATORY SYSTEM: Normal AP diameter. No accessory muscle use. No wheezing, no crackles. ABDOMEN: Soft, bowel sounds present. Mild abdominal discomfort. No guarding, no rigidity. No distention. CENTRAL NERVOUS SYSTEM: Cranial nerves II through XII grossly intact, nonfocal. EXTREMITIES: No edema, no erythema. LABORATORY DATA: WBC 7.7, hemoglobin 12.2, hematocrit 35.5 and platelets 212. PT 13.2, INR 1.3. Sodium 126, potassium 5, chloride 193, bicarbonate 17, BUN 119, creatinine 9.4, serum glucose 81. Lactate 0.2, calcium 9.8, magnesium 2.7, total bilirubin 1.1, AST 12, ALT 15, alkaline phosphatase 72. Troponin I less than 0.015. Lipase 2093. TSH 0.176. Free T4 1.1. Urinalysis, trace leukocyte esterase. COVID-19 PCR negative. IMAGING: CT of abdomen and pelvis without contrast shows infiltration adjacent to the right lower quadrant renal allograft with urothelial thickening, this infiltration is nonspecific and could be correlated with urinalysis to exclude an infectious process, mild graft collecting system dilatation, similar to prior exams. No evidence of bowel obstruction, moderate amount of stool within the right colon. Pancreatic calcifications consistent with chronic pancreatitis. No significant change in numerous cystic pancreatic lesions. No change in appearance of the pancreas, mild splenomegaly decreased since prior exam. ASSESSMENT AND PLAN: This 49-year-old female who was recently diagnosed with urinary tract infection, pansensitive Escherichia coli, comes with ongoing nausea, vomiting and hypotension, found to have acute kidney injury. 1. Acute kidney injury with creatinine of 9.4, status post history of renal transplant in early s. Baseline creatinine mostly around 1.1. The patient having nausea, vomiting and not able to eat anything, possibly dehydration . Will hold her blood pressure medications. Discussed with Nephrology, to continue to half normal saline with 75 mEq of bicarbonate at 100 mL per hour and follow the repeat labs in a.m. Neurology consulted for further recommendations. 2. Hyponatremia. Sodium 126. The patient has hx of chronic hyponatremia, and on sodium tablets. We will continue her home sodium tablets. Getting fluids as above. We will follow repeat labs in a.m. 3. History of recent diagnosis of marginal zone lymphoma, followed with hematology/oncology on, ibrutinib daily. 4. Hypertension, currently hypotensive. Holding on amlodipine, clonidine. To give labetalol with holding parameters. We will monitor the blood pressure. 5. History of kidney transplant. Continue her cyclosporine and also prednisone, await nephro input. 6. Hyperlipidemia, on statin. 7. Gastroesophageal reflux disease, on Protonix and famotidine. 8. Allergies: Continue Singulair. 9. Chronic pain: Continue home pain medications. 10. Elevated lipase. CAT scan showing chronic pancreatitis. Currently n.p.o. Fluids as above. We will repeat lipase in a.m. Consult GI evaluation in a.m. 11. History of hemolytic anemia, cold agglutinin disease. Hemoglobin stable at 12.2. 12. History of complete heart block status post pacemaker, history of aortic root repair, history of non-rheumatic aortic valve insufficiency, status post aortic valve replacement, prosthetic. 13. Deep venous thrombosis prophylaxis, sequential compression devices. DISPOSITION: Closely monitor in tele floor. Level 1 full code. MTDD
[2020-01-22 05:36] LABS: Basophils # (auto) 0.02 K/uL (0-0.2); Basophils % (auto) 0.2 %; Eosinophils # (auto) 0.14 K/uL (0-0.5); Eosinophils % (auto) 1.6 %; Hematocrit (blood only) 32.2 % (37-47); Hemoglobin 11.1 g/dL (12.0-16.0); Immature Granulocytes % (auto) 2.3 %; Lymphocytes # (auto) 2.54 K/uL (1.2-3.4); Lymphocytes % (auto) 29.7 %; Mean Corpuscular Hemoglobin 28.5 pg (25-34); Mean Corpuscular Hgb Conc 34.5 g/dL (32-36); Mean Corpuscular Volume 82.6 fL (80-100); Mean Platelet Volume 11.4 fL (7.4-10.4); Monocytes # (auto) 1.09 K/uL (0.11-0.59); Monocytes % (auto) 12.8 %; Neutrophils # (auto) 4.55 K/uL (1.4-6.5); Neutrophils % (auto) 53.4 %; Platelet Count 196 K/uL (130-400); RDW Coefficient of Variation 14.1 % (11.5-14.5); RDW Standard Deviation 42.5 fL (36.4-46.3); White Blood Count 8.54 K/uL (4.8-10.8)
[2020-01-22 06:14] LABS: BUN Creatinine Ratio 13.9 (10-20); Calcium 9.2 mg/dl (8.5-10.1); Creatinine Clr Calc Pharmacy 7.8 ml/min; Est GFR (Non-African American) 5.2; Potassium 4.4 mmol/L (3.5-5.1)
[2020-01-22] MEDS: SODIUM BICARBONATE 8.4% 75 MEQ in SODIUM CHLORIDE 0.45 % 1,000 ML IV SCH ×3 (06:21→18:40)
[2020-01-22] MEDS ORDERED: IMBRUVICA~ORDER AWAITING ACTION SCH (08:00)
[2020-01-22] MEDS: FAMOTIDINE 20 MG TAB PO SCH ×2 (08:21→20:03)
[2020-01-22] MEDS: cycloSPORINE 25 MG CAP PO SCH ×2 (08:22→20:03)
[2020-01-22] MEDS: ADVANCED PROBIOTIC 1250 MG CAPSULE PO SCH (08:23)
[2020-01-22] MEDS: POLYETHYLENE (MIRALAX) 17 GM PACK PO SCH (08:23)
[2020-01-22] MEDS: predniSONE 2.5 MG TAB PO SCH (08:24)
[2020-01-22] MEDS: busPIRone 5 MG TAB PO SCH ×3 (08:24→20:04)
[2020-01-22] MEDS: allopurinoL 100 MG TAB PO SCH (08:24)
[2020-01-22] MEDS: tiZANidine HCL 4 MG TABLET PO PRN ×2 (08:24→23:47)
[2020-01-22] MEDS: PANTOprazole 40 MG TAB PO SCH ×2 (08:24→20:04)
[2020-01-22] MEDS: ASCORBIC ACID 500 MG TAB PO SCH ×2 (08:24→20:04)
[2020-01-22] MEDS: CETIRIZINE HCL 10 MG TABLET PO SCH (08:25)
[2020-01-22] MEDS: LABETALOL HCL 300 MG TAB PO SCH ×4 (08:25→20:04)
[2020-01-22] MEDS: FOLIC ACID 1 MG TAB PO SCH (08:25)
[2020-01-22] MEDS: MULTIVITAMIN TAB PO SCH (08:25)
--- NOTE | 2020-01-22 08:27 | Nephrology Consultation ---
Date of Consultation January 22, 2020 Assessment & Plan (1) DESIREE (acute kidney injury): Stage 3 DESIREE w/ slight improvement since yesterday: concern for ATN in setting of n/v . she did have small improvement in labs overnight. making small urine but not documented to date. infiltration/inflammation adjacent to graft on imaging noted >> monitor but for now no intervention needed > she does have mild generalized TTP over allograft -no indication for urgent dialysis but cannot rule out need -lowered cyclosporine dose to 50 mg bid d/t DESIREE -not to have ibrutinib as below -strict I/O -continue IVF current rate -stable but significant anion gap metabolic acidosis on 03/13 NS w/ 75 mEq/L sod ium bicarb at 100 mL/hr>> may tolerate higher rate but already a bit bloated and w/ sNa increasing at acceptable rate -recheck bmp at 1300 ordered >>acceptable improvement in sNa and slight improvement in acidosis, creatinine, bun >>upped IVF rate to 125 mL / hr -stopped mag d/t elevated mag; stopped/held MVI d/t DESIREE, high K potentially in MVI -ordered low K diet d/t DESIREE Present on Admission?: Yes (2) History of kidney transplant: -severe DESIREE; immunosuppression (cyclosporine dose)reduced d/t DESIREE -no indication for cyclosporine level -cont prednisone Present on Admission?: Yes (3) Hyponatremia: -on OP salt tabs which here may contribute to GI upset > will stop them; will continue IVF as above and repeat noon labs -goal sNa for am 11/13 is 136 Present on Admission?: Yes (4) 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 as OP >> hold for now d/t DESIREE >> this medication has been known to cause severe Desiree and more commonly n/v/abd pain/constipation -recommend curbsiding hematology for further recommendations but would not give with current severe Desiree Present on Admission?: Yes History of Present Illness Reason for Consultation: DESIREE in renal transplant Requesting Physician: Dr Phillip Attending Physician: Osmin Bonilla MD History of Present Illness 49 y/o F living related renal transplant recipient whom I'm asked to see for acute renal failure after she was admitted yesterday with creatinine 9.5; sent by PCP for uncontrolled N/V and lightheadedness since approximately 01/16 > noted to have SBP in 70-80s at PCP yesterday. She had been on bactrim since 01/15 for pansensitive E coli UTI. despite poor intake and n/vomiting for several days missed only one immunosuppression dose for transplant. 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 GI been consulted to evaluate elevated lipase and MRCP planned tomorrow since 2017 EUS concerning for possible PD stones (though none on MRCP at that time). Follows w/ Dr David in CKD clinic > baseline creatinine as of last month 1.4. On admission, clonidine and amlodipine held (labetalol continued w/ hold parameters); pt started on 03/13 NS w/ 75 mEq/L sodium bicarb; OP salt tabs continued for sNa 126 at presentation. at time of my eval of her this am at 0830, she still felt pretty nauseous; tolerating minimal liquid diet. Allergies Allergy/AdvReac Type Severity Reaction Status Date / Time hydralazine Allergy Severe Hives Verified 01/21/20 22:09 morphine Allergy Severe Hives Verified 01/21/20 22:09 nitroglycerin AdvReac Severe Migraine Verified 01/21/20 22:09 valacyclovir AdvReac Severe Vomiting Verified 01/21/20 22:09 Home Medications Home Medications Medication Instructions Recorded Confirmed Type [place] 3-6-9 Fatty Acids 1 cap PO DAILY 03/13/18 01/21/20 History ascorbic acid (vitamin C) 1,000 mg PO BID 03/13/18 01/21/20 History biotin 10,000 mcg PO QAM 03/13/18 01/21/20 History cetirizine 10 mg PO QAM 03/13/18 01/21/20 History folic acid 1 mg PO QAM 03/13/18 01/21/20 History lorazepam 1 mg PO Q8 PRN 03/13/18 01/21/20 History multivitamin 1 tab PO QAM 03/13/18 01/21/20 History prednisone 2.5 mg PO QAM 03/13/18 01/21/20 History montelukast 10 mg PO QPM 10/24/18 01/21/20 History aspirin 81 mg tablet,delayed 81 mg PO QAM 01/08/19 01/21/20 History release buspirone 5 mg tablet 5 mg PO TID tab 01/08/19 01/21/20 History cimetidine 400 mg tablet 400 mg PO BID 01/08/19 01/21/20 History fluticasone propionate 50 2 spray INTRANASAL HS gm 01/08/19 01/21/20 History mcg/actuation nasal spray,suspension melatonin 5 mg capsule 10 - 15 mg PO HS cap 01/08/19 01/21/20 History pantoprazole 40 mg tablet,delayed 40 mg PO BID tab 01/08/19 01/21/20 History release rizatriptan 10 mg tablet 10 mg PO Q2H PRN #36 tab MDD 20 mg 01/08/19 01/21/20 Rx rosuvastatin 5 mg tablet 5 mg PO QPM tab 01/08/19 01/21/20 History sodium chloride 1 gram tablet 500 mg PO BID tab 01/08/19 01/21/20 History zolpidem 10 mg tablet 5 - 10 mg PO HS tab 01/08/19 01/21/20 History tramadol 100 mg PO TID 03/09/19 01/21/20 History allopurinol 200 mg PO QAM 04/01/19 01/21/20 History Probiotic Blend 1 cap PO HS 10/17/19 01/21/20 History labetalol 300 mg PO QID 10/17/19 01/21/20 History clonidine HCl 0.1 mg tablet 0.1 mg PO QID tab 12/12/19 01/21/20 History fremanezumab-vfrm 225 mg/1.5 mL 225 mg SUBCUT MONTHLY 30 Days #1.5 12/22/19 01/21/20 Rx subcutaneous syringe ml amlodipine 2.5 mg PO DAILY 01/21/20 01/21/20 History calcium carbonate-vitamin D3 1 tab PO DAILY 01/21/20 01/21/20 History [Calcium + D] cyclosporine modified 150 mg PO BID 01/21/20 01/21/20 History diphenhydramine HCl [Benadryl] 25 mg PO Q6 PRN 01/21/20 01/21/20 History ibrutinib [Imbruvica] 280 mg PO QPM 01/21/20 01/21/20 History lactobacillus combination no.4 0 mmu cells PO DAILY 01/21/20 01/21/20 History [Probiotic] magnesium chloride 64 mg PO DAILY 01/21/20 01/21/20 History mirtazapine 45 mg PO HS 01/21/20 01/21/20 History ondansetron HCl [Zofran] 4 mg PO Q8 PRN 01/21/20 01/21/20 History oxycodone [Roxicodone] 5 mg PO Q6 PRN 01/21/20 01/21/20 History polyethylene glycol 3350 [Miralax] 17 g PO DAILY 01/21/20 01/21/20 History promethazine 25 mg PO Q6 PRN 01/21/20 01/21/20 History sennosides [senna] 8.6 mg PO DAILY 01/21/20 01/21/20 History sulfamethoxazole-trimethoprim 1 tab PO BID 01/21/20 01/21/20 History tizanidine [Zanaflex] 4 mg PO Q6 PRN 01/21/20 01/21/20 History Patient History Medical History Anxiety Aortic regurgitation "s/p bioprosthetic AVR" Autoimmune hemolytic anemia B-cell lymphoma diagnosed 03/2019--chemo Carcinoma in situ removed in office Cervicalgia Chronic back pain Chronic pancreatitis CKD (chronic kidney disease), stage III Depression Dyslipidemia ESBL (extended spectrum beta-lactamase) producing bacteria infection Essential hypertension Gastroparesis GERD (gastroesophageal reflux disease) History of DVT (deep vein thrombosis) History of herpes zoster 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" History of pericarditis History of renal calculi Hypertension Hypertensive heart disease Hyponatremia Leukopenia Macular degeneration Marginal zone lymphoma Migraine headache Nausea and vomiting after administration of anesthetic agent Neurofibromatosis Pancreatic cyst Recurrent UTI Renal transplant recipient Ulcerative colitis Surgical History Cardiac pacemaker in situ meditronic @ [facility] [place] [place] 01/26/2017 H/O prior ablation treatment percutaneous peripheral nerve / C5-C6 ablation History of biopsy renal History of cardiac cath 2017 prior to AVR--no stent History of chest tube placement History of colonoscopy History of cystoscopy History of esophagogastroduodenoscopy (EGD) History of lithotripsy History of tonsillectomy and adenoidectomy History of tooth extraction History of wisdom tooth extraction Status post aortic valve replacement with bioprosthetic valve @ [facility] [place] 01/23/2017--follows with Dr. Rizo Status post -donor kidney transplantation 12/1984--removed 01/1990 Status post living-donor kidney transplantation in 06/1990 Family History Grandmother (Maternal) Coronary heart disease Family history of diabetes mellitus Grandfather (Paternal) Coronary heart disease Mother Kidney donor Other No family history of adverse response to anesthesia No family history of kidney disease Social History Smoking Status: Former smoker Tobacco Type: Cigarettes Second Hand Exposure: No; Do You Dip or Chew Tobacco: No; Tobacco Cessation Education Requested by Patient: No Hx Alcohol Use: No Hx Substance Use: No Preferred Language: Croatian Communication Ability: Effective Home Mission Worker Required: No Beliefs That Will Affect Care: None marital status: Current Living Situation: Spouse Current Living Situation Comment: Other Information That Helps Us Care for You: No Feels Safe at Home: Yes Safety Concerns: Feels Safe At This Time Assistive Devices: Glasses Review of Systems Review of Systems: All systems reviewed & are unremarkable except as noted in HPI & below Constitutional: + anorexia; no fever and no weakness Respiratory: no cough and no dyspnea Gastrointestinal: as per Subjective / HPI, + abdominal pain, + bloating, + nausea, + vomiting and + constipation; no excessive flatulence Genitourinary: + decreased urination Musculoskeletal: + joint pain (stable / chronic); no swelling, no stiffness, no myalgia and no body aches Neurologic: no unsteadiness, no falls and no abnormal movements Physical Exam Constitutional: well developed and well nourished; no acute distress Eyes: EOM intact bilaterally ENMT: Ears: no external ear abnormality Nose: no external nose abnormality Mouth: + dry oral mucous membranes Neck: no nuchal rigidity Respiratory: normal respiratory effort Auscultation: lungs clear to auscultation bilaterally and + diminished lung sounds Cardiovascular: Rate/Rhythm: regular rate and regular rhythm Heart Sounds: + murmur Extremities: no edema Gastrointestinal (Abdomen): Inspection/Auscultation: + abnormal bowel sounds (diminished) Percussion/Palpation: + abdomen tender (including RLQ over allograft) and abdomen soft; abdomen not rigid and no ascites Musculoskeletal: Extremities: strength 5/5 throughout Skin: no rashes, warm and dry Neurologic: [place], fluent speech, no tremor Psychiatric: A+Ox3, euthymic affect Insight: good insight Judgement: good judgement Genitourinary: no foiley Results & Data ([facility]) Vital Signs (Past 12 Hours) Vital Signs Temp Pulse Pulse Resp BP BP Pulse Ox 01/22/20 07:56 36.5 C 72 18 134/69 96 01/21/20 23:53 36.3 C L 67 18 126/81 97 01/21/20 22:48 72 20 126/77 96 01/21/20 22:45 67 21 93 01/21/20 22:30 68 15 98 01/21/20 22:18 74 17 94 01/21/20 22:00 68 21 96 01/21/20 21:45 67 13 93 01/21/20 21:30 69 21 94 01/21/20 21:15 70 18 97 01/21/20 21:00 69 24 100 01/21/20 20:45 75 17 93 01/21/20 20:30 69 19 111/78 95 Laboratory Results 01/22/20 05:23 01/22/20 05:[address] abd/pelvis no con FINDINGS: Lung bases are unremarkable. Pacer leads are partially imaged. There is a prosthetic cardiac valve which is partially imaged. No pneumatosis, free air or portal venous gas is present. A 3.7 cm right hepatic lobe cyst is unchanged. There is a suspected cyst within the [place] left kidney. Marked atrophy of both [place] kidneys is noted. Mild splenomegaly is noted. This is decreased since prior exam. Unenhanced images of the adrenal glands are unremarkable. Pancreatic parenchymal calcifications are again noted. Numerous cystic pancreatic lesions appear similar to prior exams. The pancreas is suboptimally assessed on this unenhanced examination. No peripancreatic infiltration is noted. There is a moderate amount of stool within the right colon. There is no evidence for a bowel obstruction. Note is made of a right lower quadrant renal allograft. There is mild graft hydronephrosis which has been shown on prior exams. There is infiltration adjacent to the graft. There is suspected wall thickening of the right collecting system and right ureter. Ureteral calculus is identified. No lymphadenopathy is present. No perigraft fluid collections are present. No suspicious osseous lesions are noted. The appendix is normal. IMPRESSION: 1. Infiltration adjacent to the right lower quadrant renal allograft with urothelial thickening. This infiltration is nonspecific and could be correlated with urinalysis to exclude an infectious process. Mild graft collecting system dilatation, similar to prior exams. 2. No evidence for a bowel obstruction. Moderate amount of stool within the right colon. 3. Pancreatic calcifications consistent with chronic pancreatitis. No significant change in numerous cystic pancreatic lesions, suboptimally assessed on this exam. No change in appearance of the pancreas. 4. Mild splenomegaly, decreased since prior exam.
[2020-01-22] MEDS: traMADol HCL 50 MG TABLET PO SCH ×3 (08:39→20:09)
[2020-01-22] MEDS: SENNA 8.6 MG TAB PO SCH (08:42)
[2020-01-22] MEDS ORDERED: cycloSPORINE 100 MG CAP PO SCH (09:00)
[2020-01-22] MEDS ORDERED: MAGNESIUM CHLORIDE 64MG DELAYED REL TAB PO SCH (09:00)
[2020-01-22] MEDS ORDERED: SODIUM CHLORIDE 1 GM TABLET PO SCH (09:00)
--- NOTE | 2020-01-22 10:43 | Electrocardiogram Report ---
Test Reason : Blood Pressure : / mmHG Vent. Rate : 065 BPM Atrial Rate : 065 BPM P-R Int : 204 ms QRS Dur : 204 ms QT Int : 520 ms P-R-T Axes : 058 085 016 degrees QTc Int : 540 ms Atrial-sensed ventricular-paced rhythm Abnormal ECG When compared with ECG of 09-MAR-2019 14:03, Vent. rate has increased BY 4 BPM Confirmed by Ortiz Garcia ([id number]) on 01/22/2020 10:43:05 AM Referred By: REFERRED SELF Confirmed By:Ortiz Garcia
--- NOTE | 2020-01-22 10:45 | Gastrointestinal Consultation ---
Date of Consultation January 22, 2020 Assessment & Plan (1) Acute UTI: (2) DESIREE (acute kidney injury): (3) Acute pancreatitis: Pt is a 49 y/o female s/p renal transplant for hx of MPGN, currently admitted w Ecoli UTI and DESIREE 2/2 dehydration. GI following for elevated lipase. Hx of chronic pancreatitis, ? divisum seen on previous EUS. PD was dilated w possible stones seen in EUS but MRCP ruled this out back in 2018. She has several pancreatic cystic lesions, stable appearing. - Obtain MRCP, if any indication of biliary/pancreatic ductal obstruction will plan for ERCP - IVF hydration - CL diet for now - Symptomatic management - Defer UTI / DESIREE management to primary team and Nephrology - Miralax + Dulcolax for constipation Attg add: I interviewed and examined pt, reviewed chart and labs. Pt with complicated med history, prior h/o ? chronic panc and divisum, now with lipase elevation, PD dilation. Now admit with n/v, increase creat, uremia. DDX = hyperlipasemia secondary to vomiting/DESIREE; acute on chronic panc. Will request MRCP, cont hydration. History of Present Illness Reason for Consultation: Elevated Lipase Requesting Physician: Dr. Osmin Bonilla Attending Physician: Dr. Dandre Marroquin History of Present Illness Pt is a 49 yo female w PMHx MPGN s/p renal transplant on Cyclosporine immunosuppresion, B cell lymphoma, hemolytic anemia, gastroparesis, Ulcerative colitis who has Ecoli UTI currently admitted w n/v, dehydration, DESIREE. She is having associated generalized abd pain, bloating, constipation. Labs reviewed: WBC 8, H/H 11/32, Plt 196. BUN/Cr 114/8, Na 130. LFTs: Tbili 1.1, AST 12, ALT 15, AP 72. Lipase up [address] abd/pelvis showed infiltration adjacent to the right lower quadrant renal allograft with urothelial thickening and mild graft collecting system dilatation, similar to prior exams. No evidence for a bowel obstruction. Moderate amount of stool within the right colon. Pancreatic calcification consistent w chronic pancreatitis. + cystic lesions suboptimally assessed. Mild splenomegaly. She had prior EUS and MRI/MRCP in 2018 for chronic pancreatitis. PD was dilated around 6mm ? irregularities which suggest possible stones but MRCP showed no signs of this. High probability of divisum Denies ETOH, tobacco, new meds Allergies Allergy/AdvReac Type Severity Reaction Status Date / Time hydralazine Allergy Severe Hives Verified 01/21/20 22:09 morphine Allergy Severe Hives Verified 01/21/20 22:09 nitroglycerin AdvReac Severe Migraine Verified 01/21/20 22:09 valacyclovir AdvReac Severe Vomiting Verified 01/21/20 22:09 Home Medications Home Medications Medication Instructions Recorded Confirmed Type [place] 3-6-9 Fatty Acids 1 cap PO DAILY 03/13/18 01/21/20 History ascorbic acid (vitamin C) 1,000 mg PO BID 03/13/18 01/21/20 History biotin 10,000 mcg PO QAM 03/13/18 01/21/20 History cetirizine 10 mg PO QAM 03/13/18 01/21/20 History folic acid 1 mg PO QAM 03/13/18 01/21/20 History lorazepam 1 mg PO Q8 PRN 03/13/18 01/21/20 History multivitamin 1 tab PO QAM 03/13/18 01/21/20 History prednisone 2.5 mg PO QAM 03/13/18 01/21/20 History montelukast 10 mg PO QPM 10/24/18 01/21/20 History aspirin 81 mg tablet,delayed 81 mg PO QAM 01/08/19 01/21/20 History release buspirone 5 mg tablet 5 mg PO TID tab 01/08/19 01/21/20 History cimetidine 400 mg tablet 400 mg PO BID 01/08/19 01/21/20 History fluticasone propionate 50 2 spray INTRANASAL HS gm 01/08/19 01/21/20 History mcg/actuation nasal spray,suspension melatonin 5 mg capsule 10 - 15 mg PO HS cap 01/08/19 01/21/20 History pantoprazole 40 mg tablet,delayed 40 mg PO BID tab 01/08/19 01/21/20 History release rizatriptan 10 mg tablet 10 mg PO Q2H PRN #36 tab MDD 20 mg 01/08/19 01/21/20 Rx rosuvastatin 5 mg tablet 5 mg PO QPM tab 01/08/19 01/21/20 History sodium chloride 1 gram tablet 500 mg PO BID tab 01/08/19 01/21/20 History zolpidem 10 mg tablet 5 - 10 mg PO HS tab 01/08/19 01/21/20 History tramadol 100 mg PO TID 03/09/19 01/21/20 History allopurinol 200 mg PO QAM 04/01/19 01/21/20 History Probiotic Blend 1 cap PO HS 10/17/19 01/21/20 History labetalol 300 mg PO QID 10/17/19 01/21/20 History clonidine HCl 0.1 mg tablet 0.1 mg PO QID tab 12/12/19 01/21/20 History fremanezumab-vfrm 225 mg/1.5 mL 225 mg SUBCUT MONTHLY 30 Days #1.5 12/22/19 01/21/20 Rx subcutaneous syringe ml amlodipine 2.5 mg PO DAILY 01/21/20 01/21/20 History calcium carbonate-vitamin D3 1 tab PO DAILY 01/21/20 01/21/20 History [Calcium + D] cyclosporine modified 150 mg PO BID 01/21/20 01/21/20 History diphenhydramine HCl [Benadryl] 25 mg PO Q6 PRN 01/21/20 01/21/20 History ibrutinib [Imbruvica] 280 mg PO QPM 01/21/20 01/21/20 History lactobacillus combination no.4 0 mmu cells PO DAILY 01/21/20 01/21/20 History [Probiotic] magnesium chloride 64 mg PO DAILY 01/21/20 01/21/20 History mirtazapine 45 mg PO HS 01/21/20 01/21/20 History ondansetron HCl [Zofran] 4 mg PO Q8 PRN 01/21/20 01/21/20 History oxycodone [Roxicodone] 5 mg PO Q6 PRN 01/21/20 01/21/20 History polyethylene glycol 3350 [Miralax] 17 g PO DAILY 01/21/20 01/21/20 History promethazine 25 mg PO Q6 PRN 01/21/20 01/21/20 History sennosides [senna] 8.6 mg PO DAILY 01/21/20 01/21/20 History sulfamethoxazole-trimethoprim 1 tab PO BID 01/21/20 01/21/20 History tizanidine [Zanaflex] 4 mg PO Q6 PRN 01/21/20 01/21/20 History Patient History Medical History Anxiety Aortic regurgitation "s/p bioprosthetic AVR" Autoimmune hemolytic anemia B-cell lymphoma diagnosed 03/2019--chemo Carcinoma in situ removed in office Cervicalgia Chronic back pain Chronic pancreatitis CKD (chronic kidney disease), stage III Depression Dyslipidemia ESBL (extended spectrum beta-lactamase) producing bacteria infection Essential hypertension Gastroparesis GERD (gastroesophageal reflux disease) History of DVT (deep vein thrombosis) History of herpes zoster 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" History of pericarditis History of renal calculi Hypertension Hypertensive heart disease Hyponatremia Leukopenia Macular degeneration Marginal zone lymphoma Migraine headache Nausea and vomiting after administration of anesthetic agent Neurofibromatosis Pancreatic cyst Renal transplant recipient Ulcerative colitis Surgical History Cardiac pacemaker in situ meditronic @ [facility] [place] 01/26/2017 History of biopsy renal History of cardiac cath 2016 prior to AVR--no stent History of chest tube placement History of colonoscopy History of cystoscopy History of esophagogastroduodenoscopy (EGD) History of lithotripsy History of tonsillectomy and adenoidectomy History of tooth extraction History of wisdom tooth extraction Status post aortic valve replacement with bioprosthetic valve @ [facility] [place] 01/23/2017--follows with Dr. Rizo Status post -donor kidney transplantation 12/1984--removed 01/1990 Status post living-donor kidney transplantation in 06/1990 Family History Grandmother (Maternal) Coronary heart disease Family history of diabetes mellitus Grandfather (Paternal) Coronary heart disease Mother Kidney donor Other No family history of adverse response to anesthesia No family history of kidney disease Social History Smoking Status: Former smoker Tobacco Type: Cigarettes Second Hand Exposure: No; Do You Dip or Chew Tobacco: No; Tobacco Cessation Education Requested by Patient: No Hx Alcohol Use: No Hx Substance Use: No Preferred Language: Portuguese Communication Ability: Effective Printed [employer] Panels Deburrer Required: No Beliefs That Will Affect Care: None marital status: Current Living Situation: Spouse Current Living Situation Comment: Other Information That Helps Us Care for You: No Feels Safe at Home: Yes Safety Concerns: Feels Safe At This Time Assistive Devices: Glasses Review of Systems Review of Systems: All systems reviewed & are unremarkable except as noted in HPI & below Physical Exam Constitutional: WD/WN, vitals as above well groomed, cooperative and comfortable Eyes: PERRL, conjunctivae normal, anicteric sclerae ENMT: external ear and nose normal, oropharynx normal Respiratory: normal respiratory effort, lungs clear to auscultation Cardiovascular: RRR, no murmur, no edema Gastrointestinal (Abdomen): Inspection/Auscultation: + abdomen distended and normal bowel sounds Percussion/Palpation: + abdomen tender (generalized) Skin: no rashes, warm and dry no jaundice Neurologic: Motor/Sensory: no asterixis Psychiatric: A+Ox3, euthymic affect Lymphatic: no lymphedema Results & Data ([facility]) Vital Signs (Past 12 Hours) Vital Signs Temp Pulse Pulse Resp BP BP Pulse Ox 01/22/20 07:56 36.5 C 72 18 134/69 96 01/21/20 23:53 36.3 C L 67 18 126/81 97 01/21/20 22:48 72 20 126/77 96 01/21/20 22:45 67 21 93 (1) Acute pancreatitis Acute pancreatitis complication: unspecified Pancreatitis type: unspecified pancreatitis type Qualified Code(s): K85.90 - Acute pancreatitis without necrosis or infection, unspecified
--- NOTE | 2020-01-22 13:08 | Hospitalist Progress Note ---
Date of Service January 22, 2020 Assessment & Plan (1) DESIREE (acute kidney injury): -patient presented to ED on [place] 01/21/2020 -as per admission History and Physical "This 49-year-old female with past medical history significant for history of renal transplant in early 90s, hemolytic anemia, chronic leukopenia, thrombocytopenia, history of recurrent UTIs, history of hypertension, history of complete heart block status post pacemaker, pancreatic cyst, hyperlipidemia, non-rheumatic aortic valve insufficiency, status post aortic valve replacement, history of right leg deep venous thrombosis, history of ulcerative colitis, history of nephritis and nephropathy with pathological lesion in kidney, chronic kidney disease, neurofibromatosis, migraines, macular degeneration, chronic pain syndrome, marginal zone lymphoma, cold agglutinin disease, history of aortic root repair. The patient lives with her . The patient was having nausea, vomiting and dizziness since last Sunday, she was diagnosed with UTI and she was prescribed Bactrim for pansensitive E. coli, but since last Sunday, she is not eating and drinking anything because she has a lot of nausea and abdominal discomfort and not moved her bowels because of not eating anything. Denies any fever, chills. Blood pr essure was low, systolic in 70s, 80s in her family doctor's office today and she in spite holding her home medication, amlodipine and clonidine, she was taking labetalol. She was still vomiting, lightheadedness and standing becoming difficult, so the family physician advised to the ER. Here, she was found to have sodium of 126, potassium of 5, creatinine of 9.4, BUN of 119, CO2 17, anion gap of 16. Baseline creatinine around 1.1-1.2. Lactate was 0.2. Urinalysis, trace leukocyte esterase. COVID-19 PCR was negative in the ER. Lipase was elevated at 2000. CAT showing chronic pancreatitis findings and also CT of the abdomen and pelvis also showing some infiltration adjacent to the renal allograft with urothelial thickening, possible infectious process. Chest x-ray was okay. ER talked to Nephrology and recommended to start on half normal saline with bicarbonate drip. The patient wants to stay here today, does not want to transfer to [facility]. She says she is feeling fine, she does not think she needs to be transferred, afebrile. Denies any cough, no chest pain. She has her usual short of breath on exertion. Has some headache, no earache, has cough with postnasal drip. Constipated. Denies any blood in stools or denies any hematuria. No swelling in the legs, no rash. -1/2 NS w/ 75 mEq/L sodium bicarb at 100 mL/hr and following the renal function -follow any further nephrology recommendations (2) Metabolic acidosis, increased anion gap: -IV fluids as above and trend the labs (3) Hyponatremia: -serum sodium 126 on 01/21/2020 presentation -her outpatient dose of sodium chloride tablets 500 mg BID are being held at this time to prevent GI upset and while monitoring the serum sodium with the IV fluids Hypertension -admitting physician initially holding home dose amlodipine, clonidine, because of initial concerns for hypotensive -adjust blood pressure medications as needed (4) UTI (urinary tract infection): -History of recent urinary tract infection with Bactrim -UA without bacteria on admission -patient has been giving ceftriaxone on admission, continue for now as it is unclear whether perinephric stranding on imaging is from infectious causes (5) History of renal transplant: -has right lower quadrant renal allograft. -admission CT scan of abdomen: "There is mild graft hydronephrosis which has been shown on prior exams. There is infiltration adjacent to the graft. There is suspected wall thickening of the right collecting system and right ureter" -there was initial typo in the CT abdomen report on 01/21/2020. Dr. Coburn the radiologist was called by hospitalist who initially asked urology Dr. Campa to look at the imaging - Dr. Coburn reports that there is no ureteral calculus -home dose cyclosporine 150 mg BID has been reduced to 50 mg BID to account for the elevated creatinine and current renal function -continue home dose prednisone 2.5 mg daily Elevated Lipase Chronic Pancreatitis -admission CT scan of abdomen: "Pancreatic calcifications consistent with chronic pancreatitis. No significant change in numerous cystic pancreatic lesions, suboptimally assessed on this exam. No change in appearance of the pancreas." -elevated lipase on presentation -MRCP completed on 01/22/2020 1. No gallstones identified 2. No evidence of intra or extrahepatic biliary ductal dilatation. The common bile duct is the upper limits of normal in size measuring 6 mm 3. No ductal calculi identified 4. Mild ectasia of the proximal pancreatic duct which measures up to 4.3 mm in diameter 5. Innumerable pancreatic cysts 6. Atrophic [place] kidneys with upper pole left renal cysts 7. Right lower quadrant transplant kidney with perinephric stranding. Clinical correlation to exclude infection is recommended 8. Mild splenomegaly (6) Marginal zone lymphoma: -patient follows with [facility] oncology Dr. Chad Clemons and has been on Ibrutinib (Imbruvica) 280 mg daily -Ibrutinib is being held at this time while assessing the renal function Hyperlipidemia - on statin Gastroesophageal reflux disease -on Protonix and famotidine. Asthma -Continue Singulair. History of hemolytic anemia, cold agglutinin disease -Hemoglobin stable Presence of Pacemaker -Other cardiac history: History of complete heart block with pacemaker, history of aortic root repair, history of non-rheumatic aortic valve insufficiency, status post aortic valve replacement -holding home dose aspirin 81 mg daily for now -being monitored on telemetry Deep venous thrombosis prophylaxis, sequential compression devices. Admission and Anticipated Discharge Date Admission Date: January 21, 2020 Subjective Patient seen and examined at the bedside. IV fluids running. No vomiting today. breathing on room air. no shortness of breath. no chest pain. no acute abdomen pain on palpation of abdomen. patient reports she has been able to urinate. she denies diarrhea. she does not report other symptoms on review of systesm today Review of Systems Review of Systems: All systems reviewed & are unremarkable except as noted in Subjective Physical Exam Constitutional: cooperative Eyes: PERRL, conjunctivae normal, anicteric sclerae EOM intact bilaterally ENMT: external ear and nose normal, oropharynx normal Neck: normal visual inspection Respiratory: normal respiratory effort, lungs clear to auscultation Cardiovascular: Rate/Rhythm: regular rate (paced) Gastrointestinal (Abdomen): Percussion/Palpation: abdomen soft old scars of abdomen. no rebound tenderness of guarding Neurologic: PERRL, EOMI, accommodation nl, no face palsy, no dysarthria moves all extremities Psychiatric: A+Ox3, euthymic affect Results & Data Results & Data ([facility]) Vital Signs (Past 12 Hours) Vital Signs Temp Pulse Resp BP Pulse Ox 01/22/20 07:56 36.5 C 72 18 134/69 96
--- NOTE | 2020-01-22 13:59 | Magnetic Resonance Report ---
MR MRCP CLINICAL HISTORY: Pancreatitis, nausea, vomiting, bloating. COMPARISON STUDY: CT scan dated 01/21/2020 FINDINGS: A breath-hold MRCP was performed. MIP images were acquired. The spleen is enlarged measuring 13.5 cm. There is a 36 mm right lobe hepatic cyst. The [place] kidneys appear atrophic. There are upper pole left renal cysts. There is a right lower quadrant transplant kidney with perinephric stranding. There are innumerable cystic pancreatic lesions measuring up to 16 mm in diameter. These are minimall y increased in size from prior studies. No gallstones are visualized. There is no evidence for intra or extrahepatic biliary ductal dilatation. No ductal calculi are visualized. There is mild ectasia of the proximal pancreatic duct. IMPRESSION: 1. No gallstones identified 2. No evidence of intra or extrahepatic biliary ductal dilatation. The common bile duct is the upper limits of normal in size measuring 6 mm 3. No ductal calculi identified 4. Mild ectasia of the proximal pancreatic duct which measures up to 4.3 mm in diameter 5. Innumerable pancreatic cysts 6. Atrophic [place] kidneys with upper pole left renal cysts 7. Right lower quadrant transplant kidney with perinephric stranding. Clinical correlation to exclude infection is recommended 8. Mild splenomegaly ACT 112: Negative or not required by law. Electronically signed by: Skyler Vidales M.D. 01/22/2020 1:57 PM
[2020-01-22 14:35] LABS: Albumin Globulin Ratio 0.8 (0.9-2); Albumin Level 2.8 gm/dl (3.4-5.0); BUN Creatinine Ratio 13.9 (10-20); Bilirubin,Total 1.1 mg/dl (0.2-1); Calcium 9.5 mg/dl (8.5-10.1); Creatinine Clr Calc Pharmacy 8.1 ml/min; Est GFR (African American) 6.4; Est GFR (Non-African American) 5.5; Globulin 3.7 gm/dl (2.5-4.0); Potassium 4.3 mmol/L (3.5-5.1); Total Protein 6.5 gm/dl (6.4-8.2)
[2020-01-22] MEDS: ROSUVASTATIN CALCIUM 5 MG TAB PO SCH (20:03)
[2020-01-22] MEDS: FLUTICASONE PROPIONATE NA SPR 16 GM BTL SCH (20:04)
[2020-01-22] MEDS: MIRTAZAPINE SOLTAB 15 MG PO SCH (20:04)
[2020-01-22] MEDS: MONTELUKAST SODIUM 10 MG TABLET PO SCH (20:04)
[2020-01-22] MEDS: cefTRIAXone SODIUM 1,000 MG in DEXTROSE 5% 50 ML IV SCH (20:05)
[2020-01-22] MEDS: ZOLPIDEM TARTRATE 10 MG TAB PO SCH (20:08)
[2020-01-22] MEDS ORDERED: [UNRECOGNIZED DRUG - OTHER] PO SCH (21:00)
[2020-01-23] MEDS: SODIUM BICARBONATE 8.4% 75 MEQ in SODIUM CHLORIDE 0.45 % 1,000 ML IV SCH ×2 (04:09→14:05)
[2020-01-23] MEDS: oxyCODONE HCL IR 5 MG TAB (IMMEDIATE RELEASE) PO PRN ×3 (04:36→22:16)
[2020-01-23 07:06] LABS: Basophils # (auto) 0.03 K/uL (0-0.2); Basophils % (auto) 0.3 %; Eosinophils # (auto) 0.24 K/uL (0-0.5); Eosinophils % (auto) 2.6 %; Hematocrit (blood only) 33.1 % (37-47); Hemoglobin 11.1 g/dL (12.0-16.0); Immature Granulocytes % (auto) 2.2 %; Lymphocytes # (auto) 2.36 K/uL (1.2-3.4); Mean Corpuscular Hemoglobin 28.2 pg (25-34); Mean Corpuscular Hgb Conc 33.5 g/dL (32-36); Mean Corpuscular Volume 84.2 fL (80-100); Mean Platelet Volume 11.9 fL (7.4-10.4); Monocytes # (auto) 1.18 K/uL (0.11-0.59); Neutrophils # (auto) 5.07 K/uL (1.4-6.5); Neutrophils % (auto) 55.9 %; Platelet Count 231 K/uL (130-400); RDW Coefficient of Variation 14.1 % (11.5-14.5); RDW Standard Deviation 44.1 fL (36.4-46.3); Red Blood Count 3.93 M/uL (4.2-5.4); White Blood Count 9.08 K/uL (4.8-10.8)
[2020-01-23 07:44] LABS: Albumin Globulin Ratio 0.7 (0.9-2); Albumin Level 2.6 gm/dl (3.4-5.0); BUN Creatinine Ratio 13.9 (10-20); Bilirubin,Total 0.9 mg/dl (0.2-1); Calcium 9.2 mg/dl (8.5-10.1); Est GFR (African American) 7.6; Est GFR (Non-African American) 6.6; Globulin 3.7 gm/dl (2.5-4.0); Potassium 3.8 mmol/L (3.5-5.1); Total Protein 6.3 gm/dl (6.4-8.2)
--- NOTE | 2020-01-23 07:57 | Hospitalist Progress Note ---
Date of Service January 23, 2020 Assessment & Plan (1) DESIREE (acute kidney injury): -patient presented to ED on Thus01/21/2020 -as per admission History and Physical "This 49-year-old female with past medical history significant for history of renal transplant in early 90s, hemolytic anemia, chronic leukopenia, thrombocytopenia, history of recurrent UTIs, history of hypertension, history of complete heart block status post pacemaker, pancreatic cyst, hyperlipidemia, non-rheumatic aortic valve insufficiency, status post aortic valve replacement, history of right leg deep venous thrombosis, history of ulcerative colitis, history of nephritis and nephropathy with pathological lesion in kidney, chronic kidney disease, neurofibromatosis, migraines, macular degeneration, chronic pain syndrome, marginal zone lymphoma, cold agglutinin disease, history of aortic root repair. The patient lives with her . The patient was having nausea, vomiting and dizziness since last Sunday, she was diagnosed with UTI and she was prescribed Bactrim for pansensitive E. coli, but since last Sunday, she is not eating and drinking anything because she has a lot of nausea and abdominal discomfort and not moved her bowels because of not eating anything. Denies any fever, chills. Blood pr essure was low, systolic in 70s, 80s in her family doctor's office today and she in spite holding her home medication, amlodipine and clonidine, she was taking labetalol. She was still vomiting, lightheadedness and standing becoming difficult, so the family physician advised to the ER. Here, she was found to have sodium of 126, potassium of 5, creatinine of 9.4, BUN of 119, CO2 17, anion gap of 16. Baseline creatinine around 1.1-1.2. Lactate was 0.2. Urinalysis, trace leukocyte esterase. COVID-19 PCR was negative in the ER. Lipase was elevated at 2000. CAT showing chronic pancreatitis findings and also CT of the abdomen and pelvis also showing some infiltration adjacent to the renal allograft with urothelial thickening, possible infectious process. Chest x-ray was okay. ER talked to Nephrology and recommended to start on half normal saline with bicarbonate drip. The patient wants to stay here today, does not want to transfer to [facility]. She says she is feeling fine, she does not think she needs to be transferred, afebrile. Denies any cough, no chest pain. She has her usual short of breath on exertion. Has some headache, no earache, has cough with postnasal drip. Constipated. Denies any blood in stools or denies any hematuria. No swelling in the legs, no rash. -1/2 NS w/ 75 mEq/L sodium bicarb at 100 mL/hr and following the renal function. creatinine downtrending to 6.77 by 01/23/2020 AM labs -follow any further nephrology recommendations (2) Metabolic acidosis, increased anion gap: -IV fluids as above and trend the labs -as of 01/23/2020 labs, anion gap remains, but metabolic acidosis appears to have improved (3) Hyponatremia: -serum sodium 126 on 01/21/2020 presentation -her outpatient dose of sodium chloride tablets 500 mg BID are being held at this time to prevent GI upset and while monitoring the serum sodium with the IV fluids -serum sodium 135 on 01/23/2020 A< labs Hypertension -admitting physician initially holding home dose amlodipine, clonidine, because of initial concerns for hypotensive -adjust blood pressure medications as needed (4) UTI (urinary tract infection): -History of recent urinary tract infection with Bactrim -UA without bacteria on admission -patient has been giving ceftriaxone on admission, continue for now as it is unclear whether perinephric stranding on imaging is from infectious causes (5) History of renal transplant: -has right lower quadrant renal allograft. -admission CT scan of abdomen: "There is mild graft hydronephrosis which has been shown on prior exams. There is infiltration adjacent to the graft. There is suspected wall thickening of the right collecting system and right ureter" -there was initial typo in the CT abdomen report on 01/21/2020. Dr. Coburn the radiologist was called by hospitalist who initially asked urology Dr. Campa to look at the imaging - Dr. Coburn reports that there is no ureteral calculus -home dose cyclosporine 150 mg BID has been reduced to 50 mg BID to account for the elevated creatinine and current renal function -continue home dose prednisone 2.5 mg daily Elevated Lipase Chronic Pancreatitis -admission CT scan of abdomen: "Pancreatic calcifications consistent with chronic pancreatitis. No significant change in numerous cystic pancreatic lesions, suboptimally assessed on this exam. No change in appearance of the pancreas." -elevated lipase on presentation -MRCP completed on 01/22/2020 1. No gallstones identified 2. No evidence of intra or extrahepatic biliary ductal dilatation. The common bile duct is the upper limits of normal in size measuring 6 mm 3. No ductal calculi identified 4. Mild ectasia of the proximal pancreatic duct which measures up to 4.3 mm in diameter 5. Innumerable pancreatic cysts 6. Atrophic [place] kidneys with upper pole left renal cysts 7. Right lower quadrant transplant kidney with perinephric stranding. Clinical correlation to exclude infection is recommended 8. Mild splenomegaly -01/23/2020: Discussed with patient in AM that Gastroenterology has plans for ERCP of the patient despite relatively unremarkable MRCP results of biliary tract. Patient aware of the plans and GI discussions. Patient feels symptomatically improved in regards to any abdominal discomfort or dizziness symptoms. She also has been able to make a bowel movement.Abdomen is soft, nontender to palpation. Patient continues to be on IV fluids with sodium bicarbonate. (6) Marginal zone lymphoma: -patient follows with [facility] oncology Dr. Chad Clemons and has been on Ibrutinib (Imbruvica) 280 mg daily -Ibrutinib is being held at this time while assessing the renal function Hyperlipidemia - on statin Gastroesophageal reflux disease -on Protonix and famotidine. Asthma -Continue Singulair. History of hemolytic anemia, cold agglutinin disease -Hemoglobin stable Presence of Pacemaker -Other cardiac history: History of complete heart block with pacemaker, history of aortic root repair, history of non-rheumatic aortic valve insufficiency, status post aortic valve replacement -holding home dose aspirin 81 mg daily for now because of possible GI procedure -being monitored on telemetry Deep venous thrombosis prophylaxis, sequential compression devices. Admission and Anticipated Discharge Date Admission Date: January 21, 2020 Subjective Discussed with patient in AM that Gastroenterology has plans for ERCP of the patient despite relatively unremarkable MRCP results of biliary tract. Patient aware of the plans and GI discussions. Patient feels symptomatically improved in regards to any abdominal discomfort or dizziness symptoms. She also has been able to make a bowel movement.Abdomen is soft, nontender to palpation. Patient continues to be on IV fluids with sodium bicarbonate. Patient on room air. No shortness of breath. no chest pain. denies other symptoms on review of systems Review of Systems Review of Systems: All systems reviewed & are unremarkable except as noted in Subjective Physical Exam Constitutional: cooperative Eyes: PERRL, conjunctivae normal, anicteric sclerae EOM intact bilaterally ENMT: external ear and nose normal, oropharynx normal Neck: normal visual inspection Respiratory: normal respiratory effort, lungs clear to auscultation Cardiovascular: Rate/Rhythm: regular rate (paced) Gastrointestinal (Abdomen): normal bowel sounds, soft, nontender, no hepatosplenomegaly Musculoskeletal: Head/Neck/Chest: normocephalic and head atraumatic Neurologic: PERRL, EOMI, accommodation nl, no face palsy, no dysarthria moves all extremities Psychiatric: A+Ox3, euthymic affect Results & Data Results & Data ([facility]) Vital Signs (Past 12 Hours) Vital Signs Temp Pulse Pulse Resp BP Pulse Ox 01/23/20 04:00 36.3 C L 79 16 134/90 97 01/22/20 23:19 36.7 C 72 16 132/80 96 01/22/20 23:06 69 01/22/20 19:57 36.3 C L 65 16 131/85 96
[2020-01-23] MEDS: POLYETHYLENE (MIRALAX) 17 GM PACK PO SCH (08:27)
[2020-01-23] MEDS: LABETALOL HCL 300 MG TAB PO SCH ×3 (08:27→17:25)
[2020-01-23] MEDS: predniSONE 2.5 MG TAB PO SCH (08:27)
[2020-01-23] MEDS: busPIRone 5 MG TAB PO SCH ×3 (08:27→20:48)
[2020-01-23] MEDS: FOLIC ACID 1 MG TAB PO SCH (08:27)
[2020-01-23] MEDS: cycloSPORINE 25 MG CAP PO SCH ×2 (08:27→14:22)
[2020-01-23] MEDS: ADVANCED PROBIOTIC 1250 MG CAPSULE PO SCH (08:28)
[2020-01-23] MEDS: traMADol HCL 50 MG TABLET PO SCH ×3 (08:28→20:56)
[2020-01-23] MEDS: PANTOprazole 40 MG TAB PO SCH ×2 (08:28→20:49)
[2020-01-23] MEDS: SENNA 8.6 MG TAB PO SCH (08:28)
[2020-01-23] MEDS: allopurinoL 100 MG TAB PO SCH (08:29)
[2020-01-23] MEDS: ASCORBIC ACID 500 MG TAB PO SCH ×2 (08:29→20:49)
[2020-01-23] MEDS: CETIRIZINE HCL 10 MG TABLET PO SCH (08:30)
[2020-01-23] MEDS ORDERED: INDOMETHACIN 50 MG SUPP PR ONE (08:42)
--- NOTE | 2020-01-23 09:25 | Gastroenterology Progress Note ---
Date of Service January 23, 2020 Assessment & Plan (1) Acute UTI: (2) DESIREE (acute kidney injury): (3) Acute pancreatitis: Pt is a 49 y/o female s/p renal transplant for hx of MPGN, currently admitted w Ecoli UTI and DESIREE 2/2 dehydration. GI following for elevated lipase. Hx of chronic pancreatitis, ? divisum seen on previous EUS. PD was dilated w possible stones seen in EUS but MRCP ruled this out back in 2018. She has several pancreatic cystic lesions, stable appearing. Repeat MRCP 01/21 w ? pancreatic ductal stone and innumerable pancreatic cyst. No intra/extrahepatic ductal dilatation. - Keep NPO for procedures today: EGD/EUS +/- ERCP if pancreas duct stone is seen in EUS. - IVF hydration - Defer UTI / DESIREE management to primary team and Nephrology - Miralax + Dulcolax or Senna for constipation Admission and Anticipated Discharge Date Admission Date: January 21, 2020 Supervising Physician Co-Signing Physician Notes I performed a history and physical examination of the patient today, including specifically on physical exam - soft abdomen. I have discussed the patient's management with the advanced practitioner. Please refer to the nurse practitioner's note for the documented findings and plan of care. Suspected PD stone on MRCP per review with Radiology today. Plan for EUS +/- ERCP Subjective Pt reports less lethargy, denies abd pain, n/v. Had BM. Had been NPO since midnight Review of Systems Review of Systems: All systems reviewed & are unremarkable except as noted in HPI & below Physical Exam Constitutional: WD/WN, vitals as above well groomed, cooperative and comfortable Eyes: PERRL, conjunctivae normal, anicteric sclerae ENMT: external ear and nose normal, oropharynx normal Respiratory: normal respiratory effort, lungs clear to auscultation Cardiovascular: RRR, no murmur, no edema Gastrointestinal (Abdomen): normal bowel sounds, soft, nontender, no hepatosplenomegaly Skin: no rashes, warm and dry no jaundice Psychiatric: A+Ox3, euthymic affect Lymphatic: no lymphedema Results & Data ([facility]) Vital Signs (Past 12 Hours) Vital Signs Temp Pulse Pulse Resp BP Pulse Ox 01/23/20 08:06 36.3 C L 82 16 138/88 96 01/23/20 04:00 36.3 C L 79 16 134/90 97 01/22/20 23:19 36.7 C 72 16 132/80 96 01/22/20 23:06 69 (1) Acute pancreatitis Acute pancreatitis complication: unspecified Pancreatitis type: unspecified pancreatitis type Qualified Code(s): K85.90 - Acute pancreatitis without necrosis or infection, unspecified
[2020-01-23] MEDS: ONDANSETRON INJ 2 MG/ML 2 ML VIAL IV PRN (09:27)
[2020-01-23] MEDS ORDERED: GLYCOPYRROLATE 0.2 MG/ML VIAL ONE (09:35)
[2020-01-23] MEDS ORDERED: NEOSTIGMINE METHYLSULFATE 5 MG/5 ML SYR ONE (09:35)
[2020-01-23] MEDS ORDERED: ONDANSETRON INJ 2 MG/ML 2 ML VIAL ONE ×2 (09:35→11:45)
[2020-01-23] MEDS ORDERED: MIDAZOLAM HCL 1 MG/ML 2ML VIAL ONE (09:35)
[2020-01-23] MEDS ORDERED: fentaNYL citrate 100 MCG/2 ML VIAL ONE (09:35)
[2020-01-23] MEDS ORDERED: PROPOFOL IV EMULSION 10 MG/ML 20 ML VIAL IV ONE (09:35)
[2020-01-23] MEDS ORDERED: DEXAMETHASONE SOD INJ 4 MG/ML VIAL ONE (09:35)
[2020-01-23] MEDS ORDERED: LIDOCAINE HCL 2% 2 ML VIAL/AMP(20MG/ML) INFIL ONE (09:35)
--- NOTE | 2020-01-23 09:40 | Nephrology Progress Note ---
Date of Service January 23, 2020 Assessment & Plan (1) DESIREE (acute kidney injury): Stage 3 DESIREE w/ some improvement since yesterday: concern for ATN in setting of n/v/prerenal > ischemic atn. also on bactrim at admission; she is so far responding to IVF plus holding nephrotoxic meds. Presenting creatinine 9.5 on 01/20; baseline creatinine 1.5-1.8 as recently as mid December 2019. no olig uria since admission. infiltration/inflammation adjacent to graft on imaging noted >> monitor but for now no intervention needed > she does have mild generalized TTP over allograft; will -no indication for urgent dialysis but cannot rule out need -cont lowered cyclosporine dose 50 mg bid d/t DESIREE -not to have ibrutinib as below -strict I/O -improving but still significant anion gap metabolic acidosis; bicarb normalizing > will cont for today 1/2 NS w/ 75 mEq/L sodium bicarb but further increase rate to 200 mL hourly > she is tolerating -cont to hold mag d/t elevated mag; held MVI d/t DESIREE, high K potentially in MVI -cont low K diet d/t DESIREE (2) History of kidney transplant: -severe DESIREE; immunosuppression (cyclosporine dose)reduced d/t DESIREE -no indication for cyclosporine level -cont prednisone (3) Hyponatremia: -on OP salt tabs which here may contribute to GI upset > will stop them; will continue IVF as above and repeat noon labs -goal sNa for am 11/13 is 136 >> she is on target; cont to hold salt tabs (4) 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 as OP >> hold for now d/t DESIREE >> this medication has been known to cause severe Desiree and more commonly n/v/abd pain/constipation -I have discussed her care w/ Dr Clemons, her OP human resource consultant, and he agrees w/ plan to hold ibrutinib Admission and Anticipated Discharge Date Admission Date: January 21, 2020 Subjective attempted x 3 to see pt today but she was off the floor for a procedure. I did speak to her by phone this evening > no longer dizzy w/ standing; taking po and tolerating; ambulating w/o issue; still some generalized weakness; voiding a lot; no sob but slight chronic cough stable; bloating better, bm once; some early satiety; no edema Review of Systems Review of Systems: All systems reviewed & are unremarkable except as noted in HPI & below Physical Exam Constitutional: cooperative; no acute distress Respiratory: normal respiratory effort Psychiatric: A+Ox3, euthymic affect Insight: good insight Judgement: good judgement Results & Data ([facility]) Vital Signs (Past 12 Hours) Vital Signs Temp Pulse Pulse Resp BP Pulse Ox 01/23/20 08:06 36.3 C L 82 16 138/88 96 01/23/20 04:00 36.3 C L 79 16 134/90 97 01/22/20 23:19 36.7 C 72 16 132/80 96 01/22/20 23:06 69 Laboratory Results 01/23/20 06:33 01/23/20 06:33 blood cxs ngtd Diagnostic Findings MRI panc 1. No gallstones identified 2. No evidence of intra or extrahepatic biliary ductal dilatation. The common bile duct is the upper limits of normal in size measuring 6 mm 3. No ductal calculi identified 4. Mild ectasia of the proximal pancreatic duct which measures up to 4.3 mm in diameter 5. Innumerable pancreatic cysts 6. Atrophic [place] kidneys with upper pole left renal cysts 7. Right lower quadrant transplant kidney with perinephric stranding. Clinical correlation to exclude infection is recommended 8. Mild splenomegaly
--- NOTE | 2020-01-23 10:06 | Anesthesiology Consultation ---
Date of Service January 23, 2020 Assessment & Plan Consults Requested none History Surgery Operation Date: 01/23/20 07:00 Proposed Procedures p Endoscopic Retrograde Cholangiopancreatogram - Baltazar Rosales MD s Endoscopic Ultrasonography Upper - Baltazar Rosales MD s Esophagogastroduodenoscopy - Baltazar Rosales MD Operation Date: 01/23/20 15:30 Proposed Procedures p Esophagogastroduodenoscopy Dr Rosales - Baltazar Rosales MD Height/Weight Height: 5 ft 2 in Weight: 59 kg Allergies Allergy/AdvReac Type Severity Reaction Status Date / Time hydralazine Allergy Severe Hives Verified 01/21/20 22:09 morphine Allergy Severe Hives Verified 01/21/20 22:09 nitroglycerin AdvReac Severe Migraine Verified 01/21/20 22:09 valacyclovir AdvReac Severe Vomiting Verified 01/21/20 22:09 Medications Home Medications Medication Instructions Recorded Confirmed Last Taken [place] 3-6-9 Fatty Acids 1 cap PO DAILY 03/13/18 01/21/20 01/21/20 ascorbic acid (vitamin C) 1,000 mg PO BID 03/13/18 01/21/20 10/23/19 05:00 biotin 10,000 mcg PO QAM 03/13/18 01/21/20 10/23/19 05:00 cetirizine 10 mg PO QAM 03/13/18 01/21/20 10/23/19 05:00 folic acid 1 mg PO QAM 03/13/18 01/21/20 01/21/20 09:00 lorazepam 1 mg PO Q8 PRN 03/13/18 01/21/20 10/22/19 multivitamin 1 tab PO QAM 03/13/18 01/21/20 10/23/19 05:00 prednisone 2.5 mg PO QAM 03/13/18 01/21/20 01/21/20 09:00 montelukast 10 mg PO QPM 10/24/18 01/21/20 10/22/19 aspirin 81 mg tablet,delayed 81 mg PO QAM 01/08/19 01/21/20 10/23/19 05:00 release buspirone 5 mg tablet 5 mg PO TID tab 01/08/19 01/21/20 10/23/19 05:00 cimetidine 400 mg tablet 400 mg PO BID 01/08/19 01/21/20 01/21/20 09:00 fluticasone propionate 50 2 spray INTRANASAL HS gm 01/08/19 01/21/20 10/22/19 mcg/actuation nasal spray,suspension melatonin 5 mg capsule 10 - 15 mg PO HS cap 01/08/19 01/21/20 10/21/19 pantoprazole 40 mg tablet,delayed 40 mg PO BID tab 01/08/19 01/21/20 01/21/20 09:00 release rizatriptan 10 mg tablet 10 mg PO Q2H PRN #36 tab MDD 20 mg 01/08/19 01/21/20 Unknown rosuvastatin 5 mg tablet 5 mg PO QPM tab 01/08/19 01/21/20 10/22/19 sodium chloride 1 gram tablet 500 mg PO BID tab 01/08/19 01/21/20 01/21/20 09:00 zolpidem 10 mg tablet 5 - 10 mg PO HS tab 01/08/19 01/21/20 10/22/19 tramadol 100 mg PO TID 03/09/19 01/21/20 10/22/19 allopurinol 200 mg PO QAM 04/01/19 01/21/20 01/21/20 09:00 Probiotic Blend 1 cap PO HS 10/17/19 01/21/20 10/21/19 labetalol 300 mg PO QID 10/17/19 01/21/20 01/21/20 20:00 clonidine HCl 0.1 mg tablet 0.1 mg PO QID tab 12/12/19 01/21/20 Unknown fremanezumab-vfrm 225 mg/1.5 mL 225 mg SUBCUT MONTHLY 30 Days #1.5 12/22/19 01/21/20 12/21/19 11:00 subcutaneous syringe ml amlodipine 2.5 mg PO DAILY 01/21/20 01/21/20 Unknown calcium carbonate-vitamin D3 1 tab PO DAILY 01/21/20 01/21/20 Unknown [Calcium + D] cyclosporine modified 150 mg PO BID 01/21/20 01/21/20 01/21/20 20:00 diphenhydramine HCl [Benadryl] 25 mg PO Q6 PRN 01/21/20 01/21/20 Unknown ibrutinib [Imbruvica] 280 mg PO QPM 01/21/20 01/21/20 01/21/20 20:00 lactobacillus combination no.4 0 mmu cells PO DAILY 01/21/20 01/21/20 Unknown [Probiotic] magnesium chloride 64 mg PO DAILY 01/21/20 01/21/20 01/21/20 09:00 mirtazapine 45 mg PO HS 01/21/20 01/21/20 Unknown ondansetron HCl [Zofran] 4 mg PO Q8 PRN 01/21/20 01/21/20 01/21/20 oxycodone [Roxicodone] 5 mg PO Q6 PRN 01/21/20 01/21/20 01/21/20 16:00 polyethylene glycol 3350 [Miralax] 17 g PO DAILY 01/21/20 01/21/20 Unknown promethazine 25 mg PO Q6 PRN 01/21/20 01/21/20 01/20/20 sennosides [senna] 8.6 mg PO DAILY 01/21/20 01/21/20 01/20/20 sulfamethoxazole-trimethoprim 1 tab PO BID 01/21/20 01/21/20 01/21/20 09:00 tizanidine [Zanaflex] 4 mg PO Q6 PRN 01/21/20 01/21/20 01/21/20 08:00 Active Medications Generic Name Dose Route Start Last Admin Trade Name Freq PRN Reason Stop Dose Admin Allopurinol 200 mg 01/22/20 09:00 01/23/20 08:29 Allopurinol 100 Mg Tab PO 02/21/20 08:59 Not Given QAM LA Ascorbic Acid 1,000 mg 01/22/20 09:00 01/23/20 08:29 Ascorbic Acid 500 Mg Tab PO 02/21/20 08:59 Not Given BID LA Buspirone HCl 5 mg 01/22/20 09:00 01/23/20 08:27 Buspirone 5 Mg Tab PO 02/21/20 08:59 Not Given TID LA Cetirizine HCl 10 mg 01/22/20 09:00 01/23/20 08:30 Cetirizine Hcl 10 Mg Tablet PO 02/21/20 08:59 Not Given QAM LA Cyclosporine 50 mg 01/22/20 09:00 01/23/20 08:27 Cyclosporine 25 Mg Cap PO 02/21/20 08:59 Not Given BID LA Fluticasone Propionate 2 sprays 01/22/20 21:00 01/22/20 20:04 Fluticasone Propionate Na Spr 16 Gm Btl NA 02/21/20 20:59 2 sprays HS LA Administration Folic Acid 1 mg 01/22/20 09:00 01/23/20 08:27 Folic Acid 1 Mg Tab PO 02/21/20 08:59 Not Given QAM LA Sodium Bicarbonate 75 meq/ 1,075 mls @ 200 mls/hr 01/21/20 23:00 01/23/20 04:09 Sodium Chloride IV 02/20/20 22:59 125 mls/hr .Q5H23M LA Administration Ceftriaxone Sodium 1,000 mg/ 60 mls @ 100 mls/hr 01/22/20 21:00 01/22/20 20:43 Dextrose IV 01/30/20 21:35 Infused Q24H [facility] Infusion Protocol Labetalol HCl 300 mg 01/22/20 09:00 01/23/20 08:27 Labetalol Hcl 300 Mg Tab PO 02/21/20 08:59 Not Given QID LA Lactobacillus Acidoph/Casei/Rhamnos 2 cap 01/22/20 09:00 01/23/20 08:28 Advanced Probiotic 1250 Mg Capsule PO 02/21/20 08:59 Not Given DAILY LA Mirtazapine 45 mg 01/22/20 21:00 01/22/20 20:04 Mirtazapine Soltab 15 Mg PO 02/21/20 20:59 45 mg HS LA Administration Montelukast Sodium 10 mg 01/22/20 21:00 01/22/20 20:04 Montelukast Sodium 10 Mg Tablet PO 02/21/20 20:59 10 mg QPM LA Administration Multivitamins 1 tab 01/22/20 09:00 01/22/20 08:25 Multivitamin Tab PO 02/21/20 08:59 1 tab QAM LA Administration Ondansetron HCl 4 mg 01/21/20 23:52 01/23/20 09:27 Ondansetron Inj 2 Mg/Ml 2 Ml Vial IV 02/20/20 23:51 4 mg Q6H PRN Administration Nausea Oxycodone HCl 5 mg 01/22/20 00:29 01/23/20 04:36 Oxycodone Hcl Ir 5 Mg Tab (Immediate Release) PO 02/05/20 00:28 5 mg Q6 PRN Administration Severe Pain (Scale Score 7-10) Pantoprazole Sodium 40 mg 01/23/20 09:00 01/23/20 08:28 Pantoprazole 40 Mg Tab PO 02/22/20 08:59 Not Given BID LA Polyethylene Glycol 17 gm 01/22/20 09:00 01/23/20 08:27 Polyethylene (Miralax) 17 Gm Pack PO 02/21/20 08:59 Not Given DAILY LA Prednisone 2.5 mg 01/22/20 09:00 01/23/20 08:27 Prednisone 2.5 Mg Tab PO 02/21/20 08:59 Not Given QAM LA Rosuvastatin Calcium 5 mg 01/22/20 21:00 01/22/20 20:03 Rosuvastatin Calcium 5 Mg Tab PO 02/21/20 20:59 5 mg QPM LA Administration Sennosides 8.6 mg 01/22/20 09:00 01/23/20 08:28 Senna 8.6 Mg Tab PO 02/21/20 08:59 Not Given DAILY LA Tizanidine HCl 4 mg 01/21/20 23:52 01/22/20 23:47 Tizanidine Hcl 4 Mg Tablet PO 02/20/20 23:51 4 mg Q6 PRN Administration Muscle Spasm Tramadol HCl 100 mg 01/22/20 09:00 01/23/20 08:28 Tramadol Hcl 50 Mg Tablet PO 02/21/20 08:59 Not Given TID LA Zolpidem Tartrate 5 - 10 mg 01/22/20 21:00 01/22/20 20:08 Zolpidem Tartrate 10 Mg Tab PO 02/21/20 20:59 10 mg HS LA Administration Past Medical History Medical History Anxiety Aortic regurgitation "s/p bioprosthetic AVR" Autoimmune hemolytic anemia B-cell lymphoma diagnosed 03/2019--chemo Carcinoma in situ removed in office Cervicalgia Chronic back pain Chronic pancreatitis CKD (chronic kidney disease), stage III Depression Dyslipidemia ESBL (extended spectrum beta-lactamase) producing bacteria infection Essential hypertension Gastroparesis GERD (gastroesophageal reflux disease) History of DVT (deep vein thrombosis) History of herpes zoster 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" History of pericarditis History of renal calculi Hypertension Hypertensive heart disease Hyponatremia Leukopenia Macular degeneration Marginal zone lymphoma Migraine headache Nausea and vomiting after administration of anesthetic agent Neurofibromatosis Pancreatic cyst Recurrent UTI Renal transplant recipient Ulcerative colitis Past Family History Family History Grandmother (Maternal) Coronary heart disease Family history of diabetes mellitus Grandfather (Paternal) Coronary heart disease Mother Kidney donor Other No family history of adverse response to anesthesia No family history of kidney disease Past Surgical History Surgical [place] [facility] [place]/O prior ablation treatment percutaneous peripheral nerve / C5-C6 ablation History of biopsy renal History of cardiac cath 2016 prior to AVR--no stent History of chest tube placement History of colonoscopy History of cystoscopy History of esophagogastroduodenoscopy (EGD) History of lithotripsy History of tonsillectomy and adenoidectomy History of tooth extraction History of wisdom tooth extraction Status post aortic valve [place]oprosthetic [place] [facility] [place]follows with Dr. Rizo Status post -donor kidney transplantation 12/1984--removed 01/1990 Status post living-donor kidney transplantation in 06/1990 Social History Smoking Status: Former smoker tobacco type: cigarettes Do You Dip or Chew Tobacco: No Hx Alcohol Use: No Hx Substance Use: No substance use type: does not use Last Used Substance: Unknown Physical Exam Vital Signs Last Vital Signs Temp 36.3 C L 01/23/20 08:06 Pulse 82 01/23/20 08:06 Resp 16 01/23/20 08:06 BP 138/88 01/23/20 08:06 Pulse Ox 96 01/23/20 08:06 Testing Laboratory Results 01/23/20 06:33 01/23/20 06:33 PT 13.2 Seconds (9.0-12.0) H 01/21/20 18:57 INR 1.3 (0.9-1.1) H 01/21/20 18:57 Urine Color Yellow 01/21/20 20:45 Urine Appearance Clear (Clear) 01/21/20 20:45 Urine pH 5.0 (4.5-7.5) 01/21/20 20:45 Ur Specific [place] 1.016 (1.000-1.030) 01/21/20 20:45 Urine Protein 1+ (Negative) H 01/21/20 20:45 Urine Glucose (UA) Negative (Negative) 01/21/20 20:45 Urine Ketones Trace (Negative) H 01/21/20 20:45 Urine Nitrite Negative (Negative) 01/21/20 20:45 Ur Leukocyte Esterase Trace (Negative) H 01/21/20 20:45 Urine WBC (Auto) 5-10 /hpf (0-5) H 01/21/20 20:45 Urine RBC (Auto) 5-10 /hpf (0-4) H 01/21/20 20:45 U Hyaline Cast (Auto) 0 /lpf (0-5) 01/21/20 20:45 U Epithel Cells (Auto) 10-20 /lpf (0-5) H 01/21/20 20:45 Urine Bacteria (Auto) Negative (Negative) 01/21/20 20:45 01/21/20 18:45 Aerobic Blood Culture - Preliminary Blood No growth in Aerobic bottle after 24 hours. Anaerobic Blood Culture - Final 01/21/20 18:37 Aerobic Blood Culture - Preliminary Blood No growth in Aerobic bottle after 24 hours. Anaerobic Blood Culture - Final
[2020-01-23] MEDS ORDERED: ATROPINE SULFATE 0.1 MG/ML 10ML SYR IV PRN (10:18)
[2020-01-23] MEDS ORDERED: IOVERSOL 50ml IV ONE ×2 (10:18→10:19)
[2020-01-23] MEDS ORDERED: HYDROmorphone INJ 2 MG/ML SYR/VIAL IV PRN (10:18)
[2020-01-23] MEDS ORDERED: fentaNYL citrate 100 MCG/2 ML VIAL IV PRN (10:18)
[2020-01-23] MEDS ORDERED: ePHEDrine sulfate 50 MG/ML AMP IV PRN (10:18)
[2020-01-23] MEDS ORDERED: PROMETHAZINE HCL 12.5 MG in SODIUM CHLORIDE 0.9% 50 ML IV PRN (10:18)
[2020-01-23] MEDS ORDERED: ONDANSETRON INJ 2 MG/ML 2 ML VIAL IV PRN (10:18)
[2020-01-23] MEDS ORDERED: METOCLOPRAMIDE HCL INJ 5 MG/ML 2 ML VIAL IV PRN (10:18)
--- NOTE | 2020-01-23 11:16 | History & Physical Bridge Note ---
Date of Service January 23, 2020 History & Physical Bridge Note I have examined the patient, reviewed the History & Physical and in the interval since the performance of the History & Physical I have noted the following changes of clinical significance: no changes noted
--- NOTE | 2020-01-23 11:41 | GI REPORT ---
Patient Name: Radha Burgos Procedure Date: 01/23/2020 11:16 AM Date of : 1970 Admit Type: Inpatient Age: 49 Gender: Female Attending MD: Baltazar Rosales MD Procedure: Upper GI endoscopy Providers: Baltazar Rosales MD Referring MD: Stuart Ravi Indications: Abdominal pain Medicines: Propofol per Anesthesia Complications: No immediate complications. Estimated Blood Loss: Estimated blood loss: none. Procedure: Pre-Anesthesia Assessment: - Prior to the procedure, a History and Physical was performed, and patient medications, allergies and sensitivities were reviewed. The patient's tolerance of previous anesthesia was reviewed. - The risks and benefits of the procedure and the sedation options and risks were discussed with the patient. All questions were answered and informed consent was obtained. - Patient identification and proposed procedure were verified prior to the procedure by the physician and the nurse. The procedure was verified in the procedure room. - Pre-procedure physical examination revealed no contraindications to sedation. After obtaining informed consent, the endoscope was passed under direct vision. Throughout the procedure, the patient's blood pressure, pulse, and oxygen saturations were monitored continuously. The Endoscope was introduced through the mouth, and advanced to the second part of duodenum. The upper GI endoscopy was accomplished without difficulty. The patient tolerated the procedure well. Findings: The examined esophagus was normal. Mildly erythematous mucosa without bleeding was found in the gastric body and in the gastric antrum. Biopsies were taken with a cold forceps for Helicobacter pylori testing. Verification of patient identification for the specimen was done by the physician and nurse using the patient's name and date. The duodenal bulb and second portion of the duodenum were normal. Impression: - Normal esophagus. - Erythematous mucosa in the gastric body and antrum. Biopsied. - Normal duodenal bulb and second portion of the duodenum. Recommendation: - Perform an upper endoscopic ultrasound (UEUS) today. Baltazar Rosales MD 01/23/2020 11:41:19 AM This report has been signed electronically. Note Initiated On: 01/23/2020 11:16 AM Number of Addenda: 0 I attest to the content of the Intraoperative Record and orders documented therein, exceptions below {[id number]}
[2020-01-23] MEDS ORDERED: LARYING-O-JET KIT (LTA) ONE (11:45)
[2020-01-23] MEDS ORDERED: ROCURONIUM BROMIDE 10 MG/ML 5 ML VIAL IV ONE (11:45)
--- NOTE | 2020-01-23 12:11 | Operative Report ---
Post Operative Report Pre & Post Diagnosis Operation Date: 01/23/20 07:00 Pre-Op Diagnosis: Chronic Pancreatitis Post-Op Diagnosis: Chronic Pancreatitis Operation Date: 01/23/20 15:30 <No data on this case meets the specified criteria> I identified the patient and participated in the time-out.: Yes Procedure Operation Date: 01/23/20 07:00 <No data on this case meets the specified criteria> Operation Date: 01/23/20 15:30 <No data on this case meets the specified criteria> Surgeon Baltazar Rosales MD Chief Strategy Officer None Estimated Blood Loss 0 Findings See Below (Chronic pancreatitis with multiple cysts, no indtraductal stone) Specimens FNA of pancreas cyst Description of Procedure EUS I attest to the content of the Intraoperative Record and any orders documented therein. Any exceptions are noted below.
[2020-01-23] MEDS ORDERED: CIPROFLOXACIN / D5W 200 MG/100 ML BAG IV STA (12:12)
--- NOTE | 2020-01-23 13:40 | GI REPORT ---
Patient Name: Radha Burgos Procedure Date: 01/23/2020 11:13 AM Date of : 1970 Admit Type: Inpatient Age: 49 Gender: Female Attending MD: Baltazar Rosales MD Procedure: Upper EUS Providers: Baltazar Rosales MD Referring MD: Osmin Ariza M.d. Indications: Pancreatic cyst on MRCP, Dilated pancreatic duct on MRCP Medicines: General Anesthesia, Cipro 200 mg IV Complications: No immediate complications. Estimated Blood Loss: Estimated blood loss: none. Procedure: Pre-Anesthesia Assessment: - Prior to the procedure, a History and Physical was performed, and patient medications, allergies and sensitivities were reviewed. The patient's tolerance of previous anesthesia was reviewed. - The risks and benefits of the procedure and the sedation options and risks were discussed with the patient. All questions were answered and informed consent was obtained. - Patient identification and proposed procedure were verified prior to the procedure by the physician and the nurse. The procedure was verified in the procedure room. - Pre-procedure physical examination revealed no contraindications to sedation. After obtaining informed consent, the endoscope was passed under direct vision. Throughout the procedure, the patient's blood pressure, pulse, and oxygen saturations were monitored continuously. The Endosonoscope was introduced through the mouth, and advanced to the second part of duodenum. The upper EUS was accomplished without difficulty. The patient tolerated the procedure well. Findings: ENDOSONOGRAPHIC FINDING: : There was no sign of significant endosonographic abnormality in the ampulla. No masses were identified. There was no sign of significant endosonographic abnormality in the common bile duct. The maximum diameter of the duct was 5.5 mm. No stones and no biliary sludge were identified. There was no sign of significant endosonographic abnormality in the gallbladder. No stones and no biliary sludge were identified. There was no sign of significant endosonographic abnormality in the visualized portion of the liver. Pancreatic parenchymal abnormalities were noted in the entire pancreas. These consisted of calcifications, diffuse echogenicity, hyperechoic strands, lobularity and cysts. No intraductal stones seen however there were two small side branched stones in the pancreatic head area. The pancreatic duct diameter in the head was 3.2 mm and tapers down to 1.2 mm in the body, tail area. Anechoic lesions suggestive of multiple cysts were identified in the pancreatic head, pancreatic body, pancreatic tail and uncinate process of the pancreas. They measured between 8 to 18 mm in maximal cross-sectional diameter. There was no associated mass. Diagnostic needle aspiration for fluid was performed. Color Doppler imaging was utilized prior to needle puncture to confirm a lack of significant vascular structures within the needle path. One pass was made with the 22 gauge needle using a transgastric approach. A stylet was used. The amount of fluid collected was 2 mL. The fluid was clear and viscous. Sample(s) were sent for amylase concentration, cytology and CEA. Verification of patient identification for the specimen was done by the physician and nurse using the patient's name and date. There was no sign of significant endosonographic abnormality in the visualized portion of the left adrenal gland. There was no sign of significant endosonographic abnormality involving the celiac trunk. Impression: - There was no sign of significant pathology in the ampulla. - There was no sign of significant pathology in the common bile duct. - There was no sign of significant pathology in the gallbladder. - There was no evidence of significant pathology in the visualized portion of the liver. - Pancreatic parenchymal abnormalities consistent with multicystic chronic pancreatitis. No intraductal stones. - Multiple cysts were seen in the pancreatic head, body, tail and uncinate process of the pancreas. Fine needle aspiration for fluid performed from the largest cyst. No worrisome features in any of the cysts. - Endosonographic images of the left adrenal gland were unremarkable. - The celiac trunk was endosonographically normal. Recommendation: - Return patient to [facility] for ongoing care. - Perform magnetic resonance imaging (MRI) with gadolinium in 6 months for surveillance. Baltazar Rosales MD 01/23/2020 1:39:37 PM This report has been signed electronically. Note Initiated On: 01/23/2020 11:13 AM Number of Addenda: 0 I attest to the content of the Intraoperative Record and orders documented therein, exceptions below {[id number]}
--- NOTE | 2020-01-23 13:45 | Anesthesiology Progress Note ---
Date of Service January 23, 2020 Anesthesia Post Procedure Vital Signs Vital Signs: Temp Pulse Pulse Pulse Resp BP BP 01/23/20 13:05 36.5 C 75 12 113/76 01/23/20 12:55 76 14 114/72 01/23/20 12:45 80 16 116/80 01/23/20 12:35 75 12 120/81 01/23/20 12:25 36.4 C L 78 12 141/80 H 01/23/20 10:28 90 01/23/20 10:11 36.6 C 87 20 131/96 01/23/20 08:06 36.3 C L 82 16 138/88 01/23/20 04:00 36.3 C L 79 16 134/90 01/22/20 23:19 36.7 C 72 16 132/80 01/22/20 23:06 69 01/22/20 19:57 36.3 C L 65 16 131/85 01/22/20 15:40 36.4 C L 69 18 122/80 Pulse Ox 01/23/20 13:05 93 01/23/20 12:55 93 01/23/20 12:45 97 01/23/20 12:35 98 01/23/20 12:25 100 01/23/20 10:28 01/23/20 10:11 97 01/23/20 08:06 96 01/23/20 04:00 97 01/22/20 23:19 96 01/22/20 23:06 01/22/20 19:57 96 01/22/20 15:40 98 Pain Intensity Right Abdomen: Pain Intensity: 8 Chest: Pain Intensity: 2 Transfer of Care Handoff Completed per policy Notes Mental Status: alert / awake / arousable and participated in evaluation Patient Amnestic to Procedure: Yes Nausea / Vomiting: adequately controlled Pain: adequately controlled Airway Patency, RR, SpO2: stable & adequate BP & HR: stable & adequate Hydration State: stable & adequate Anesthetic Complications: no major complications apparent
[2020-01-23] MEDS: tiZANidine HCL 4 MG TABLET PO PRN ×2 (14:16→20:50)
[2020-01-23 15:00] LABS: Albumin Globulin Ratio 0.7 (0.9-2); Albumin Level 2.9 gm/dl (3.4-5.0); Bilirubin,Total 0.9 mg/dl (0.2-1); Calcium 9.1 mg/dl (8.5-10.1); Est GFR (African American) 8.7; Est GFR (Non-African American) 7.5; Globulin 4.1 gm/dl (2.5-4.0); Potassium 3.8 mmol/L (3.5-5.1)
[2020-01-23] MEDS ORDERED: Nursing to Pharmacy Communication SCH (17:45)
[2020-01-23] MEDS: cefTRIAXone SODIUM 1,000 MG in DEXTROSE 5% 50 ML IV SCH (20:47)
[2020-01-23] MEDS: ROSUVASTATIN CALCIUM 5 MG TAB PO SCH (20:47)
[2020-01-23] MEDS: MONTELUKAST SODIUM 10 MG TABLET PO SCH (20:48)
[2020-01-23] MEDS: MIRTAZAPINE SOLTAB 15 MG PO SCH (20:49)
[2020-01-23] MEDS: FLUTICASONE PROPIONATE NA SPR 16 GM BTL SCH (20:50)
[2020-01-24] MEDS: LABETALOL HCL 300 MG TAB PO SCH ×4 (00:03→17:07)
[2020-01-24] MEDS: cycloSPORINE 25 MG CAP PO SCH ×3 (00:03→20:15)
[2020-01-24] MEDS: SODIUM BICARBONATE 8.4% 75 MEQ in SODIUM CHLORIDE 0.45 % 1,000 ML IV SCH ×3 (00:04→11:16)
[2020-01-24] MEDS: ACETAMINOPHEN 325 MG TAB PO PRN ×2 (00:09→20:31)
[2020-01-24] MEDS: MELATONIN 3 MG TAB PO PRN (00:09)
[2020-01-24] MEDS: ZOLPIDEM TARTRATE 10 MG TAB PO SCH (00:10)
[2020-01-24 07:59] LABS: Basophils # (auto) 0.01 K/uL (0-0.2); Basophils % (auto) 0.1 %; Eosinophils # (auto) 0.02 K/uL (0-0.5); Eosinophils % (auto) 0.2 %; Hematocrit (blood only) 30.8 % (37-47); Hemoglobin 10.4 g/dL (12.0-16.0); Immature Granulocytes # (auto) 0.28 K/uL (0.00-0.02); Immature Granulocytes % (auto) 2.9 %; Lymphocytes % (auto) 16.4 %; Mean Corpuscular Hemoglobin 28.2 pg (25-34); Mean Corpuscular Hgb Conc 33.8 g/dL (32-36); Mean Corpuscular Volume 83.5 fL (80-100); Mean Platelet Volume 11.2 fL (7.4-10.4); Monocytes # (auto) 1.24 K/uL (0.11-0.59); Monocytes % (auto) 12.7 %; Neutrophils # (auto) 6.63 K/uL (1.4-6.5); Neutrophils % (auto) 67.7 %; Platelet Count 247 K/uL (130-400); RDW Coefficient of Variation 14.1 % (11.5-14.5); RDW Standard Deviation 43.1 fL (36.4-46.3); Red Blood Count 3.69 M/uL (4.2-5.4); White Blood Count 9.78 K/uL (4.8-10.8)
[2020-01-24] MEDS: POLYETHYLENE (MIRALAX) 17 GM PACK PO SCH (08:06)
[2020-01-24] MEDS: traMADol HCL 50 MG TABLET PO SCH ×3 (08:07→20:32)
[2020-01-24] MEDS: CETIRIZINE HCL 10 MG TABLET PO SCH (08:09)
[2020-01-24] MEDS: allopurinoL 100 MG TAB PO SCH (08:09)
[2020-01-24] MEDS: FOLIC ACID 1 MG TAB PO SCH (08:10)
[2020-01-24] MEDS: MULTIVITAMIN TAB PO SCH (08:10)
[2020-01-24] MEDS: predniSONE 2.5 MG TAB PO SCH (08:10)
[2020-01-24] MEDS: SENNA 8.6 MG TAB PO SCH (08:10)
[2020-01-24] MEDS: busPIRone 5 MG TAB PO SCH ×3 (08:11→20:15)
[2020-01-24] MEDS: ASCORBIC ACID 500 MG TAB PO SCH ×2 (08:11→20:16)
[2020-01-24] MEDS: PANTOprazole 40 MG TAB PO SCH ×2 (08:11→20:14)
[2020-01-24] MEDS: ADVANCED PROBIOTIC 1250 MG CAPSULE PO SCH (08:12)
[2020-01-24] MEDS: tiZANidine HCL 4 MG TABLET PO PRN ×2 (08:13→13:53)
[2020-01-24] MEDS: amLODIPine BESYLATE 5 MG TAB PO SCH (08:15)
[2020-01-24] MEDS: CIMETIDINE PO PRN ×2 (08:18→20:22)
[2020-01-24] MEDS: ONDANSETRON INJ 2 MG/ML 2 ML VIAL IV PRN (08:23)
[2020-01-24] MEDS: ASPIRIN 81 MG CHEW PO SCH (08:23)
--- NOTE | 2020-01-24 08:30 | Hospitalist Progress Note ---
Date of Service January 24, 2020 Assessment & Plan (1) DESIREE (acute kidney injury): -patient presented to ED on Thus01/21/2020 -as per admission History and Physical "This 49-year-old female with past medical history significant for history of renal transplant in early 90s, hemolytic anemia, chronic leukopenia, thrombocytopenia, history of recurrent UTIs, history of hypertension, history of complete heart block status post pacemaker, pancreatic cyst, hyperlipidemia, non-rheumatic aortic valve insufficiency, status post aortic valve replacement, history of right leg deep venous thrombosis, history of ulcerative colitis, history of nephritis and nephropathy with pathological lesion in kidney, chronic kidney disease, neurofibromatosis, migraines, macular degeneration, chronic pain syndrome, marginal zone lymphoma, cold agglutinin disease, history of aortic root repair. The patient lives with her . The patient was having nausea, vomiting and dizziness since last Sunday, she was diagnosed with UTI and she was prescribed Bactrim for pansensitive E. coli, but since last Sunday, she is not eating and drinking anything because she has a lot of nausea and abdominal discomfort and not moved her bowels because of not eating anything. Denies any fever, chills. Blood pr essure was low, systolic in 70s, 80s in her family doctor's office today and she in spite holding her home medication, amlodipine and clonidine, she was taking labetalol. She was still vomiting, lightheadedness and standing becoming difficult, so the family physician advised to the ER. Here, she was found to have sodium of 126, potassium of 5, creatinine of 9.4, BUN of 119, CO2 17, anion gap of 16. Baseline creatinine around 1.1-1.2. Lactate was 0.2. Urinalysis, trace leukocyte esterase. COVID-19 PCR was negative in the ER. Lipase was elevated at 2000. CAT showing chronic pancreatitis findings and also CT of the abdomen and pelvis also showing some infiltration adjacent to the renal allograft with urothelial thickening, possible infectious process. Chest x-ray was okay. ER talked to Nephrology and recommended to start on half normal saline with bicarbonate drip. The patient wants to stay here today, does not want to transfer to [facility]. She says she is feeling fine, she does not think she needs to be transferred, afebrile. Denies any cough, no chest pain. She has her usual short of breath on exertion. Has some headache, no earache, has cough with postnasal drip. Constipated. Denies any blood in stools or denies any hematuria. No swelling in the legs, no rash. -1/2 NS w/ 75 mEq/L sodium bicarb at 100 mL/hr and following the renal function. creatinine downtrending to 6.77 by 01/23/2020 AM labs and then 6.06 by afternoon labs -follow any further nephrology recommendations (2) Metabolic acidosis, increased anion gap: -IV fluids as above and trend the labs -as of 01/23/2020 labs, anion gap remains, but metabolic acidosis appears to have improved (3) Hyponatremia: -serum sodium 126 on 01/21/2020 presentation -her outpatient dose of sodium chloride tablets 500 mg BID are being held at this time to prevent GI upset and while monitoring the serum sodium with the IV fluids -serum sodium 135 on 01/23/2020 AM labs Hypertension -admitting physician initially holding home dose amlodipine, clonidine, because of initial concerns for hypotension -resume home dose amlodipine 2.5 mg daily starting on 01/24/2020. Clonidine remains held as patient off of this medication 1 week prior to hospital presentation - will give if needed based on blood pressures (4) UTI (urinary tract infection): -History of recent urinary tract infection with Bactrim -UA without bacteria on admission -patient has been giving ceftriaxone on admission, continue for now as it is unclear whether perinephric stranding on imaging is from infectious causes or other etiologies (5) History of renal transplant: -has right lower quadrant renal allograft. -admission CT scan of abdomen: "There is mild graft hydronephrosis which has been shown on prior exams. There is infiltration adjacent to the graft. There is suspected wall thickening of the right collecting system and right ureter" -there was initial typo in the CT abdomen report on 01/21/2020. Dr. Coburn the radiologist was called by hospitalist who initially asked urology Dr. Campa to look at the imaging - Dr. Coburn reports that there is no ureteral calculus -home dose cyclosporine 150 mg BID has been reduced to 50 mg BID to account for the elevated creatinine and current renal function -continue home dose prednisone 2.5 mg daily Elevated Lipase Chronic Pancreatitis -admission CT scan of abdomen: "Pancreatic calcifications consistent with chronic pancreatitis. No significant change in numerous cystic pancreatic lesions, suboptimally assessed on this exam. No change in appearance of the pancreas." -elevated lipase on presentation -MRCP completed on 01/22/2020 1. No gallstones identified 2. No evidence of intra or extrahepatic biliary ductal dilatation. The common bile duct is the upper limits of normal in size measuring 6 mm 3. No ductal calculi identified 4. Mild ectasia of the proximal pancreatic duct which measures up to 4.3 mm in diameter 5. Innumerable pancreatic cysts 6. Atrophic [place] kidneys with upper pole left renal cysts 7. Right lower quadrant transplant kidney with perinephric stranding. Clinical correlation to exclude infection is recommended 8. Mild splenomegaly -01/23/2020: EGD and EUS did not find any acute problems with biliary ducts. Patient has multiple chronic pancreatic cysts (6) Marginal zone lymphoma: -patient follows with [facility] oncology Dr. Chad Clemons and has been on Ibrutinib (Imbruvica) 280 mg daily -Ibrutinib is being held at this time while assessing the renal function Hyperlipidemia - on statin Gastroesophageal reflux disease -on PPI and H2 kristi Asthma -Continue Singulair. History of hemolytic anemia, cold agglutinin disease -Hemoglobin stable Presence of Pacemaker -Other cardiac history: History of complete heart block with pacemaker, history of aortic root repair, history of non-rheumatic aortic valve insufficiency, status post aortic valve replacement -home dose aspirin resumed on 01/24/2020 since GI procedures completed on 01/23/2020 -being monitored on telemetry Deep venous thrombosis prophylaxis, sequential compression devices. Admission and Anticipated Discharge Date Admission Date: January 21, 2020 Subjective Patient seen and examined while on IV sodium bicarbonate. Breathing on room air. no respiratory distress. Lung sounds clear to auscultation. patient discussed with hospitalist her conversation with nephrology by phone yesterday night. Patient does not have acute symptoms today. No acute pain. No nausea. She is encouraged to ambulate with IV pole. Patient denies other symptoms on review of systems Review of Systems Review of Systems: All systems reviewed & are unremarkable except as noted in Subjective Physical Exam Constitutional: cooperative Eyes: PERRL, conjunctivae normal, anicteric sclerae EOM intact bilaterally ENMT: external ear and nose normal, oropharynx normal Neck: normal visual inspection Respiratory: normal respiratory effort, lungs clear to auscultation Cardiovascular: Rate/Rhythm: regular rate (paced) Gastrointestinal (Abdomen): normal bowel sounds, soft, nontender, no hepatosplenomegaly Percussion/Palpation: abdomen soft Musculoskeletal: Head/Neck/Chest: normocephalic and head atraumatic Neurologic: PERRL, EOMI, accommodation nl, no face palsy, no dysarthria moves all extremities Psychiatric: A+Ox3, euthymic affect Results & Data Results & Data ([facility]) Vital Signs (Past 12 Hours) Vital Signs Temp Pulse Pulse Resp BP Pulse Ox 01/24/20 08:04 36.5 C 80 18 119/88 98 01/24/20 07:40 71 01/24/20 03:48 36.8 C 72 20 128/72 97 01/24/20 00:26 68 01/23/20 22:00 36.8 C 74 16 135/86 93
[2020-01-24] MEDS: oxyCODONE HCL IR 5 MG TAB (IMMEDIATE RELEASE) PO PRN ×3 (09:13→22:40)
[2020-01-24 10:01] LABS: Albumin Globulin Ratio 0.8 (0.9-2); Albumin Level 2.6 gm/dl (3.4-5.0); BUN Creatinine Ratio 15.3 (10-20); Calcium 8.8 mg/dl (8.5-10.1); Creatinine Clr Calc Pharmacy 11.1 ml/min; Est GFR (African American) 11.2; Est GFR (Non-African American) 9.7; Globulin 3.4 gm/dl (2.5-4.0); Potassium 3.7 mmol/L (3.5-5.1)
--- NOTE | 2020-01-24 11:26 | Nephrology Progress Note ---
Date of Service January 24, 2020 Assessment & Plan (1) DESIREE (acute kidney injury): Stage 3 DESIREE w/ improvement since yesterday: concern for ATN in setting of n/v/prerenal > ischemic atn. also on bactrim at admission; she is so far responding to IVF plus holding nephrotoxic meds. Presenting creatinine 9.5 on 01/20; baseline creatinine 1.5-1.8 as recently as mid December 2019. no oliguria since admission. infiltration/inflammation adjacent to graft on imaging noted >> monitor but for now no intervention needed > she does have mild generalized TTP over allograft; will -no indication for urgent dialysis but cannot rule out need -cont lowered cyclosporine dose 50 mg bid d/t DESIREE -not to have ibrutinib as below -daily bmp -strict I/O -now resolved anion gap metabolic acidosis; bicarb normalizing > change 1/2 NS w/ 75 mEq/L sodium bicarb to normosol at 200 mL hourly -cont to hold mag d/t elevated mag -cont low K diet d/t DESIREE but did cx full renal diet -restarted home dose labetalol and cimetidine (2) History of kidney transplant: -severe DESIREE; immunosuppression (cyclosporine dose)reduced d/t DESIREE -no indication for cyclosporine level -cont prednisone (3) Hyponatremia: -on OP salt tabs; hyponatremia resolved here w/ hydration; cont to hold salt tabs (4) 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 as OP >> hold for now d/t DESIREE >> this medication has been k nown to cause severe Desiree and more commonly n/v/abd pain/constipation -I have discussed her care w/ Dr Clemons, her OP diagnostic cardiac sonographer, and he agrees w/ plan to hold ibrutinib; recommend d/c w/o this medication and have pt follow up w/ hematology 2-4 wks after d/c to discuss Admission and Anticipated Discharge Date Admission Date: January 21, 2020 Subjective seen on rounds at 1300; feeling much better; hungry; tolerating po; no sob; no edema; no cough/orthopnea; no voiding concerns; wants off renal diet and to resume OP regimen for labetalol and cimetidine Review of Systems Review of Systems: All systems reviewed & are unremarkable except as noted in HPI & below Physical Exam Constitutional: well developed, well nourished and cooperative; no acute distress Eyes: EOM intact bilaterally ENMT: Ears: no external ear abnormality Nose: no external nose abnormality Mouth: + dry oral mucous membranes Neck: no nuchal rigidity Respiratory: normal respiratory effort Auscultation: lungs clear to auscul tation bilaterally and + diminished lung sounds Cardiovascular: Rate/Rhythm: regular rate and regular rhythm Heart Sounds: + murmur Extremities: no edema Gastrointestinal (Abdomen): Inspection/Auscultation: + abnormal bowel sounds (diminished) Percussion/Palpation: abdomen soft; abdomen nontender, abdomen not rigid and no ascites Musculoskeletal: Extremities: strength 5/5 throughout Skin: no rashes, warm and dry Neurologic: dunlap, fluent speech, no tremor Psychiatric: A+Ox3, euthymic affect Insight: good insight Judgement: good judgement Results & Data ([facility]) Vital Signs (Past 12 Hours) Vital Signs Temp Pulse Pulse Resp BP Pulse Ox 01/24/20 08:04 36.5 C 80 18 119/88 98 01/24/20 07:40 71 01/24/20 03:48 36.8 C 72 20 128/72 97 01/24/20 00:26 68 Laboratory Results 01/24/20 07:19 01/24/20 07:19
[2020-01-24] MEDS: NORMOSOL-R 1,000 ML IV SCH ×3 (11:36→20:16)
[2020-01-24] MEDS: cefTRIAXone SODIUM 1,000 MG in DEXTROSE 5% 50 ML IV SCH (20:11)
[2020-01-24] MEDS: FLUTICASONE PROPIONATE NA SPR 16 GM BTL SCH (20:12)
[2020-01-24] MEDS: MIRTAZAPINE SOLTAB 15 MG PO SCH (20:13)
[2020-01-24] MEDS: ROSUVASTATIN CALCIUM 5 MG TAB PO SCH (20:14)
[2020-01-24] MEDS: MONTELUKAST SODIUM 10 MG TABLET PO SCH (20:14)
[2020-01-25] MEDS: MELATONIN 3 MG TAB PO PRN (00:13)
[2020-01-25] MEDS: ZOLPIDEM TARTRATE 10 MG TAB PO SCH ×2 (00:13→23:41)
[2020-01-25] MEDS: tiZANidine HCL 4 MG TABLET PO PRN ×4 (00:14→17:31)
[2020-01-25] MEDS: LABETALOL HCL 300 MG TAB PO SCH ×5 (00:14→23:41)
[2020-01-25] MEDS: NORMOSOL-R 1,000 ML IV SCH ×5 (01:26→20:06)
[2020-01-25] MEDS: oxyCODONE HCL IR 5 MG TAB (IMMEDIATE RELEASE) PO PRN ×4 (05:56→23:41)
[2020-01-25 07:10] LABS: Albumin Level 2.6 gm/dl (3.4-5.0); BUN Creatinine Ratio 14.5 (10-20); Calcium 8.6 mg/dl (8.5-10.1); Creatinine Clr Calc Pharmacy 15.7 ml/min; Est GFR (African American) 17.1; Est GFR (Non-African American) 14.8; Potassium 3.3 mmol/L (3.5-5.1)
[2020-01-25 07:11] LABS: Albumin Globulin Ratio 0.8 (0.9-2); Globulin 3.2 gm/dl (2.5-4.0); Total Protein 5.8 gm/dl (6.4-8.2)
[2020-01-25] MEDS: CIMETIDINE PO PRN ×2 (08:07→21:19)
[2020-01-25] MEDS: MULTIVITAMIN TAB PO SCH (08:08)
[2020-01-25] MEDS: cycloSPORINE 25 MG CAP PO SCH ×2 (08:08→21:12)
[2020-01-25] MEDS: traMADol HCL 50 MG TABLET PO SCH ×3 (08:09→21:34)
[2020-01-25] MEDS: ASCORBIC ACID 500 MG TAB PO SCH ×2 (08:09→21:12)
[2020-01-25] MEDS: allopurinoL 100 MG TAB PO SCH (08:09)
[2020-01-25] MEDS: ADVANCED PROBIOTIC 1250 MG CAPSULE PO SCH (08:09)
[2020-01-25] MEDS: predniSONE 2.5 MG TAB PO SCH (08:10)
[2020-01-25] MEDS: SENNA 8.6 MG TAB PO SCH (08:10)
[2020-01-25] MEDS: PANTOprazole 40 MG TAB PO SCH ×2 (08:10→21:14)
[2020-01-25] MEDS: busPIRone 5 MG TAB PO SCH ×3 (08:10→21:13)
[2020-01-25] MEDS: ASPIRIN 81 MG CHEW PO SCH (08:10)
[2020-01-25] MEDS: POLYETHYLENE (MIRALAX) 17 GM PACK PO SCH (08:11)
[2020-01-25] MEDS: CETIRIZINE HCL 10 MG TABLET PO SCH (08:12)
[2020-01-25] MEDS: FOLIC ACID 1 MG TAB PO SCH (08:12)
[2020-01-25] MEDS: amLODIPine BESYLATE 5 MG TAB PO SCH (08:14)
[2020-01-25] MEDS ORDERED: POTASSIUM CHLORIDE CRTAB 20 MEQ TABCR PO STA (08:42)
--- NOTE | 2020-01-25 09:00 | Hospitalist Progress Note ---
Date of Service January 25, 2020 Assessment & Plan (1) DESIREE (acute kidney injury): -patient presented to ED on 01/21/2020 -as per admission History and Physical "This 49-year-old female with past medical history significant for history of renal transplant in early 90s, hemolytic anemia, chronic leukopenia, thrombocytopenia, history of recurrent UTIs, history of hypertension, history of complete heart block status post pacemaker, pancreatic cyst, hyperlipidemia, non-rheumatic aortic valve insufficiency, status post aortic valve replacement, history of right leg deep venous thrombosis, history of ulcerative colitis, history of nephritis and nephropathy with pathological lesion in kidney, chronic kidney disease, neurofibromatosis, migraines, macular degeneration, chronic pain syndrome, marginal zone lymphoma, cold agglutinin disease, history of aortic root repair. The patient lives with her . The patient was having nausea, vomiting and dizziness since last Sunday, she was diagnosed with UTI and she was prescribed Bactrim for pansensitive E. coli, but since last Sunday, she is not eating and drinking anything because she has a lot of nausea and abdominal discomfort and not moved her bowels because of not eating anything. Denies any fever, chills. Blood pr essure was low, systolic in 70s, 80s in her family doctor's office today and she in spite holding her home medication, amlodipine and clonidine, she was taking labetalol. She was still vomiting, lightheadedness and standing becoming difficult, so the family physician advised to the ER. Here, she was found to have sodium of 126, potassium of 5, creatinine of 9.4, BUN of 119, CO2 17, anion gap of 16. Baseline creatinine around 1.1-1.2. Lactate was 0.2. Urinalysis, trace leukocyte esterase. COVID-19 PCR was negative in the ER. Lipase was elevated at 2000. CAT showing chronic pancreatitis findings and also CT of the abdomen and pelvis also showing some infiltration adjacent to the renal allograft with urothelial thickening, possible infectious process. Chest x-ray was okay. ER talked to Nephrology and recommended to start on half normal saline with bicarbonate drip. The patient wants to stay here today, does not want to transfer to [facility]. She says she is feeling fine, she does not think she needs to be transferred, afebrile. Denies any cough, no chest pain. She has her usual short of breath on exertion. Has some headache, no earache, has cough with postnasal drip. Constipated. Denies any blood in stools or denies any hematuria. No swelling in the legs, no rash. -was initally on 03/13 NS w/ 75 mEq/L sodium bicarb. creatinine downtrending to 6.77 by 01/23/2020 AM labs and then 6.06 by afternoon labs. Patient was then transition to normosol IV fluids -creatinine 3.47 on 01/25/2020. discussed with patient that while there is now significant improvement in her creatinine that these levels are still not normalized, continuing IV fluids. Patient continues to be breathing on room air. no respiratory distress. no chest discomforts. patient can be off telemetry on 01/25/2020 but will continue to have the creatinine watched closely while on IV fluids. -follow any further nephrology recommendations (2) Metabolic acidosis, increased anion gap: -IV fluids as above and trend the labs -as of 01/23/2020 labs, anion gap remains, but metabolic acidosis appears to have improved -anion gap acidosis resolved as of 01/24/2020 and patient switched to IV Normosol by nephrology (3) Hyponatremia: -serum sodium 126 on 01/21/2020 presentation -her outpatient dose of sodium chloride tablets 500 mg BID are being held at this time to prevent GI upset and while monitoring the serum sodium with the IV fluids -serum sodium 135 on 01/23/2020 AM labs Hypertension -admitting physician initially holding home dose amlodipine, clonidine, because of initial concerns for hypotension -resume home dose amlodipine 2.5 mg daily starting on 01/24/2020. Nephrology resumed home dose labetalol -Clonidine remains held as patient off of this medication 1 week prior to hospital presentation - will give if needed based on blood pressures (4) UTI (urinary tract infection): -History of recent urinary tract infection with Bactrim -UA without bacteria on admission -patient has been giving ceftriaxone on admission, continue for now as it is unclear whether perinephric stranding on imaging is from infectious causes or other etiologies - may be reasonable to continue antibiotics until creatinine improves more despite no clear infectious etiology, patient counseled that if there is diarrhea then antibiotics would be held and check C.difficile - so far no diarrhea (5) History of renal transplant: -has right lower quadrant renal allograft. -admission CT scan of abdomen: "There is mild graft hydronephrosis which has been shown on prior exams. There is infiltration adjacent to the graft. There is suspected wall thickening of the right collecting system and right ureter" -there was initial typo in the CT abdomen report on 01/21/2020. Dr. Coburn the radiologist was called by hospitalist who initially asked urology Dr. Campa to look at the imaging - Dr. Coburn reports that there is no ureteral calculus -home dose cyclosporine 150 mg BID has been reduced to 50 mg BID to account for the elevated creatinine and current renal function -continue home dose prednisone 2.5 mg daily Elevated Lipase Chronic Pancreatitis -admission CT scan of abdomen: "Pancreatic calcifications consistent with chronic pancreatitis. No significant change in numerous cystic pancreatic lesions, suboptimally assessed on this exam. No change in appearance of the pancreas." -elevated lipase on presentation -MRCP completed on 01/22/2020 1. No gallstones identified 2. No evidence of intra or extrahepatic biliary ductal dilatation. The common bile duct is the upper limits of normal in size measuring 6 mm 3. No ductal calculi identified 4. Mild ectasia of the proximal pancreatic duct which measures up to 4.3 mm in diameter 5. Innumerable pancreatic cysts 6. Atrophic [place] kidneys with upper pole left renal cysts 7. Right lower quadrant transplant kidney with perinephric stranding. Clinical correlation to exclude infection is recommended 8. Mild splenomegaly -01/23/2020: EGD and EUS did not find any acute problems with biliary ducts. Patient has multiple chronic pancreatic cysts (6) Marginal zone lymphoma: -patient follows with [facility] oncology Dr. Chad Clemons and has been on Ibrutinib (Imbruvica) 280 mg daily -Ibrutinib is being held at this time while assessing the renal function Hyperlipidemia - on statin Gastroesophageal reflux disease -on PPI and H2 kristi Asthma -Continue Singulair. History of hemolytic anemia, cold agglutinin disease -Hemoglobin stable Presence of Pacemaker -Other cardiac history: History of complete heart block with pacemaker, history of aortic root repair, history of non-rheumatic aortic valve insufficiency, status post aortic valve replacement -home dose aspirin resumed on 01/24/2020 since GI procedures completed on 01/23/2020 -has been stable on telemetry, can discontinue telemetry on 01/25/2020 Deep venous thrombosis prophylaxis, sequential compression devices. Admission and Anticipated Discharge Date Admission Date: January 21, 2020 Subjective -creatinine 3.47 on 01/25/2020. discussed with patient that while there is now significant improvement in her creatinine that these levels are still not pramod lized, continuing IV fluids. Patient continues to be breathing on room air. no respiratory distress. no chest discomforts. patient can be off telemetry on 01/25/2020 but will continue to have the creatinine watched closely while on IV fluids. no acute abdomen pain. no dizziness. no shortness of breath. no vomiting. no other symptoms on review of systems. Review of Systems Review of Systems: All systems reviewed & are unremarkable except as noted in Subjective Physical Exam Constitutional: cooperative Eyes: PERRL, conjunctivae normal, anicteric sclerae EOM intact bilaterally ENMT: external ear and nose normal, oropharynx normal Neck: normal visual inspection Respiratory: normal respiratory effort, lungs clear to auscultation Cardiovascular: Rate/Rhythm: regular rate (paced) Gastrointestinal (Abdomen): normal bowel sounds, soft, nontender, no hepatosplenomegaly Percussion/Palpation: abdomen soft Musculoskeletal: Head/Neck/Chest: normocephalic and head atraumatic Neurologic: PERRL, EOMI, accommodation nl, no face palsy, no dysarthria moves all extremities Psychiatric: A+Ox3, euthymic affect Results & Data Results & Data ([facility]) Vital Signs (Past 12 Hours) Vital Signs Temp Pulse Pulse Resp BP BP Pulse Ox 01/25/20 07:14 36.7 C 70 18 132/78 93 01/25/20 04:00 36.8 C 72 16 121/72 93 01/25/20 02:24 70 01/24/20 22:00 37.0 C 68 20 162/92 H 95
--- NOTE | 2020-01-25 13:41 | Nephrology Progress Note ---
Date of Service January 25, 2020 Assessment & Plan (1) DESIREE (acute kidney injury): Stage 3 DESIREE w/ further improvement since yesterday: concern for ATN in setting of n/v/prerenal > ischemic atn. also on bactrim at admission; she is so far responding to IVF plus holding nephrotoxic meds. Presenting creatinine 9.5 on 01/20; baseline creatinine 1.5-1.8 as recently as mid December 2019. no o liguria since admission. infiltration/inflammation adjacent to graft on imaging noted >> monitor but for now no intervention needed > she does have mild generalized TTP over allograft; will -no indication for urgent dialysis -cont lowered cyclosporine dose 50 mg bid d/t DESIREE > will soon need to titrate dose upward -not to have ibrutinib as below -daily bmp -strict I/O -now resolved anion gap metabolic acidosis > cont normosol same rate -she had 40 mEq po K x 1 this am > no further K needed today -cont to hold mag d/t elevated mag -changed diet; no longer low K diet -cont home doses labetalol and cimetidine (2) History of kidney transplant: -severe DESIREE; immunosuppression (cyclosporine dose)reduced d/t DESIREE -no indication for cyclosporine level -cont prednisone (3) Hyponatremia: -on OP salt tabs; hyponatremia resolved here w/ hydration; cont to hold OP salt tabs (4) 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 as OP >> hold for now d/t DESIREE >> this medication has been known to cause severe Desiree and more commonly n/v/abd pain/constipation -I have discussed her care w/ Dr Clemons, her OP food service employee, and he agrees w/ plan to hold ibrutinib; recommend d/c w/o this medication and have pt follow up w/ hematology > advised her to contact Dr Clemons by myG or else to f/u 2-4 wks after d/c to discuss Admission and Anticipated Discharge Date Admission Date: January 21, 2020 Subjective feeling good > ambulatory, moving bowels, no edema, no sob, pain over allograft gone; rest of 12 point ros negative Review of Systems 2 Review of Systems: All systems reviewed & are unremarkable except as noted in HPI & below Physical Exam Constitutional: well developed, well nourished and cooperative; no acute distress Eyes: EOM intact bilaterally ENMT: Ears: no external ear abnormality Nose: no external nose abnormality Mouth: + dry oral mucous membranes Neck: no nuchal rigidity Respiratory: normal respiratory effort Auscultation: lungs clear to auscultation bilaterally and + diminished lung sounds Cardiovascular: Rate/Rhythm: regular rate and regular rhythm Heart Sounds: + murmur Extremities: no edema Gastrointestinal (Abdomen): Inspection/Auscultation: + abnormal bowel sounds (diminished) Percussion/Palpation: abdomen soft; abdomen nontender, abdomen not rigid and no ascites RLQ allograft NT Musculoskeletal: Extremities: strength 5/5 throughout Skin: no rashes, warm and dry Neurologic: dunlap, fluent speech, no tremor Psychiatric: A+Ox3, euthymic affect Insight: good insight Judgement: good judgement Results & Data ([facility]) Vital Signs (Past 12 Hours) Vital Signs Temp Pulse Pulse Resp BP BP Pulse Ox 01/25/20 07:14 36.7 C 70 18 132/78 93 01/25/20 04:00 36.8 C 72 16 121/72 93 01/25/20 02:24 70 Laboratory Results 01/24/20 07:19 01/25/20 06:07
[2020-01-25] MEDS ORDERED: SODIUM CHLORIDE 0.65% NA SOLN 45 ML (OCEAN) ONE (18:24)
[2020-01-25] MEDS: cefTRIAXone SODIUM 1,000 MG in DEXTROSE 5% 50 ML IV SCH (21:10)
[2020-01-25] MEDS: MONTELUKAST SODIUM 10 MG TABLET PO SCH (21:11)
[2020-01-25] MEDS: ROSUVASTATIN CALCIUM 5 MG TAB PO SCH (21:12)
[2020-01-25] MEDS: FLUTICASONE PROPIONATE NA SPR 16 GM BTL SCH (21:14)
[2020-01-25] MEDS: MIRTAZAPINE SOLTAB 15 MG PO SCH (21:14)
[2020-01-25] MEDS: ACETAMINOPHEN 325 MG TAB PO PRN (23:42)
[2020-01-26] MEDS: tiZANidine HCL 4 MG TABLET PO PRN ×2 (00:38→06:40)
[2020-01-26] MEDS: NORMOSOL-R 1,000 ML IV SCH ×2 (00:39→05:10)
[2020-01-26] MEDS: LABETALOL HCL 300 MG TAB PO SCH ×2 (05:10→11:12)
[2020-01-26] MEDS: oxyCODONE HCL IR 5 MG TAB (IMMEDIATE RELEASE) PO PRN (06:40)
[2020-01-26] MEDS: CETIRIZINE HCL 10 MG TABLET PO SCH (07:43)
[2020-01-26] MEDS: cycloSPORINE 25 MG CAP PO SCH (07:43)
[2020-01-26] MEDS: CIMETIDINE PO PRN (07:43)
[2020-01-26] MEDS: ASCORBIC ACID 500 MG TAB PO SCH (07:44)
[2020-01-26] MEDS: ASPIRIN 81 MG CHEW PO SCH (07:45)
[2020-01-26] MEDS: SENNA 8.6 MG TAB PO SCH (07:45)
[2020-01-26] MEDS: busPIRone 5 MG TAB PO SCH (07:45)
[2020-01-26] MEDS: predniSONE 2.5 MG TAB PO SCH (07:46)
[2020-01-26] MEDS: allopurinoL 100 MG TAB PO SCH (07:46)
[2020-01-26] MEDS: ADVANCED PROBIOTIC 1250 MG CAPSULE PO SCH (07:47)
[2020-01-26] MEDS: FOLIC ACID 1 MG TAB PO SCH (07:47)
[2020-01-26] MEDS: MULTIVITAMIN TAB PO SCH (07:47)
[2020-01-26] MEDS: PANTOprazole 40 MG TAB PO SCH (07:47)
[2020-01-26] MEDS: amLODIPine BESYLATE 5 MG TAB PO SCH ×2 (07:48→07:53)
[2020-01-26] MEDS: traMADol HCL 50 MG TABLET PO SCH (07:49)
[2020-01-26 08:03] LABS: Albumin Globulin Ratio 0.8 (0.9-2); Albumin Level 2.7 gm/dl (3.4-5.0); BUN Creatinine Ratio 12.5 (10-20); Bilirubin,Total 0.8 mg/dl (0.2-1); Calcium 8.7 mg/dl (8.5-10.1); Creatinine Clr Calc Pharmacy 19.5 ml/min; Est GFR (African American) 22.3; Est GFR (Non-African American) 19.3; Globulin 3.6 gm/dl (2.5-4.0); Potassium 3.8 mmol/L (3.5-5.1); Total Protein 6.3 gm/dl (6.4-8.2)
[2020-01-26] MEDS: POLYETHYLENE (MIRALAX) 17 GM PACK PO SCH (08:14)
[2020-01-26] MEDS: ACETAMINOPHEN 325 MG TAB PO PRN (11:15)
--- NOTE | 2020-01-26 11:32 | Progress Notes ---
DATE: 01/26/2020 NEPHROLOGY PROGRESS NOTE SUBJECTIVE: Overnight, no new issues. She is eating and drinking normally. She is completely asymptomatic without any nausea, vomiting, belly pain, or diarrhea. OBJECTIVE: VITAL SIGNS: Vital signs are very stable. Blood pressure 136/84, pulse rate 72, temperature 36.6, 95% on room air. HEENT: Mucous membranes moist. NECK: Supple. No jugular venous distention. CHEST: Bilateral clear to auscultation. CARDIOVASCULAR: S1, S2 regular. ABDOMEN: Soft, nontender. EXTREMITIES: Show no edema. LABORATORY TEST: From this morning shows creatinine is trending down and is now down to 2.79, BUN is 35, sodium 137, potassium 3.8. Hemoglobin is 10.4, WBC count 9000, platelet count 247. ASSESSMENT: A 49-year-old female status post kidney transplant in 1990 with a baseline allograft function, creatinine of 1.8, admitted with severe acute renal failure. PLAN AND RECOMMENDATIONS: 1. At this time, she can be discharged as she is eating and drinking completely normally and has completely normal vital signs, no major electrolyte or fluid issues. She is making lots of urine and made 4800 mL of urine yesterday. She really wants to go home and can be discharged at this time. 2. She needs to have a CBC and renal panel either Sunday or at her primary care doctor's office. 3. Discharge without her chemotherapy, ibrutinib. 4. She needs to follow with nephrology within 1 week as well as frame operator for further decision regarding her marginal zone lymphoma. 5. We will discharge her on cyclosporine 100 twice daily, which is a slight reduction from her previous dose.
--- NOTE | 2020-01-26 11:39 | Discharge Summary ---
Date of Service January 26, 2020 Admission HPI Per Admitting Provider DATE OF ADMISSION: 01/21/2020 CHIEF COMPLAINT: Nausea, dehydration, hypertension, acute kidney injury. HISTORY OF PRESENT ILLNESS: This 49-year-old female with past medical history significant for history of renal transplant in early 90, hemolytic anemia, chronic leukopenia, thrombocytopenia, history of recurrent UTIs, history of hypertension, history of complete heart block status post pacemaker, pancreatic cyst, hyperlipidemia, non-rheumatic aortic valve insufficiency, status post aortic valve replacement, history of right leg deep venous thrombosis, history of ulcerative colitis, history of nephritis and nephropathy with pathological lesion in kidney, chronic kidney disease, neurofibromatosis, migraines, macular degeneration, chronic pain syndrome, marginal zone lymphoma, cold agglutinin disease, history of aortic root repair. The patient lives with her . The patient was having nausea, vomiting and dizziness since last Sunday, she was diagnosed with UTI and she was prescribed Bactrim for pansensitive E. coli, but since last Sunday, she is not eating and drinking anything because she has a lot of nausea and abdominal discomfort and not moved her bowels because of not eating anything. Denies any fever, chills. Blood pressure was low, systolic in 70s, 80s in her family doctor's office today and she in spite holding her home medication, amlodipine and clonidine, she was taking labetalol. She was still vomiting, lightheadedness and standing becoming difficult, so the family physician advised to the ER. Here, she was found to have sodium of 126, potassium of 5, creatinine of 9.4, BUN of 119, CO2 17, anion gap of 16. Baseline creatinine around 1.1-1.2. Lactate was 0.2. Urinalysis, trace leukocyte esterase. COVID-19 PCR was negative in the ER. Lipase was elevated at 2000. CAT showing chronic pancreatitis findings and also CT of the abdomen and pelvis also showing some infiltration adjacent to the renal allograft with urothelial thickening, possible infectious process. Chest x-ray was okay. ER talked to Nephrology and recommended to start on half normal saline with bicarbonate drip. The patient wants to stay here today, does not want to transfer to [facility] [address]. She says she is feeling fine, she does not think she needs to be transferred, afebrile. Denies any cough, no chest pain. She has her usual short of breath on exertion. Has some headache, no earache, has cough with postnasal drip. Constipated. Denies any blood in stools or denies any hematuria. No swelling in the legs, no rash. Admission Exam Per Admitting Provider PHYSICAL EXAMINATION: GENERAL: The patient is of moderate build, not in acute distress. VITAL SIGNS: Temperature 36.5, pulse 72, respiratory rate 20, blood pressure 126/77, oxygen 96% on room air. HEENT: Pupils equal, round, and reactive to light. Oral mucosa moist. NECK: No JVD, no neck masses. CARDIOVASCULAR: S1, S2 heard, regular rate and rhythm, no murmur, no gallop. RESPIRATORY SYSTEM: Normal AP diameter. No accessory muscle use. No wheezing, no crackles. ABDOMEN: Soft, bowel sounds present. Mild abdominal discomfort. No guarding, no rigidity. No distention. CENTRAL NERVOUS SYSTEM: Cranial nerves II through XII grossly intact, nonfocal. EXTREMITIES: No edema, no erythema. Principal Diagnosis DESIREE (acute kidney injury) Metabolic acidosis, increased anion gap Hyponatremia Elevated Lipase History of renal transplant, has right lower quadrant renal allograft Marginal zone lymphoma Discharge Exam Constitutional cooperative Eyes PERRL, conjunctivae normal, anicteric sclerae EOM intact bilaterally ENMT external ear and nose normal, oropharynx normal Neck normal visual inspection Respiratory normal respiratory effort, lungs clear to auscultation Cardiovascular Rate/Rhythm: regular rate (paced) Gastrointestinal (Abdomen) normal bowel sounds, soft, nontender, no hepatosplenomegaly Percussion/Palpation: abdomen soft Musculoskeletal Head/Neck/Chest: normocephalic and head atraumatic Neurologic PERRL, EOMI, accommodation nl, no face palsy, no dysarthria moves all extremities Psychiatric A+Ox3, euthymic affect Discharge Data Allergies Allergy/AdvReac Type Severity Reaction Status Date / Time hydralazine Allergy Severe Hives Verified 01/21/20 22:09 morphine Allergy Severe Hives Verified 01/21/20 22:09 nitroglycerin AdvReac Severe Migraine Verified 01/21/20 22:09 valacyclovir AdvReac Severe Vomiting Verified 01/21/20 22:09 Consultations 01/21/20 21:10 ED Decision to Admit Stat 01/21/20 23:52 Consult Case Management - Discharge Planning Routine 01/22/20 08:00 Consult Gastroenterology Routine Consult Nephrology Routine Procedures Performed Operation Date: 01/23/20 07:00 Actual Procedures s Endoscopic Ultrasonography Upper - Baltazar Rosales MD p Esophagogastroduodenoscopy - Baltazar Rosales MD Operation Date: 01/23/20 15:30 <No data on this case meets the specified criteria> Ordered Studies 01/21/20 17:19 CT abd pelvis wo con Stat 01/22/20 09:34 MR MRCP Routine 01/23/20 10:12 US upper EUS PACS images Routine Hospital Course (1) DESIREE (acute kidney injury): -patient presented to ED on 01/21/2020 -as per admission History and Physical "This 49-year-old female with past medical history significant for history of renal transplant in early , hemolytic anemia, chronic leukopenia, thrombocytopenia, history of recurrent UTIs, history of hypertension, history of complete heart block status post pacemaker, pancreatic cyst, hyperlipidemia, non-rheumatic aortic valve insufficiency, status post aortic valve replacement, history of right leg deep venous thrombosis, history of ulcerative colitis, history of nephritis and nephropathy with pathological lesion in kidney, chronic kidney disease, neurofibromatosis, migraines, macular degeneration, chronic pain syndrome, marginal zone lymphoma, cold agglutinin disease, history of aortic root repair. The patient lives with her . The patient was having nausea, vomiting and dizziness since last Sunday, she was diagnosed with UTI and she was prescribed Bactrim for pansensitive E. coli, but since last Sunday, she is not eating and drinking anything because she has a lot of nausea and abdominal discomfort and not moved her bowels because of not eating anything. Denies any fever, chills. Blood p ressure was low, systolic in 70s, 80s in her family doctor's office today and she in spite holding her home medication, amlodipine and clonidine, she was taking labetalol. She was still vomiting, lightheadedness and standing becoming difficult, so the family physician advised to the ER. Here, she was found to have sodium of 126, potassium of 5, creatinine of 9.4, BUN of 119, CO2 17, anion gap of 16. Baseline creatinine around 1.1-1.2. Lactate was 0.2. Urinalysis, trace leukocyte esterase. COVID-19 PCR was negative in the ER. Lipase was elevated at 2000. CAT showing chronic pancreatitis findings and also CT of the abdomen and pelvis also showing some infiltration adjacent to the renal allograft with urothelial thickening, possible infectious process. Chest x-ray was okay. ER talked to Nephrology and recommended to start on half normal saline with bicarbonate drip. The patient wants to stay here today, does not want to transfer to [facility] [address]. She says she is feeling fine, she does not think she needs to be transferred, afebrile. Denies any cough, no chest pain. She has her usual short of breath on exertion. Has some headache, no earache, has cough with postnasal drip. Constipated. Denies any blood in stools or denies any hematuria. No swelling in the legs, no rash. -was initally on 03/13 NS w/ 75 mEq/L sodium bicarb. creatinine downtrending to 6.77 by 01/23/2020 AM labs and then 6.06 by afternoon labs. Patient was then transition to normosol IV fluids -creatinine 3.47 on 01/25/2020. discussed with patient that while there is now significant improvement in her creatinine that these levels are still not normalized, continuing IV fluids. Patient continues to be breathing on room air. no respiratory distress. no chest discomforts. patient can be off telemetry on 01/25/2020 but will continue to have the creatinine watched closely while on IV fluids. -01/26/2020 discharge to home at request by patient and cleared by nephrology physician Dr. David for discharge discharge pharmacy [facility] at [address] [place] [address] in [place], [place] of cyclosporine to be 100 mg BID as per nephrology Dr. Frankie Ryder from nephrology "have discussed her care w/ Dr Clemons, her OP pharmaceutical physician, and he agrees w/ plan to hold ibrutinib; recommend d/c w/o this medication and have pt follow up w/ hematology > advised her to contact Dr Clemons by myG or else to f/u 2-4 wks after d/c to discuss" Patient will need to ensure appointment with hematology Dr. Clemons and avoid IMBRUVICA (ibrutinib) until follow up with Dr. Clemons Patient will need to have kidney function serum electrolytes with primary care doctor and nephrology clinics. Patient may hold off sodium tablets for now. discharge labs on 01/26/2020 of serum sodium 138, serum potassium 3.8, creatinine of 2.79 (2) Metabolic acidosis, increased anion gap: -IV fluids as above and trend the labs -as of 01/23/2020 labs, anion gap remains, but metabolic acidosis appears to have improved -anion gap acidosis resolved as of 01/24/2020 and patient switched to IV Normosol by nephrology, IV fluids stopped on 01/26/2020 (3) Hyponatremia: -serum sodium 126 on 01/21/2020 presentation -her outpatient dose of sodium chloride tablets 500 mg BID are being held at this time to prevent GI upset and while monitoring the serum sodium with the IV fluids -serum sodium 138 on 01/24/2020 AM labs. sodium tablets can be stopped at home as well. patient to have labs drawn as outpatient Hypertension -admitting physician initially holding home dose amlodipine, clonidine, because of initial concerns for hypotension -resume home dose amlodipine 2.5 mg daily starting on 01/24/2020. Nephrology resumed home dose labetalol -Clonidine remains held as patient off of this medication 1 week prior to hospital presentation. clonidine not needed at this time (4) UTI (urinary tract infection): -History of recent urinary tract infection with Bactrim -UA without bacteria on admission -patient has been giving ceftriaxone on admission, was continued while inpatient because it was unclear whether perinephric stranding on imaging is from infectious causes or other etiologies. IV ceftriaxone stopped on 01/16/2020 and no further antibiotics as renal function improved and no current signs of fever or infection (5) History of renal transplant: -has right lower quadrant renal allograft. -admission CT scan of abdomen: "There is mild graft hydronephrosis which has been shown on prior exams. There is infiltration adjacent to the graft. There is suspected wall thickening of the right collecting system and right ureter" -there was initial typo in the CT abdomen report on 01/21/2020. Dr. Coburn the radiologist was called by hospitalist who initially asked urology Dr. Campa to look at the imaging - Dr. Coburn reports that there is no ureteral calculus -home dose cyclosporine 150 mg BID has been reduced to 50 mg BID to account for the elevated creatinine and current renal function -continue home dose prednisone 2.5 mg daily Elevated Lipase Chronic Pancreatitis -admission CT scan of abdomen: "Pancreatic calcifications consistent with chronic pancreatitis. No significant change in numerous cystic pancreatic lesions, suboptimally assessed on this exam. No change in appearance of the pancreas." -elevated lipase on presentation -MRCP completed on 01/22/2020 1. No gallstones identified 2. No evidence of intra or extrahepatic biliary ductal dilatation. The common bile duct is the upper limits of normal in size measuring 6 mm 3. No ductal calculi identified 4. Mild ectasia of the proximal pancreatic duct which measures up to 4.3 mm in diameter 5. Innumerable pancreatic cysts 6. Atrophic [place] kidneys with upper pole left renal cysts 7. Right lower quadrant transplant kidney with perinephric stranding. Clinical correlation to exclude infection is recommended 8. Mild splenomegaly -01/23/2020: EGD and EUS did not find any acute problems with biliary ducts. Patient has multiple chronic pancreatic cysts (6) Marginal zone lymphoma: -patient follows with [facility] oncology Dr. Chad Clemons and has been on Ibrutinib (Imbruvica) 280 mg daily -Ibrutinib is being held at this time and to be avoided as per nephrology, patient to be re-assessed by Dr. Clemons as outpatient on future care options in r egards to the lymphoma Hyperlipidemia - on statin Gastroesophageal reflux disease -on PPI and H2 kristi Asthma -Continue Singulair. History of hemolytic anemia, cold agglutinin disease -Hemoglobin stable Presence of Pacemaker -Other cardiac history: History of complete heart block with pacemaker, history of aortic root repair, history of non-rheumatic aortic valve insufficiency, status post aortic valve replacement -home dose aspirin resumed on 01/24/2020 since GI procedures completed on 01/23/2020 -has been stable on telemetry,discontinued telemetry on 01/25/2020 Total Time Total Time Spent Total Time Spent (In Minutes): 40 minutes Total Time Includes: Examination of the Patient, Discharge Planning, Medication Reconciliation and Communication With Other Providers Discharge Plan Discharge Items Patient Disposition: Home - Self-Care Reason For Visit: DEHYDRATION/HYPOTENSION Discharge Diagnosis: DESIREE (acute kidney injury) Metabolic acidosis, increased anion gap Hyponatremia Elevated Lipase History of renal transplant, has right lower quadrant renal allograft Marginal zone lymphoma Condition on Discharge: Good Activity: Resume your previous activity Non-emergency contact: Primary Care Provider and Ordnance Technician Call non-emergency contact if: you have any medication questions Follow-up/Referrals: Nagi David MD [Surgeon] - 02/19/20 3:00 pm Stuart Ravi MD [Primary Care Provider] - (Date & Time 01/30/2020 11:20 AM Provider Stuart Ravi MD Department [facility] ) Diet: Regular Addtl Attending Provider Instructions: discharge to home at request by patient and cleared by nephrology physician Dr. David for discharge discharge pharmacy [facility] at [address] [place] [address] in [place], [place] of cyclosporine to be 100 mg BID as per nephrology Dr. Frankie Ryder from nephrology "have discussed her care w/ Dr Clemons, her OP pharmaceutical physician, and he agrees w/ plan to hold ibrutinib; recommend d/c w/o this medication and have pt follow up w/ hematology > advised her to contact Dr Clemons by myG or else to f/u 2-4 wks after d/c to discuss" Patient will need to ensure appointment with hematology Dr. Clemons and avoid IMBRUVICA (ibrutinib) until follow up with Dr. Clemons Patient will need to have kidney function serum electrolytes with primary care doctor and nephrology clinics. Patient may hold off sodium tablets for now. discharge labs on 01/26/2020 of serum sodium 138, serum potassium 3.8, creatinine of 2.79 upcoming appointments so far 01/27/2020 8:55 AM Provider [facility], [facility], [facility] 01/27/2020 2:30 PM Provider Pacer Darrel [facility] Department Cardiology, [facility] 01/30/2020 9:15 AM Provider [facility] Hem[facility]Onc [facility] Department Pharmacy Hematology Oncology [facility] 01/30/2020 11:20 AM Provider Stuart Ravi MD Department [facility] 02/03/2020 9:25 AM Provider [facility], [facility] 02/19/2020 3:00 PM Provider Nagi David MD Department Nephrology, [facility] 03/18/2020 11:20 AM Provider MARIA ELENA Valencia-C Department Dermatology, [place] 03/25/2020 1:30 PM Provider [facility] Department Pharmacy, [facility] 04/21/2020 1:40 PM Provider Nagi David MD Department Nephrology, [facility] 05/03/2020 2:45 PM Provider Pacer [facility] Department Cardiology, [facility] 05/12/2020 3:15 PM Provider Chad Clemons MD Department Hematology/Oncology [facility] Pending Studies at Discharge: No Stand-Alone Forms: My [facility], Smoking Cessation Medications and DC Order Prescriptions: New cyclosporine modified [Neoral] 25 mg Capsule 100 mg PO BID 30 Days Qty: 240 RF: 0 Continued Ajovy Syringe 225 mg/1.5 mL syringe 225 mg subcut MONTHLY 30 Days Qty: 1.5 RF: 5 rimegepant [Nurtec ODT] 75 mg tablet,disintegrating 0 mg PO UD RF: 0 rosuvastatin [Crestor] 5 mg tablet 5 mg PO QPM RF: 0 aspirin [Adult Aspirin Regimen] 81 mg tablet,delayed release (DR/EC) 81 mg PO QAM RF: 0 cimetidine 400 mg tablet 400 mg PO BID RF: 0 melatonin 5 mg capsule 10 - 15 mg PO HS RF: 0 rizatriptan 10 mg tablet 10 mg PO Q2H MDD 20 mg PRN (Reason: migraine) Qty: 36 RF: 3 multivitamin Tablet 1 tab PO QAM RF: 0 prednisone 2.5 mg Tablet 2.5 mg PO QAM RF: 0 biotin 10,000 mcg Capsule 10,000 mcg PO QAM RF: 0 lorazepam 1 mg tablet 1 mg PO Q8 PRN (Reason: Anxiety) RF: 0 ascorbic acid (vitamin C) 500 mg Capsule 1,000 mg PO BID RF: 0 folic acid 1 mg Tablet 1 mg PO QAM RF: 0 [place] 3-6-9 Fatty Acids 400-400-200 mg Capsule 1 cap PO DAILY RF: 0 cetirizine 10 mg Tablet 10 mg PO QAM RF: 0 buspirone 5 mg tablet 5 mg PO TID RF: 0 fluticasone propionate [Flonase Allergy Relief] 50 mcg/actuation spray,suspension 2 spray INTRANASAL HS RF: 0 pantoprazole [Protonix] 40 mg tablet,delayed release (DR/EC) 40 mg PO BID RF: 0 sodium chloride 1 gram tablet 500 mg PO BID RF: 0 zolpidem 10 mg tablet 5 - 10 mg PO HS RF: 0 labetalol 300 mg Tablet 300 mg PO QID RF: 0 Probiotic Blend 2 billion cell-50 mg Capsule 1 cap PO HS RF: 0 montelukast 10 mg tablet 10 mg PO QPM RF: 0 tramadol 100 mg Tablet Extended Release 24 Hr 100 mg PO TID RF: 0 allopurinol 100 mg Tablet 200 mg PO QAM RF: 0 sennosides [senna] 8.6 mg Tablet 8.6 mg PO DAILY RF: 0 polyethylene glycol 3350 [Miralax] 17 gram Powder In Packet 17 g PO DAILY RF: 0 tizanidine [Zanaflex] 4 mg tablet 4 mg PO Q6 PRN (Reason: Muscle Spasm) RF: 0 ondansetron HCl [Zofran] 4 mg tablet 4 mg PO Q8 PRN (Reason: Pain) RF: 0 amlodipine 2.5 mg tablet 2.5 mg PO DAILY RF: 0 calcium carbonate-vitamin D3 600 mg(1,500mg) -200 unit Tablet 1 tab PO DAILY RF: 0 diphenhydramine HCl [Benadryl] 25 mg Capsule 25 mg PO Q6 PRN (Reason: Itching) RF: 0 promethazine 25 mg tablet 25 mg PO Q6 PRN (Reason: Nausea) RF: 0 mirtazapine 45 mg tablet 45 mg PO HS RF: 0 oxycodone [Roxicodone] 5 mg tablet 5 mg PO Q6 PRN (Reason: Severe Pain (Scale Score 7-10)) RF: 0 Probiotic 3 billion cell Capsule 0 mmu cells PO DAILY RF: 0 magnesium chloride 64 mg magnesium Tablet 64 mg PO DAILY RF: 0 Discontinued clonidine HCl 0.1 mg tablet 0.1 mg PO QID RF: 0 sulfamethoxazole-trimethoprim 800-160 mg tablet 1 tab PO BID RF: 0 cyclosporine modified 50 mg capsule 150 mg PO BID RF: 0 Imbruvica 280 mg tablet 280 mg PO QPM RF: 0 Discharge Orders: Discharge Order (Routine); Ordered 01/26/20 Ordered By: Osmin Bonilla Admission Data Admit Date/Time: 01/21/20 22:21 Attending Provider: Osmin Bonilla Admit Provider: Vasyl Phillip Primary Care Provider: Stuart Ravi Other Providers: Vasyl Phillip ; Jese Cook ; Nagi David
== END 2020-01-26 12:44 | disposition home or self-care (01) | DRG 682 ==
LOC: ED 16:03 → 2S 22:21 → 2N 01-23 09:19

== ENCOUNTER 2022-01-27 18:48 | Inpatient (IN) ==
[2022-01-27] MEDS ORDERED: SODIUM CHLORIDE 0.9% 250 ML IV PRN (19:29)
--- NOTE | 2022-01-27 19:33 | Emergency Department Note ---
Impression & Plan Antineoplastic chemotherapy induced anemia, Symptomatic anemia, Immunocompromised, Pancytopenia ED Provider Note Name: CARLITO GRAY Age: 51 Sex: F Arrives Via: Walk-In Informant: Patient, ED Provider: Corey Banks MD Chief Complaint: Weakness Impression: As per impressions above Medical Decision Making: Pleasant 51-year-old female with quite complex past medical history including renal transplant, lymphoma on chemotherapy amongst multiple other medical history arrives for evaluation of significant weakness over the last few weeks. She been seen in the outpatient clinic for routine labs and was noted to be severely anemic and sent to ER for management. Patient has a history of this happening previously though it been a few years due to some medication changes she had been quite stable. She is had no other bleeding/black or bloody stools nor epigastric discomfort. Patient has had previous blood transfusions and agrees with transfusion understanding the risks and benefits. Given mild neutropenia and she recently received chemo and is on daily chemo meds I do feel it would be indicated to irradiate the blood. She was initially typed and crossed for 2 units but only 1 unit was planned to be given initially. The [facility] pitalist was consulted for further management given this is a Sunday evening there is no ability to set up outpatient transfusion in the next few days and the acuity of this anemia is relatively new and further work-up may be required. Prior Medical Record and Triage/Nursing Notes reviewed by Me Differentials:Infection, dehydration, metabolic abnormality, hyp o/hyperglycemia, electrolyte disturbance, anemia, hypoxia, cardiac sources, intracerebral event, toxicologic, neurologic, as well as other pathologies. Vital Signs: reviewed and remarkable for no significant abnormalities Interventions: 1 unit PRBC Labs:Reviewed and remarkable for significant anemia with pancytopenia Consults:Dr Scot Hilton hospitalist Plan: Disposition:Hospitalization. Condition: Good History of Present Illness:51-year-old female arrives for evaluation of weakness. Patient with worsening weakness over the last few weeks. She has a long history of renal transplant on CellCept, B-cell lymphoma on chemotherapy, multiple other comorbidities including previous aortic valve replacement. She is currently on chemo and notes worsening weakness over the last week or 2. She had her regularly scheduled laboratory work-up by her PCP this morning and was noted to be severely anemic and sent to the ER for hospitalization and transfu anthony. Patient denies any chest pain, shortness of breath, syncope, abdominal pain, black or bloody stools, bleeding, bruising, urinary symptoms, diarrhea, leg pain, swelling or any other concerning signs or symptoms. She says she has been urinating well and has no other concerns. She does note she is very weak and fatigued. Anytime she gets up and walks around she just feels too tired. Sitting down makes her feel a bit better. No medications prior to arrival. She has no history of stomach ulcers and is chronically on prednisone 2.5 mg p.o. but does take an antacid daily. She is on no Eliquis or other blood thinners. ROS: See above HPI for pertinent positives & negatives. A total of 10 systems reviewed and were otherwise negative. Past Medical History:See Below Past Surgical History:See Below Family History:See Below Social History:See Below Home Medications:See Below Allergies:Hydralazine, morphine, nitroglycerin, valacyclovir Vitals:Blood Pressure: 124/70, Pulse 72, RR 18, T 36.7C, O2 95% on RA Physical Exam: GENERAL: Patient is tired/pale appearing and in mild distress. EYES: Pale conjunctiva, unremarkable pupils. ENT: Mucous membranes moist, no nasal congestion. NECK: No masses appreciated, nomeningismus, trachea is midline. RESPIRATORY: No dyspnea. Clear to auscultation and equal bilaterally. No wheeze, no rhonchi. CARDIOVASCULAR: Regular rate and rhythm.Systolic murmur GASTROINTESTINAL: Abdomen soft, non-tender, no peritonitis.Bowel sounds positive.No masses appreciated. BACK: No midline tenderness, no CVA tenderness EXTREMITIES: Normal motion all extremities, no cyanosis, no edema. NEUROLOGIC: Alert and oriented, no acute motor or sensory deficits, no focal weakness, cranial nerves grossly intact. SKIN: No rash, no jaundice, no diaphoresis. PSYCH: Appropriate GCS: 15 ED Course: Times/Reassessments: Stable throughout awaiting crossmatch and agreeable to hospitalization Corey Banks MD Past Med/Surg History Medical History Acute hyponatremia Acute pancreatitis Acute UTI Anxiety Aortic regurgitation Autoimmune hemolytic anemia B-cell lymphoma Carcinoma in situ Cervicalgia Chronic back pain Chronic pancreatitis CKD (chronic kidney disease), stage III Dehydration Depression Dyslipidemia ESBL (extended spectrum beta-lactamase) producing bacteria infection Essential hypertension Gastroparesis GERD (gastroesophageal reflux disease) History of DVT (deep vein thrombosis) History of herpes zoster History of membranous glomerulonephritis History of pericarditis History of renal calculi Hypertension Hypertensive heart disease Leukopenia Macular degeneration Marginal zone lymphoma Migraine headache Nausea and vomiting after administration of anesthetic agent Neurofibromatosis Pancreatic cyst Recurrent UTI Renal transplant recipient Ulcerative colitis UTI (urinary tract infection) Surgical History Cardiac pacemaker in situ H/O prior ablation treatment History of biopsy History of cardiac cath History of chest tube placement History of colonoscopy History of cystoscopy History of esophagogastroduodenoscopy (EGD) History of lithotripsy History of renal transplant History of tonsillectomy and adenoidectomy History of tooth extraction History of wisdom tooth extraction Status post aortic valve replacement with bioprosthetic valve Status post -donor kidney transplantation Status post living-donor kidney transplantation Family History Grandmother (Maternal) Coronary heart disease Family history of diabetes mellitus Grandfather (Paternal) Coronary heart disease Mother Kidney donor Other No family history of adverse response to anesthesia No family history of kidney disease Social History Smoking Status: Former smoker Tobacco Type: Cigarettes Second Hand Exposure: No; Hx Alcohol Use: No Hx Substance Use: No Preferred Language: Haitian Communication Ability: Effective Blueprinter Required: No Beliefs That Will Affect Care: [facility] marital status: Current Living Situation: Spouse Current Living Situation Comment: Feels Safe at Home: Yes Assistive Devices: Glasses Allergies Allergies Allergy/AdvReac Type Severity Reaction Status Date / Time hydralazine Allergy Severe Hives Verified 01/13/22 13:39 morphine Allergy Severe Hives Verified 01/13/22 13:39 nitroglycerin AdvReac Severe Migraine Verified 01/13/22 13:39 valacyclovir AdvReac Severe Vomiting Verified 01/13/22 13:39 Home Meds Home Medications Medication Instructions Recorded Confirmed ascorbic acid (vitamin C) 500 mg 1,000 mg PO QID 03/13/18 01/27/22 capsule biotin 10,000 mcg capsule 10,000 mcg PO QAM 03/13/18 01/27/22 cetirizine 10 mg tablet 10 mg PO QAM 03/13/18 01/27/22 folic acid 1 mg tablet 1 mg PO QAM 03/13/18 01/27/22 lorazepam 1 mg tablet 1 mg PO TID PRN Anxiety 03/13/18 01/27/22 multivitamin 1 tab PO QAM 03/13/18 01/27/22 prednisone 2.5 mg tablet 2.5 mg PO QAM 03/13/18 01/27/22 montelukast 10 mg tablet 10 mg PO QAM 10/24/18 01/27/22 buspirone 5 mg tablet 5 mg PO TID PRN Anxiety 01/08/19 01/27/22 cimetidine 400 mg tablet 400 mg PO AMHS 01/08/19 01/27/22 pantoprazole 40 mg tablet,delayed 40 mg PO AMHS 01/08/19 01/27/22 release (Protonix) rosuvastatin 5 mg tablet (Crestor) 5 mg PO QAM 01/08/19 01/27/22 zolpidem 10 mg tablet 10 mg PO HS Sleep 01/08/19 01/27/22 tramadol 100 mg tablet,extended See Rx Instructions .Route .COMPLEX 03/09/19 01/27/22 release 24 hr diphenhydramine HCl 25 mg capsule 25 - 50 mg PO Q6 PRN Itching 01/21/20 01/27/22 (Benadryl) mirtazapine 45 mg tablet 45 mg PO HS 01/21/20 01/27/22 polyethylene glycol 3350 17 gram 17 g PO DAILY PRN severe 01/21/20 01/27/22 oral powder packet (Miralax) constipation amlodipine 2.5 mg tablet 2.5 mg PO QPM 06/15/20 01/27/22 ibrutinib 280 mg tablet 280 mg PO QAM 06/15/20 01/27/22 labetalol 300 mg tablet 300 mg PO TID 09/21/20 01/27/22 sodium bicarbonate 650 mg tablet 1,300 mg PO AMHS 09/21/20 01/27/22 ramelteon 8 mg tablet 8 mg PO HS 01/13/22 01/27/22 L.acidoph-L.rhamn-B.bifidum-B.long 2 tab PO DAILY 01/27/22 01/27/22 12.9 mg (2 billion cell) tablet, DR (Probiotic Acidophilus Kaley) Magic Swizzle 30 ml PO BID 01/27/22 01/27/22 allopurinol 300 mg tablet 300 mg PO QAM 01/27/22 01/27/22 amoxicillin 500 mg capsule 2,000 mg PO ONCE PRN 1 hr prior to 01/27/22 01/27/22 dental procedure aspirin 81 mg chewable tablet 81 mg PO QAM 01/27/22 01/27/22 (Aspirin Childrens) cyanocobalamin (vitamin B-12) 1,000 mcg PO DAILY 01/27/22 01/27/22 1,000 mcg tablet,extended release (Vitamin B-12 ER) cyclosporine modified 50 mg capsule 50 mg PO AMPM 01/27/22 01/27/22 dicyclomine 10 mg capsule 10 mg PO TID PRN Abdominal Pain 01/27/22 01/27/22 erenumab-aooe 70 mg/mL 70 mg subcut MONTHLY 01/27/22 01/27/22 subcutaneous auto-injector (Aimovig Autoinjector) fexofenadine 180 mg tablet 180 mg PO DAILY 01/27/22 01/27/22 glucosamine BFe-F0-Sqftnfdoi 1 tab PO BID 01/27/22 01/27/22 javier 1,500 mg-400 unit-100 mg tablet (Glucosamine Daily Complex) ketotifen fumarate 0.025 % (0.035 1 drp ophthalmic (eye) BID PRN as 01/27/22 01/27/22 %) eye drops direceted magnesium chloride 64 mg 64 mg PO QAM 01/27/22 01/27/22 (magnesium chloride) tablet,delayed release melatonin 10 mg capsule 10 mg PO HS 01/27/22 01/27/22 memantine 5 mg tablet 5 mg PO BIDM 01/27/22 01/27/22 metaxalone 800 mg tablet 800 mg PO TID PRN Muscle Spasm 01/27/22 01/27/22 metoclopramide HCl 5 mg tablet 5 mg PO DAILY PRN Nausea And 01/27/22 01/27/22 Vomiting omega 1-rrs-rgg-fish oil 1,000 mg 3 cap PO DAILY 01/27/22 01/27/22 (120 mg-180 mg) capsule (Fish Oil) ondansetron HCl 4 mg tablet 4 mg PO Q12 PRN Nausea 01/27/22 01/27/22 oxycodone 5 mg tablet 5 mg PO Q6H PRN Pain, Severe 01/27/22 01/27/22 triamcinolone acetonide 55 mcg 2 spray intranasal DAILY 01/27/22 01/27/22 nasal spray aerosol ubrogepant 50 mg tablet (Ubrelvy) 50 mg PO UD PRN Migraine Headache 01/27/22 01/27/22 zinc gluconate 50 mg tablet 100 mg PO DAILY 01/27/22 01/27/22 Previous Rx's Medication Instructions Recorded rimegepant 75 mg disintegrating 75 mg PO .COMPLEX #8 tabs 11/22/21 tablet (Nurtec ODT) Results & Data (ED) Vital Signs Vital Signs - 24 hr 01/27/22 18:58 01/27/22 20:15 01/27/22 21:06 Temperature 36.7 C 36.6 C Temperature Source Temporal Artery Scan Oral Pulse Rate 72 65 86 Pulse Rate from SpO2 Sensor Pulse Rhythm Regular Pulse Strength Normal Respiratory Rate 18 15 17 Respiratory Effort / Characteristics Non-Labored Spontaneous Respiratory Depth Normal Respiratory Pattern Regular Blood Pressure 124/70 124/75 132/80 Blood Pressure Mean 88 91 97 Blood Pressure Position Sitting Pulse Oximetry 95 93 Oxygen Delivery Method Room Air Sepsis Recent Fever Within 48 Hours No Sepsis New/Unexplained Change in Mental Status N/A Sepsis Action Taken by Nursing No Action Required 01/27/22 21:22 01/27/22 21:24 01/27/22 21:39 Temperature 36.7 C 36.7 C 36.7 C Temperature Source Oral Oral Oral Pulse Rate 65 67 67 Pulse Rate from SpO2 Sensor Pulse Rhythm Regular Pulse Strength Normal Respiratory Rate 17 18 18 Respiratory Effort / Characteristics Respiratory Depth Respiratory Pattern Blood Pressure 134/80 151/87 H 170/85 H Blood Pressure Mean 98 108 113 Blood Pressure Position Sitting Semi-fowlers Pulse Oximetry 96 99 98 Oxygen Delivery Method Sepsis Recent Fever Within 48 Hours Sepsis New/Unexplained Change in Mental Status Sepsis Action Taken by Nursing 01/27/22 22:09 01/27/22 20:15 01/27/22 20:30 Temperature 36.7 C Temperature Source Oral Pulse Rate 79 76 Pulse Rate from SpO2 Sensor 75 Pulse Rhythm Pulse Strength Respiratory Rate 18 Respiratory Effort / Characteristics Respiratory Depth Respiratory Pattern Blood Pressure 170/97 H 124/75 146/56 H Blood Pressure Mean 121 91 86 Blood Pressure Position Pulse Oximetry 98 97 Oxygen Delivery Method Sepsis Recent Fever Within 48 Hours Sepsis New/Unexplained Change in Mental Status Sepsis Action Taken by Nursing 01/27/22 20:45 01/27/22 20:46 01/27/22 20:46 Temperature Temperature Source Pulse Rate 66 66 Pulse Rate from SpO2 Sensor 71 66 Pulse Rhythm Pulse Strength Respiratory Rate 20 18 Respiratory Effort / Characteristics Respiratory Depth Respiratory Pattern Blood Pressure 132/80 Blood Pressure Mean 97 Blood Pressure Position Pulse Oximetry 91 98 Oxygen Delivery Method Sepsis Recent Fever Within 48 Hours Sepsis New/Unexplained Change in Mental Status Sepsis Action Taken by Nursing 01/27/22 21:00 01/27/22 21:00 01/27/22 21:15 Temperature Temperature Source Pulse Rate 62 Pulse Rate from SpO2 Sensor Pulse Rhythm Pulse Strength Respiratory Rate 14 Respiratory Effort / Characteristics Respiratory Depth Respiratory Pattern Blood Pressure 132/80 133/75 Blood Pressure Mean 97 94 Blood Pressure Position Pulse Oximetry Oxygen Delivery Method Sepsis Recent Fever Within 48 Hours Sepsis New/Unexplained Change in Mental Status Sepsis Action Taken by Nursing 01/27/22 21:15 01/27/22 21:21 01/27/22 21:21 Temperature Temperature Source Pulse Rate 69 65 Pulse Rate from SpO2 Sensor 69 65 Pulse Rhythm Pulse Strength Respiratory Rate 19 24 Respiratory Effort / Characteristics Respiratory Depth Respiratory Pattern Blood Pressure 134/80 Blood Pressure Mean 98 Blood Pressure Position Pulse Oximetry 97 97 Oxygen Delivery Method Sepsis Recent Fever Within 48 Hours Sepsis New/Unexplained Change in Mental Status Sepsis Action Taken by Nursing 01/27/22 21:30 01/27/22 21:30 01/27/22 21:45 Temperature Temperature Source Pulse Rate 68 90 Pulse Rate from SpO2 Sensor 71 Pulse Rhythm Pulse Strength Respiratory Rate 15 11 L Respiratory Effort / Characteristics Respiratory Depth Respiratory Pattern Blood Pressure 151/87 H Blood Pressure Mean 108 Blood Pressure Position Pulse Oximetry 97 Oxygen Delivery Method Sepsis Recent Fever Within 48 Hours Sepsis New/Unexplained Change in Mental Status Sepsis Action Taken by Nursing 01/27/22 21:46 01/27/22 21:46 01/27/22 22:00 Temperature Temperature Source Pulse Rate 88 67 Pulse Rate from SpO2 Sensor 81 66 Pulse Rhythm Pulse Strength Respiratory Rate 21 16 Respiratory Effort / Characteristics Respiratory Depth Respiratory Pattern Blood Pressure 170/85 H Blood Pressure Mean 113 Blood Pressure Position Pulse Oximetry 95 96 Oxygen Delivery Method Sepsis Recent Fever Within 48 Hours Sepsis New/Unexplained Change in Mental Status Sepsis Action Taken by Nursing 01/27/22 22:13 01/27/22 22:13 01/27/22 22:15 Temperature Temperature Source Pulse Rate 69 Pulse Rate from SpO2 Sensor 69 Pulse Rhythm Pulse Strength Respiratory Rate 18 Respiratory Effort / Characteristics Respiratory Depth Respiratory Pattern Blood Pressure 129/77 141/73 H Blood Pressure Mean 94 95 Blood Pressure Position Pulse Oximetry 97 Oxygen Delivery Method Sepsis Recent Fever Within 48 Hours Sepsis New/Unexplained Change in Mental Status Sepsis Action Taken by Nursing 01/27/22 22:15 01/27/22 22:30 01/27/22 22:30 Temperature Temperature Source Pulse Rate 67 68 Pulse Rate from SpO2 Sensor 67 68 Pulse Rhythm Pulse Strength Respiratory Rate 15 19 Respiratory Effort / Characteristics Respiratory Depth Respiratory Pattern Blood Pressure 170/97 H Blood Pressure Mean 121 Blood Pressure Position Pulse Oximetry 97 98 Oxygen Delivery Method Sepsis Recent Fever Within 48 Hours Sepsis New/Unexplained Change in Mental Status Sepsis Action Taken by Nursing 01/27/22 22:45 01/27/22 22:46 01/27/22 22:46 Temperature Temperature Source Pulse Rate 70 69 Pulse Rate from SpO2 Sensor 70 69 Pulse Rhythm Pulse Strength Respiratory Rate 26 H 19 Respiratory Effort / Characteristics Respiratory Depth Respiratory Pattern Blood Pressure 145/87 H Blood Pressure Mean 106 Blood Pressure Position Pulse Oximetry 97 96 Oxygen Delivery Method Sepsis Recent Fever Within 48 Hours Sepsis New/Unexplained Change in Mental Status Sepsis Action Taken by Nursing 01/27/22 23:09 Temperature 36.4 C L Temperature Source Oral Pulse Rate 65 Pulse Rate from SpO2 Sensor Pulse Rhythm Pulse Strength Respiratory Rate 22 Respiratory Effort / Characteristics Respiratory Depth Respiratory Pattern Blood Pressure 146/82 H Blood Pressure Mean 103 Blood Pressure Position Pulse Oximetry 95 Oxygen Delivery Method Sepsis Recent Fever Within 48 Hours Sepsis New/Unexplained Change in Mental Status Sepsis Action Taken by Nursing Laboratory Data Result diagrams: 01/28/22 06:40 01/28/22 06:40 Lab Results 01/27/22 01/27/22 01/27/22 Range/Units 19:20 19:20 19:20 WBC 3.14 L (4.8-10.8) K/ul RBC 2.05 L (3.93-5.22) M/uL Hgb 6.8 L* (12.0-16.0) g/dl Hct 19.8 L* (34.1-44.9) % MCV 96.6 (80.0-100.0) fL MCH 33.2 (25.0-34.0) pg MCHC 34.3 (32.0-36.0) g/dL RDW Std Deviation 56.2 H (36.4-46.3) fL RDW Coeff of Delia 16.9 H (11.5-14.5) % Plt Count 50 L (130-400) K/uL Immature Gran % (Auto) 0.6 % Neut % (Auto) 43.7 % Lymph % (Auto) 45.5 % [place] % (Auto) 8.9 % Eos % (Auto) 1.0 % Baso % (Auto) 0.3 % Reticulocyte % (Auto) 2.1 H (0.5-2.0) % Neut # (Auto) 1.37 L (1.4-6.5) K/uL Lymph # (Auto) 1.43 (1.2-3.4) K/uL [place] # (Auto) 0.28 (0.24-0.82) K/uL Eos # (Auto) 0.03 (0-0.50) K/uL Baso # (Auto) 0.01 (0-0.2) K/uL Reticulocyte # 0.04 (0.02-0.10) 10^6/uL Immature Gran # (Auto) 0.02 (0.00-0.02) K/uL Platelet Estimate Decreased L (Normal) Polychromasia 1+ Ovalocytes 2+ Sodium 136 (136-145) mmol/L Potassium 4.0 (3.5-5.1) mmol/L Chloride 103 (98-107) mmol/L Carbon Dioxide 22 (21-32) mmol/L Anion Gap 11 (3-11) BUN 35 H (6-23) mg/dl Creatinine 2.17 H (0.6-1.2) mg/dl Est Cr Clr Drug Dosing 30.0 ml/min Est GFR ( Amer) 29.8 ml/min Est GFR (Non-Af Amer) 25.7 ml/min BUN/Creatinine Ratio 16.1 (10-20) Glucose 81 (70-99(Fasting)) mg/dl Calcium 9.0 (8.5-10.1) mg/dl Magnesium 2.2 (1.7-2.4) mg/dl Total Bilirubin 0.6 (0.2-1.0) mg/dl Direct Bilirubin 0.2 (0-0.2) mg/dl AST 17 (13-39) U/L ALT 10 (7-52) U/L Alkaline Phosphatase 81 (34-104) U/L Lactate Dehydrogenase (86-244) U/L Troponin I High Sens 24.5 H (0-14) pg/ml Total Protein 6.9 (6.0-8.3) gm/dl Albumin 4.1 (3.4-5.0) gm/dl Blood Type A Positive Antibody Screen NEGATIVE Crossmatch See Detail 01/27/22 Range/Units 19:20 WBC (4.8-10.8) K/ul RBC (3.93-5.22) M/uL Hgb (12.0-16.0) g/dl Hct (34.1-44.9) % MCV (80.0-100.0) fL MCH (25.0-34.0) pg MCHC (32.0-36.0) g/dL RDW Std Deviation (36.4-46.3) fL RDW Coeff of Delia (11.5-14.5) % Plt Count (130-400) K/uL Immature Gran % (Auto) % Neut % (Auto) % Lymph % (Auto) % [place] % (Auto) % Eos % (Auto) % Baso % (Auto) % Reticulocyte % (Auto) (0.5-2.0) % Neut # (Auto) (1.4-6.5) K/uL Lymph # (Auto) (1.2-3.4) K/uL [place] # (Auto) (0.24-0.82) K/uL Eos # (Auto) (0-0.50) K/uL Baso # (Auto) (0-0.2) K/uL Reticulocyte # (0.02-0.10) 10^6/uL Immature Gran # (Auto) (0.00-0.02) K/uL Platelet Estimate (Normal) Polychromasia Ovalocytes Sodium (136-145) mmol/L Potassium (3.5-5.1) mmol/L Chloride (98-107) mmol/L Carbon Dioxide (21-32) mmol/L Anion Gap (3-11) BUN (6-23) mg/dl Creatinine (0.6-1.2) mg/dl Est Cr Clr Drug Dosing ml/min Est GFR ( Amer) ml/min Est GFR (Non-Af Amer) ml/min BUN/Creatinine Ratio (10-20) Glucose (70-99(Fasting)) mg/dl Calcium (8.5-10.1) mg/dl Magnesium (1.7-2.4) mg/dl Total Bilirubin (0.2-1.0) mg/dl Direct Bilirubin (0-0.2) mg/dl AST (13-39) U/L ALT (7-52) U/L Alkaline Phosphatase (34-104) U/L Lactate Dehydrogenase 173 (86-244) U/L Troponin I High Sens (0-14) pg/ml Total Protein (6.0-8.3) gm/dl Albumin (3.4-5.0) gm/dl Blood Type Antibody Screen Crossmatch Administered Medications Allopurinol (Allopurinol 300 Mg Tab) 300 mg PO [facility] Stop: 02/27/22 08:59 Last Admin: 01/28/22 08:27 Dose: 300 mg Documented By: CRISTÓBAL Ascorbic Acid (Ascorbic Acid 500 Mg Tab) 1,000 mg PO QID [facility] Stop: 02/27/22 12:59 Last Admin: 01/28/22 12:35 Dose: 1,000 mg Documented By: CRISTÓBAL Buspirone HCl (Buspirone 5 Mg Tab) 5 mg PO TID PRN PRN Reason: Anxiety Stop: 02/27/22 01:21 Last Admin: 01/28/22 08:29 Dose: 5 mg Documented By: CRISTÓBAL Cetirizine HCl (Cetirizine Hcl 10 Mg Tablet) [facility] Stop: 02/27/22 08:59 Last Admin: 01/28/22 08:28 Dose: 10 mg Documented By: CRISTÓBAL Cyanocobalamin (Cyanocobalamin (B-12) 500 Mcg Tablet) 1,000 mcg PO DAILY [facility] Stop: 02/27/22 08:59 Last Admin: 01/28/22 08:30 Dose: 1,000 mcg Documented By: CRISTÓBAL Famotidine (Famotidine 20 Mg Tab) 20 mg PO AMHS [facility] Stop: 02/27/22 08:59 Last Admin: 01/28/22 08:31 Dose: 20 mg Documented By: CRISTÓBAL Fexofenadine HCl (Fexofenadine Hcl 180 Mg Tab) 180 mg PO DAILY [facility] Stop: 02/27/22 08:59 Last Admin: 01/28/22 08:28 Dose: 180 mg Documented By: CRISTÓBAL Folic Acid (Folic Acid 1 Mg Tab) 1 mg PO QAM [place] Stop: 02/27/22 08:59 Last Admin: 01/28/22 08:29 Dose: 1 mg Documented By: CRISTÓBAL Meropenem 500 mg/ Syringe 10 mls @ 2 mls/min IV Q8H [place]; Protocol Stop: 02/07/22 02:59 Last Admin: 01/28/22 12:34 Dose: 2 mls/min Documented By: Admin: 01/28/22 03:26 Dose: 2 mls/min Documented By: JOHN Ibrutinib (Ibrutinib) 1 each PO DAILY [place] Stop: 02/27/22 08:59 Last Admin: 01/28/22 09:50 Dose: Not Given Documented By: CRISTÓBAL Labetalol HCl (Labetalol Hcl 300 Mg Tab) 300 mg PO TID [place] Stop: 02/27/22 08:59 Last Admin: 01/28/22 08:28 Dose: 300 mg Documented By: CRISTÓBAL Lactobacillus Acidophilus (Advanced Probiotic 1250 Mg Capsule) 2 cap PO DAILY [place] Stop: 02/27/22 08:59 Last Admin: 01/28/22 08:31 Dose: 2 cap Documented By: CRISTÓBAL Magnesium Chloride (Magnesium Chloride W/Calcium 64mg Delayed Rel Tab) 64 mg PO QAM [facility] Stop: 02/27/22 11:29 Last Admin: 01/28/22 12:34 Dose: 64 mg Documented By: CRISTÓBAL Memantine (Memantine Hcl 5 Mg Tab) 5 mg PO BIDM [place] Stop: 02/27/22 01:21 Last Admin: 01/28/22 08:26 Dose: 5 mg Documented By: Admin: 01/28/22 02:03 Dose: 5 mg Documented By: JOHN Miscellaneous (Ketotifen~Order Awaiting Action) 1 each N/A QS [place] Stop: 02/27/22 07:59 Last Admin: 01/28/22 08:31 Dose: Not Given Documented By: CRISTÓBAL Miscellaneous (Ramelteon~Order Awaiting Action) 1 each N/A QS [facility] Stop: 02/27/22 07:59 Last Admin: 01/28/22 08:32 Dose: Not Given Documented By: CRISTÓBAL Montelukast Sodium (Montelukast Sodium 10 Mg Tablet) [facility] Stop: 02/27/22 08:59 Last Admin: 01/28/22 08:29 Dose: 10 mg Documented By: CRISTÓBAL Multi-Ingredient Mouthwash/Gargle (First - Mouthwash Blm 119 Ml) 30 ml PO BID [facility] Stop: 02/27/22 08:59 Last Admin: 01/28/22 09:50 Dose: Not Given Documented By: CRISTÓBAL Multivitamins (Multivitamin Tab) 1 tab PO [facility] Stop: 02/27/22 08:59 Last Admin: 01/28/22 08:30 Dose: 1 tab Documented By: CRISTÓBAL Oxycodone HCl (Oxycodone Hcl Ir 5 Mg Tab (Immediate Release)) 5 mg PO Q6H PRN PRN Reason: Pain, Severe Stop: 02/11/22 01:21 Last Admin: 01/28/22 08:25 Dose: 5 mg Documented By: Admin: 01/28/22 01:48 Dose: 5 mg Documented By: JOHN Pantoprazole Sodium (Pantoprazole 40 Mg Tab) 40 mg PO [facility] Stop: 02/27/22 08:59 Last Admin: 01/28/22 08:30 Dose: 40 mg Documented By: CRISTÓBAL Prednisone (Prednisone 2.5 Mg Tab) 2.5 mg PO [facility] Stop: 02/27/22 08:59 Last Admin: 01/28/22 08:30 Dose: 2.5 mg Documented By: CRISTÓBAL Rosuvastatin Calcium (Rosuvastatin Calcium 5 Mg Tab) 5 mg PO [facility] Stop: 02/27/22 08:59 Last Admin: 01/28/22 08:30 Dose: 5 mg Documented By: CRISTÓBAL Sodium Bicarbonate (Sodium Bicarbonate 650 Mg Tab) 1,300 mg PO [facility] Stop: 02/27/22 08:59 Last Admin: 01/28/22 08:27 Dose: 1,300 mg Documented By: CRISTÓBAL Tramadol HCl (Tramadol Hcl 50 Mg Tablet) 100 mg PO BID [facility] Stop: 02/27/22 08:59 Last Admin: 01/28/22 08:37 Dose: 100 mg Documented By: CRISTÓBAL Zolpidem Tartrate (Zolpidem Tartrate 10 Mg Tab) 10 mg PO HS PRN PRN Reason: Insomnia Stop: 02/27/22 01:21 Last Admin: 01/28/22 01:48 Dose: 10 mg Documented By: JOHN Discontinued Medications Furosemide (Furosemide Inj 20 Mg/2 Ml Vial) 40 mg IV ONE ONE Stop: 01/28/22 02:16 Last Admin: 01/28/22 02:26 Dose: 40 mg Documented By: JOHN Miscellaneous (Neoral~Order Awaiting Action) 1 each N/A QS LA Stop: 02/27/22 07:59 Last Admin: 01/28/22 08:32 Dose: Not Given Documented By: CRISTÓBAL Discharge Plan Visit Data Chief Complaint: Referred by Doctor Stated Complaint: REFERRED BY DOC, ENIMIC, URINARY SYSTEMS ED Provider: Corey Banks Discharge Problem: Antineoplastic chemotherapy induced anemia, Symptomatic anemia, Immunocompromised, Pancytopenia Patient Disposition: Admitted As Inpatient Discharge Instructions Interventions: ED Discharge Assessment Last Done: 01/28/22 01:10
[2022-01-27 20:12] LABS: Hematocrit (blood only) 19.8 % (34.1-44.9); Hemoglobin 6.8 g/dl (12.0-16.0); Mean Corpuscular Hemoglobin 33.2 pg (25.0-34.0); Mean Corpuscular Hgb Conc 34.3 g/dL (32.0-36.0); Mean Corpuscular Volume 96.6 fL (80.0-100.0); Platelet Count 50 K/uL (130-400); RDW Coefficient of Variation 16.9 % (11.5-14.5); RDW Standard Deviation 56.2 fL (36.4-46.3); Red Blood Count 2.05 M/uL (3.93-5.22); White Blood Count 3.14 K/ul (4.8-10.8)
[2022-01-27 20:13] LABS: Basophils # (auto) 0.01 K/uL (0-0.2); Basophils % (auto) 0.3 %; Eosinophils # (auto) 0.03 K/uL (0-0.50); Immature Granulocytes # (auto) 0.02 K/uL (0.00-0.02); Immature Granulocytes % (auto) 0.6 %; Lymphocytes # (auto) 1.43 K/uL (1.2-3.4); Lymphocytes % (auto) 45.5 %; Monocytes # (auto) 0.28 K/uL (0.24-0.82); Monocytes % (auto) 8.9 %; Neutrophils # (auto) 1.37 K/uL (1.4-6.5); Neutrophils % (auto) 43.7 %; Ovalocytes 2+; Platelet Estimate Decreased (Normal); Polychromasia 1+
[2022-01-27 20:14] LABS: Albumin Level 4.1 gm/dl (3.4-5.0); BUN Creatinine Ratio 16.1 (10-20); Bilirubin Direct 0.2 mg/dl (0-0.2); Bilirubin,Total 0.6 mg/dl (0.2-1.0); Est GFR (African American) 29.8 ml/min; Est GFR (Non-African American) 25.7 ml/min; Magnesium 2.2 mg/dl (1.7-2.4); Total Protein 6.9 gm/dl (6.0-8.3)
[2022-01-27 20:18] LABS: Troponin I High Sensitivity 24.5 pg/ml (0-14)
--- NOTE | 2022-01-27 23:24 | History & Physical Report ---
Date of Service January 27, 2022 Assessment & Plan (1) Symptomatic anemia: Plan: Decreasing hemoglobin over the last 2 months Pancytopenia on today's blood work history of cold agglutinin induced hemolytic anemia, NHL on Ibrutinib hx cyclosporine immunosuppression therapy post kidney transplant Troponin elevation secondary to above in the setting of chronic kidney dysfunction Complicated UTI, no sepsis for now hypertension, slightly elevated chronic pain/chronic migraine on narcotics ulcerative colitis as per records, stable disease history of AVR/aortic root repair replacement complete heart block status post pacemaker placement CRI status post kidney transplantation on immunosuppression therapy, serum creatinine at baseline Past history DVT status post anticoagulation past tobacco abuse Medical telemetry Transfuse PRBC to maintain hemoglobin greater than 10 (Patient historically symptomatic when hemoglobin less than 10 as per her account.) Peripheral blood smear Update patient's nursing teacher over the phone regarding pancytopenia. Follow troponin Urine CS, Meropenem for now based on microbiologic history (hx ESBL E. coli, Pseudomonas as per records) DVT prophylaxis. SCDs Re: Thrombocytopenia Full code Case discussed with Dr. Hemphill (nursing teacher on-call). He recommends transfusing PRBC to goal hemoglobin and discharging patient with follow-up appointment with her nursing teacher, Dr. Clemons. Continue imatinib and cyclosporine medications for now as per guidance. Text document was generated using [employer]im[employer] voice recognition software. It may contain grammatical or spelling errors. Kindly contact undersigned for clarification of any documentation item in question. History of Present Illness Chief Complaint: Weakness, abnormal blood work Primary Care Provider: Stuart Ravi MD History obtained from patient and records. Medical history significant for hypertension, chronic pain/chronic migraine on narcotics, chronic hyponatremia, ulcerative colitis as per records, history of AVR/aortic root repair replacement, complete heart block status post pacemaker p lacement, CRI status post kidney transplantation on immunosuppression therapy (baseline creatinine 2s), history of cold agglutinin induced hemolytic anemia, NHL on Ibrutinib, history of pulmonary nodules, history of DVT status post anticoagulation, recurrent UTIs (history ES BL E. coli as per records ), past tobacco abuse. Last confinement January 2020 for acute kidney injury. 2 months ago, patient noted generalized weakness with fatigue symptoms. Outpatient hemoglobin did to be 11.9 last November 2021. Patient nursing teacher not worried about hemolysis as per patient. 2 weeks ago, patient noted dysuria symptoms. No fever, no chills, no chest pain. No abdominal or flank pain or hematuria complaints. Patient denies black/bloody stools. 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 Patient noted worsening weakness, fatigue, shortness of breath on exertion in the last week. No fever, no cough symptoms. Abnormal outpatient blood work noted today. WBC 3.52, hemoglobin 6.6, hematocrit 20, platelets 48 Elevated reticulocyte count at 2.26%. Elevated haptoglobin at 232. Normal LDH. Patient directed by outpatient providers to the ER. 2 units packed RBC transfused at the ER. MEDICAL HISTORY: As above. SURGERIES: She has had renal transplant, pacemaker placement, aortic valve replacement, aortic root repair, dental surgery, urologic procedures, tonsillectomy, adenoidectomy, dental surgery. FAMILY HISTORY: Diabetes and heart disease. PERSONAL AND SOCIAL HISTORY: Past tobacco abuse. No chronic intake of alcoholic beverages. Disabled Allergies Allergy/AdvReac Type Severity Reaction Status Date / Time hydralazine Allergy Severe Hives Verified 01/13/22 13:39 morphine Allergy Severe Hives Verified 01/13/22 13:39 nitroglycerin AdvReac Severe Migraine Verified 01/13/22 13:39 valacyclovir AdvReac Severe Vomiting Verified 01/13/22 13:39 Home Medications Medication Instructions Recorded Confirmed Type ascorbic acid (vitamin C) 500 mg 1,000 mg PO QID 03/13/18 01/27/22 History capsule biotin 10,000 mcg capsule 10,000 mcg PO QAM 03/13/18 01/27/22 History cetirizine 10 mg tablet 10 mg PO QAM 03/13/18 01/27/22 History folic acid 1 mg tablet 1 mg PO QAM 03/13/18 01/27/22 History lorazepam 1 mg tablet 1 mg PO TID PRN Anxiety 03/13/18 01/27/22 History multivitamin 1 tab PO QAM 03/13/18 01/27/22 History prednisone 2.5 mg tablet 2.5 mg PO QAM 03/13/18 01/27/22 History montelukast 10 mg tablet 10 mg PO QAM 10/24/18 01/27/22 History buspirone 5 mg tablet 5 mg PO TID PRN Anxiety 01/08/19 01/27/22 History cimetidine 400 mg tablet 400 mg PO AMHS 01/08/19 01/27/22 History pantoprazole 40 mg tablet,delayed 40 mg PO AMHS 01/08/19 01/27/22 History release (Protonix) rosuvastatin 5 mg tablet (Crestor) 5 mg PO QAM 01/08/19 01/27/22 History zolpidem 10 mg tablet 10 mg PO HS Sleep 01/08/19 01/27/22 History tramadol 100 mg tablet,extended See Rx Instructions .Route .COMPLEX 03/09/19 01/27/22 History release 24 hr diphenhydramine HCl 25 mg capsule 25 - 50 mg PO Q6 PRN Itching 01/21/20 01/27/22 History (Benadryl) mirtazapine 45 mg tablet 45 mg PO HS 01/21/20 01/27/22 History polyethylene glycol 3350 17 gram 17 g PO DAILY PRN severe 01/21/20 01/27/22 History oral powder packet (Miralax) constipation amlodipine 2.5 mg tablet 2.5 mg PO QPM 06/15/20 01/27/22 History ibrutinib 280 mg tablet 280 mg PO QAM 06/15/20 01/27/22 History labetalol 300 mg tablet 300 mg PO TID 09/21/20 01/27/22 History sodium bicarbonate 650 mg tablet 1,300 mg PO AMHS 09/21/20 01/27/22 History rimegepant 75 mg disintegrating 75 mg PO .COMPLEX #8 tabs 11/22/21 01/27/22 Rx tablet (Nurtec ODT) ramelteon 8 mg tablet 8 mg PO HS 01/13/22 01/27/22 History L.acidoph-L.rhamn-B.bifidum-B.long 2 tab PO DAILY 01/27/22 01/27/22 History 12.9 mg (2 billion cell) tabletDR (Probiotic Acidophilus Kaley) Magic Swizzle 30 ml PO BID 01/27/22 01/27/22 History allopurinol 300 mg tablet 300 mg PO QAM 01/27/22 01/27/22 History amoxicillin 500 mg capsule 2,000 mg PO ONCE PRN 1 hr prior to 01/27/22 01/27/22 History dental procedure aspirin 81 mg chewable tablet 81 mg PO QAM 01/27/22 01/27/22 History (Aspirin Childrens) cyanocobalamin (vitamin B-12) 1,000 mcg PO DAILY 01/27/22 01/27/22 History 1,000 mcg tablet,extended release (Vitamin B-12 ER) cyclosporine modified 50 mg capsule 50 mg PO AMPM 01/27/22 01/27/22 History dicyclomine 10 mg capsule 10 mg PO TID PRN Abdominal Pain 01/27/22 01/27/22 History erenumab-aooe 70 mg/mL 70 mg subcut MONTHLY 01/27/22 01/27/22 History subcutaneous auto-injector (Aimovig Autoinjector) fexofenadine 180 mg tablet 180 mg PO DAILY 01/27/22 01/27/22 History glucosamine [id number] 1 tab PO BID 01/27/22 01/27/22 History javier 1,500 mg-400 unit-100 mg tablet (Glucosamine Daily Complex) ketotifen fumarate 0.025 % (0.035 1 drp ophthalmic (eye) BID PRN as 01/27/22 01/27/22 History %) eye drops direceted magnesium chloride 64 mg 64 mg PO QAM 01/27/22 01/27/22 History (magnesium chloride) tablet,delayed release melatonin 10 mg capsule 10 mg PO HS 01/27/22 01/27/22 History memantine 5 mg tablet 5 mg PO BIDM 01/27/22 01/27/22 History metaxalone 800 mg tablet 800 mg PO TID PRN Muscle Spasm 01/27/22 01/27/22 History metoclopramide HCl 5 mg tablet 5 mg PO DAILY PRN Nausea And 01/27/22 01/27/22 History Vomiting omega 5-dcq-rdx-fish oil 1,000 mg 3 cap PO DAILY 01/27/22 01/27/22 History (120 mg-180 mg) capsule (Fish Oil) ondansetron HCl 4 mg tablet 4 mg PO Q12 PRN Nausea 01/27/22 01/27/22 History oxycodone 5 mg tablet 5 mg PO Q6H PRN Pain, Severe 01/27/22 01/27/22 History triamcinolone acetonide 55 mcg 2 spray intranasal DAILY 01/27/22 01/27/22 History nasal spray aerosol ubrogepant 50 mg tablet (Ubrelvy) 50 mg PO UD PRN Migraine Headache 01/27/22 01/27/22 History zinc gluconate 50 mg tablet 100 mg PO DAILY 01/27/22 01/27/22 History Past Med/Surg History Medical History Acute hyponatremia Acute pancreatitis Acute UTI Anxiety Aortic regurgitation Autoimmune hemolytic anemia B-cell lymphoma Carcinoma in situ Cervicalgia Chronic back pain Chronic pancreatitis CKD (chronic kidney disease), stage III Dehydration Depression Dyslipidemia ESBL (extended spectrum beta-lactamase) producing bacteria infection Essential hypertension Gastroparesis GERD (gastroesophageal reflux disease) History of DVT (deep vein thrombosis) History of herpes zoster History of membranous glomerulonephritis History of pericarditis History of renal calculi Hypertension Hypertensive heart disease Leukopenia Macular degeneration Marginal zone lymphoma Migraine headache Nausea and vomiting after administration of anesthetic agent Neurofibromatosis Pancreatic cyst Recurrent UTI Renal transplant recipient Ulcerative colitis UTI (urinary tract infection) Surgical History Cardiac pacemaker in situ H/O prior ablation treatment History of biopsy History of cardiac cath History of chest tube placement History of colonoscopy History of cystoscopy History of esophagogastroduodenoscopy (EGD) History of lithotripsy History of renal transplant History of tonsillectomy and adenoidectomy History of tooth extraction History of wisdom tooth extraction Status post aortic valve replacement with bioprosthetic valve Status post -donor kidney transplantation Status post living-donor kidney transplantation Family History Grandmother (Maternal) Coronary heart disease Family history of diabetes mellitus Grandfather (Paternal) Coronary heart disease Mother Kidney donor Other No family history of adverse response to anesthesia No family history of kidney disease Social History Smoking Status: Former smoker Tobacco Type: Cigarettes Second Hand Exposure: No; Hx Alcohol Use: No Hx Substance Use: No Preferred Language: Kyrgyz Communication Ability: Effective Detective Bureau Chief Required: No Beliefs That Will Affect Care: Spiritism marital status: Current Living Situation: Spouse Current Living Situation Comment: Feels Safe at Home: Yes Assistive Devices: Glasses Review of Systems Review of Systems: As per HPI, all other systems reviewed and negative Physical Exam Physical Exam: GENERAL: Comfortable, pleasant, obese, no respiratory distress SKIN: Pallor, warm HEENT: Pale palpebral conjunctivae, no ptosis, dry buccal mucosa NECK : Supple, no tenderness CHEST : CTA, no tenderness HEART : RRR, no obvious murmurs ABDOMEN: Some distention, nontender EXTREMITIES : No LE swelling/tenderness, no other conspicuous deformities noted NEUROLOGIC : Coherent, no facial asymmetry, no other gross focality Results & Data Results & Data ([facility]) Vital Signs (Past 12 Hours) Vital Signs Temp Pulse Resp BP Pulse Ox O2 Del Method 01/27/22 23:09 36.4 C L 65 22 146/82 H 95 01/27/22 22:46 145/87 H 01/27/22 22:46 69 19 96 01/27/22 22:45 70 26 H 97 01/27/22 22:30 68 19 98 01/27/22 22:30 170/97 H 01/27/22 22:15 67 15 97 01/27/22 22:15 141/73 H 01/27/22 22:13 69 18 97 01/27/22 22:13 129/77 01/27/22 22:00 67 16 96 01/27/22 21:46 88 21 95 01/27/22 21:46 170/85 H 01/27/22 21:45 90 11 L 01/27/22 21:30 68 15 97 01/27/22 21:30 151/87 H 01/27/22 21:21 65 24 97 01/27/22 21:21 134/80 01/27/22 21:15 69 19 97 01/27/22 21:15 133/75 01/27/22 21:00 62 14 01/27/22 21:00 132/80 01/27/22 20:46 132/80 01/27/22 20:46 66 18 98 01/27/22 20:45 66 20 91 01/27/22 20:30 76 18 146/56 H 97 01/27/22 20:15 124/75 01/27/22 22:09 36.7 C 79 170/97 H 98 01/27/22 21:39 36.7 C 67 18 170/85 H 98 01/27/22 21:24 36.7 C 67 18 151/87 H 99 01/27/22 21:22 36.7 C 65 17 134/80 96 01/27/22 21:06 36.6 C 86 17 132/80 01/27/22 20:15 65 15 124/75 93 01/27/22 18:58 36.7 C 72 18 124/70 95 Room Air Laboratory Results Laboratory Results WBC 3.14 K/ul (4.8-10.8) L 01/27/22 19:20 RBC 2.05 M/uL (3.93-5.22) L 01/27/22 19:20 Hgb 6.8 g/dl (12.0-16.0) L* 01/27/22 19:20 Hct 19.8 % (34.1-44.9) L* 01/27/22 19:20 MCV 96.6 fL (80.0-100.0) 01/27/22 19:20 MCH 33.2 pg (25.0-34.0) 01/27/22 19:20 MCHC 34.3 g/dL (32.0-36.0) 01/27/22 19:20 RDW Std Deviation 56.2 fL (36.4-46.3) H 01/27/22 19:20 RDW Coeff of Delia 16.9 % (11.5-14.5) H 01/27/22 19:20 Plt Count 50 K/uL (130-400) L 01/27/22 19:20 Immature Gran % (Auto) 0.6 % 01/27/22 19:20 Neut % (Auto) 43.7 % 01/27/22 19:20 Lymph % (Auto) 45.5 % 01/27/22 19:20 [place] % (Auto) 8.9 % 01/27/22 19:20 Eos % (Auto) 1.0 % 01/27/22 19:20 Baso % (Auto) 0.3 % 01/27/22 19:20 Neut # (Auto) 1.37 K/uL (1.4-6.5) L 01/27/22 19:20 Lymph # (Auto) 1.43 K/uL (1.2-3.4) 01/27/22 19:20 [place] # (Auto) 0.28 K/uL (0.24-0.82) 01/27/22 19:20 Eos # (Auto) 0.03 K/uL (0-0.50) 01/27/22 19:20 Baso # (Auto) 0.01 K/uL (0-0.2) 01/27/22 19:20 Immature Gran # (Auto) 0.02 K/uL (0.00-0.02) 01/27/22 19:20 Platelet Estimate Decreased (Normal) L 01/27/22 19:20 Polychromasia 1+ 01/27/22 19:20 Ovalocytes 2+ 01/27/22 19:20 Sodium 136 mmol/L (136-145) 01/27/22 19:20 Potassium 4.0 mmol/L (3.5-5.1) 01/27/22 19:20 Chloride 103 mmol/L (98-107) 01/27/22 19:20 Carbon Dioxide 22 mmol/L (21-32) 01/27/22 19:20 Anion Gap 11 (3-11) 01/27/22 19:20 BUN 35 mg/dl (6-23) H 01/27/22 19:20 Creatinine 2.17 mg/dl (0.6-1.2) H 01/27/22 19:20 Est Cr Clr Drug Dosing 30.0 ml/min 01/27/22 19:20 Est GFR ( Amer) 29.8 ml/min 01/27/22 19:20 Est GFR (Non-Af Amer) 25.7 ml/min 01/27/22 19:20 BUN/Creatinine Ratio 16.1 (10-20) 01/27/22 19:20 Glucose 81 mg/dl (70-99(Fasting)) 01/27/22 19:20 Calcium 9.0 mg/dl (8.5-10.1) 01/27/22 19:20 Magnesium 2.2 mg/dl (1.7-2.4) 01/27/22 19:20 Total Bilirubin 0.6 mg/dl (0.2-1.0) 01/27/22 19:20 Direct Bilirubin 0.2 mg/dl (0-0.2) 01/27/22 19:20 AST 17 U/L (13-39) 01/27/22 19:20 ALT 10 U/L (7-52) 01/27/22 19:20 Alkaline Phosphatase 81 U/L (34-104) 01/27/22 19:20 Troponin I High Sens 24.5 pg/ml (0-14) H 01/27/22 19:20 Total Protein 6.9 gm/dl (6.0-8.3) 01/27/22 19:20 Albumin 4.1 gm/dl (3.4-5.0) 01/27/22 19:20 SARS-CoV-2, RNA, NAAT NEGATIVE (NEGATIVE) 01/27/22 Unknown Blood Type A Positive 01/27/22 19:20 Antibody Screen NEGATIVE 01/27/22 19:20 Crossmatch See Detail 01/27/22 19:20 Diagnostic Findings Chest x-ray : 1. Cardiomegaly and cardiac pacemaker with prominence of the pulmonary vasculature. Correlate clinically for evidence of fluid overload/mild congestive change. 2. No airspace consolidation or large pleural effusion is identified.
[2022-01-28 00:13] LABS: Reticulocyte % 2.1 % (0.5-2.0); Reticulocytes # 0.04 10^6/uL (0.02-0.10)
--- NOTE | 2022-01-28 01:02 | XRay Report ---
SINGLE VIEW CHEST CLINICAL HISTORY: Dyspnea. FINDINGS: An AP, portable, upright chest radiograph is compared to study dated 01/21/2020. The patien t is status post midline sternotomy and cardiac valve surgery. A 2-lead cardiac pacemaker is unchange d in position and partially obscures the left upper chest. The heart is enlarged. There is prominence of the pulmonary vasculature. Chronic interstitial thickening similar to previous. Mild atelectasis is seen at the lung bases. The lungs and pleural spaces are otherwise clear. No pneumothorax is seen. The skeletal structures are osteopenic. The bony thorax is grossly intact. IMPRESSION: 1. Cardiomegaly and cardiac pacemaker with prominence of the pulmonary vasculature. Correlate clinica lly for evidence of fluid overload/mild congestive change. 2. No airspace consolidation or large pleural effusion is identified. ACT 112: Negative or not required by law. Electronically signed by: Ray Goff M.D. 01/28/2022 1:01 AM
[2022-01-28] MEDS ORDERED: PROMETHAZINE HCL 12.5 MG in SODIUM CHLORIDE 0.9% 50 ML IV PRN (01:22)
[2022-01-28] MEDS ORDERED: POLYETHYLENE (MIRALAX) 17 GM PACK PO PRN (01:22)
[2022-01-28] MEDS ORDERED: LORazepam 1 MG TAB PO PRN (01:22)
[2022-01-28] MEDS ORDERED: ACETAMINOPHEN 325 MG TAB PO PRN (01:22)
[2022-01-28] MEDS ORDERED: TRAMADOL 100 MG SCH (01:22)
[2022-01-28] MEDS ORDERED: SODIUM CHLORIDE 0.9% 250 ML IV PRN (01:28)
[2022-01-28] MEDS ORDERED: MELATONIN 3 MG TAB PO PRN (01:31)
[2022-01-28] MEDS: ZOLPIDEM TARTRATE 10 MG TAB PO PRN ×2 (01:48→22:44)
[2022-01-28] MEDS: oxyCODONE HCL IR 5 MG TAB (IMMEDIATE RELEASE) PO PRN ×4 (01:48→22:43)
[2022-01-28] MEDS: MEMANTINE HCL 5 MG TAB PO SCH ×3 (02:03→17:04)
[2022-01-28] MEDS ORDERED: FUROSEMIDE INJ 20 MG/2 ML VIAL IV ONE (02:15)
[2022-01-28 02:27] LABS: Appearance Urine Clear (Clear); Bacteria Urine Automated 1+ (Negative); Bilirubin Urine Negative (Negative); Blood Urine Negative (Negative); Cast Urine Automated 0 /lpf (0-5); Color Urine Yellow; Epithelial Cell Urine Auto 0-5 /lpf (0-5); Glucose Urine UA Negative (Negative); Ketones Urine Negative (Negative); Leukocyte Esterase Urine 2+ (Negative); Nitrite Urine Negative (Negative); Protein Urine Trace (Negative); RBC Urine Automated 0-4 /hpf (0-4); Specific Gravity Urine 1.008 (1.000-1.030); Urobilinogen Urine Negative (Negative); WBC Urine Automated >30 /hpf (0-5); pH Urine 6.5 (4.5-7.5)
[2022-01-28] MEDS: MEROPENEM 500 MG in SYRINGE 0 ML IV SCH ×3 (03:26→20:09)
[2022-01-28 07:34] LABS: Hematocrit (blood only) 22.9 % (34.1-44.9); Mean Corpuscular Hemoglobin 32.3 pg (25.0-34.0); Mean Corpuscular Hgb Conc 34.9 g/dL (32.0-36.0); Mean Corpuscular Volume 92.3 fL (80.0-100.0); Mean Platelet Volume 12.7 fL (9.4-12.3); Platelet Count 44 K/uL (130-400); RDW Coefficient of Variation 16.9 % (11.5-14.5); RDW Standard Deviation 52.6 fL (36.4-46.3); Red Blood Count 2.48 M/uL (3.93-5.22); White Blood Count 3.23 K/ul (4.8-10.8)
[2022-01-28 07:53] LABS: Basophils # (auto) 0.01 K/uL (0-0.2); Basophils % (auto) 0.3 %; Eosinophils # (auto) 0.03 K/uL (0-0.50); Eosinophils % (auto) 0.9 %; Immature Granulocytes # (auto) 0.01 K/uL (0.00-0.02); Immature Granulocytes % (auto) 0.3 %; Lymphocytes # (auto) 1.66 K/uL (1.2-3.4); Lymphocytes % (auto) 51.4 %; Monocytes # (auto) 0.36 K/uL (0.24-0.82); Monocytes % (auto) 11.1 %; Neutrophils # (auto) 1.16 K/uL (1.4-6.5); Ovalocytes 2+; Tear Drop Cells 1+
[2022-01-28 08:15] LABS: Vitamin B12 > 1500 pg/ml (180-914)
[2022-01-28] MEDS: allopurinoL 300 MG TAB PO SCH (08:27)
[2022-01-28] MEDS: SODIUM BICARBONATE 650 MG TAB PO SCH ×2 (08:27→20:26)
[2022-01-28] MEDS: CETIRIZINE HCL 10 MG TABLET PO SCH (08:28)
[2022-01-28] MEDS: LABETALOL HCL 300 MG TAB PO SCH ×3 (08:28→22:44)
[2022-01-28] MEDS: FEXOFENADINE HCL 180 MG TAB PO SCH (08:28)
[2022-01-28] MEDS: FOLIC ACID 1 MG TAB PO SCH (08:29)
[2022-01-28] MEDS: MONTELUKAST SODIUM 10 MG TABLET PO SCH (08:29)
[2022-01-28] MEDS: busPIRone 5 MG TAB PO PRN (08:29)
[2022-01-28] MEDS: predniSONE 2.5 MG TAB PO SCH (08:30)
[2022-01-28] MEDS: CYANOCOBALAMIN (B-12) 500 MCG TABLET PO SCH (08:30)
[2022-01-28] MEDS: MULTIVITAMIN TAB PO SCH (08:30)
[2022-01-28] MEDS: ROSUVASTATIN CALCIUM 5 MG TAB PO SCH (08:30)
[2022-01-28] MEDS: PANTOprazole 40 MG TAB PO SCH ×2 (08:30→22:44)
[2022-01-28] MEDS: ADVANCED PROBIOTIC 1250 MG CAPSULE PO SCH (08:31)
[2022-01-28] MEDS: FAMOTIDINE 20 MG TAB PO SCH ×2 (08:31→20:23)
[2022-01-28] MEDS: traMADol HCL 50 MG TABLET PO SCH ×2 (08:37→20:35)
[2022-01-28 08:45] LABS: Ferritin 813.9 ng/ml (8-388)
[2022-01-28] MEDS ORDERED: IBRUTINIB PO SCH (09:00)
[2022-01-28 09:05] LABS: BUN Creatinine Ratio 16.6 (10-20); Creatinine Clr Calc Pharmacy 34.6 ml/min; Est GFR (African American) 35.7 ml/min; Est GFR (Non-African American) 30.8 ml/min; Potassium 3.7 mmol/L (3.5-5.1)
[2022-01-28] MEDS: FIRST - Mouthwash BLM 119 ML PO SCH ×2 (09:50→20:23)
[2022-01-28] MEDS ORDERED: DICYCLOMINE HCL 10 MG CAP PO PRN (10:52)
[2022-01-28] MEDS: MAGNESIUM CHLORIDE W/CALCIUM 64MG DELAYED REL TAB PO SCH (12:34)
[2022-01-28] MEDS: ASCORBIC ACID 500 MG TAB PO SCH ×3 (12:35→20:12)
--- NOTE | 2022-01-28 15:15 | Hospitalist Progress Note ---
Date of Service January 28, 2022 Assessment & Plan (1) Symptomatic anemia: Plan: Symptomatic anemia Pancytopenia H/O Cold agglutinin induced hemolytic anemia H/O NHL on Ibrutinib Also on Cyclosporine (S/P kidney transplant) S/P 2 units PRBCs Iron panel, vitamin B12, folate levels noncontributory FOBT Pending Peripheral smear pending No obvious bleeding issues Outpatient LDH, Haptoglobin WNL, Mild increased reticulocytes Will Discuss with Oncology Monitor CBC Abnormal urinalysis Suspected complicated UTI H/O ESBL, Pseudomonas Urine culture pending Empirically on Meropenem Mild Troponin elevation Likely demand Ischemia secondary to above in the setting of chronic kidney dysfunction EKG shows no signs of acute ischemia Denies chest pain Hypertension Continue home meds Monitor Chronic pain/chronic migraine on narcotics Ulcerative colitis as per records H/O AVR/aortic root repair replacement Complete heart block S/P pacemaker Continue Home meds CKD III H/O Kidney Transplant Continue home immunosuppressive therapy Check Cyclospine levels DVT Px: SCDs Re: Thrombocytopenia Code Status Full code Admission and Anticipated Discharge Date Admission Date: January 27, 2022 Subjective Patient is seen and examined at bedside Feels better after blood transfusion Reports minimal cough Generalized weakness, dyspnea on exertion improved Denies any chest pain, dizziness, nausea, abdominal pain No other complaints Review of Systems Review of Systems: All systems reviewed & are unremarkable except as noted in Subjective Physical Exam Physical Exam: Physical Exam: Vitals signs as noted above General Appearance:Obese, no apparent distress Head: normocephalic, Atraumatic Eyes: normal inspection, EOMI Neck: supple, Trachea midline Respiratory/Chest: Normal breath sounds, CTA, No accessory muscle use Cardiovascular: S1, S2, +murmur Abdomen/GI:Soft, Non tender, Bowel sounds present Extremities/Musculoskeletal:normal inspection, no edema Neurologic/Psych:AAOX3, grossly no focal neurological deficits Skin: normal color, warm Results & Data Results & Data ([facility]) Vital Signs (Past 12 Hours) Vital Signs Temp Pulse Pulse Resp BP BP Pulse Ox 01/28/22 11:29 36.6 C 60 20 131/78 96 01/28/22 07:37 37.1 C 66 21 114/72 98 01/28/22 03:20 37.1 C 62 18 118/75 96 01/28/22 03:18 37.1 C 61 18 118/75 96 O2 Del Method 01/28/22 11:29 Room Air 01/28/22 07:37 Room Air 01/28/22 03:20 01/28/22 03:18 Laboratory Results Short CBC 01/27/22 01/28/22 Range/Units 19:20 06:40 WBC 3.14 L 3.23 L (4.8-10.8) K/ul Hgb 6.8 L* 8.0 L (12.0-16.0) g/dl Hct 19.8 L* 22.9 L (34.1-44.9) % Plt Count 50 L 44 L (130-400) K/uL BMP 01/27/22 01/28/22 19:20 06:40 Sodium 136 136 Potassium 4.0 3.7 Chloride 103 103 Carbon Dioxide 22 24 BUN 35 H 31 H Creatinine 2.17 H 1.87 H D Glucose 81 83 Calcium 9.0 9.0 Liver Function 01/27/22 Range/Units 19:20 Total Bilirubin 0.6 (0.2-1.0) mg/dl Direct Bilirubin 0.2 (0-0.2) mg/dl AST 17 (13-39) U/L ALT 10 (7-52) U/L Alkaline Phosphatase 81 (34-104) U/L Albumin 4.1 (3.4-5.0) gm/dl Urine 01/28/22 Range/Units 02:00 Urine Color Yellow Urine Appearance Clear (Clear) Urine pH 6.5 (4.5-7.5) Ur Specific Alexis 1.008 (1.000-1.030) Urine Protein Trace H (Negative) Urine Glucose (UA) Negative (Negative)
[2022-01-28] MEDS: METAXALONE 800 MG TABLET PO PRN ×2 (16:56→22:44)
[2022-01-28] MEDS ORDERED: Nursing to Pharmacy Communication SCH (19:15)
[2022-01-28] MEDS: amLODIPine BESYLATE 5 MG TAB PO SCH (20:10)
[2022-01-28] MEDS: cycloSPORINE 25 MG CAP PO SCH (20:22)
[2022-01-28] MEDS: MIRTAZAPINE SOLTAB 15 MG PO SCH (20:24)
[2022-01-28] MEDS: IBRUTINIB PO SCH (20:28)
[2022-01-29] MEDS: MEROPENEM 500 MG in SYRINGE 0 ML IV SCH ×3 (03:04→21:04)
[2022-01-29 08:01] LABS: Hematocrit (blood only) 24.9 % (34.1-44.9); Mean Corpuscular Hemoglobin 33.1 pg (25.0-34.0); Mean Corpuscular Hgb Conc 36.1 g/dL (32.0-36.0); Mean Corpuscular Volume 91.5 fL (80.0-100.0); Mean Platelet Volume 10.6 fL (9.4-12.3); Platelet Count 39 K/uL (130-400); RDW Standard Deviation 53.1 fL (36.4-46.3); Red Blood Count 2.72 M/uL (3.93-5.22); Reticulocyte % 1.6 % (0.5-2.0); Reticulocytes # 0.04 10^6/uL (0.02-0.10); White Blood Count 3.55 K/ul (4.8-10.8)
[2022-01-29 08:15] LABS: BUN Creatinine Ratio 17.4 (10-20); Creatinine Clr Calc Pharmacy 32.1 ml/min; Est GFR (African American) 32.7 ml/min; Est GFR (Non-African American) 28.2 ml/min; Magnesium 2.2 mg/dl (1.7-2.4)
[2022-01-29] MEDS: METAXALONE 800 MG TABLET PO PRN ×4 (08:25→21:04)
[2022-01-29] MEDS: LABETALOL HCL 300 MG TAB PO SCH ×3 (08:25→21:09)
[2022-01-29] MEDS: MEMANTINE HCL 5 MG TAB PO SCH ×2 (08:25→17:40)
[2022-01-29] MEDS: ASCORBIC ACID 500 MG TAB PO SCH ×4 (08:25→21:06)
[2022-01-29] MEDS: ZINC SULFATE 220 MG CAPSULE PO SCH (08:26)
[2022-01-29] MEDS: busPIRone 5 MG TAB PO PRN (08:26)
[2022-01-29] MEDS: allopurinoL 300 MG TAB PO SCH (08:26)
[2022-01-29] MEDS: CYANOCOBALAMIN (B-12) 500 MCG TABLET PO SCH (08:26)
[2022-01-29] MEDS: ADVANCED PROBIOTIC 1250 MG CAPSULE PO SCH (08:26)
[2022-01-29] MEDS: ROSUVASTATIN CALCIUM 5 MG TAB PO SCH (08:27)
[2022-01-29] MEDS: MONTELUKAST SODIUM 10 MG TABLET PO SCH (08:27)
[2022-01-29] MEDS: FOLIC ACID 1 MG TAB PO SCH (08:27)
[2022-01-29] MEDS: CETIRIZINE HCL 10 MG TABLET PO SCH (08:27)
[2022-01-29] MEDS: MAGNESIUM CHLORIDE W/CALCIUM 64MG DELAYED REL TAB PO SCH (08:27)
[2022-01-29] MEDS: MULTIVITAMIN TAB PO SCH (08:27)
[2022-01-29] MEDS: predniSONE 2.5 MG TAB PO SCH (08:27)
[2022-01-29] MEDS: SODIUM BICARBONATE 650 MG TAB PO SCH ×2 (08:28→21:11)
[2022-01-29] MEDS: cycloSPORINE 25 MG CAP PO SCH ×2 (08:29→21:07)
[2022-01-29] MEDS: FAMOTIDINE 20 MG TAB PO SCH ×2 (08:29→21:08)
[2022-01-29] MEDS: oxyCODONE HCL IR 5 MG TAB (IMMEDIATE RELEASE) PO PRN ×3 (08:37→21:14)
[2022-01-29] MEDS: traMADol HCL 50 MG TABLET PO SCH ×2 (12:21→21:14)
[2022-01-29] MEDS: FEXOFENADINE HCL 180 MG TAB PO SCH (12:22)
[2022-01-29] MEDS: FIRST - Mouthwash BLM 119 ML PO SCH ×2 (12:23→21:09)
[2022-01-29] MEDS: PANTOprazole 40 MG TAB PO SCH ×2 (12:23→21:10)
--- NOTE | 2022-01-29 14:10 | Hospitalist Progress Note ---
Date of Service January 29, 2022 Assessment & Plan (1) Symptomatic anemia: Plan: Symptomatic anemia Pancytopenia H/O Cold agglutinin induced hemolytic anemia H/O NHL on Ibrutinib Also on Cyclosporine (S/P kidney transplant) S/P 2 units PRBCs Iron panel, vitamin B12, folate levels noncontributory FOBT negative Peripheral smear pending No obvious bleeding issues LDH 173 Haptoglobin pending Reticulocytes normal Will Discuss with Oncology Dr.Nilesh Clemons tomorrow Monitor CBC Hb stable Complicated UTI-POA H/O ESBL, Pseudomonas Urine culture growing gram-negative bacilli Continue Meropenem for now Mild Troponin elevation Likely demand Ischemia secondary to above in the setting of chronic kidney dysfunction EKG shows no signs of acute ischemia Denies chest pain Hypertension Continue home meds Monitor Chronic pain/chronic migraine on narcotics Ulcerative colitis as per records H/O AVR/aortic root repair replacement Complete heart block S/P pacemaker Continue Home meds CKD III H/O Kidney Transplant Cyclospine levels pending Continue home immunosuppressive therapy DVT Px: SCDs Re: Thrombocytopenia Code Status Full code Admission and Anticipated Discharge Date Admission Date: January 27, 2022 Subjective Patient is seen and examined at bedside Dysuria, urgency improving Reports mild cough, nausea Denies any chest pain, dyspnea, abdominal pain, vomiting Urine culture growing gram-negative bacilli No other complaints Review of Systems Review of Systems: All systems reviewed & are unremarkable except as noted in Subjective Physical Exam 2 Physical Exam: Physical Exam: Vitals signs as noted above General Appearance:Obese, no apparent distress Head: normocephalic, Atraumatic Eyes: normal inspection, EOMI Neck: supple, Trachea midline Respiratory/Chest: Normal breath sounds, CTA, No accessory muscle use Cardiovascular: S1, S2, +murmur Abdomen/GI:Soft, Non tender, Bowel sounds present Extremities/Musculoskeletal:normal inspection, no edema Neurologic/Psych:AAOX3, grossly no focal neurological deficits Skin: normal color, warm Results & Data Results & Data ([facility]) Vital Signs (Past 12 Hours) Vital Signs Temp Pulse Resp BP Pulse Ox O2 Del Method 01/29/22 11:13 36.3 C L 65 20 105/70 99 Room Air 01/29/22 08:02 36.6 C 89 20 123/85 99 Room Air 01/29/22 04:13 37.0 C 67 20 113/73 94 Room Air Laboratory Results Short CBC 01/29/22 Range/Units 06:55 WBC 3.55 L (4.8-10.8) K/ul Hgb 9.0 L (12.0-16.0) g/dl Hct 24.9 L (34.1-44.9) % Plt Count 39 L (130-400) K/uL BMP 01/29/22 06:55 Sodium 138 Potassium 4.0 Chloride 103 Carbon Dioxide 24 BUN 35 H Creatinine 2.01 H Glucose 87 Calcium 9.0
[2022-01-29] MEDS: FLUTICASONE PROPIONATE NA SPR 16 GM BTL SCH (14:59)
[2022-01-29] MEDS: amLODIPine BESYLATE 5 MG TAB PO SCH (21:05)
[2022-01-29] MEDS: MIRTAZAPINE SOLTAB 15 MG PO SCH (21:09)
[2022-01-29] MEDS: IBRUTINIB PO SCH (21:15)
[2022-01-29] MEDS: ZOLPIDEM TARTRATE 10 MG TAB PO PRN (23:55)
[2022-01-30] MEDS: MEROPENEM 500 MG in SYRINGE 0 ML IV SCH (04:06)
[2022-01-30] MEDS: oxyCODONE HCL IR 5 MG TAB (IMMEDIATE RELEASE) PO PRN ×3 (05:20→18:24)
[2022-01-30 06:44] LABS: Hematocrit (blood only) 24.5 % (34.1-44.9); Hemoglobin 8.5 g/dl (12.0-16.0); Mean Corpuscular Hemoglobin 32.2 pg (25.0-34.0); Mean Corpuscular Hgb Conc 34.7 g/dL (32.0-36.0); Mean Corpuscular Volume 92.8 fL (80.0-100.0); RDW Coefficient of Variation 16.7 % (11.5-14.5); RDW Standard Deviation 52.3 fL (36.4-46.3); Red Blood Count 2.64 M/uL (3.93-5.22)
[2022-01-30 07:05] LABS: BUN Creatinine Ratio 20.2 (10-20); Calcium 8.9 mg/dl (8.5-10.1); Creatinine Clr Calc Pharmacy 30.1 ml/min; Est GFR (African American) 30.5 ml/min; Est GFR (Non-African American) 26.3 ml/min; Potassium 3.9 mmol/L (3.5-5.1)
[2022-01-30 07:26] LABS: Mean Platelet Volume 12.3 fL (9.4-12.3); Platelet Count 39 K/uL (130-400); Platelet Estimate Decreased (Normal)
[2022-01-30] MEDS: MAGNESIUM CHLORIDE W/CALCIUM 64MG DELAYED REL TAB PO SCH (09:38)
[2022-01-30] MEDS: predniSONE 2.5 MG TAB PO SCH (09:38)
[2022-01-30] MEDS: LABETALOL HCL 300 MG TAB PO SCH ×4 (09:38→23:54)
[2022-01-30] MEDS: ROSUVASTATIN CALCIUM 5 MG TAB PO SCH (09:38)
[2022-01-30] MEDS: ZINC SULFATE 220 MG CAPSULE PO SCH (09:39)
[2022-01-30] MEDS: FOLIC ACID 1 MG TAB PO SCH (09:39)
[2022-01-30] MEDS: cycloSPORINE 25 MG CAP PO SCH ×2 (09:39→21:41)
[2022-01-30] MEDS: FAMOTIDINE 20 MG TAB PO SCH ×2 (09:39→21:41)
[2022-01-30] MEDS: ADVANCED PROBIOTIC 1250 MG CAPSULE PO SCH (09:39)
[2022-01-30] MEDS: PANTOprazole 40 MG TAB PO SCH ×2 (09:39→21:42)
[2022-01-30] MEDS: SODIUM BICARBONATE 650 MG TAB PO SCH ×2 (09:39→21:42)
[2022-01-30] MEDS: MEMANTINE HCL 5 MG TAB PO SCH ×2 (09:39→17:38)
[2022-01-30] MEDS: CETIRIZINE HCL 10 MG TABLET PO SCH (09:39)
[2022-01-30] MEDS: ASCORBIC ACID 500 MG TAB PO SCH ×4 (09:39→21:41)
[2022-01-30] MEDS: CYANOCOBALAMIN (B-12) 500 MCG TABLET PO SCH (09:39)
[2022-01-30] MEDS: FEXOFENADINE HCL 180 MG TAB PO SCH (09:39)
[2022-01-30] MEDS: MONTELUKAST SODIUM 10 MG TABLET PO SCH (09:39)
[2022-01-30] MEDS: MULTIVITAMIN TAB PO SCH (09:40)
[2022-01-30] MEDS: FIRST - Mouthwash BLM 119 ML PO SCH ×2 (09:40→21:44)
[2022-01-30] MEDS: allopurinoL 300 MG TAB PO SCH (09:41)
[2022-01-30] MEDS: FLUTICASONE PROPIONATE NA SPR 16 GM BTL SCH (09:41)
[2022-01-30] MEDS: METAXALONE 800 MG TABLET PO PRN (09:46)
[2022-01-30] MEDS: traMADol HCL 50 MG TABLET PO SCH ×2 (09:46→21:43)
--- NOTE | 2022-01-30 11:59 | Consultation Report ---
NEPHROLOGY CONSULTATION DATE OF SERVICE: 01/30/2022 REASON FOR CONSULTATION: Kidney transplant patient with CKD IV. Now admitted with urinary tract inf ection and severe anemia. HISTORY OF PRESENT ILLNESS: The patient is a 51-year-old female with extremely complicated medical h istory including multiple kidney transplants in the past with baseline CKD with a baseline creatinine in the low 2s for now. She also has cold agglutinin induced hemolytic anemia, marginal cell lymphom a, on ibrutinib, history of DVT, status post anticoagulation, recurrent UTIs with complicated resista nt types. She had outpatient labs done on , which came back with a hemoglobin of 6.6 after w hich my clinic contacted the patient and instructed to go to the hospital, which she did. Hemoccult test was negative. She received 2 units of blood transfusion. She denies having any acute bleeding from any part of her body. She was having some UTI symptoms prior to hospitalization, but not now. Denied any shortness of breath, orthopnea, PND. Appetite is normal. Denies nausea, vomiting, diarrh ea. Hemoglobin this morning is better at 8.5. From renal function standpoint, her creatinine on adm ission was 2.17, this morning is 2.13 and all of these numbers are within her baseline range. The ziyad ayala feels back to baseline at this point. PAST MEDICAL AND SURGICAL HISTORY: Includes as detailed in HPI. On top of that, she also has chroni c pain/chronic migraine, on narcotics, history of hyponatremia, hypertension, ulcerative colitis as p er record, history of aortic valve replacement/aortic root repair, history of complete heart block, s tatus post pacemaker, prior tobacco use, history of pulmonary nodule, tonsillectomy, adenoidectomy, d ental surgeries. FAMILY HISTORY: Positive for diabetes and heart disease. 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 No alcohol. History of prior tobacco abuse. ALLERGIES: LIST REVIEWED AND IS PER THE H AND P. MEDICATIONS: Home medication list was reviewed in detail and is as per the reconciliation list. REVIEW OF SYSTEMS: As detailed in HPI; unless stated otherwise, 12 systems reviewed and negative. PHYSICAL EXAMINATION: GENERAL: Middle-aged white female who is not in any overt respiratory distress. She is awake, alert , oriented x3, able to give full detailed account of her medical history. VITAL SIGNS: Blood pressure 126/83, pulse rate 69, temperature 36.3, 96% on room air. HEENT: Mucous membranes are moist. NECK: Supple. No jugular venous distention. CHEST: Bilaterally clear to auscultation. CARDIOVASCULAR: S1 and S2, regular. ABDOMEN: Soft, nontender. EXTREMITIES: Show no edema. LABORATORY TEST: Creatinine this morning was 2.13, BUN is 43. Electrolytes otherwise normal and thi s is her baseline kidney function status. Hemoglobin on admission was low at 6.8; after blood transf usion, this morning, hemoglobin is 8.5, WBC count is 3.5, platelet count is 39,000. ASSESSMENT AND PLAN: A 51-year-old female with very complicated medical history including multiple k idney transplants with a baseline CKD of around low 2s, now admitted with urinary tract infection as well as severe anemia with associated pancytopenia. 1. Kidney transplant and CKD. This appears to be stable at this point, she has urinary tract infect ion, which is being treated. In the past, also whenever she has urinary tract infection. There is s ome decline in her kidney function as well as worsening in her anemia. No further recommendations ne eded from renal standpoint. Continue all of her current medication including her transplant medicati on. Cyclosporine dose was checked, but is pending at this time and is unlikely to be available by th e time of discharge. She will continue her previous cyclosporine dose, which is already on a very lo w end. 2. Severe anemia with pancytopenia. She has complicated history of lymphoma and is closely followed by relations coordinator, Dr. Clemons. Please give him a call and get his recommendation prior to discharge. Thank you very much for the consult. Job ID: [id number]
[2022-01-30] MEDS: cefTRIAXone SODIUM 2,000 MG in DEXTROSE 5% 50 ML IV SCH (13:05)
--- NOTE | 2022-01-30 14:00 | Hospitalist Progress Note ---
Date of Service January 30, 2022 Assessment & Plan (1) Symptomatic anemia: Plan: Symptomatic anemia Pancytopenia H/O Cold agglutinin induced hemolytic anemia H/O NHL on Ibrutinib Also on Cyclosporine (S/P kidney transplant) S/P 2 units PRBCs Iron panel, vitamin B12, folate levels noncontributory FOBT negative Peripheral smear not suggestive of hemolytic anemia No obvious bleeding issues LDH 173 Haptoglobin pending Reticulocytes normal Discussed with Oncology Dr.Nilesh Clemons 01/30/22: Recommends to hold Ibrutinib for 1-2 days Monitor CBC Denies any bleeding issues Complicated UTI-POA H/O ESBL, Pseudomonas Urine culture: grew Klebsiella Continue Meropenem >>Transitioned to Ceftriaxone Mild Troponin elevation Likely demand Ischemia secondary to above in the setting of chronic kidney dysfunction EKG shows no signs of acute ischemia Denies chest pain Hypertension Continue home meds Monitor Chronic pain/chronic migraine on narcotics Ulcerative colitis as per records H/O AVR/aortic root repair replacement Complete heart block S/P pacemaker Continue Home meds CKD III H/O Kidney Transplant Cyclospine levels pending Continue home immunosuppressive therapy Appreciate Nephrology Input DVT Px: SCDs Re: Thrombocytopenia Code Status Full code Admission and Anticipated Discharge Date Admission Date: January 27, 2022 Subjective Patient is seen and examined at bedside Reports poor sleep and fatigue No other complaints Eager to get discharged Discussed with Oncology today Denies any chest pain, dyspnea, dizziness, abdominal pain Review of Systems Review of Systems: All systems reviewed & are unremarkable except as noted in Subjective Physical Exam Physical Exam: Physical Exam: Vitals signs as noted above General Appearance:Obese, no apparent distress Head: normocephalic, Atraumatic Eyes: normal inspection, EOMI Neck: supple, Trachea midline Respiratory/Chest: Normal breath sounds, CTA, No accessory muscle use Cardiovascular: S1, S2, +murmur Abdomen/GI:Soft, Non tender, Bowel sounds present Extremities/Musculoskeletal:normal inspection, no edema Neurologic/Psych:AAOX3, grossly no focal neurological deficits Skin: normal color, warm Results & Data Results & Data ([place]) Vital Signs (Past 12 Hours) Vital Signs Temp Pulse Pulse Resp BP Pulse Ox O2 Del Method 01/30/22 10:54 36.3 C L 69 18 126/83 96 Room Air 01/30/22 08:02 60 01/30/22 07:31 36.7 C 62 18 118/77 97 Room Air 01/30/22 02:51 36.3 C L 71 18 123/78 98 Room Air Laboratory Results Short CBC 01/30/22 Range/Units 06:21 WBC 3.50 L (4.8-10.8) K/ul Hgb 8.5 L (12.0-16.0) g/dl Hct 24.5 L (34.1-44.9) % Plt Count 39 L (130-400) K/uL BMP 01/30/22 06:21 Sodium 136 Potassium 3.9 Chloride 103 Carbon Dioxide 25 BUN 43 H Creatinine 2.13 H Glucose 93 Calcium 8.9
[2022-01-30] MEDS: amLODIPine BESYLATE 5 MG TAB PO SCH (21:40)
[2022-01-30] MEDS: MIRTAZAPINE SOLTAB 15 MG PO SCH (21:42)
[2022-01-30] MEDS: ZOLPIDEM TARTRATE 10 MG TAB PO PRN (23:53)
[2022-01-31] MEDS: METAXALONE 800 MG TABLET PO PRN ×2 (00:42→08:07)
[2022-01-31] MEDS: oxyCODONE HCL IR 5 MG TAB (IMMEDIATE RELEASE) PO PRN ×3 (00:44→12:39)
[2022-01-31] MEDS: SODIUM BICARBONATE 650 MG TAB PO SCH (08:08)
[2022-01-31] MEDS: LABETALOL HCL 300 MG TAB PO SCH (08:08)
[2022-01-31] MEDS: FIRST - Mouthwash BLM 119 ML PO SCH (08:08)
[2022-01-31] MEDS: FEXOFENADINE HCL 180 MG TAB PO SCH (08:09)
[2022-01-31] MEDS: MAGNESIUM CHLORIDE W/CALCIUM 64MG DELAYED REL TAB PO SCH (08:09)
[2022-01-31] MEDS: MULTIVITAMIN TAB PO SCH (08:09)
[2022-01-31] MEDS: PANTOprazole 40 MG TAB PO SCH (08:09)
[2022-01-31] MEDS: CETIRIZINE HCL 10 MG TABLET PO SCH (08:09)
[2022-01-31] MEDS: ROSUVASTATIN CALCIUM 5 MG TAB PO SCH (08:09)
[2022-01-31] MEDS: cycloSPORINE 25 MG CAP PO SCH (08:09)
[2022-01-31] MEDS: ADVANCED PROBIOTIC 1250 MG CAPSULE PO SCH (08:09)
[2022-01-31] MEDS: FOLIC ACID 1 MG TAB PO SCH (08:09)
[2022-01-31] MEDS: FAMOTIDINE 20 MG TAB PO SCH (08:09)
[2022-01-31] MEDS: predniSONE 2.5 MG TAB PO SCH (08:09)
[2022-01-31] MEDS: MONTELUKAST SODIUM 10 MG TABLET PO SCH (08:09)
[2022-01-31] MEDS: allopurinoL 300 MG TAB PO SCH (08:09)
[2022-01-31] MEDS: ZINC SULFATE 220 MG CAPSULE PO SCH (08:10)
[2022-01-31] MEDS: MEMANTINE HCL 5 MG TAB PO SCH (08:10)
[2022-01-31] MEDS: CYANOCOBALAMIN (B-12) 500 MCG TABLET PO SCH (08:10)
[2022-01-31] MEDS: ASCORBIC ACID 500 MG TAB PO SCH (08:10)
[2022-01-31] MEDS: FLUTICASONE PROPIONATE NA SPR 16 GM BTL SCH (08:11)
[2022-01-31] MEDS: traMADol HCL 50 MG TABLET PO SCH (08:18)
[2022-01-31 08:44] LABS: Hematocrit (blood only) 25.6 % (34.1-44.9); Hemoglobin 8.8 g/dl (12.0-16.0); Mean Corpuscular Hgb Conc 34.4 g/dL (32.0-36.0); Mean Corpuscular Volume 93.1 fL (80.0-100.0); RDW Coefficient of Variation 16.3 % (11.5-14.5); RDW Standard Deviation 51.9 fL (36.4-46.3); Red Blood Count 2.75 M/uL (3.93-5.22); White Blood Count 2.48 K/ul (4.8-10.8)
[2022-01-31 09:03] LABS: BUN Creatinine Ratio 20.5 (10-20); Calcium 9.4 mg/dl (8.5-10.1); Creatinine Clr Calc Pharmacy 32.8 ml/min; Est GFR (African American) 33.9 ml/min; Est GFR (Non-African American) 29.3 ml/min; Potassium 3.3 mmol/L (3.5-5.1)
[2022-01-31 09:06] LABS: Platelet Count 39 K/uL (130-400)
[2022-01-31] MEDS ORDERED: POTASSIUM CHLORIDE CRTAB 20 MEQ TABCR PO ONE (09:46)
[2022-01-31] MEDS: cefTRIAXone SODIUM 2,000 MG in DEXTROSE 5% 50 ML IV SCH (12:00)
--- NOTE | 2022-01-31 12:21 | Hospitalist Progress Note ---
Date of Service January 31, 2022 Assessment & Plan (1) Symptomatic anemia: Plan: Symptomatic anemia Pancytopenia H/O Cold agglutinin induced hemolytic anemia H/O NHL on Ibrutinib Also on Cyclosporine (S/P kidney transplant) S/P 2 units PRBCs Iron panel, vitamin B12, folate levels noncontributory FOBT negative Peripheral smear not suggestive of hemolytic anemia No obvious bleeding issues LDH 173 Haptoglobin pending Reticulocytes normal Discussed with Oncology Dr.Nilesh Clemons 01/30/22: Recommends to hold Ibrutinib until further instructions as outpatient Monitor CBC Hb stable Planned for outpatient blood work on 02/03/22 and follow up with Oncology as outpatient Complicated UTI-POA H/O ESBL, Pseudomonas Urine culture: grew Klebsiella Continue Meropenem >>Transitioned to Ceftriaxone Plan to discharge on oral antibiotics upon discharge Mild Troponin elevation Likely demand Ischemia secondary to above in the setting of chronic kidney dysfunction EKG shows no signs of acute ischemia Denies chest pain Hypertension Continue home meds Monitor Chronic pain/chronic migraine on narcotics Ulcerative colitis as per records H/O AVR/aortic root repair replacement Complete heart block S/P pacemaker Continue Home meds CKD III H/O Kidney Transplant Cyclospine levels pending Continue home immunosuppressive therapy Appreciate Nephrology Input DVT Px: SCDs Re: Thrombocytopenia Code Status Full code Disposition Home Admission and Anticipated Discharge Date Admission Date: January 27, 2022 Subjective Patient is seen and examined at bedside Feels well Ambulated in hallways with no issues Discussed with Dr.Nilesh Clemons today Denies any chest pain, dyspnea, dizziness, abdominal pain CBC stable Review of Systems Review of Systems: All systems reviewed & are unremarkable except as noted in Subjective Physical Exam Physical Exam: Physical Exam: Vitals signs as noted above General Appearance:Obese, no apparent distress Head: normocephalic, Atraumatic Eyes: normal inspection, EOMI Neck: supple, Trachea midline Respiratory/Chest: Normal breath sounds, CTA, No accessory muscle use Cardiovascular: S1, S2, +murmur Abdomen/GI:Soft, Non tender, Bowel sounds present Extremities/Musculoskeletal:normal inspection, no edema Neurologic/Psych:AAOX3, grossly no focal neurological deficits Skin: normal color, warm Results & Data Results & Data ([facility]) Vital Signs (Past 12 Hours) Vital Signs Temp Pulse Pulse Resp BP Pulse Ox O2 Del Method 01/31/22 11:18 36.5 C 64 16 117/76 99 Room Air 11/22/22 08:00 60 01/31/22 08:05 36.7 C 71 18 134/83 97 Room Air 01/31/22 04:33 36.5 C 64 18 138/83 99 Room Air Laboratory Results Short CBC 01/31/22 Range/Units 08:24 WBC 2.48 L (4.8-10.8) K/ul Hgb 8.8 L (12.0-16.0) g/dl Hct 25.6 L (34.1-44.9) % Plt Count 39 L (130-400) K/uL BMP 01/31/22 08:24 Sodium 138 Potassium 3.3 L Chloride 103 Carbon Dioxide 25 BUN 40 H Creatinine 1.95 H Glucose 128 H Calcium 9.4
--- NOTE | 2022-01-31 12:47 | Discharge Summary ---
Date of Service January 31, 2022 Admission HPI Per Admitting Provider History obtained from patient and records. Medical history significant for hypertension, chronic pain/chronic migraine on narcotics, chronic hyponatremia, ulcerative colitis as per records, history of AVR/aortic root repair replacement, complete heart block status post pacemaker placement, CRI status post kidney transplantation on immunosuppression therapy (baseline creatinine 2s), history of cold agglutinin induced hemolytic anemia, NHL on Ibrutinib, history of pulmonary nodules, history of DVT status post anticoagulation, recurrent UTIs (history ES BL E. coli as per records ), past tobacco abuse. Last confinement January 2020 for acute kidney injury. 2 months ago, patient noted generalized weakness with fatigue symptoms. Outpatient hemoglobin did to be 11.9 last November 2021. Patient slot attendant not worried about hemolysis as per patient. 2 weeks ago, patient noted dysuria symptoms. No fever, no chills, no chest pain. No abdominal or flank pain or hematuria complaints. Patient denies black/bloody stools. 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 Patient noted worsening weakness, fatigue, shortness of breath on exertion in the last week. No fever, no cough symptoms. Abnormal outpatient blood work noted today. WBC 3.52, hemoglobin 6.6, hematocrit 20, platelets 48 Elevated reticulocyte count at 2.26%. Elevated haptoglobin at 232. Normal LDH. Patient directed by outpatient providers to the ER. 2 units packed RBC transfused at the ER. MEDICAL HISTORY: As above. SURGERIES: She has had renal transplant, pacemaker placement, aortic valve replacement, aortic root repair, dental surgery, urologic procedures, tonsillectomy, adenoidectomy, dental surgery. FAMILY HISTORY: Diabetes and heart disease. PERSONAL AND SOCIAL HISTORY: Past tobacco abuse. No chronic intake of alcoholic beverages. Disabled Admission Exam Per Admitting Provider Physical Exam Physical Exam: GENERAL: Comfortable, pleasant, obese, no respiratory distress SKIN: Pallor, warm HEENT: Pale palpebral conjunctivae, no ptosis, dry buccal mucosa NECK : Supple, no tenderness CHEST : CTA, no tenderness HEART : RRR, no obvious murmurs ABDOMEN: Some distention, nontender EXTREMITIES : No LE swelling/tenderness, no other conspicuous deformities noted NEUROLOGIC : Coherent, no facial asymmetry, no other gross focality Principal Diagnosis Symptomatic anemia Pancytopenia Urinary tract infection Discharge Data Allergies Allergy/AdvReac Type Severity Reaction Status Date / Time hydralazine Allergy Severe Hives Verified 01/13/22 13:39 morphine Allergy Severe Hives Verified 01/13/22 13:39 nitroglycerin AdvReac Severe Migraine Verified 01/13/22 13:39 valacyclovir AdvReac Severe Vomiting Verified 01/13/22 13:39 Consultations 01/27/22 20:15 ED Decision to Admit Stat 01/30/22 12:04 Consult Nephrology Routine Procedures Performed Laboratory Results WBC 2.48 K/ul (4.8-10.8) L 01/31/22 08:24 RBC 2.75 M/uL (3.93-5.22) L 01/31/22 08:24 Hgb 8.8 g/dl (12.0-16.0) L 01/31/22 08:24 Hct 25.6 % (34.1-44.9) L 01/31/22 08:24 MCV 93.1 fL (80.0-100.0) 01/31/22 08:24 MCH 32.0 pg (25.0-34.0) 01/31/22 08:24 MCHC 34.4 g/dL (32.0-36.0) 01/31/22 08:24 RDW Std Deviation 51.9 fL (36.4-46.3) H 01/31/22 08:24 RDW Coeff of Delia 16.3 % (11.5-14.5) H 01/31/22 08:24 Plt Count 39 K/uL (130-400) L 01/31/22 08:24 MPV 12.3 fL (9.4-12.3) 01/30/22 06:21 Immature Gran % (Auto) 0.3 % 01/28/22 06:40 Neut % (Auto) 36.0 % 01/28/22 06:40 Lymph % (Auto) 51.4 % 01/28/22 06:40 [place] % (Auto) 11.1 % 01/28/22 06:40 Eos % (Auto) 0.9 % 01/28/22 06:40 Baso % (Auto) 0.3 % 01/28/22 06:40 Reticulocyte % (Auto) 1.6 % (0.5-2.0) 01/29/22 06:55 Neut # (Auto) 1.16 K/uL (1.4-6.5) L 01/28/22 06:40 Lymph # (Auto) 1.66 K/uL (1.2-3.4) 01/28/22 06:40 [place] # (Auto) 0.36 K/uL (0.24-0.82) 01/28/22 06:40 Eos # (Auto) 0.03 K/uL (0-0.50) 01/28/22 06:40 Baso # (Auto) 0.01 K/uL (0-0.2) 01/28/22 06:40 Reticulocyte # 0.04 10^6/uL (0.02-0.10) 01/29/22 06:55 Immature Gran # (Auto) 0.01 K/uL (0.00-0.02) 01/28/22 06:40 Platelet Estimate Decreased (Normal) L 01/30/22 06:21 Polychromasia 1+ 01/27/22 19:20 Tear Drop Cells 1+ 01/28/22 06:40 Ovalocytes 2+ 01/28/22 06:40 Peripher Smr Path Cons 01/27/22 19:20 Sodium 138 mmol/L (136-145) 01/31/22 08:24 Potassium 3.3 mmol/L (3.5-5.1) L 01/31/22 08:24 Chloride 103 mmol/L (98-107) 01/31/22 08:24 Carbon Dioxide 25 mmol/L (21-32) 01/31/22 08:24 Anion Gap 10 (3-11) 01/31/22 08:24 BUN 40 mg/dl (6-23) H 01/31/22 08:24 Creatinine 1.95 mg/dl (0.6-1.2) H 01/31/22 08:24 Est Cr Clr Drug Dosing 32.8 ml/min 01/31/22 08:24 Est GFR ( Amer) 33.9 ml/min 01/31/22 08:24 Est GFR (Non-Af Amer) 29.3 ml/min 01/31/22 08:24 BUN/Creatinine Ratio 20.5 (10-20) H 01/31/22 08:24 Glucose 128 mg/dl (70-99(Fasting)) H 01/31/22 08:24 Calcium 9.4 mg/dl (8.5-10.1) 01/31/22 08:24 Magnesium 2.2 mg/dl (1.7-2.4) 01/29/22 06:55 Iron 156 mcg/dl (35-150) H 01/28/22 06:40 Transferrin 160 mg/dl (200-360) L 01/28/22 06:40 Ferritin 813.9 ng/ml (8-388) H 01/28/22 06:40 Total Bilirubin 0.6 mg/dl (0.2-1.0) 01/27/22 19:20 Direct Bilirubin 0.2 mg/dl (0-0.2) 01/27/22 19:20 AST 17 U/L (13-39) 01/27/22 19:20 ALT 10 U/L (7-52) 01/27/22 19:20 Alkaline Phosphatase 81 U/L (34-104) 01/27/22 19:20 Lactate Dehydrogenase 173 U/L (86-244) 01/27/22 19:20 Troponin I High Sens 22.1 pg/ml (0-14) H 01/28/22 00:14 Total Protein 6.9 gm/dl (6.0-8.3) 01/27/22 19:20 Albumin 4.1 gm/dl (3.4-5.0) 01/27/22 19:20 Vitamin B12 > 1500 pg/ml (180-914) H 01/28/22 06:40 Folate > 22.30 ng/ml (>5.38) 01/28/22 06:40 Urine Color Yellow 01/28/22 02:00 Urine Appearance Clear (Clear) 01/28/22 02:00 Urine pH 6.5 (4.5-7.5) 01/28/22 02:00 Ur Specific [place] 1.008 (1.000-1.030) 01/28/22 02:00 Urine Protein Trace (Negative) H 01/28/22 02:00 Urine Glucose (UA) Negative (Negative) 01/28/22 02:00 Urine Ketones Negative (Negative) 01/28/22 02:00 Urine Blood Negative (Negative) 01/28/22 02:00 Urine Nitrite Negative (Negative) 01/28/22 02:00 Urine Bilirubin Negative (Negative) 01/28/22 02:00 Urine Urobilinogen Negative (Negative) 01/28/22 02:00 Ur Leukocyte Esterase 2+ (Negative) H 01/28/22 02:00 Urine WBC (Auto) >30 /hpf (0-5) H 01/28/22 02:00 Urine RBC (Auto) 0-4 /hpf (0-4) 01/28/22 02:00 U Hyaline Cast (Auto) 0 /lpf (0-5) 01/28/22 02:00 U Epithel Cells (Auto) 0-5 /lpf (0-5) 01/28/22 02:00 Urine Bacteria (Auto) 1+ (Negative) H 01/28/22 02:00 Stool Occult Bld Scrn Negative (Negative) 01/28/22 Unknown SARS-CoV-2, RNA, NAAT NEGATIVE (NEGATIVE) 01/27/22 Unknown Blood Type A Positive 01/27/22 19:20 Antibody Screen NEGATIVE 01/27/22 19:20 Crossmatch See Detail 01/27/22 19:20 Impressions Chest X-Ray 01/27/22 23:45 SINGLE VIEW CHEST CLINICAL HISTORY: Dyspnea. FINDINGS: An AP, portable, upright chest radiograph is compared to study dated 01/21/2020. The patient is status post midline sternotomy and cardiac valve surgery. A 2-lead cardiac pacemaker is unchanged in position and partially obscures the left upper chest. The heart is enlarged. There is prominence of the pulmonary vasculature. Chronic interstitial thickening similar to previous. Mild atelectasis is seen at the lung bases. The lungs and pleural spaces are otherwise clear. No pneumothorax is seen. The skeletal structures are ost eopenic. The bony thorax is grossly intact. IMPRESSION: 1. Cardiomegaly and cardiac pacemaker with prominence of the pulmonary vasculature. Correlate clinically for evidence of fluid overload/mild congestive change. 2. No airspace consolidation or large pleural effusion is identified. ACT 112: Negative or not required by law. Electronically signed by: Ray Goff M.D. 01/28/2022 1:01 AM Hospital Course (1) Symptomatic anemia: Symptomatic anemia Pancytopenia H/O Cold agglutinin induced hemolytic anemia H/O NHL on Ibrutinib Also on Cyclosporine (S/P kidney transplant) S/P 2 units PRBCs Iron panel, vitamin B12, folate levels noncontributory FOBT negative Peripheral smear not suggestive of hemolytic anemia No obvious bleeding issues LDH 173 Haptoglobin pending Reticulocytes normal Discussed with Oncology Dr.Nilesh Clemons 01/30/22: Recommends to hold Ibrutinib until further instructions as outpatient Monitor CBC Hb stable Planned for outpatient blood work on 02/03/22 and follow up with Oncology as outpatient Complicated UTI-POA H/O ESBL, Pseudomonas Urine culture: grew Klebsiella Continue Meropenem >>Transitioned to Ceftriaxone Plan to discharge on oral antibiotics upon discharge Mild Troponin elevation Likely demand Ischemia secondary to above in the setting of chronic kidney dysfunction EKG shows no signs of acute ischemia Denies chest pain Hypertension Continue home meds Monitor Chronic pain/chronic migraine on narcotics Ulcerative colitis as per records H/O AVR/aortic root repair replacement Complete heart block S/P pacemaker Continue Home meds CKD III H/O Kidney Transplant Cyclospine levels pending Continue home immunosuppressive therapy Appreciate Nephrology Input DVT Px: SCDs Re: Thrombocytopenia Code Status Full code Disposition Home Total Time Total Time Spent Total Time Spent (In Minutes): 49 minutes Discharge Plan Discharge Items Patient Disposition: Home - Self-Care Reason For Visit: SYMPTOMATIC ANEMIA Discharge Diagnosis: Symptomatic anemia Pancytopenia Urinary tract infection Activity: Per Instructions section Exercise/Sports: Wait until after follow-up appointment Non-emergency contact: Primary Care Provider and Oncologist Call non-emergency contact if: you have any medication questions, your symptoms worsen, your pain is concerning for you and you have a fever Follow-up/Referrals: Stuart Ravi MD [Primary Care Provider] - (Date & Time 02/03/2022 3:00 PM Provider [facility] ) Diet: Regular Addtl Attending Provider Instructions: Follow-up with your primary care physician on 02/03/2022 3:00 PM Follow-up with your oncologist Dr.Nilesh Clemons as advised --- Complete antibiotic course cefdinir as prescribed for urinary tract infection --- Plan to obtain blood test ( on Sunday-02/03/22) and follow-up with urine oncologist for further recommendations. --HOLD TAKING IBRUTINIB UNTIL FURTHER INSTRUCTIONS FROM YOUR ONCOLOGIST DR.NILESH CLEMONS Seek immediate medical attention if your symptoms reoccur or worsen Please take all medications as instructed on discharge list below. Please call if you have any questions or problems. You can reach a [facility] hospitalist on duty at [facility] 24 hours a day by calling [phone] Pending Studies at Discharge: Yes Studies:: Haptoglobin level Stand-Alone Forms: My [facility], Smoking Cessation Medications and DC Order Prescriptions: New cefdinir 300 mg capsule 300 mg PO BID 4 Days Qty: 8 0RF Rx Instructions: Start taking from 02/01/22 Continued Nurtec ODT 75 mg tablet,disintegrating 75 mg PO .COMPLEX Qty: 8 3RF Rx Instructions: 75 mg PO Take one tablet once a day as needed for migraine, max one dose per 24 hours, limit dosing to 2-3 times per week; ibrutinib 280 mg tablet 280 mg PO QAM Rx Instructions: take at same time(s) each day; swallow whole with water; do not crush, chew, break, dissolve, cut, or open rosuvastatin [Crestor] 5 mg tablet 5 mg PO QAM cimetidine 400 mg tablet 400 mg PO AMHS labetalol 300 mg tablet 300 mg PO TID Rx Instructions: morning,noon and before bedtime sodium bicarbonate 650 mg tablet 1,300 mg PO AMHS Rx Instructions: take before bedtime 2 tablet dose ramelteon 8 mg tablet 8 mg PO HS multivitamin Tablet 1 tab PO QAM prednisone 2.5 mg Tablet 2.5 mg PO QAM biotin 10,000 mcg Capsule 10,000 mcg PO QAM lorazepam 1 mg tablet 1 mg PO TID PRN (Reason: Anxiety) ascorbic acid (vitamin C) 500 mg Capsule 1,000 mg PO QID folic acid 1 mg Tablet 1 mg PO QAM cetirizine 10 mg Tablet 10 mg PO QAM buspirone 5 mg tablet 5 mg PO TID PRN (Reason: Anxiety) pantoprazole [Protonix] 40 mg tablet,delayed release (DR/EC) 40 mg PO AMHS Rx Instructions: take before bedtime zolpidem 10 mg tablet 10 mg PO HS montelukast 10 mg tablet 10 mg PO QAM tramadol 100 mg Tablet Extended Release 24 Hr See Rx Instructions .ROUTE .COMPLEX Rx Instructions: 100 mg orally every morning and 200mg at bedtime polyethylene glycol 3350 [Miralax] 17 gram Powder In Packet 17 g PO DAILY PRN (Reason: severe constipation) diphenhydramine HCl [Benadryl] 25 mg Capsule 25 - 50 mg PO Q6 PRN (Reason: Itching) mirtazapine 45 mg tablet 45 mg PO HS amlodipine 2.5 mg tablet 2.5 mg PO QPM allopurinol 300 mg tablet 300 mg PO QAM cyclosporine modified 50 mg capsule 50 mg PO AMPM ondansetron HCl 4 mg tablet 4 mg PO Q12 PRN (Reason: Nausea) metoclopramide HCl 5 mg tablet 5 mg PO DAILY PRN (Reason: Nausea And Vomiting) aspirin [Aspirin Childrens] 81 mg Tablet,Chewable 81 mg PO QAM metaxalone 800 mg tablet 800 mg PO TID PRN (Reason: Muscle Spasm) memantine 5 mg tablet 5 mg PO BIDM Rx Instructions: take with morning and evening meals magnesium chloride 64 mg Tablet,Delayed Release (Dr/Ec) 64 mg PO QAM Aimovig Autoinjector 70 mg/mL auto-injector 70 mg subcut MONTHLY Rx Instructions: 70 mg subcut monthly amoxicillin 500 mg capsule 2,000 mg PO ONCE PRN (Reason: 1 hr prior to dental procedure) oxycodone 5 mg Tablet 5 mg PO Q6H PRN (Reason: Pain, Severe) cyanocobalamin (vitamin B-12) [Vitamin B-12] 1,000 mcg Tablet Extended Release 1,000 mcg PO DAILY fexofenadine 180 mg Tablet 180 mg PO DAILY triamcinolone acetonide 55 mcg Aerosol,[place] 2 spray INTRANASAL DAILY Rx Instructions: administer into each nostril zinc gluconate 50 mg Tablet 100 mg PO DAILY dicyclomine 10 mg Capsule 10 mg PO TID PRN (Reason: Abdominal Pain) omega [id number] oil [Fish Oil] 1,000 mg (120 mg-180 mg) Capsule 3 cap PO DAILY melatonin 10 mg Capsule 10 mg PO HS Probiotic Acidophilus Biobeads 12.9 mg (2 billion cell) Tablet,Delayed Release (Dr/Ec) 2 tab PO DAILY Ubrelvy 50 mg Tablet 50 mg PO UD PRN (Reason: Migraine Headache) Rx Instructions: take as needed for migraine Magic Swizzle 30 ml PO BID Rx Instructions: swish and spit [id number] serr [Glucosamine Daily Complex] 1,500-400-100 mg-unit-mg Tablet 1 tab PO BID Rx Instructions: give after food/meal ketotifen fumarate 0.025 % (0.035 %) Drops 1 drp OPHTHALMIC (EYE) BID PRN (Reason: as direceted) Rx Instructions: administer at least 8 hours apart Discharge Orders: Discharge Order (Routine); Ordered 01/31/22 Ordered By: Pablito Villar Admission Data Admit Date/Time: 01/27/22 23:51 Attending Provider: Pablito Villar Admit Provider: Tam Ellison Primary Care Provider: Stuart Ravi Other Providers: Tam Ellison ; Nagi David
== END 2022-01-31 14:22 | disposition home or self-care (01) | DRG 809 ==
LOC: ED 18:48 → 2W 23:51 → SUATTDRO 23:51 → 2W 01-28 01:10

== ENCOUNTER 2022-02-16 09:53 | Inpatient (IN) ==
[2022-02-16 11:29] LABS: Hematocrit (blood only) 14.8 % (34.1-44.9); Hemoglobin 5.2 g/dl (12.0-16.0)
[2022-02-16 11:33] LABS: Albumin Globulin Ratio 1.6 (0.9-2); Albumin Level 4.1 gm/dl (3.4-5.0); BUN Creatinine Ratio 22.2 (10-20); Bilirubin,Total 0.8 mg/dl (0.2-1.0); Calcium 8.9 mg/dl (8.5-10.1); Creatinine Clr Calc Pharmacy 25.8 ml/min; Est GFR (African American) 25.4 ml/min; Est GFR (Non-African American) 21.9 ml/min; Globulin 2.5 gm/dl (2.5-4.0); Potassium 4.2 mmol/L (3.5-5.1); Total Protein 6.6 gm/dl (6.0-8.3)
[2022-02-16 11:48] LABS: Eosinophils # (auto) 0.01 K/uL (0-0.50); Eosinophils % (auto) 0.7 %; Lymphocytes # (auto) 0.75 K/uL (1.2-3.4); Lymphocytes % (auto) 53.6 %; Mean Corpuscular Hemoglobin 32.1 pg (25.0-34.0); Mean Corpuscular Hgb Conc 35.1 g/dL (32.0-36.0); Mean Corpuscular Volume 91.4 fL (80.0-100.0); Mean Platelet Volume 10.8 fL (9.4-12.3); Monocytes # (auto) 0.08 K/uL (0.24-0.82); Monocytes % (auto) 5.7 %; Neutrophils # (auto) 0.56 K/uL (1.4-6.5); Ovalocytes 1+; Platelet Count 10 K/uL (130-400); RDW Standard Deviation 48.5 fL (36.4-46.3); Red Blood Count 1.62 M/uL (3.93-5.22)
[2022-02-16] MEDS ORDERED: SODIUM CHLORIDE 0.9% 250 ML IV PRN ×2 (11:49→12:22)
--- NOTE | 2022-02-16 11:56 | Emergency Department Note ---
History of Present Illness General Chief complaint: Weakness Stated complaint: ANEMIA- SEVERE WEAKNESS AND SOB Time Seen by Provider: 02/16/22 11:29 Source: patient and family (Mother who is at the bedside) Mode of arrival: ambulatory Limitations: no limitations History of Present Illness Maximum Pain Intensity: 6 This patient is a 51-year-old female has a complex medical history which includes B-cell lymphoma and hemolytic anemia as well as renal transplant, comes in after being sent over by Dr. Chad Clemons her oncologist after hemoglobin was low at 5.9 and platelets were also 15,000 yesterday. She was sent here for transfusions and admission. She says she is felt like her hemoglobin is low since Sunday where she started getting short of breath and dizzy with exertion she feels generally weak she feels her heart rates with exertion. She feels tired but at rest she feels okay. She has a mild headache the way she does when she gets anemic she is had no fall or trauma. No blood or melena stool or u rine. The last time she had chemo was about 3 weeks ago. She does have a pacemaker and is well. Home Medications Medication Instructions Recorded Confirmed Type ascorbic acid (vitamin C) 500 mg 1,000 mg PO QID 03/13/18 02/16/22 History capsule folic acid 1 mg tablet 1 mg PO QAM 03/13/18 02/16/22 History multivitamin 1 tab PO QAM 03/13/18 02/16/22 History prednisone 2.5 mg tablet 2.5 mg PO QAM 03/13/18 02/16/22 History montelukast 10 mg tablet 10 mg PO QAM 10/24/18 02/16/22 History buspirone 5 mg tablet 5 mg PO TID PRN Anxiety 01/08/19 02/16/22 History cimetidine 400 mg tablet 400 mg PO AMHS 01/08/19 02/16/22 History pantoprazole 40 mg tablet,delayed 40 mg PO AMHS 01/08/19 02/16/22 History release (Protonix) rosuvastatin 5 mg tablet (Crestor) 5 mg PO HS 01/08/19 02/16/22 History tramadol 100 mg tablet,extended See Rx Instructions .Route .COMPLEX 03/09/19 02/16/22 History release 24 hr mirtazapine 45 mg tablet 45 mg PO HS 01/21/20 02/16/22 History polyethylene glycol 3350 17 gram 17 g PO DAILY 01/21/20 02/16/22 History oral powder packet (Miralax) amlodipine 2.5 mg tablet 2.5 mg PO QPM 06/15/20 02/16/22 History ibrutinib 280 mg tablet 280 mg PO QAM 06/15/20 02/16/22 History labetalol 300 mg tablet 300 mg PO Q8H 09/21/20 02/16/22 History sodium bicarbonate 650 mg tablet 1,300 mg PO AMHS 09/21/20 02/16/22 History ramelteon 8 mg tablet 8 mg PO HS 01/13/22 02/16/22 History L.acidoph-L.rhamn-B.bifidum-B.long 2 tab PO DAILY 01/27/22 02/16/22 History 12.9 mg (2 billion cell) tablet, DR (Probiotic Acidophilus Biobeads) Magic Swizzle 30 ml PO BID 01/27/22 02/16/22 History allopurinol 300 mg tablet 300 mg PO QAM 01/27/22 02/16/22 History amoxicillin 500 mg capsule 2,000 mg PO ONCE PRN 1 hr prior to 01/27/22 02/16/22 History dental procedure aspirin 81 mg chewable tablet 81 mg PO QAM 01/27/22 02/16/22 History (Aspirin Childrens) cyclosporine modified 50 mg capsule 50 mg PO AMPM 01/27/22 02/16/22 History erenumab-aooe 70 mg/mL 70 mg subcut MONTHLY 01/27/22 02/16/22 History subcutaneous auto-injector (Aimovig Autoinjector) fexofenadine 180 mg tablet 180 mg PO DAILY 01/27/22 02/16/22 History ketotifen fumarate 0.025 % (0.035 1 drp ophthalmic (eye) BID PRN as 01/27/22 02/16/22 History %) eye drops direceted magnesium chloride 64 mg 64 mg PO QAM 01/27/22 02/16/22 History (magnesium chloride) tablet,delayed release memantine 5 mg tablet 5 mg PO BIDM 01/27/22 02/16/22 History metaxalone 800 mg tablet 800 mg PO TID PRN Muscle Spasm 01/27/22 02/16/22 History metoclopramide HCl 5 mg tablet 5 mg PO DAILY PRN Nausea And 01/27/22 02/16/22 History Vomiting ondansetron HCl 4 mg tablet 4 mg PO Q12 PRN Nausea 01/27/22 02/16/22 History oxycodone 5 mg tablet 5 mg PO Q6H PRN Pain, Severe 01/27/22 02/16/22 History triamcinolone acetonide 55 mcg 2 spray intranasal DAILY 01/27/22 02/16/22 History nasal spray aerosol zinc gluconate 50 mg tablet 100 mg PO DAILY 01/27/22 02/16/22 History zolpidem 10 mg tablet 10 mg PO HS 02/16/22 02/16/22 History Allergies Allergy/AdvReac Type Severity Reaction Status Date / Time hydralazine Allergy Severe Hives Verified 01/13/22 13:39 morphine Allergy Severe Hives Verified 01/13/22 13:39 nitroglycerin AdvReac Severe Migraine Verified 01/13/22 13:39 valacyclovir AdvReac Severe Vomiting Verified 01/13/22 13:39 Past Med/Surg History Medical History (Updated 02/16/22 @ 15:33 by Hollis Alonso MD) Acute hyponatremia Acute pancreatitis Acute UTI Anxiety Aortic regurgitation "s/p bioprosthetic AVR" Autoimmune hemolytic anemia B-cell lymphoma diagnosed 03/2019--chemo Carcinoma in situ removed in office Cervicalgia Chronic back pain Chronic pancreatitis CKD (chronic kidney disease), stage III Dehydration Depression Dyslipidemia ESBL (extended spectrum beta-lactamase) producing bacteria infection Essential hypertension Gastroparesis GERD (gastroesophageal reflux disease) History of DVT (deep vein thrombosis) History of herpes zoster 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" History of pericarditis History of renal calculi Hypertension Hypertensive heart disease Leukopenia Macular degeneration Marginal zone lymphoma Migraine headache Nausea and vomiting after administration of anesthetic agent Neurofibromatosis Pancreatic cyst Recurrent UTI Renal transplant recipient Ulcerative colitis UTI (urinary tract infection) Surgical History (Updated 02/16/22 @ 13:31 by Cecille Miller PA-C) Cardiac pacemaker in situ meditronic @ [facility] 01/26/2017 H/O prior ablation treatment percutaneous peripheral nerve / C5-C6 ablation History of biopsy renal History of cardiac cath 2016 prior to AVR--no stent History of chest tube placement History of colonoscopy History of cystoscopy History of esophagogastroduodenoscopy (EGD) History of lithotripsy History of renal transplant History of tonsillectomy and adenoidectomy History of tooth extraction History of wisdom tooth extraction Status post aortic valve replacement with bioprosthetic valve @ [facility] 01/23/2017--follows with Dr. Rizo Status post -donor kidney transplantation 12/1984--removed 01/1990 Status post living-donor kidney transplantation in 06/1990 Family History Grandmother (Maternal) Coronary heart disease Family history of diabetes mellitus Grandfather (Paternal) Coronary heart disease Mother Kidney donor Other No family history of adverse response to anesthesia No family history of kidney disease Social History Smoking Status: Former smoker Tobacco Type: Cigarettes Second Hand Exposure: No; Hx Alcohol Use: No Hx Substance Use: No Preferred Language: [place] Communication Ability: Effective Salvage Clerk Required: No Beliefs That Will Affect Care: Jehovah'S Witness marital status: Current Living Situation: Spouse Current Living Situation Comment: Feels Safe at Home: Yes Assistive Devices: Glasses Review of Systems A total of 10 systems reviewed and were otherwise negative Physical Exam Vital Signs Vital Signs - 24 hr 02/16/22 10:10 02/16/22 11:13 02/16/22 11:35 Temperature 37.2 C Temperature Source Temporal Artery Scan Pulse Rate 76 Pulse Rate [Apical] 72 Pulse Rhythm Pulse Rhythm [Apical] Regular Pulse Strength Pulse Strength [Apical] Normal Respiratory Rate 20 20 Respiratory Effort / Characteristics Non-Labored Non-Labored Respiratory Depth Normal Normal Respiratory Pattern Regular Blood Pressure 101/66 Blood Pressure [Right Arm] 132/83 Blood Pressure Mean 77 Blood Pressure Mean [Right Arm] 99 Blood Pressure Position Blood Pressure Position [Right Arm] Lying Pulse Oximetry 99 99 Oxygen Delivery Method Room Air Room Air Room Air Sepsis Recent Fever Within 48 Hours No Sepsis New/Unexplained Change in Mental Status N/A Sepsis Action Taken by Nursing No Action Required 02/16/22 13:28 02/16/22 13:43 02/16/22 14:30 Temperature 37.0 C 37.1 C 37.4 C Temperature Source Oral Oral Oral Pulse Rate 72 73 72 Pulse Rate [Apical] Pulse Rhythm Regular Regular Regular Pulse Rhythm [Apical] Pulse Strength Normal Normal Normal Pulse Strength [Apical] Respiratory Rate 20 18 18 Respiratory Effort / Characteristics Respiratory Depth Respiratory Pattern Blood Pressure 124/76 114/69 124/74 Blood Pressure [Right Arm] Blood Pressure Mean 92 84 90 Blood Pressure Mean [Right Arm] Blood Pressure Position Lying Lying Lying Blood Pressure Position [Right Arm] Pulse Oximetry 95 95 95 Oxygen Delivery Method Sepsis Recent Fever Within 48 Hours Sepsis New/Unexplained Change in Mental Status Sepsis Action Taken by Nursing General: Well developed well nourished chronically ill-appearing somewhat pale middle-aged female who appears in no acute distress, breathing comfortably on r oom air. Normal speech HEENT: Normal cephalic atraumatic. Pupils are equal round and reactive to li ght. Extraocular movements are intact. Oropharynx is pink with moist mucous membranes. No swelling of the mouth lips or tongue. Neck: Supple with a midline trachea. No meningeal signs or stiffness, no JVD or bruits. No Stridor. Chest: Clear to auscultation bilaterally. No wheezes or rhonchi. No increased work of breathing. Heart: Regular rate and rhythm. There is a loud systolic murmur heard loudest at the right sternal border Abdomen: Soft nontender, nondistended without rebound guarding or rigidity. Extremities: No cyanosis clubbing or edema. No calf tenderness or assymetry Spine/Back. Non tender to palpation. No CVA tenderness Skin: Good turgor without rashes. Neurologic exam: Cranial nerves two through 12 are intact. Motor and sensation are intact and symmetrical throughout. Course Administered Medications Discontinued Medications Metaxalone (Metaxalone 800 Mg Tablet) 800 mg PO ONE ONE Stop: 02/16/22 14:01 Last Admin: 02/16/22 13:59 Dose: 800 mg Documented By: RSL Medical Decision Making Differential Diagnosis Anemia, thrombocytopenia, hemolytic anemia, electrolyte or metabolic abnorm ality, infection Medical Records Attestation: I reviewed the patient's medical records. Home Medications Current Medication List: was personally reviewed by me Laboratory Data Attestation: I reviewed the patient's lab results. Result diagrams: 02/16/22 10:55 02/16/22 10:55 Lab Results 02/16/22 02/16/22 02/16/22 Range/Units 10:55 10:55 10:55 WBC 1.40 L (4.8-10.8) K/ul RBC 1.62 L (3.93-5.22) M/uL Hgb 5.2 L* (12.0-16.0) g/dl Hct 14.8 L* (34.1-44.9) % MCV 91.4 (80.0-100.0) fL MCH 32.1 (25.0-34.0) pg MCHC 35.1 (32.0-36.0) g/dL RDW Std Deviation 48.5 H (36.4-46.3) fL RDW Coeff of Delia 15.0 H (11.5-14.5) % Plt Count 10 L* (130-400) K/uL MPV 10.8 (9.4-12.3) fL Immature Gran % (Auto) 0.0 % Neut % (Auto) 40.0 % Lymph % (Auto) 53.6 % Josephine % (Auto) 5.7 % Eos % (Auto) 0.7 % Baso % (Auto) 0.0 % Neut # (Auto) 0.56 L* (1.4-6.5) K/uL Lymph # (Auto) 0.75 L (1.2-3.4) K/uL Josephine # (Auto) 0.08 L (0.24-0.82) K/uL Eos # (Auto) 0.01 (0-0.50) K/uL Baso # (Auto) 0.00 (0-0.2) K/uL Immature Gran # (Auto) 0.00 (0.00-0.02) K/uL Ovalocytes 1+ Sodium 133 L (136-145) mmol/L Potassium 4.2 (3.5-5.1) mmol/L Chloride 103 (98-107) mmol/L Carbon Dioxide 18 L (21-32) mmol/L Anion Gap 12 H (3-11) BUN 55 H (6-23) mg/dl Creatinine 2.48 H (0.6-1.2) mg/dl Est Cr Clr Drug Dosing 25.8 ml/min Est GFR ( Amer) 25.4 ml/min Est GFR (Non-Af Amer) 21.9 ml/min BUN/Creatinine Ratio 22.2 H (10-20) Glucose 97 (70-99(Fasting)) mg/dl Lactate (0.4-2.0) mmol/L Calcium 8.9 (8.5-10.1) mg/dl Total Bilirubin 0.8 (0.2-1.0) mg/dl AST 18 (13-39) U/L ALT 12 (7-52) U/L Alkaline Phosphatase 100 (34-104) U/L Total Protein 6.6 (6.0-8.3) gm/dl Albumin 4.1 (3.4-5.0) gm/dl Globulin 2.5 (2.5-4.0) gm/dl Albumin/Globulin Ratio 1.6 (0.9-2) SARS-CoV-2 (PCR) (Negative) Influenza Type A (PCR) (Neg) Influenza Type B (PCR) (Neg) RSV (RT-PCR) (Neg) Blood Type A Positive Antibody Screen NEGATIVE Crossmatch See Detail 02/16/22 02/16/22 Range/Units 12:00 12:58 WBC (4.8-10.8) K/ul RBC (3.93-5.22) M/uL Hgb (12.0-16.0) g/dl Hct (34.1-44.9) % MCV (80.0-100.0) fL MCH (25.0-34.0) pg MCHC (32.0-36.0) g/dL RDW Std Deviation (36.4-46.3) fL RDW Coeff of Delia (11.5-14.5) % Plt Count (130-400) K/uL MPV (9.4-12.3) fL Immature Gran % (Auto) % Neut % (Auto) % Lymph % (Auto) % Josephine % (Auto) % Eos % (Auto) % Baso % (Auto) % Neut # (Auto) (1.4-6.5) K/uL Lymph # (Auto) (1.2-3.4) K/uL Josephine # (Auto) (0.24-0.82) K/uL Eos # (Auto) (0-0.50) K/uL Baso # (Auto) (0-0.2) K/uL Immature Gran # (Auto) (0.00-0.02) K/uL Ovalocytes Sodium (136-145) mmol/L Potassium (3.5-5.1) mmol/L Chloride (98-107) mmol/L Carbon Dioxide (21-32) mmol/L Anion Gap (3-11) BUN (6-23) mg/dl Creatinine (0.6-1.2) mg/dl Est Cr Clr Drug Dosing ml/min Est GFR ( Amer) ml/min Est GFR (Non-Af Amer) ml/min BUN/Creatinine Ratio (10-20) Glucose (70-99(Fasting)) mg/dl Lactate 1.0 (0.4-2.0) mmol/L Calcium (8.5-10.1) mg/dl Total Bilirubin (0.2-1.0) mg/dl AST (13-39) U/L ALT (7-52) U/L Alkaline Phosphatase (34-104) U/L Total Protein (6.0-8.3) gm/dl Albumin (3.4-5.0) gm/dl Globulin (2.5-4.0) gm/dl Albumin/Globulin Ratio (0.9-2) SARS-CoV-2 (PCR) POSITIVE A* (Negative) Influenza Type A (PCR) Negative (Neg) Influenza Type B (PCR) Negative (Neg) RSV (RT-PCR) Negative (Neg) Blood Type Antibody Screen Crossmatch Imaging Data Attestation: I personally reviewed and interpreted this imaging study as follows: My Impression: Chest x-raycardiomegaly but no definite failure pneumonia or pneumothorax seen. Pacemaker in place Radiologist's Impression: Chest X-Ray 02/16/22 12:08 SINGLE VIEW CHEST CLINICAL HISTORY: Cough FINDINGS: An AP, portable, upright chest radiograph is compared to study dated 01/28/2022. The patient is status post midline sternotomy and cardiac valve surgery. A 2-lead cardiac pacemaker is unchanged in position and partially obscures the left upper chest. The heart is enlarged. There is prominence of the pulmonary vasculature. The lungs and pleural spaces are clear noting bibasilar atelectasis. No pneumothorax is seen. The bony thorax is grossly intact. IMPRESSION: 1. Cardiomegaly and cardiac pacemaker with prominence of the pulmonary vasculature. Correlate clinically for evidence of fluid overload/mild congestive change. 2. No airspace consolidation or large pleural effusion is identified. ACT 112: Negative or not required by law. Electronically signed by: Ray Goff M.D. 02/16/2022 12:30 PM ECG Data Attestation: I personally reviewed and interpreted this ECG as follows: Indication: + SOB/dyspnea and + weakness Rate (beats per minute): 71 Rhythm: + other (Ventricular paced rhythm) ECG Intervals/blocks: + IVCD and + Prolonged QT ECG [place]: + Normal ECG ST segments: + Nonspecific ST abnormalities ECG Findings: no PACs or no PVCs Comparison ECG Date: from (01/21/20) Change: no significant change MDM Narrative This patient comes in as described above she was placed on a cath lab radiology technician room B7. The nurse asked me to go see her as she was significantly anemic she has stable vital signs and sounds like this is been going on for couple days she is getting worse. We checked her labs here IV access was established. I did type and cross her for 2 units of irradiated packed red cells. Her hemoglobin came back low again at 5.2 here and her platelets are 10,000. Her creatinine is 2.48 which she says was better than yesterday however it slightly above baseline. I did COVID test her as well. She will need to be admitted for further treatment and evaluation transfusion I talked to the patient at length and she was consented for this. I did talk to Dr. Clemons and he does feel she needs to be admitted admitted for transfusion of platelets and red cells. I did also order the platelets and also order them irradiated and talk to the blood bank about this as well. COVID tested, positive as well. [facility]. Continuous cardiac monitoring: Orders placed in EMR for continuous cardiac monitoring. Upon my interpretation she was noted to be in a paced rhythm with a rate of 70 Impression & Plan Weakness, Symptomatic anemia, Anemia, Thrombocytopenia, DESIREE (acute kidney injury), B-cell lymphoma, COVID Discharge Plan Visit Data Chief Complaint: Weakness Stated Complaint: ANEMIA- SEVERE WEAKNESS AND SOB ED Provider: Hollis Alonso Discharge Problem: Weakness, Symptomatic anemia, Anemia, Thrombocytopenia, DESIREE (acute kidney injury), B-cell lymphoma, COVID Forms Stand Alone Forms: [facility] Prescriptions Prescriptions: No Action ibrutinib 280 mg tablet 280 mg PO QAM Rx Instructions: take at same time(s) each day; swallow whole with water; do not crush, chew, break, dissolve, cut, or open rosuvastatin [Crestor] 5 mg tablet 5 mg PO HS cimetidine 400 mg tablet 400 mg PO AMHS labetalol 300 mg tablet 300 mg PO Q8H Rx Instructions: morning,noon and before bedtime sodium bicarbonate 650 mg tablet 1,300 mg PO AMHS Rx Instructions: take before bedtime 2 tablet dose ramelteon 8 mg tablet 8 mg PO HS multivitamin Tablet 1 tab PO QAM prednisone 2.5 mg Tablet 2.5 mg PO QAM ascorbic acid (vitamin C) 500 mg Capsule 1,000 mg PO QID folic acid 1 mg Tablet 1 mg PO QAM buspirone 5 mg tablet 5 mg PO TID PRN (Reason: Anxiety) pantoprazole [Protonix] 40 mg tablet,delayed release (DR/EC) 40 mg PO AMHS Rx Instructions: take before bedtime montelukast 10 mg tablet 10 mg PO QAM tramadol 100 mg Tablet Extended Release 24 Hr See Rx Instructions .ROUTE .COMPLEX Rx Instructions: 100 mg orally every morning and 200mg at bedtime polyethylene glycol 3350 [Miralax] 17 gram Powder In Packet 17 g PO DAILY mirtazapine 45 mg tablet 45 mg PO HS amlodipine 2.5 mg tablet 2.5 mg PO QPM zolpidem 10 mg tablet 10 mg PO HS allopurinol 300 mg tablet 300 mg PO QAM cyclosporine modified 50 mg capsule 50 mg PO AMPM ondansetron HCl 4 mg tablet 4 mg PO Q12 PRN (Reason: Nausea) metoclopramide HCl 5 mg tablet 5 mg PO DAILY PRN (Reason: Nausea And Vomiting) aspirin [Aspirin Childrens] 81 mg Tablet,Chewable 81 mg PO QAM metaxalone 800 mg tablet 800 mg PO TID PRN (Reason: Muscle Spasm) memantine 5 mg tablet 5 mg PO BIDM Rx Instructions: take with morning and evening meals magnesium chloride 64 mg Tablet,Delayed Release (Dr/Ec) 64 mg PO QAM Aimovig Autoinjector 70 mg/mL auto-injector 70 mg subcut MONTHLY Rx Instructions: 70 mg subcut monthly amoxicillin 500 mg capsule 2,000 mg PO ONCE PRN (Reason: 1 hr prior to dental procedure) oxycodone 5 mg Tablet 5 mg PO Q6H PRN (Reason: Pain, Severe) fexofenadine 180 mg Tablet 180 mg PO DAILY triamcinolone acetonide 55 mcg Aerosol,[place] 2 spray INTRANASAL DAILY Rx Instructions: administer into each nostril zinc gluconate 50 mg Tablet 100 mg PO DAILY Probiotic Acidophilus Biobeads 12.9 mg (2 billion cell) Tablet,Delayed Release (Dr/Ec) 2 tab PO DAILY Magic Swizzle 30 ml PO BID Rx Instructions: swish and spit ketotifen fumarate 0.025 % (0.035 %) Drops 1 drp OPHTHALMIC (EYE) BID PRN (Reason: as direceted) Rx Instructions: administer at least 8 hours apart Referrals Referrals: Stuart Ravi MD [Primary Care Provider] -
--- NOTE | 2022-02-16 12:16 | History & Physical Report ---
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 1st kidney transplant was in 1984 which lasted for 5 years, then in 1990 she had another transplantation. - Cr. currently 2.48, BUN 55 -- baseline cr is 2.0-2.2 upon outpt epic review - Continue home medications including prednisone and cyclophosphamide for suppression - Hx of last chemo therapy was on 01/30/22, follows with Dr. Chad Clemons, currently on hold - Hx of aortic valve replacement in 2017 - Recheck cbc at 2200 tonight, follow with am labs then - No current spontaneous bleed with thrombocytopenia DVT ppx: - teds, scds, no chemical ppx in the setting of thrombocytopenia CODE: Full code Dispo: From home, likely to remain in the hospital x 1-2 days (7) Immunosuppressed status: History of Present Illness Chief Complaint: Generalized weakness Primary Care Provider: Stuart Ravi MD This is a 51-year-old female with PMHx of marginal zone lymphoma, cold agglutinin anemia, cardiac pacemaker in situ, aortic valve replacement, hx of renal transplant, HTN, HLD, chronic pain syndrome, who presents with worsening weakness. She reports increased lethargy over the past 4 days progressively getting to the point where she thought she was becoming anemic. She admits to having a poor appetite, slower bowels, and some intermittent nausea over the past few days. She has felt this way before whenever her blood counts have dropped. She had outpatient labs routinely scheduled with her oncologist yesterday, and upon being made aware that she was pancytopenic she presented to the ER. Patient last received treatment with ibrutinib chemotherapy for lymphoma on 01/30/2022 and has been on hold since then due to counts. She has been able to take all of her routinely scheduled medication today. Patient's mother is present with her at bedside and supports the history. The patient lives at home with her . She denies any recent sick contacts but notes that she always has some type of postnasal drip secondary to allergies which she uses [id number] nasal sprays and antihistamines. Pancytopenia seen on her labs, hemoglobin of 5.2, platelet of 10 noted. 1 unit PRBCs and platelet transfusion has been ordered in the ER. Allergies Allergy/AdvReac Type Severity Reaction Status Date / Time hydralazine Allergy Severe Hives Verified 01/13/22 13:39 morphine Allergy Severe Hives Verified 01/13/22 13:39 nitroglycerin AdvReac Severe Migraine Verified 01/13/22 13:39 valacyclovir AdvReac Severe Vomiting Verified 01/13/22 13:39 Home Medications Medication Instructions Recorded Confirmed Type ascorbic acid (vitamin C) 500 mg 1,000 mg PO QID 03/13/18 02/16/22 History capsule folic acid 1 mg tablet 1 mg PO QAM 03/13/18 02/16/22 History multivitamin 1 tab PO QAM 03/13/18 02/16/22 History prednisone 2.5 mg tablet 2.5 mg PO QAM 03/13/18 02/16/22 History montelukast 10 mg tablet 10 mg PO QAM 10/24/18 02/16/22 History buspirone 5 mg tablet 5 mg PO TID PRN Anxiety 01/08/19 02/16/22 History cimetidine 400 mg tablet 400 mg PO AMHS 01/08/19 02/16/22 History pantoprazole 40 mg tablet,delayed 40 mg PO AMHS 01/08/19 02/16/22 History release (Protonix) rosuvastatin 5 mg tablet (Crestor) 5 mg PO HS 01/08/19 02/16/22 History tramadol 100 mg tablet,extended See Rx Instructions .Route .COMPLEX 03/09/19 02/16/22 History release 24 hr mirtazapine 45 mg tablet 45 mg PO HS 01/21/20 02/16/22 History polyethylene glycol 3350 17 gram 17 g PO DAILY 01/21/20 02/16/22 History oral powder packet (Miralax) amlodipine 2.5 mg tablet 2.5 mg PO QPM 06/15/20 02/16/22 History ibrutinib 280 mg tablet 280 mg PO QAM 06/15/20 02/16/22 History labetalol 300 mg tablet 300 mg PO Q8H 09/21/20 02/16/22 History sodium bicarbonate 650 mg tablet 1,300 mg PO AMHS 09/21/20 02/16/22 History ramelteon 8 mg tablet 8 mg PO HS 01/13/22 02/16/22 History L.acidoph-L.rhamn-B.bifidum-B.long 2 tab PO DAILY 01/27/22 02/16/22 History 12.9 mg (2 billion cell) tablet, DR (Probiotic Acidophilus Bioblashay) Magic Swizzle 30 ml PO BID 01/27/22 02/16/22 History allopurinol 300 mg tablet 300 mg PO QAM 01/27/22 02/16/22 History amoxicillin 500 mg capsule 2,000 mg PO ONCE PRN 1 hr prior to 01/27/22 02/16/22 History dental procedure aspirin 81 mg chewable tablet 81 mg PO QAM 01/27/22 02/16/22 History (Aspirin Childrens) cyclosporine modified 50 mg capsule 50 mg PO AMPM 01/27/22 02/16/22 History erenumab-aooe 70 mg/mL 70 mg subcut MONTHLY 01/27/22 02/16/22 History subcutaneous auto-injector (Aimovig Autoinjector) fexofenadine 180 mg tablet 180 mg PO DAILY 01/27/22 02/16/22 History ketotifen fumarate 0.025 % (0.035 1 drp ophthalmic (eye) BID PRN as 01/27/22 02/16/22 History %) eye drops direceted magnesium chloride 64 mg 64 mg PO QAM 01/27/22 02/16/22 History (magnesium chloride) tablet,delayed release memantine 5 mg tablet 5 mg PO BIDM 01/27/22 02/16/22 History metaxalone 800 mg tablet 800 mg PO TID PRN Muscle Spasm 01/27/22 02/16/22 History metoclopramide HCl 5 mg tablet 5 mg PO DAILY PRN Nausea And 01/27/22 02/16/22 History Vomiting ondansetron HCl 4 mg tablet 4 mg PO Q12 PRN Nausea 01/27/22 02/16/22 History oxycodone 5 mg tablet 5 mg PO Q6H PRN Pain, Severe 01/27/22 02/16/22 History triamcinolone acetonide 55 mcg 2 spray intranasal DAILY 01/27/22 02/16/22 History nasal spray aerosol zinc gluconate 50 mg tablet 100 mg PO DAILY 01/27/22 02/16/22 History zolpidem 10 mg tablet 10 mg PO HS 02/16/22 02/16/22 History Past Med/Surg History Medical History Acute hyponatremia Acute pancreatitis Acute UTI Anxiety Aortic regurgitation "s/p bioprosthetic AVR" Autoimmune hemolytic anemia B-cell lymphoma diagnosed 03/2019--chemo Carcinoma in situ removed in office Cervicalgia Chronic back pain Chronic pancreatitis CKD (chronic kidney disease), stage III Dehydration Depression Dyslipidemia ESBL (extended spectrum beta-lactamase) producing bacteria infection Essential hypertension Gastroparesis GERD (gastroesophageal reflux disease) History of DVT (deep vein thrombosis) History of herpes zoster 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" History of pericarditis History of renal calculi Hypertension Hypertensive heart disease Leukopenia Macular degeneration Marginal zone lymphoma Migraine headache Nausea and vomiting after administration of anesthetic agent Neurofibromatosis Pancreatic cyst Recurrent UTI Renal transplant recipient Ulcerative colitis UTI (urinary tract infection) Surgical History Cardiac pacemaker [place] [facility] [place] H/O prior ablation treatment percutaneous peripheral nerve / C5-C6 ablation History of biopsy renal History of cardiac cath 2016 prior to AVR--no stent History of chest tube placement History of colonoscopy History of cystoscopy History of esophagogastroduodenoscopy (EGD) History of lithotripsy History of renal transplant History of tonsillectomy and adenoidectomy History of tooth extraction History of wisdom tooth extraction Status post aortic valve replacement with bioprosthetic valve [place] [facility] [place]--follows with Dr. Rizo Status post -donor kidney transplantation 12/1984--removed 01/1990 Status post living-donor kidney transplantation in 06/1990 Family History Grandmother (Maternal) Coronary heart disease Family history of diabetes mellitus Grandfather (Paternal) Coronary heart disease Mother Kidney donor Other No family history of adverse response to anesthesia No family history of kidney disease Social History Smoking Status: Former smoker Tobacco Type: Cigarettes Second Hand Exposure: No; Hx Alcohol Use: No Hx Substance Use: No Preferred Language: Tajik Communication Ability: Effective Car Mechanic Required: No Beliefs That Will Affect Care: Islam marital status: Current Living Situation: Spouse Current Living Situation Comment: Other Information That Helps Us Care for You: No Feels Safe at Home: Yes Safety Concerns: Feels Safe At This Time Assistive Devices: Glasses Review of Systems Review of Systems: Constitutional: No fever, sweats or chills, + generalized weakness and lethargy, denies any recent falls Eyes: No diplopia, no worsening or blurred vision ENT: normal hearing, no trouble swallowing Respiratory: + Occasional cough, no sputum, dyspnea at rest or on exertion Cardiovascular: No chest pain, tightness or palpitations Abdomen: No pain, + intermittent nausea, poor p.o. intake, no vomiting, diarrhea or constipation. Takes MiraLAX daily. Musculoskeletal: No joint pain, calf pain, swelling Neurologic: + Generalized weakness, no numbness/tingling, or balance problems Psychiatric: No anxiety or depression Skin: No rash or itch Physical Exam Physical Exam: General: awake, alert, no apparent distress, + appears older than stated age, + pallor Head: Normocephalic, atraumatic ENT: PERRL, EOMI, no pharyngeal exudate, mucous membranes slightly dry Chest: Clear to auscultation, on room air, no adventitious breath sounds Cardiac: Regular rate and rhythm, no murmur, no JVD, normal peripheral pulses, good capillary refill Abdominal: NABS x 4 quadrants, soft, nondistended, nontender to palpation, no rebound or guarding Extremities: Normal inspection, no peripheral edema or erythema, calfs nontender to palpation Psych: Normal mood and affect Neuro: AAO x 3, strength intact bilaterally and rated 5/5, no motor deficits, speech is clear, no peripheral sensory deficits Results & Data Results & Data ([facility]) Vital Signs (Past 12 Hours) Vital Signs Temp Pulse Pulse Resp BP BP Pulse Ox 02/16/22 11:35 72 20 132/83 99 02/16/22 11:13 02/16/22 10:10 37.2 C 76 20 101/66 99 O2 Del Method 02/16/22 11:35 Room Air 02/16/22 11:13 Room Air 02/16/22 10:10 Room Air Laboratory Results 02/16/22 12:58 Aerobic Blood Culture - Pending Blood Anaerobic Blood Culture - Pending 02/16/22 12:35 Aerobic Blood Culture - Pending Blood Anaerobic Blood Culture - Pending 02/16/22 02/16/22 02/16/22 12:58 12:00 10:55 WBC RBC Hgb Hct MCV MCH MCHC RDW Std Deviation RDW Coeff of Delia Plt Count MPV Immature Gran % (Auto) Neut % (Auto) Lymph % (Auto) [place] % (Auto) Eos % (Auto) Baso % (Auto) Neut # (Auto) Lymph # (Auto) [place] # (Auto) Eos # (Auto) Baso # (Auto) Immature Gran # (Auto) Ovalocytes Sodium Potassium Chloride Carbon Dioxide Anion Gap BUN Creatinine Est Cr Clr Drug Dosing Est GFR ( Amer) Est GFR (Non-Af Amer) BUN/Creatinine Ratio Glucose Lactate 1.0 Calcium Total Bilirubin AST ALT Alkaline Phosphatase Total Protein Albumin Globulin Albumin/Globulin Ratio SARS-CoV-2 (PCR) POSITIVE A* Influenza Type A (PCR) Negative Influenza Type B (PCR) Negative RSV (RT-PCR) Negative Blood Type A Positive Antibody Screen NEGATIVE Crossmatch See Detail 02/16/22 02/16/22 10:55 10:55 WBC 1.40 L RBC 1.62 L Hgb 5.2 L* Hct 14.8 L* MCV 91.4 MCH 32.1 MCHC 35.1 RDW Std Deviation 48.5 H RDW Coeff of Delia 15.0 H Plt Count 10 L* MPV 10.8 Immature Gran % (Auto) 0.0 Neut % (Auto) 40.0 Lymph % (Auto) 53.6 [place] % (Auto) 5.7 Eos % (Auto) 0.7 Baso % (Auto) 0.0 Neut # (Auto) 0.56 L* Lymph # (Auto) 0.75 L [place] # (Auto) 0.08 L Eos # (Auto) 0.01 Baso # (Auto) 0.00 Immature Gran # (Auto) 0.00 Ovalocytes 1+ Sodium 133 L Potassium 4.2 Chloride 103 Carbon Dioxide 18 L Anion Gap 12 H BUN 55 H Creatinine 2.48 H Est Cr Clr Drug Dosing 25.8 Est GFR ( Amer) 25.4 Est GFR (Non-Af Amer) 21.9 BUN/Creatinine Ratio 22.2 H Glucose 97 Lactate Calcium 8.9 Total Bilirubin 0.8 AST 18 ALT 12 Alkaline Phosphatase 100 Total Protein 6.6 Albumin 4.1 Globulin 2.5 Albumin/Globulin Ratio 1.6 SARS-CoV-2 (PCR) Influenza Type A (PCR) Influenza Type B (PCR) RSV (RT-PCR) Blood Type Antibody Screen Crossmatch Diagnostic Findings Chest X-Ray 02/16/22 12:08 SINGLE VIEW CHEST CLINICAL HISTORY: Cough FINDINGS: An AP, portable, upright chest radiograph is compared to study dated 01/28/2022. The patient is status post midline sternotomy and cardiac valve surgery. A 2-lead cardiac pacemaker is unchanged in position and partially obscures the left upper chest. The heart is enlarged. There is prominence of the pulmonary vasculature. The lungs and pleural spaces are clear noting bibasilar atelectasis. No pneumothorax is seen. The bony thorax is grossly intact. IMPRESSION: 1. Cardiomegaly and cardiac pacemaker with prominence of the pulmonary vasculature. Correlate clinically for evidence of fluid overload/mild congestive change. 2. No airspace consolidation or large pleural effusion is identified. ACT 112: Negative or not required by law. Electronically signed by: Ray Goff M.D. 02/16/2022 12:30 PM Code Status & VTE Plan Code Status Full code-discussed with patient at bedside Supervising Physician Co-Signing Physician Notes I have seen and examined the patient and have discussed the case with the provider above. I agree with the assessment and plan as stated with the following exceptions. The patient is a 51-year-old female with known lymphoma with immunotherapy on hold, history of kidney transplant on cyclosporine therapy and cold agglutinin anemia with history of aortic valve replacement who presents with weakness and lethargy over the past few days. She has been diagnosed with COVID-19. She is not having issues with hypoxia but reports feeling lightheaded and dizzy. Work- up in the ER today revealed pancytopenia with a white blood cell count of 1.4 and ANC of 560, hemoglobin 5.2, hematocrit 14.8, platelet 10. She denies any bleeding. Sodium is 133, CO2 is 18, creatinine is 2.48 with a baseline of 1.9. Lactate is normal and there is no evidence of sepsis. A chest x-ray reveals possible congestive changes but no airspace consolidation or large pleural effusion identified. For her critical symptomatic anemia she underwent a blood transfusion with 2 packs of red blood cells ordered and 1 pack of pathogen reduced platelets. Cyclosporine was continued and nephrology was consulted for history of renal transplant. Symptomatic therapy including Flonase and cough syrup was offered. Cont supportive care efforts while replacing blood and platelets. DO Rafael
--- NOTE | 2022-02-16 12:31 | XRay Report ---
SINGLE VIEW CHEST CLINICAL HISTORY: Cough FINDINGS: An AP, portable, upright chest radiograph is compared to study dated 01/28/2022. The patien t is status post midline sternotomy and cardiac valve surgery. A 2-lead cardiac pacemaker is unchange d in position and partially obscures the left upper chest. The heart is enlarged. There is prominence of the pulmonary vasculature. The lungs and pleural spaces are clear noting bibasilar atelectasis. N o pneumothorax is seen. The bony thorax is grossly intact. IMPRESSION: 1. Cardiomegaly and cardiac pacemaker with prominence of the pulmonary vasculature. Correlate clinica lly for evidence of fluid overload/mild congestive change. 2. No airspace consolidation or large pleural effusion is identified. ACT 112: Negative or not required by law. Electronically signed by: Ray Goff M.D. 02/16/2022 12:30 PM
[2022-02-16 13:13] LABS: Influenza A virus by PCR Negative (Neg); Influenza B virus by PCR Negative (Neg); RSV by PCR Negative (Neg)
[2022-02-16 13:19] LABS: SARS CoV2 RNA(COVID-19) Ceph POSITIVE (Negative)
[2022-02-16] MEDS ORDERED: LABETALOL HCL 200 MG TAB PO ONE (14:00)
[2022-02-16] MEDS ORDERED: METAXALONE 800 MG TABLET PO ONE (14:00)
[2022-02-16] MEDS ORDERED: guaiFENesin/CODEINE 100MG/10MG 5ML UDC PO STA (16:13)
[2022-02-16] MEDS ORDERED: ACETAMINOPHEN 325 MG TAB PO PRN (16:31)
[2022-02-16] MEDS ORDERED: busPIRone 5 MG TAB PO PRN (16:31)
[2022-02-16] MEDS ORDERED: ONDANSETRON 4 MG OD TAB PO PRN (17:16)
[2022-02-16] MEDS: METOCLOPRAMIDE HCL 5 MG TABLET PO PRN (19:06)
[2022-02-16] MEDS: oxyCODONE HCL IR 5 MG TAB (IMMEDIATE RELEASE) PO PRN (19:34)
[2022-02-16] MEDS: MEMANTINE HCL 5 MG TAB PO SCH (20:43)
[2022-02-16] MEDS: ASCORBIC ACID 500 MG TAB PO SCH ×2 (20:43→21:53)
[2022-02-16] MEDS: amLODIPine BESYLATE 5 MG TAB PO SCH (20:44)
[2022-02-16] MEDS: LABETALOL HCL 300 MG TAB PO SCH (20:44)
[2022-02-16] MEDS: cycloSPORINE 25 MG CAP PO SCH (20:45)
[2022-02-16] MEDS: ROSUVASTATIN CALCIUM 5 MG TAB PO SCH (20:46)
[2022-02-16] MEDS: PANTOprazole 40 MG TAB PO SCH (20:46)
[2022-02-16] MEDS: SODIUM BICARBONATE 650 MG TAB PO SCH (20:46)
[2022-02-16] MEDS: FAMOTIDINE 20 MG TAB PO SCH (20:47)
[2022-02-16] MEDS: MIRTAZAPINE SOLTAB 15 MG PO SCH (20:47)
[2022-02-16] MEDS ORDERED: BACLOFEN 10 MG TAB PO PRN (21:00)
[2022-02-16] MEDS: traMADol HCL 50 MG TABLET PO SCH (22:03)
[2022-02-16] MEDS ORDERED: METAXALONE 800 MG TABLET PO STA (22:35)
[2022-02-16] MEDS: ACETAMINOPHEN 325 MG TAB PO PRN (23:30)
[2022-02-17 04:33] LABS: BUN Creatinine Ratio 22.5 (10-20); Calcium 8.4 mg/dl (8.5-10.1); Creatinine Clr Calc Pharmacy 28.8 ml/min; Potassium 3.9 mmol/L (3.5-5.1)
[2022-02-17 05:05] LABS: Hematocrit (blood only) 20.2 % (34.1-44.9); Hemoglobin 7.2 g/dl (12.0-16.0); Mean Corpuscular Hemoglobin 31.3 pg (25.0-34.0); Mean Corpuscular Hgb Conc 35.6 g/dL (32.0-36.0); Mean Corpuscular Volume 87.8 fL (80.0-100.0); Mean Platelet Volume 11.7 fL (9.4-12.3); Platelet Count 15 K/uL (130-400); RDW Coefficient of Variation 16.7 % (11.5-14.5); White Blood Count 2.24 K/ul (4.8-10.8)
[2022-02-17 05:10] LABS: Eosinophils # (manual) 0.02 K/uL (0-0.50); Eosinophils % (manual) 1 %; Large Granular Lymph # (manua 0.67 K/uL; Large Granular Lymph % (manual) 30 %; Lymphocytes # (manual) 1.03 K/uL (1.2-3.4); Lymphocytes % (manual) 46 %; Monocytes # (manual) 0.02 K/uL (0.24-0.82); Monocytes % (manual) 1 %; Neutrophils # (manual) 0.52 K/uL (1.4-6.5); Neutrophils % (manual) 23 %; Ovalocytes 1+; Platelet Estimate Signific. Decreased (Normal)
[2022-02-17] MEDS: oxyCODONE HCL IR 5 MG TAB (IMMEDIATE RELEASE) PO PRN ×3 (05:43→19:39)
[2022-02-17] MEDS: LABETALOL HCL 300 MG TAB PO SCH ×3 (05:49→19:43)
[2022-02-17] MEDS ORDERED: TRIAMCINOLONE ACET NASAL SPRAY 10.8ML BTL SCH (09:00)
[2022-02-17] MEDS: ASCORBIC ACID 500 MG TAB PO SCH ×4 (09:37→21:12)
[2022-02-17] MEDS: traMADol HCL 50 MG TABLET PO SCH ×2 (09:37→21:28)
[2022-02-17] MEDS: PANTOprazole 40 MG TAB PO SCH ×2 (09:38→21:11)
[2022-02-17] MEDS: MAGNESIUM CHLORIDE W/CALCIUM 64MG DELAYED REL TAB PO SCH (09:38)
[2022-02-17] MEDS: ZINC SULFATE 220 MG CAPSULE PO SCH (09:38)
[2022-02-17] MEDS: cycloSPORINE 25 MG CAP PO SCH ×2 (09:38→21:12)
[2022-02-17] MEDS: FEXOFENADINE HCL 180 MG TAB PO SCH (09:38)
[2022-02-17] MEDS: MEMANTINE HCL 5 MG TAB PO SCH ×2 (09:38→17:26)
[2022-02-17] MEDS: SODIUM BICARBONATE 650 MG TAB PO SCH ×2 (09:38→21:12)
[2022-02-17] MEDS: FAMOTIDINE 20 MG TAB PO SCH ×2 (09:38→21:09)
[2022-02-17] MEDS: MULTIVITAMIN TAB PO SCH (09:39)
[2022-02-17] MEDS: POLYETHYLENE (MIRALAX) 17 GM PACK PO SCH (09:39)
[2022-02-17] MEDS: predniSONE 2.5 MG TAB PO SCH (09:39)
[2022-02-17] MEDS: METAXALONE 800 MG TABLET PO SCH ×3 (09:39→21:10)
[2022-02-17] MEDS: allopurinoL 300 MG TAB PO SCH (09:39)
[2022-02-17] MEDS: FOLIC ACID 1 MG TAB PO SCH (09:39)
[2022-02-17] MEDS: ADVANCED PROBIOTIC 1250 MG CAPSULE PO SCH (09:39)
[2022-02-17] MEDS: ASPIRIN 81 MG CHEW PO SCH (09:39)
[2022-02-17] MEDS: FLUTICASONE PROPIONATE NA SPR 16 GM BTL SCH (09:40)
--- NOTE | 2022-02-17 11:23 | Consultation Report ---
NEPHROLOGY CONSULTATION NOTE REASON FOR CONSULTATION: The patient with kidney transplant with abnormal kidney function. HISTORY OF PRESENT ILLNESS: The patient is a 51-year-old female with very complicated medical history including marginal zone lymphoma, cold agglutinin anemia, closely followed by hematology and she is currently getting ibrutinib for chemotherapy and last received on 01/30/2022 and since then has been on hold because of low blood cell counts. She is s/p kidney transplant done 30 plus years ago and ESRD was caused by membranous glomerulonephritis. First kidney transplant done in 1989, the second kidney transplant was done in 1990. Also has extensive cardiac problem with heart valve replacement. She was sent over to the hospital because of abnormal labs showing severe pancytopenia with very low hemoglobin and platelet count. She was also having poor appetite, cough, congestion for the last few days. She has been found to be COVID-19 positive and is currently in isolation. Since being admitted, she has received 2 units of blood transfusion and 1 unit of platelet transfusion. She feels slightly better following that. As for the renal function, it seems fairly stable. Current creatinine is 2.22, which is pretty much within her baseline. She is on a very minimal immunosuppressive medicine as an outpatient because of her perfectly matched kidney. ALLERGIES: REVIEWED AND IS PER THE H AND P AND RECONCILIATION LIST. MEDICATIONS: Home medication list was reviewed in full detail and is as per the reconciliation list. She takes cyclosporine 50 mg twice daily for immunosuppression. Full medication list was reviewed. PAST MEDICAL AND SURGICAL HISTORY: As detailed in HPI unless stated otherwise, autoimmune hemolytic anemia, cold agglutinin type; aortic regurgitation, status post bioprosthetic AVR; anxiety; history of acute pancreatitis; history of UTI; chronic back pain; history of chronic pancreatitis; chronic kidney disease stage IV, with a baseline creatinine around 2-2.5; history of ESBL bacterial infection; hypertension; gastroparesis; GERD; history of DVT; history of Herpes Zoster; history of membranous glomerulonephritis causing renal failure and subsequent renal transplantation; history of kidney stone; severe pancytopenia; marginal zone lymphoma, currently on ibrutinib; renal transplant recipient done twice 1989 and then in 1990; history of ulcerative colitis; cardiac pacemaker; history of cardiac catheterization, no stent required; tonsillectomy; adenoidectomy; lithotripsy; history of cystoscopy. FAMILY HISTORY: Negative for renal disease or dialysis. SOCIAL HISTORY: Former smoker. She is and lives with her . 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 REVIEW OF SYSTEMS: Positive for cough, congestion, some shortness of breath, weakness, chills. Otherwise, 12 systems reviewed and negative. PHYSICAL EXAMINATION: GENERAL: A middle-aged white female who does appear to be sick at this time. She is not in overt respiratory distress. She is awake, alert, oriented x3. VITAL SIGNS: Blood pressure is 116/74, pulse rate 63, temperature 37.4, 97% on 2 liter nasal cannula. HEENT: Mucous membranes are moist. NECK: Supple. No jugular venous distention. CHEST: Bilateral decreased breath sounds, occasional crackles. CARDIOVASCULAR: S1 and S2, regular. Systolic murmur heard. ABDOMEN: Soft, nontender. EXTREMITIES: Show no edema. LABORATORY TESTS: Reviewed from this morning, sodium 134, potassium 3.9, BUN 50, creatinine 2.22, calcium 8.4. Hemoglobin was 5.2 on admission yesterday, WBC count was 1.4, platelet count was 10,000 this morning. After platelet and blood transfusion, hemoglobin is up to 7.2 and platelet count is up to 15,000. Blood culture is pending, as of now negative. She is positive for COVID, influenza and RSV negative. Chest x-ray shows mild pulmonary congestion. ASSESSMENT AND PLAN: A 51-year-old female with very extensive medical history as detailed in H and P. Specifically, status post kidney transplant in 1989 and then in 1990 with a baseline chronic kidney disease IV with baseline creatinine in the low to mid 2s now admitted with severe pancytopenia requiring transfusion of blood products, as well as COVID-19. I have been consulted for abnormal kidney function in a kidney transplant patient. 1. Status post living donor renal transplant from her mother 31 years ago. Current creatinine of 2.22 is within her baseline and no further workup is needed. This kidney transplant has been going for more than 30 years and it is still fairly good. She is on very minimal immunosuppressive as an outpatient and which can be continued for the time being. No need to change anything. We do not need to check the level. 2. Pancytopenia. This is being directed by hematology and is the primary problem at this time. 3. COVID-19 infection. As per primary team, we will continue to follow the patient while she is inpatient. Thank you very much for the consult. Job ID: [id number] ELE
--- NOTE | 2022-02-17 11:34 | Hospitalist Progress Note ---
Date of Service February 17, 2022 Assessment & Plan (1) COVID-19 virus infection: (2) Pancytopenia: (3) Autoimmune hemolytic anemia: (4) Cold agglutinin disease: (5) Marginal zone lymphoma: (6) H/O aortic valve replacement: (7) Kidney transplant recipient: Plan: Past medical history of autoimmune hemolytic anemia, marginal zone lymphoma (previously on ibrutinib), membranous glomera nephritis status post second kidney transplant in 1980. Admitted with weakness and pancytopenia. Found to have COVID infection. Received 2 units of packed RBC and 1 unit of platelets. Hemoglobin today improved to 7.2. Platelets 15,000 Creatinine down trended to 2.2 which is her baseline. Plan; Discussed with her oncologist; Dr. Clemons. Parvovirus IgM and IgG sent as per recommendation. CBC to be monitored daily. Transfuse platelets if less than 10,000. As per for COVID infection; patient is unvaccinated. Chest x-ray suggestive of volume overload than atypical pneumonia. We will continue to monitor her respiratory status; oxygen as needed to keep saturation above 92%. No remdesivir given her CKD. On prednisone 2.5 at home; can increase if patient shows signs of COVID-19 pneumonia. Nephrology on board; recommend to continue her outpatient immunosuppressant. Outpatient follow-up with oncology for possible bone marrow biopsy as per her oncologist to review the cause for pancytopenia. CODE: Full code DVT- SCDs Admission and Anticipated Discharge Date Admission Date: February 16, 2022 Subjective Patient seen and examined at bedside. Patient reports improved energy and improvement in weakness after the transfusions overnight. Review of Systems Review of Systems: All systems reviewed & are unremarkable except as noted in Subjective Physical Exam Physical Exam: Constitutional: WD/WN, vitals as above, NAD, sitting up in bed, pleasant, conversing easily Respiratory: Bilateral basilar crackles heard Cardiovascular: RRR, no murmur, no edema Vessels: no JVD or carotid bruit Chest: normal inspection of chest Abdomen: normal bowel sounds, soft, nontender, no hepatosplenomegaly Musculoskeletal: no cyanosis or clubbing, extremities motor strength 5/5 Skin: no rashes, warm and dry normal turgor Neurologic: PERRL, EOMI, accommodation nl, no face palsy, no dysarthria CN's II- XI intact bilaterally and moves all extremities Psychiatric: A+Ox3, euthymic affect Lymphatic: no cervical or axillary lymphadenopathy : deferred Results & Data Results & Data ([facility]) Vital Signs (Past 12 Hours) Vital Signs Temp Pulse Pulse Resp BP Pulse Ox O2 Del Method 02/17/22 08:00 Nasal Cannula 02/17/22 08:33 37.4 C 63 19 116/74 97 Nasal Cannula 02/17/22 07:51 60 02/17/22 05:50 63 118/77 02/17/22 03:57 36.9 C 60 94/58 L 93 Nasal Cannula 02/17/22 00:52 71 02/17/22 00:59 36.8 C 66 94/55 L 92 Nasal Cannula O2 Flow Rate 02/17/22 08:00 2 02/17/22 08:33 2.0 02/17/22 07:51 02/17/22 05:50 02/17/22 03:57 2 02/17/22 00:52 02/17/22 00:59 2
--- NOTE | 2022-02-17 15:47 | XRay Report ---
XR chest 1V portable CLINICAL HISTORY: Follow up on pulmonary edema TECHNIQUE: Single frontal radiograph of the chest was obtained. Comparison: Comparison is made to chest radiograph 11/17/2021 FINDINGS: Median sternotomy wires are unchanged. Dual-lead pacemaker is seen. Cardiomegaly is noted. Previously noted pulmonary edema has improved. However there is a focus of airspace density in the right upper lobe. No evidence of pleural effusion or pneumothorax. IMPRESSION: Interval improvement in pulmonary edema. However there is a right upper lobe airspace opacity which l ikely reflects atelectasis, pneumonia, and/or aspiration. ACT 112: Negative or not required by law. Electronically signed by: Layo Montesinos M.D. 02/17/2022 3:45 PM
--- NOTE | 2022-02-17 16:41 | Electrocardiogram Report ---
Test Reason : Blood Pressure : / mmHG Vent. Rate : 071 BPM Atrial Rate : 071 BPM P-R Int : 206 ms QRS Dur : 168 ms QT Int : 466 ms P-R-T Axes : 063 082 155 degrees QTc Int : 506 ms Atrial sensing, ventricular pacing Left bundle branch block Abnormal ECG When compared with ECG of 21-JAN-2020 17:36, No significant change Confirmed by Genaro Ordoñez ([id number]) on 02/17/2022 4:40:59 PM Referred By: Nhan Clemons Confirmed By:Genaro Ordoñez
--- NOTE | 2022-02-17 16:46 | Electrocardiogram Report ---
Test Reason : Blood Pressure : / mmHG Vent. Rate : 060 BPM Atrial Rate : 060 BPM P-R Int : 202 ms QRS Dur : 178 ms QT Int : 560 ms P-R-T Axes : 085 081 026 degrees QTc Int : 560 ms AV dual-paced rhythm Abnormal ECG When compared with ECG of 17-FEB-2022 05:26, (unconfirmed) No significant change was found Confirmed by Genaro Ordoñez ([id number]) on 02/17/2022 4:46:29 PM Referred By: Nhan Clemons Confirmed By:Genaro Ordoñez
--- NOTE | 2022-02-17 16:46 | Electrocardiogram Report ---
Test Reason : Blood Pressure : / mmHG Vent. Rate : 060 BPM Atrial Rate : 060 BPM P-R Int : 208 ms QRS Dur : 168 ms QT Int : 560 ms P-R-T Axes : 083 080 047 degrees QTc Int : 560 ms AV dual-paced rhythm Abnormal ECG When compared with ECG of 16-FEB-2022 11:32, (unconfirmed) Electronic ventricular pacemaker has replaced Sinus rhythm Confirmed by Genaro Ordoñez ([id number]) on 02/17/2022 4:46:26 PM Referred By: Nhan Clemons Confirmed By:Genaro Ordoñez
[2022-02-17] MEDS: ROSUVASTATIN CALCIUM 5 MG TAB PO SCH (21:08)
[2022-02-17] MEDS: MONTELUKAST SODIUM 10 MG TABLET PO SCH (21:09)
[2022-02-17] MEDS: MIRTAZAPINE SOLTAB 15 MG PO SCH (21:10)
[2022-02-17] MEDS: amLODIPine BESYLATE 5 MG TAB PO SCH (21:11)
[2022-02-17] MEDS ORDERED: SODIUM CHLORIDE 0.65% NA SOLN 45 ML (OCEAN) PRN (21:23)
[2022-02-17] MEDS ORDERED: SODIUM CHLORIDE 0.65% NA SOLN 45 ML (OCEAN) ONE (21:25)
[2022-02-18] MEDS: ZOLPIDEM TARTRATE 5 MG TAB PO PRN (00:50)
[2022-02-18] MEDS: ACETAMINOPHEN 325 MG TAB PO PRN ×2 (00:52→16:52)
[2022-02-18] MEDS: oxyCODONE HCL IR 5 MG TAB (IMMEDIATE RELEASE) PO PRN ×4 (00:52→19:34)
[2022-02-18] MEDS: allopurinoL 300 MG TAB PO SCH (07:42)
[2022-02-18] MEDS: cycloSPORINE 25 MG CAP PO SCH ×2 (07:43→21:22)
[2022-02-18] MEDS: LABETALOL HCL 300 MG TAB PO SCH ×3 (07:43→19:34)
[2022-02-18] MEDS: MAGNESIUM CHLORIDE W/CALCIUM 64MG DELAYED REL TAB PO SCH (07:43)
[2022-02-18] MEDS: ZINC SULFATE 220 MG CAPSULE PO SCH (07:43)
[2022-02-18] MEDS: FAMOTIDINE 20 MG TAB PO SCH ×2 (07:43→21:12)
[2022-02-18] MEDS: MEMANTINE HCL 5 MG TAB PO SCH ×2 (07:44→17:34)
[2022-02-18] MEDS: ASCORBIC ACID 500 MG TAB PO SCH ×4 (07:44→21:13)
[2022-02-18] MEDS: METAXALONE 800 MG TABLET PO SCH ×3 (07:44→21:11)
[2022-02-18] MEDS: FOLIC ACID 1 MG TAB PO SCH (07:44)
[2022-02-18] MEDS: FEXOFENADINE HCL 180 MG TAB PO SCH (07:44)
[2022-02-18] MEDS: predniSONE 2.5 MG TAB PO SCH (07:44)
[2022-02-18] MEDS: MULTIVITAMIN TAB PO SCH (07:45)
[2022-02-18] MEDS: SODIUM BICARBONATE 650 MG TAB PO SCH ×2 (07:45→21:21)
[2022-02-18] MEDS: ADVANCED PROBIOTIC 1250 MG CAPSULE PO SCH (07:45)
[2022-02-18] MEDS: PANTOprazole 40 MG TAB PO SCH ×2 (07:45→21:14)
[2022-02-18] MEDS: FLUTICASONE PROPIONATE NA SPR 16 GM BTL SCH (07:51)
[2022-02-18] MEDS: busPIRone 5 MG TAB PO SCH ×3 (07:52→21:20)
[2022-02-18] MEDS: POLYETHYLENE (MIRALAX) 17 GM PACK PO SCH (07:52)
[2022-02-18] MEDS: ASPIRIN 81 MG CHEW PO SCH (08:40)
[2022-02-18] MEDS: traMADol HCL 50 MG TABLET PO SCH ×2 (08:40→21:58)
[2022-02-18 08:57] LABS: Albumin Globulin Ratio 1.5 (0.9-2); Albumin Level 3.5 gm/dl (3.4-5.0); BUN Creatinine Ratio 25.8 (10-20); Bilirubin,Total 0.7 mg/dl (0.2-1.0); Calcium 8.1 mg/dl (8.5-10.1); Creatinine Clr Calc Pharmacy 33.7 ml/min; Est GFR (Non-African American) 30.2 ml/min; Globulin 2.3 gm/dl (2.5-4.0); Potassium 3.8 mmol/L (3.5-5.1); Total Protein 5.8 gm/dl (6.0-8.3)
[2022-02-18 09:13] LABS: Hematocrit (blood only) 18.9 % (34.1-44.9); Hemoglobin 6.7 g/dl (12.0-16.0)
[2022-02-18 09:14] LABS: Mean Corpuscular Hemoglobin 31.6 pg (25.0-34.0); Mean Corpuscular Hgb Conc 35.4 g/dL (32.0-36.0); Mean Corpuscular Volume 89.2 fL (80.0-100.0); Mean Platelet Volume 12.4 fL (9.4-12.3); Platelet Count 11 K/uL (130-400); RDW Coefficient of Variation 16.2 % (11.5-14.5); RDW Standard Deviation 52.2 fL (36.4-46.3); Red Blood Count 2.12 M/uL (3.93-5.22); White Blood Count 1.84 K/ul (4.8-10.8)
[2022-02-18 09:45] LABS: Lymphocytes # (manual) 1.42 K/uL (1.2-3.4); Monocytes # (manual) 0.02 K/uL (0.24-0.82); Ovalocytes 1+
[2022-02-18] MEDS ORDERED: SODIUM CHLORIDE 0.9% 250 ML IV PRN (09:54)
--- NOTE | 2022-02-18 13:18 | Hospitalist Progress Note ---
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 Admitted with weakness and pancytopenia. Found to have COVID infection. Received 2 units of packed RBC and 1 unit of platelets. Hemoglobin improved to 7.2 after transfusion; down trended to 6.7 today. Platelets 15,000 > 56334 Creatinine down trended to 1.9 which is at baseline. Plan; Discussed with her oncologist; Dr. Clemons. Parvovirus IgM and IgG sent as per recommendation. Transfuse 1 unit of packed RBC and 1 unit of platelets; both leukocyte reduced. As per for COVID infection; patient is unvaccinated. Chest x-ray suggestive of volume overload than atypical pneumonia. We will continue to monitor her respiratory status; oxygen as needed to keep saturation above 92%. No remdesivir given her CKD. On prednisone 2.5 at home; can increase if patient shows signs of COVID-19 pneumonia. Nephrology on board; recommend to continue her outpatient immunosuppressant. Outpatient follow-up with oncology for possible bone marrow biopsy as per her oncologist to review the cause for pancytopenia. CODE: Full code DVT- SCDs Admission and Anticipated Discharge Date Admission Date: February 16, 2022 Subjective Patient is seen and examined at bedside. She reports weakness compared to yesterday. no Episode of fever overnight. Urine output of 2650 mL Review of Systems Review of Systems: All systems reviewed & are unremarkable except as noted in Subjective Physical Exam Physical Exam: Constitutional: WD/WN, vitals as above, NAD, sitting up in bed, pleasant, conversing easily Respiratory: Bilateral basilar crackles heard Cardiovascular: RRR, no murmur, no edema Vessels: no JVD or carotid bruit Chest: normal inspection of chest Abdomen: normal bowel sounds, soft, nontender, no hepatosplenomegaly Musculoskeletal: no cyanosis or clubbing, extremities motor strength 5/5 Skin: no rashes, warm and dry normal turgor Neurologic: PERRL, EOMI, accommodation nl, no face palsy, no dysarthria CN's II- XI intact bilaterally and moves all extremities Psychiatric: A+Ox3, euthymic affect Lymphatic: no cervical or axillary lymphadenopathy : deferred Results & Data Results & Data ([facility]) Vital Signs (Past 12 Hours) Vital Signs Temp Pulse Pulse Resp BP BP Pulse Ox 02/18/22 12:55 37.6 C H 69 20 110/72 93 02/18/22 11:55 36.9 C 75 20 119/74 95 02/18/22 11:25 36.9 C 75 20 119/75 93 02/18/22 11:10 37.3 C 74 20 118/75 95 02/18/22 10:51 37.2 C 77 20 118/74 95 02/18/22 08:00 65 02/18/22 08:00 36.8 C 79 18 135/73 100 O2 Del Method O2 Flow Rate 02/18/22 12:55 02/18/22 11:55 02/18/22 11:25 02/18/22 11:10 02/18/22 10:51 02/18/22 08:00 02/18/22 08:00 Nasal Cannula 2 Laboratory Results Laboratory Results WBC 1.84 K/ul (4.8-10.8) L 02/18/22 05:26 RBC 2.12 M/uL (3.93-5.22) L 02/18/22 05:26 Hgb 6.7 g/dl (12.0-16.0) L* 02/18/22 05:26 Hct 18.9 % (34.1-44.9) L* 02/18/22 05:26 MCV 89.2 fL (80.0-100.0) 02/18/22 05:26 MCH 31.6 pg (25.0-34.0) 02/18/22 05:26 MCHC 35.4 g/dL (32.0-36.0) 02/18/22 05:26 RDW Std Deviation 52.2 fL (36.4-46.3) H 02/18/22 05:26 RDW Coeff of Delia 16.2 % (11.5-14.5) H 02/18/22 05:26 Plt Count 11 K/uL (130-400) L* 02/18/22 05:26 MPV 12.4 fL (9.4-12.3) H 02/18/22 05:26 Immature Gran % (Auto) 0.0 % 02/16/22 10:55 Neut % (Auto) 40.0 % 02/16/22 10:55 Lymph % (Auto) 53.6 % 02/16/22 10:55 [place] % (Auto) 5.7 % 02/16/22 10:55 Eos % (Auto) 0.7 % 02/16/22 10:55 Baso % (Auto) 0.0 % 02/16/22 10:55 Neut # (Auto) 0.56 K/uL (1.4-6.5) L* 02/16/22 10:55 Lymph # (Auto) 0.75 K/uL (1.2-3.4) L 02/16/22 10:55 [place] # (Auto) 0.08 K/uL (0.24-0.82) L 02/16/22 10:55 Eos # (Auto) 0.01 K/uL (0-0.50) 02/16/22 10:55 Baso # (Auto) 0.00 K/uL (0-0.2) 02/16/22 10:55 Immature Gran # (Auto) 0.00 K/uL (0.00-0.02) 02/16/22 10:55 Neutrophils % (Manual) 22 % 02/18/22 05:26 Lymphocytes % (Manual) 77 % 02/18/22 05:26 Monocytes % (Manual) 1 % 02/18/22 05:26 Eosinophils % (Manual) 1 % 02/17/22 03:33 Neutrophils # (Manual) 0.40 K/uL (1.4-6.5) L 02/18/22 05:26 Lymphocytes # (Manual) 1.42 K/uL (1.2-3.4) 02/18/22 05:26 Monocytes # (Manual) 0.02 K/uL (0.24-0.82) L 02/18/22 05:26 Eosinophils # (Manual) 0.02 K/uL (0-0.50) 02/17/22 03:33 Large Granular Lymphs 30 % 02/17/22 03:33 # Lrg Granular Lymphs 0.67 K/uL 02/17/22 03:33 Platelet Estimate Signific. Decreased (Normal) L 02/17/22 03:33 Ovalocytes 1+ 02/18/22 05:26 Sodium 133 mmol/L (136-145) L 02/18/22 05:26 Potassium 3.8 mmol/L (3.5-5.1) 02/18/22 05:26 Chloride 104 mmol/L (98-107) 02/18/22 05:26 Carbon Dioxide 21 mmol/L (21-32) 02/18/22 05:26 Anion Gap 8 (3-11) 02/18/22 05:26 BUN 49 mg/dl (6-23) H 02/18/22 05:26 Creatinine 1.90 mg/dl (0.6-1.2) H D 02/18/22 05:26 Est Cr Clr Drug Dosing 33.7 ml/min 02/18/22 05:26 Est GFR ( Amer) 35.0 ml/min 02/18/22 05:26 Est GFR (Non-Af Amer) 30.2 ml/min 02/18/22 05:26 BUN/Creatinine Ratio 25.8 (10-20) H 02/18/22 05:26 Glucose 91 mg/dl (70-99(Fasting)) 02/18/22 05:26 Lactate 1.0 mmol/L (0.4-2.0) 02/16/22 12:58 Calcium 8.1 mg/dl (8.5-10.1) L 02/18/22 05:26 Total Bilirubin 0.7 mg/dl (0.2-1.0) 02/18/22 05:26 AST 19 U/L (13-39) 02/18/22 05:26 ALT 11 U/L (7-52) 02/18/22 05:26 Alkaline Phosphatase 77 U/L (34-104) 02/18/22 05:26 Total Protein 5.8 gm/dl (6.0-8.3) L 02/18/22 05:26 Albumin 3.5 gm/dl (3.4-5.0) 02/18/22 05:26 Globulin 2.3 gm/dl (2.5-4.0) L 02/18/22 05:26 Albumin/Globulin Ratio 1.5 (0.9-2) 02/18/22 05:26 SARS-CoV-2 (PCR) POSITIVE (Negative) A* 02/16/22 12:00 Influenza Type A (PCR) Negative (Neg) 02/16/22 12:00 Influenza Type B (PCR) Negative (Neg) 02/16/22 12:00 RSV (RT-PCR) Negative (Neg) 02/16/22 12:00 Blood Type A Positive 02/16/22 10:55 Antibody Screen NEGATIVE 02/16/22 10:55 Crossmatch See Detail 02/16/22 10:55 Impressions Chest X-Ray 02/17/22 09:24 XR chest 1V portable CLINICAL HISTORY: Follow up on pulmonary edema TECHNIQUE: Single frontal radiograph of the chest was obtained. Comparison: Comparison is made to chest radiograph 11/17/2021 FINDINGS: Median sternotomy wires are unchanged. Dual-lead pacemaker is seen. Cardiomegaly is noted. Previously noted pulmonary edema has improved. However there is a focu s of airspace density in the right upper lobe. No evidence of pleural effusion or pneumothorax. IMPRESSION: Interval improvement in pulmonary edema. However there is a right upper lobe airspace opacity which likely reflects atelectasis, pneumonia, and/or aspiration. ACT 112: Negative or not required by law. Electronically signed by: Layo Montesinos M.D. 02/17/2022 3:45 PM
[2022-02-18] MEDS: MIRTAZAPINE SOLTAB 15 MG PO SCH (21:10)
[2022-02-18] MEDS: ROSUVASTATIN CALCIUM 5 MG TAB PO SCH (21:12)
[2022-02-18] MEDS: amLODIPine BESYLATE 5 MG TAB PO SCH (21:14)
[2022-02-18] MEDS: MONTELUKAST SODIUM 10 MG TABLET PO SCH (21:22)
[2022-02-19] MEDS: ACETAMINOPHEN 325 MG TAB PO PRN ×3 (01:50→21:19)
[2022-02-19] MEDS: oxyCODONE HCL IR 5 MG TAB (IMMEDIATE RELEASE) PO PRN ×4 (01:51→21:00)
[2022-02-19 07:19] LABS: Hematocrit (blood only) 23.7 % (34.1-44.9); Hemoglobin 8.4 g/dl (12.0-16.0); Mean Corpuscular Hemoglobin 30.3 pg (25.0-34.0); Mean Corpuscular Hgb Conc 35.4 g/dL (32.0-36.0); Mean Corpuscular Volume 85.6 fL (80.0-100.0); Platelet Count 9 K/uL (130-400); RDW Coefficient of Variation 15.8 % (11.5-14.5); RDW Standard Deviation 49.2 fL (36.4-46.3); Red Blood Count 2.77 M/uL (3.93-5.22); White Blood Count 1.25 K/ul (4.8-10.8)
[2022-02-19 07:40] LABS: Albumin Globulin Ratio 1.4 (0.9-2); Albumin Level 3.7 gm/dl (3.4-5.0); Bilirubin,Total 0.9 mg/dl (0.2-1.0); Calcium 8.4 mg/dl (8.5-10.1); Creatinine Clr Calc Pharmacy 42.9 ml/min; Est GFR (African American) 46.6 ml/min; Est GFR (Non-African American) 40.2 ml/min; Globulin 2.6 gm/dl (2.5-4.0); Potassium 3.5 mmol/L (3.5-5.1); Total Protein 6.3 gm/dl (6.0-8.3)
[2022-02-19 07:49] LABS: Lymphocytes % (manual) 68 %; Monocytes % (manual) 2 %; Neutrophils % (manual) 31 %; Ovalocytes 1+
[2022-02-19] MEDS: FOLIC ACID 1 MG TAB PO SCH (08:00)
[2022-02-19] MEDS: MAGNESIUM CHLORIDE W/CALCIUM 64MG DELAYED REL TAB PO SCH (08:00)
[2022-02-19] MEDS: SODIUM BICARBONATE 650 MG TAB PO SCH ×2 (08:00→21:23)
[2022-02-19] MEDS: LABETALOL HCL 300 MG TAB PO SCH ×3 (08:00→21:23)
[2022-02-19] MEDS: cycloSPORINE 25 MG CAP PO SCH ×2 (08:01→21:26)
[2022-02-19] MEDS: ADVANCED PROBIOTIC 1250 MG CAPSULE PO SCH (08:01)
[2022-02-19] MEDS: PANTOprazole 40 MG TAB PO SCH ×2 (08:01→21:26)
[2022-02-19] MEDS: busPIRone 5 MG TAB PO SCH ×3 (08:01→21:26)
[2022-02-19] MEDS: predniSONE 2.5 MG TAB PO SCH (08:01)
[2022-02-19] MEDS: MULTIVITAMIN TAB PO SCH (08:01)
[2022-02-19] MEDS: ASCORBIC ACID 500 MG TAB PO SCH ×4 (08:01→21:25)
[2022-02-19] MEDS: ZINC SULFATE 220 MG CAPSULE PO SCH (08:02)
[2022-02-19] MEDS: FEXOFENADINE HCL 180 MG TAB PO SCH (08:02)
[2022-02-19] MEDS: FAMOTIDINE 20 MG TAB PO SCH ×2 (08:02→21:27)
[2022-02-19] MEDS: METAXALONE 800 MG TABLET PO SCH ×3 (08:02→21:26)
[2022-02-19] MEDS: MEMANTINE HCL 5 MG TAB PO SCH ×2 (08:02→17:19)
[2022-02-19] MEDS: allopurinoL 300 MG TAB PO SCH (08:02)
[2022-02-19] MEDS: POLYETHYLENE (MIRALAX) 17 GM PACK PO SCH (08:12)
[2022-02-19] MEDS: ASPIRIN 81 MG CHEW PO SCH (08:12)
[2022-02-19] MEDS: traMADol HCL 50 MG TABLET PO SCH ×2 (08:47→21:21)
[2022-02-19] MEDS: FLUTICASONE PROPIONATE NA SPR 16 GM BTL SCH (09:02)
--- NOTE | 2022-02-19 10:37 | Nephrology Progress Note ---
Date of Service February 19, 2022 Assessment & Plan (1) Kidney transplant recipient: Plan: Patient is status post renal transplant about 30 years ago. She is now admitted with COVID-19 infection. She had acute kidney injury with creatinine in the lower twos. Creatinine downtrending to 1.5 today which is close to baseline. Electrolytes are stable. -Monitor renal function with daily BMP -Continue cyclosporine and prednisone (2) COVID-19 virus infection: Plan: Patient with COVID-19 infection. Respiratory status is stable. Continue supportive management. No need to stop immunosuppression for renal transplant. Admission and Anticipated Discharge Date Admission Date: February 16, 2022 Subjective Seen in follow-up for renal transplant and COVID infection. She feels better today. She did not sleep well due to insomnia which is chronic. No shortness of breath. Review of Systems Review of Systems: All other systems were reviewed and negative except as noted in HPI Physical Exam Physical Exam: General exam: Appears comfortable, no acute distress. On oxygen nasal cannula HEENT: Pupils are equal and reactive to light Neck: No JVD, neck is supple trachea is midline Respiratory system: Clear breath sounds bilaterally. Gastrointestinal: Abdomen is soft, non distended, non tender, bowel sounds are present CVS: Regular rate and rhythm. No murmurs, rubs or gallops Musculoskeletal: No joint or muscle tenderness Extremities: Non tender, no edema, peripheral pulses are present Neuro: Oriented, no tremors, no focal neurological deficits Skin: No rashes Results & Data ([facility]) Vital Signs (Past 12 Hours) Vital Signs Temp Pulse Pulse Pulse Resp BP BP 02/19/22 09:51 37.6 C H 74 20 134/84 02/19/22 08:00 75 20 02/19/22 09:30 36.7 C 84 20 119/71 02/19/22 09:00 37.8 C H 80 20 124/79 02/19/22 08:45 37.6 C H 79 20 122/84 02/19/22 08:23 37.9 C H 82 18 135/87 02/19/22 07:46 02/19/22 07:46 36.9 C 88 22 149/89 H 02/19/22 06:03 67 02/19/22 04:09 37.3 C 64 18 02/19/22 01:52 37.8 C H 73 18 139/82 02/19/22 02:07 02/18/22 23:09 37.1 C 67 18 BP Pulse Ox O2 Del Method O2 Flow Rate 02/19/22 09:51 93 2 02/19/22 08:00 02/19/22 09:30 94 2 02/19/22 09:00 96 2 02/19/22 08:45 96 2 02/19/22 08:23 98 02/19/22 07:46 Nasal Cannula 2 02/19/22 07:46 97 Nasal Cannula 2 02/19/22 06:03 02/19/22 04:09 122/74 96 Nasal Cannula 2 02/19/22 01:52 93 Nasal Cannula 2 02/19/22 02:07 Nasal Cannula 2 02/18/22 23:09 130/81 94 Room Air Laboratory Results 02/19/22 06:48 02/19/22 02/19/22 06:48 06:48 WBC 1.25 L RBC 2.77 L MCV 85.6 MCH 30.3 MCHC 35.4 RDW Std Deviation 49.2 H RDW Coeff of Delia 15.8 H Plt Count 9 L* Albumin 3.7
--- NOTE | 2022-02-19 10:43 | Hospitalist Progress Note ---
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 Admitted with weakness and pancytopenia. Found to have COVID infection. Received 3 units of packed RBC and 2 unit of platelets so far since admission Hemoglobin improved to 8 today. Platelet 9000 today. Creatinine 1.5 today. Plan; We will transfuse 1 unit of leukocyte reduced platelets today. CBC tomorrow AM. As per for COVID infection; patient is unvaccinated. Chest x-ray suggestive of volume overload than atypical pneumonia. We will continue to monitor her respiratory status; oxygen as needed to keep saturation above 92%. No remdesivir given her CKD. On prednisone 2.5 at home; can increase if patient shows signs of COVID-19 pneumonia. Nephrology on board; recommend to continue her outpatient immunosuppressant. Outpatient follow-up with oncology for possible bone marrow biopsy as per her oncologist to review the cause for pancytopenia. CODE: Full code DVT- SCDs Admission and Anticipated Discharge Date Admission Date: February 16, 2022 Subjective Patient seen and examined at bedside. She feels that her weakness have improved after the blood transfusion yesterday. She had a fever overnight. No chills, rigors. She denies increasing shortness of breath, chest pain, abdomen pain or urinary symptoms. Urine output of 3.4 L in last 24 hours. Review of Systems Review of Systems: All systems reviewed & are unremarkable except as noted in Subjective Physical Exam Physical Exam: Constitutional: WD/WN, vitals as above, NAD, sitting up in bed, pleasant, conversing easily Respiratory: Bilateral basilar crackles heard Cardiovascular: RRR, no murmur, no edema Vessels: no JVD or carotid bruit Chest: normal inspection of chest Abdomen: normal bowel sounds, soft, nontender, no hepatosplenomegaly Musculoskeletal: no cyanosis or clubbing, extremities motor strength 5/5 Skin: no rashes, warm and dry normal turgor Neurologic: PERRL, EOMI, accommodation nl, no face palsy, no dysarthria CN's II- XI intact bilaterally and moves all extremities Psychiatric: A+Ox3, euthymic affect Lymphatic: no cervical or axillary lymphadenopathy : deferred Results & Data Results & Data ([facility]) Vital Signs (Past 12 Hours) Vital Signs Temp Pulse Pulse Pulse Resp BP BP 02/19/22 09:51 37.6 C H 74 20 134/84 02/19/22 08:00 75 20 02/19/22 09:30 36.7 C 84 20 119/71 02/19/22 09:00 37.8 C H 80 20 124/79 02/19/22 08:45 37.6 C H 79 20 122/84 02/19/22 08:23 37.9 C H 82 18 135/87 02/19/22 07:46 02/19/22 07:46 36.9 C 88 22 149/89 H 02/19/22 06:03 67 02/19/22 04:09 37.3 C 64 18 02/19/22 01:52 37.8 C H 73 18 139/82 02/19/22 02:07 02/18/22 23:09 37.1 C 67 18 BP Pulse Ox O2 Del Method O2 Flow Rate 02/19/22 09:51 93 2 02/19/22 08:00 02/19/22 09:30 94 2 02/19/22 09:00 96 2 02/19/22 08:45 96 2 02/19/22 08:23 98 02/19/22 07:46 Nasal Cannula 2 02/19/22 07:46 97 Nasal Cannula 2 02/19/22 06:03 02/19/22 04:09 122/74 96 Nasal Cannula 2 02/19/22 01:52 93 Nasal Cannula 2 02/19/22 02:07 Nasal Cannula 2 02/18/22 23:09 130/81 94 Room Air Laboratory Results Laboratory Results WBC 1.25 K/ul (4.8-10.8) L 02/19/22 06:48 RBC 2.77 M/uL (3.93-5.22) L 02/19/22 06:48 Hgb 8.4 g/dl (12.0-16.0) L 02/19/22 06:48 Hct 23.7 % (34.1-44.9) L 02/19/22 06:48 MCV 85.6 fL (80.0-100.0) 02/19/22 06:48 MCH 30.3 pg (25.0-34.0) 02/19/22 06:48 MCHC 35.4 g/dL (32.0-36.0) 02/19/22 06:48 RDW Std Deviation 49.2 fL (36.4-46.3) H 02/19/22 06:48 RDW Coeff of Delia 15.8 % (11.5-14.5) H 02/19/22 06:48 Plt Count 9 K/uL (130-400) L* 02/19/22 06:48 MPV 12.4 fL (9.4-12.3) H 02/18/22 05:26 Immature Gran % (Auto) 0.0 % 02/16/22 10:55 Neut % (Auto) 40.0 % 02/16/22 10:55 Lymph % (Auto) 53.6 % 02/16/22 10:55 [place] % (Auto) 5.7 % 02/16/22 10:55 Eos % (Auto) 0.7 % 02/16/22 10:55 Baso % (Auto) 0.0 % 02/16/22 10:55 Neut # (Auto) 0.56 K/uL (1.4-6.5) L* 02/16/22 10:55 Lymph # (Auto) 0.75 K/uL (1.2-3.4) L 02/16/22 10:55 [place] # (Auto) 0.08 K/uL (0.24-0.82) L 02/16/22 10:55 Eos # (Auto) 0.01 K/uL (0-0.50) 02/16/22 10:55 Baso # (Auto) 0.00 K/uL (0-0.2) 02/16/22 10:55 Immature Gran # (Auto) 0.00 K/uL (0.00-0.02) 02/16/22 10:55 Neutrophils % (Manual) 31 % 02/19/22 06:48 Lymphocytes % (Manual) 68 % 02/19/22 06:48 Monocytes % (Manual) 2 % 02/19/22 06:48 Eosinophils % (Manual) 1 % 02/17/22 03:33 Neutrophils # (Manual) 0.39 K/uL (1.4-6.5) L 02/19/22 06:48 Lymphocytes # (Manual) 0.85 K/uL (1.2-3.4) L 02/19/22 06:48 Monocytes # (Manual) 0.03 K/uL (0.24-0.82) L 02/19/22 06:48 Eosinophils # (Manual) 0.02 K/uL (0-0.50) 02/17/22 03:33 Large Granular Lymphs 30 % 02/17/22 03:33 # Lrg Granular Lymphs 0.67 K/uL 02/17/22 03:33 Platelet Estimate Signific. Decreased (Normal) L 02/17/22 03:33 Ovalocytes 1+ 02/19/22 06:48 Sodium 134 mmol/L (136-145) L 02/19/22 06:48 Potassium 3.5 mmol/L (3.5-5.1) 02/19/22 06:48 Chloride 103 mmol/L (98-107) 02/19/22 06:48 Carbon Dioxide 20 mmol/L (21-32) L 02/19/22 06:48 Anion Gap 11 (3-11) 02/19/22 06:48 BUN 33 mg/dl (6-23) H 02/19/22 06:48 Creatinine 1.50 mg/dl (0.6-1.2) H D 02/19/22 06:48 Est Cr Clr Drug Dosing 42.9 ml/min 02/19/22 06:48 Est GFR ( Amer) 46.6 ml/min 02/19/22 06:48 Est GFR (Non-Af Amer) 40.2 ml/min 02/19/22 06:48 BUN/Creatinine Ratio 22.0 (10-20) H 02/19/22 06:48 Glucose 90 mg/dl (70-99(Fasting)) 02/19/22 06:48 Lactate 1.0 mmol/L (0.4-2.0) 02/16/22 12:58 Calcium 8.4 mg/dl (8.5-10.1) L 02/19/22 06:48 Total Bilirubin 0.9 mg/dl (0.2-1.0) 02/19/22 06:48 AST 22 U/L (13-39) 02/19/22 06:48 ALT 14 U/L (7-52) 02/19/22 06:48 Alkaline Phosphatase 80 U/L (34-104) 02/19/22 06:48 Total Protein 6.3 gm/dl (6.0-8.3) 02/19/22 06:48 Albumin 3.7 gm/dl (3.4-5.0) 02/19/22 06:48 Globulin 2.6 gm/dl (2.5-4.0) 02/19/22 06:48 Albumin/Globulin Ratio 1.4 (0.9-2) 02/19/22 06:48 SARS-CoV-2 (PCR) POSITIVE (Negative) A* 02/16/22 12:00 Influenza Type A (PCR) Negative (Neg) 02/16/22 12:00 Influenza Type B (PCR) Negative (Neg) 02/16/22 12:00 RSV (RT-PCR) Negative (Neg) 02/16/22 12:00 Blood Type A Positive 02/16/22 10:55 Antibody Screen NEGATIVE 02/16/22 10:55 Crossmatch See Detail 02/16/22 10:55 Impressions Chest X-Ray 02/17/22 09:24 XR chest 1V portable CLINICAL HISTORY: Follow up on pulmonary edema TECHNIQUE: Single frontal radiograph of the chest was obtained. Comparison: Comparison is made to chest radiograph 11/17/2021 FINDINGS: Median sternotomy wires are unchanged. Dual-lead pacemaker is seen. Cardiomegaly is noted. Previously noted pulmonary edema has improved. However there is a focus of airspace density in the right upper lobe. No evidence of pleural effusion or pneumothorax. IMPRESSION: Interval improvement in pulmonary edema. However there is a right upper lobe airspace opacity which likely reflects atelectasis, pneumonia, and/or aspiration. ACT 112: Negative or not required by law. Electronically signed by: Layo Montesinos M.D. 02/17/2022 3:45 PM
[2022-02-19] MEDS: cefTRIAXone SODIUM 2,000 MG in DEXTROSE 5% 50 ML IV SCH (18:17)
[2022-02-19] MEDS: MIRTAZAPINE SOLTAB 15 MG PO SCH (21:24)
[2022-02-19] MEDS: ROSUVASTATIN CALCIUM 5 MG TAB PO SCH (21:25)
[2022-02-19] MEDS: MONTELUKAST SODIUM 10 MG TABLET PO SCH (21:27)
[2022-02-19] MEDS: amLODIPine BESYLATE 5 MG TAB PO SCH (23:07)
[2022-02-20] MEDS: ZOLPIDEM TARTRATE 5 MG TAB PO PRN ×2 (00:42→23:53)
[2022-02-20] MEDS: oxyCODONE HCL IR 5 MG TAB (IMMEDIATE RELEASE) PO PRN ×4 (03:12→21:27)
[2022-02-20] MEDS: ACETAMINOPHEN 325 MG TAB PO PRN ×2 (06:19→20:06)
[2022-02-20] MEDS: LABETALOL HCL 300 MG TAB PO SCH ×3 (06:20→19:57)
[2022-02-20 08:38] LABS: BUN Creatinine Ratio 18.2 (10-20); Calcium 8.1 mg/dl (8.5-10.1); Creatinine Clr Calc Pharmacy 36.5 ml/min; Est GFR (African American) 38.4 ml/min; Est GFR (Non-African American) 33.1 ml/min; Potassium 3.8 mmol/L (3.5-5.1)
[2022-02-20] MEDS: traMADol HCL 50 MG TABLET PO SCH ×2 (08:38→21:38)
[2022-02-20] MEDS: ASPIRIN 81 MG CHEW PO SCH (08:38)
[2022-02-20 08:40] LABS: Hematocrit (blood only) 20.7 % (34.1-44.9); Hemoglobin 7.6 g/dl (12.0-16.0); Mean Corpuscular Hemoglobin 31.3 pg (25.0-34.0); Mean Corpuscular Hgb Conc 36.7 g/dL (32.0-36.0); Mean Corpuscular Volume 85.2 fL (80.0-100.0); Platelet Count 7 K/uL (130-400); RDW Coefficient of Variation 15.8 % (11.5-14.5); RDW Standard Deviation 48.7 fL (36.4-46.3); Red Blood Count 2.43 M/uL (3.93-5.22)
[2022-02-20] MEDS: ADVANCED PROBIOTIC 1250 MG CAPSULE PO SCH (08:40)
[2022-02-20 08:41] LABS: Ovalocytes 1+
[2022-02-20] MEDS: cycloSPORINE 25 MG CAP PO SCH (08:41)
[2022-02-20 08:42] LABS: Eosinophils # (auto) 0.01 K/uL (0-0.50); Eosinophils % (auto) 1.3 %; Lymphocytes # (auto) 0.61 K/uL (1.2-3.4); Lymphocytes % (auto) 76.3 %; Monocytes # (auto) 0.02 K/uL (0.24-0.82); Monocytes % (auto) 2.5 %; Neutrophils # (auto) 0.16 K/uL (1.4-6.5); Neutrophils % (auto) 19.9 %
[2022-02-20] MEDS: ASCORBIC ACID 500 MG TAB PO SCH ×4 (08:42→21:28)
[2022-02-20] MEDS: busPIRone 5 MG TAB PO SCH ×3 (08:43→21:27)
[2022-02-20] MEDS: predniSONE 2.5 MG TAB PO SCH (08:43)
[2022-02-20] MEDS: METAXALONE 800 MG TABLET PO SCH ×3 (08:43→21:27)
[2022-02-20] MEDS: FAMOTIDINE 20 MG TAB PO SCH ×2 (08:43→21:27)
[2022-02-20] MEDS: MULTIVITAMIN TAB PO SCH (08:44)
[2022-02-20] MEDS: MAGNESIUM CHLORIDE W/CALCIUM 64MG DELAYED REL TAB PO SCH (08:44)
[2022-02-20] MEDS: PANTOprazole 40 MG TAB PO SCH ×2 (08:44→21:27)
[2022-02-20] MEDS: ZINC SULFATE 220 MG CAPSULE PO SCH (08:45)
[2022-02-20] MEDS: FOLIC ACID 1 MG TAB PO SCH (08:45)
[2022-02-20] MEDS: MEMANTINE HCL 5 MG TAB PO SCH ×2 (08:45→15:29)
[2022-02-20] MEDS: allopurinoL 300 MG TAB PO SCH (08:46)
[2022-02-20] MEDS: FEXOFENADINE HCL 180 MG TAB PO SCH (08:46)
[2022-02-20] MEDS: SODIUM BICARBONATE 650 MG TAB PO SCH ×2 (08:47→21:26)
[2022-02-20] MEDS: FLUTICASONE PROPIONATE NA SPR 16 GM BTL SCH (08:47)
[2022-02-20] MEDS: POLYETHYLENE (MIRALAX) 17 GM PACK PO SCH (08:47)
--- NOTE | 2022-02-20 08:54 | Nephrology Progress Note ---
Date of Service February 20, 2022 Assessment & Plan (1) Kidney transplant recipient: Plan: Patient is status post renal transplant about 30 years ago. She is now admitted with COVID-19 infection and ? UTI emerging. She had acute kidney injury with creatinine in the lower twos. Creatinine 1.8 today. Electrolytes are stable. -Monitor renal function with daily BMP -Continue cyclosporine and prednisone (2) COVID-19 virus infection: Plan: Patient with COVID-19 infection. Respiratory status is stable. Continue supportive management. discussion underawy to stop her very low dose IS for txplt (3) Autoimmune hemolytic anemia: Plan: DIC panel pending (4) Pancytopenia: Plan: marked pancytopenia; primary service discussing w/ [facility] txplt as I have been about ? holding IS Admission and Anticipated Discharge Date Admission Date: February 16, 2022 Subjective feeling ok overall but tires quickly and sob. was incontinent yesterday and notes ongoing frequency/urgency. loose bm yesterday (unusual for her); temp 39.4 this am>c xs pending Review of Systems Review of Systems: All systems reviewed & are unremarkable except as noted in Subjective Physical Exam Constitutional: well developed (on 02nc) and well nourished Eyes: EOM intact bilaterally ENMT: Ears: no external ear abnormality Nose: no external nose abnormality Mouth: + dry oral mucous membranes Neck: no nuchal rigidity Respiratory: normal respiratory effort; no respiratory distress and no labored breathing Auscultation: + diminished lung sounds and + crackles; no wheezes Cardiovascular: Rate/Rhythm: regular rate and regular rhythm Heart Sounds: + murmur Gastrointestinal (Abdomen): Inspection/Auscultation: normal bowel sounds Percussion/Palpation: abdomen soft; abdomen nontender (incl NT RLQ allograft) Musculoskeletal: Extremities: strength 5/5 throughout Skin: no rashes, warm and dry Neurologic: [place], fluent speech, no tremor Results & Data ([facility]) Vital Signs (Past 12 Hours) Vital Signs Temp Pulse Pulse Resp BP Pulse Ox O2 Del Method 02/20/22 07:20 76 02/20/22 06:15 39.4 C H 78 18 131/80 95 Nasal Cannula 02/19/22 22:03 77 02/20/22 04:16 36.9 C 68 18 109/64 94 Room Air 02/19/22 23:04 36.9 C 68 18 130/78 94 Nasal Cannula 02/19/22 22:28 Nasal Cannula 02/19/22 21:18 38.1 C H 76 18 138/84 95 Nasal Cannula O2 Flow Rate 02/20/22 07:20 02/20/22 06:15 3 02/19/22 22:03 02/20/22 04:16 02/19/22 23:04 2 02/19/22 22:28 2 02/19/22 21:18 2 Laboratory Results 02/20/22 07:28 02/20/22 07:28
[2022-02-20] MEDS: DOXYCYCLINE HYCLATE 100 MG CAP PO SCH ×2 (09:09→21:26)
--- NOTE | 2022-02-20 09:59 | Hospitalist Progress Note ---
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 Admitted with weakness and pancytopenia. Found to have COVID infection. Received 3 units of packed RBC and 3 unit of platelets so far since admission WBC count is 800 with neutrophils of 160. Hemoglobin7.6. Platelets 7000 Chest x-ray shows filtrate in right middle lung field Blood culture on 02/16no growth Plan; Patient is febrile and is neutropenic. She reports of urinary tract infection symptoms; will obtain urinalysis. She is currently on ceftriaxone and doxycycline for pneumonia. Blood culture obtained today morning. Discussion was done with Dr. Clemons ( oncologist) over the phone today. He recommends Neupogen 300 mg subcu daily for neutropenia. He also recommend transfusion of 1 unit of platelet to keep platelets above 10,000. Recommend DIC work-up; PT, APTT, fibrinogen sent. As per for COVID infection; patient is unvaccinated. We will continue to monitor her respiratory status; oxygen as needed to keep saturation above 92%. No remdesivir given her CKD. On prednisone 2.5 at home; can increase if patient shows signs of COVID-19 pneumonia. Nephrology on board; recommend to continue her outpatient immunosuppressant. Outpatient follow-up with oncology for possible bone marrow biopsy as per her oncologist to review the cause for pancytopenia. CODE: Full code DVT- SCDs Admission and Anticipated Discharge Date Admission Date: February 16, 2022 Subjective Patient seen and examined at bedside. Patient has been having intermittent fevers overnight and then morning. Patient is currently on 2 L of oxygen; not in any respiratory distress. Review of Systems Review of Systems: All systems reviewed & are unremarkable except as noted in Subjective Physical Exam Physical Exam: Constitutional: WD/WN, vitals as above, NAD, sitting up in bed, pleasant, conversing easily Respiratory: Bilateral vesicular breath sound Cardiovascular: RRR, no murmur, no edema Vessels: no JVD or carotid bruit Chest: normal inspection of chest Abdomen: normal bowel sounds, soft, nontender, no hepatosplenomegaly Musculoskeletal: no cyanosis or clubbing, extremities motor strength 5/5 Skin: no rashes, warm and dry normal turgor Neurologic: PERRL, EOMI, accommodation nl, no face palsy, no dysarthria CN's II- XI intact bilaterally and moves all extremities Psychiatric: A+Ox3, euthymic affect Lymphatic: no cervical or axillary lymphadenopathy : deferred Results & Data Results & Data ([facility]) Vital Signs (Past 12 Hours) Vital Signs Temp Pulse Pulse Resp BP Pulse Ox O2 Del Method 02/20/22 09:45 Nasal Cannula 02/20/22 07:20 76 02/20/22 06:15 39.4 C H 78 18 131/80 95 Nasal Cannula 02/19/22 22:03 77 02/20/22 04:16 36.9 C 68 18 109/64 94 Room Air 02/19/22 23:04 36.9 C 68 18 130/78 94 Nasal Cannula 02/19/22 22:28 Nasal Cannula O2 Flow Rate 02/20/22 09:45 2 02/20/22 07:20 02/20/22 06:15 3 02/19/22 22:03 02/20/22 04:16 02/19/22 23:04 2 02/19/22 22:28 2 Laboratory Results Laboratory Results WBC 0.80 K/ul (4.8-10.8) L* 02/20/22 07:28 RBC 2.43 M/uL (3.93-5.22) L 02/20/22 07:28 Hgb 7.6 g/dl (12.0-16.0) L 02/20/22 07:28 Hct 20.7 % (34.1-44.9) L* 02/20/22 07:28 MCV 85.2 fL (80.0-100.0) 02/20/22 07:28 MCH 31.3 pg (25.0-34.0) 02/20/22 07:28 MCHC 36.7 g/dL (32.0-36.0) H 02/20/22 07:28 RDW Std Deviation 48.7 fL (36.4-46.3) H 02/20/22 07:28 RDW Coeff of Delia 15.8 % (11.5-14.5) H 02/20/22 07:28 Plt Count 7 K/uL (130-400) L* 02/20/22 07:28 MPV 12.4 fL (9.4-12.3) H 02/18/22 05:26 Immature Gran % (Auto) 0.0 % 02/20/22 07:28 Neut % (Auto) 19.9 % 02/20/22 07:28 Lymph % (Auto) 76.3 % 02/20/22 07:28 [place] % (Auto) 2.5 % 02/20/22 07:28 Eos % (Auto) 1.3 % 02/20/22 07:28 Baso % (Auto) 0.0 % 02/20/22 07:28 Neut # (Auto) 0.16 K/uL (1.4-6.5) L* 02/20/22 07:28 Lymph # (Auto) 0.61 K/uL (1.2-3.4) L 02/20/22 07:28 [place] # (Auto) 0.02 K/uL (0.24-0.82) L 02/20/22 07:28 Eos # (Auto) 0.01 K/uL (0-0.50) 02/20/22 07:28 Baso # (Auto) 0.00 K/uL (0-0.2) 02/20/22 07:28 Immature Gran # (Auto) 0.00 K/uL (0.00-0.02) 02/20/22 07:28 Neutrophils % (Manual) 31 % 02/19/22 06:48 Lymphocytes % (Manual) 68 % 02/19/22 06:48 Monocytes % (Manual) 2 % 02/19/22 06:48 Eosinophils % (Manual) 1 % 02/17/22 03:33 Neutrophils # (Manual) 0.39 K/uL (1.4-6.5) L 02/19/22 06:48 Lymphocytes # (Manual) 0.85 K/uL (1.2-3.4) L 02/19/22 06:48 Monocytes # (Manual) 0.03 K/uL (0.24-0.82) L 02/19/22 06:48 Eosinophils # (Manual) 0.02 K/uL (0-0.50) 02/17/22 03:33 Large Granular Lymphs 30 % 02/17/22 03:33 # Lrg Granular Lymphs 0.67 K/uL 02/17/22 03:33 Platelet Estimate Signific. Decreased (Normal) L 02/17/22 03:33 Ovalocytes 1+ 02/20/22 07:28 Sodium 132 mmol/L (136-145) L 02/20/22 07:28 Potassium 3.8 mmol/L (3.5-5.1) 02/20/22 07:28 Chloride 102 mmol/L (98-107) 02/20/22 07:28 Carbon Dioxide 20 mmol/L (21-32) L 02/20/22 07:28 Anion Gap 10 (3-11) 02/20/22 07:28 BUN 32 mg/dl (6-23) H 02/20/22 07:28 Creatinine 1.76 mg/dl (0.6-1.2) H 02/20/22 07:28 Est Cr Clr Drug Dosing 36.5 ml/min 02/20/22 07:28 Est GFR ( Amer) 38.4 ml/min 02/20/22 07:28 Est GFR (Non-Af Amer) 33.1 ml/min 02/20/22 07:28 BUN/Creatinine Ratio 18.2 (10-20) 02/20/22 07:28 Glucose 87 mg/dl (70-99(Fasting)) 02/20/22 07:28 Lactate 1.0 mmol/L (0.4-2.0) 02/16/22 12:58 Calcium 8.1 mg/dl (8.5-10.1) L 02/20/22 07:28 Total Bilirubin 0.9 mg/dl (0.2-1.0) 02/19/22 06:48 AST 22 U/L (13-39) 02/19/22 06:48 ALT 14 U/L (7-52) 02/19/22 06:48 Alkaline Phosphatase 80 U/L (34-104) 02/19/22 06:48 Total Protein 6.3 gm/dl (6.0-8.3) 02/19/22 06:48 Albumin 3.7 gm/dl (3.4-5.0) 02/19/22 06:48 Globulin 2.6 gm/dl (2.5-4.0) 02/19/22 06:48 Albumin/Globulin Ratio 1.4 (0.9-2) 02/19/22 06:48 SARS-CoV-2 (PCR) POSITIVE (Negative) A* 02/16/22 12:00 Influenza Type A (PCR) Negative (Neg) 02/16/22 12:00 Influenza Type B (PCR) Negative (Neg) 02/16/22 12:00 RSV (RT-PCR) Negative (Neg) 02/16/22 12:00 Blood Type A Positive 02/16/22 10:55 Antibody Screen NEGATIVE 02/16/22 10:55 Crossmatch See Detail 02/16/22 10:55 Impressions Chest X-Ray 02/17/22 09:24 XR chest 1V portable CLINICAL HISTORY: Follow up on pulmonary edema TECHNIQUE: Single frontal radiograph of the chest was obtained. Comparison: Comparison is made to chest radiograph 11/17/2021 FINDINGS: Median sternotomy wires are unchanged. Dual-lead pacemaker is seen. Cardiomegaly is noted. Previously noted pulmonary edema has improved. However there is a focus of airspace density in the right upper lobe. No evidence of pleural effusion or pneumothorax. IMPRESSION: Interval improvement in pulmonary edema. However there is a right upper lobe airspace opacity which likely reflects atelectasis, pneumonia, and/or aspiration. ACT 112: Negative or not required by law. Electronically signed by: Layo Montesinos M.D. 02/17/2022 3:45 PM
[2022-02-20] MEDS ORDERED: FILGRASTIM 300 MCG/ML VIAL SC ONE (10:15)
[2022-02-20 10:27] LABS: Fibrinogen 610 mg/dl (184-400); INR 1.1 (0.9-1.1); Partial Thromboplastin Ratio 1.4; Partial Thromboplastin Time 38.7 Seconds (21.0-31.0); Prothrombin Time 11.8 Seconds (9.0-12.0)
[2022-02-20 10:36] LABS: Appearance Urine Clear (Clear); Bacteria Urine Automated Negative (Negative); Bilirubin Urine Negative (Negative); Blood Urine Negative (Negative); Cast Urine Automated 0 /lpf (0-5); Color Urine Yellow; Glucose Urine UA Negative (Negative); Ketones Urine Negative (Negative); Leukocyte Esterase Urine Trace (Negative); Nitrite Urine Negative (Negative); Protein Urine 1+ (Negative); RBC Urine Automated 0-4 /hpf (0-4); Urobilinogen Urine Negative (Negative); pH Urine 6.5 (4.5-7.5)
[2022-02-20] MEDS: METOCLOPRAMIDE HCL 5 MG TABLET PO PRN (15:26)
[2022-02-20] MEDS: cefTRIAXone SODIUM 2,000 MG in DEXTROSE 5% 50 ML IV SCH (16:19)
[2022-02-20] MEDS: MIRTAZAPINE SOLTAB 15 MG PO SCH (21:26)
[2022-02-20] MEDS: ROSUVASTATIN CALCIUM 5 MG TAB PO SCH (21:27)
[2022-02-20] MEDS: MONTELUKAST SODIUM 10 MG TABLET PO SCH (21:27)
[2022-02-20] MEDS: amLODIPine BESYLATE 5 MG TAB PO SCH (21:28)
[2022-02-21] MEDS: oxyCODONE HCL IR 5 MG TAB (IMMEDIATE RELEASE) PO PRN ×3 (03:00→17:47)
[2022-02-21] MEDS: ACETAMINOPHEN 325 MG TAB PO PRN ×2 (03:05→14:15)
[2022-02-21 03:34] LABS: Lymphocytes % (manual) 77 %; Monocytes % (manual) 1 %; Neutrophils % (manual) 22 %
[2022-02-21 08:15] LABS: BUN Creatinine Ratio 17.8 (10-20); Calcium 8.6 mg/dl (8.5-10.1); Creatinine Clr Calc Pharmacy 35.7 ml/min; Est GFR (African American) 37.4 ml/min; Est GFR (Non-African American) 32.3 ml/min; Potassium 3.5 mmol/L (3.5-5.1)
[2022-02-21 08:16] LABS: Hematocrit (blood only) 22.4 % (34.1-44.9); Mean Corpuscular Hemoglobin 31.5 pg (25.0-34.0); Mean Corpuscular Hgb Conc 35.7 g/dL (32.0-36.0); Mean Corpuscular Volume 88.2 fL (80.0-100.0); Ovalocytes 1+; Platelet Count 14 K/uL (130-400); RDW Coefficient of Variation 15.5 % (11.5-14.5); RDW Standard Deviation 49.6 fL (36.4-46.3); Red Blood Count 2.54 M/uL (3.93-5.22)
[2022-02-21 08:17] LABS: Eosinophils # (auto) 0.01 K/uL (0-0.50); Eosinophils % (auto) 0.9 %; Immature Granulocytes # (auto) 0.07 K/uL (0.00-0.02); Immature Granulocytes % (auto) 6.4 %; Lymphocytes # (auto) 0.85 K/uL (1.2-3.4); Lymphocytes % (auto) 77.3 %; Monocytes # (auto) 0.01 K/uL (0.24-0.82); Monocytes % (auto) 0.9 %; Neutrophils # (auto) 0.16 K/uL (1.4-6.5); Neutrophils % (auto) 14.5 %
[2022-02-21] MEDS ORDERED: FILGRASTIM 480 MCG/1.6 ML VIAL SC ONE (09:00)
[2022-02-21] MEDS: PANTOprazole 40 MG TAB PO SCH ×2 (09:14→22:04)
[2022-02-21] MEDS: METAXALONE 800 MG TABLET PO SCH ×3 (09:14→22:05)
[2022-02-21] MEDS: FAMOTIDINE 20 MG TAB PO SCH ×2 (09:14→22:06)
[2022-02-21] MEDS: SODIUM BICARBONATE 650 MG TAB PO SCH ×2 (09:15→22:05)
[2022-02-21] MEDS: traMADol HCL 50 MG TABLET PO SCH ×2 (09:15→22:05)
[2022-02-21] MEDS: DOXYCYCLINE HYCLATE 100 MG CAP PO SCH ×2 (09:15→22:05)
[2022-02-21] MEDS: busPIRone 5 MG TAB PO SCH ×3 (09:15→22:05)
[2022-02-21] MEDS: MEMANTINE HCL 5 MG TAB PO SCH ×2 (09:16→17:46)
[2022-02-21] MEDS: MAGNESIUM CHLORIDE W/CALCIUM 64MG DELAYED REL TAB PO SCH (09:16)
[2022-02-21] MEDS: ASCORBIC ACID 500 MG TAB PO SCH ×4 (09:16→22:05)
[2022-02-21] MEDS: MULTIVITAMIN TAB PO SCH (09:16)
[2022-02-21] MEDS: FEXOFENADINE HCL 180 MG TAB PO SCH (09:17)
[2022-02-21] MEDS: FOLIC ACID 1 MG TAB PO SCH (09:17)
[2022-02-21] MEDS: ADVANCED PROBIOTIC 1250 MG CAPSULE PO SCH (09:18)
[2022-02-21] MEDS: allopurinoL 300 MG TAB PO SCH (09:18)
[2022-02-21] MEDS: ZINC SULFATE 220 MG CAPSULE PO SCH (09:18)
[2022-02-21] MEDS: FLUTICASONE PROPIONATE NA SPR 16 GM BTL SCH (09:19)
[2022-02-21] MEDS: LABETALOL HCL 300 MG TAB PO SCH ×3 (09:19→20:07)
[2022-02-21] MEDS: POLYETHYLENE (MIRALAX) 17 GM PACK PO SCH (09:41)
[2022-02-21] MEDS: ASPIRIN 81 MG CHEW PO SCH (09:41)
[2022-02-21] MEDS: DEXTROSE 5% IV SCH (09:41)
[2022-02-21] MEDS: DEXAMETHASONE IV SCH (09:41)
[2022-02-21] MEDS ORDERED: PIPERACILLIN/TAZOBACTAM 3.375 GM in DEXTROSE 5% 100 ML IV ONE (10:15)
--- NOTE | 2022-02-21 10:28 | Hospitalist Progress Note ---
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 Admitted with weakness and pancytopenia. Found to have COVID infection. Received 3 units of packed RBC and 4 unit of platelets so far since admission WBC count is 1100 with neutrophils of 160. Hemoglobin8.0 Platelets [id number] Chest x-ray shows filtrate in right middle lung field Blood culture on 02/16no growth till date blood cx on 02/20- no growth till date. Creatinine of 1.80 which is near her baseline. DIC ruled out; lab work from 02/20. PT/INR, APTT within normal limits. [id number]. Haptoglobin pending. Discussion was done with Dr. roberts from transplant services in [place] on 02/20/2022. He was recommended to stop cyclosporine and prednisone; start the patient on dexamethasone 50 mg IV daily. Also, recommended patient to be transferred to there for further care and possible bone marrow biopsy. Accepting doctor is Jessica Fisher Plan; Patient continues to spike fever and is neutropenic. Chest x-ray had shown infiltrate in right middle lung field. Antibiotic changed from ceftriaxone to Zosyn. Continue on doxycycline for now. Will repeat chest x-ray to see if there is any further worsening. Cyclosporine and prednisone stopped as per recommendation from transplant services. Patient was given first dose of dexamethasone 50 mg once a day, As per for COVID infection; patient is unvaccinated. We will continue to monitor her respiratory status; oxygen as needed to keep saturation above 92%. No remdesivir given her CKD. Patient to be transferred to [place] for transplant services and potential bone marrow biopsy when bed is available. CODE: Full code DVT- SCDs Admission and Anticipated Discharge Date Admission Date: February 16, 2022 Subjective Overnight, patient reported repeated episode of fever with chills. T-max of 39.5 degrees Celsius. Blood pressure normotensive. Currently on 3.5 L of nasal cannula saturating 93%. Review of Systems Review of Systems: All systems reviewed & are unremarkable except as noted in Subjective Physical Exam Physical Exam: Constitutional: WD/WN, vitals as above, NAD, sitting up in bed, pleasant, conversing easily Respiratory: Bilateral vesicular breath sound Cardiovascular: RRR, no murmur, no edema Vessels: no JVD or carotid bruit Chest: normal inspection of chest Abdomen: normal bowel sounds, soft, nontender, no hepatosplenomegaly Musculoskeletal: no cyanosis or clubbing, extremities motor strength 5/5 Skin: no rashes, warm and dry normal turgor Neurologic: PERRL, EOMI, accommodation nl, no face palsy, no dysarthria CN's II- XI intact bilaterally and moves all extremities Psychiatric: A+Ox3, euthymic affect Lymphatic: no cervical or axillary lymphadenopathy : deferred Results & Data Results & Data ([facility]) Vital Signs (Past 12 Hours) Vital Signs Temp Pulse Pulse Resp BP BP Pulse Ox 02/21/22 07:52 37.3 C 83 24 128/76 96 02/21/22 05:20 37.8 C H 95 02/21/22 04:36 38.4 C H 80 20 121/73 94 02/21/22 04:15 39.4 C H 100 H 18 92 02/21/22 03:00 39.5 C H 76 16 114/72 93 02/21/22 03:35 18 92 02/20/22 23:45 73 02/20/22 23:41 02/20/22 22:51 37.4 C 72 18 127/79 94 O2 Del Method O2 Flow Rate 02/21/22 07:52 Nasal Cannula 3.5 02/21/22 05:20 Nasal Cannula 3.5 02/21/22 04:36 Nasal Cannula 5 02/21/22 04:15 Nasal Cannula 5 02/21/22 03:00 Nasal Cannula 3 02/21/22 03:35 Nasal Cannula 5 02/20/22 23:45 02/20/22 23:41 Nasal Cannula 2 02/20/22 22:51 Nasal Cannula 2 Laboratory Results Laboratory Results WBC 1.10 K/ul (4.8-10.8) L 02/21/22 07:20 RBC 2.54 M/uL (3.93-5.22) L 02/21/22 07:20 Hgb 8.0 g/dl (12.0-16.0) L 02/21/22 07:20 Hct 22.4 % (34.1-44.9) L 02/21/22 07:20 MCV 88.2 fL (80.0-100.0) 02/21/22 07:20 MCH 31.5 pg (25.0-34.0) 02/21/22 07:20 MCHC 35.7 g/dL (32.0-36.0) 02/21/22 07:20 RDW Std Deviation 49.6 fL (36.4-46.3) H 02/21/22 07:20 RDW Coeff of Delia 15.5 % (11.5-14.5) H 02/21/22 07:20 Plt Count 14 K/uL (130-400) L* D 02/21/22 07:20 MPV 12.4 fL (9.4-12.3) H 02/18/22 05:26 Immature Gran % (Auto) 6.4 % 02/21/22 07:20 Neut % (Auto) 14.5 % 02/21/22 07:20 Lymph % (Auto) 77.3 % 02/21/22 07:20 [place] % (Auto) 0.9 % 02/21/22 07:20 Eos % (Auto) 0.9 % 02/21/22 07:20 Baso % (Auto) 0.0 % 02/21/22 07:20 Neut # (Auto) 0.16 K/uL (1.4-6.5) L* 02/21/22 07:20 Lymph # (Auto) 0.85 K/uL (1.2-3.4) L 02/21/22 07:20 [place] # (Auto) 0.01 K/uL (0.24-0.82) L 02/21/22 07:20 Eos # (Auto) 0.01 K/uL (0-0.50) 02/21/22 07:20 Baso # (Auto) 0.00 K/uL (0-0.2) 02/21/22 07:20 Immature Gran # (Auto) 0.07 K/uL (0.00-0.02) H 02/21/22 07:20 Neutrophils % (Manual) 31 % 02/19/22 06:48 Lymphocytes % (Manual) 68 % 02/19/22 06:48 Monocytes % (Manual) 2 % 02/19/22 06:48 Eosinophils % (Manual) 1 % 02/17/22 03:33 Neutrophils # (Manual) 0.39 K/uL (1.4-6.5) L 02/19/22 06:48 Lymphocytes # (Manual) 0.85 K/uL (1.2-3.4) L 02/19/22 06:48 Monocytes # (Manual) 0.03 K/uL (0.24-0.82) L 02/19/22 06:48 Eosinophils # (Manual) 0.02 K/uL (0-0.50) 02/17/22 03:33 Large Granular Lymphs 30 % 02/17/22 03:33 # Lrg Granular Lymphs 0.67 K/uL 02/17/22 03:33 Platelet Estimate Signific. Decreased (Normal) L 02/17/22 03:33 Ovalocytes 1+ 02/21/22 07:20 Peripher Smr Path Cons 02/20/22 07:28 PT 11.8 Seconds (9.0-12.0) 02/20/22 10:00 INR 1.1 (0.9-1.1) 02/20/22 10:00 APTT 38.7 Seconds (21.0-31.0) H 02/20/22 10:00 PTT Ratio 1.4 02/20/22 10:00 Fibrinogen 610 mg/dl (184-400) H 02/20/22 10:00 Sodium 133 mmol/L (136-145) L 02/21/22 07:20 Potassium 3.5 mmol/L (3.5-5.1) 02/21/22 07:20 Chloride 100 mmol/L (98-107) 02/21/22 07:20 Carbon Dioxide 22 mmol/L (21-32) 02/21/22 07:20 Anion Gap 11 (3-11) 02/21/22 07:20 BUN 32 mg/dl (6-23) H 02/21/22 07:20 Creatinine 1.80 mg/dl (0.6-1.2) H 02/21/22 07:20 Est Cr Clr Drug Dosing 35.7 ml/min 02/21/22 07:20 Est GFR ( Amer) 37.4 ml/min 02/21/22 07:20 Est GFR (Non-Af Amer) 32.3 ml/min 02/21/22 07:20 BUN/Creatinine Ratio 17.8 (10-20) 02/21/22 07:20 Glucose 87 mg/dl (70-99(Fasting)) 02/21/22 07:20 Lactate 1.0 mmol/L (0.4-2.0) 02/16/22 12:58 Calcium 8.6 mg/dl (8.5-10.1) 02/21/22 07:20 Total Bilirubin 0.9 mg/dl (0.2-1.0) 02/19/22 06:48 AST 22 U/L (13-39) 02/19/22 06:48 ALT 14 U/L (7-52) 02/19/22 06:48 Alkaline Phosphatase 80 U/L (34-104) 02/19/22 06:48 Total Protein 6.3 gm/dl (6.0-8.3) 02/19/22 06:48 Albumin 3.7 gm/dl (3.4-5.0) 02/19/22 06:48 Globulin 2.6 gm/dl (2.5-4.0) 02/19/22 06:48 Albumin/Globulin Ratio 1.4 (0.9-2) 02/19/22 06:48 Urine Color Yellow 02/20/22 10:25 Urine Appearance Clear (Clear) 02/20/22 10:25 Urine pH 6.5 (4.5-7.5) 02/20/22 10:25 Ur Specific [place] 1.010 (1.000-1.030) 02/20/22 10:25 Urine Protein 1+ (Negative) H 02/20/22 10:25 Urine Glucose (UA) Negative (Negative) 02/20/22 10:25 Urine Ketones Negative (Negative) 02/20/22 10:25 Urine Blood Negative (Negative) 02/20/22 10:25 Urine Nitrite Negative (Negative) 02/20/22 10:25 Urine Bilirubin Negative (Negative) 02/20/22 10:25 Urine Urobilinogen Negative (Negative) 02/20/22 10:25 Ur Leukocyte Esterase Trace (Negative) H 02/20/22 10:25 Urine WBC (Auto) 5-10 /hpf (0-5) H 02/20/22 10:25 Urine RBC (Auto) 0-4 /hpf (0-4) 02/20/22 10:25 U Hyaline Cast (Auto) 0 /lpf (0-5) 02/20/22 10:25 U Epithel Cells (Auto) 5-10 /lpf (0-5) H 02/20/22 10:25 Urine Bacteria (Auto) Negative (Negative) 02/20/22 10:25 SARS-CoV-2 (PCR) POSITIVE (Negative) A* 02/16/22 12:00 Influenza Type A (PCR) Negative (Neg) 02/16/22 12:00 Influenza Type B (PCR) Negative (Neg) 02/16/22 12:00 RSV (RT-PCR) Negative (Neg) 02/16/22 12:00 Blood Type A Positive 02/16/22 10:55 Antibody Screen NEGATIVE 02/16/22 10:55 Crossmatch See Detail 02/16/22 10:55 Impressions Chest X-Ray 02/17/22 09:24 XR chest 1V portable CLINICAL HISTORY: Follow up on pulmonary edema TECHNIQUE: Single frontal radiograph of the chest was obtained. Comparison: Comparison is made to chest radiograph 11/17/2021 FINDINGS: Median sternotomy wires are unchanged. Dual-lead pacemaker is seen. Cardiomegaly is noted. Previously noted pulmonary edema has improved. However there is a focus of airspace density in the right upper lobe. No evidence of pleural effusion or pneumothorax. IMPRESSION: Interval improvement in pulmonary edema. However there is a right upper lobe airspace opacity which likely reflects atelectasis, pneumonia, and/or aspiration. ACT 112: Negative or not required by law. Electronically signed by: Layo Montesinos M.D. 02/17/2022 3:45 PM
--- NOTE | 2022-02-21 11:24 | Nephrology Progress Note ---
Date of Service February 21, 2022 Assessment & Plan (1) Kidney transplant recipient: Plan: Patient is status post renal transplant about 30 years ago. She is now admitted with COVID-19 infection and ? UTI emerging. She had acute kidney injury with creatinine in the lower twos. Creatinine 1.8 today. Electrolytes are stable. -Monitor renal function with daily BMP >at baseline -low dose cyclosporine and prednisone on hold per [facility] [place] (2) COVID-19 virus infection: Plan: Patient with COVID-19 infection. Respiratory status worse today. Continue supportive management (3) Pancytopenia: Plan: marked pancytopenia w/ slight improvement in plts but still critically low. DIC labs negative. -awaiting [facility] [place]nsfer for bm bx (4) Febrile neutropenia: Plan: w/ voiding sx yesterday and worsening hypoxia/ PNA >IS held -cont abtx >f/u pending cxs >UA from yesterday reassuring, no UTI Admission and Anticipated Discharge Date Admission Date: February 16, 2022 Subjective hi temp this am as below and higher 02 needs too. [facility] tx[place] recommending transfer, awaiting bed. she has more dypsnea, fatigue today. ongoing urgency/frequency, borderline incontinence. Review of Systems Review of Systems: All systems reviewed & are unremarkable except as noted in Subjective Physical Exam Constitutional: well developed (on 02nc) and well nourished Eyes: EOM intact bilaterally ENMT: Ears: no external ear abnormality Nose: no external nose abnormality Mouth: + dry oral mucous membranes Neck: no nuchal rigidity Respiratory: normal respiratory effort and + cough (frequent thick hacking); no respiratory distress and no labored breathing Auscultation: + diminished lung sounds and + crackles; no wheezes Cardiovascular: Rate/Rhythm: regular rate and regular rhythm Heart Sounds: + murmur Gastrointestinal (Abdomen): Inspection/Auscultation: normal bowel sounds Percussion/Palpation: abdomen soft; abdomen nontender (incl NT RLQ allograft) Musculoskeletal: Extremities: strength 5/5 throughout Skin: no rashes, warm and dry Neurologic: [place], fluent speech, no tremor Results & Data ([facility]) Vital Signs (Past 12 Hours) Vital Signs Temp Pulse Pulse Resp BP BP Pulse Ox 02/21/22 07:52 37.3 C 83 24 128/76 96 02/21/22 05:20 37.8 C H 95 02/21/22 04:36 38.4 C H 80 20 121/73 94 02/21/22 04:15 39.4 C H 100 H 18 92 02/21/22 03:00 39.5 C H 76 16 114/72 93 02/21/22 03:35 18 92 02/20/22 23:45 73 02/20/22 23:41 O2 Del Method O2 Flow Rate 02/21/22 07:52 Nasal Cannula 3.5 02/21/22 05:20 Nasal Cannula 3.5 02/21/22 04:36 Nasal Cannula 5 02/21/22 04:15 Nasal Cannula 5 02/21/22 03:00 Nasal Cannula 3 02/21/22 03:35 Nasal Cannula 5 02/20/22 23:45 02/20/22 23:41 Nasal Cannula 2 Laboratory Results 02/21/22 07:20 02/21/22 07:20
[2022-02-21] MEDS ORDERED: FILGRASTIM 300 MCG/ML VIAL SC ONE (11:30)
--- NOTE | 2022-02-21 12:31 | XRay Report ---
XR chest 1V portable HISTORY: Cough. Follow up on pnuemonia COMPARISON: Chest 02/17/2022. FINDINGS: No significant change in the right greater than left patchy bilateral airspace opacities. N o pneumothorax. No pleural effusions. Poststernotomy changes, a left-sided pacemaker, and an aortic v alve prosthesis is again noted. The heart remains mildly enlarged. IMPRESSION: No change in the bilateral patchy airspace opacities, right greater than left. This may represent an atypical pneumonitis or asymmetric pulmonary edema ACT 112: Negative or not required by law. Electronically signed by: Hi Rios M.D. 02/21/2022 12:30 PM
[2022-02-21] MEDS: PIPERACILLIN/TAZOBACTAM 3.375 GM in DEXTROSE 5% 100 ML IV SCH (17:46)
[2022-02-21] MEDS: BENZONATATE 100 MG CAPSULE PO PRN (20:29)
[2022-02-21] MEDS: MIRTAZAPINE SOLTAB 15 MG PO SCH (22:04)
[2022-02-21] MEDS: MONTELUKAST SODIUM 10 MG TABLET PO SCH (22:04)
[2022-02-21] MEDS: ROSUVASTATIN CALCIUM 5 MG TAB PO SCH (22:04)
[2022-02-21] MEDS: amLODIPine BESYLATE 5 MG TAB PO SCH (22:06)
[2022-02-22] MEDS: oxyCODONE HCL IR 5 MG TAB (IMMEDIATE RELEASE) PO PRN ×3 (00:21→13:12)
[2022-02-22] MEDS: ZOLPIDEM TARTRATE 5 MG TAB PO PRN (00:22)
[2022-02-22] MEDS: PIPERACILLIN/TAZOBACTAM 3.375 GM in DEXTROSE 5% 100 ML IV SCH ×3 (00:31→16:05)
[2022-02-22] MEDS: FOLIC ACID 1 MG TAB PO SCH (08:16)
[2022-02-22] MEDS: MAGNESIUM CHLORIDE W/CALCIUM 64MG DELAYED REL TAB PO SCH (08:16)
[2022-02-22] MEDS: DOXYCYCLINE HYCLATE 100 MG CAP PO SCH (08:17)
[2022-02-22] MEDS: FEXOFENADINE HCL 180 MG TAB PO SCH (08:17)
[2022-02-22] MEDS: FAMOTIDINE 20 MG TAB PO SCH (08:17)
[2022-02-22] MEDS: LABETALOL HCL 300 MG TAB PO SCH ×2 (08:18→13:13)
[2022-02-22] MEDS: traMADol HCL 50 MG TABLET PO SCH (08:18)
[2022-02-22] MEDS: allopurinoL 300 MG TAB PO SCH (08:19)
[2022-02-22] MEDS: ASPIRIN 81 MG CHEW PO SCH (08:19)
[2022-02-22] MEDS: POLYETHYLENE (MIRALAX) 17 GM PACK PO SCH (08:19)
[2022-02-22] MEDS: busPIRone 5 MG TAB PO SCH ×2 (08:19→13:13)
[2022-02-22] MEDS: PANTOprazole 40 MG TAB PO SCH (08:20)
[2022-02-22] MEDS: MEMANTINE HCL 5 MG TAB PO SCH ×2 (08:20→16:05)
[2022-02-22] MEDS: MULTIVITAMIN TAB PO SCH (08:21)
[2022-02-22] MEDS: SODIUM BICARBONATE 650 MG TAB PO SCH (08:21)
[2022-02-22] MEDS: ZINC SULFATE 220 MG CAPSULE PO SCH (08:21)
[2022-02-22] MEDS: ASCORBIC ACID 500 MG TAB PO SCH ×3 (08:21→16:05)
[2022-02-22] MEDS: METAXALONE 800 MG TABLET PO SCH ×2 (08:22→13:12)
[2022-02-22] MEDS: FLUTICASONE PROPIONATE NA SPR 16 GM BTL SCH (08:23)
[2022-02-22] MEDS: ADVANCED PROBIOTIC 1250 MG CAPSULE PO SCH (08:23)
[2022-02-22] MEDS: DEXTROSE 5% IV SCH (08:29)
[2022-02-22] MEDS: DEXAMETHASONE IV SCH (08:29)
[2022-02-22 08:55] LABS: Albumin Globulin Ratio 1.2 (0.9-2); Albumin Level 3.5 gm/dl (3.4-5.0); BUN Creatinine Ratio 25.6 (10-20); Bilirubin,Total 0.7 mg/dl (0.2-1.0); Calcium 9.1 mg/dl (8.5-10.1); Creatinine Clr Calc Pharmacy 39.2 ml/min; Est GFR (African American) 41.8 ml/min; Est GFR (Non-African American) 36.1 ml/min; Globulin 2.9 gm/dl (2.5-4.0); Potassium 3.7 mmol/L (3.5-5.1); Total Protein 6.4 gm/dl (6.0-8.3)
[2022-02-22 09:07] LABS: Mean Corpuscular Hemoglobin 31.4 pg (25.0-34.0); Mean Corpuscular Hgb Conc 36.1 g/dL (32.0-36.0); RDW Coefficient of Variation 15.2 % (11.5-14.5); RDW Standard Deviation 48.2 fL (36.4-46.3); Red Blood Count 2.39 M/uL (3.93-5.22)
[2022-02-22 09:09] LABS: Hematocrit (blood only) 20.8 % (34.1-44.9); Hemoglobin 7.5 g/dl (12.0-16.0); Platelet Count 8 K/uL (130-400); White Blood Count 0.47 K/ul (4.8-10.8)
[2022-02-22] MEDS: BENZONATATE 100 MG CAPSULE PO PRN ×2 (09:10→17:05)
[2022-02-22] MEDS ORDERED: FILGRASTIM 300 MCG/ML VIAL SC ONE (09:30)
--- NOTE | 2022-02-22 09:55 | Hospitalist Progress Note ---
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 Found to have COVID infection. Received 3 units of packed RBC and 4 unit of platelets so far since admission WBC count is 470 today Hemoglobin7.5 Platelets 8000 Chest x-ray shows filtrate in right middle lung field Blood culture on 02/16no growth till date blood cx on 02/20- no growth till date. Urinalysis does not show signs of infection Creatinine of 1.60 which is near her baseline. DIC ruled out; lab work from 02/20. PT/INR, APTT within normal limits. Fibrin [id number]. Haptoglobin pending. Discussion was done with Dr. roberts from transplant services in [place] on 02/20/2022. He was recommended to stop cyclosporine and prednisone; start the patient on dexamethasone 50 mg IV daily. Also, recommended patient to be transferred to there for further care and possible bone marrow biopsy. Accepting doctor is Jessica Fisher Plan; Fever pattern is slightly improved compared to previous day. T-max of 37.6 in last 24 hours. Blood cultures negative so far. We will continue on empiric Zosyn and doxycycline for now given severe neutropenia. Cyclosporine and prednisone stopped as per recommendation from transplant services. Continue Dexamethasone as per transplant service recommendation As per for COVID infection; patient is unvaccinated. We will continue to monitor her respiratory status; oxygen as needed to keep saturation above 92%. No remdesivir given her CKD. Patient to be transferred to [place] for transplant services and potential bone marrow biopsy when bed is available. CODE: Full code DVT- SCDs Admission and Anticipated Discharge Date Admission Date: February 16, 2022 Subjective Patient seen and examined at bedside. She complains of generalized weakness; is getting short of breath while going to the bathroom and coming back. Reports fever overnight; improvement in overall fever curve. Telemetry shows paced rhythm Review of Systems Review of Systems: All systems reviewed & are unremarkable except as noted in Subjective Physical Exam Physical Exam: Constitutional: WD/WN, vitals as above, NAD, sitting up in bed, pleasant, conversing easily Respiratory: Bilateral vesicular breath sound Cardiovascular: RRR, no murmur, no edema Vessels: no JVD or carotid bruit Chest: normal inspection of chest Abdomen: normal bowel sounds, soft, nontender, no hepatosplenomegaly Musculoskeletal: no cyanosis or clubbing, extremities motor strength 5/5 Skin: no rashes, warm and dry normal turgor Neurologic: PERRL, EOMI, accommodation nl, no face palsy, no dysarthria CN's II- XI intact bilaterally and moves all extremities Psychiatric: A+Ox3, euthymic affect Lymphatic: no cervical or axillary lymphadenopathy : deferred Results & Data Results & Data ([facility]) Vital Signs (Past 12 Hours) Vital Signs Temp Pulse Pulse Resp BP Pulse Ox O2 Del Method 02/22/22 07:19 80 02/22/22 03:41 36.3 C L 60 18 111/73 94 Nasal Cannula 02/22/22 00:00 60 18 111/76 96 Room Air 02/21/22 22:59 60 02/21/22 22:00 Room Air O2 Flow Rate 02/22/22 07:19 02/22/22 03:41 4 02/22/22 00:00 02/21/22 22:59 02/21/22 22:00 Laboratory Results Laboratory Results WBC 0.47 K/ul (4.8-10.8) L* 02/22/22 07:43 RBC 2.39 M/uL (3.93-5.22) L 02/22/22 07:43 Hgb 7.5 g/dl (12.0-16.0) L 02/22/22 07:43 Hct 20.8 % (34.1-44.9) L* 02/22/22 07:43 MCV 87.0 fL (80.0-100.0) 02/22/22 07:43 MCH 31.4 pg (25.0-34.0) 02/22/22 07:43 MCHC 36.1 g/dL (32.0-36.0) H 02/22/22 07:43 RDW Std Deviation 48.2 fL (36.4-46.3) H 02/22/22 07:43 RDW Coeff of Delia 15.2 % (11.5-14.5) H 02/22/22 07:43 Plt Count 8 K/uL (130-400) L* 02/22/22 07:43 MPV 12.4 fL (9.4-12.3) H 02/18/22 05:26 Immature Gran % (Auto) Cancelled 02/22/22 07:43 Neut % (Auto) Cancelled 02/22/22 07:43 Lymph % (Auto) Cancelled 02/22/22 07:43 [place] % (Auto) Cancelled 02/22/22 07:43 Eos % (Auto) Cancelled 02/22/22 07:43 Baso % (Auto) Cancelled 02/22/22 07:43 Neut # (Auto) Cancelled 02/22/22 07:43 Lymph # (Auto) Cancelled 02/22/22 07:43 [place] # (Auto) Cancelled 02/22/22 07:43 Eos # (Auto) Cancelled 02/22/22 07:43 Baso # (Auto) Cancelled 02/22/22 07:43 Immature Gran # (Auto) Cancelled 02/22/22 07:43 Neutrophils % (Manual) Cancelled 02/22/22 07:43 Band Neutrophils % Cancelled 02/22/22 07:43 Lymphocytes % (Manual) Cancelled 02/22/22 07:43 Prolymphocyte % Cancelled 02/22/22 07:43 Reactive Lymphs % (Man) Cancelled 02/22/22 07:43 Monocytes % (Manual) Cancelled 02/22/22 07:43 Eosinophils % (Manual) Cancelled 02/22/22 07:43 Basophils % (Manual) Cancelled 02/22/22 07:43 Metamyelocytes % (Man) Cancelled 02/22/22 07:43 Myelocytes % (Man) Cancelled 02/22/22 07:43 Promyelocytes % (Man) Cancelled 02/22/22 07:43 Blast Cells % (Manual) Cancelled 02/22/22 07:43 Plasma Cell % (Manual) Cancelled 02/22/22 07:43 Other Cells % Cancelled 02/22/22 07:43 Nucleated RBC % Cancelled 02/22/22 07:43 Neutrophils # (Manual) Cancelled 02/22/22 07:43 Band Neutrophils # Cancelled 02/22/22 07:43 Total Absolute Neuts Cancelled 02/22/22 07:43 Lymphocytes # (Manual) Cancelled 02/22/22 07:43 Prolymphocyte # Cancelled 02/22/22 07:43 Reactive Lymphs # Cancelled 02/22/22 07:43 Total Abs Lymphocytes Cancelled 02/22/22 07:43 Monocytes # (Manual) Cancelled 02/22/22 07:43 Eosinophils # (Manual) Cancelled 02/22/22 07:43 Basophils # (Manual) Cancelled 02/22/22 07:43 Metamyelocytes # (Man) Cancelled 02/22/22 07:43 Myelocytes # (Manual) Cancelled 02/22/22 07:43 Promyelocytes # (Man) Cancelled 02/22/22 07:43 Blast Cells # (Man) Cancelled 02/22/22 07:43 Plasma Cell # (Manual) Cancelled 02/22/22 07:43 Other Cells # Cancelled 02/22/22 07:43 Nucleated RBCs # (Man) Cancelled 02/22/22 07:43 Hypersegmented Neuts Cancelled 02/22/22 07:43 Hyposegmented Neuts Cancelled 02/22/22 07:43 Hypogranular Neuts Cancelled 02/22/22 07:43 Large Granular Lymphs Cancelled 02/22/22 07:43 # Lrg Granular Lymphs Cancelled 02/22/22 07:43 Hairy Cells Cancelled 02/22/22 07:43 Smudge Cells Cancelled 02/22/22 07:43 Toxic Granulation Cancelled 02/22/22 07:43 Toxic Vacuolation Cancelled 02/22/22 07:43 Dohle Bodies Cancelled 02/22/22 07:43 Cat Rods Cancelled 02/22/22 07:43 Platelet Estimate Signific. Decreased (Normal) L 02/17/22 03:33 Hypogranular Platelets Cancelled 02/22/22 07:43 Clumped Platelets Cancelled 02/22/22 07:43 Giant Platelets Cancelled 02/22/22 07:43 Platelet Satelliting Cancelled 02/22/22 07:43 RBC Morphology Cancelled 02/22/22 07:43 Polychromasia Cancelled 02/22/22 07:43 Hypochromasia Cancelled 02/22/22 07:43 Poikilocytosis Cancelled 02/22/22 07:43 Basophilic Stippling Cancelled 02/22/22 07:43 Anisocytosis Cancelled 02/22/22 07:43 Microcytosis Cancelled 02/22/22 07:43 Macrocytosis Cancelled 02/22/22 07:43 Spherocytes Cancelled 02/22/22 07:43 Pappenheimer Bodies Cancelled 02/22/22 07:43 Sickle Cells Cancelled 02/22/22 07:43 Target Cells Cancelled 02/22/22 07:43 Tear Drop Cells Cancelled 02/22/22 07:43 Ovalocytes Cancelled 02/22/22 07:43 Stomatocytes Cancelled 02/22/22 07:43 Rios-Heartwell Bodies Cancelled 02/22/22 07:43 Echinocytes Cancelled 02/22/22 07:43 Acanthocytes (Spur) Cancelled 02/22/22 07:43 Rouleaux Cancelled 02/22/22 07:43 RBC Agglutinates Cancelled 02/22/22 07:43 Schistocytes Cancelled 02/22/22 07:43 Peripher Smr Path Cons 02/20/22 07:28 Sezary Cell Cancelled 02/22/22 07:43 PT 11.8 Seconds (9.0-12.0) 02/20/22 10:00 INR 1.1 (0.9-1.1) 02/20/22 10:00 APTT 38.7 Seconds (21.0-31.0) H 02/20/22 10:00 PTT Ratio 1.4 02/20/22 10:00 Fibrinogen 610 mg/dl (184-400) H 02/20/22 10:00 Sodium 136 mmol/L (136-145) 02/22/22 07:43 Potassium 3.7 mmol/L (3.5-5.1) 02/22/22 07:43 Chloride 104 mmol/L (98-107) 02/22/22 07:43 Carbon Dioxide 22 mmol/L (21-32) 02/22/22 07:43 Anion Gap 10 (3-11) 02/22/22 07:43 BUN 42 mg/dl (6-23) H 02/22/22 07:43 Creatinine 1.64 mg/dl (0.6-1.2) H 02/22/22 07:43 Est Cr Clr Drug Dosing 39.2 ml/min 02/22/22 07:43 Est GFR ( Amer) 41.8 ml/min 02/22/22 07:43 Est GFR (Non-Af Amer) 36.1 ml/min 02/22/22 07:43 BUN/Creatinine Ratio 25.6 (10-20) H 02/22/22 07:43 Glucose 144 mg/dl (70-99(Fasting)) H 02/22/22 07:43 Lactate 1.0 mmol/L (0.4-2.0) 02/16/22 12:58 Calcium 9.1 mg/dl (8.5-10.1) 02/22/22 07:43 Total Bilirubin 0.7 mg/dl (0.2-1.0) 02/22/22 07:43 AST 20 U/L (13-39) 02/22/22 07:43 ALT 21 U/L (7-52) 02/22/22 07:43 Alkaline Phosphatase 69 U/L (34-104) 02/22/22 07:43 Total Protein 6.4 gm/dl (6.0-8.3) 02/22/22 07:43 Albumin 3.5 gm/dl (3.4-5.0) 02/22/22 07:43 Globulin 2.9 gm/dl (2.5-4.0) 02/22/22 07:43 Albumin/Globulin Ratio 1.2 (0.9-2) 02/22/22 07:43 Urine Color Yellow 02/20/22 10:25 Urine Appearance Clear (Clear) 02/20/22 10:25 Urine pH 6.5 (4.5-7.5) 02/20/22 10:25 Ur Specific [place] 1.010 (1.000-1.030) 02/20/22 10:25 Urine Protein 1+ (Negative) H 02/20/22 10:25 Urine Glucose (UA) Negative (Negative) 02/20/22 10:25 Urine Ketones Negative (Negative) 02/20/22 10:25 Urine Blood Negative (Negative) 02/20/22 10:25 Urine Nitrite Negative (Negative) 02/20/22 10:25 Urine Bilirubin Negative (Negative) 02/20/22 10:25 Urine Urobilinogen Negative (Negative) 02/20/22 10:25 Ur Leukocyte Esterase Trace (Negative) H 02/20/22 10:25 Urine WBC (Auto) 5-10 /hpf (0-5) H 02/20/22 10:25 Urine RBC (Auto) 0-4 /hpf (0-4) 02/20/22 10:25 U Hyaline Cast (Auto) 0 /lpf (0-5) 02/20/22 10:25 U Epithel Cells (Auto) 5-10 /lpf (0-5) H 02/20/22 10:25 Urine Bacteria (Auto) Negative (Negative) 02/20/22 10:25 SARS-CoV-2 (PCR) POSITIVE (Negative) A* 02/16/22 12:00 Influenza Type A (PCR) Negative (Neg) 02/16/22 12:00 Influenza Type B (PCR) Negative (Neg) 02/16/22 12:00 RSV (RT-PCR) Negative (Neg) 02/16/22 12:00 Blood Parasites ID Cancelled 02/22/22 07:43 Blood Type A Positive 02/16/22 10:55 Antibody Screen NEGATIVE 02/16/22 10:55 Crossmatch See Detail 02/16/22 10:55 Impressions Chest X-Ray 02/21/22 10:22 XR chest 1V portable HISTORY: Cough. Follow up on pnuemonia COMPARISON: Chest 02/17/2022. FINDINGS: No significant change in the right greater than left patchy bilateral airspace opacities. No pneumothorax. No pleural effusions. Poststernotomy changes, a left-sided pacemaker, and an aortic valve prosthesis is again noted. The heart remains mildly enlarged. IMPRESSION: No change in the bilateral patchy airspace opacities, right greater than left. This may represent an atypical pneumonitis or asymmetric pulmonary edema ACT 112: Negative or not required by law. Electronically signed by: Hi Rios M.D. 02/21/2022 12:30 PM
--- NOTE | 2022-02-22 14:58 | Discharge Summary ---
Date of Service February 22, 2022 Admission HPI Per Admitting Provider This is a 51-year-old female with PMHx of marginal zone lymphoma, cold agglutinin anemia, cardiac pacemaker in situ, aortic valve replacement, hx of renal transplant, HTN, HLD, chronic pain syndrome, who presents with worsening weakness. She reports increased lethargy over the past 4 days progressively getting to the point where she thought she was becoming anemic. She admits to having a poor appetite, slower bowels, and some intermittent nausea over the past few days. She has felt this way before whenever her blood counts have dropped. She had outpatient labs routinely scheduled with her oncologist christina aceves, and upon being made aware that she was pancytopenic she presented to the ER. Patient last received treatment with ibrutinib chemotherapy for lymphoma on 01/30/2022 and has been on hold since then due to counts. She has been able to take all of her routinely scheduled medication today. Patient's mother is present with her at bedside and supports the history. The patient lives at home with her . She denies any recent sick contacts but notes that she always has some type of postnasal drip secondary to allergies which she uses [id number] nasal sprays and antihistamines. Pancytopenia seen on her labs, hemoglobin of 5.2, platelet of 10 noted. 1 unit PRBCs and platelet transfusion has been ordered in the ER. Admission Exam Per Admitting Provider Physical Exam: General: awake, alert, no apparent distress, + appears older than stated age, + pallor Head: Normocephalic, atraumatic ENT: PERRL, EOMI, no pharyngeal exudate, mucous membranes slightly dry Chest: Clear to auscultation, on room air, no adventitious breath sounds Cardiac: Regular rate and rhythm, no murmur, no JVD, normal peripheral pulses, good capillary refill Abdominal: NABS x 4 quadrants, soft, nondistended, nontender to palpation, no rebound or guarding Extremities: Normal inspection, no peripheral edema or erythema, calfs nontender to palpation Psych: Normal mood and affect Neuro: AAO x 3, strength intact bilaterally and rated 5/5, no motor deficits, speech is clear, no peripheral sensory deficits Principal Diagnosis (1) COVID-19 virus infection: (2) Pancytopenia: (3) Autoimmune hemolytic anemia: (4) Cold agglutinin disease: (5) Marginal zone lymphoma: (6) H/O aortic valve replacement: (7) DESIREE (acute kidney injury): (8) Febrile neutropenia: (9) Pneumonia: (10) Kidney transplant recipient Discharge Exam Constitutional: WD/WN, vitals as above, NAD, sitting up in bed, pleasant, conversing easily Respiratory: Bilateral vesicular breath sound Cardiovascular: RRR, no murmur, no edema Vessels: no JVD or carotid bruit Chest: normal inspection of chest Abdomen: normal bowel sounds, soft, nontender, no hepatosplenomegaly Musculoskeletal: no cyanosis or clubbing, extremities motor strength 5/5 Skin: no rashes, warm and dry normal turgor Neurologic: PERRL, EOMI, accommodation nl, no face palsy, no dysarthria CN's II- XI intact bilaterally and moves all extremities Psychiatric: A+Ox3, euthymic affect Lymphatic: no cervical or axillary lymphadenopathy : deferred Discharge Data Allergies Allergy/AdvReac Type Severity Reaction Status Date / Time hydralazine Allergy Severe Hives Verified 01/13/22 13:39 morphine Allergy Severe Hives Verified 01/13/22 13:39 nitroglycerin AdvReac Severe Migraine Verified 01/13/22 13:39 valacyclovir AdvReac Severe Vomiting Verified 01/13/22 13:39 Consultations 02/16/22 12:00 ED Decision to Admit Stat 02/16/22 13:29 Consult Nephrology Routine 02/20/22 17:59 Burn CD for patient Routine Hospital Course (1) COVID-19 virus infection: (2) Pancytopenia: (3) Autoimmune hemolytic anemia: (4) Cold agglutinin disease: (5) Marginal zone lymphoma: (6) H/O aortic valve replacement: (7) DESIREE (acute kidney injury): (8) Febrile neutropenia: (9) Pneumonia: (10) Kidney transplant recipient: Past medical history of autoimmune hemolytic anemia, marginal zone lymphoma (previously on ibrutinib, stopped in ), 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 Found to have COVID infection. Received 3 units of packed RBC and 4 unit of platelets so far since admission WBC count is 470 today Hemoglobin7.5 Platelets 8000 Chest x-ray shows filtrate in right middle lung field Blood culture on 02/16no growth till date blood cx on 02/20- no growth till date. Urinalysis does not show signs of infection Creatinine of 1.60 which is near her baseline. DIC ruled out; lab work from 02/20. PT/INR, APTT within normal limits. [id number]. Haptoglobin pending. Discussion was done with Dr. roberts from transplant services in [place] on 02/20/2022. He was recommended to stop cyclosporine and prednisone; start the patient on dexamethasone 50 mg IV daily. Also, recommended patient to be transferred to there for further care and possible bone marrow biopsy. Accepting doctor is Jessica Fisher MD Plan; Fever pattern is slightly improved compared to previous day. T-max of 37.6 in last 24 hours. Blood cultures negative so far. We will continue on empiric Zosyn and doxycycline for now given severe neutropenia. Cyclosporine and prednisone stopped as per recommendation from transplant services. Continue Dexamethasone as per transplant service recommendation As per for COVID infection; patient is unvaccinated. We will continue to monitor her respiratory status; oxygen as needed to keep saturation above 92%. No remdesivir given her CKD. Patient transferred to [place] for transplant services and possible bone marrow biopsy. Total Time Total Time Spent Total Time Spent (In Minutes): 45 Total Time Includes: Examination of the Patient, Discharge Planning, Medication Reconciliation, Communication With Other Providers and Other Discharge Plan Discharge Items Patient Disposition: Transfer Acute Care Hospital Reason For Visit: ANEMIA- SEVERE WEAKNESS AND SOB Discharge Diagnosis: (1) COVID-19 virus infection: (2) Pancytopenia: (3) Autoimmune hemolytic anemia: (4) Cold agglutinin disease: (5) Marginal zone lymphoma: (6) H/O aortic valve replacement: (7) DESIREE (acute kidney injury): (8) Febrile neutropenia: (9) Pneumonia: (10) Kidney transplant recipient Activity: Resume your previous activity Non-emergency contact: Primary Care Provider Call non-emergency contact if: you have any medication questions and your symptoms worsen Follow-up/Referrals: Stuart Ravi MD [Primary Care Provider] - Diet: Regular Addtl Attending Provider Instructions: Follow up with PCP after discharge from [place]. Addtl Digital Measurement Advisor Provider Instructions: Date of Service: February 21, 2022 Current Inpatient Medications Acetaminophen (Acetaminophen 325 Mg Tab) 650 mg PO Q4H PRN PRN Reason: Pain or Fever Stop: 03/18/22 16:30 Last Admin: 02/21/22 14:15 Dose: 650 mg Allopurinol (Allopurinol 300 Mg Tab) 300 mg PO QAM [facility] Stop: 03/19/22 08:59 Last Admin: 02/21/22 09:18 Dose: 300 mg Amlodipine Besylate (Amlodipine Besylate 5 Mg Tab) 2.5 mg PO QPM [facility] Stop: 03/18/22 20:59 Last Admin: 02/20/22 21:28 Dose: 2.5 mg Ascorbic Acid (Ascorbic Acid 500 Mg Tab) 1,000 mg PO QID [facility] Stop: 03/18/22 16:59 Last Admin: 02/21/22 12:24 Dose: 1,000 mg Aspirin (Aspirin 81 Mg Chew) 81 mg PO QAM [facility] Stop: 03/19/22 08:59 Last Admin: 02/21/22 09:41 Dose: 81 mg Baclofen (Baclofen 10 Mg Tab) 10 mg PO TID PRN PRN Reason: Nausea Stop: 03/18/22 20:59 Benzonatate (Benzonatate 100 Mg Capsule) 100 mg PO TID PRN PRN Reason: Cough Stop: 03/22/22 20:50 Buspirone HCl (Buspirone 5 Mg Tab) 5 mg PO TID [facility] Stop: 03/20/22 08:59 Last Admin: 02/21/22 12:24 Dose: 5 mg Doxycycline Hyclate (Doxycycline Hyclate 100 Mg Cap) 100 mg PO BID [facility] Stop: 02/27/22 08:59 Last Admin: 02/21/22 09:15 Dose: 100 mg Famotidine (Famotidine 20 Mg Tab) 20 mg PO [facility]; Protocol Stop: 03/18/22 20:59 Last Admin: 02/21/22 09:14 Dose: 20 mg Fexofenadine HCl (Fexofenadine Hcl 180 Mg Tab) 180 mg PO DAILY [facility] Stop: 03/19/22 08:59 Last Admin: 02/21/22 09:17 Dose: 180 mg Fluticasone Propionate (Fluticasone Propionate Na Spr 16 Gm Btl) 2 sprays NA DAILY [facility] Stop: 03/19/22 08:59 Last Admin: 02/21/22 09:19 Dose: 2 sprays Folic Acid (Folic Acid 1 Mg Tab) 1 mg PO QAM [facility] Stop: 03/19/22 08:59 Last Admin: 02/21/22 09:17 Dose: 1 mg Guaifenesin/Codeine Phosphate (Guaifenesin/Codeine 200mg/20mg 10ml Udc) 10 ml PO Q6H PRN PRN Reason: Cough Stop: 03/18/22 21:50 Last Admin: 02/21/22 09:17 Dose: 10 ml Dexamethasone 50 mg/ Dextrose 62.5 mls @ 125 mls/hr IV QAM [facility] Stop: 03/23/22 08:59 Last Infusion: 02/21/22 10:36 Dose: Infused Piperacillin Sod/Tazobactam (Sod 3.375 gm/ Dextrose) 115 mls @ 28.75 mls/hr IV Q8H [facility]; Protocol Stop: 02/28/22 15:59 Labetalol HCl (Labetalol Hcl 300 Mg Tab) 300 mg PO Q8@0700,1300,2000 [facility] Stop: 03/18/22 19:59 Last Admin: 02/21/22 12:23 Dose: 300 mg Lactobacillus Acidophilus (Advanced Probiotic 1250 Mg Capsule) 2 cap PO DAILY [facility] Stop: 03/19/22 08:59 Last Admin: 02/21/22 09:18 Dose: 2 cap Magnesium Chloride (Magnesium Chloride W/Calcium 64mg Delayed Rel Tab) 64 mg PO QAM [facility] Stop: 03/19/22 08:59 Last Admin: 02/21/22 09:16 Dose: 64 mg Memantine (Memantine Hcl 5 Mg Tab) 5 mg PO BIDM [facility] Stop: 03/18/22 16:59 Last Admin: 02/21/22 09:16 Dose: 5 mg Metaxalone (Metaxalone 800 Mg Tablet) 800 mg PO TID [facility] Stop: 03/19/22 08:59 Last Admin: 02/21/22 12:25 Dose: 800 mg Metoclopramide HCl (Metoclopramide Hcl 5 Mg Tablet) 5 mg PO DAILY PRN PRN Reason: Nausea And Vomiting Stop: 03/18/22 16:30 Last Admin: 02/20/22 15:26 Dose: 5 mg Mirtazapine (Mirtazapine Soltab 15 Mg) 45 mg PO HS [facility] Stop: 03/18/22 20:59 Last Admin: 02/20/22 21:26 Dose: 45 mg Miscellaneous (Ramelteon~ Order Awaiting Action) 1 each N/A QS [facility] Stop: 03/19/22 00:00 Last Admin: 02/20/22 23:49 Dose: Not Given Montelukast Sodium (Montelukast Sodium 10 Mg Tablet) 10 mg PO HS [facility] Stop: 03/19/22 20:59 Last Admin: 02/20/22 21:27 Dose: 10 mg Multivitamins (Multivitamin Tab) 1 tab PO QAM [facility] Stop: 03/19/22 08:59 Last Admin: 02/21/22 09:16 Dose: 1 tab Ondansetron HCl (Ondansetron 4 Mg Od Tab) 4 mg PO Q12 PRN PRN Reason: Nausea Stop: 03/18/22 17:15 Last Admin: 02/19/22 08:12 Dose: 4 mg Oxycodone HCl (Oxycodone Hcl Ir 5 Mg Tab (Immediate Release)) 5 mg PO Q6H PRN PRN Reason: Pain, Severe Stop: 03/02/22 16:30 Last Admin: 02/21/22 09:17 Dose: 5 mg Pantoprazole Sodium (Pantoprazole 40 Mg Tab) 40 mg PO AMHS [facility] Stop: 03/18/22 20:59 Last Admin: 02/21/22 09:14 Dose: 40 mg Polyethylene Glycol (Polyethylene (Miralax) 17 Gm Pack) 17 gm PO DAILY [facility] Stop: 03/19/22 08:59 Last Admin: 02/21/22 09:41 Dose: 17 gm Rosuvastatin Calcium (Rosuvastatin Calcium 5 Mg Tab) 5 mg PO [facility] Stop: 03/18/22 20:59 Last Admin: 02/20/22 21:27 Dose: 5 mg Sodium Bicarbonate (Sodium Bicarbonate 650 Mg Tab) 1,300 mg PO AMHS [facility] Stop: 03/18/22 20:59 Last Admin: 02/21/22 09:15 Dose: 1,300 mg Sodium Chloride (Sodium Chloride 0.65% Na Soln 45 Ml ([place])) 1 sprays NA NOW PRN PRN Reason: Congestion Stop: 03/19/22 21:22 Last Admin: 02/17/22 22:26 Dose: 1 sprays Tramadol HCl (Tramadol Hcl 50 Mg Tablet) 100 mg PO QAM [facility] Stop: 03/19/22 08:59 Last Admin: 02/21/22 09:15 Dose: 100 mg Tramadol HCl (Tramadol Hcl 50 Mg Tablet) 200 mg PO QPM [facility] Stop: 03/18/22 20:59 Last Admin: 02/20/22 21:38 Dose: 200 mg Zinc Sulfate (Zinc Sulfate 220 Mg Capsule) 220 mg PO DAILY [facility] Stop: 03/19/22 08:59 Last Admin: 02/21/22 09:18 Dose: 220 mg Zolpidem Tartrate (Zolpidem Tartrate 5 Mg Tab) 5 mg PO HS PRN PRN Reason: Sleep Stop: 03/20/22 00:31 Last Admin: 02/20/22 23:53 Dose: 5 mg Pending Studies at Discharge: No Stand-Alone Forms: [facility] Skilled Items Patient informed of condition?: Yes DNR: No Discharge Level of Care: Other Communicable Disease: Yes Discharge Prognosis: Stable Lines: Peripheral IV Urinary Catheter: No Medications and DC Order Prescriptions: Continued ibrutinib 280 mg tablet 280 mg PO QAM Rx Instructions: take at same time(s) each day; swallow whole with water; do not crush, chew, break, dissolve, cut, or open rosuvastatin [Crestor] 5 mg tablet 5 mg PO HS cimetidine 400 mg tablet 400 mg PO AMHS labetalol 300 mg tablet 300 mg PO Q8H Rx Instructions: morning,noon and before bedtime sodium bicarbonate 650 mg tablet 1,300 mg PO AMHS Rx Instructions: take before bedtime 2 tablet dose ramelteon 8 mg tablet 8 mg PO HS multivitamin Tablet 1 tab PO QAM prednisone 2.5 mg Tablet 2.5 mg PO QAM ascorbic acid (vitamin C) 500 mg Capsule 1,000 mg PO QID folic acid 1 mg Tablet 1 mg PO QAM buspirone 5 mg tablet 5 mg PO TID PRN (Reason: Anxiety) pantoprazole [Protonix] 40 mg tablet,delayed release (DR/EC) 40 mg PO AMHS Rx Instructions: take before bedtime montelukast 10 mg tablet 10 mg PO QAM tramadol 100 mg Tablet Extended Release 24 Hr See Rx Instructions .ROUTE .COMPLEX Rx Instructions: 100 mg orally every morning and 200mg at bedtime polyethylene glycol 3350 [Miralax] 17 gram Powder In Packet 17 g PO DAILY mirtazapine 45 mg tablet 45 mg PO HS amlodipine 2.5 mg tablet 2.5 mg PO QPM zolpidem 10 mg tablet 10 mg PO HS allopurinol 300 mg tablet 300 mg PO QAM cyclosporine modified 50 mg capsule 50 mg PO AMPM ondansetron HCl 4 mg tablet 4 mg PO Q12 PRN (Reason: Nausea) metoclopramide HCl 5 mg tablet 5 mg PO DAILY PRN (Reason: Nausea And Vomiting) aspirin [Aspirin Childrens] 81 mg Tablet,Chewable 81 mg PO QAM metaxalone 800 mg tablet 800 mg PO TID PRN (Reason: Muscle Spasm) memantine 5 mg tablet 5 mg PO BIDM Rx Instructions: take with morning and evening meals magnesium chloride 64 mg Tablet,Delayed Release (Dr/Ec) 64 mg PO QAM Aimovig Autoinjector 70 mg/mL auto-injector 70 mg subcut MONTHLY Rx Instructions: 70 mg subcut monthly amoxicillin 500 mg capsule 2,000 mg PO ONCE PRN (Reason: 1 hr prior to dental procedure) oxycodone 5 mg Tablet 5 mg PO Q6H PRN (Reason: Pain, Severe) fexofenadine 180 mg Tablet 180 mg PO DAILY triamcinolone acetonide 55 mcg Aerosol,[place] 2 spray INTRANASAL DAILY Rx Instructions: administer into each nostril zinc gluconate 50 mg Tablet 100 mg PO DAILY Probiotic Acidophilus Biobeads 12.9 mg (2 billion cell) Tablet,Delayed Release (Dr/Ec) 2 tab PO DAILY Magic Swizzle 30 ml PO BID Rx Instructions: swish and spit ketotifen fumarate 0.025 % (0.035 %) Drops 1 drp OPHTHALMIC (EYE) BID PRN (Reason: as direceted) Rx Instructions: administer at least 8 hours apart Discharge Orders: Discharge Order (Routine); Ordered 02/22/22 Ordered By: Cristian Brito Admission Data Admit Date/Time: 02/16/22 12:32 Attending Provider: Cristian Brito Admit Provider: Cara Hall Primary Care Provider: Stuart Ravi Other Providers: Cara Hall ; Nagi David
[2022-02-22 18:21] LABS: Parvovirus IgG 8.5 (<0.9); Parvovirus IgM 0.1 (<0.9)
[2022-03-02 13:26] LABS: ALC (manual) 0.85 K/uL (1.2-3.4); ANC (manual) 0.39 K/uL (1.4-6.5); Lymphocytes # (manual) 0.85 K/uL (1.2-3.4); Monocytes # (manual) 0.03 K/uL (0.24-0.82); Neutrophils # (manual) 0.39 K/uL (1.4-6.5)
== END 2022-02-22 18:01 | disposition short-term general hospital (02) | DRG 808 ==
LOC: ED 09:53 → SUATTDRO 12:32 → EDINP 12:32 → 4W 21:21 → 2N 02-18 19:51

== ENCOUNTER 2022-03-14 13:50 | Inpatient (IN) ==
[2022-03-14] MEDS ORDERED: SODIUM CHLORIDE 0.9% 250 ML IV PRN (14:35)
--- NOTE | 2022-03-14 14:39 | Electrocardiogram Report ---
Test Reason : Blood Pressure : / mmHG Vent. Rate : 083 BPM Atrial Rate : 083 BPM P-R Int : 194 ms QRS Dur : 168 ms QT Int : 458 ms P-R-T Axes : 052 062 116 degrees QTc Int : 538 ms Atrial-sensed ventricular-paced rhythm Abnormal ECG When compared with ECG of 17-FEB-2022 05:27, Vent. rate has increased BY 23 BPM Confirmed by Genaro Ordoñez ([id number]) on 03/14/2022 2:39:29 PM Referred By: Confirmed By:Genaro Ordoñez
--- NOTE | 2022-03-14 14:43 | Emergency Department Note ---
History of Present Illness General Chief complaint: Testing Request Stated complaint: TESTING REQUEST Time Seen by Provider: 03/14/22 14:21 Source: patient and family (Who is at the bedside) Mode of arrival: ambulatory Limitations: no limitations History of Present Illness This patient has very complex medical history including pancytopenia lymphoma kidney transplant cardiac disease and recent COVID, comes in after being pancytopenic again. She was admitted last month for this and was ultimately sent to [facility] where she had a work-up and she says they could not figure out why she is pancytopenic she saw Dr. Charles today who ordered outpatient labs and her hemoglobin came back at 5.4 and platelets 1000. She was sent up to the ER. She has been feeling orthostatic she gets short of breath mostly with exertion incision feels okay at rest. No definite fever. She has had no fall or trauma she is a headache although tends to get headaches. No blood or melena stool. Decreased p.o. intake no emesis some nausea no abdominal pain. No dysuria or hematuria. She did get some Neupogen shots at [facility] and has bruising from these as well as bruising and petechiae from low platelets Home Medications Medication Instructions Recorded Confirmed Type folic acid 1 mg tablet 1 mg PO QAM 03/13/18 03/14/22 History multivitamin 1 tab PO QAM 03/13/18 03/14/22 History montelukast 10 mg tablet 10 mg PO QAM 10/24/18 03/14/22 History buspirone 5 mg tablet 5 mg PO Q8 01/08/19 03/14/22 History cimetidine 400 mg tablet 400 mg PO [facility] 01/08/19 03/14/22 History pantoprazole 40 mg tablet,delayed 40 mg PO [facility] 01/08/19 03/14/22 History release (Protonix) rosuvastatin 5 mg tablet (Crestor) 5 mg PO HS 01/08/19 03/14/22 History tramadol 100 mg tablet,extended See Rx Instructions .Route .COMPLEX 03/09/19 03/14/22 History release 24 hr mirtazapine 45 mg tablet 45 mg PO HS 01/21/20 03/14/22 History polyethylene glycol 3350 17 gram 17 g PO DAILY 01/21/20 03/14/22 History oral powder packet (Miralax) amlodipine 2.5 mg tablet 2.5 mg PO QPM 06/15/20 03/14/22 History ibrutinib 280 mg tablet 280 mg PO .ON HOLD 06/15/20 03/14/22 History labetalol 300 mg tablet 300 mg PO Q8H 09/21/20 03/14/22 History sodium bicarbonate 650 mg tablet 1,300 mg PO [facility] 09/21/20 03/14/22 History ramelteon 8 mg tablet 8 mg PO HS 01/13/22 03/14/22 History L.acidoph-L.rhamn-B.bifidum-B.long 2 tab PO DAILY 01/27/22 03/14/22 History 12.9 mg (2 billion cell) tablet, DR (Probiotic Acidophilus Biobvernds) allopurinol 300 mg tablet 300 mg PO .ON HOLD 01/27/22 03/14/22 History amoxicillin 500 mg capsule 2,000 mg PO ONCE PRN 1 hr prior to 01/27/22 03/14/22 History dental procedure aspirin 81 mg chewable tablet 81 mg PO QAM 01/27/22 03/14/22 History (Aspirin Childrens) cyclosporine modified 50 mg capsule 50 mg PO .ON HOLD 01/27/22 03/14/22 History erenumab-aooe 70 mg/mL 70 mg subcut MONTHLY 01/27/22 03/14/22 History subcutaneous auto-injector (Aimovig Autoinjector) fexofenadine 180 mg tablet 180 mg PO DAILY 01/27/22 03/14/22 History ketotifen fumarate 0.025 % (0.035 1 drp ophthalmic (eye) BID PRN as 01/27/22 03/14/22 History %) eye drops direceted magnesium chloride 64 mg 64 mg PO QAM 01/27/22 03/14/22 History (magnesium chloride) tablet,delayed release memantine 5 mg tablet 5 mg PO BIDM 01/27/22 03/14/22 History metaxalone 800 mg tablet 800 mg PO Q8 01/27/22 03/14/22 History metoclopramide HCl 5 mg tablet 5 mg PO .ON HOLD PRN Nausea And 01/27/22 03/14/22 History Vomiting ondansetron HCl 4 mg tablet 4 mg PO .ON HOLD PRN Nausea 01/27/22 03/14/22 History oxycodone 5 mg tablet 5 mg PO Q6H 01/27/22 03/14/22 History triamcinolone acetonide 55 mcg 2 spray intranasal DAILY 01/27/22 03/14/22 History nasal spray aerosol zinc gluconate 50 mg tablet 100 mg PO DAILY 01/27/22 03/14/22 History zolpidem 10 mg tablet 10 mg PO HS 02/16/22 03/14/22 History ascorbic acid (vitamin C) 1,000 mg 1 g PO Q6 03/10/22 03/14/22 History tablet (Vitamin C) prednisone 5 mg tablet 5 mg PO QAM 03/14/22 03/14/22 History Allergies Allergy/AdvReac Type Severity Reaction Status Date / Time hydralazine Allergy Severe Hives Verified 03/10/22 14:14 morphine Allergy Severe Hives Verified 03/10/22 14:14 nitroglycerin AdvReac Severe Migraine Verified 03/10/22 14:14 valacyclovir AdvReac Severe Vomiting Verified 03/10/22 14:14 Past Med/Surg History Medical History (Updated 03/14/22 @ 22:32 by Hollis Alonso MD) Acute hyponatremia Acute pancreatitis Acute UTI Anxiety Aortic regurgitation "s/p bioprosthetic AVR" Autoimmune hemolytic anemia B-cell lymphoma diagnosed 03/2019--chemo Carcinoma in situ removed in office Cervicalgia Chronic back pain Chronic pancreatitis CKD (chronic kidney disease), stage III Dehydration Depression Dyslipidemia ESBL (extended spectrum beta-lactamase) producing bacteria infection Essential hypertension Gastroparesis GERD (gastroesophageal reflux disease) History of DVT (deep vein thrombosis) History of herpes zoster 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" History of pericarditis History of renal calculi Hypertension Hypertensive heart disease Leukopenia Macular degeneration Marginal zone lymphoma Migraine headache Nausea and vomiting after administration of anesthetic agent Neurofibromatosis Pancreatic cyst Pancytopenia Recurrent UTI Renal transplant recipient Ulcerative colitis UTI (urinary tract infection) Surgical History (Updated 03/14/22 @ 16:19 by Cecille Miller PA-C) Cardiac pacemaker [place] [facility] [place] H/O aortic valve replacement H/O prior ablation treatment percutaneous peripheral nerve / C5-C6 ablation History of biopsy renal History of cardiac cath 2016 prior to AVR--no stent History of chest tube placement History of colonoscopy History of cystoscopy History of esophagogastroduodenoscopy (EGD) History of lithotripsy History of renal transplant History of tonsillectomy and adenoidectomy History of tooth extraction History of wisdom tooth extraction Status post aortic valve replacement with bioprosthetic valve [place] [facility] [place]/23/[place]--follows with Dr. Rizo Status post -donor kidney transplantation 12/1984--removed 01/1990 Status post living-donor kidney transplantation in 06/1990 Family History Grandmother (Maternal) Coronary heart disease Family history of diabetes mellitus Grandfather (Paternal) Coronary heart disease Mother Kidney donor Other No family history of adverse response to anesthesia No family history of kidney disease Social History Smoking Status: Never smoker Tobacco Type: Cigarettes Second Hand Exposure: No; Hx Alcohol Use: No Hx Substance Use: No Preferred Language: Serbian Communication Ability: Effective Surgical Attendant Required: No Beliefs That Will Affect Care: Jehovah'S Witness Jehovah'S Witness Beliefs: pt states she is latter-day marital status: Current Living Situation: Spouse Current Living Situation Comment: Feels Safe at Home: Yes Safety Concerns: Feels Safe At This Time Assistive Devices: Cane and Glasses Review of Systems A total of 10 systems reviewed and were otherwise negative Physical Exam Vital Signs Vital Signs - 24 hr 03/14/22 14:02 03/14/22 15:23 Temperature 36.5 C 37.1 C Temperature Source Temporal Artery Scan Oral Pulse Rate 85 78 Pulse Rhythm Regular Pulse Strength Normal Respiratory Rate 19 18 Blood Pressure 85/62 L 97/65 L Blood Pressure Mean 69 75 Pulse Oximetry 96 90 Oxygen Delivery Method Room Air Sepsis Recent Fever Within 48 Hours No Sepsis New/Unexplained Change in Mental Status N/A Sepsis Action Taken by Nursing No Action Required General: Well developed well nourished chronically ill-appearing older female who appears pale in no acute distress, breathing comfortably on room air. Normal speech HEENT: Normal cephalic atraumatic. Pupils are equal round and reactive to light. Extraocular movements are intact. Oropharynx is pink with moist mucous membranes. No swelling of the mouth lips or tongue. Neck: Supple with a midline trachea. No meningeal signs or stiffness, no JVD or bruits. No Stridor. Chest: Clear to auscultation bilaterally. No wheezes or rhonchi. No increased work of breathing. Heart: Regular rate and rhythm .she does have a large systolic heart murmur from a aortic valve replacement. Abdomen: Soft nontender, nondistended without rebound guarding or rigidity. Extremities: No cyanosis clubbing or edema. No calf tenderness or assymetry Spine/Back. Non tender to palpation. No CVA tenderness Skin: Good turgor without rashes. She has large bruises on her abdomen from Neupogen and petechiae as well Neurologic exam: Cranial nerves two through 12 are intact. Motor and sensation are intact and symmetrical throughout. Course Administered Medications Buspirone HCl (Buspirone 5 Mg Tab) 5 mg PO TID [facility] Stop: 04/13/22 20:59 Last Admin: 03/14/22 21:46 Dose: 5 mg Documented By: KORINA Cyclosporine (Cyclosporine 25 Mg Cap) 50 mg PO BID [place] Stop: 04/13/22 20:59 Last Admin: 03/14/22 21:56 Dose: 50 mg Documented By: KORINA Mem[facility] ([facility] Hcl 5 Mg [facility] [place] Stop: 04/13/22 18:10 Last Admin: 03/14/22 21:00 Dose: 5 mg Documented By: KORINA Metaxalone (Metaxalone 800 Mg Tablet) 800 mg PO TID [place] Stop: 04/13/22 20:59 Last Admin: 03/14/22 21:50 Dose: 800 mg Documented By: KORINA Mirtazapine (Mirtazapine Soltab 15 Mg) 45 mg PO HS [facility] Stop: 04/13/22 20:59 Last Admin: 03/14/22 21:50 Dose: 45 mg Documented By: KORINA Pantoprazole Sodium (Pantoprazole 40 Mg Tab) 40 mg PO BID [place] Stop: 04/13/22 20:59 Last Admin: 03/14/22 21:46 Dose: 40 mg Documented By: KORINA Rosuvastatin Calcium (Rosuvastatin Calcium 5 Mg Tab) 5 mg PO [facility] Stop: 04/13/22 20:59 Last Admin: 03/14/22 21:47 Dose: 5 mg Documented By: KORINA Sodium Bicarbonate (Sodium Bicarbonate 650 Mg Tab) 1,300 mg PO BID [place] Stop: 04/13/22 20:59 Last Admin: 03/14/22 21:47 Dose: 1,300 mg Documented By: KORINA Tramadol HCl (Tramadol Hcl 50 Mg Tablet) 200 mg PO HS [place] Stop: 04/13/22 20:59 Last Admin: 03/14/22 21:49 Dose: 200 mg Documented By: KORINA Zolpidem Tartrate (Zolpidem Tartrate 10 Mg Tab) 10 mg PO HSZ [place] Stop: 04/13/22 21:59 Last Admin: 03/14/22 21:46 Dose: 10 mg Documented By: KORINA Discontinued Medications Acetaminophen (Acetaminophen 1000 Mg/100 Ml Iv) Confirm Administered Dose 1,000 mg IV .STK-MED ONE Stop: 03/14/22 20:26 Last Admin: 03/14/22 20:34 Dose: Not Given Documented By: KORINA Diphenhydramine HCl (Diphenhydramine 50 Mg/Ml Vial) 25 mg IV NOW STA Stop: 03/14/22 20:23 Last Admin: 03/14/22 20:33 Dose: 25 mg Documented By: KORINA Diphenhydramine HCl (Diphenhydramine 50 Mg/Ml Vial) Confirm Administered Dose 50 mg .ROUTE .STK-MED ONE Stop: 03/14/22 20:26 Last Admin: 03/14/22 20:33 Dose: Not Given Documented By: KORINA Acetaminophen (Ofirmev) 1,000 mg in 100 mls @ 400 mls/hr IV NOW STA Stop: 03/14/22 20:36 Last Infusion: 03/14/22 20:59 Dose: 0 mls/hr Documented By: Admin: 03/14/22 20:33 Dose: 400 mls/hr Documented By: KORINA Critical Care Time Critical Care Time: Yes Total Critical Care Time: 35 Due to the patient's pancytopenia and need for blood and platelet transfusion and for reassessment and consultations, I have personally spent greater than 35 minutes of critical care time in the direct management of this patient. This includes bedside care, interpretation of diagnostic studies, and testing, discussion with consultants, patient, and family members, and other required patient management activities. This 35 minutes is in excess of all separately billable procedures. Medical Decision Making Differential Diagnosis Pancytopenia, anemia, thrombocytopenia, infection, renal failure, electrolyte or metabolic abnormality, cardiac disease,covid Medical Records Attestation: I reviewed the patient's medical records. Home Medications Current Medication List: was personally reviewed by me Laboratory Data Attestation: I reviewed the patient's lab results. Result diagrams: 03/14/22 14:15 03/14/22 14:15 Lab Results 03/14/22 03/14/22 03/14/22 Range/Units 14:15 14:15 14:15 WBC 0.48 L* (4.8-10.8) K/ul RBC 1.94 L (3.93-5.22) M/uL Hgb 5.6 L* (12.0-16.0) g/dl Hct 16.6 L* (34.1-44.9) % MCV 85.6 (80.0-100.0) fL MCH 28.9 (25.0-34.0) pg MCHC 33.7 (32.0-36.0) g/dL RDW Std Deviation 42.1 (36.4-46.3) fL RDW Coeff of Delia 13.6 (11.5-14.5) % Plt Count 1 L* (130-400) K/uL Immature Gran % (Auto) Cancelled Neut % (Auto) Cancelled Lymph % (Auto) Cancelled Gaines % (Auto) Cancelled Eos % (Auto) Cancelled Baso % (Auto) Cancelled Neut # (Auto) Cancelled Lymph # (Auto) Cancelled Gaines # (Auto) Cancelled Eos # (Auto) Cancelled Baso # (Auto) Cancelled Immature Gran # (Auto) Cancelled Neutrophils % (Manual) Cancelled Band Neutrophils % Cancelled Lymphocytes % (Manual) Cancelled Prolymphocyte % Cancelled Reactive Lymphs % (Man) Cancelled Monocytes % (Manual) Cancelled Eosinophils % (Manual) Cancelled Basophils % (Manual) Cancelled Metamyelocytes % (Man) Cancelled Myelocytes % (Man) Cancelled Promyelocytes % (Man) Cancelled Blast Cells % (Manual) Cancelled Plasma Cell % (Manual) Cancelled Other Cells % Cancelled Nucleated RBC % Cancelled Neutrophils # (Manual) Cancelled Band Neutrophils # Cancelled Total Absolute Neuts Cancelled Lymphocytes # (Manual) Cancelled Prolymphocyte # Cancelled Reactive Lymphs # Cancelled Total Abs Lymphocytes Cancelled Monocytes # (Manual) Cancelled Eosinophils # (Manual) Cancelled Basophils # (Manual) Cancelled Metamyelocytes # (Man) Cancelled Myelocytes # (Manual) Cancelled Promyelocytes # (Man) Cancelled Blast Cells # (Man) Cancelled Plasma Cell # (Manual) Cancelled Other Cells # Cancelled Nucleated RBCs # (Man) Cancelled Hypersegmented Neuts Cancelled Hyposegmented Neuts Cancelled Hypogranular Neuts Cancelled Large Granular Lymphs Cancelled # Lrg Granular Lymphs Cancelled Hairy Cells Cancelled Smudge Cells Cancelled Toxic Granulation Cancelled Toxic Vacuolation Cancelled Dohle Bodies Cancelled Cat Rods Cancelled Hypogranular Platelets Cancelled Clumped Platelets Cancelled Giant Platelets Cancelled Platelet Satelliting Cancelled RBC Morphology Cancelled Polychromasia Cancelled Hypochromasia Cancelled Poikilocytosis Cancelled Basophilic Stippling Cancelled Anisocytosis Cancelled Microcytosis Cancelled Macrocytosis Cancelled Spherocytes Cancelled Pappenheimer Bodies Cancelled Sickle Cells Cancelled Target Cells Cancelled Tear Drop Cells Cancelled Ovalocytes Cancelled Stomatocytes Cancelled Rios-Sallis[place] Bodies Cancelled Echinocytes Cancelled Acanthocytes (Spur) Cancelled Rouleaux Cancelled RBC Agglutinates Cancelled Schistocytes Cancelled Sezary Cell Cancelled PT 14.6 H (9.0-12.0) Seconds INR 1.4 H (0.9-1.1) APTT 36.9 H (21.0-31.0) Seconds PTT Ratio 1.3 Sodium 132 L (136-145) mmol/L Potassium 4.0 (3.5-5.1) mmol/L Chloride 94 L (98-107) mmol/L Carbon Dioxide 26 (21-32) mmol/L Anion Gap 12 H (3-11) BUN 40 H (6-23) mg/dl Creatinine 2.27 H (0.6-1.2) mg/dl Est Cr Clr Drug Dosing Not Reportable Est GFR ( Amer) 28.2 ml/min Est GFR (Non-Af Amer) 24.4 ml/min BUN/Creatinine Ratio 17.6 (10-20) Glucose 113 H (70-99(Fasting)) mg/dl Calcium 8.8 (8.5-10.1) mg/dl Total Bilirubin 0.7 (0.2-1.0) mg/dl AST 29 (13-39) U/L ALT 45 (7-52) U/L Alkaline Phosphatase 66 (34-104) U/L Total Protein 6.3 (6.0-8.3) gm/dl Albumin 2.9 L (3.4-5.0) gm/dl Globulin 3.4 (2.5-4.0) gm/dl Albumin/Globulin Ratio 0.9 (0.9-2) Blood Parasites ID Cancelled Blood Type Antibody Screen Crossmatch 03/14/22 Range/Units 14:26 WBC (4.8-10.8) K/ul RBC (3.93-5.22) M/uL Hgb (12.0-16.0) g/dl Hct (34.1-44.9) % MCV (80.0-100.0) fL MCH (25.0-34.0) pg MCHC (32.0-36.0) g/dL RDW Std Deviation (36.4-46.3) fL RDW Coeff of Delia (11.5-14.5) % Plt Count (130-400) K/uL Immature Gran % (Auto) Neut % (Auto) Lymph % (Auto) Gaines % (Auto) Eos % (Auto) Baso % (Auto) Neut # (Auto) Lymph # (Auto) Gaines # (Auto) Eos # (Auto) Baso # (Auto) Immature Gran # (Auto) Neutrophils % (Manual) Band Neutrophils % Lymphocytes % (Manual) Prolymphocyte % Reactive Lymphs % (Man) Monocytes % (Manual) Eosinophils % (Manual) Basophils % (Manual) Metamyelocytes % (Man) Myelocytes % (Man) Promyelocytes % (Man) Blast Cells % (Manual) Plasma Cell % (Manual) Other Cells % Nucleated RBC % Neutrophils # (Manual) Band Neutrophils # Total Absolute Neuts Lymphocytes # (Manual) Prolymphocyte # Reactive Lymphs # Total Abs Lymphocytes Monocytes # (Manual) Eosinophils # (Manual) Basophils # (Manual) Metamyelocytes # (Man) Myelocytes # (Manual) Promyelocytes # (Man) Blast Cells # (Man) Plasma Cell # (Manual) Other Cells # Nucleated RBCs # (Man) Hypersegmented Neuts Hyposegmented Neuts Hypogranular Neuts Large Granular Lymphs # Lrg Granular Lymphs Hairy Cells Smudge Cells Toxic Granulation Toxic Vacuolation Dohle Bodies Cat Rods Hypogranular Platelets Clumped Platelets Giant Platelets Platelet Satelliting RBC Morphology Polychromasia Hypochromasia Poikilocytosis Basophilic Stippling Anisocytosis Microcytosis Macrocytosis Spherocytes Pappenheimer Bodies Sickle Cells Target Cells Tear Drop Cells Ovalocytes Stomatocytes Rios-[place]all[place] Bodies Echinocytes Acanthocytes (Spur) Rouleaux RBC Agglutinates Schistocytes Sezary Cell PT (9.0-12.0) Seconds INR (0.9-1.1) APTT (21.0-31.0) Seconds PTT Ratio Sodium (136-145) mmol/L Potassium (3.5-5.1) mmol/L Chloride (98-107) mmol/L Carbon Dioxide (21-32) mmol/L Anion Gap (3-11) BUN (6-23) mg/dl Creatinine (0.6-1.2) mg/dl Est Cr Clr Drug Dosing Est GFR ( Amer) ml/min Est GFR (Non-Af Amer) ml/min BUN/Creatinine Ratio (10-20) Glucose (70-99(Fasting)) mg/dl Calcium (8.5-10.1) mg/dl Total Bilirubin (0.2-1.0) mg/dl AST (13-39) U/L ALT (7-52) U/L Alkaline Phosphatase (34-104) U/L Total Protein (6.0-8.3) gm/dl Albumin (3.4-5.0) gm/dl Globulin (2.5-4.0) gm/dl Albumin/Globulin Ratio (0.9-2) Blood Parasites ID Blood Type A Positive Antibody Screen NEGATIVE Crossmatch See Detail Imaging Data Attestation: I personally reviewed and interpreted this imaging study as follows: My Impression: Chest x-raycardiomegaly with some pulmonary vascular congestion. There is some possible infiltrates in the bases Head CT-no hemorrhage or mass-effect seen Radiologist's Impression: Chest X-Ray 03/14/22 14:32 XR chest 1V portable HISTORY: 51 years-old Female weakness acute weakness COMPARISON: 02/21/2022 TECHNIQUE: AP view of the chest FINDINGS: Cardiac silhouette is enlarged. Left subclavian pacer. Prior median sternotomy with cardiac valvular prosthesis. No pneumothorax. Pulmonary vascular congestion with interstitial coarsening. Mild blunting of the costophrenic angles. Mild asymmetric left lung predominant airspace opacities. Degenerative changes of the shoulders and spine. IMPRESSION: 1. Cardiomegaly with pulmonary vascular congestion. 2. There is improved aeration of the right lung compared to the prior study. 3. Left lung predominant ill-defined airspace opacities may represent asymmetric pulmonary edema versus pneumonia. ACT 112: Negative or not required by law. The above report was generated using voice recognition software. It may contain grammatical, syntax or spelling errors. Electronically signed by: Everett Ritchie M.D. 03/14/2022 3:[address] 03/14/22 14:32 CT OF THE HEAD WITHOUT CONTRAST CLINICAL HISTORY: Headache. COMPARISON STUDY: MRI of the brain June 21, [address] September 06, 2016. CT DOSE: 720.95 mGycm TECHNIQUE: Helical axial images of the head were obtained without IV contrast. Automated exposure control was utilized for the study. A dose lowering technique was utilized adhering to the principles of ALARA. FINDINGS: No acute intracranial hemorrhage, midline shift or mass effect is present. The ventricular system is unremarkable. The basal cisterns are patent. No extra-axial collections are present. There are no findings to suggest acute dural sinus thrombosis or acute territorial infarct. No significant calvarial abnormalities are present. Trace fluid within the right mastoid air cells is similar to prior CT and is stable to slightly decreased since prior MRI. There is mild ethmoid sinus mucosal thickening. Left maxillary sinus air-fluid level is partially imaged. This was shown on MRI of June 21, 2021. IMPRESSION: 1. No acute intracranial findings. 2. Paranasal sinus disease, as above. ACT 112: Negative or not required by law. Electronically signed by: Ariel Coburn M.D. 03/14/2022 2:56 PM ECG Data Attestation: I personally reviewed and interpreted this ECG as follows: Indication: + weakness Rate (beats per minute): 83 Rhythm: + other (Ventricular paced rhythm) ECG Intervals/blocks: + IVCD and + Normal QT-c ECG [place]: + Normal ECG ST segments: + Normal ST segments ECG Findings: no PACs or no PVCs Comparison ECG Date: from (02/17/22) Change: the following changes noted (Ventricular paced rhythm has replaced AV paced rhythm) MDM Narrative This patient comes in as described above she is a complex medical history she has had problems with pancytopenia and was found to be pancytopenic again with a critically low hemoglobin 5.4 and platelets 1.0. she was also hypotensive side in triage. We did establish an IV we typed and crossed her I did order her for irradiated platelets as well as irradiated packed red cells. Additional blood work was obtained she is having a headache of this not uncommon but given her platelets of [address] of her head chest x-ray was obtained, EKG shows a paced rhythm. I did touch base with the [facility] inorganic chemistry teacher, Dr. Hemphill, he did recommended admitting her for platelets of blood. I did order this in the ER. I talked to the patient at length and ordered irradiated blood and platelets. I did consent her. I know from previous visits and explained the risk and benefits which she freely consented to in the presence of her fami ly member/friend. I have consulted the hospitalist to see her in the ER and she will be admitted/observed for her pancytopenia and transfusions. Continuous cardiac monitoring: Orders placed in EMR for continuous cardiac monitoring. Upon interpretation patient noted to be in a paced rhythm with a rate of 83 be in a paced rhythm with a rate of 80 Impression & Plan Pancytopenia, Dizziness, B-cell lymphoma, Shortness of breath, Thromb ocytopenia, Anemia Discharge Plan Visit Data Chief Complaint: Testing Request Stated Complaint: TESTING REQUEST ED Provider: Hollis Alonso Discharge Problem: Pancytopenia, Dizziness, B-cell lymphoma, Shortness of breath, Thrombocytopenia, Anemia : B-cell lymphoma Qualifiers: B-cell lymphoma type: unspecified B-cell Lymphoma site: unspecified region Qualified Code(s): C85.10 - Unspecified B-cell lymphoma, unspecified site
--- NOTE | 2022-03-14 14:58 | CT Scan Report ---
CT OF THE HEAD WITHOUT CONTRAST CLINICAL HISTORY: Headache. COMPARISON STUDY: MRI of the brain June 21, [address] September 06, 2016. CT DOSE: 720.95 mGycm TECHNIQUE: Helical axial images of the head were obtained without IV contrast. Automated exposure con trol was utilized for the study. A dose lowering technique was utilized adhering to the principles o f ALARA. FINDINGS: No acute intracranial hemorrhage, midline shift or mass effect is present. The ventricular system is unremarkable. The basal cisterns are patent. No extra-axial collections are present. There are no findings to suggest acute dural sinus thrombosis or acute territorial infarct. No significant calvarial abnormalities are present. Trace fluid within the right mastoid air cells is similar to tyler or CT and is stable to slightly decreased since prior MRI. There is mild ethmoid sinus mucosal thicke maribeth. Left maxillary sinus air-fluid level is partially imaged. This was shown on MRI of June 21. IMPRESSION: 1. No acute intracranial findings. 2. Paranasal sinus disease, as above. ACT 112: Negative or not required by law. Electronically signed by: Ariel Coburn M.D. 03/14/2022 2:56 PM
[2022-03-14 15:05] LABS: Hematocrit (blood only) 16.6 % (34.1-44.9); Hemoglobin 5.6 g/dl (12.0-16.0); Mean Corpuscular Hemoglobin 28.9 pg (25.0-34.0); Mean Corpuscular Hgb Conc 33.7 g/dL (32.0-36.0); Mean Corpuscular Volume 85.6 fL (80.0-100.0); Platelet Count 1 K/uL (130-400); RDW Coefficient of Variation 13.6 % (11.5-14.5); RDW Standard Deviation 42.1 fL (36.4-46.3); Red Blood Count 1.94 M/uL (3.93-5.22); White Blood Count 0.48 K/ul (4.8-10.8)
--- NOTE | 2022-03-14 15:07 | History & Physical Report ---
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 Hgb of 5.6, plt of 1 today - Recent hospitalizations include [facility] from 02/16-02/22 and [facility] from 02/22-03/09 Notes from discharge summary reviewed personally- [facility] d/c summary included the following: - It was suspected that the cause of pancytopenia was due to chemotherapy, currently on hold, last dose was over 2 months ago, and exacerbated by recent COVID illness. She underwent extensive infectious work-up which was negative at [facility]. She also underwent a bone marrow biopsy given persistent pancytopenia to rule out recurrence of lymphoma/leukemia and being administered Neupogen. Biopsy showed markedly hypocellular bone marrow with occasional lymphohistiocytic aggregates, focal stromal damage, increased storage iron. Neupogen did not improve her counts and was discontinued prior to discharge. She received a total of 3 units PRBCs and 5 units platelets while at [facility]. Her blood counts did not show signs of recovery, and without clear etiology and timeframe of when she would recover, decision was made between primary team, transplant nephrology and hematology that the patient could be discharged home with close follow-up. 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 1st kidney transplant was in 1984 which lasted for 5 years, then in 1990 she had another transplantation.Pt has been maintained increased hospital stay to 5 daily, cyclosporine (recently held supposed to be restarted at half dose pending count improvement) - On admission: plt =1, Hgb 5.6, WBC 0.38 - Consult nephrology for renal cell transplant as above - Cr. 2.27, BUN 40 -- baseline cr is 2.0-2.2 upon outpt epic review - Continue home medications including prednisone, continue holding cyclophosphamide for suppression as per [facility] recs as count have not recovered - Hx of last chemo therapy was on 01/30/22, follows with Dr. Chad Clemons- Ibrut inib remains on hold since mid Jan 2022., - No current spontaneous bleed with thrombocytopenia - Recent heme/onc follow up was on 03/10/22 - had platelet transfusion at [facility] due to persistent pancytopenia and was advised to transfuse platelets if counts less than 10, blood if hgb less than 7. Planned to check blood work twice per week as outpt. - Hx of aortic valve replacement in 2017 DVT ppx: - teds, scds, no chemical ppx in the setting of acute thrombocytopenia CODE: Full code Dispo: From home, likely to remain in the hospital x for > 2 days. Multiple readmissions. Poor prognosis. Time spent involving this patient's care includes time face to face, discussion with family, chart review including that from multiple recent hospitalizations, imaging and laboratory review was 85 minutes. History of Present Illness Primary Care Provider: Stuart Ravi MD This is a 51-year-old female with significant PMHx of marginal zone lymphoma, cold agglutinin anemia, cardiac pacemaker in situ, aortic valve replacement, hx of renal transplant, HTN, HLD, chronic pain syndrome, who presents with worsening weakness. She reports increased lethargy over the past 3 days. Pt was recently admitted here at this facility [facility] 02/16/22 and was transferred from [facility] to [place] on 02/22/22 and was there through the when she was discharged home. She went to a her PCP for post-discharge follow up today with PCP and found to have hgb of 5 again today and platelet count of 1 today. She admits to severe fatigue, not feeling herself. Reports her hgb at time of discharge from [place] was above 7. While she was there she had multiple platelet transfusions. At the time of discharge her cyclosporine was held and she was told to restart this at half the dose once counts recovered. Her prednisone was increased to 5 mg daily. Pt does not feel well. She notes feeling lightheaded at times so was checking bps at home, her results indicated positive orthostatic pressure and this has gone on for about 3 days. She is taking her home medications as directed and is well versed in what is currently on hold and other adjustments after her last discharge. Pt has complaints of issues with swallowing. She was off cimetidine and replaced with famotidine, but reports that famotidine does not work for her. Pt is requesting something to eat. She admits to on and off nausea but not using anti-emetics due to prolonged QTC. Her mother, Madison, is present with her at bedside. Allergies Allergy/AdvReac Type Severity Reaction Status Date / Time hydralazine Allergy Severe Hives Verified 03/10/22 14:14 morphine Allergy Severe Hives Verified 03/10/22 14:14 nitroglycerin AdvReac Severe Migraine Verified 03/10/22 14:14 valacyclovir AdvReac Severe Vomiting Verified 03/10/22 14:14 Home Medications Medication Instructions Recorded Confirmed Type folic acid 1 mg tablet 1 mg PO QAM 03/13/18 03/14/22 History multivitamin 1 tab PO QAM 03/13/18 03/14/22 History montelukast 10 mg tablet 10 mg PO QAM 10/24/18 03/14/22 History buspirone 5 mg tablet 5 mg PO Q8 01/08/19 03/14/22 History cimetidine 400 mg tablet 400 mg PO AMHS 01/08/19 03/14/22 History pantoprazole 40 mg tablet,delayed 40 mg PO AMHS 01/08/19 03/14/22 History release (Protonix) rosuvastatin 5 mg tablet (Crestor) 5 mg PO HS 01/08/19 03/14/22 History tramadol 100 mg tablet,extended See Rx Instructions .Route .COMPLEX 03/09/19 03/14/22 History release 24 hr mirtazapine 45 mg tablet 45 mg PO HS 01/21/20 03/14/22 History polyethylene glycol 3350 17 gram 17 g PO DAILY 01/21/20 03/14/22 History oral powder packet (Miralax) amlodipine 2.5 mg tablet 2.5 mg PO QPM 06/15/20 03/14/22 History ibrutinib 280 mg tablet 280 mg PO .ON HOLD 06/15/20 03/14/22 History labetalol 300 mg tablet 300 mg PO Q8H 09/21/20 03/14/22 History sodium bicarbonate 650 mg tablet 1,300 mg PO AMHS 09/21/20 03/14/22 History ramelteon 8 mg tablet 8 mg PO HS 01/13/22 03/14/22 History L.acidoph-L.rhamn-B.bifidum-B.long 2 tab PO DAILY 01/27/22 03/14/22 History 12.9 mg (2 billion cell) tablet, DR (Probiotic Acidophilus Biobeaadriel) allopurinol 300 mg tablet 300 mg PO .ON HOLD 01/27/22 03/14/22 History amoxicillin 500 mg capsule 2,000 mg PO ONCE PRN 1 hr prior to 01/27/22 03/14/22 History dental procedure aspirin 81 mg chewable tablet 81 mg PO QAM 01/27/22 03/14/22 History (Aspirin Childrens) cyclosporine modified 50 mg capsule 50 mg PO .ON HOLD 01/27/22 03/14/22 History erenumab-aooe 70 mg/mL 70 mg subcut MONTHLY 01/27/22 03/14/22 History subcutaneous auto-injector (Aimovig Autoinjector) fexofenadine 180 mg tablet 180 mg PO DAILY 01/27/22 03/14/22 History ketotifen fumarate 0.025 % (0.035 1 drp ophthalmic (eye) BID PRN as 01/27/22 03/14/22 History %) eye drops direceted magnesium chloride 64 mg 64 mg PO QAM 01/27/22 03/14/22 History (magnesium chloride) tablet,delayed release memantine 5 mg tablet 5 mg PO BIDM 01/27/22 03/14/22 History metaxalone 800 mg tablet 800 mg PO Q8 01/27/22 03/14/22 History metoclopramide HCl 5 mg tablet 5 mg PO .ON HOLD PRN Nausea And 01/27/22 03/14/22 History Vomiting ondansetron HCl 4 mg tablet 4 mg PO .ON HOLD PRN Nausea 01/27/22 03/14/22 History oxycodone 5 mg tablet 5 mg PO Q6H 01/27/22 03/14/22 History triamcinolone acetonide 55 mcg 2 spray intranasal DAILY 01/27/22 03/14/22 History nasal spray aerosol zinc gluconate 50 mg tablet 100 mg PO DAILY 01/27/22 03/14/22 History zolpidem 10 mg tablet 10 mg PO HS 02/16/22 03/14/22 History ascorbic acid (vitamin C) 1,000 mg 1 g PO Q6 03/10/22 03/14/22 History tablet (Vitamin C) prednisone 5 mg tablet 5 mg PO QAM 03/14/22 03/14/22 History Past Med/Surg History Medical History (Updated 03/14/22 @ 16:19 by Cecille Miller PA-C) Acute hyponatremia Acute pancreatitis Acute UTI Anxiety Aortic regurgitation "s/p bioprosthetic AVR" Autoimmune hemolytic anemia B-cell lymphoma diagnosed 03/2019--chemo Carcinoma in situ removed in office Cervicalgia Chronic back pain Chronic pancreatitis CKD (chronic kidney disease), stage III Dehydration Depression Dyslipidemia ESBL (extended spectrum beta-lactamase) producing bacteria infection Essential hypertension Gastroparesis GERD (gastroesophageal reflux disease) History of DVT (deep vein thrombosis) History of herpes zoster 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" History of pericarditis History of renal calculi Hypertension Hypertensive heart disease Leukopenia Macular degeneration Marginal zone lymphoma Migraine headache Nausea and vomiting after administration of anesthetic agent Neurofibromatosis Pancreatic cyst Pancytopenia Recurrent UTI Renal transplant recipient Ulcerative colitis UTI (urinary tract infection) Surgical History (Updated 03/14/22 @ 16:19 by Cecille Miller PA-C) Cardiac pacemaker in situ meditronic @ [facility] 01/26/2017 H/O aortic valve replacement H/O prior ablation treatment percutaneous peripheral nerve / C5-C6 ablation History of biopsy renal History of cardiac cath 2016 prior to AVR--no stent History of chest tube placement History of colonoscopy History of cystoscopy History of esophagogastroduodenoscopy (EGD) History of lithotripsy History of renal transplant History of tonsillectomy and adenoidectomy History of tooth extraction History of wisdom tooth extraction Status post aortic valve replacement with bioprosthetic valve @ [facility] 01/23/2017--follows with Dr. Rizo Status post -donor kidney transplantation 12/1984--removed 01/1990 Status post living-donor kidney transplantation in 06/1990 Family History Grandmother (Maternal) Coronary heart disease Family history of diabetes mellitus Grandfather (Paternal) Coronary heart disease Mother Kidney donor Other No family history of adverse response to anesthesia No family history of kidney disease Social History Smoking Status: Never smoker Tobacco Type: Cigarettes Second Hand Exposure: No; Hx Alcohol Use: No Hx Substance Use: No Preferred Language: Uzbek Communication Ability: Effective Seaming Machine Operator Required: No Beliefs That Will Affect Care: Church marital status: Current Living Situation: Spouse Current Living Situation Comment: Feels Safe at Home: Yes Assistive Devices: None Review of Systems Review of Systems: Constitutional: No fever, sweats or chills. + Fatigue and lethargy Eyes: No diplopia, no worsening or blurred vision ENT: normal hearing, + difficulty swallowing at times as per HPI Respiratory: No cough, sputum, dyspnea at rest or on exertion Cardiovascular: No chest pain, tightness or palpitations Abdomen: No pain, nausea, vomiting, diarrhea or constipation Musculoskeletal: No joint pain, calf pain, swelling Neurologic: + Generalized weakness, no numbness/tingling, or balance problems Psychiatric: No anxiety or depression Skin: No rash or itch Physical Exam Physical Exam: General: awake, alert, no apparent distress, + chronically ill- appearing, + pallor, appears older than stated age Head: Normocephalic, atraumatic ENT: PERRL, EOMI, no pharyngeal exudate, + mucous membranes dry Chest: Clear to auscultation, on room air, no adventitious breath sounds Cardiac: Regular rate and rhythm, no murmur, no JVD, normal peripheral pulses, good capillary refill Abdominal: NABS x 4 quadrants, soft, nondistended, nontender to palpation, no rebound or guarding Extremities: Normal inspection, no peripheral edema or erythema, calfs nontender to palpation Psych: Depressed mood and affect Skin: Pallor Neuro: AAO x 3, strength intact bilaterally and rated 5/5, no motor deficits, speech is clear, no peripheral sensory deficits Results & Data Results & Data ([facility]) Vital Signs (Past 12 Hours) Vital Signs Temp Pulse Resp BP Pulse Ox O2 Del Method 03/14/22 14:02 36.5 C 85 19 85/62 L 96 Room Air Laboratory Results 03/14/22 03/14/22 03/14/22 16:03 14:26 14:15 WBC RBC Hgb Hct MCV MCH MCHC RDW Std Deviation RDW Coeff of Delia Plt Count Immature Gran % (Auto) Neut % (Auto) Lymph % (Auto) Cavalier % (Auto) Eos % (Auto) Baso % (Auto) Neut # (Auto) Lymph # (Auto) Cavalier # (Auto) Eos # (Auto) Baso # (Auto) Immature Gran # (Auto) Neutrophils % (Manual) Band Neutrophils % Lymphocytes % (Manual) Prolymphocyte % Reactive Lymphs % (Man) Monocytes % (Manual) Eosinophils % (Manual) Basophils % (Manual) Metamyelocytes % (Man) Myelocytes % (Man) Promyelocytes % (Man) Blast Cells % (Manual) Plasma Cell % (Manual) Other Cells % Nucleated RBC % Neutrophils # (Manual) Band Neutrophils # Total Absolute Neuts Lymphocytes # (Manual) Prolymphocyte # Reactive Lymphs # Total Abs Lymphocytes Monocytes # (Manual) Eosinophils # (Manual) Basophils # (Manual) Metamyelocytes # (Man) Myelocytes # (Manual) Promyelocytes # (Man) Blast Cells # (Man) Plasma Cell # (Manual) Other Cells # Nucleated RBCs # (Man) Hypersegmented Neuts Hyposegmented Neuts Hypogranular Neuts Large Granular Lymphs # Lrg Granular Lymphs Hairy Cells Smudge Cells Toxic Granulation Toxic Vacuolation Dohle Bodies Cat Rods Hypogranular Platelets Clumped Platelets Giant Platelets Platelet Satelliting RBC Morphology Polychromasia Hypochromasia Poikilocytosis Basophilic Stippling Anisocytosis Microcytosis Macrocytosis Spherocytes Pappenheimer Bodies Sickle Cells Target Cells Tear Drop Cells Ovalocytes Stomatocytes Rios-[place]isp[place] Bodies Echinocytes Acanthocytes (Spur) Rouleaux RBC Agglutinates Schistocytes Sezary Cell PT 14.6 H INR 1.4 H APTT 36.9 H PTT Ratio 1.3 Sodium Potassium Chloride Carbon Dioxide Anion Gap BUN Creatinine Est Cr Clr Drug Dosing Est GFR ( Amer) Est GFR (Non-Af Amer) BUN/Creatinine Ratio Glucose Calcium Total Bilirubin AST ALT Alkaline Phosphatase Total Protein Albumin Globulin Albumin/Globulin Ratio SARS-CoV-2, RNA, NAAT POSITIVE A* Blood Parasites ID Blood Type A Positive Antibody Screen NEGATIVE Crossmatch See Detail 03/14/22 03/14/22 14:15 14:15 WBC 0.48 L* RBC 1.94 L Hgb 5.6 L* Hct 16.6 L* MCV 85.6 MCH 28.9 MCHC 33.7 RDW Std Deviation 42.1 RDW Coeff of Delia 13.6 Plt Count 1 L* Immature Gran % (Auto) Cancelled Neut % (Auto) Cancelled Lymph % (Auto) Cancelled Cavalier % (Auto) Cancelled Eos % (Auto) Cancelled Baso % (Auto) Cancelled Neut # (Auto) Cancelled Lymph # (Auto) Cancelled Cavalier # (Auto) Cancelled Eos # (Auto) Cancelled Baso # (Auto) Cancelled Immature Gran # (Auto) Cancelled Neutrophils % (Manual) Cancelled Band Neutrophils % Cancelled Lymphocytes % (Manual) Cancelled Prolymphocyte % Cancelled Reactive Lymphs % (Man) Cancelled Monocytes % (Manual) Cancelled Eosinophils % (Manual) Cancelled Basophils % (Manual) Cancelled Metamyelocytes % (Man) Cancelled Myelocytes % (Man) Cancelled Promyelocytes % (Man) Cancelled Blast Cells % (Manual) Cancelled Plasma Cell % (Manual) Cancelled Other Cells % Cancelled Nucleated RBC % Cancelled Neutrophils # (Manual) Cancelled Band Neutrophils # Cancelled Total Absolute Neuts Cancelled Lymphocytes # (Manual) Cancelled Prolymphocyte # Cancelled Reactive Lymphs # Cancelled Total Abs Lymphocytes Cancelled Monocytes # (Manual) Cancelled Eosinophils # (Manual) Cancelled Basophils # (Manual) Cancelled Metamyelocytes # (Man) Cancelled Myelocytes # (Manual) Cancelled Promyelocytes # (Man) Cancelled Blast Cells # (Man) Cancelled Plasma Cell # (Manual) Cancelled Other Cells # Cancelled Nucleated RBCs # (Man) Cancelled Hypersegmented Neuts Cancelled Hyposegmented Neuts Cancelled Hypogranular Neuts Cancelled Large Granular Lymphs Cancelled # Lrg Granular Lymphs Cancelled Hairy Cells Cancelled Smudge Cells Cancelled Toxic Granulation Cancelled Toxic Vacuolation Cancelled Dohle Bodies Cancelled Cat Rods Cancelled Hypogranular Platelets Cancelled Clumped Platelets Cancelled Giant Platelets Cancelled Platelet Satelliting Cancelled RBC Morphology Cancelled Polychromasia Cancelled Hypochromasia Cancelled Poikilocytosis Cancelled Basophilic Stippling Cancelled Anisocytosis Cancelled Microcytosis Cancelled Macrocytosis Cancelled Spherocytes Cancelled Pappenheimer Bodies Cancelled Sickle Cells Cancelled Target Cells Cancelled Tear Drop Cells Cancelled Ovalocytes Cancelled Stomatocytes Cancelled Rios-[place] Bodies Cancelled Echinocytes Cancelled Acanthocytes (Spur) Cancelled Rouleaux Cancelled RBC Agglutinates Cancelled Schistocytes Cancelled Sezary Cell Cancelled PT INR APTT PTT Ratio Sodium 132 L Potassium 4.0 Chloride 94 L Carbon Dioxide 26 Anion Gap 12 H BUN 40 H Creatinine 2.27 H Est Cr Clr Drug Dosing Not Reportable Est GFR ( Amer) 28.2 Est GFR (Non-Af Amer) 24.4 BUN/Creatinine Ratio 17.6 Glucose 113 H Calcium 8.8 Total Bilirubin 0.7 AST 29 ALT 45 Alkaline Phosphatase 66 Total Protein 6.3 Albumin 2.9 L Globulin 3.4 Albumin/Globulin Ratio 0.9 SARS-CoV-2, RNA, NAAT Blood Parasites ID Cancelled Blood Type Antibody Screen Crossmatch Diagnostic Findings Chest X-Ray 03/14/22 14:32 XR chest 1V portable HISTORY: 51 years-old Female weakness acute weakness COMPARISON: 02/21/2022 TECHNIQUE: AP view of the chest FINDINGS: Cardiac silhouette is enlarged. Left subclavian pacer. Prior median sternotomy with cardiac valvular prosthesis. No pneumothorax. Pulmonary vascular congestion with interstitial coarsening. Mild blunting of the costophrenic angles. Mild asymmetric left lung predominant airspace opacities. Degenerative changes of the shoulders and spine. IMPRESSION: 1. Cardiomegaly with pulmonary vascular congestion. 2. There is improved aeration of the right lung compared to the prior study. 3. Left lung predominant ill-defined airspace opacities may represent asymmetric pulmonary edema versus pneumonia. ACT 112: Negative or not required by law. The above report was generated using voice recognition software. It may contain grammatical, syntax or spelling errors. Electronically signed by: Everett Ritchie M.D. 03/14/2022 3:[address] 03/14/22 14:32 CT OF THE HEAD WITHOUT CONTRAST CLINICAL HISTORY: Headache. COMPARISON STUDY: MRI of the brain June 21, [address] September 06, 2016. CT DOSE: 720.95 mGycm TECHNIQUE: Helical axial images of the head were obtained without IV contrast. Automated exposure control was utilized for the study. A dose lowering technique was utilized adhering to the principles of ALARA. FINDINGS: No acute intracranial hemorrhage, midline shift or mass effect is present. The ventricular system is unremarkable. The basal cisterns are patent. No extra-axial collections are present. There are no findings to suggest acute dural sinus thrombosis or acute territorial infarct. No significant calvarial abnormalities are present. Trace fluid within the right mastoid air cells is similar to prior CT and is stable to slightly decreased since prior MRI. There is mild ethmoid sinus mucosal thickening. Left maxillary sinus air-fluid level is partially imaged. This was shown on MRI of June 21, 2021. IMPRESSION: 1. No acute intracranial findings. 2. Paranasal sinus disease, as above. ACT 112: Negative or not required by law. Electronically signed by: Ariel Coburn M.D. 03/14/2022 2:56 PM ECG Additional Comments: Vent. Rate : 083 BPM Atrial Rate : 083 BPM P-R Int : 194 ms QRS Dur : 168 ms QT Int : 458 ms P-R-T Axes : 052 062 116 degrees QTc Int : 538 ms Atrial-sensed ventricular-paced rhythm Abnormal ECG When compared with ECG of 17-FEB-2022 05:27, Vent. rate has increased BY 23 BPM Confirmed by Genaro Ordoñez ([id number]) on 03/14/2022 2:39:29 PM Code Status & VTE Plan Code Status Full code-discussed with the patient at bedside Supervising Physician Co-Signing Physician Notes Pt is a 51 y/o F with hx of Marginal zone lymphoma, Pancytopenia with autoimmune hemolytic anemia, Hx of renal transplant with CKD III, history of AVR admitted for symptomatic anemia with worsening thrombocytopenia. PE: Appeared fatigued, well developed HEENT: b/l conjunctival pallor Lungs: CTA, no wheezing or crackles Cardiac: Normal S1/s2 with systolic murmur Abd: soft, ND, NT MSK: no LE edema Psych: AAOx3, normal affect A/p: Pancytopenia with worsening anemia and thrombocytopenia: -pt is afebrile and no sign of any acute bleeding -will transfuse 2 units of PRBC and 1 unit of platelet -hold pts HTN meds due to low normal BP -admit to PCU tele -trend CBC Hx of Renal transplant with CKD III + DESIREE: -will monitor Cr -Nephro consult COVID infection: -pt had COVID 2 months ago -CXR: improved aeration with Left lung predominant ill-defined airspace opacities may represent asymmetric pulmonary edema versus pneumonia -currently does not have any respiratory symptoms -not suspecting acute infection at this time Other chronic conditions: Plan as above Agree with A/P by Cecille Miller PA-C
[2022-03-14 15:09] LABS: INR 1.4 (0.9-1.1); Partial Thromboplastin Ratio 1.3; Partial Thromboplastin Time 36.9 Seconds (21.0-31.0); Prothrombin Time 14.6 Seconds (9.0-12.0)
--- NOTE | 2022-03-14 15:12 | XRay Report ---
XR chest 1V portable HISTORY: 51 years-old Female weakness acute weakness COMPARISON: 02/21/2022 TECHNIQUE: AP view of the chest FINDINGS: Cardiac silhouette is enlarged. Left subclavian pacer. Prior median sternotomy with cardiac valvular prosthesis. No pneumothorax. Pulmonary vascular congestion with interstitial coarsening. Mild bluntin g of the costophrenic angles. Mild asymmetric left lung predominant airspace opacities. Degenerative changes of the shoulders and spine. IMPRESSION: 1. Cardiomegaly with pulmonary vascular congestion. 2. There is improved aeration of the right lung compared to the prior study. 3. Left lung predominant ill-defined airspace opacities may represent asymmetric pulmonary edema vers us pneumonia. ACT 112: Negative or not required by law. The above report was generated using voice recognition software. It may contain grammatical, syntax o r spelling errors. Electronically signed by: Everett Ritchie M.D. 03/14/2022 3:10 PM
[2022-03-14 15:26] LABS: Alanine Aminotransferase 45 U/L (7-52); Albumin Globulin Ratio 0.9 (0.9-2); Albumin Level 2.9 gm/dl (3.4-5.0); Alkaline Phosphatase 66 U/L (34-104); Anion Gap 12 (3-11); Aspartate Aminotransferase 29 U/L (13-39); BUN Creatinine Ratio 17.6 (10-20); Bilirubin,Total 0.7 mg/dl (0.2-1.0); Blood Urea Nitrogen 40 mg/dl (6-23); Calcium 8.8 mg/dl (8.5-10.1); Carbon Dioxide 26 mmol/L (21-32); Chloride 94 mmol/L (98-107); Est GFR (African American) 28.2 ml/min; Est GFR (Non-African American) 24.4 ml/min; Globulin 3.4 gm/dl (2.5-4.0); Glucose 113 mg/dl (70-99(Fasting)); Sodium 132 mmol/L (136-145); Total Protein 6.3 gm/dl (6.0-8.3)
[2022-03-14] MEDS ORDERED: TRAMADOL 100 MG SCH (18:11)
[2022-03-14] MEDS ORDERED: ONDANSETRON INJ 2 MG/ML 2 ML VIAL IV PRN (18:11)
[2022-03-14] MEDS ORDERED: ACETAMINOPHEN 1,000 MG/100 ML VIAL IV STA (20:22)
[2022-03-14] MEDS ORDERED: diphenhydrAMINE 50 MG/ML VIAL IV STA (20:22)
[2022-03-14] MEDS ORDERED: diphenhydrAMINE 50 MG/ML VIAL ONE (20:25)
[2022-03-14] MEDS ORDERED: ACETAMINOPHEN 1000 MG/100 ML IV IV ONE (20:25)
[2022-03-14] MEDS: MEMANTINE HCL 5 MG TAB PO SCH (21:00)
[2022-03-14] MEDS: busPIRone 5 MG TAB PO SCH (21:46)
[2022-03-14] MEDS: PANTOprazole 40 MG TAB PO SCH (21:46)
[2022-03-14] MEDS: ROSUVASTATIN CALCIUM 5 MG TAB PO SCH (21:47)
[2022-03-14] MEDS: SODIUM BICARBONATE 650 MG TAB PO SCH (21:47)
[2022-03-14] MEDS: traMADol HCL 50 MG TABLET PO SCH (21:49)
[2022-03-14] MEDS: MIRTAZAPINE SOLTAB 15 MG PO SCH (21:50)
[2022-03-14] MEDS: METAXALONE 800 MG TABLET PO SCH (21:50)
[2022-03-14] MEDS: cycloSPORINE 25 MG CAP PO SCH (21:56)
[2022-03-14] MEDS ORDERED: ZOLPIDEM TARTRATE 10 MG TAB PO SCH (22:00)
[2022-03-15] MEDS: FIRST - Mouthwash BLM 119 ML PO SCH ×4 (02:32→21:13)
[2022-03-15] MEDS: oxyCODONE HCL IR 5 MG TAB (IMMEDIATE RELEASE) PO PRN ×4 (02:33→21:10)
[2022-03-15] MEDS: TRIAMCINOLONE ACET NASAL SPRAY 10.8ML BTL SCH (08:40)
[2022-03-15] MEDS: SODIUM BICARBONATE 650 MG TAB PO SCH ×2 (08:42→21:16)
[2022-03-15] MEDS: MAGNESIUM CHLORIDE W/CALCIUM 64MG DELAYED REL TAB PO SCH (08:43)
[2022-03-15] MEDS: PANTOprazole 40 MG TAB PO SCH ×2 (08:43→23:25)
[2022-03-15] MEDS: cycloSPORINE 25 MG CAP PO SCH (08:43)
[2022-03-15] MEDS: FEXOFENADINE HCL 180 MG TAB PO SCH (08:43)
[2022-03-15] MEDS: MULTIVITAMIN TAB PO SCH (08:43)
[2022-03-15] MEDS: ASCORBIC ACID 500 MG TAB PO SCH (08:43)
[2022-03-15] MEDS: MEMANTINE HCL 5 MG TAB PO SCH ×2 (08:43→16:36)
[2022-03-15] MEDS: busPIRone 5 MG TAB PO SCH ×3 (08:43→21:14)
[2022-03-15] MEDS: predniSONE 5 MG TAB PO SCH (08:43)
[2022-03-15] MEDS: METAXALONE 800 MG TABLET PO SCH ×3 (08:44→21:18)
[2022-03-15] MEDS: MONTELUKAST SODIUM 10 MG TABLET PO SCH (08:44)
[2022-03-15] MEDS: ACETAMINOPHEN 325 MG TAB PO PRN ×2 (08:57→20:05)
[2022-03-15] MEDS ORDERED: NON-FORMULARY MEDICATION (Zinc Gluconate 50 mg Tablet) PO SCH (09:00)
[2022-03-15] MEDS ORDERED: FAMOTIDINE 40 MG TABLET PO SCH ×2 (09:00→21:00)
[2022-03-15] MEDS ORDERED: traMADol HCL 50 MG TABLET PO SCH (09:00)
--- NOTE | 2022-03-15 10:41 | Nephrology Consultation ---
Date of Consultation March 15, 2022 Assessment & Plan (1) History of renal transplant: renal function was at baseline on most recent labs as of yesterday. -labs when able > f/u pending results -continue prednisone -cyclosporine resumed yesterday but would hold this given ongoing severe pancytopenia and certainly would not give full dose > order cancelled; will reevaluate this as OP History of Present Illness Reason for Consultation: kidney transplant Requesting Physician: Dr Brown Attending Physician: Dayanara Tenorio MD History of Present Illness Medically complex 51 y/o F whom I'm asked to see for renal transplant care was admitted yesterday for management of pancytopenia after presenting w/ 3 days of worsening weakness and lethargy. PMH includes marginal zone lymphoma [place] [facility] [place] and as recently as late January on ibrutinib for chemotherapy on hold because of pancytopenia; also w/ hx of cold agglutinin hemolytic anemia. 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 She is on minimal outpatient immunosuppression because of her perfectly matched kidney (prednisone 5 mg daily and until 02/2022 cyclosporine). Also w/ CKD 4 baseline creatinine low to mid 2's as of last month. And extensive cardiac history including bioprosthetic aortic valve replacement 2016 and pacemaker; hx of HTN, HL, chronic pain, stones w/ hx lithotripsy, hx ESBL infection and H zoster, DVT. Admitted here w/ covid in 02/16-02/22 w/ transfer to [facility] [place] where she stayed through 03/09. She was admitted for pancytopenia attributed to ibrutinib and exacerbated by Covid. She had an extensive negative infectious work up at [facility]; also had BMBx which r/o recurrent lymphoma/leukemia. Her counts unfortunately did not respond to neupogen. Given this nonrecovery and lack of cause for pancytopenia, [facility] services opted ultimately to d/c her home w/ close f/u. This admission was also c/b prerenal DESIREE. her IS of 2.5 mg daily prednisone was doubled to 5 mg daily at hospital d/c. she was advised to hold cyclosporine and to resume at half of previous OP dose once her blood counts recover. She saw hematology in OP f/u on 12/30 and plt transfusion ordered. She was advised to transfuse platelets if <10, prbc if hgb <7. At [facility] d/c on 03/09, plts were 13K, hgb 7.5. On presentation here yesterday hgb 5.6, plts 1, WBC 0.5. Her presenting creatinine was 2.3. She reported 3 days of + orthostatics prior to admission. also w/ intermittent N on presentation. On admission she received 4 units irradiated pRBC and 1 unit of platelets. No new labs today though they were just drawn. She feels better > no dyspnea, no lightheadedness/generalized weakness; eager for d/c home. Denies new owrrisome voiding concerns or allograft pain. Allergies Allergy/AdvReac Type Severity Reaction Status Date / Time hydralazine Allergy Severe Hives Verified 03/10/22 14:14 morphine Allergy Severe Hives Verified 03/10/22 14:14 nitroglycerin AdvReac Severe Migraine Verified 03/10/22 14:14 valacyclovir AdvReac Severe Vomiting Verified 03/10/22 14:14 Home Medications Medication Instructions Recorded Confirmed Type folic acid 1 mg tablet 1 mg PO QAM 03/13/18 03/14/22 History multivitamin 1 tab PO QAM 03/13/18 03/14/22 History montelukast 10 mg tablet 10 mg PO QAM 10/24/18 03/14/22 History buspirone 5 mg tablet 5 mg PO Q8 01/08/19 03/14/22 History cimetidine 400 mg tablet 400 mg PO AMHS 01/08/19 03/14/22 History pantoprazole 40 mg tablet,delayed 40 mg PO AMHS 01/08/19 03/14/22 History release (Protonix) rosuvastatin 5 mg tablet (Crestor) 5 mg PO HS 01/08/19 03/14/22 History tramadol 100 mg tablet,extended See Rx Instructions .Route .COMPLEX 03/09/19 03/14/22 History release 24 hr mirtazapine 45 mg tablet 45 mg PO HS 01/21/20 03/14/22 History polyethylene glycol 3350 17 gram 17 g PO DAILY 01/21/20 03/14/22 History oral powder packet (Miralax) amlodipine 2.5 mg tablet 2.5 mg PO QPM 06/15/20 03/14/22 History ibrutinib 280 mg tablet 280 mg PO .ON HOLD 06/15/20 03/14/22 History labetalol 300 mg tablet 300 mg PO Q8H 09/21/20 03/14/22 History sodium bicarbonate 650 mg tablet 1,300 mg PO AMHS 09/21/20 03/14/22 History ramelteon 8 mg tablet 8 mg PO HS 01/13/22 03/14/22 History L.acidoph-L.rhamn-B.bifidum-B.long 2 tab PO DAILY 01/27/22 03/14/22 History 12.9 mg (2 billion cell) tabletDR (Probiotic Acidophilus Kaley) allopurinol 300 mg tablet 300 mg PO .ON HOLD 01/27/22 03/14/22 History amoxicillin 500 mg capsule 2,000 mg PO ONCE PRN 1 hr prior to 01/27/22 03/14/22 History dental procedure aspirin 81 mg chewable tablet 81 mg PO QAM 01/27/22 03/14/22 History (Aspirin Childrens) cyclosporine modified 50 mg capsule 50 mg PO .ON HOLD 01/27/22 03/14/22 History erenumab-aooe 70 mg/mL 70 mg subcut MONTHLY 01/27/22 03/14/22 History subcutaneous auto-injector (Aimovig Autoinjector) fexofenadine 180 mg tablet 180 mg PO DAILY 01/27/22 03/14/22 History ketotifen fumarate 0.025 % (0.035 1 drp ophthalmic (eye) BID PRN as 01/27/22 03/14/22 History %) eye drops direceted magnesium chloride 64 mg 64 mg PO QAM 01/27/22 03/14/22 History (magnesium chloride) tablet,delayed release memantine 5 mg tablet 5 mg PO BIDM 01/27/22 03/14/22 History metaxalone 800 mg tablet 800 mg PO Q8 01/27/22 03/14/22 History metoclopramide HCl 5 mg tablet 5 mg PO .ON HOLD PRN Nausea And 01/27/22 03/14/22 History Vomiting ondansetron HCl 4 mg tablet 4 mg PO .ON HOLD PRN Nausea 01/27/22 03/14/22 History oxycodone 5 mg tablet 5 mg PO Q6H 01/27/22 03/14/22 History triamcinolone acetonide 55 mcg 2 spray intranasal DAILY 01/27/22 03/14/22 History nasal spray aerosol zinc gluconate 50 mg tablet 100 mg PO DAILY 01/27/22 03/14/22 History zolpidem 10 mg tablet 10 mg PO HS 02/16/22 03/14/22 History ascorbic acid (vitamin C) 1,000 mg 1 g PO Q6 03/10/22 03/14/22 History tablet (Vitamin C) prednisone 5 mg tablet 5 mg PO QAM 03/14/22 03/14/22 History Patient History Medical History Acute pancreatitis Acute UTI Anxiety Aortic regurgitation "s/p bioprosthetic AVR" Autoimmune hemolytic anemia B-cell lymphoma diagnosed 03/2019--chemo Carcinoma in situ removed in office Cervicalgia Chronic back pain Chronic hyponatremia Chronic kidney disease Stage 4; baseline creat low 2's as of Feb 2022 Chronic pancreatitis Dehydration Depression Dyslipidemia ESBL (extended spectrum beta-lactamase) producing bacteria infection Essential hypertension Gastroparesis GERD (gastroesophageal reflux disease) History of DVT (deep vein thrombosis) History of herpes zoster 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" History of pericarditis History of renal calculi Hypertension Hypertensive heart disease Leukopenia Macular degeneration Marginal zone lymphoma Migraine headache Nausea and vomiting after administration of anesthetic agent Neurofibromatosis Pancreatic cyst Pancytopenia Recurrent UTI Renal transplant recipient Ulcerative colitis UTI (urinary tract infection) Surgical History Cardiac pacemaker in situ meditronic @ [facility] [place] 01/26/2017 H/O aortic valve replacement H/O prior ablation treatment percutaneous peripheral nerve / C5-C6 ablation History of biopsy renal History of cardiac cath 2016 prior to AVR--no stent History of chest tube placement History of colonoscopy History of cystoscopy History of esophagogastroduodenoscopy (EGD) History of lithotripsy History of renal transplant History of tonsillectomy and adenoidectomy History of tooth extraction History of wisdom tooth extraction Status post aortic valve replacement with bioprosthetic valve @ [facility] [place] 01/23/2017--follows with Dr. Rizo Status post -donor kidney transplantation 12/1984--removed 01/1990 Status post living-donor kidney transplantation in 06/1990 Family History Grandmother (Maternal) Coronary heart disease Family history of diabetes mellitus Grandfather (Paternal) Coronary heart disease Mother Kidney donor Other No family history of adverse response to anesthesia No family history of kidney disease Social History Smoking Status: Never smoker Tobacco Type: Cigarettes Second Hand Exposure: No; Hx Alcohol Use: No Hx Substance Use: No Preferred Language: Citizen Of [place] Communication Ability: Effective Clin Nurse Spec Required: No Beliefs That Will Affect Care: Confucianism Confucianism Beliefs: pt states she is zoroastrianism marital status: Current Living Situation: Spouse Current Living Situation Comment: Feels Safe at Home: Yes Safety Concerns: Feels Safe At This Time Assistive Devices: Cane and Glasses Review of Systems Review of Systems: All systems reviewed & are unremarkable except as noted in HPI & below Physical Exam Constitutional: well developed and well nourished on RA, maneuvers readily for exam Eyes: EOM intact bilaterally ENMT: Ears: no external ear abnormality Nose: no external nose abnormality Mouth: + dry oral mucous membranes Neck: no nuchal rigidity Respiratory: normal respiratory effort Auscultation: + diminished lung sounds and + crackles (L base) Cardiovascular: Rate/Rhythm: regular rhythm and + tachycardic Heart Sounds: + murmur Extremities: no edema Gastrointestinal (Abdomen): Inspection/Auscultation: normal bowel sounds Percussion/Palpation: abdomen soft; abdomen nontender Musculoskeletal: Extremities: strength 5/5 throughout Skin: no rashes, warm and dry Neurologic: dunlap, fluent speech, no tremor Psychiatric: Orientation: oriented x 3 Speech: normal rate/rhythm/volume of speech Results & Data ([facility]) Vital Signs (Past 12 Hours) Vital Signs Temp Pulse Pulse Pulse Resp BP BP 03/15/22 08:32 38.4 C H 117 H 18 130/84 03/15/22 07:32 39.0 C H 105 H 16 124/78 03/15/22 07:02 39.0 C H 108 H 18 125/78 03/15/22 07:17 102 H 03/15/22 06:47 37.4 C 111 H 18 126/82 03/15/22 07:13 37.4 C 111 H 18 126/82 03/15/22 06:11 38.0 C H 113 H 16 121/65 03/15/22 06:32 38.1 C H 103 H 16 121/80 03/15/22 04:40 37.9 C H 101 H 16 120/81 03/15/22 05:00 36.7 C 117 H 16 128/86 03/15/22 04:53 117 H 03/15/22 04:31 36.7 C 117 H 117 H 18 128/86 03/15/22 03:40 94 H 24 03/15/22 03:30 94 H 25 H 03/15/22 03:30 119/81 03/15/22 03:20 87 26 H 03/15/22 03:15 111/73 03/15/22 03:15 87 26 H 03/15/22 03:10 93 H 23 03/15/22 03:00 93 H 28 H 03/15/22 03:00 114/82 03/15/22 03:39 38 C H 87 16 119/81 03/15/22 03:10 37.7 C H 93 H 18 114/82 03/15/22 02:55 37.7 C H 93 H 16 119/91 03/15/22 02:50 94 H 26 H 03/15/22 02:45 119/91 03/15/22 02:45 103 H 20 03/15/22 02:40 106 H 18 03/15/22 02:40 128/90 03/15/22 02:32 95 H 18 03/15/22 02:20 82 22 03/15/22 02:15 113/78 03/15/22 02:14 88 22 03/15/22 02:10 88 21 03/15/22 02:40 36.8 C 105 H 17 128/90 03/15/22 02:00 82 22 03/15/22 01:50 87 20 03/15/22 01:45 113/70 03/15/22 01:45 88 21 03/15/22 01:40 88 22 03/15/22 01:30 89 22 03/15/22 01:20 81 23 03/15/22 01:10 88 21 03/15/22 01:00 85 20 03/15/22 00:50 87 23 03/15/22 00:40 77 20 03/15/22 00:30 110/79 03/15/22 00:30 82 16 03/15/22 00:20 88 21 03/15/22 00:15 87 22 03/15/22 00:15 109/63 03/15/22 00:10 91 H 20 03/15/22 00:00 79 20 03/15/22 00:00 106/73 03/14/22 23:50 86 20 03/14/22 23:45 114/72 03/14/22 23:45 88 19 03/14/22 23:40 82 19 03/14/22 23:30 88 20 03/14/22 23:30 115/71 03/14/22 23:20 78 25 H 03/14/22 23:15 114/82 03/14/22 23:15 83 19 03/15/22 00:00 37.3 C 92 H 15 106/73 03/14/22 23:00 37.3 C 87 17 114/82 03/14/22 23:10 83 19 03/14/22 23:00 89 17 03/14/22 23:00 120/80 03/14/22 22:50 94 H 20 03/14/22 22:45 107 H 21 03/14/22 22:45 135/83 03/14/22 22:43 115 H 03/14/22 22:30 91 H 21 03/14/22 22:30 117/76 03/14/22 22:20 91 H 18 03/14/22 22:15 94 H 20 03/14/22 22:15 130/86 03/14/22 22:10 94 H 20 03/14/22 22:00 95 H 15 03/14/22 22:00 124/83 03/14/22 21:50 101 H 16 03/14/22 22:30 37.7 C H 87 16 117/76 03/14/22 22:15 37.4 C 95 H 18 130/86 03/14/22 22:00 37.2 C 89 17 124/83 Pulse Ox O2 Del Method O2 Flow Rate 03/15/22 08:32 93 03/15/22 07:32 94 03/15/22 07:02 94 03/15/22 07:17 03/15/22 06:47 94 0 03/15/22 07:13 94 Room Air 03/15/22 06:11 0 03/15/22 06:32 0 03/15/22 04:40 0 03/15/22 05:00 96 0 03/15/22 04:53 03/15/22 04:31 95 Room Air 03/15/22 03:40 90 03/15/22 03:30 92 03/15/22 03:30 03/15/22 03:20 91 03/15/22 03:15 03/15/22 03:15 93 03/15/22 03:10 92 03/15/22 03:00 92 03/15/22 03:00 03/15/22 03:39 91 03/15/22 03:10 93 03/15/22 02:55 92 03/15/22 02:50 93 03/15/22 02:45 03/15/22 02:45 96 03/15/22 02:40 03/15/22 02:40 03/15/22 02:32 03/15/22 02:20 03/15/22 02:15 03/15/22 02:14 03/15/22 02:10 03/15/22 02:40 96 03/15/22 02:00 03/15/22 01:50 03/15/22 01:45 03/15/22 01:45 03/15/22 01:40 03/15/22 01:30 03/15/22 01:20 03/15/22 01:10 03/15/22 01:00 03/15/22 00:50 90 03/15/22 00:40 90 03/15/22 00:30 03/15/22 00:30 95 03/15/22 00:20 90 03/15/22 00:15 91 03/15/22 00:15 03/15/22 00:10 93 03/15/22 00:00 90 Room Air 03/15/22 00:00 03/14/22 23:50 90 Room Air 03/14/22 23:45 03/14/22 23:45 90 Room Air 03/14/22 23:40 90 Room Air 03/14/22 23:30 92 03/14/22 23:30 03/14/22 23:20 90 Room Air 03/14/22 23:15 03/14/22 23:15 90 03/15/22 00:00 94 03/14/22 23:00 93 03/14/22 23:10 90 03/14/22 23:00 91 03/14/22 23:00 03/14/22 22:50 92 03/14/22 22:45 03/14/22 22:45 03/14/22 22:43 03/14/22 22:30 92 03/14/22 22:30 03/14/22 22:20 93 03/14/22 22:15 91 03/14/22 22:15 03/14/22 22:10 92 03/14/22 22:00 91 03/14/22 22:00 03/14/22 21:50 03/14/22 22:30 93 03/14/22 22:15 94 03/14/22 22:00 94 Laboratory Results 03/14/22 14:15 03/14/22 14:15
[2022-03-15 11:52] LABS: Hematocrit (blood only) 29.2 % (34.1-44.9); Hemoglobin 10.8 g/dl (12.0-16.0); Mean Corpuscular Hemoglobin 29.8 pg (25.0-34.0); Mean Corpuscular Volume 80.7 fL (80.0-100.0); Platelet Count 5 K/uL (130-400); RDW Coefficient of Variation 12.8 % (11.5-14.5); RDW Standard Deviation 37.3 fL (36.4-46.3); Red Blood Count 3.62 M/uL (3.93-5.22); White Blood Count 0.25 K/ul (4.8-10.8)
[2022-03-15 12:05] LABS: BUN Creatinine Ratio 21.6 (10-20); Calcium 8.9 mg/dl (8.5-10.1); Creatinine Clr Calc Pharmacy 35.5 ml/min; Est GFR (African American) 38.4 ml/min; Est GFR (Non-African American) 33.1 ml/min; Potassium 3.4 mmol/L (3.5-5.1)
--- NOTE | 2022-03-15 15:02 | Hospitalist Progress Note ---
Date of Service March 15, 2022 Assessment & Plan (1) Pancytopenia: (2) Autoimmune hemolytic anemia: (3) Cold agglutinin disease: (4) Marginal zone lymphoma: (5) H/O aortic valve replacement: (6) DESIREE (acute kidney injury): (7) History of renal transplant: Plan: Appreciate Nephrology input, continue prednisone. Hold Cyclosporine given her severe pancytopenia Plan Neutropenic Fever -Obtain blood cultures x 2. Urinalysis. Start Cefepime for empiric coverage Severe Pancytopenia -No clear etiology, recent workup including bone marrow biopsy -Transfuse for Hb < 7 and Platelet <10. s/p 4 units pRBC and 1 unit platelet. Will order another 1 unit platelet now -Follow up with Hematology Chronic neck/back pain -continue home medications DVT ppx SCDs, no AC due to thrombocytopenia Admission and Anticipated Discharge Date Admission Date: March 14, 2022 Subjective Feels better, still feels weak Reports chronic neck, upper back pain Febrile currently Physical Exam Physical Exam: Appears weak, drowsy, no acute distress Respiratory: Breathing comfortably on room air, no wheezing/rhonchi/rales Cardiovascular: Tachycardic, no murmurs/rubs/gallops Gastrointestinal (Abdomen): Soft, non tender Musculoskeletal: No edema Results & Data Results & [facility] ([facility]) Vital Signs (Past 12 Hours) Vital Signs Temp Pulse Pulse Pulse Resp BP BP 03/15/22 07:59 03/15/22 09:32 38.1 C H 114 H 18 118/69 03/15/22 08:32 38.4 C H 117 H 18 130/84 03/15/22 07:32 39.0 C H 105 H 16 124/78 03/15/22 07:02 39.0 C H 108 H 18 125/78 03/15/22 07:17 102 H 03/15/22 06:47 37.4 C 111 H 18 126/82 03/15/22 07:13 37.4 C 111 H 18 126/82 03/15/22 06:11 38.0 C H 113 H 16 121/65 03/15/22 06:32 38.1 C H 103 H 16 121/80 03/15/22 04:40 37.9 C H 101 H 16 120/81 03/15/22 05:00 36.7 C 117 H 16 128/86 03/15/22 04:53 117 H 03/15/22 04:31 36.7 C 117 H 117 H 18 128/86 03/15/22 03:40 94 H 24 03/15/22 03:30 94 H 25 H 03/15/22 03:30 119/81 03/15/22 03:20 87 26 H 03/15/22 03:15 111/73 03/15/22 03:15 87 26 H 03/15/22 03:10 93 H 23 03/15/22 03:39 38 C H 87 16 119/81 03/15/22 03:10 37.7 C H 93 H 18 114/82 Pulse Ox O2 Del Method O2 Flow Rate 03/15/22 07:59 Room Air 03/15/22 09:32 93 03/15/22 08:32 93 03/15/22 07:32 94 03/15/22 07:02 94 03/15/22 07:17 03/15/22 06:47 94 0 03/15/22 07:13 94 Room Air 03/15/22 06:11 0 03/15/22 06:32 0 03/15/22 04:40 0 03/15/22 05:00 96 0 03/15/22 04:53 03/15/22 04:31 95 Room Air 03/15/22 03:40 90 03/15/22 03:30 92 03/15/22 03:30 03/15/22 03:20 91 03/15/22 03:15 03/15/22 03:15 93 03/15/22 03:10 92 03/15/22 03:39 91 03/15/22 03:10 93
[2022-03-15 15:52] LABS: Appearance Urine Clear (Clear); Bacteria Urine Automated 4+ (Negative); Bilirubin Urine Negative (Negative); Blood Urine 1+ (Negative); Cast Urine Automated 0 /lpf (0-5); Color Urine Yellow; Epithelial Cell Urine Auto 20-30 /lpf (0-5); Glucose Urine UA Negative (Negative); Ketones Urine Negative (Negative); Leukocyte Esterase Urine Negative (Negative); Nitrite Urine Negative (Negative); Protein Urine 2+ (Negative); Specific Gravity Urine 1.016 (1.000-1.030); Urobilinogen Urine Negative (Negative)
[2022-03-15] MEDS: CEFEPIME 2,000 MG in SYRINGE 0 ML IV SCH (16:35)
[2022-03-15] MEDS: MIRTAZAPINE SOLTAB 15 MG PO SCH (21:17)
[2022-03-15] MEDS: ROSUVASTATIN CALCIUM 5 MG TAB PO SCH (21:18)
[2022-03-15] MEDS ORDERED: CEFEPIME 2,000 MG in SYRINGE 0 ML IV SCH (22:00)
[2022-03-15] MEDS: CIMETIDINE 400 MG PO SCH (23:25)
[2022-03-15] MEDS: traMADol HCL 50 MG TABLET PO SCH (23:29)
[2022-03-16] MEDS ORDERED: ZOLPIDEM TARTRATE 10 MG TAB PO SCH
[2022-03-16] MEDS: FIRST - Mouthwash BLM 119 ML PO SCH ×2 (02:37→10:38)
[2022-03-16] MEDS: CEFEPIME 2,000 MG in SYRINGE 0 ML IV SCH (05:04)
[2022-03-16] MEDS: oxyCODONE HCL IR 5 MG TAB (IMMEDIATE RELEASE) PO PRN (05:04)
[2022-03-16] MEDS ORDERED: MAG SULFATE 50% 1GM/2ML VIAL IV ONE (06:58)
[2022-03-16] MEDS ORDERED: SODIUM BICARB 8.4% INJ 50 MEQ/50 ML SYR IV ONE (06:58)
[2022-03-16] MEDS ORDERED: SODIUM CHLORIDE 0.9% INJ 10 ML VIAL IV ONE (06:58)
[2022-03-16] MEDS ORDERED: SODIUM CHLORIDE 0.9% 10ML FLUSH IV ONE (06:58)
[2022-03-16] MEDS ORDERED: SUCCINYLCHOLINE CHLORIDE 20 MG/ML 10 ML VIAL IV ONE (07:08)
[2022-03-16] MEDS ORDERED: ETOMIDATE 2 MG/ML 20 ML VIAL IV ONE (07:08)
[2022-03-16 08:00] LABS: Hematocrit (blood only) 28.9 % (34.1-44.9); Hemoglobin 10.7 g/dl (12.0-16.0); Mean Corpuscular Hemoglobin 29.3 pg (25.0-34.0); Mean Corpuscular Volume 79.2 fL (80.0-100.0); Mean Platelet Volume 10.9 fL (9.4-12.3); Platelet Count 25 K/uL (130-400); RDW Coefficient of Variation 13.6 % (11.5-14.5); RDW Standard Deviation 39.5 fL (36.4-46.3); Red Blood Count 3.65 M/uL (3.93-5.22); White Blood Count 0.59 K/ul (4.8-10.8)
[2022-03-16 08:03] LABS: BUN Creatinine Ratio 23.9 (10-20); Calcium 8.5 mg/dl (8.5-10.1); Est GFR (African American) 36.4 ml/min; Est GFR (Non-African American) 31.4 ml/min; Potassium 3.6 mmol/L (3.5-5.1)
[2022-03-16 08:12] LABS: Echinocytes 1+; Lymphocytes # (auto) 0.55 K/uL (1.2-3.4); Lymphocytes % (auto) 93.2 %; Monocytes # (auto) 0.01 K/uL (0.24-0.82); Monocytes % (auto) 1.7 %; Neutrophils # (auto) 0.03 K/uL (1.4-6.5); Neutrophils % (auto) 5.1 %
[2022-03-16] MEDS ORDERED: RAPID SEQUENCE INDUCTION BAG ONE (08:33)
--- NOTE | 2022-03-16 08:47 | Communication Note ---
Date of Service: March 16, 2022 Patient went into V tach arrest this morning. ROSC achieved. Now intubated. Moving to MICU. William Burgos notified.
[2022-03-16] MEDS: Standard Conc 16mcg/mL; 4mg in 250mL IV SCH ×3 (08:50→18:24)
--- NOTE | 2022-03-16 08:50 | Emergency Department Note ---
ED Visit Note CODE BLUE: Date: 03/16/2022. Time: 8:20am Called to room 230 for code blue Code being run by nursing staff Code Status: Full per Nursing Staff Brief summary: 51-year-old female admitted to the hospital yesterday afternoon for weakness and low platelets. Patient became unresponsive and lost pulses this morning. ACLS started. By my arrival she had had an IO placed in the right arellano, she was being bagged, compressions ongoing and on monitor was noted to be in V. fib on rhythm/pulse check. Patient electro-cardioverted compressions continued. Briefly regained pulses with some neurologic response before losing pulses again ACLS continued. She was given further dose Epinephrine as well as a dose of bicarb given her history of renal transplant and arrest. Patient was intubated by me without difficulty. Patient handed off to critical care team at bedside. Endotracheal Intubation Indication: Respiratory failure secondary to cardiopulmonary arrest The patient was being bagged by respiratory with BVM. Suction, airway equipment, RSI drugs, respiratory equipment, and appropriate personnel were prepared prior to the initiation of the procedure. A time out was taken. Induction was performed with etomidate and succinylcholine. After observing the clinical benefit of the medications, the airway was easily visualized utilizing a glide scope #3 blade 7.5 size ETT tube was placed atraumatically to 23 cm using standard technique. The cuff inflated without signs of malfunction. There were bilateral breath sounds, positive colormetric change, no gastric sounds, a good capnography waveform. There were no complications. Corey Banks MD : B-cell lymphoma Qualifiers: B-cell lymphoma type: unspecified B-cell Lymphoma site: unspecified region Qualified Code(s): C85.10 - Unspecified B-cell lymphoma, unspecified site
[2022-03-16 08:54] LABS: A calco-baum cmplx NotReported Not Detected (NotDetected); Bact fragilis Not Reported Not Detected (NotDetected); C auris Not Reported Not Detected (NotDetected); CTX-M Resistant Gene Not Detected (NotDetected); Calbicans Not Reported Not Detected (NotDetected); Candida glabrata Not Reported Not Detected (NotDetected); Candida krusei Not Reported Not Detected (NotDetected); Cneoformans/gatti Not Reported Not Detected (NotDetected); Cparapsilosis Not Reported Not Detected (NotDetected); Ctropicalis Not Reported Not Detected (NotDetected); E cloacae compx Not Reported Not Detected (NotDetected); Efaecalis Not Reported Not Detected (NotDetected); Efaecium Not Reported Not Detected (NotDetected); Enterobacterales DETECTED (NotDetected); Enterobacterales Not Reported DETECTED (NotDetected); Escherichia coli Not Reported DETECTED (NotDetected); H influenzae Not Reported Not Detected (NotDetected); IMP Resistant Gene Not Detected (NotDetected); K aerogenes Not Reported Not Detected (NotDetected); KPC Resistant Gene Not Detected (NotDetected); Koxytoca Not Reported Not Detected (NotDetected); Kpneumoniae grp Not Reported Not Detected (NotDetected); Lmonocyt Not Reported Not Detected (NotDetected); N meningitidis Not Reported Not Detected (NotDetected); NDM Resistant Gene Not Detected (NotDetected); OXA 48 Like Resistant Gene Not Detected (NotDetected); P aeruginosa Not Reported Not Detected (NotDetected); Proteus spp Not Reported Not Detected (NotDetected); Salmonella spp Not Reported Not Detected (NotDetected); Smarcescens Not Reported Not Detected (NotDetected); Staph lugdunensis Not Reported Not Detected (NotDetected); Staph spp. Not Reported Not Detected (NotDetected); Staphaureus Not Reported Not Detected (NotDetected); Staphepi Not Reported Not Detected (NotDetected); Stenmaltophilia Not Reported Not Detected (NotDetected); Strep agal(GrpB) Not Reported Not Detected (NotDetected); Strep pneum Not Reported Not Detected (NotDetected); Strep pyog (GrpA) Not Reported Not Detected (NotDetected); Strep spp Not Reported DETECTED (NotDetected); VIM Resistant Gene Not Detected (NotDetected); mcr-1 Colistin Resistant Gene Not Detected (NotDetected)
[2022-03-16] MEDS ORDERED: STAT IV Infusion **Titration per Protocol STA ×2 (09:03→10:40)
[2022-03-16] MEDS ORDERED: PROPOFOL BOLUS FROM BAG IV PRN (09:03)
[2022-03-16] MEDS ORDERED: PROPOFOL IV EMULSION 10 MG/ML 100 ML VIAL IV ONE (09:04)
--- NOTE | 2022-03-16 09:11 | Critical Care Consultation ---
Date of Consultation March 16, 2022 Assessment & Plan (1) Pancytopenia: (2) H/O aortic valve replacement: (3) Pneumonia: (4) Febrile neutropenia: (5) DESIREE (acute kidney injury): (6) Thrombocytopenia: (7) Immunocompromised: (8) Cardiac arrest: Plan Reason Critically Ill: 51-year-old female past medical history of renal cell transplant, marginal cell,, pancytopenia was admitted to the hospital for anemia and generalized lethargy. Had a cardiac arrest with V. fib on 03/16/2022. In the ICU intubated for further care Neuro - [facility] ICU: Negative Avoid fentanyl given the prolonged QTC Continue with propofol and as needed Dilaudid Cardiac - -- Cardiac arrest Had episode of V. fib, was shocked times once Etiology is unclear Patient does have prolonged QTC of 480 when she came to the hospital Avoid QT prolonging medication Keep potassium greater than 4, magnesium greater than 2, phosphorus greater than 3 -- Prolonged QTC Avoid QT prolonging medications Respiratory - -- VDRF LABA protection s/p cardiac arrest Continue with ventilatory support Keep RASS -1 --Left lower lobe consulted process Likely aspiration pneumonia Continue with cefepime, will add Flagyl GI - Continue with pantoprazole RENAL/LYTES - -- DESIREE on CKD Likely from cardiac arrest and hypotensive episode Monitor BUN/creatinine Avoid nephrotoxic medications Strict ins and outs --History of renal cell transplant Initial in 1984 which lasted for 5 years, second transplant in 1990 On cyclosporine, prednisone 5 mg on a daily basis - Continue with Pike ENDO - -- ICU hypoglycemia protocol HEME - -- Pancytopenia Etiology is not known S/p bone marrow biopsy at [facility], she did get Neupogen at that time. Last treatment was January 2022 with ibrutinib Patient got 4 unit of PRBC and 2 platelet during this hospitalization ID - -- Gram-negative bacteremia along with gram-positive cocci in chains Follow-up sensitivity Continue with broad-spectrum antibiotics for the time being Typhlitis also possibility given the patient was pancytopenic --Prophylaxis VTE: IPC GI: Pantoprazole Lines: Right IJ, Pike Diet: N.p.o. Plan: Follow-up CMP, CBC, TSH, troponin EKG does not show any signs of ST elevation, there is T wave inversions appreciated in the lateral leads. Patient blood culture is growing gram-negative bacilli along with gram-positive in chains, given the severe pancytopenia we will give double gram-negative coverage. Chest x-ray shows new left lower lobe opacity, likely aspiration pneumonia. Possibility of PE is LABA low in differential., I will see if I am able to go down on the FiO2 gradually Try to avoid medication with prolonged QTC. We will avoid fentanyl. Give Dilaudid as needed along with propofol Case was discussed with family who was at bedside. They were made aware regarding patient's critical condition. I have personally spent 62 minutes of critical care time in the direct management of this patient. This is a life/limb threatening event. This includes time spent evaluating patient, direct bedside care, chart review, placing orders, interpretation of diagnostic studies, discussion with consultants, patient, and family members, as well as other required patient management activities. This time is exclusive of all separately billable procedures, and teaching time and separate from and in addition to any other critical care service time. History of Present Illness Attending Physician: Dayanara Tenorio MD History of Present Illness 51-year-old female presented to the hospital for generalized fatigue and weakness Past medical history: Marginal zone lymphoma, cold agglutinin anemia, aortic valve replacement, dual-chamber pacemaker, history of renal transplant, hyper tension, dyslipidemia Patient was on the floor when a CODE BLUE was called early in the morning. Patient was found to be in V. fib and was shocked x1. She got epi 2 g of magnesium and 1 of bicarb. ROSC was achieved. Patient blood pressure was difficult to get. He was she was started on Levophed. She was intubated in the room. At the time of examination patient was on propofol 30, Levophed 0.21, temperature of 39.1 She was moving all her extremities along with her head. She was not following any commands. Patient's family was at bedside. Saturation was 99% on PEEP of 10 FiO2 80%. I was able to gradually bring it down to 50% FiO2 while maintaining a saturation 92-93% Patient was recently at [facility]. She had bone marrow biopsy for persistent pancytopenia. She got 3 units of PRBC and 5 units of [place] [facility] [place] was obtained from previous notes as well as family Allergies Allergy/AdvReac Type Severity Reaction Status Date / Time hydralazine Allergy Severe Hives Verified 03/10/22 14:14 morphine Allergy Severe Hives Verified 03/10/22 14:14 nitroglycerin AdvReac Severe Migraine Verified 03/10/22 14:14 valacyclovir AdvReac Severe Vomiting Verified 03/10/22 14:14 Home Medications Medication Instructions Recorded Confirmed Type folic acid 1 mg tablet 1 mg PO QAM 03/13/18 03/14/22 History multivitamin 1 tab PO QAM 03/13/18 03/14/22 History montelukast 10 mg tablet 10 mg PO QAM 10/24/18 03/14/22 History buspirone 5 mg tablet 5 mg PO Q8 01/08/19 03/14/22 History cimetidine 400 mg tablet 400 mg PO AMHS 01/08/19 03/14/22 History pantoprazole 40 mg tablet,delayed 40 mg PO AMHS 01/08/19 03/14/22 History release (Protonix) rosuvastatin 5 mg tablet (Crestor) 5 mg PO HS 01/08/19 03/14/22 History tramadol 100 mg tablet,extended See Rx Instructions .Route .COMPLEX 03/09/19 03/14/22 History release 24 hr mirtazapine 45 mg tablet 45 mg PO HS 01/21/20 03/14/22 History polyethylene glycol 3350 17 gram 17 g PO DAILY 01/21/20 03/14/22 History oral powder packet (Miralax) amlodipine 2.5 mg tablet 2.5 mg PO QPM 06/15/20 03/14/22 History ibrutinib 280 mg tablet 280 mg PO .ON HOLD 06/15/20 03/14/22 History labetalol 300 mg tablet 300 mg PO Q8H 09/21/20 03/14/22 History sodium bicarbonate 650 mg tablet 1,300 mg PO AMHS 09/21/20 03/14/22 History ramelteon 8 mg tablet 8 mg PO HS 01/13/22 03/14/22 History L.acidoph-L.rhamn-B.bifidum-B.long 2 tab PO DAILY 01/27/22 03/14/22 History 12.9 mg (2 billion cell) DR jenaro (Probiotic Acidophilus Kaley) allopurinol 300 mg tablet 300 mg PO .ON HOLD 01/27/22 03/14/22 History amoxicillin 500 mg capsule 2,000 mg PO ONCE PRN 1 hr prior to 01/27/22 03/14/22 History dental procedure aspirin 81 mg chewable tablet 81 mg PO QAM 01/27/22 03/14/22 History (Aspirin Childrens) cyclosporine modified 50 mg capsule 50 mg PO .ON HOLD 01/27/22 03/14/22 History erenumab-aooe 70 mg/mL 70 mg subcut MONTHLY 01/27/22 03/14/22 History subcutaneous auto-injector (Aimovig Autoinjector) fexofenadine 180 mg tablet 180 mg PO DAILY 01/27/22 03/14/22 History ketotifen fumarate 0.025 % (0.035 1 drp ophthalmic (eye) BID PRN as 01/27/22 03/14/22 History %) eye drops direceted magnesium chloride 64 mg 64 mg PO QAM 01/27/22 03/14/22 History (magnesium chloride) tablet,delayed release memantine 5 mg tablet 5 mg PO BIDM 01/27/22 03/14/22 History metaxalone 800 mg tablet 800 mg PO Q8 01/27/22 03/14/22 History metoclopramide HCl 5 mg tablet 5 mg PO .ON HOLD PRN Nausea And 01/27/22 03/14/22 History Vomiting ondansetron HCl 4 mg tablet 4 mg PO .ON HOLD PRN Nausea 01/27/22 03/14/22 History oxycodone 5 mg tablet 5 mg PO Q6H 01/27/22 03/14/22 History triamcinolone acetonide 55 mcg 2 spray intranasal DAILY 01/27/22 03/14/22 History nasal spray aerosol zinc gluconate 50 mg tablet 100 mg PO DAILY 01/27/22 03/14/22 History zolpidem 10 mg tablet 10 mg PO HS 02/16/22 03/14/22 History ascorbic acid (vitamin C) 1,000 mg 1 g PO Q6 03/10/22 03/14/22 History tablet (Vitamin C) prednisone 5 mg tablet 5 mg PO QAM 03/14/22 03/14/22 History Patient History Medical History Acute pancreatitis Acute UTI Anxiety Aortic regurgitation "s/p bioprosthetic AVR" Autoimmune hemolytic anemia B-cell lymphoma diagnosed 03/2019--[facility] Carcinoma in situ removed in office Cervicalgia Chronic back pain Chronic hyponatremia Chronic kidney disease Stage 4; baseline creat low 2's as of Feb 2022 Chronic pancreatitis Dehydration Depression Dyslipidemia ESBL (extended spectrum beta-lactamase) producing bacteria infection Essential hypertension Gastroparesis GERD (gastroesophageal reflux disease) History of DVT (deep vein thrombosis) History of herpes zoster 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" History of pericarditis History of renal calculi Hypertension Hypertensive heart disease Leukopenia Macular degeneration Marginal zone lymphoma Migraine headache Nausea and vomiting after administration of anesthetic agent Neurofibromatosis Pancreatic cyst Pancytopenia Recurrent UTI Renal transplant recipient Ulcerative colitis UTI (urinary tract infection) Surgical History [place]iac pac[place] [facility] [place] H/O aortic valve replacement H/O prior ablation treatment percutaneous peripheral nerve / C5-C6 ablation History of biopsy renal History of cardiac cath 2016 prior to AVR--no stent History of chest tube placement History of colonoscopy History of cystoscopy History of esophagogastroduodenoscopy (EGD) History of lithotripsy History of renal transplant History of tonsillectomy and adenoidectomy History of tooth extraction History of wisdom tooth extraction Status post aortic valve replacement [place] [facility] [place]follows with Dr. Rizo Status post -donor kidney transplantation 12/1984--removed 01/1990 Status post living-donor kidney transplantation in 06/1990 Family History Grandmother (Maternal) Coronary heart disease Family history of diabetes mellitus Grandfather (Paternal) Coronary heart disease Mother Kidney donor Other No family history of adverse response to anesthesia No family history of kidney disease Social History Smoking Status: Never smoker Tobacco Type: Cigarettes Second Hand Exposure: No; Hx Alcohol Use: No Hx Substance Use: No Preferred Language: Welsh Communication Ability: Effective Hydrology Professor Required: No Beliefs That Will Affect Care: Caodaism Caodaism Beliefs: pt states she is tenriism marital status: Current Living Situation: Spouse Current Living Situation Comment: Feels Safe at Home: Yes Safety Concerns: Feels Safe At This Time Assistive Devices: None Review of Systems Review of Systems: Unobtainable due to endotracheal tube Physical Exam Physical Exam: Constitutional: No acute distress HEENT: PERRLA, + ETT Respiratory system: Decreased air entry bilaterally, no wheeze, no rhonchi, positive crackles bilateral lower lobe CVS: S1-S2 positive, no murmurs or gallops, left-sided pacemaker Abdomen: Soft, nontender, nondistended, positive bowel sounds x4 Extremities: +2 pulses bilaterally radialis/ dorsalis pedis, no cyanosis, no edema Neuro: Sedated, moving all extremities actively Psych: Unable to assess G/U: Positive Pike Skin: no rashes, warm and dry Lymphatic: no cervical or axillary lymphadenopathy Results & Data Results & [facility] ([facility] Vital Signs (Past 12 Hours) Vital Signs Temp Pulse Pulse Resp BP BP Pulse Ox 03/16/22 07:06 37.7 C H 109 H 18 106/71 93 03/16/22 03:11 37.1 C 62 16 99/65 L 92 03/15/22 22:00 64 03/15/22 23:17 37.7 C H 100 H 16 97/65 L 92 03/15/22 22:47 37.7 C H 118 H 16 97/65 L 93 03/15/22 22:32 37.1 C 63 16 91/61 L 93 03/15/22 22:15 37.3 C 67 18 105/68 96 O2 Del Method 03/16/22 07:06 Room Air 03/16/22 03:11 Room Air 03/15/22 22:00 03/15/22 23:17 03/15/22 22:47 03/15/22 22:32 03/15/22 22:15 Laboratory Results 03/16/22 06:52 03/16/22 06:52 Coding Level of Care Code Critical Care 1st 30-74 mins Diagnoses Pancytopenia D61.818 H/O aortic valve replacement Z95.2 Pneumonia J18.9 Febrile neutropenia D70.9; R50.81 DSEIREE (acute kidney injury) N17.9 Thrombocytopenia D69.6 Immunocompromised D89.9 Cardiac arrest I46.9 Time Spent (min) 62
[2022-03-16] MEDS: propofoL 1,000 MG/100 ML VIAL IV SCH ×3 (09:15→19:29)
[2022-03-16 09:16] LABS: Streptococcus spp DETECTED (NotDetected)
[2022-03-16 09:48] LABS: iSTAT Allen Test Pass; iSTAT Art Bld Gas pCO2 Correct 32 mmHg (35-46); iSTAT Art Bld Gas pH Corrected 7.543 (7.35-7.45); iSTAT Arterial Blood Gas HCO3 27 meg/L (19-24); iSTAT Arterial Blood Gas pCO2 29 mmHg (35-46); iSTAT Arterial Blood Gas pH 7.58 (7.35-7.45); iSTAT Arterial Blood Gas pO2 60 mmHg (80-95); iSTAT Arterial Blood Gas pO2 C 69; iSTAT Carbon Dioxide 28 mmol/L (24-31); iSTAT FiO2 100 %; iSTAT Hematocrit 27 % (37-47); iSTAT Hemoglobin 9.2 g/dl (12.0-16.0); iSTAT Potassium 3.4 mmol/L (3.3-5.0); iSTAT Site R Radial; iSTAT Sodium 136 mmol/L (135-144)
[2022-03-16 10:34] LABS: Hematocrit (blood only) 27.9 % (34.1-44.9); Mean Corpuscular Hemoglobin 29.4 pg (25.0-34.0); Mean Corpuscular Hgb Conc 35.8 g/dL (32.0-36.0); Mean Corpuscular Volume 82.1 fL (80.0-100.0); Platelet Count 25 K/uL (130-400); RDW Coefficient of Variation 13.9 % (11.5-14.5); RDW Standard Deviation 40.2 fL (36.4-46.3); White Blood Count 0.47 K/ul (4.8-10.8)
[2022-03-16] MEDS: PANTOprazole 40 MG TAB PO SCH (10:38)
[2022-03-16] MEDS: ASCORBIC ACID 500 MG TAB PO SCH (10:38)
[2022-03-16] MEDS: MAGNESIUM CHLORIDE W/CALCIUM 64MG DELAYED REL TAB PO SCH (10:38)
[2022-03-16] MEDS: CIMETIDINE 400 MG PO SCH (10:38)
[2022-03-16] MEDS: MULTIVITAMIN TAB PO SCH (10:38)
[2022-03-16] MEDS: FEXOFENADINE HCL 180 MG TAB PO SCH (10:38)
[2022-03-16] MEDS: MONTELUKAST SODIUM 10 MG TABLET PO SCH (10:38)
--- NOTE | 2022-03-16 10:39 | Procedure Note ---
Procedure Note Date of Service March 16, 2022 Note Procedure: Arterial Line Placement Attending: Dr. Reagan APC: Freddy Figueroa PA-C Indication: Hemodynamic monitoring Anesthesia: Lidocaine 1% Emergent Consent implied in the setting of clinical deterioration and need for close hemodynamic monitoring, ABG monitoring, frequent lab draws, etc. A time-out was completed verifying correct patient, procedure, site, positioning, and implant(s) or special equipment if applicable. Allens test was performed to ensure adequate perfusion. Patients RIGHT wrist was prepped and draped in the usual sterile fashion. Ultrasound guidance was used to aid needle placement. A 20g Arrow arterial line was introduced into the RIGHT Radial artery. Catheter was unable to be threaded. ABG sample was obtained. Procedure was aborted. The patient tolerated the procedure well. Blood Loss: Minimal Complications: None Procedural Ultrasound Guidance: Procedure Date: 03/16/2021 Indication: Hemodynamic Monitoring, Frequent ABGs/Lab draws. Attending: Dr. Reagan APC: Freddy Figueroa PA-C Artery Identified: YES Line confirmed in Artery with ultrasound: YES Complications: NONE Patient tolerated procedure: WELL Coding CPT Codes Tubes, Drains, and Vasc Access - Tubes, Drains, and Vasc Access: [id number] Place Catheter In Artery ([id number]) [facility] [place] Procedure Codes (Charges) Tubes, Drains, and Vasc Access Procedure 1: Tubes, Drains, and Vasc Access: [id number] Place Catheter In Artery
[2022-03-16] MEDS: METAXALONE 800 MG TABLET PO SCH (10:40)
--- NOTE | 2022-03-16 10:40 | Procedure Note ---
Procedure Note Date of Service March 16, 2022 Note Procedure: Internal Jugular Central Line Placement Attending: Dr. Reagan APC: Freddy Figueroa PA-C Indication: Central Drug Administration, Poor Venous Access, Multiple Lab Draws Necessary, etc. Anesthesia: Lidocaine 1% Emergent consent implied in the setting of hemodynamically unstable patient required multiple drips with only an IO site as peripheral access. A time-out was completed verifying correct patient, procedure, site, positi oning, and implants(s) or special equipment if applicable. Patients RIGHT Neck was cleansed and draped in the typical sterile fashion using Chloraprep. The Internal Jugular Vein and Carotid Artery were identified using ultrasound. The superficial tissue was anesthetized using 4.0 mL of 1% lidocaine without epinephrine under direct visualization with the ultrasound. After adequate anesthetization was achieved, the Internal Jugular vein was cannulated under direct ultrasound guidance using an introducer needle on a syringe. Good venous blood return was maintained prior to removal of syringe from introducer needle. Using Seldinger Technique, a guide wire was advanced through the introducer needle without resistance. The introducer needle was removed and ultrasound images were obtained of the guide wire within the Internal Jugular Vein and saved to the patients medical record. A small incision was made in penetrating fashion at the guide wire insertion site utilizing an 11 blade scalpel. The dilator was advanced to the vessel without resistance. The dilator was exchanged for the triple lumen catheter which was advanced into the vessel without resistance. The guide wire was removed intact from the catheter without issue. Claves were placed on each catheter tip with confirmation of good blood flow from each lumen. Each port was easily flushed with sterile saline. The catheter was placed at 12 cm and sut[address] in place. BioPatch was applied to the catheter and a sterile Tegaderm dressing was applied over the catheter with careful attention to sterility. Patient tolerated procedure well. No immediate complications were met. Post procedure x-ray was completed, placement was appropriate and no pneumothorax was noted. Images obtained are saved for permanent record Procedural Ultrasound Guidance: Procedure Date: 03/16/2022 Indication: Pressors, poor peripheral access, multiple medications, multiple lab draws Attending: Dr. Reagan APC: Freddy Figueroa PA-C Artery AND Vein visualized: YES Compressible Vein: YES Guidewire or Short Catheter seen in vein prior to dilation: YES Line confirmed in Vein with ultrasound: YES Images obtained are saved for permanent record. Coding CPT Codes Tubes, Drains, and Vasc Access - Tubes, Drains, and Vasc Access: [id number] Insertion Of Non-tunneled Catheter Age 6 Yrs> ([id number]) Tubes, Drains, and Vasc Access - Tubes, Drains, and Vasc Access: [id number] Ultrasonic Guide For Needle Placement ([id number]) [facility] [place] Codes (Charges) Tubes, Drains, and Vasc Access Procedure 1: Tubes, Drains, and Vasc Access: [id number] Insertion Of Non-tunneled Catheter Age 6 Yrs> Procedure 2: Tubes, Drains, and Vasc Access: [id number] Ultrasonic Guide For Needle Placement
--- NOTE | 2022-03-16 10:42 | XRay Report ---
SINGLE VIEW CHEST CLINICAL HISTORY: Intubation. FINDINGS: An AP, portable, upright chest radiograph is compared to study dated 03/14/2022. The patient is status post midline sternotomy and cardiac valve surgery. A 2-lead cardiac pacemaker is unchanged in position and partially obscures the left upper chest. A right internal jugular central venous cath eter has been placed. The tip projects over the junction of the innominate veins. The endotracheal tu be has been placed. The tip projects 4 cm above the mariela. A catheter coiled in the region of the ph arynx may represent an enteric tube. The heart is enlarged. There is pulmonary vascular congestion. T here are asymmetric bilateral airspace opacities, greatest in the left upper and left lower lobes. No large pleural effusion or pneumothorax is seen. The skeletal structures appear osteopenic. The bony thorax is grossly intact. IMPRESSION: 1. Line and tube placement as above. 2. A catheter coiled over the pharynx may represent an enteric tube. If so repositioning is indicated . 3. Cardiomegaly and cardiac pacemaker with evidence of congestive failure. 4. Asymmetric airspace opacities throughout the left lung could represent pulmonary edema and/or mult ifocal pneumonia. Clinical correlation will be required and radiographic follow-up to resolution is r ecommended. 5. No pneumothorax is seen. ACT 112: Negative or not required by law. Electronically signed by: Ray Goff M.D. 03/16/2022 10:39 AM
[2022-03-16] MEDS: POTASSIUM CHLORIDE / WTR 10 MEQ/100 ML PLCT IV SCH ×2 (10:44→11:37)
[2022-03-16] MEDS: PANTOprazole 40 MG in SYRINGE 0 ML IV SCH ×2 (10:44→19:55)
[2022-03-16] MEDS: ACETAMINOPHEN 1,000 MG/100 ML VIAL IV PRN (10:44)
[2022-03-16 10:45] LABS: Albumin Globulin Ratio 0.9 (0.9-2); Albumin Level 2.6 gm/dl (3.4-5.0); BUN Creatinine Ratio 22.5 (10-20); Calcium 8.7 mg/dl (8.5-10.1); Creatinine Clr Calc Pharmacy 30.7 ml/min; Est GFR (African American) 32.1 ml/min; Est GFR (Non-African American) 27.7 ml/min; Potassium 3.3 mmol/L (3.5-5.1); Total Protein 5.6 gm/dl (6.0-8.3)
[2022-03-16 10:56] LABS: Troponin I High Sensitivity 238.2 pg/ml (0-14)
[2022-03-16] MEDS: VASOPRESSIN 20 UNITS in 0.9 % SODIUM CHLORIDE 100 ML IV SCH ×2 (11:07→17:45)
[2022-03-16] MEDS ORDERED: metroNIDAZOLE 500 MG/100 ML BAG IV SCH (11:30)
--- NOTE | 2022-03-16 11:38 | Nephrology Progress Note ---
Date of Service March 16, 2022 Assessment & Plan (1) History of renal transplant: Plan: renal function remains better than baseline of low to mid 2s creatinine - though w/ gram negative septicemia, severe pancytopenia (improved some w/ transfusion), and now heart rhythm event unclear how long improvement will last -agree w/ K supplementation -continue prednisone -will hold bicarb supplements for now; not indicated -do not give cyclosporine d/t ongoing severe pancytopenia - this should not be resumed w/o d/w nephro -frequent lab checks per ICU team Admission and Anticipated Discharge Date Admission Date: March 14, 2022 Subjective pt had VT arrest this am and moved to ICU where she was intubated and started on pressors; T max last evening 39.1; E coli/enterobacter bacteremia Review of Systems Review of Systems: Unobtainable due to endotracheal tube Physical Exam Constitutional: well developed and well nourished ENMT: Ears: no external ear abnormality Nose: no external nose abnormality Mouth: + dry oral mucous membranes Neck: no nuchal rigidity Respiratory: normal respiratory effort (on vent) Auscultation: + diminished lung sounds and + rhonchi Cardiovascular: Rate/Rhythm: regular rate and regular rhythm Heart Sounds: + murmur Extremities: no edema Gastrointestinal (Abdomen): Inspection/Auscultation: normal bowel sounds Percussion/Palpation: abdomen soft; abdomen nontender Musculoskeletal: Extremities: + abnormal strength (sedated) Skin: no rashes, warm and dry Genitourinary: parra w/ ample light yellow urine [facility] Vital Signs (Past 12 Hours) Vital Signs Temp Pulse Pulse Resp BP Pulse Ox O2 Del Method 03/16/22 09:35 74 29 H 95 03/16/22 08:50 82 20 92 03/16/22 07:06 37.7 C H 109 H 18 106/71 93 Room Air 03/16/22 03:11 37.1 C 62 16 99/65 L 92 Room Air FiO2 03/16/22 09:35 100 03/16/22 08:50 100 03/16/22 07:06 03/16/22 03:11 Laboratory Results 03/16/22 10:02 03/16/22 10:02 cxs as above; UA w/ 4+ bacteria though minimal inflammation Diagnostic Findings cxr 1. Line and tube placement as above. 2. A catheter coiled over the pharynx may represent an enteric tube. If so repositioning is indicated. 3. Cardiomegaly and cardiac pacemaker with evidence of congestive failure. 4. Asymmetric airspace opacities throughout the left lung could represent pulmonary edema and/or multifocal pneumonia. Clinical correlation will be required and radiographic follow-up to resolution is recommended. 5. No pneumothorax is seen.
[2022-03-16] MEDS: TRIAMCINOLONE ACET NASAL SPRAY 10.8ML BTL SCH (11:51)
[2022-03-16] MEDS: SODIUM BICARBONATE 650 MG TAB PO SCH (11:51)
[2022-03-16] MEDS ORDERED: VANCOMYCIN CONSULT ACTIVE PRN ×2 (12:05→12:08)
[2022-03-16] MEDS ORDERED: VANCOMYCIN HCL 1,000 MG in SODIUM CHLORIDE 0.9% 250 ML IV STA (12:08)
[2022-03-16] MEDS: HYDROmorphone INJ 0.5 MG/0.5 ML SYR IV PRN ×2 (12:12→18:58)
[2022-03-16] MEDS: POTASSIUM CHLORIDE / WTR 20 MEQ/100 ML PLCT IV SCH ×2 (12:40→14:23)
[2022-03-16] MEDS ORDERED: XYLOCAINE 1%/SOD BICARB 20 ML VIAL INFIL ONE (12:45)
[2022-03-16] MEDS: predniSONE 5 MG TAB PO SCH (13:39)
[2022-03-16] MEDS: busPIRone 5 MG TAB PO SCH ×3 (13:39→19:52)
[2022-03-16] MEDS: MEMANTINE HCL 5 MG TAB PO SCH ×2 (13:39→16:55)
--- NOTE | 2022-03-16 13:49 | XRay Report ---
KUB HISTORY: Status post placement of an enteric tube OG tube placement COMPARISON: CT abdomen and pelvis 01/21/2020 FINDINGS: Cardiac silhouette is enlarged. Prior median sternotomy with cardiac valvular prosthesis. L eft subclavian pacer. Asymmetric left lung opacity again noted. Enteric tube distal tip projects over the mid gastric body. The mid to lower abdomen is excluded from the [id number]. Air-filled loops of large and small bowel are noted. Pneumatosis or pneumoperitoneum identified. IMPRESSION: 1. Distal tip of enteric tube projects over the stomach. 2. Asymmetric left lung opacities redemonstrated. Please refer to the chest CT of same day for additi onal details. ACT 112: Negative or not required by law. The above report was generated using voice recognition software. It may contain grammatical, syntax o r spelling errors. Electronically signed by: Everett Ritchie M.D. 03/16/2022 1:48 PM
[2022-03-16] MEDS ORDERED: NORMOSOL-R 500 ML IV ONE (13:56)
[2022-03-16] MEDS ORDERED: NORMOSOL-R 1,000 ML IV SCH (14:00)
--- NOTE | 2022-03-16 14:56 | Hospitalist Progress Note ---
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 Hold Cyclosporine given her severe pancytopenia Plan Severe pancytopenia -[place] [facility] [place]. Believed to be due to Covid 19 infection -Transfuse to keep Hb >7, Platelet above 10K. S/p 4 units pRBC and 2 unit platelet since admission -Discussed with Dr Hemphill of Oncology, recommend trial of Neupogen--> will order one dose now Polymicrobial Bacteremia -Initially on Cefepime (03/15) then broadened to Cefepime and Flagyl (03/16). ID consulted, recommend Daptomycin and Meropenem -TTE results noted, no vegetations seen -will repeat blood cultures to monitor for clearance -History of bioprosthetic aortic valve and PPM Vfib Arrest -TTE shows EF 25-30% with possible takotsubo cardiomyopathy vs multivessel ischemic cardiomyopathy -Cardiology consulted Septic Shock -Currently on Vasopressin and Levophed. Management per ICU History of renal transplant -continue Prednisone 5mg daily. Cyclosporine currently on hold. Management per Nephrology History of Lymphoma -last had chemotherapy Jan 2022. Sees Dr Clemons of [facility] Oncology DVT ppx SCD Admission and Anticipated Discharge Date Admission Date: March 14, 2022 Subjective Patient went into V tach then V fib arrest. Now intubated, sedated, on vasopressin and levophed. Currently in ICU Family is present at bedside Physical Exam Physical Exam: Acutely ill, sedated, vented currently Respiratory: Breath sounds present bilaterally, +coarse rhonchi Cardiovascular: Regular rate and rhythm currently, no murmurs/rubs/gallops Gastrointestinal (Abdomen): Hypoactive, soft Musculoskeletal: trace edema Neurologic: sedated but withdrawing to stimuli Results & Data Results & Data ([facility]) Vital Signs (Past 12 Hours) Vital Signs Temp Pulse Pulse Resp BP BP Pulse Ox 03/16/22 14:00 78 24 96 03/16/22 12:52 72 23 96 03/16/22 12:52 84/63 L 03/16/22 12:37 86/64 L 03/16/22 12:37 38.9 C H 75 20 96 03/16/22 12:22 95/52 L 03/16/22 12:22 38.9 C H 79 20 96 03/16/22 12:08 38.9 C H 79 29 H 97 03/16/22 12:08 100/67 03/16/22 12:00 38.9 C H 74 28 H 94 03/16/22 11:52 38.9 C H 78 25 H 95 03/16/22 11:52 92/63 L 03/16/22 11:37 98/67 L 03/16/22 11:37 38.9 C H 72 26 H 97 03/16/22 11:27 96/66 L 03/16/22 11:27 38.9 C H 78 24 96 03/16/22 11:22 94/66 L 03/16/22 11:22 38.9 C H 76 25 H 96 03/16/22 11:07 98/69 L 03/16/22 11:07 39.0 C H 73 25 H 95 03/16/22 11:04 95/57 L 03/16/22 11:04 39.0 C H 79 23 96 03/16/22 11:00 39.1 C H 76 32 H 96 03/16/22 10:54 82/53 L 03/16/22 10:54 39.1 C H 75 30 H 96 03/16/22 10:49 88/54 L 03/16/22 10:49 39.2 C H 75 20 98 03/16/22 10:37 67/53 L 03/16/22 10:37 39.3 C H 73 26 H 98 03/16/22 10:26 39.4 C H 70 28 H 97 03/16/22 10:26 99/45 L 03/16/22 10:22 89/43 L 03/16/22 10:22 39.4 C H 73 22 99 03/16/22 10:08 100/55 L 03/16/22 10:08 28 H 100 03/16/22 10:00 39.3 C H 71 26 H 96 03/16/22 11:44 03/16/22 10:30 03/16/22 11:00 03/16/22 09:35 74 29 H 95 03/16/22 08:50 82 20 92 03/16/22 07:06 37.7 C H 109 H 18 106/71 93 03/16/22 03:11 37.1 C 62 16 99/65 L 92 O2 Del Method FiO2 03/16/22 14:00 40 03/16/22 12:52 03/16/22 12:52 03/16/22 12:37 03/16/22 12:37 03/16/22 12:22 03/16/22 12:22 03/16/22 12:08 03/16/22 12:08 03/16/22 12:00 03/16/22 11:52 03/16/22 11:52 03/16/22 11:37 03/16/22 11:37 03/16/22 11:27 03/16/22 11:27 03/16/22 11:22 03/16/22 11:22 03/16/22 11:07 03/16/22 11:07 03/16/22 11:04 03/16/22 11:04 03/16/22 11:00 03/16/22 10:54 03/16/22 10:54 03/16/22 10:49 03/16/22 10:49 03/16/22 10:37 03/16/22 10:37 03/16/22 10:26 03/16/22 10:26 03/16/22 10:22 03/16/22 10:22 03/16/22 10:08 03/16/22 10:08 03/16/22 10:00 03/16/22 11:44 50 03/16/22 10:30 Mechanical Vent 50 03/16/22 11:00 50 03/16/22 09:35 100 03/16/22 08:50 100 03/16/22 07:06 Room Air 03/16/22 03:11 Room Air
[2022-03-16] MEDS ORDERED: DAPTOmycin 300 MG in SYRINGE 0 ML IV SCH (15:00)
[2022-03-16] MEDS ORDERED: AMIODARONE / D5W 360 MG/200 ML BAG IV ONE (15:06)
[2022-03-16] MEDS ORDERED: 0.2 MICRON FILTER SET 1 EACH IV ONE ×3 (15:06→20:26)
[2022-03-16] MEDS ORDERED: AMIODARONE 360MG / 200ML D5W IV ONE (15:14)
[2022-03-16] MEDS ORDERED: AMIODARONE 150MG / 100ML D5W IV ONE (15:17)
[2022-03-16] MEDS ORDERED: AMIODARONE / D5W 150 MG/100 ML BAG IV STA ×2 (15:19→16:40)
[2022-03-16] MEDS: MEROPENEM 500 MG in SYRINGE 0 ML IV SCH ×2 (15:20→22:55)
--- NOTE | 2022-03-16 15:22 | Communication Note ---
Date of Service: March 16, 2022 Critical CARE addendum: Patient's 2D echo showed EF of 25 to 30% with hypokinesis of the kidneys and multiple segments. Patient still requiring very high doses of Levophed as well as vasopressin. The likely etiology of patient's decreased ejection fraction could be stress- induced. Patient is still having runs of torsades. Potassium has been replaced. We will repeat BMP later today. Patient's QTC is prolonged at this she also has paced rhythm. The best option for the patient will be to have amiodarone. Patient was given 150 mg of amiodarone followed by another 150 mg of bolus and then drip. Patient's kidney function is deteriorating. No acute need for hemodialysis right now. Antibiotics were broadened by infectious disease to daptomycin and meropenem for at least 24-48 hours. Which is reasonable. I did speak with Dr. Washington regarding that Overall prognosis of the patient is very poor. I had another discussion with the family members at bedside making them aware of the current situation. Case was discussed with Dr. Fernando as well as Dr. Tenorio I have personally spent 37 minutes of critical care time in the direct managem ent of this patient. This is a life/limb threatening event. This includes time spent evaluating patient, direct bedside care, chart review, placing orders, interpretation of diagnostic studies, discussion with consultants, patient, and family members, as well as other required patient management activities. This time is exclusive of all separately billable procedures, and teaching time and separate from and in addition to any other critical care service time. Please note the above document was generated using voice recognition software. It may contain grammatical, syntax or spelling errors. Coding Level of Care Code Critical Care ea addt'l 30 min Time Spent (min) 37
[2022-03-16] MEDS ORDERED: FILGRASTIM 300 MCG/ML VIAL SC ONE (15:30)
[2022-03-16 17:11] LABS: Creatinine Clr Calc Pharmacy 26.8 ml/min; Est GFR (African American) 27.4 ml/min; Est GFR (Non-African American) 23.6 ml/min; Magnesium 3.4 mg/dl (1.7-2.4); Phosphorus 3.4 mg/dl (2.5-4.9); Potassium 4.2 mmol/L (3.5-5.1)
--- NOTE | 2022-03-16 17:24 | Cardiology Consultation ---
Date of Consultation March 16, 2022 Assessment & Plan (1) Cardiac arrest: (2) Torsades de pointes: (3) Cardiomyopathy: (4) S/P AVR (aortic valve replacement): (5) Sepsis due to Gram negative bacteria: (6) Sepsis, Gram positive: (7) Pancytopenia: (8) Immunosuppressed status: (9) Kidney transplant recipient: Plan 51-year-old female suffering cardiac arrest this a.m. status post CPR and defibrillation. Telemetry reveals recurrent episodes of torsades. She has lapsed into atrial fibrillation as well. Not a candidate for anticoagulation currently due to pancytopenia. Pacemaker reprogrammed to base rate of 100 bpm to prevent R-on-T phenomenon. The intravenous amiodarone will be continued in attempt to restore sinus rhythm and suppress PVCs. Hemodynamic support, ventilator management, and treatment of acute sepsis as per critical care. Poor prognosis. 50 minute critical care time. History of Present Illness Reason for Consultation: Cardiac arrest Requesting Physician: Dr. Reagan Attending Physician: Dayanara Tenorio MD History of Present Illness Complex 51-year-old female admitted to the hospital 03/14/2021 secondary to pancytopenia. Complex cardiovascular history includes complete heart block status post pacemaker implantation and aortic valve replacement. Patient suffered a cardiac arrest this morning receiving defibrillation x1 according to records. Successfully resuscitated and transferred to the ICU. Currently ventilated on pressor support. Telemetry reveals recurrent episodes of polymorphic ventricular tachycardia, torsades. Rhythm otherwise in and out of atrial fibrillation. Bedside 2D transthoracic echocardiogram demonstrates severe LV systolic function with findings likely consistent with stress-induced cardiomyopathy. Allergies Allergy/AdvReac Type Severity Reaction Status Date / Time hydralazine Allergy Severe Hives Verified 03/10/22 14:14 morphine Allergy Severe Hives Verified 03/10/22 14:14 nitroglycerin AdvReac Severe Migraine Verified 03/10/22 14:14 valacyclovir AdvReac Severe Vomiting Verified 03/10/22 14:14 Home Medications Medication Instructions Recorded Confirmed Type folic acid 1 mg tablet 1 mg PO QAM 03/13/18 03/14/22 History multivitamin 1 tab PO QAM 03/13/18 03/14/22 History montelukast 10 mg tablet 10 mg PO QAM 10/24/18 03/14/22 History buspirone 5 mg tablet 5 mg PO Q8 01/08/19 03/14/22 History cimetidine 400 mg tablet 400 mg PO AMHS 01/08/19 03/14/22 History pantoprazole 40 mg tablet,delayed 40 mg PO AMHS 01/08/19 03/14/22 History release (Protonix) rosuvastatin 5 mg tablet (Crestor) 5 mg PO HS 01/08/19 03/14/22 History tramadol 100 mg tablet,extended See Rx Instructions .Route .COMPLEX 03/09/19 03/14/22 History release 24 hr mirtazapine 45 mg tablet 45 mg PO HS 01/21/20 03/14/22 History polyethylene glycol 3350 17 gram 17 g PO DAILY 01/21/20 03/14/22 History oral powder packet (Miralax) amlodipine 2.5 mg tablet 2.5 mg PO QPM 06/15/20 03/14/22 History ibrutinib 280 mg tablet 280 mg PO .ON HOLD 06/15/20 03/14/22 History labetalol 300 mg tablet 300 mg PO Q8H 09/21/20 03/14/22 History sodium bicarbonate 650 mg tablet 1,300 mg PO AMHS 09/21/20 03/14/22 History ramelteon 8 mg tablet 8 mg PO HS 01/13/22 03/14/22 History L.acidoph-L.rhamn-B.bifidum-B.long 2 tab PO DAILY 01/27/22 03/14/22 History 12.9 mg (2 billion cell) tabletDR (Probiotic Acidophilus Kaley) allopurinol 300 mg tablet 300 mg PO .ON HOLD 01/27/22 03/14/22 History amoxicillin 500 mg capsule 2,000 mg PO ONCE PRN 1 hr prior to 01/27/22 03/14/22 History dental procedure aspirin 81 mg chewable tablet 81 mg PO QAM 01/27/22 03/14/22 History (Aspirin Childrens) cyclosporine modified 50 mg capsule 50 mg PO .ON HOLD 01/27/22 03/14/22 History erenumab-aooe 70 mg/mL 70 mg subcut MONTHLY 01/27/22 03/14/22 History subcutaneous auto-injector (Aimovig Autoinjector) fexofenadine 180 mg tablet 180 mg PO DAILY 01/27/22 03/14/22 History ketotifen fumarate 0.025 % (0.035 1 drp ophthalmic (eye) BID PRN as 01/27/22 03/14/22 History %) eye drops direceted magnesium chloride 64 mg 64 mg PO QAM 01/27/22 03/14/22 History (magnesium chloride) tablet,delayed release memantine 5 mg tablet 5 mg PO BIDM 01/27/22 03/14/22 History metaxalone 800 mg tablet 800 mg PO Q8 01/27/22 03/14/22 History metoclopramide HCl 5 mg tablet 5 mg PO .ON HOLD PRN Nausea And 01/27/22 03/14/22 History Vomiting ondansetron HCl 4 mg tablet 4 mg PO .ON HOLD PRN Nausea 01/27/22 03/14/22 History oxycodone 5 mg tablet 5 mg PO Q6H 01/27/22 03/14/22 History triamcinolone acetonide 55 mcg 2 spray intranasal DAILY 01/27/22 03/14/22 History nasal spray aerosol zinc gluconate 50 mg tablet 100 mg PO DAILY 01/27/22 03/14/22 History zolpidem 10 mg tablet 10 mg PO HS 02/16/22 03/14/22 History ascorbic acid (vitamin C) 1,000 mg 1 g PO Q6 03/10/22 03/14/22 History tablet (Vitamin C) prednisone 5 mg tablet 5 mg PO QAM 03/14/22 03/14/22 History Patient History Medical History Acute pancreatitis Acute UTI Anxiety Aortic regurgitation "s/p bioprosthetic AVR" Autoimmune hemolytic anemia B-cell lymphoma diagnosed 03/2019--chemo Carcinoma in situ removed in office Cervicalgia Chronic back pain Chronic hyponatremia Chronic kidney disease Stage 4; baseline creat low 2's as of Feb 2022 Chronic pancreatitis Dehydration Depression Dyslipidemia ESBL (extended spectrum beta-lactamase) producing bacteria infection Essential hypertension Gastroparesis GERD (gastroesophageal reflux disease) History of DVT (deep vein thrombosis) History of herpes zoster 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" History of pericarditis History of renal calculi Hypertension Hypertensive heart disease Leukopenia Macular degeneration Marginal zone lymphoma Migraine headache Nausea and vomiting after administration of anesthetic agent Neurofibromatosis Pancreatic cyst Pancytopenia Recurrent UTI Renal transplant recipient Ulcerative colitis UTI (urinary tract infection) Surgical [place] [facility] [place] H/O aortic valve replacement H/O prior ablation treatment percutaneous peripheral nerve / C5-C6 ablation History of biopsy renal History of cardiac cath 2017 prior to AVR--no stent History of chest tube placement History of colonoscopy History of cystoscopy History of esophagogastroduodenoscopy (EGD) History of lithotripsy History of renal transplant History of tonsillectomy and adenoidectomy History of tooth extraction History of wisdom tooth extraction Status post aortic valve [place]op[place] [facility] [place]follows with Dr. Rizo Status post -donor kidney transplantation 12/1984--removed 01/1990 Status post living-donor kidney transplantation in 06/1990 Family History Grandmother (Maternal) Coronary heart disease Family history of diabetes mellitus Grandfather (Paternal) Coronary heart disease Mother Kidney donor Other No family history of adverse response to anesthesia No family history of kidney disease Social History Smoking Status: Never smoker Tobacco Type: Cigarettes Second Hand Exposure: No; Hx Alcohol Use: No Hx Substance Use: No Preferred Language: Vietnamese Communication Ability: Effective Science Manager Required: No Beliefs That Will Affect Care: Zoroastrian Zoroastrian Beliefs: pt states she is alevism marital status: Current Living Situation: Spouse Current Living Situation Comment: Feels Safe at Home: Yes Safety Concerns: Feels Safe At This Time Assistive Devices: None Review of Systems Review of Systems: Unobtainable due to endotracheal tube Physical Exam Constitutional: well nourished and + ill appearing; no acute distress Respiratory: no respiratory distress and no labored breathing Auscultation: + rhonchi (Coarse breath sounds bilaterally); no rales and no wheezes Cardiovascular: Rate/Rhythm: regular rate and regular rhythm Heart Sounds: normal S1 and normal S2; no murmur Extremities: no edema Gastrointestinal (Abdomen): Inspection/Auscultation: abdomen normal to inspection; abdomen not distended Percussion/Palpation: abdomen soft; abdomen nontender, no guarding and abdomen not rigid Results & Data ([facility]) Vital Signs (Past 12 Hours) Vital Signs Temp Pulse Pulse Resp BP BP Pulse Ox 03/16/22 16:52 135/77 03/16/22 16:52 80 24 95 03/16/22 16:45 69 22 96 03/16/22 16:37 72 20 96 03/16/22 16:37 136/76 03/16/22 16:30 71 21 96 03/16/22 16:30 137/82 03/16/22 16:28 79 20 95 03/16/22 16:23 78 28 H 95 03/16/22 16:15 78 27 H 96 03/16/22 16:08 135/88 03/16/22 16:08 77 33 H 96 03/16/22 16:00 72 30 H 96 03/16/22 16:00 71 26 H 96 03/16/22 15:52 159/97 H 03/16/22 15:52 80 20 96 03/16/22 15:42 80 21 96 03/16/22 15:38 80 21 96 03/16/22 15:22 138/83 03/16/22 15:22 80 19 97 03/16/22 15:07 74 20 96 03/16/22 15:07 132/88 03/16/22 15:00 79 23 96 03/16/22 14:53 80 23 96 03/16/22 14:53 118/94 03/16/22 14:50 70 23 96 03/16/22 14:50 88/57 L 03/16/22 14:38 81/60 L 03/16/22 14:38 127 H 26 H 97 03/16/22 14:22 120/81 03/16/22 14:22 72 17 96 03/16/22 14:09 131/84 03/16/22 14:09 77 26 H 95 03/16/22 14:08 75 25 H 94 03/16/22 14:00 75 23 100 03/16/22 13:52 133/87 03/16/22 13:52 71 19 96 03/16/22 13:37 109/74 03/16/22 13:37 74 19 96 03/16/22 13:25 75 18 98 03/16/22 13:25 117/73 03/16/22 13:22 77 19 98 03/16/22 13:07 91/63 L 01/05/23 13:07 74 20 96 03/16/22 13:00 75 25 H 96 03/16/22 16:08 03/16/22 14:00 78 24 96 03/16/22 12:52 72 23 96 03/16/22 12:52 84/63 L 03/16/22 12:37 86/64 L 03/16/22 12:37 38.9 C H 75 20 96 03/16/22 12:22 95/52 L 03/16/22 12:22 38.9 C H 79 20 96 03/16/22 12:08 38.9 C H 79 29 H 97 03/16/22 12:08 100/67 03/16/22 12:00 38.9 C H 74 28 H 94 03/16/22 11:52 38.9 C H 78 25 H 95 03/16/22 11:52 92/63 L 03/16/22 11:37 98/67 L 03/16/22 11:37 38.9 C H 72 26 H 97 03/16/22 11:27 96/66 L 03/16/22 11:27 38.9 C H 78 24 96 03/16/22 11:22 94/66 L 03/16/22 11:22 38.9 C H 76 25 H 96 03/16/22 11:07 98/69 L 03/16/22 11:07 39.0 C H 73 25 H 95 03/16/22 11:04 95/57 L 03/16/22 11:04 39.0 C H 79 23 96 03/16/22 11:00 39.1 C H 76 32 H 96 03/16/22 10:54 82/53 L 03/16/22 10:54 39.1 C H 75 30 H 96 03/16/22 10:49 88/54 L 03/16/22 10:49 39.2 C H 75 20 98 03/16/22 10:37 67/53 L 03/16/22 10:37 39.3 C H 73 26 H 98 03/16/22 10:26 39.4 C H 70 28 H 97 03/16/22 10:26 99/45 L 03/16/22 10:22 89/43 L 03/16/22 10:22 39.4 C H 73 22 99 03/16/22 10:08 100/55 L 03/16/22 10:08 28 H 100 03/16/22 10:00 39.3 C H 71 26 H 96 03/16/22 11:44 03/16/22 10:30 03/16/22 11:00 03/16/22 09:35 74 29 H 95 03/16/22 08:50 82 20 92 03/16/22 07:06 37.7 C H 109 H 18 106/71 93 O2 Del Method FiO2 03/16/22 16:52 Mechanical Vent 03/16/22 16:52 03/16/22 16:45 03/16/22 16:37 03/16/22 16:37 03/16/22 16:30 03/16/22 16:30 03/16/22 16:28 03/16/22 16:23 03/16/22 16:15 03/16/22 16:08 03/16/22 16:08 03/16/22 16:00 40 03/16/22 16:00 03/16/22 15:52 03/16/22 15:52 03/16/22 15:42 03/16/22 15:38 03/16/22 15:22 03/16/22 15:22 03/16/22 15:07 03/16/22 15:07 03/16/22 15:00 03/16/22 14:53 03/16/22 14:53 03/16/22 14:50 03/16/22 14:50 03/16/22 14:38 03/16/22 14:38 03/16/22 14:22 03/16/22 14:22 03/16/22 14:09 03/16/22 14:09 03/16/22 14:08 03/16/22 14:00 03/16/22 13:52 03/16/22 13:52 03/16/22 13:37 03/16/22 13:37 03/16/22 13:25 03/16/22 13:25 03/16/22 13:22 03/16/22 13:07 03/16/22 13:07 03/16/22 13:00 03/16/22 16:08 40 03/16/22 14:00 40 03/16/22 12:52 03/16/22 12:52 03/16/22 12:37 03/16/22 12:37 03/16/22 12:22 03/16/22 12:22 03/16/22 12:08 03/16/22 12:08 03/16/22 12:00 03/16/22 11:52 03/16/22 11:52 03/16/22 11:37 03/16/22 11:37 03/16/22 11:27 03/16/22 11:27 03/16/22 11:22 03/16/22 11:22 03/16/22 11:07 03/16/22 11:07 03/16/22 11:04 03/16/22 11:04 03/16/22 11:00 03/16/22 10:54 03/16/22 10:54 03/16/22 10:49 03/16/22 10:49 03/16/22 10:37 03/16/22 10:37 03/16/22 10:26 03/16/22 10:26 03/16/22 10:22 03/16/22 10:22 03/16/22 10:08 03/16/22 10:08 03/16/22 10:00 03/16/22 11:44 50 03/16/22 10:30 Mechanical Vent 50 03/16/22 11:00 50 03/16/22 09:35 100 03/16/22 08:50 100 03/16/22 07:06 Room Air
[2022-03-16] MEDS: AMIODARONE / D5W 360 MG/200 ML BAG IV SCH (21:38)
[2022-03-16] MEDS: HYDROmorphone INJ 1 MG/ML SYRINGE IV PRN (21:42)
[2022-03-17] MEDS: ACETAMINOPHEN 1,000 MG/100 ML VIAL IV PRN ×3 (00:09→17:00)
[2022-03-17] MEDS: HYDROmorphone INJ 1 MG/ML SYRINGE IV PRN ×8 (00:10→23:17)
[2022-03-17] MEDS: Standard Conc 16mcg/mL; 4mg in 250mL IV SCH ×4 (00:52→23:36)
[2022-03-17] MEDS: VASOPRESSIN 20 UNITS in 0.9 % SODIUM CHLORIDE 100 ML IV SCH ×3 (02:00→20:29)
[2022-03-17] MEDS: propofoL 1,000 MG/100 ML VIAL IV SCH ×6 (02:00→21:22)
--- NOTE | 2022-03-17 05:19 | Electrocardiogram Report ---
Test Reason : Blood Pressure : / mmHG Vent. Rate : 093 BPM Atrial Rate : 115 BPM P-R Int : 158 ms QRS Dur : 140 ms QT Int : 382 ms P-R-T Axes : 153 -61 091 degrees QTc Int : 474 ms Poor data quality, interpretation may be adversely affected Possible Atrial fibrillation Left axis deviation Right bundle branch block Inferior infarct , age undetermined Anterolateral infarct , age undetermined Abnormal ECG When compared with ECG of 14-MAR-2022 14:13, Ventricular pacing is no longer present Confirmed by Almas May ([id number]) on 03/17/2022 5:18:45 AM Referred By: Stuart Ravi Confirmed By:Almas May
[2022-03-17 05:21] LABS: Albumin Globulin Ratio 0.9 (0.9-2); Albumin Level 2.5 gm/dl (3.4-5.0); BUN Creatinine Ratio 23.4 (10-20); Bilirubin,Total 0.7 mg/dl (0.2-1.0); Calcium 8.1 mg/dl (8.5-10.1); Creatinine Clr Calc Pharmacy 33.3 ml/min; Est GFR (African American) 35.5 ml/min; Est GFR (Non-African American) 30.6 ml/min; Globulin 2.8 gm/dl (2.5-4.0); Potassium 3.2 mmol/L (3.5-5.1); Total Protein 5.3 gm/dl (6.0-8.3)
--- NOTE | 2022-03-17 05:45 | Electrocardiogram Report ---
Test Reason : Blood Pressure : / mmHG Vent. Rate : 075 BPM Atrial Rate : 077 BPM P-R Int : 000 ms QRS Dur : 152 ms QT Int : 498 ms P-R-T Axes : 000 -52 082 degrees QTc Int : 556 ms Atrial fibrillation Left axis deviation Right bundle branch block Inferior infarct (cited on or before 16-MAR-2022) Anterior infarct (cited on or before 16-MAR-2022) Abnormal ECG When compared with ECG of 16-MAR-2022 09:02, No significant change Confirmed by Almas May ([id number] on 03/17/2022 5:45:19 AM Referred By: Stuart Ravi Confirmed By:Almas May
[2022-03-17 05:46] LABS: Hematocrit (blood only) 26.2 % (34.1-44.9); Hemoglobin 9.4 g/dl (12.0-16.0); Mean Corpuscular Hemoglobin 29.7 pg (25.0-34.0); Mean Corpuscular Hgb Conc 35.9 g/dL (32.0-36.0); Mean Corpuscular Volume 82.6 fL (80.0-100.0); Mean Platelet Volume 10.9 fL (9.4-12.3); Platelet Count 12 K/uL (130-400); RDW Standard Deviation 42.9 fL (36.4-46.3); Red Blood Count 3.17 M/uL (3.93-5.22); White Blood Count 0.47 K/ul (4.8-10.8)
[2022-03-17 05:47] LABS: Platelet Estimate Signific. Decreased (Normal)
[2022-03-17 07:52] LABS: Magnesium 2.9 mg/dl (1.7-2.4); Phosphorus 3.2 mg/dl (2.5-4.9)
[2022-03-17] MEDS: POTASSIUM CHLORIDE / WTR 20 MEQ/100 ML PLCT IV SCH ×2 (08:13→10:00)
[2022-03-17] MEDS: ICU ELECTROLYTE REPLACEMENT PROTOCOL SCH ×2 (08:14→16:43)
[2022-03-17] MEDS: MEROPENEM 500 MG in SYRINGE 0 ML IV SCH ×3 (08:14→23:17)
[2022-03-17] MEDS: PANTOprazole 40 MG in SYRINGE 0 ML IV SCH ×2 (08:14→20:27)
[2022-03-17] MEDS: predniSONE 5 MG TAB PO SCH (08:16)
[2022-03-17] MEDS: busPIRone 5 MG TAB PO SCH ×3 (08:16→20:27)
[2022-03-17] MEDS: AMIODARONE / D5W 360 MG/200 ML BAG IV SCH ×2 (08:17→19:20)
[2022-03-17] MEDS: MEMANTINE HCL 5 MG TAB PO SCH ×2 (08:17→16:43)
--- NOTE | 2022-03-17 11:04 | Cardiology Progress Note ---
Date of Service March 17, 2022 Assessment & Plan (1) Cardiac arrest: (2) Torsades de pointes: (3) Cardiomyopathy: (4) S/P AVR (aortic valve replacement): (5) Sepsis due to Gram negative bacteria: (6) Sepsis, Gram positive: (7) Pancytopenia: (8) Immunosuppressed status: (9) Kidney transplant recipient: Plan Continue pacemaker support with a base rate of 100 bpm to prevent recurrent torsades. Replete electrolytes as indicated. Maintain serum potassium greater than 4.0. Consider reducing pacemaker rate over the weekend pending clinical course. 2D transthoracic echocardiogram without evidence of vegetation, however, transesophageal echocardiogram may be considered if patient's clinical status improves during hospitalization. Hemodynamic support, ventilator management, and treatment of acute sepsis as per critical care. Poor prognosis. Admission and Anticipated Discharge Date Admission Date: March 14, 2022 Subjective Patient seen examined bedside. Remains on pressor support. Awake on ventilator. No recurrent torsades overnight. Telemetry reveals atrial fibrillation with a ventricular paced rhythm at 100 bpm. Review of Systems Review of Systems: All systems reviewed & are unremarkable except as noted in Subjective Physical Exam Constitutional: well nourished and + ill appearing; no acute distress Respiratory: no respiratory distress and no labored breathing Auscultation: + rhonchi (Coarse breath sounds bilaterally); no rales and no wheezes Cardiovascular: Rate/Rhythm: regular rate and regular rhythm Heart Sounds: normal S1 and normal S2; no murmur Extremities: no edema Gastrointestinal (Abdomen): Inspection/Auscultation: abdomen normal to inspection; abdomen not distended Percussion/Palpation: abdomen soft; abdomen nontender, no guarding and abdomen not rigid Results & Data ([facility]) Vital Signs (Past 12 Hours) Vital Signs Temp Pulse Resp BP Pulse Ox O2 Del Method FiO2 03/17/22 10:50 102 H 27 H 92 40 03/17/22 10:07 100/70 03/17/22 10:07 38.6 C H 102 H 22 91 03/17/22 10:00 38.7 C H 99 H 22 91 03/17/22 09:38 38.7 C H 102 H 28 H 92 03/17/22 09:38 99/72 L 03/17/22 09:30 38.6 C H 99 H 21 92 03/17/22 08:00 40 03/17/22 08:00 Mechanical Vent 40 03/17/22 09:38 38.7 C H 100 H 24 99/72 L 92 03/17/22 09:10 38.6 C H 105 H 19 95/70 L 91 03/17/22 08:40 38.6 C H 105 H 22 103/74 92 03/17/22 08:25 38.5 C H 98 H 19 102/77 93 03/17/22 08:01 38.6 C H 99 H 21 106/73 92 03/17/22 07:10 105 H 28 H 93 40 03/17/22 06:30 100 H 18 94 03/17/22 06:22 108/75 03/17/22 06:22 100 H 20 94 03/17/22 06:20 100 H 19 94 03/17/22 06:10 100 H 19 95 03/17/22 06:07 98 H 19 94 03/17/22 06:07 109/79 03/17/22 06:00 101 H 20 93 03/17/22 05:52 125/72 03/17/22 05:52 106 H 19 94 03/17/22 05:50 104 H 30 H 93 03/17/22 05:40 100 H 20 95 03/17/22 05:37 97 H 22 95 03/17/22 05:37 104/75 03/17/22 05:30 98 H 21 95 03/17/22 05:22 100 H 24 95 03/17/22 05:22 104/78 03/17/22 05:20 98 H 20 94 03/17/22 05:10 100 H 17 94 03/17/22 05:07 98 H 17 94 03/17/22 05:07 103/80 03/17/22 05:00 100 H 21 94 03/17/22 04:52 100 H 18 93 03/17/22 04:52 102/77 03/17/22 04:50 100 H 21 93 03/17/22 04:40 100 H 20 92 03/17/22 04:37 100 H 19 93 03/17/22 04:37 96/74 L 03/17/22 04:30 100 H 19 93 03/17/22 04:22 100 H 18 93 03/17/22 04:22 105/79 03/17/22 04:20 100 H 22 93 03/17/22 04:10 100 H 17 93 03/17/22 04:07 100 H 18 93 03/17/22 04:07 99/76 L 03/17/22 04:00 100 H 22 100 03/17/22 03:52 100 H 17 92 03/17/22 03:52 103/78 03/17/22 03:50 100 H 19 92 03/17/22 03:40 100 H 17 92 03/17/22 03:37 99/74 L 03/17/22 03:37 100 H 17 92 03/17/22 03:30 100 H 22 92 03/17/22 03:22 100 H 17 92 03/17/22 03:22 103/79 03/17/22 03:20 100 H 20 91 03/17/22 03:10 100 H 16 91 03/17/22 03:07 97/75 L 03/17/22 03:07 100 H 17 91 03/17/22 03:00 100 H 19 91 03/17/22 06:36 38.4 C H 03/17/22 04:38 37.8 C H 03/17/22 04:00 50 03/17/22 04:21 100 H 21 93 50 03/17/22 00:59 38.4 C H 03/17/22 00:57 50 03/17/22 00:00 40 03/17/22 00:26 100 H 03/16/22 23:52 38.4 C H 03/16/22 23:47 100 H 25 H 94 40 03/16/22 23:07 98/78 L 03/16/22 23:06 100 H 21 93
[2022-03-17] MEDS ORDERED: POTASSIUM CHLORIDE / WTR 20 MEQ/100 ML PLCT IV SCH (12:00)
--- NOTE | 2022-03-17 12:10 | Critical Care Progress Note ---
Date of Service March 17, 2022 Assessment & Plan (1) Pancytopenia: (2) H/O aortic valve replacement: (3) Pneumonia: (4) Febrile neutropenia: (5) DESIREE (acute kidney injury): (6) Thrombocytopenia: (7) Immunocompromised: (8) Cardiac arrest: Plan Reason Critically Ill: 51-year-old female past medical history of renal cell transplant, marginal cell,, pancytopenia was admitted to the hospital for anemia and generalized lethargy. Had a cardiac arrest with V. fib on 03/16/2022. In the ICU intubated for further care Neuro - [facility] ICU: Negative Avoid fentanyl given the prolonged QTC Continue with propofol and as needed Dilaudid Cardiac - -- Cardiac arrest Had episode of V. fib/torsade the point, was shocked times once Etiology could be underlying sepsis along with prolonged QTC Patient does have prolonged QTC of 480 when she came to the hospital Avoid QT prolonging medication Keep potassium greater than 4, magnesium greater than 2, phosphorus greater than 3 -- Prolonged QTC Avoid QT prolonging medications Respiratory - -- VDRF LABA protection s/p cardiac arrest Continue with ventilatory support Keep RASS -1 -- Multilobar pneumonia Likely aspiration pneumonia Continue with broad-spectrum rec GI - Continue with pantoprazole RENAL/LYTES - -- DESIREE on CKD Improving Likely from cardiac arrest and hypotensive episode Monitor BUN/creatinine Avoid nephrotoxic medications Strict ins and outs --History of renal cell transplant Initial in 1984 which lasted for 5 years, second transplant in 1990 On cyclosporine, prednisone 5 mg on a daily basis - Continue with Pike ENDO - -- ICU hypoglycemia protocol HEME - -- Pancytopenia Etiology is not known S/p bone marrow biopsy at [facility], she did get Neupogen at that time. Last treatment was January 2022 with ibrutinib Patient got 4 unit of PRBC and 3 platelet during this hospitalization ID - -- Gram-negative bacteremia along with gram-positive cocci in chains Follow-up sensitivity Continue with broad-spectrum antibiotics for the time being Typhlitis also possibility given the patient was pancytopenic -- Urine culture growing Pansensitive E. coli --Prophylaxis VTE: IPC GI: Pantoprazole Lines: Right IJ, Pike Diet: N.p.o. Plan: In/out: +2.4 L, urine output 1125 Patient was saturating 93-94% on PEEP of 8, 40%. Continue with Dapto and meropenem for the time being. Case was discussed with Dr. Barraza. We will try to get CT chest abdomen pelvis. Cardiology are continuing with paced rate at 100. Would continue with vent support given the patient is on high doses of vasopressors. Potassium being replaced, repeat BMP at 3 PM Case was discussed with family at bedside. I have personally spent 45 minutes of critical care time in the direct management of this patient. This is a life/limb threatening event. This includes time spent evaluating patient, direct bedside care, chart review, placing orders, interpretation of diagnostic studies, discussion with consultants, patient, and family members, as well as other required patient management activities. This time is exclusive of all separately billable procedures, and teaching time and separate from and in addition to any other critical care service time. Admission and Anticipated Discharge Date Admission Date: March 14, 2022 Subjective Patient seen and examined at bedside. No acute distress. Overnight patient did not have a significant events with torsades. Heart rate was in the low 100s at the time of examination Patient was on propofol 45, she had just got Dilaudid prior to me seeing her She was on Levophed 0.14, vasopressin 0.04 She was answering simple questions by nodding head. Did complain of mild chest pain. Still spiking fever. Review of Systems Review of Systems: All systems reviewed & are unremarkable except as noted in Subjective Physical Exam Physical Exam: Constitutional: No acute distress HEENT: PERRLA, + ETT Respiratory system: Decreased air entry bilaterally, no wheeze, no rhonchi, positive crackles bilateral lower lobe CVS: S1-S2 positive, no murmurs or gallops, left-sided pacemaker Abdomen: Soft, nontender, nondistended, positive bowel sounds x4 Extremities: +2 pulses bilaterally radialis/ dorsalis pedis, no cyanosis, no edema Neuro: Sedated, moving all extremities actively, following simple commands Psych: Unable to assess G/U: Positive Pike Skin: no rashes, warm and dry Lymphatic: no cervical or axillary lymphadenopathy Results & Data Results & Data ([facility]) Vital Signs (Past 12 Hours) Vital Signs Temp Pulse Resp BP Pulse Ox O2 Del Method FiO2 03/17/22 12:00 40 03/17/22 11:00 37.9 C H 100 H 21 94 03/17/22 10:55 38.5 C H 97 H 21 91 03/17/22 10:55 112/81 03/17/22 10:50 102 H 27 H 92 40 03/17/22 10:07 100/70 03/17/22 10:07 38.6 C H 102 H 22 91 03/17/22 10:00 38.7 C H 99 H 22 91 03/17/22 09:38 38.7 C H 102 H 28 H 92 03/17/22 09:38 99/72 L 03/17/22 09:30 38.6 C H 99 H 21 92 03/17/22 11:00 Mechanical Vent 40 03/17/22 08:00 40 03/17/22 08:00 Mechanical Vent 40 03/17/22 09:38 38.7 C H 100 H 24 99/72 L 92 03/17/22 09:10 38.6 C H 105 H 19 95/70 L 91 03/17/22 08:40 38.6 C H 105 H 22 103/74 92 03/17/22 08:25 38.5 C H 98 H 19 102/77 93 03/17/22 08:01 38.6 C H 99 H 21 106/73 92 03/17/22 07:10 105 H 28 H 93 40 03/17/22 06:30 100 H 18 94 03/17/22 06:22 108/75 03/17/22 06:22 100 H 20 94 03/17/22 06:20 100 H 19 94 03/17/22 06:10 100 H 19 95 03/17/22 06:07 98 H 19 94 03/17/22 06:07 109/79 03/17/22 06:00 101 H 20 93 03/17/22 05:52 125/72 03/17/22 05:52 106 H 19 94 03/17/22 05:50 104 H 30 H 93 03/17/22 05:40 100 H 20 95 03/17/22 05:37 97 H 22 95 03/17/22 05:37 104/75 03/17/22 05:30 98 H 21 95 03/17/22 05:22 100 H 24 95 03/17/22 05:22 104/78 03/17/22 05:20 98 H 20 94 03/17/22 05:10 100 H 17 94 03/17/22 05:07 98 H 17 94 03/17/22 05:07 103/80 03/17/22 05:00 100 H 21 94 03/17/22 04:52 100 H 18 93 03/17/22 04:52 102/77 03/17/22 04:50 100 H 21 93 03/17/22 04:40 100 H 20 92 03/17/22 04:37 100 H 19 93 03/17/22 04:37 96/74 L 03/17/22 04:30 100 H 19 93 03/17/22 04:22 100 H 18 93 03/17/22 04:22 105/79 03/17/22 04:20 100 H 22 93 03/17/22 04:10 100 H 17 93 03/17/22 04:07 100 H 18 93 03/17/22 04:07 99/76 L 03/17/22 04:00 100 H 22 100 03/17/22 03:52 100 H 17 92 03/17/22 03:52 103/78 03/17/22 03:50 100 H 19 92 03/17/22 03:40 100 H 17 92 03/17/22 03:37 99/74 L 03/17/22 03:37 100 H 17 92 03/17/22 03:30 100 H 22 92 03/17/22 03:22 100 H 17 92 03/17/22 03:22 103/79 03/17/22 03:20 100 H 20 91 03/17/22 03:10 100 H 16 91 03/17/22 03:07 97/75 L 03/17/22 03:07 100 H 17 91 03/17/22 03:00 100 H 19 91 03/17/22 06:36 38.4 C H 03/17/22 04:38 37.8 C H 03/17/22 04:00 50 03/17/22 04:21 100 H 21 93 50 03/17/22 00:59 38.4 C H 03/17/22 00:57 50 03/17/22 00:26 100 H Laboratory Results 03/17/22 04:26 03/17/22 04:26 Coding Level of Care Code Critical Care 1st 30-74 mins Diagnoses Pancytopenia D61.818 H/O aortic valve replacement Z95.2 Pneumonia J18.9 Febrile neutropenia D70.9; R50.81 DESIREE (acute kidney injury) N17.9 Thrombocytopenia D69.6 Immunocompromised D89.9 Cardiac arrest I46.9 Time Spent (min) 45
[2022-03-17 12:12] LABS: A calco-baum cmplx NotReported Not Detected (NotDetected); Bact fragilis Not Reported Not Detected (NotDetected); C auris Not Reported Not Detected (NotDetected); Calbicans Not Reported Not Detected (NotDetected); Candida glabrata Not Reported Not Detected (NotDetected); Candida krusei Not Reported Not Detected (NotDetected); Cneoformans/gatti Not Reported Not Detected (NotDetected); Cparapsilosis Not Reported Not Detected (NotDetected); Ctropicalis Not Reported Not Detected (NotDetected); E cloacae compx Not Reported Not Detected (NotDetected); Efaecalis Not Reported Not Detected (NotDetected); Efaecium Not Reported Not Detected (NotDetected); Enterobacterales Not Reported Not Detected (NotDetected); Escherichia coli Not Reported Not Detected (NotDetected); H influenzae Not Reported Not Detected (NotDetected); K aerogenes Not Reported Not Detected (NotDetected); Koxytoca Not Reported Not Detected (NotDetected); Kpneumoniae grp Not Reported Not Detected (NotDetected); Lmonocyt Not Reported Not Detected (NotDetected); N meningitidis Not Reported Not Detected (NotDetected); P aeruginosa Not Reported Not Detected (NotDetected); Proteus spp Not Reported Not Detected (NotDetected); Salmonella spp Not Reported Not Detected (NotDetected); Smarcescens Not Reported Not Detected (NotDetected); Staph lugdunensis Not Reported Not Detected (NotDetected); Staph spp. Not Reported Not Detected (NotDetected); Staphaureus Not Reported Not Detected (NotDetected); Staphepi Not Reported Not Detected (NotDetected); Stenmaltophilia Not Reported Not Detected (NotDetected); Strep agal(GrpB) Not Reported Not Detected (NotDetected); Strep pneum Not Reported Not Detected (NotDetected); Strep pyog (GrpA) Not Reported Not Detected (NotDetected); Strep spp Not Reported DETECTED (NotDetected); Streptococcus spp DETECTED (NotDetected)
--- NOTE | 2022-03-17 12:50 | CT Scan Report ---
CT OF THE ABDOMEN AND PELVIS WITH ORAL CONTRAST CLINICAL HISTORY: Bacteremia. Evaluate for source. COMPARISON STUDY: CT of the abdomen and pelvis January 21, 2020. MRI of the abdomen July 29, 2021. K UB March 16, 2022. FINDINGS: Please note that the chest CT will be reported separately. The chest CT will be porencephal y. Multifocal pneumonia, most pronounced within the lingula and left lower lobe is better depicted on that exam. Cardiomegaly with partially visualized pacer leads. Median sternotomy wires and aortic va lve are noted. No pneumatosis, free air or portal venous gas is present. Tip of nasogastric tube is w ithin the distal stomach. Evaluation of the abdomen and pelvis is suboptimal on this unenhanced exam. A 3.9 cm water attenuation right hepatic lobe lesion is unchanged. This represents a cyst. There is no biliary ductal dilatation. Mild gallbladder distention is noted. There may be minimal layering hyp erdense material within the gallbladder. There is no adjacent stranding. Innumerable cystic lesions w ithin the pancreas are suboptimally assessed on this unenhanced exam but appear similar. There are pa ncreatic parenchymal calcifications. There is no peripancreatic stranding. Marked atrophy of the kidn eys is noted. A water attenuation 3.9 cm left renal lesion is unchanged. This favors a cyst. Right lo wer quadrant renal allograft is noted. Water attenuation lesions within the allograft favor cysts alt harley are suboptimally assessed on this exam. There is mild allograft hydronephrosis with stranding w ithin the right renal sinus and perinephric soft tissues. This has slightly decreased since prior exa m. Pike balloon and gas within the bladder present. There is no evidence for a bowel obstruction. Tr victor m ascites within the pelvis is present. No fluid collection is identified to suggest an abscess. A 3.7 cm subcutaneous hyperdense focus within the left abdominal wall is noted with associated skin thi ckening. There is no associated fluid collection. There is no soft tissue gas. No acute fractures. No bowel obstruction. Wall thickening of the ascending colon and hepatic flexure is likely due to under distention. IMPRESSION: 1. Multifocal pneumonia better depicted on the chest CT. 2. Apparent wall thickening of the ascending colon and hepatic flexure. This is likely due to underdi stention. 3. Mild gallbladder distention however no adjacent infiltration. 4. Mild right lower quadrant renal allograft hydronephrosis with adjacent stranding. This has decreas ed when compared to prior CT although could be correlated with urinalysis. 5. No change in appearance of the pancreas with innumerable cystic lesions. Pancreatic parenchymal ca lcifications suggestive of chronic pancreatitis. 6. Subcutaneous stranding of the left abdominal wall with skin thickening. This favors a contusion. A n infectious process could appear similar but is considered less likely. No fluid collection. ACT 112: Negative or not required by law. Electronically signed by: Ariel Coburn M.D. 03/17/2022 12:49 PM
--- NOTE | 2022-03-17 13:35 | CT Scan Report ---
CT chest diagnostic wo con CT DOSE: 701.14 mGy.cm CLINICAL HISTORY: 51 years-old Female with Bacteremia, Eval for source. Acute bacteremia TECHNIQUE: Multiaxial CT images of the chest were performed without contrast. A dose lowering techni que was utilized adhering to the principles of ALARA. COMPARISON: CT abdomen and pelvis of same day, chest radiograph March 16, 2022 FINDINGS: Heterogeneity of the thyroid. Left subclavian pacer. Cardiomegaly without pericardial effus ion. Postoperative changes of the ascending thoracic aorta with prosthetic aortic valve. Ascending th oracic aortic ectasia, 3.9 cm. Dilation of the main pulmonary artery measures up to approximately 4 c m. Mediastinal lymph nodes measure up to approximately 10 mm, likely reactive. Trace left pleural effusion. Intralobular septal thickening with intermixed groundglass densities. Mi ld scattered airspace opacities throughout the right lung. Dense segmental consolidation is noted thr oughout the left lung. Air bronchograms. Endotracheal tube distal tip terminates 1.1 cm superior to t he mariela. Enteric tube courses into the stomach with distal tip outside the [id number]. Mild dist ention of the esophagus with intraluminal secretions. 3.9 cm cyst of the right hepatic lobe. Cystic lesions of the pancreas redemonstrated measuring up to 2.2 cm. No acute fracture or destructive bone lesion. IMPRESSION: 1. Extensive multifocal pneumonia, most pronounced within the left lung with trace left parapneumonic effusion. 2. Satisfactory positioning of the endotracheal and enteric tubes. 3. Cardiomegaly with possible superimposed pulmonary edema. 4. Additional findings as above. ACT 112: Negative or not required by law. Electronically signed by: Everett Ritchie M.D. 03/17/2022 1:33 PM
--- NOTE | 2022-03-17 15:09 | Nephrology Progress Note ---
Date of Service March 17, 2022 Assessment & Plan (1) History of renal transplant: Plan: renal function remains better than baseline of low to mid 2s creatinine - though significant lability in function past 24 hrs. w/ ? septicemia, severe pancytopenia (improved some in past w/ transfusion), and now heart rhythm event unclear how long she will stay at baseline -agree w/ K supplementation (had 60 mEQ IV today) -continue prednisone -will hold bicarb supplements for now; not indicated -do not give cyclosporine d/t ongoing severe pancytopenia - this should not be resumed w/o d/w nephro -frequent lab checks per ICU team Will follow peripherally; care d/w pt mother and Admission and Anticipated Discharge Date Admission Date: March 14, 2022 Subjective on 2 pressors and amio gtt now; awake enough to tell me she's having urinary urgency in writing; possible extubation later Review of Systems Review of Systems: Unobtainable due to endotracheal tube (limited by ETT) Physical Exam Constitutional: well developed, well nourished and + mechanically ventilated Eyes: EOM intact bilaterally ENMT: Ears: no external ear abnormality Nose: no external nose abnormality Mouth: + dry oral mucous membranes Neck: no nuchal rigidity Respiratory: normal respiratory effort (on vent) Auscultation: + diminished lung sounds Cardiovascular: Rate/Rhythm: regular rate, regular rhythm and + tachycardic Heart Sounds: + murmur Extremities: no edema Gastrointestinal (Abdomen): Inspection/Auscultation: normal bowel sounds Percussion/Palpation: abdomen soft; abdomen nontender Musculoskeletal: Extremities: strength 5/5 throughout and + abnormal strength (sedated) Skin: no rashes, warm and dry Neurologic: dunlap, no tremor Psychiatric: Orientation: oriented to person, oriented to place (when awake/ doses on and off) and cooperative Genitourinary: parra w/ ample light yellow urine Results & Data ([facility]) Vital Signs (Past 12 Hours) Vital Signs Temp Pulse Resp BP Pulse Ox O2 Del Method FiO2 03/17/22 14:09 37.5 C 100 H 17 97 03/17/22 14:09 118/85 03/17/22 14:00 37.4 C 100 H 14 97 03/17/22 13:55 37.5 C 100 H 16 97 03/17/22 13:55 118/81 03/17/22 13:00 37.7 C H 100 H 17 96 03/17/22 12:55 110/78 03/17/22 12:55 37.7 C H 100 H 19 96 03/17/22 12:00 37.8 C H 100 H 17 109/75 96 40 03/17/22 12:00 40 03/17/22 11:00 37.9 C H 100 H 21 94 03/17/22 10:55 38.5 C H 97 H 21 91 03/17/22 10:55 112/81 03/17/22 10:50 102 H 27 H 92 40 03/17/22 10:07 100/70 03/17/22 10:07 38.6 C H 102 H 22 91 03/17/22 10:00 38.7 C H 99 H 22 91 03/17/22 09:38 38.7 C H 102 H 28 H 92 03/17/22 09:38 99/72 L 03/17/22 09:30 38.6 C H 99 H 21 92 03/17/22 11:00 Mechanical Vent 40 03/17/22 08:00 40 03/17/22 08:00 Mechanical Vent 40 03/17/22 09:38 38.7 C H 100 H 24 99/72 L 92 03/17/22 09:10 38.6 C H 105 H 19 95/70 L 91 03/17/22 08:40 38.6 C H 105 H 22 103/74 92 03/17/22 08:25 38.5 C H 98 H 19 102/77 93 03/17/22 08:01 38.6 C H 99 H 21 106/73 92 03/17/22 07:10 105 H 28 H 93 40 03/17/22 06:30 100 H 18 94 03/17/22 06:22 108/75 03/17/22 06:22 100 H 20 94 03/17/22 06:20 100 H 19 94 03/17/22 06:10 100 H 19 95 03/17/22 06:07 98 H 19 94 03/17/22 06:07 109/79 03/17/22 06:00 101 H 20 93 03/17/22 05:52 125/72 03/17/22 05:52 106 H 19 94 03/17/22 05:50 104 H 30 H 93 03/17/22 05:40 100 H 20 95 03/17/22 05:37 97 H 22 95 03/17/22 05:37 104/75 03/17/22 05:30 98 H 21 95 03/17/22 05:22 100 H 24 95 03/17/22 05:22 104/78 03/17/22 05:20 98 H 20 94 03/17/22 05:10 100 H 17 94 03/17/22 05:07 98 H 17 94 03/17/22 05:07 103/80 03/17/22 05:00 100 H 21 94 03/17/22 04:52 100 H 18 93 03/17/22 04:52 102/77 03/17/22 04:50 100 H 21 93 03/17/22 04:40 100 H 20 92 03/17/22 04:37 100 H 19 93 03/17/22 04:37 96/74 L 03/17/22 04:30 100 H 19 93 03/17/22 04:22 100 H 18 93 03/17/22 04:22 105/79 03/17/22 04:20 100 H 22 93 03/17/22 04:10 100 H 17 93 03/17/22 04:07 100 H 18 93 03/17/22 04:07 99/76 L 03/17/22 04:00 100 H 22 100 03/17/22 03:52 100 H 17 92 03/17/22 03:52 103/78 03/17/22 03:50 100 H 19 92 03/17/22 03:40 100 H 17 92 03/17/22 03:37 99/74 L 03/17/22 03:37 100 H 17 92 03/17/22 03:30 100 H 22 92 03/17/22 03:22 100 H 17 92 03/17/22 03:22 103/79 03/17/22 03:20 100 H 20 91 03/17/22 03:10 100 H 16 91 03/17/22 06:36 38.4 C H 03/17/22 04:38 37.8 C H 03/17/22 04:00 50 03/17/22 04:21 100 H 21 93 50 Laboratory Results 03/17/22 04:26 03/17/22 04:26
[2022-03-17 16:33] LABS: BUN Creatinine Ratio 23.4 (10-20); Calcium 8.4 mg/dl (8.5-10.1); Creatinine Clr Calc Pharmacy 40.6 ml/min; Est GFR (African American) 45.1 ml/min; Est GFR (Non-African American) 38.9 ml/min; Magnesium 2.4 mg/dl (1.7-2.4); Potassium 4.6 mmol/L (3.5-5.1)
--- NOTE | 2022-03-17 17:05 | Hospitalist Progress Note ---
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 Hold Cyclosporine given her severe pancytopenia Plan Severe pancytopenia [place] [facility] [place] hyp[place]. Believed to be due to Covid 19 infection -Transfuse to keep Hb >7, Platelet above 10K. S/p 4 units pRBC and 2 unit platelet since admission -Discussed with Dr Hemphill of Oncology, recommend trial of Neupogen--> received 1 dose yesterday Polymicrobial Bacteremia -Initially on Cefepime (03/15) then broadened to Cefepime and Flagyl (03/16). ID consulted, recommend Daptomycin and Meropenem -TTE results noted, no vegetations seen -repeat blood cultures today -History of bioprosthetic aortic valve and PPM Vfib Arrest -TTE shows EF 25-30% with possible takotsubo cardiomyopathy vs multivessel ischemic cardiomyopathy -Cardiology consulted, appreciate input Septic Shock -Currently on Vasopressin and Levophed. Management per ICU History of renal transplant -continue Prednisone 5mg daily. Cyclosporine currently on hold. Management per Nephrology History of Lymphoma -last had chemotherapy Jan 2022. Sees Dr Clemons of [facility] DVT ppx SCD Admission and Anticipated Discharge Date Admission Date: March 14, 2022 Subjective Remains intubated, on levophed, vasopressin, amiodarone drip Physical Exam Physical Exam: acutely ill, intubated, sedated Respiratory: breath sounds present bilaterally, no wheezing Cardiovascular: tachycardic but regular, no murmurs/rubs Gastrointestinal (Abdomen): Hypoactive Skin: bruising on arms Neurologic: sedated Results & Data Results & Data ([facility]) Vital Signs (Past 12 Hours) Vital Signs Temp Pulse Resp BP Pulse Ox O2 Del Method FiO2 03/17/22 15:15 100 H 18 95 35 03/17/22 14:09 37.5 C 100 H 17 97 03/17/22 14:09 118/85 03/17/22 14:00 37.4 C 100 H 14 97 03/17/22 13:55 37.5 C 100 H 16 97 03/17/22 13:55 118/81 03/17/22 13:00 37.7 C H 100 H 17 96 03/17/22 12:55 110/78 03/17/22 12:55 37.7 C H 100 H 19 96 03/17/22 12:00 37.8 C H 100 H 17 109/75 96 40 03/17/22 12:00 40 03/17/22 11:00 37.9 C H 100 H 21 94 03/17/22 10:55 38.5 C H 97 H 21 91 03/17/22 10:55 112/81 03/17/22 10:50 102 H 27 H 92 40 03/17/22 10:07 100/70 03/17/22 10:07 38.6 C H 102 H 22 91 03/17/22 10:00 38.7 C H 99 H 22 91 03/17/22 09:38 38.7 C H 102 H 28 H 92 03/17/22 09:38 99/72 L 03/17/22 09:30 38.6 C H 99 H 21 92 03/17/22 11:00 Mechanical Vent 40 03/17/22 08:00 40 03/17/22 08:00 Mechanical Vent 40 03/17/22 09:38 38.7 C H 100 H 24 99/72 L 92 03/17/22 09:10 38.6 C H 105 H 19 95/70 L 91 03/17/22 08:40 38.6 C H 105 H 22 103/74 92 03/17/22 08:25 38.5 C H 98 H 19 102/77 93 03/17/22 08:01 38.6 C H 99 H 21 106/73 92 03/17/22 07:10 105 H 28 H 93 40 03/17/22 06:30 100 H 18 94 03/17/22 06:22 108/75 03/17/22 06:22 100 H 20 94 03/17/22 06:20 100 H 19 94 03/17/22 06:10 100 H 19 95 03/17/22 06:07 98 H 19 94 03/17/22 06:07 109/79 03/17/22 06:00 101 H 20 93 03/17/22 05:52 125/72 03/17/22 05:52 106 H 19 94 03/17/22 05:50 104 H 30 H 93 03/17/22 05:40 100 H 20 95 03/17/22 05:37 97 H 22 95 03/17/22 05:37 104/75 03/17/22 05:30 98 H 21 95 03/17/22 05:22 100 H 24 95 03/17/22 05:22 104/78 03/17/22 05:20 98 H 20 94 03/17/22 05:10 100 H 17 94 03/17/22 05:07 98 H 17 94 03/17/22 05:07 103/80 03/17/22 06:36 38.4 C H
[2022-03-17] MEDS ORDERED: ICU ELECTROLYTE REPLACEMENT PROTOCOL SCH (18:00)
[2022-03-18] MEDS: propofoL 1,000 MG/100 ML VIAL IV SCH ×6 (00:57→09:15)
[2022-03-18] MEDS: ACETAMINOPHEN 1,000 MG/100 ML VIAL IV PRN ×3 (01:26→18:10)
[2022-03-18] MEDS: HYDROmorphone INJ 1 MG/ML SYRINGE IV PRN ×6 (02:10→20:23)
[2022-03-18] MEDS: VASOPRESSIN 20 UNITS in 0.9 % SODIUM CHLORIDE 100 ML IV SCH ×3 (05:05→21:15)
[2022-03-18 06:12] LABS: BUN Creatinine Ratio 25.4 (10-20); Calcium 8.3 mg/dl (8.5-10.1); Est GFR (African American) 49.8 ml/min; Phosphorus 3.8 mg/dl (2.5-4.9); Potassium 3.6 mmol/L (3.5-5.1)
[2022-03-18] MEDS: MEROPENEM 500 MG in SYRINGE 0 ML IV SCH (06:12)
[2022-03-18 06:24] LABS: Hematocrit (blood only) 26.3 % (34.1-44.9); Hemoglobin 9.1 g/dl (12.0-16.0); Mean Corpuscular Hemoglobin 29.2 pg (25.0-34.0); Mean Corpuscular Hgb Conc 34.6 g/dL (32.0-36.0); Mean Corpuscular Volume 84.3 fL (80.0-100.0); Mean Platelet Volume 11.9 fL (9.4-12.3); Platelet Count 10 K/uL (130-400); RDW Standard Deviation 43.7 fL (36.4-46.3); Red Blood Count 3.12 M/uL (3.93-5.22); White Blood Count 0.45 K/ul (4.8-10.8)
[2022-03-18] MEDS: ICU ELECTROLYTE REPLACEMENT PROTOCOL SCH ×2 (07:11→18:45)
[2022-03-18] MEDS: AMIODARONE / D5W 360 MG/200 ML BAG IV SCH ×2 (07:14→19:24)
[2022-03-18] MEDS ORDERED: POTASSIUM CHLORIDE / WTR 20 MEQ/100 ML PLCT IV STA (07:46)
[2022-03-18] MEDS: POTASSIUM CHLORIDE 20 MEQ/15 ML UDC NG SCH ×2 (07:57→08:21)
--- NOTE | 2022-03-18 08:00 | Critical Care Progress Note ---
Date of Service March 18, 2022 Assessment & Plan (1) Pancytopenia: (2) H/O aortic valve replacement: (3) Pneumonia: (4) Febrile neutropenia: (5) DESIREE (acute kidney injury): (6) Thrombocytopenia: (7) Immunocompromised: (8) Cardiac arrest: Plan Reason Critically Ill: 51-year-old female past medical history of renal cell transplant, marginal cell,, pancytopenia was admitted to the hospital for anemia and generalized lethargy. Had a cardiac arrest with V. fib on 03/16/2022. In the ICU intubated for further care Neuro - [facility] ICU: Negative Avoid fentanyl given the prolonged QTC Continue with propofol and as needed Dilaudid Cardiac - -- Cardiac arrest Had episode of V. fib/torsade the point, was shocked times once Etiology could be underlying sepsis along with prolonged QTC Patient does have prolonged QTC of 480 when she came to the hospital Keep potassium greater than 4, magnesium greater than 2, phosphorus greater than 3 Continue with amiodarone drip -- Prolonged QTC Avoid QT prolonging medications Respiratory - -- VDRF Airway protection s/p cardiac arrest Continue with ventilatory support Keep RASS -1 -- Multilobar pneumonia Likely aspiration pneumonia Continue with broad-spectrum rec GI - Continue with pantoprazole RENAL/LYTES - -- DESIREE on CKD Improving Likely from cardiac arrest and hypotensive episode Monitor BUN/creatinine Avoid nephrotoxic medications Strict ins and outs --History of renal cell transplant Initial in 1984 which lasted for 5 years, second transplant in 1990 On cyclosporine, prednisone 5 mg on a daily basis - Continue with Pike ENDO - -- ICU hypoglycemia protocol HEME - -- Pancytopenia Etiology is not known S/p bone marrow biopsy at [place], she did get Neupogen at that time. Last treatment was January 2022 with ibrutinib Patient got 4 unit of PRBC and 4 platelet during this hospitalization ID - -- Gram-negative bacteremia along with gram-positive cocci in chains Pansensitive E. coli, Slightly seems to be from UTI Daptomycin discontinued 03/17/2022 Meropenem de-escalated 03/18/2022 Repeat blood cultures on 03/17/2022 negative to date -- Urine culture growing Pansensitive E. coli --Prophylaxis VTE: IPC GI: Pantoprazole Lines: Right IJ, Pike Diet: N.p.o. Plan: In/out: +1.5 L, urine output 2074 Patient tolerating pressure support well. Trial of extubation today. Hypokalemia being replaced. We will de-escalate meropenem to cefepime later today and add flagyl Continue with amiodarone drip Give another unit of SDP today. H&H is stable Repeat BMP later today Case was discussed with family at bedside. I have personally spent 40 minutes of critical care time in the direct management of this patient. This is a life/limb threatening event. This includes time spent evaluating patient, direct bedside care, chart review, placing orders, interpretation of diagnostic studies, discussion with consultants, patient, and family members, as well as other required patient management activities. This time is exclusive of all separately billable procedures, and teaching time and separate from and in addition to any other critical care service time. Admission and Anticipated Discharge Date Admission Date: March 14, 2022 Subjective Patient seen and examined at bedside. No acute distress, no adverse events overnight. Patient was on 0.06 of Levophed at the time of examination with MAP being in the low 70s. Propofol was turned off as she was on pressure support 5/5 getting good tidal volumes. Complained of mild headache. Denies any chest pain, no abdominal pain. Was asking to get the ET tube out Review of Systems Review of Systems: All systems reviewed & are unremarkable except as noted in Subjective Physical Exam Physical Exam: Constitutional: No acute distress HEENT: PERRLA, + ETT Respiratory system: Decreased air entry bilaterally, no wheeze, no rhonchi, positive crackles bilateral lower lobe CVS: S1-S2 positive, no murmurs or gallops, left-sided pacemaker Abdomen: Soft, nontender, nondistended, positive bowel sounds x4 Extremities: +2 pulses bilaterally radialis/ dorsalis pedis, no cyanosis, no edema Neuro: Awake alert, following commands Psych: Normal mood and affect G/U: Positive Pike Skin: no rashes, warm and dry Lymphatic: no cervical or axillary lymphadenopathy Results & Data Results & Data ([facility]) Vital Signs (Past 12 Hours) Vital Signs Temp Pulse Resp BP Pulse Ox O2 Del Method FiO2 03/18/22 07:45 104 H 26 H 95 35 03/18/22 07:00 37.7 C H 100 H 19 96 03/18/22 06:25 37.6 C H 100 H 16 95 03/18/22 06:25 103/70 03/18/22 06:00 37.6 C H 100 H 18 95 03/18/22 07:11 100 H 03/18/22 04:25 37.6 C H 100 H 15 95 Mechanical Vent 35 03/18/22 04:25 99/67 L 03/18/22 04:14 107/68 03/18/22 04:14 37.7 C H 100 H 18 03/18/22 04:00 38.0 C H 100 H 21 96 Mechanical Vent 35 03/18/22 03:55 38.0 C H 100 H 17 95 03/18/22 03:55 91/65 L 03/18/22 03:00 38.6 C H 100 H 17 94 Mechanical Vent 35 03/18/22 02:55 38.7 C H 100 H 17 94 03/18/22 02:55 95/63 L 03/18/22 02:00 38.9 C H 108 H 24 94 Mechanical Vent 35 03/18/22 01:55 38.9 C H 105 H 22 93 03/18/22 01:55 110/65 03/18/22 04:00 35 03/18/22 03:33 100 H 18 95 35 03/18/22 01:00 38.7 C H 100 H 20 109/70 93 Mechanical Vent 35 03/18/22 00:55 38.7 C H 103 H 20 94 03/18/22 00:00 38.5 C H 100 H 16 95 Mechanical Vent 35 03/17/22 23:55 38.5 C H 100 H 18 101/68 95 03/17/22 23:00 38.1 C H 100 H 16 95 Mechanical Vent 35 03/17/22 22:55 38.1 C H 100 H 17 111/75 95 03/17/22 22:00 37.7 C H 99 H 14 96 03/17/22 21:55 37.7 C H 100 H 16 100/70 96 Mechanical Vent 35 03/17/22 21:16 37.6 C H 100 H 15 97/71 L 96 Mechanical Vent 35 03/17/22 21:00 37.6 C H 100 H 16 96 Mechanical Vent 35 03/17/22 20:55 37.7 C H 100 H 16 92/67 L 96 03/17/22 20:39 96/65 L 01/06/23 20:39 37.7 C H 98 H 13 95 03/18/22 00:00 35 03/18/22 00:00 101 H 03/17/22 23:25 100 H 21 95 35 Laboratory Results 03/18/22 05:00 03/18/22 05:00 Coding Level of Care Code Critical Care 1st 30-74 mins Diagnoses Pancytopenia D61.818 H/O aortic valve replacement Z95.2 Pneumonia J18.9 Febrile neutropenia D70.9; R50.81 DESIREE (acute kidney injury) N17.9 Thrombocytopenia D69.6 Immunocompromised D89.9 Cardiac arrest I46.9 Time Spent (min) 40
[2022-03-18 08:05] LABS: Fibrinogen > 860 mg/dl (184-400); INR 1.4 (0.9-1.1); Partial Thromboplastin Ratio 1.5; Partial Thromboplastin Time 41.4 Seconds (21.0-31.0); Prothrombin Time 14.9 Seconds (9.0-12.0)
[2022-03-18] MEDS: MEMANTINE HCL 5 MG TAB PO SCH ×2 (08:24→18:10)
[2022-03-18] MEDS: busPIRone 5 MG TAB PO SCH ×3 (08:24→21:14)
[2022-03-18] MEDS: predniSONE 5 MG TAB PO SCH (08:25)
[2022-03-18] MEDS: PANTOprazole 40 MG in SYRINGE 0 ML IV SCH ×2 (08:26→21:14)
[2022-03-18] MEDS: metroNIDAZOLE 500 MG/100 ML BAG IV SCH ×2 (09:50→18:49)
[2022-03-18] MEDS: CEFEPIME 2,000 MG in SYRINGE 0 ML IV SCH ×2 (09:50→21:14)
[2022-03-18] MEDS ORDERED: cefTRIAXone SODIUM 2,000 MG in DEXTROSE 5% 50 ML IV SCH (10:00)
[2022-03-18] MEDS ORDERED: POTASSIUM CHLORIDE / WTR 20 MEQ/100 ML PLCT IV SCH (10:15)
[2022-03-18 15:22] LABS: BUN Creatinine Ratio 26.5 (10-20); Calcium 8.5 mg/dl (8.5-10.1); Creatinine Clr Calc Pharmacy 47.7 ml/min; Est GFR (African American) 54.4 ml/min; Est GFR (Non-African American) 46.9 ml/min; Potassium 4.2 mmol/L (3.5-5.1)
--- NOTE | 2022-03-18 15:43 | Cardiology Progress Note ---
Date of Service March 18, 2022 Assessment & Plan (1) Cardiac arrest: (2) Torsades de pointes: (3) Cardiomyopathy: (4) S/P AVR (aortic valve replacement): (5) Sepsis due to Gram negative bacteria: (6) Sepsis, Gram positive: (7) Pancytopenia: (8) Immunosuppressed status: (9) Kidney transplant recipient: Plan Continue pacemaker support with a base rate of 100 bpm to prevent recurrent torsades. Replete electrolytes as indicated. Maintain serum potassium greater than 4.0. Consider reducing pacemaker rate over the weekend pending clinical course. 2D transthoracic echocardiogram without evidence of vegetation, however, transesophageal echocardiogram may be considered if patient's clinical status improves during hospitalization versus possible 6-week course of antibiotics given the patient's severe bacteremia and history of AVR Hemodynamic support, ventilator management, and treatment of acute sepsis as per critical care. Poor prognosis. Admission and Anticipated Discharge Date Admission Date: March 14, 2022 Subjective Patient seen and examined. Chart reviewed. Telemetry reviewed. Physical Exam Physical Exam: General: Awake but intubated no acute distress. HEENT: Normocephalic, atraumatic. Pupils equal, round and reactive to light and accommodation. Extraocular muscles are intact. Anicteric sclera. Moist mucous membranes. Neck: No JVD. No bruit. Cardiovascular: Regular. Positive S-4. Normal S-1 and S-2. No S-3. No m urmurs or rubs. Pulmonary: Clear to auscultation B/L. No rales, rhonchi or wheezing Abdomen: Bowel sounds x 4, soft. No rebound, guarding or tenderness. No organomegaly. Extremities: No clubbing, cyanosis or edema. +2 pedal pulses bilaterally. Skin: Warm and dry. Results & Data ([facility]) Vital Signs (Past 12 Hours) Vital Signs Temp Pulse Resp BP Pulse Ox O2 Del Method O2 Flow Rate 03/18/22 13:00 37.4 C 100 H 17 96 03/18/22 12:53 37.4 C 109 H 18 95 03/18/22 12:53 99/78 L 03/18/22 12:00 37.6 C H 100 H 24 96 03/18/22 11:53 104/70 03/18/22 11:53 37.7 C H 100 H 27 H 95 Nasal Cannula 4 03/18/22 11:00 38.1 C H 101 H 19 92 03/18/22 10:53 92/69 L 03/18/22 10:53 38.1 C H 100 H 23 96 03/18/22 10:38 38.2 C H 101 H 18 95 03/18/22 10:38 97/69 L 03/18/22 10:23 38.2 C H 102 H 22 95 03/18/22 10:23 105/73 03/18/22 10:08 38.2 C H 105 H 15 95 03/18/22 10:08 94/71 L 03/18/22 10:00 38.2 C H 105 H 19 95 03/18/22 09:53 38.2 C H 106 H 20 96 03/18/22 09:53 112/70 03/18/22 09:38 102/70 03/18/22 09:38 38.2 C H 104 H 18 95 03/18/22 09:23 38.2 C H 100 H 20 97 03/18/22 09:23 102/79 03/18/22 09:00 Oxymask 6 03/18/22 09:08 93/68 L 03/18/22 09:08 38.2 C H 104 H 23 96 03/18/22 09:00 38.2 C H 103 H 24 97 03/18/22 08:53 38.2 C H 109 H 23 92 03/18/22 08:53 110/71 03/18/22 08:45 38.2 C H 109 H 13 97 03/18/22 08:38 38.2 C H 109 H 21 96 03/18/22 08:38 111/73 03/18/22 08:30 38.1 C H 106 H 22 97 03/18/22 08:23 104/83 03/18/22 08:23 38.0 C H 100 H 16 97 03/18/22 08:45 108 H 28 H 97 03/18/22 08:15 38.0 C H 100 H 20 96 03/18/22 08:10 38.0 C H 100 H 20 97 03/18/22 08:10 104/75 03/18/22 08:00 37.9 C H 103 H 24 96 03/18/22 07:45 37.4 C 29 H 98 03/18/22 07:30 37.8 C H 100 H 19 95 03/18/22 07:25 37.8 C H 95 H 19 96 03/18/22 07:25 93/69 L 03/18/22 07:15 37.7 C H 100 H 19 96 03/18/22 08:00 37.9 C H 100 H 20 96/69 L 100 03/18/22 07:45 104 H 26 H 95 03/18/22 07:00 37.7 C H 100 H 19 96 03/18/22 06:25 37.6 C H 100 H 16 95 03/18/22 06:25 103/70 03/18/22 06:00 37.6 C H 100 H 18 95 03/18/22 07:11 100 H 03/18/22 04:25 37.6 C H 100 H 15 95 Mechanical Vent 03/18/22 04:25 99/67 L 03/18/22 04:14 107/68 03/18/22 04:14 37.7 C H 100 H 18 03/18/22 04:00 38.0 C H 100 H 21 96 Mechanical Vent 03/18/22 03:55 38.0 C H 100 H 17 95 03/18/22 03:55 91/65 L 03/18/22 04:00 FiO2 03/18/22 13:00 03/18/22 12:53 03/18/22 12:53 03/18/22 12:00 03/18/22 11:53 03/18/22 11:53 03/18/22 11:00 03/18/22 10:53 03/18/22 10:53 03/18/22 10:38 03/18/22 10:38 03/18/22 10:23 03/18/22 10:23 03/18/22 10:08 03/18/22 10:08 03/18/22 10:00 03/18/22 09:53 03/18/22 09:53 03/18/22 09:38 03/18/22 09:38 03/18/22 09:23 03/18/22 09:23 03/18/22 09:00 03/18/22 09:08 03/18/22 09:08 03/18/22 09:00 03/18/22 08:53 03/18/22 08:53 03/18/22 08:45 03/18/22 08:38 03/18/22 08:38 03/18/22 08:30 03/18/22 08:23 03/18/22 08:23 03/18/22 08:45 35 03/18/22 08:15 03/18/22 08:10 03/18/22 08:10 03/18/22 08:00 03/18/22 07:45 03/18/22 07:30 03/18/22 07:25 03/18/22 07:25 03/18/22 07:15 03/18/22 08:00 03/18/22 07:45 35 03/18/22 07:00 03/18/22 06:25 03/18/22 06:25 03/18/22 06:00 03/18/22 07:11 03/18/22 04:25 35 03/18/22 04:25 03/18/22 04:14 03/18/22 04:14 03/18/22 04:00 35 03/18/22 03:55 03/18/22 03:55 03/18/22 04:00 35
--- NOTE | 2022-03-18 17:15 | Hospitalist Progress Note ---
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 Hold Cyclosporine given her severe pancytopenia Plan Severe pancytopenia -recent bone marrow biopsy at [facility] showed hypocellular marrow. Believed to be due to Covid 19 infection -Transfuse to keep Hb >7, Platelet above 10K. S/p multiple units transfused -Discussed with Dr Hemphill of Oncology, recommend trial of Neupogen--> received 1 dose but with no response E coli Bacteremia -Initially on Cefepime (03/15) then broadened to Cefepime and Flagyl (03/16). ID consulted, recommend Daptomycin and Meropenem pending final blood culture results. Daptomycin now discontinued. Meropenem switched to Cefepime and Flagyl -TTE results noted, no vegetations seen -repeat blood cultures negative so far -History of bioprosthetic aortic valve and PPM Aspiration pneumonia -Cefepime VDRF -extubated today Vfib Arrest -TTE shows EF 25-30% with possible takotsubo cardiomyopathy vs multivessel ischemic cardiomyopathy -Cardiology consulted, appreciate input Septic Shock -Required pressor support now weaned off History of renal transplant -continue Prednisone 5mg daily. Cyclosporine currently on hold. Management per Nephrology History of Lymphoma -last had chemotherapy Jan 2022. Sees Dr Clemons of [facility] Oncology DVT ppx SCD Admission and Anticipated Discharge Date Admission Date: March 14, 2022 Subjective Extubated this morning Remains febrile, feels cold Physical Exam Physical Exam: Pleasant, comfortable Respiratory: weak cough, breath sounds bilaterally, diminished at bases Cardiovascular: tachycardic but regular, no murmurs/rubs/gallops Gastrointestinal (Abdomen): soft, non tender Musculoskeletal: No edema Neurologic: awake, alert, spontaneously moving extremities Results & Data Results & Data ([facility]) Vital Signs (Past 12 Hours) Vital Signs Temp Pulse Resp BP Pulse Ox O2 Del Method O2 Flow Rate 03/18/22 16:00 37.8 C H 101 H 24 96 03/18/22 15:54 114/81 03/18/22 15:54 37.8 C H 103 H 18 95 03/18/22 15:00 37.5 C 108 H 17 96 03/18/22 14:00 37.4 C 97 H 22 94 03/18/22 13:00 37.4 C 100 H 17 96 03/18/22 12:53 37.4 C 109 H 18 95 03/18/22 12:53 99/78 L 03/18/22 12:00 37.6 C H 100 H 24 96 03/18/22 11:53 104/70 03/18/22 11:53 37.7 C H 100 H 27 H 95 Nasal Cannula 4 03/18/22 11:00 38.1 C H 101 H 19 92 03/18/22 10:53 92/69 L 03/18/22 10:53 38.1 C H 100 H 23 96 03/18/22 10:38 38.2 C H 101 H 18 95 03/18/22 10:38 97/69 L 03/18/22 10:23 38.2 C H 102 H 22 95 03/18/22 10:23 105/73 03/18/22 10:08 38.2 C H 105 H 15 95 03/18/22 10:08 94/71 L 03/18/22 10:00 38.2 C H 105 H 19 95 03/18/22 09:53 38.2 C H 106 H 20 96 03/18/22 09:53 112/70 03/18/22 09:38 102/70 03/18/22 09:38 38.2 C H 104 H 18 95 03/18/22 09:23 38.2 C H 100 H 20 97 03/18/22 09:23 102/79 03/18/22 09:00 Oxymask 6 03/18/22 09:08 93/68 L 03/18/22 09:08 38.2 C H 104 H 23 96 03/18/22 09:00 38.2 C H 103 H 24 97 03/18/22 08:53 38.2 C H 109 H 23 92 03/18/22 08:53 110/71 03/18/22 08:45 38.2 C H 109 H 13 97 03/18/22 08:38 38.2 C H 109 H 21 96 03/18/22 08:38 111/73 03/18/22 08:30 38.1 C H 106 H 22 97 03/18/22 08:23 104/83 03/18/22 08:23 38.0 C H 100 H 16 97 03/18/22 08:45 108 H 28 H 97 03/18/22 08:15 38.0 C H 100 H 20 96 03/18/22 08:10 38.0 C H 100 H 20 97 03/18/22 08:10 104/75 03/18/22 08:00 37.9 C H 103 H 24 96 03/18/22 07:45 37.4 C 29 H 98 03/18/22 07:30 37.8 C H 100 H 19 95 03/18/22 07:25 37.8 C H 95 H 19 96 03/18/22 07:25 93/69 L 03/18/22 07:15 37.7 C H 100 H 19 96 03/18/22 08:00 37.9 C H 100 H 20 96/69 L 100 03/18/22 07:45 104 H 26 H 95 03/18/22 07:00 37.7 C H 100 H 19 96 03/18/22 06:25 37.6 C H 100 H 16 95 03/18/22 06:25 103/70 03/18/22 06:00 37.6 C H 100 H 18 95 03/18/22 07:11 100 H FiO2 03/18/22 16:00 03/18/22 15:54 03/18/22 15:54 03/18/22 15:00 03/18/22 14:00 03/18/22 13:00 03/18/22 12:53 03/18/22 12:53 03/18/22 12:00 03/18/22 11:53 03/18/22 11:53 03/18/22 11:00 03/18/22 10:53 03/18/22 10:53 03/18/22 10:38 03/18/22 10:38 03/18/22 10:23 03/18/22 10:23 03/18/22 10:08 03/18/22 10:08 03/18/22 10:00 03/18/22 09:53 03/18/22 09:53 03/18/22 09:38 03/18/22 09:38 03/18/22 09:23 03/18/22 09:23 03/18/22 09:00 03/18/22 09:08 03/18/22 09:08 03/18/22 09:00 03/18/22 08:53 03/18/22 08:53 03/18/22 08:45 03/18/22 08:38 03/18/22 08:38 03/18/22 08:30 03/18/22 08:23 03/18/22 08:23 03/18/22 08:45 35 03/18/22 08:15 03/18/22 08:10 03/18/22 08:10 03/18/22 08:00 03/18/22 07:45 03/18/22 07:30 03/18/22 07:25 03/18/22 07:25 03/18/22 07:15 03/18/22 08:00 03/18/22 07:45 35 03/18/22 07:00 03/18/22 06:25 03/18/22 06:25 03/18/22 06:00 03/18/22 07:11
[2022-03-18] MEDS ORDERED: FIRST - Mouthwash BLM 119 ML PO PRN (21:47)
[2022-03-19] MEDS: oxyCODONE HCL IR 5 MG TAB (IMMEDIATE RELEASE) PO PRN ×3 (00:03→22:14)
[2022-03-19] MEDS: ACETAMINOPHEN 325 MG TAB PO PRN (01:13)
[2022-03-19] MEDS: metroNIDAZOLE 500 MG/100 ML BAG IV SCH ×3 (01:13→17:40)
[2022-03-19] MEDS: HYDROmorphone INJ 0.5 MG/0.5 ML SYR IV PRN ×3 (01:59→19:47)
[2022-03-19 05:41] LABS: BUN Creatinine Ratio 29.3 (10-20); Calcium 8.4 mg/dl (8.5-10.1); Creatinine Clr Calc Pharmacy 54.2 ml/min; Est GFR (African American) 63.6 ml/min; Est GFR (Non-African American) 54.9 ml/min; Phosphorus 3.2 mg/dl (2.5-4.9); Potassium 3.4 mmol/L (3.5-5.1)
[2022-03-19 06:02] LABS: Hematocrit (blood only) 27.5 % (34.1-44.9); Hemoglobin 9.5 g/dl (12.0-16.0); Mean Corpuscular Hgb Conc 34.5 g/dL (32.0-36.0); Mean Corpuscular Volume 83.8 fL (80.0-100.0); Mean Platelet Volume 12.5 fL (9.4-12.3); Platelet Count 17 K/uL (130-400); RDW Coefficient of Variation 13.7 % (11.5-14.5); RDW Standard Deviation 42.6 fL (36.4-46.3); Red Blood Count 3.28 M/uL (3.93-5.22); White Blood Count 0.38 K/ul (4.8-10.8)
[2022-03-19] MEDS: ICU ELECTROLYTE REPLACEMENT PROTOCOL SCH ×2 (06:08→17:13)
[2022-03-19] MEDS: POTASSIUM CHLORIDE CRTAB 20 MEQ TABCR PO SCH ×2 (06:26→11:21)
[2022-03-19] MEDS: AMIODARONE / D5W 360 MG/200 ML BAG IV SCH ×2 (07:41→18:46)
[2022-03-19] MEDS ORDERED: MAGNESIUM SULFATE / D5W 1 GM/100 ML BAG IV ONE (07:46)
--- NOTE | 2022-03-19 07:48 | Critical Care Progress Note ---
Date of Service March 19, 2022 Assessment & Plan (1) Pancytopenia: (2) H/O aortic valve replacement: (3) Pneumonia: (4) Febrile neutropenia: (5) DESIREE (acute kidney injury): (6) Thrombocytopenia: (7) Immunocompromised: (8) Cardiac arrest: Plan Reason Critically Ill: 51-year-old female past medical history of renal cell transplant, marginal cell,, pancytopenia was admitted to the hospital for anemia and generalized lethargy. Had a cardiac arrest with V. fib on 03/16/2022. In the ICU intubated for further care Neuro - [facility] ICU: Negative Restart patient's tramadol and muscle relaxant Ambien nightly Cardiac - -- Cardiac arrest Had episode of V. fib/torsade the point, was shocked times once Etiology could be underlying sepsis along with prolonged QTC Patient does have prolonged QTC of 480 when she came to the hospital Keep potassium greater than 4, magnesium greater than 2, phosphorus greater than 3 Continue with amiodarone drip -- Prolonged QTC Avoid QT prolonging medications Respiratory - -- S/p VDRF Airway protection s/p cardiac arrest Extubated 03/18/2022 Rodney with pulmonary toileting -- Multilobar pneumonia Likely aspiration pneumonia Continue with broad-spectrum rec GI - Continue with pantoprazole RENAL/LYTES - -- DESIREE on CKD Improving Likely from cardiac arrest and hypotensive episode Monitor BUN/creatinine Avoid nephrotoxic medications Strict ins and outs --History of renal cell transplant Initial in 1984 which lasted for 5 years, second transplant in 1990 On cyclosporine, prednisone 5 mg on a daily basis - Continue with Pike ENDO - -- ICU hypoglycemia protocol HEME - -- Pancytopenia Etiology is not known S/p bone marrow biopsy at [place], she did get Neupogen at that time. Last treatment was January 2022 with ibrutinib Patient got 4 unit of PRBC and 4 platelet during this hospitalization ID - -- Gram-negative bacteremia along with gram-positive cocci in chains Pansensitive E. coli, Slightly seems to be from UTI Daptomycin discontinued 03/17/2022 Meropenem de-escalated 03/18/2022--> currently on cefepime and Flagyl ID on board Repeat blood cultures on 03/17/2022 negative to date -- Urine culture growing Pansensitive E. coli --Prophylaxis VTE: IPC GI: Pantoprazole Lines: Right IJ, Pike Diet: Clear liquids advance as tolerated Plan: In/out: +756, urine output 1855 Chest x-ray still shows left-sided opacities. Right IJ in place. Hypokalemia has been replaced Patient did complain of diarrhea but C. difficile toxin is negative DC p.o. vancomycin. Continue with antibiotics Platelet 17 today. H&H is stable. No need to replace platelets. Resume patient's muscle relaxant today along with tramadol at a lower dose Ambien nightly Continue to observe in ICU for another 24 hours. Please note the above document was generated using voice recognition software. It may contain grammatical, syntax or spelling errors.Any formal questions or concerns about the content, text or information contained within the body of this dictation should be directly addressed to the provider for clarification. Admission and Anticipated Discharge Date Admission Date: March 14, 2022 Subjective Patient seen and examined at bedside. No acute distress, no events overnight Patient did not get a good night sleep. She usually takes Ambien at home. She was tachycardic in the 120s. She still spiking fever T-max 38.2. Has been getting Tylenol as needed Denies any nausea vomiting does complain of right-sided chest pain which is reproducible on palpation. Coughing up phlegm which is blood-tinged. Denies any headache. No nausea or vomiting. Did complain of diarrhea since yesterday. C. difficile was ordered which was negative Review of Systems Review of Systems: All systems reviewed & are unremarkable except as noted in Subjective Physical Exam Physical Exam: Constitutional: No acute distress HEENT: PERRLA, EOMI Respiratory system: Decreased air entry bilaterally, no wheeze, no rhonchi, positive crackles bilateral lower lobe CVS: S1-S2 positive, no murmurs or gallops, left-sided pacemaker Abdomen: Soft, nontender, nondistended, positive bowel sounds x4 Extremities: +2 pulses bilaterally radialis/ dorsalis pedis, no cyanosis, no edema Neuro: Awake alert, following commands Psych: Normal mood and affect G/U: Positive Pike Skin: no rashes, warm and dry Lymphatic: no cervical or axillary lymphadenopathy Results & Data Results & Data ([facility]) Vital Signs (Past 12 Hours) Vital Signs Temp Pulse Resp BP Pulse Ox O2 Del Method O2 Flow Rate 03/19/22 06:00 37.4 C 113 H 28 H 106/90 94 Nasal Cannula 3 03/19/22 05:54 37.8 C H 119 H 22 96 03/19/22 05:00 37.9 C H 116 H 23 92 Nasal Cannula 3 03/19/22 04:54 101/72 03/19/22 04:54 37.7 C H 118 H 19 92 03/19/22 04:00 38.3 C H 117 H 25 H 93 3 03/19/22 03:54 38.4 C H 118 H 25 H 100/69 93 3 03/19/22 03:00 39.0 C H 124 H 24 95 03/19/22 02:54 39.1 C H 111 H 21 101/77 94 Nasal Cannula 3 03/19/22 02:00 39.0 C H 89 19 92 Nasal Cannula 3 03/19/22 01:54 115/79 03/19/22 01:54 38.7 C H 105 H 30 H 92 03/19/22 01:00 38.8 C H 123 H 15 94 Nasal Cannula 3 03/19/22 00:54 38.7 C H 119 H 21 107/83 95 03/19/22 00:00 38.3 C H 115 H 30 H 98 3 03/18/22 23:54 38.3 C H 115 H 26 H 109/77 95 Nasal Cannula 3 03/19/22 00:00 119 H 03/18/22 23:00 37.9 C H 106 H 24 97 Nasal Cannula 3 03/18/22 22:54 37.8 C H 105 H 26 H 104/71 97 03/18/22 22:00 37.7 C H 99 H 22 96 Nasal Cannula 3 03/18/22 21:54 37.8 C H 105 H 24 98/68 L 96 3 03/18/22 21:10 37.7 C H 109 H 20 105/82 97 Nasal Cannula 3 03/18/22 21:00 37.8 C H 100 H 22 98 Nasal Cannula 3 03/18/22 20:00 38.1 C H 113 H 24 95 Nasal Cannula 3 03/18/22 19:54 37.7 C H 112 H 28 H 104/78 93 03/18/22 20:00 112 H 03/18/22 20:00 Nasal Cannula 3 Laboratory Results 03/19/22 04:45 03/19/22 04:45 Coding Level of Care Code 76662 SUB INP/OBS CARE 3/50MIN Diagnoses Pancytopenia D61.818 H/O aortic valve replacement Z95.2 Pneumonia J18.9 Febrile neutropenia D70.9; R50.81 DESIREE (acute kidney injury) N17.9 Thrombocytopenia D69.6 Immunocompromised D89.9 Cardiac arrest I46.9
[2022-03-19] MEDS: POTASSIUM CHLORIDE / WTR 20 MEQ/100 ML PLCT IV SCH ×3 (08:00→11:57)
[2022-03-19] MEDS ORDERED: ZOLPIDEM TARTRATE 5 MG TAB PO PRN (09:43)
[2022-03-19] MEDS ORDERED: ACETAMINOPHEN 1000 MG/100 ML IV IV ONE (09:47)
[2022-03-19] MEDS: MEMANTINE HCL 5 MG TAB PO SCH ×2 (09:52→17:40)
[2022-03-19] MEDS: predniSONE 5 MG TAB PO SCH (09:53)
[2022-03-19] MEDS: busPIRone 5 MG TAB PO SCH ×3 (09:53→19:42)
[2022-03-19] MEDS: PANTOprazole 40 MG in SYRINGE 0 ML IV SCH ×2 (09:55→19:42)
[2022-03-19] MEDS: METAXALONE 800 MG TABLET PO SCH ×2 (10:04→19:42)
[2022-03-19] MEDS: CEFEPIME 2,000 MG in SYRINGE 0 ML IV SCH ×2 (10:05→22:07)
--- NOTE | 2022-03-19 10:21 | XRay Report ---
XR chest 1V portable HISTORY: Acute bacteremia. Shortness of breath. Pneumonia. COMPARISON: Chest CT 03/17/2022. FINDINGS: No pneumothorax. The heart remains mildly enlarged. There are postoperative changes, an aor tic valve prosthesis, and a left-sided dual-chamber pacemaker. A right jugular central venous cathete r terminates in the proximal SVC. This remains unchanged. The endotracheal tube is been removed. Left greater than right airspace opacities are again noted consistent with patient's history of a pneumon ia. IMPRESSION: Redemonstration of the left greater than right airspace opacities consistent with a pneumonia. ACT 112: Negative or not required by law. Electronically signed by: Hi Rios M.D. 03/19/2022 10:20 AM
--- NOTE | 2022-03-19 10:40 | Cardiology Progress Note ---
Date of Service March 19, 2022 Assessment & Plan (1) Cardiac arrest: (2) Torsades de pointes: (3) Cardiomyopathy: (4) S/P AVR (aortic valve replacement): (5) Sepsis due to Gram negative bacteria: (6) Sepsis, Gram positive: (7) Pancytopenia: (8) Immunosuppressed status: (9) Kidney transplant recipient: Plan Continue pacemaker support with a base rate of 100 bpm to prevent recurrent torsades. Replete electrolytes as indicated. Maintain serum potassium greater than 4.0. Consider reducing pacemaker rate over the weekend pending clinical course. 2D transthoracic echocardiogram without evidence of vegetation, however, transesophageal echocardiogram may be considered if patient's clinical status improves during hospitalization versus possible 6-week course of antibiotics given the patient's severe bacteremia and history of AVR Hemodynamic support, ventilator management, and treatment of acute sepsis as per critical care. Poor prognosis. Admission and Anticipated Discharge Date Admission Date: March 14, 2022 Subjective Pt seen and examined. Chart reviewed. Telemetry reviewed. Review of Systems Review of Systems: All systems reviewed & are unremarkable except as noted in HPI & below Physical Exam Physical Exam: General: Awake, alert and oriented x 3. No acute distress. HEENT: Normocephalic, atraumatic. Pupils equal, round and reactive to light and accommodation. Extraocular muscles are intact. Anicteric sclera. Moist mucous membranes. Neck: No JVD. No bruit. Cardiovascular: Regular. Positive S-4. Normal S-1 and S-2. No S-3. No murmurs or rubs. Pulmonary: Clear to auscultation B/L. No rales, rhonchi or wheezing Abdomen: Bowel sounds x 4, soft. No rebound, guarding or tenderness. No organomegaly. Extremities: No clubbing, cyanosis or edema. +2 pedal pulses bilaterally. Skin: Warm and dry. Results & Data ([facility]) Vital Signs (Past 12 Hours) Vital Signs Temp Pulse Resp BP Pulse Ox O2 Del Method O2 Flow Rate 03/19/22 06:00 37.4 C 113 H 28 H 106/90 94 Nasal Cannula 3 03/19/22 05:54 37.8 C H 119 H 22 96 03/19/22 05:00 37.9 C H 116 H 23 92 Nasal Cannula 3 03/19/22 04:54 101/72 03/19/22 04:54 37.7 C H 118 H 19 92 03/19/22 04:00 38.3 C H 117 H 25 H 93 3 03/19/22 03:54 38.4 C H 118 H 25 H 100/69 93 3 03/19/22 03:00 39.0 C H 124 H 24 95 03/19/22 02:54 39.1 C H 111 H 21 101/77 94 Nasal Cannula 3 03/19/22 02:00 39.0 C H 89 19 92 Nasal Cannula 3 03/19/22 01:54 115/79 03/19/22 01:54 38.7 C H 105 H 30 H 92 03/19/22 01:00 38.8 C H 123 H 15 94 Nasal Cannula 3 03/19/22 00:54 38.7 C H 119 H 21 107/83 95 03/19/22 00:00 38.3 C H 115 H 30 H 98 3 03/18/22 23:54 38.3 C H 115 H 26 H 109/77 95 Nasal Cannula 3 03/19/22 00:00 119 H 03/18/22 23:00 37.9 C H 106 H 24 97 Nasal Cannula 3 03/18/22 22:54 37.8 C H 105 H 26 H 104/71 97
[2022-03-19] MEDS ORDERED: Nursing to Pharmacy Communication SCH (11:45)
[2022-03-19] MEDS ORDERED: VANCOMYCIN HCL 500 MG/10 ML SOLN PO SCH (12:00)
[2022-03-19] MEDS ORDERED: RASPBERRY SYRUP 5 ML UDP PO SCH (12:00)
[2022-03-19] MEDS: CIMETIDINE 400 MG PO SCH ×2 (12:24→19:41)
[2022-03-19] MEDS: FIRST - Mouthwash BLM 119 ML PO PRN ×2 (12:24→20:48)
[2022-03-19] MEDS: traMADol HCL 50 MG TABLET PO PRN (12:32)
[2022-03-19] MEDS: ACETAMINOPHEN 1,000 MG/100 ML VIAL IV PRN (16:04)
[2022-03-19 16:24] LABS: BUN Creatinine Ratio 30.8 (10-20); Calcium 9.1 mg/dl (8.5-10.1); Creatinine Clr Calc Pharmacy 58.2 ml/min; Est GFR (African American) 70.1 ml/min; Est GFR (Non-African American) 60.5 ml/min; Potassium 4.8 mmol/L (3.5-5.1)
--- NOTE | 2022-03-19 17:48 | Hospitalist Progress Note ---
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 Hold Cyclosporine given her severe pancytopenia Plan Severe pancytopenia -recent bone marrow biopsy at [place] showed hypocellular marrow. Believed to be due to Covid 19 infection -Transfuse to keep Hb >7, Platelet above 10K. S/p 4 units pRBC and 4 units platelet this admission -Discussed with Dr Hemphill of Oncology, recommend trial of Neupogen--> received 1 dose but with no response E coli Bacteremia -Initially on Cefepime (03/15) then broadened to Cefepime and Flagyl (03/16). ID consulted, recommend Daptomycin and Meropenem pending final blood culture results. Daptomycin now discontinued. Meropenem switched to Cefepime and Flagyl -TTE results noted, no vegetations seen -repeat blood cultures negative so far but patient remains febrile -History of bioprosthetic aortic valve and PPM Aspiration pneumonia -Cefepime and flagyl VDRF -extubated 03/18/22 Vfib Arrest -TTE shows EF 25-30% with possible takotsubo cardiomyopathy vs multivessel ischemic cardiomyopathy -Cardiology consulted, appreciate input -continue amiodarone drip, currently paced at 100 Septic Shock -Required pressor support now weaned off History of renal transplant -continue Prednisone 5mg daily. Cyclosporine currently on hold. Management per Nephrology History of Lymphoma -last had chemotherapy Jan 2022. Sees Dr Clemons of [facility] Oncology DVT ppx SCD Admission and Anticipated Discharge Date Admission Date: March 14, 2022 Subjective Remains febrile. No new complaints currently Loose stools but C diff negative Physical Exam Physical Exam: Appears weak, acutely ill but not toxic Respiratory: coarse rhonchi, no wheezing, no accessory muscle use Cardiovascular: tachycardic, no murmurs/rubs/gallops Gastrointestinal (Abdomen): soft, non tender Musculoskeletal: No edema Neurologic: awake, alert, spontaneously moving extremities Results & Data Results & Data ([facility]) Vital Signs (Past 12 Hours) Vital Signs Temp Pulse Resp BP Pulse Ox O2 Del Method O2 Flow Rate 03/19/22 17:00 38.1 C H 121 H 20 94 03/19/22 17:00 122/90 03/19/22 16:02 112/85 03/19/22 16:02 38.1 C H 122 H 34 H 93 03/19/22 16:00 38.1 C H 123 H 36 H 95 03/19/22 15:01 134/103 H 03/19/22 15:01 117 H 26 H 92 03/19/22 15:00 102 H 28 H 95 03/19/22 08:00 117 H 03/19/22 14:00 115 H 31 H 91 03/19/22 14:00 149/107 H 03/19/22 13:01 117 H 35 H 91 03/19/22 13:01 127/90 03/19/22 13:00 118 H 33 H 94 03/19/22 12:55 111 H 33 H 92 03/19/22 12:55 131/92 03/19/22 12:53 104 H 32 H 03/19/22 12:53 101/73 03/19/22 12:00 38.0 C H 117 H 27 H 91 03/19/22 11:54 111/87 03/19/22 11:54 38.0 C H 115 H 28 H 92 03/19/22 08:00 Nasal Cannula 3 03/19/22 11:00 38.5 C H 111 H 93 03/19/22 10:55 38.5 C H 121 H 24 90 03/19/22 10:55 109/71 03/19/22 10:00 38.5 C H 119 H 24 96 03/19/22 09:54 38.4 C H 120 H 95 03/19/22 09:54 117/83 03/19/22 09:30 104/84 03/19/22 09:30 38.4 C H 123 H 21 88 L 03/19/22 09:00 38.3 C H 121 H 23 95 03/19/22 08:54 101/74 03/19/22 08:54 38.3 C H 113 H 24 95 03/19/22 08:00 37.9 C H 122 H 24 89 L 03/19/22 07:54 103/83 03/19/22 07:54 37.9 C H 122 H 21 92 03/19/22 07:00 37.8 C H 110 H 26 H 90 03/19/22 06:54 110/76 03/19/22 06:54 37.8 C H 116 H 24 97 03/19/22 06:00 37.4 C 113 H 28 H 106/90 94 Nasal Cannula 3 03/19/22 05:54 37.8 C H 119 H 22 96
[2022-03-20] MEDS: traMADol HCL 50 MG TABLET PO PRN ×2 (00:18→12:29)
[2022-03-20] MEDS: ACETAMINOPHEN 1,000 MG/100 ML VIAL IV PRN ×2 (00:41→12:29)
[2022-03-20] MEDS: metroNIDAZOLE 500 MG/100 ML BAG IV SCH ×3 (02:03→18:36)
[2022-03-20 05:32] LABS: BUN Creatinine Ratio 31.8 (10-20); Calcium 8.6 mg/dl (8.5-10.1); Creatinine Clr Calc Pharmacy 58.2 ml/min; Est GFR (African American) 70.1 ml/min; Est GFR (Non-African American) 60.5 ml/min; Potassium 4.1 mmol/L (3.5-5.1)
[2022-03-20] MEDS: ICU ELECTROLYTE REPLACEMENT PROTOCOL SCH (05:53)
[2022-03-20] MEDS: oxyCODONE HCL IR 5 MG TAB (IMMEDIATE RELEASE) PO PRN ×3 (05:58→23:25)
[2022-03-20] MEDS: AMIODARONE / D5W 360 MG/200 ML BAG IV SCH (06:00)
--- NOTE | 2022-03-20 07:40 | Critical Care Progress Note ---
Date of Service March 20, 2022 Assessment & Plan (1) H/O aortic valve replacement: Plan: Reason Critically Ill: 51-year-old female PMHx of renal cell transplant, marginal cell,, pancytopenia was admitted to the hospital for anemia and generalized lethargy.Had a cardiac arrest with V. fib on 03/16/2022 and brought to the ICU for intubation and further management. Extubated 03/18/2022. Neuro - [facility] ICU: Negative Cont. tramadol and muscle relaxant D/c'd Ambien due to QT prolongation Cardiac - -- Cardiac arrest Had episode of V. fib/torsade, shocked x1 Etiology could be underlying sepsis along with prolonged QTC Patient had prolonged QTC of 480 when she came to the hospital Keep potassium >4, magnesium >2, phosphorus >3 Transitioned amiodarone drip to 400mg PO daily. Cardiology following -- Prolonged QTC Avoid QT prolonging medications D/c'd ambien, zofran Respiratory - -- s/p VDRF Airway protection s/p cardiac arrest Extubated 03/18/2022. Currently on NC. Pulmonary toileting -- Multilobar pneumonia Likely aspiration pneumonia Continue with broad-spectrum rec GI - Continue with pantoprazole. Transitioned to PO. RENAL/LYTES - -- DESIREE on CKD Resolved Likely from cardiac arrest and hypotensive episode Monitor BUN/creatinine Avoid nephrotoxic medications Strict I/Os --History of renal cell transplant Initial in 1984 which lasted for 5 years, second transplant in 1990 Cyclosporine on hold per nephro prednisone 5 mg daily, chronically - Remove parra ENDO - -- ICU hypoglycemia protocol HEME - -- Pancytopenia Etiology is not known S/p bone marrow biopsy at [place], she did get Neupogen at that time. Last treatment was January 2022 with ibrutinib Patient got 4 unit of PRBC and 4 platelet during this hospitalization Platelets this morning 4k. Deferred replenishment to hospitalist after they speak with [facility] hematology. ID - -- Gram-negative bacteremia along with gram-positive cocci in chains Pansensitive E. coli, source may be from UTI Daptomycin discontinued 03/17/2022 Meropenem de-escalated 03/18/2022--> currently on cefepime and Flagyl, will cont. this for now until re-discussing case with ID. ID on board Repeat blood cultures on 03/17/2022 negative to date -- Urine culture growing Pansensitive E. coli abx as above --Prophylaxis VTE: IPC GI: Pantoprazole Lines: Right IJ Diet: Full liquid advance as tolerated Thank you for allowing us to be part of this patient's care.Please refer to my attending's documentation for any further recommendations. Patient is hemodynamically stable at this time and okay for downgrade from the ICU. (2) Pancytopenia: (3) Pneumonia: (4) Febrile neutropenia: (5) DESIREE (acute kidney injury): (6) Thrombocytopenia: (7) Immunocompromised: (8) Cardiac arrest: (9) Sepsis, Gram positive: (10) Sepsis due to Gram negative bacteria: Admission and Anticipated Discharge Date Admission Date: March 14, 2022 Supervising Physician Co-Signing Physician Notes Patient seen and examined. EMR reviewed. Discussed with overnight critical care CARRIE as well as with family practice resident. Patient was reviewed on multidisciplinary rounds. Agree with assessment plan as noted. Patient continues to improve from her gram-negative sepsis and pancytopenia. Recommend discontinuation of Parra catheter. Will discuss with nephrology reinstitution of cyclosporine. Given her profound cytopenias, recommend hematology oncology consultation. Recommend transfusion of platelets to keep counts above 5-10,000 to prevent spontaneous bleeding. In neutropenic fevers and infections, there is data to suggest supporting platelet counts above 10- 20,000. Will defer to hematology oncology. Infectious disease is adjusting antimicrobial therapy. We will discontinue Flagyl at this point in time. The patient is on multiple QT prolonging agents. These will be tapered down is much as possible. Transition amiodarone from IV to 400 mg daily oral with additional recommendations per cardiology. The patient appears stable to transition out of the intensive care unit to a telemetry service. Critical care services will sign off. Feel free to contact us with questions or concerns Subjective Patient seen at bedside this morning. Parra still in place. Some R sided chest pain. Sputum improving and becoming less bloody. Some sob on 3L NC. Denies headache, abd pain, N/V. Review of Systems Review of Systems: All systems reviewed & are unremarkable except as noted in HPI & below Physical Exam Physical Exam: Constitutional: No acute distress HEENT: PERRLA,EOMI Respiratory system:Decreased air entry bilaterally, no wheeze, no rhonchi, positive crackles bilateral lower lobe CVS: S1-S2 positive, no murmurs or gallops,left-sided pacemaker Abdomen: Soft, nontender, nondistended, positive bowel sounds x4 Extremities: +2 pulses bilaterally radialis/ dorsalis pedis,no cyanosis, no edema Neuro: Awake, alert, following commands Psych: Normal mood and affect G/U:Positive Parra Skin: no rashes, warm, dry Lymphatic: no cervical or axillary lymphadenopathy Results & Data Results & Data ([facility]) Vital Signs (Past 12 Hours) Vital Signs Temp Pulse Resp BP Pulse Ox O2 Del Method O2 Flow Rate 03/20/22 06:00 37.4 C 112 H 25 H 96 03/20/22 06:00 95/67 L 03/20/22 05:00 37.4 C 111 H 24 95 03/20/22 05:00 105/75 03/20/22 04:00 37.4 C 111 H 17 95 03/20/22 04:00 95/67 L 03/20/22 03:00 37.7 C H 111 H 23 94 03/20/22 03:00 102/68 03/20/22 02:00 38.2 C H 116 H 25 H 94 03/20/22 02:00 97/73 L 03/20/22 01:00 38.5 C H 120 H 25 H 94 03/20/22 01:00 113/82 03/20/22 00:00 38.0 C H 118 H 27 H 97 03/20/22 00:00 117/95 03/20/22 04:00 96 Nasal Cannula 3 03/19/22 22:45 110 H 03/19/22 23:00 37.8 C H 112 H 25 H 94 03/19/22 23:00 111/81 03/19/22 22:00 37.8 C H 109 H 26 H 96 03/19/22 22:00 101/77 03/19/22 21:00 37.6 C H 111 H 27 H 96 03/19/22 21:00 102/76 03/19/22 20:00 37.6 C H 114 H 25 H 96 Nasal Cannula 3 03/19/22 20:00 106/75 03/19/22 20:00 Nasal Cannula 3 Laboratory Results 03/20/22 03/19/22 03/19/22 Range/Units 04:45 14:38 07:57 Sodium 134 L 134 L (136-145) mmol/L Potassium 4.1 4.8 D (3.5-5.1) mmol/L Chloride 104 103 (98-107) mmol/L Carbon Dioxide 22 23 (21-32) mmol/L Anion Gap 8 8 (3-11) BUN 34 H 33 H (6-23) mg/dl Creatinine 1.07 1.07 (0.6-1.2) mg/dl Est Cr Clr Drug Dosing 58.2 58.2 ml/min Est GFR ( Amer) 70.1 70.1 ml/min Est GFR (Non-Af Amer) 60.5 60.5 ml/min BUN/Creatinine Ratio 31.8 H 30.8 H (10-20) Glucose 88 98 (70-99(Fasting)) mg/dl Calcium 8.6 9.1 (8.5-10.1) mg/dl Phosphorus 3.0 (2.5-4.9) mg/dl Magnesium 1.8 (1.7-2.4) mg/dl Diagnostic Findings 03/20/22 03/20/22 03/20/22 Range/Units 04:45 04:45 04:45 WBC 0.54 L* (4.8-10.8) K/ul RBC 3.32 L (3.93-5.22) M/uL Hgb 9.7 L (12.0-16.0) g/dl Hct 28.2 L (34.1-44.9) % MCV 84.9 (80.0-100.0) fL MCH 29.2 (25.0-34.0) pg MCHC 34.4 (32.0-36.0) g/dL RDW Std Deviation 43.4 (36.4-46.3) fL RDW Coeff of Delia 13.9 (11.5-14.5) % Plt Count 4 L* D (130-400) K/uL Immature Gran % (Auto) 0.0 % Neut % (Auto) 5.5 % Lymph % (Auto) 92.6 % [place] % (Auto) 1.9 % Eos % (Auto) 0.0 % Baso % (Auto) 0.0 % Neut # (Auto) 0.03 L* (1.4-6.5) K/uL Lymph # (Auto) 0.50 L (1.2-3.4) K/uL [place] # (Auto) 0.01 L (0.24-0.82) K/uL Eos # (Auto) 0.00 (0-0.50) K/uL Baso # (Auto) 0.00 (0-0.2) K/uL Immature Gran # (Auto) 0.00 (0.00-0.02) K/uL Platelet Estimate Signific. Decreased L (Normal) Peripher Smr Path Cons Sodium 134 L (136-145) mmol/L Potassium 4.1 (3.5-5.1) mmol/L Chloride 104 (98-107) mmol/L Carbon Dioxide 22 (21-32) mmol/L Anion Gap 8 (3-11) BUN 34 H (6-23) mg/dl Creatinine 1.07 (0.6-1.2) mg/dl Est Cr Clr Drug Dosing 58.2 ml/min Est GFR ( Amer) 70.1 ml/min Est GFR (Non-Af Amer) 60.5 ml/min BUN/Creatinine Ratio 31.8 H (10-20) Glucose 88 (70-99(Fasting)) mg/dl Calcium 8.6 (8.5-10.1) mg/dl Phosphorus 3.0 (2.5-4.9) mg/dl Magnesium 1.8 (1.7-2.4) mg/dl 03/19/22 03/18/22 Range/Units 14:38 05:00 WBC (4.8-10.8) K/ul RBC (3.93-5.22) M/uL Hgb (12.0-16.0) g/dl Hct (34.1-44.9) % MCV (80.0-100.0) fL MCH (25.0-34.0) pg MCHC (32.0-36.0) g/dL RDW Std Deviation (36.4-46.3) fL RDW Coeff of Delia (11.5-14.5) % Plt Count (130-400) K/uL Immature Gran % (Auto) % Neut % (Auto) % Lymph % (Auto) % [place] % (Auto) % Eos % (Auto) % Baso % (Auto) % Neut # (Auto) (1.4-6.5) K/uL Lymph # (Auto) (1.2-3.4) K/uL [place] # (Auto) (0.24-0.82) K/uL Eos # (Auto) (0-0.50) K/uL Baso # (Auto) (0-0.2) K/uL Immature Gran # (Auto) (0.00-0.02) K/uL Platelet Estimate (Normal) Peripher Smr Path Cons Sodium 134 L (136-145) mmol/L Potassium 4.8 D (3.5-5.1) mmol/L Chloride 103 (98-107) mmol/L Carbon Dioxide 23 (21-32) mmol/L Anion Gap 8 (3-11) BUN 33 H (6-23) mg/dl Creatinine 1.07 (0.6-1.2) mg/dl Est Cr Clr Drug Dosing 58.2 ml/min Est GFR ( Amer) 70.1 ml/min Est GFR (Non-Af Amer) 60.5 ml/min BUN/Creatinine Ratio 30.8 H (10-20) Glucose 98 (70-99(Fasting)) mg/dl Calcium 9.1 (8.5-10.1) mg/dl Phosphorus (2.5-4.9) mg/dl Magnesium (1.7-2.4) mg/dl Resident Activity Tracking Resident Involvement: Resident Care Provided Care Provided: Adult Hospital Medicine
[2022-03-20 08:02] LABS: Hematocrit (blood only) 28.2 % (34.1-44.9); Hemoglobin 9.7 g/dl (12.0-16.0); Mean Corpuscular Hemoglobin 29.2 pg (25.0-34.0); Mean Corpuscular Hgb Conc 34.4 g/dL (32.0-36.0); Mean Corpuscular Volume 84.9 fL (80.0-100.0); Platelet Count 4 K/uL (130-400); RDW Coefficient of Variation 13.9 % (11.5-14.5); RDW Standard Deviation 43.4 fL (36.4-46.3); Red Blood Count 3.32 M/uL (3.93-5.22); White Blood Count 0.54 K/ul (4.8-10.8)
[2022-03-20 08:20] LABS: Lymphocytes % (auto) 92.6 %; Monocytes # (auto) 0.01 K/uL (0.24-0.82); Monocytes % (auto) 1.9 %; Neutrophils # (auto) 0.03 K/uL (1.4-6.5); Neutrophils % (auto) 5.5 %; Platelet Estimate Signific. Decreased (Normal)
[2022-03-20] MEDS: MEMANTINE HCL 5 MG TAB PO SCH ×2 (08:50→17:21)
[2022-03-20] MEDS: CIMETIDINE 400 MG PO SCH ×2 (08:50→20:27)
[2022-03-20] MEDS: busPIRone 5 MG TAB PO SCH ×3 (08:50→20:28)
[2022-03-20] MEDS: METAXALONE 800 MG TABLET PO SCH ×2 (08:51→20:28)
[2022-03-20] MEDS: predniSONE 5 MG TAB PO SCH (08:51)
[2022-03-20] MEDS: PANTOprazole 40 MG in SYRINGE 0 ML IV SCH (08:54)
[2022-03-20] MEDS ORDERED: MAGNESIUM SULFATE / D5W 1 GM/100 ML BAG IV ONE (09:22)
[2022-03-20] MEDS: CEFEPIME 2,000 MG in SYRINGE 0 ML IV SCH ×2 (09:29→17:24)
[2022-03-20] MEDS: HYDROmorphone INJ 0.5 MG/0.5 ML SYR IV PRN ×2 (10:34→20:28)
[2022-03-20] MEDS: AMIODARONE 200 MG TAB PO SCH (11:01)
--- NOTE | 2022-03-20 11:29 | Billing Data ---
Date of Service March 20, 2022 Coding Level of Care Code 94439 SUB INP/OBS CARE MIN
--- NOTE | 2022-03-20 11:40 | Cardiology Progress Note ---
Date of Service March 20, 2022 Assessment & Plan (1) Cardiac arrest: (2) Torsades de pointes: (3) Cardiomyopathy: (4) S/P AVR (aortic valve replacement): (5) Sepsis due to Gram negative bacteria: (6) Sepsis, Gram positive: (7) Pancytopenia: (8) Immunosuppressed status: (9) Kidney transplant recipient: Plan Continue pacemaker support with a base rate of 100 bpm to prevent recurrent torsades. Replete electrolytes as indicated. Maintain serum potassium greater than 4.0. Consider reducing pacemaker rate over the weekend pending clinical course. 2D transthoracic echocardiogram without evidence of vegetation, however, transesophageal echocardiogram may be considered if patient's clinical status improves during hospitalization versus possible 6-week course of antibiotics given the patient's severe bacteremia and history of AVR rates now greater than 100bpm will add low dose beta kristi and anticipate lower pacer rates on 03/21 if tolerates Admission and Anticipated Discharge Date Admission Date: March 14, 2022 Subjective Pt seen and examined. Chart reviewed. Telemetry reviewed. Review of Systems Review of Systems: Unobtainable due to endotracheal tube Results & Data ([facility]) Vital Signs (Past 12 Hours) Vital Signs Temp Pulse Resp BP Pulse Ox O2 Del Method O2 Flow Rate 03/20/22 11:07 38.6 C H 125 H 26 H 104/70 94 3 03/20/22 08:00 Nasal Cannula 3 03/20/22 09:01 38.2 C H 98 H 29 H 95 03/20/22 09:01 113/68 03/20/22 09:00 38.1 C H 105 H 38 H 95 03/20/22 08:00 38.1 C H 126 H 30 H 95 03/20/22 08:00 121/88 03/20/22 07:00 37.9 C H 120 H 18 98 03/20/22 07:00 118/88 03/20/22 06:00 37.4 C 112 H 25 H 96 03/20/22 06:00 95/67 L 03/20/22 05:00 37.4 C 111 H 24 95 03/20/22 05:00 105/75 03/20/22 04:00 37.4 C 111 H 17 95 03/20/22 04:00 95/67 L 03/20/22 03:00 37.7 C H 111 H 23 94 03/20/22 03:00 102/68 03/20/22 02:00 38.2 C H 116 H 25 H 94 03/20/22 02:00 97/73 L 03/20/22 01:00 38.5 C H 120 H 25 H 94 03/20/22 01:00 113/82 03/20/22 00:00 38.0 C H 118 H 27 H 97 03/20/22 00:00 117/95 03/20/22 04:00 96 Nasal Cannula 3
[2022-03-20] MEDS: METOPROLOL SUCC 25MG EXT REL TAB PO SCH (12:27)
--- NOTE | 2022-03-20 14:34 | Electrocardiogram Report ---
Test Reason : Blood Pressure : / mmHG Vent. Rate : 123 BPM Atrial Rate : 123 BPM P-R Int : 144 ms QRS Dur : 154 ms QT Int : 382 ms P-R-T Axes : 043 093 164 degrees QTc Int : 546 ms Atrial-sensed ventricular-paced rhythm Abnormal ECG When compared with ECG of 16-MAR-2022 13:52, Electronic ventricular pacemaker has replaced Atrial fibrillation Vent. rate has increased BY 48 BPM Confirmed by Tramaine Phelps ([id number]) on 03/20/2022 2:33:44 PM Referred By: Stuart Ravi Confirmed By:Tramaine Phelps
--- NOTE | 2022-03-20 18:46 | Hospitalist Progress Note ---
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 Hold Cyclosporine given her severe pancytopenia Plan Severe pancytopenia -recent bone marrow biopsy at [facility] showed hypocellular marrow. Believed to be due to Covid 19 infection -Transfuse to keep Hb >7, Platelet above 10K. S/p 4 units pRBC and 5 units platelet this admission -Discussed with Dr Hemphill of Oncology, recommend trial of Neupogen--> received 1 dose but with no response. Still with persistent pancytopenia, will discuss again with Heme/Onc tomorrow -Repeat CBC again today. Aspiration Pneumonia E coli Bacteremia E coli UTI -Initially on Cefepime (03/15) then broadened to Cefepime and Flagyl (03/16). ID consulted, recommend Daptomycin and Meropenem pending final blood culture results. Daptomycin now discontinued. Meropenem switched to Cefepime and Flagyl. -TTE results noted, no vegetations seen -repeat blood cultures negative so far but patient remains febrile -History of bioprosthetic aortic valve and PPM -Remains febrile, repeat blood cultures negative. Will discuss case with ID regarding antiobiotic recommendations VDRF -extubated 03/18/22 Vfib Arrest -TTE shows EF 25-30% with possible takotsubo cardiomyopathy vs multivessel ischemic cardiomyopathy -Cardiology consulted, appreciate input. Amiodarone drip discontinued, started amiodarone 400mg daily and Metoprolol 12.5mg daily Septic Shock -Required pressor support now weaned off History of renal transplant -continue Prednisone 5mg daily. Cyclosporine currently on hold. Management per Nephrology History of Lymphoma -last had chemotherapy Jan 2022. Sees Dr Clemons of [facility] Oncology DVT ppx SCD Admission and Anticipated Discharge Date Admission Date: March 14, 2022 Subjective fever curve improved sat in chair today for 15 min and "I feel wiped out" received 1 unit platelet Physical Exam Physical Exam: generalized weakness, non toxic Respiratory: breathing comfortably on NC, diminished at bases, no wheezing Cardiovascular: tachycardic but regular, no murmurs/rubs/gallops Gastrointestinal (Abdomen): soft, non tender Musculoskeletal: No edema Neurologic: awake, alert, spontaneously moving extremities Genitourinary: parra catheter draining pale yellow urine Results & Data Results & Data ([facility]) Vital Signs (Past 12 Hours) Vital Signs Temp Pulse Resp BP Pulse Ox O2 Del Method O2 Flow Rate 03/20/22 18:01 117/85 03/20/22 18:01 37.3 C 111 H 27 H 98 03/20/22 18:00 37.3 C 104 H 26 H 95 03/20/22 17:00 37.4 C 104 H 22 92 03/20/22 17:00 94/76 L 03/20/22 16:00 37.5 C 106 H 21 94 03/20/22 16:00 103/77 03/20/22 15:00 37.8 C H 108 H 23 96 03/20/22 15:00 109/72 03/20/22 14:00 38.3 C H 113 H 24 94 03/20/22 14:00 101/77 03/20/22 13:00 38.7 C H 121 H 25 H 91 03/20/22 13:00 98/67 L 03/20/22 12:45 104/73 03/20/22 12:45 38.8 C H 120 H 28 H 03/20/22 12:41 104/82 03/20/22 12:41 38.8 C H 123 H 24 95 03/20/22 12:15 86/70 L 03/20/22 12:15 38.9 C H 124 H 30 H 03/20/22 12:14 38.9 C H 125 H 26 H 97 03/20/22 12:14 100/70 03/20/22 12:00 39.0 C H 125 H 27 H 98 03/20/22 11:45 96/67 L 03/20/22 11:45 38.9 C H 100 H 24 91 03/20/22 11:30 38.9 C H 102 H 32 H 03/20/22 11:30 101/65 03/20/22 11:29 101/65 03/20/22 11:29 38.8 C H 100 H 29 H 03/20/22 11:24 38.4 C H 99 H 31 H 99 03/20/22 11:24 99/71 L 03/20/22 11:15 99/73 L 03/20/22 11:15 38.3 C H 127 H 33 H 91 03/20/22 11:12 104/70 03/20/22 11:12 38.6 C H 126 H 25 H 03/20/22 11:00 38.5 C H 126 H 21 93 03/20/22 11:00 97/72 L 03/20/22 10:00 37.9 C H 127 H 21 95 03/20/22 10:00 111/76 03/20/22 12:15 38.6 C H 104 H 20 101/65 96 3 03/20/22 12:13 38.4 C H 104 H 24 99/71 L 100 3 03/20/22 11:43 38.2 C H 129 H 24 99/73 L 96 3 03/20/22 11:28 36.6 C 126 H 24 104/70 94 03/20/22 11:07 38.6 C H 125 H 26 H 104/70 94 3 03/20/22 08:00 Nasal Cannula 3 03/20/22 09:01 38.2 C H 98 H 29 H 95 03/20/22 09:01 113/68 03/20/22 09:00 38.1 C H 105 H 38 H 95 03/20/22 08:00 38.1 C H 126 H 30 H 95 03/20/22 08:00 121/88 03/20/22 07:00 37.9 C H 120 H 18 98 03/20/22 07:00 118/88
[2022-03-20 19:31] LABS: Hematocrit (blood only) 25.8 % (34.1-44.9); Hemoglobin 8.8 g/dl (12.0-16.0); Mean Corpuscular Hgb Conc 34.1 g/dL (32.0-36.0); Mean Corpuscular Volume 85.1 fL (80.0-100.0); Platelet Count 8 K/uL (130-400); RDW Coefficient of Variation 13.8 % (11.5-14.5); RDW Standard Deviation 42.9 fL (36.4-46.3); Red Blood Count 3.03 M/uL (3.93-5.22); White Blood Count 0.57 K/ul (4.8-10.8)
[2022-03-20] MEDS: PANTOprazole 40 MG TAB PO SCH (20:27)
[2022-03-20] MEDS: ACETAMINOPHEN 325 MG TAB PO PRN (20:49)
[2022-03-20] MEDS: FIRST - Mouthwash BLM 119 ML PO PRN (23:25)
[2022-03-21] MEDS: traMADol HCL 50 MG TABLET PO PRN ×2 (00:33→13:55)
[2022-03-21] MEDS: metroNIDAZOLE 500 MG/100 ML BAG IV SCH ×3 (02:58→17:48)
[2022-03-21] MEDS: CEFEPIME 2,000 MG in SYRINGE 0 ML IV SCH ×3 (02:58→16:56)
[2022-03-21] MEDS: HYDROmorphone INJ 0.5 MG/0.5 ML SYR IV PRN ×2 (03:17→21:01)
[2022-03-21 05:33] LABS: Hematocrit (blood only) 23.9 % (34.1-44.9); Hemoglobin 8.2 g/dl (12.0-16.0); Mean Corpuscular Hemoglobin 28.9 pg (25.0-34.0); Mean Corpuscular Hgb Conc 34.3 g/dL (32.0-36.0); Mean Corpuscular Volume 84.2 fL (80.0-100.0); Mean Platelet Volume 10.4 fL (9.4-12.3); Platelet Count 14 K/uL (130-400); RDW Coefficient of Variation 13.6 % (11.5-14.5); RDW Standard Deviation 42.2 fL (36.4-46.3); Red Blood Count 2.84 M/uL (3.93-5.22); White Blood Count 0.52 K/ul (4.8-10.8)
[2022-03-21 05:40] LABS: BUN Creatinine Ratio 31.2 (10-20); Calcium 8.5 mg/dl (8.5-10.1); Creatinine Clr Calc Pharmacy 57.1 ml/min; Est GFR (African American) 68.5 ml/min; Est GFR (Non-African American) 59.1 ml/min; Phosphorus 3.1 mg/dl (2.5-4.9); Potassium 3.8 mmol/L (3.5-5.1)
[2022-03-21] MEDS: oxyCODONE HCL IR 5 MG TAB (IMMEDIATE RELEASE) PO PRN ×3 (06:01→17:51)
[2022-03-21 06:09] LABS: Lymphocytes # (auto) 0.46 K/uL (1.2-3.4); Lymphocytes % (auto) 88.5 %; Monocytes # (auto) 0.02 K/uL (0.24-0.82); Monocytes % (auto) 3.8 %; Neutrophils # (auto) 0.04 K/uL (1.4-6.5); Neutrophils % (auto) 7.7 %
[2022-03-21] MEDS: CIMETIDINE 400 MG PO SCH ×2 (07:43→21:02)
[2022-03-21] MEDS: METAXALONE 800 MG TABLET PO SCH ×2 (07:43→21:03)
[2022-03-21] MEDS: busPIRone 5 MG TAB PO SCH ×3 (07:43→21:03)
[2022-03-21] MEDS: predniSONE 5 MG TAB PO SCH (07:44)
[2022-03-21] MEDS: PANTOprazole 40 MG TAB PO SCH ×2 (07:44→21:03)
[2022-03-21] MEDS: AMIODARONE 200 MG TAB PO SCH (07:44)
[2022-03-21] MEDS: MEMANTINE HCL 5 MG TAB PO SCH ×2 (07:44→16:56)
[2022-03-21] MEDS: METOPROLOL SUCC 25MG EXT REL TAB PO SCH (07:45)
[2022-03-21] MEDS ORDERED: POTASSIUM CHLORIDE CRTAB 20 MEQ TABCR PO STA (08:09)
--- NOTE | 2022-03-21 10:34 | Cardiology Progress Note ---
Date of Service March 21, 2022 Assessment & Plan (1) Cardiac arrest: (2) Torsades de pointes: (3) Cardiomyopathy: (4) S/P AVR (aortic valve replacement): (5) Sepsis due to Gram negative bacteria: (6) Sepsis, Gram positive: (7) Pancytopenia: (8) Immunosuppressed status: (9) Kidney transplant recipient: Plan Continue pacemaker support with a base rate of 100 bpm to prevent recurrent torsades. Replete electrolytes as indicated. Maintain serum potassium greater than 4.0. Consider reducing pacemaker rate over the weekend pending clinical course. 2D transthoracic echocardiogram without evidence of vegetation, however, transesophageal echocardiogram may be considered if patient's clinical status improves during hospitalization versus possible 6-week course of antibiotics given the patient's severe bacteremia and history of AVR tolerated addition of metoprolol will change pacer to default settings today Admission and Anticipated Discharge Date Admission Date: March 14, 2022 Subjective Pt seen and examined. Chart reviewed. Telemetry reviewed. Tolerated addition of metoprolol. Review of Systems Review of Systems: All systems reviewed & are unremarkable except as noted in HPI & below Physical Exam Physical Exam: General: Awake but intubated no acute distress. HEENT: Normocephalic, atraumatic. Pupils equal, round and reactive to light and accommodation. Extraocular muscles are intact. Anicteric sclera. Moist mucous membranes. Neck: No JVD. No bruit. Cardiovascular: Regular. Positive S-4. Normal S-1 and S-2. No S-3. No murmurs or rubs. Pulmonary: Clear to auscultation B/L. No rales, rhonchi or wheezing Abdomen: Bowel sounds x 4, soft. No rebound, guarding or tenderness. No organomegaly. Extremities: No clubbing, cyanosis or edema. +2 pedal pulses bilaterally. Skin: Warm and dry. Results & Data ([facility]) Vital Signs (Past 12 Hours) Vital Signs Temp Pulse Pulse Resp BP BP Pulse Ox 03/21/22 08:00 03/21/22 08:00 99 H 03/21/22 10:06 36.7 C 95 03/21/22 03:41 36.8 C 112 H 23 108/74 94 03/21/22 00:00 121 H 03/21/22 01:21 37 C 120 H 22 110/80 96 03/20/22 23:56 37 C 119 H 24 101/71 93 O2 Del Method 03/21/22 08:00 Room Air 03/21/22 08:00 03/21/22 10:06 Room Air 03/21/22 03:41 Room Air 03/21/22 00:00 03/21/22 01:21 03/20/22 23:56 Room Air
[2022-03-21] MEDS: FIRST - Mouthwash BLM 119 ML PO PRN ×2 (12:11→21:01)
[2022-03-21] MEDS ORDERED: MAGNESIUM SULFATE / D5W 1 GM/100 ML BAG IV ONE (15:00)
--- NOTE | 2022-03-21 17:18 | Hospitalist Progress Note ---
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 Hold Cyclosporine given her severe pancytopenia Plan Severe pancytopenia -recent bone marrow biopsy at [facility] [place] showed hypocellular marrow. Believed to be due to Covid 19 infection -S/p 4 units pRBC and 7 units platelet this admission -Discussed with Dr Clemons, patient's oncologist today, will continue to transfuse her as needed. Platelet goal >10K and Hb>7. Uncertain if her bone marrow will fully recover. In the future, she will need antibacterial and antifungal prophylaxis to prevent reinfection with her severe neutropenia--> will discuss with ID Aspiration Pneumonia E coli Bacteremia E coli UTI -Initially on Cefepime (03/15) then broadened to Cefepime and Flagyl (03/16). ID consulted, recommend Daptomycin and Meropenem pending final blood culture results. Daptomycin now discontinued. Meropenem switched to Cefepime and Flagyl. -TTE results noted, no vegetations seen -repeat blood cultures negative so far but patient remains febrile -History of bioprosthetic aortic valve and PPM -Will discuss case with ID regarding further antibiotic recommendations VDRF -extubated 03/18/22 Vfib Arrest Torsades -TTE shows EF 25-30% with possible takotsubo cardiomyopathy vs multivessel ischemic cardiomyopathy -Cardiology consulted, appreciate input. Amiodarone drip discontinued, started amiodarone 400mg daily and Metoprolol 12.5mg daily Septic Shock -Required pressor support now weaned off History of renal transplant -continue Prednisone 5mg daily. Cyclosporine currently on hold. Management per Nephrology History of Lymphoma -last had chemotherapy Jan 2022. Sees Dr Clemons of [facility] Insomnia -Patient adamant that her ambien be resumed DVT ppx SCD Admission and Anticipated Discharge Date Admission Date: March 14, 2022 Subjective Febrile yesterday evening but no further fevers today Feels very tired, does not want her parra catheter removed because she didn't sleep well. Upset that her ambien got discontinued Physical Exam Physical Exam: weak, deconditioned, non toxic Respiratory: wet cough, no wheezing Cardiovascular: tachycardic, no murmurs/rubs/gallops Gastrointestinal (Abdomen): soft, non tender Musculoskeletal: No edema Results & Data Results & Data ([facility]) Vital Signs (Past 12 Hours) Vital Signs Temp Pulse Resp BP Pulse Ox O2 Del Method 03/21/22 11:35 112 H 27 H 93/68 L 92 03/21/22 11:00 118 H 23 03/21/22 10:00 97 H 26 H 03/21/22 09:00 102 H 32 H 03/21/22 08:00 92 H 26 H 03/21/22 07:40 107/77 96 Room Air 03/21/22 07:40 98 H 28 H 03/21/22 07:00 93 H 29 H 03/21/22 11:41 36.9 C 03/21/22 08:00 Room Air 03/21/22 08:00 99 H 03/21/22 07:06 36.7 C 95 Room Air
[2022-03-21] MEDS: ZOLPIDEM TARTRATE 10 MG TAB PO PRN (21:01)
[2022-03-22] MEDS: CEFEPIME 2,000 MG in SYRINGE 0 ML IV SCH ×3 (02:52→20:21)
[2022-03-22] MEDS: metroNIDAZOLE 500 MG/100 ML BAG IV SCH ×3 (02:52→17:26)
[2022-03-22 05:36] LABS: BUN Creatinine Ratio 27.6 (10-20); Calcium 8.2 mg/dl (8.5-10.1); Creatinine Clr Calc Pharmacy 49.6 ml/min; Est GFR (Non-African American) 49.2 ml/min; Magnesium 1.8 mg/dl (1.7-2.4); Phosphorus 2.3 mg/dl (2.5-4.9); Potassium 3.9 mmol/L (3.5-5.1)
[2022-03-22 06:18] LABS: Hematocrit (blood only) 21.5 % (34.1-44.9); Hemoglobin 7.2 g/dl (12.0-16.0); Mean Corpuscular Hemoglobin 28.6 pg (25.0-34.0); Mean Corpuscular Hgb Conc 33.5 g/dL (32.0-36.0); Mean Corpuscular Volume 85.3 fL (80.0-100.0); Mean Platelet Volume 12.7 fL (9.4-12.3); Platelet Count 5 K/uL (130-400); RBC Morphology Unremarkable; RDW Coefficient of Variation 13.5 % (11.5-14.5); RDW Standard Deviation 41.9 fL (36.4-46.3); Red Blood Count 2.52 M/uL (3.93-5.22); White Blood Count 0.59 K/ul (4.8-10.8)
[2022-03-22 06:19] LABS: Lymphocytes # (auto) 0.53 K/uL (1.2-3.4); Lymphocytes % (auto) 89.8 %; Monocytes # (auto) 0.01 K/uL (0.24-0.82); Monocytes % (auto) 1.7 %; Neutrophils # (auto) 0.05 K/uL (1.4-6.5); Neutrophils % (auto) 8.5 %
[2022-03-22] MEDS: MEMANTINE HCL 5 MG TAB PO SCH ×2 (08:30→17:25)
[2022-03-22] MEDS: AMIODARONE 200 MG TAB PO SCH (08:30)
[2022-03-22] MEDS: busPIRone 5 MG TAB PO SCH ×3 (08:32→20:18)
[2022-03-22] MEDS: METAXALONE 800 MG TABLET PO SCH ×2 (08:33→20:18)
[2022-03-22] MEDS: METOPROLOL SUCC 25MG EXT REL TAB PO SCH (08:33)
[2022-03-22] MEDS: CIMETIDINE 400 MG PO SCH ×2 (08:33→20:19)
[2022-03-22] MEDS: predniSONE 5 MG TAB PO SCH (08:34)
[2022-03-22] MEDS: PANTOprazole 40 MG TAB PO SCH ×2 (08:34→20:18)
[2022-03-22] MEDS: oxyCODONE HCL IR 5 MG TAB (IMMEDIATE RELEASE) PO PRN ×3 (09:05→22:41)
[2022-03-22] MEDS ORDERED: POTASSIUM PHOS 3 MMOL/1 ML INFUSION IV STA (09:16)
--- NOTE | 2022-03-22 09:21 | Cardiology Progress Note ---
Date of Service March 22, 2022 Assessment & Plan (1) Cardiac arrest: (2) Torsades de pointes: (3) Cardiomyopathy: (4) S/P AVR (aortic valve replacement): (5) Sepsis due to Gram negative bacteria: (6) Sepsis, Gram positive: (7) Pancytopenia: (8) Immunosuppressed status: (9) Kidney transplant recipient: Plan pacer rate changed on 03/21/22 to a base rate of 80 previously at 100bpm to prevent R on T given presentation of Torsades low dose beta kristi added but hypotension will prevent further uptitration at this time she is in sinus tach which, undoubtedly is worsened by her anemia recommend maintaining Hgb at 10 or above given recent arrhythmias Admission and Anticipated Discharge Date Admission Date: March 14, 2022 Subjective Pt seen and examined. Chart reviewed. Telemetry reviewed. Review of Systems Review of Systems: All systems reviewed & are unremarkable except as noted in HPI & below Physical Exam Physical Exam: General: Awake, alert and oriented x 3. No acute distress. HEENT: Normocephalic, atraumatic. Pupils equal, round and reactive to light and accommodation. Extraocular muscles are intact. Anicteric sclera. Moist mucous membranes. Neck: No JVD. No bruit. Cardiovascular: Regular. Positive S-4. Normal S-1 and S-2. No S-3. No murmurs or rubs. Pulmonary: Clear to auscultation B/L. No rales, rhonchi or wheezing Abdomen: Bowel sounds x 4, soft. No rebound, guarding or tenderness. No organomegaly. Extremities: No clubbing, cyanosis or edema. +2 pedal pulses bilaterally. Skin: Warm and dry. Results & Data ([facility]) Vital Signs (Past 12 Hours) Vital Signs Temp Pulse Pulse Resp BP Pulse Ox O2 Del Method 03/22/22 03:00 37.3 C 111 H 26 H 100/76 94 Nasal Cannula 03/22/22 00:00 118 H 03/22/22 00:00 37.8 C H 108 H 24 103/74 94 Room Air O2 Flow Rate 03/22/22 03:00 2 03/22/22 00:00 03/22/22 00:00
[2022-03-22] MEDS ORDERED: POTASSIUM PHOSPHATE 9 MMOL in SODIUM CHLORIDE 0.9% 250 ML IV ONE (09:30)
[2022-03-22] MEDS: traMADol HCL 50 MG TABLET PO PRN (12:32)
[2022-03-22] MEDS ORDERED: SODIUM CHLORIDE 0.9% 250 ML IV PRN (14:13)
[2022-03-22] MEDS: ACETAMINOPHEN 325 MG TAB PO PRN (15:22)
--- NOTE | 2022-03-22 17:03 | Hospitalist Progress Note ---
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 Hold Cyclosporine given her severe pancytopenia Plan Severe pancytopenia -recent bone marrow biopsy at [facility] [place] showed hypocellular marrow. Believed to be due to Covid 19 infection -S/p 4 units pRBC and 7 units platelet this admission -Discussed with Dr Clemons, patient's oncologist today, will continue to transfuse her as needed. Platelet goal >10K and Hb>8. Uncertain if her bone marrow will fully recover. In the future, she will need antibacterial and antifungal prophylaxis to prevent reinfection with her severe neutropenia Will transfused 1 unit PRBC and 2 unit platelet today Aspiration Pneumonia E coli Bacteremia E coli UTI -Initially on Cefepime (03/15) then broadened to Cefepime and Flagyl (03/16). ID consulted, recommend Daptomycin and Meropenem pending final blood culture results. Daptomycin now discontinued. Meropenem switched to Cefepime and Flagyl. -TTE results noted, no vegetations seen -repeat blood cultures negative so far but patient remains febrile -History of bioprosthetic aortic valve and PPM -Reached to ID regarding further antibiotic recommendations VDRF -extubated 03/18/22 Vfib Arrest Torsades -TTE shows EF 25-30% with possible takotsubo cardiomyopathy vs multivessel ischemic cardiomyopathy -Cardiology consulted, appreciate input. Amiodarone drip discontinued - Continue amiodarone 400mg daily and Metoprolol 12.5mg daily Septic Shock -Required pressor support now weaned off History of renal transplant -continue Prednisone 5mg daily. Cyclosporine currently on hold. Management per Nephrology History of Lymphoma -last had chemotherapy Jan 2022. Sees Dr Clemons of [facility] Insomnia -Patient adamant that her ambien be resumed DVT ppx SCD Code status Full code Admission and Anticipated Discharge Date Admission Date: March 14, 2022 Subjective Pt was seen and examined for follow up Lying in bed with mother at bedside Pt said that she feels better today She said that her diet was advanced today Denies any chest pain, palpitation, dizziness and SOB Review of Systems Review of Systems: All systems reviewed & are unremarkable except as noted in Subjective Physical Exam Physical Exam: General- No acute distress Head- atraumatic Eyes- PERRL, EOMI, ENT- oropharynx clear Neck- supple, no JVD Lungs- clear to auscultation Heart- regular rhythm; no murmur Abdomen- normal bowel sounds, soft, nontender Extremities- no calf tenderness Neuro- alert, oriented x 3; PERRL, EOMI; no facial palsy; no dysarthria Skin- warm & dry Results & Data Results & Data ([facility]) Vital Signs (Past 12 Hours) Vital Signs Temp Pulse Resp BP Pulse Ox O2 Del Method 03/22/22 16:51 36.4 C L 95 H 20 100/68 95 03/22/22 16:20 36.8 C 107 H 26 H 90/64 L 91 03/22/22 16:00 109 H 03/22/22 15:20 37.2 C 96 H 25 H 93/59 L 94 03/22/22 14:50 37.8 C H 102 H 30 H 103/62 91 03/22/22 14:35 37.7 C H 102 H 24 92/55 L 95 03/22/22 14:19 36.8 C 111 H 20 83/61 L 95 03/22/22 14:02 36.8 C 97 H 24 83/61 L 95 03/22/22 13:49 36.8 C 114 H 20 100/65 95 03/22/22 11:49 37.0 C 110 H 20 98/69 L 95 03/22/22 12:49 37.8 C H 111 H 28 H 99/59 L 94 03/22/22 08:00 93 H 03/22/22 11:04 Room Air 03/22/22 10:49 37.6 C H 117 H 30 H 89/68 L 94 03/22/22 10:19 37.1 C 120 H 32 H 91/72 L 93 03/22/22 10:04 37.0 C 113 H 29 H 96/68 L 93 03/22/22 09:45 37.1 C 115 H 30 H 104/66 94
[2022-03-22] MEDS: HYDROmorphone INJ 0.5 MG/0.5 ML SYR IV PRN (17:24)
[2022-03-23] MEDS: metroNIDAZOLE 500 MG/100 ML BAG IV SCH ×3 (01:28→17:50)
[2022-03-23] MEDS: ZOLPIDEM TARTRATE 10 MG TAB PO PRN ×2 (01:28→22:57)
[2022-03-23 06:30] LABS: Est GFR (African American) 58.1 ml/min; Potassium 3.6 mmol/L (3.5-5.1)
[2022-03-23 06:31] LABS: BUN Creatinine Ratio 30.4 (10-20); Calcium 8.2 mg/dl (8.5-10.1); Creatinine Clr Calc Pharmacy 50.1 ml/min; Est GFR (Non-African American) 50.1 ml/min; Phosphorus 2.6 mg/dl (2.5-4.9)
[2022-03-23 06:33] LABS: Hematocrit (blood only) 23.3 % (34.1-44.9); Mean Corpuscular Hemoglobin 27.1 pg (25.0-34.0); Mean Corpuscular Hgb Conc 34.3 g/dL (32.0-36.0); Mean Platelet Volume 9.9 fL (9.4-12.3); Platelet Count 19 K/uL (130-400); RDW Coefficient of Variation 17.4 % (11.5-14.5); RDW Standard Deviation 49.7 fL (36.4-46.3); Red Blood Count 2.95 M/uL (3.93-5.22); White Blood Count 0.45 K/ul (4.8-10.8)
[2022-03-23] MEDS: oxyCODONE HCL IR 5 MG TAB (IMMEDIATE RELEASE) PO PRN ×3 (07:44→22:57)
[2022-03-23] MEDS: busPIRone 5 MG TAB PO SCH ×3 (08:18→21:59)
[2022-03-23] MEDS: PANTOprazole 40 MG TAB PO SCH ×2 (08:19→21:57)
[2022-03-23] MEDS: METOPROLOL SUCC 25MG EXT REL TAB PO SCH (08:19)
[2022-03-23] MEDS: METAXALONE 800 MG TABLET PO SCH ×2 (08:19→21:56)
[2022-03-23] MEDS: MEMANTINE HCL 5 MG TAB PO SCH ×2 (08:19→16:45)
[2022-03-23] MEDS: predniSONE 5 MG TAB PO SCH (08:20)
[2022-03-23] MEDS: AMIODARONE 200 MG TAB PO SCH (08:20)
[2022-03-23] MEDS: CIMETIDINE 400 MG PO SCH ×2 (08:21→21:58)
[2022-03-23] MEDS: CEFEPIME 2,000 MG in SYRINGE 0 ML IV SCH ×2 (08:22→21:55)
--- NOTE | 2022-03-23 10:00 | Cardiology Progress Note ---
Date of Service March 23, 2022 Assessment & Plan (1) Cardiac arrest: (2) Torsades de pointes: (3) Cardiomyopathy: (4) S/P AVR (aortic valve replacement): (5) Sepsis due to Gram negative bacteria: (6) Sepsis, Gram positive: (7) Pancytopenia: (8) Immunosuppressed status: (9) Kidney transplant recipient: Plan pacer rate changed on 03/21/22 to a base rate of 80 previously at 100bpm to prevent R on T given presentation of Torsades low dose beta kristi added but hypotension will prevent further uptitration at this time, would uptitrate as bp allows she is in sinus tach which, undoubtedly is worsened by her anemia transfused 1 unit PRBC yesterday, with significant hemodynamic improvement recommend maintaining Hgb at 10 or above given recent arrhythmias would continue amio 400mg daily for now and decrease to 200mg daily upon discharge will sign off, please call with questions or concerns Admission and Anticipated Discharge Date Admission Date: March 14, 2022 Subjective Pt seen and examined. Chart reviewed. Telemetry reviewed. Review of Systems Review of Systems: All systems reviewed & are unremarkable except as noted in HPI & below Physical Exam Physical Exam: General: Awake, alert and oriented x 3. No acute distress. HEENT: Normocephalic, atraumatic. Pupils equal, round and reactive to light and accommodation. Extraocular muscles are intact. Anicteric sclera. Moist mucous membranes. Neck: No JVD. No bruit. Cardiovascular: Regular. Positive S-4. Normal S-1 and S-2. No S-3. No murmurs or rubs. Pulmonary: Clear to auscultation B/L. No rales, rhonchi or wheezing Abdomen: Bowel sounds x 4, soft. No rebound, guarding or tenderness. No organomegaly. Extremities: No clubbing, cyanosis or edema. +2 pedal pulses bilaterally. Skin: Warm and dry. Results & Data ([facility]) Vital Signs (Past 12 Hours) Vital Signs Temp Pulse Pulse Resp BP Pulse Ox O2 Del Method 03/23/22 09:32 Room Air 03/23/22 02:36 37.2 C 112 H 18 111/82 94 Room Air 03/23/22 00:00 103 H 03/22/22 22:48 36.9 C 102 H 20 115/89 96 Room Air
[2022-03-23] MEDS: FIRST - Mouthwash BLM 119 ML PO PRN ×2 (12:46→22:58)
--- NOTE | 2022-03-23 17:26 | Hospitalist Progress Note ---
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 Hold Cyclosporine given her severe pancytopenia Plan Severe pancytopenia -recent bone marrow biopsy at [facility] [place] [place] showed hypocellular marrow. Believed to be due to Covid 19 infection -S/p 5 units pRBC and 9 units platelet this admission -Case discussed with oncology Dr. Clemons that recommend to keep hemoglobin between 7-8 and platelet goal >10K Uncertain if her bone marrow will fully recover. In the future, she will need antibacterial and antifungal prophylaxis to prevent reinfection with her severe neutropenia Continue monitor CBC Aspiration Pneumonia E coli Bacteremia E coli UTI -Initially on Cefepime (03/15) then broadened to Cefepime and Flagyl (03/16). ID consulted, recommend Daptomycin and Meropenem pending final blood culture results. Daptomycin now discontinued. Meropenem switched to Cefepime and Flagyl. -TTE results noted, no vegetations seen -repeat blood cultures negative so far but patient remains febrile -History of bioprosthetic aortic valve and PPM -Reached to ID regarding further antibiotic recommendations-waiting for call back VDRF -extubated 03/18/22 Vfib Arrest Torsades -TTE shows EF 25-30% with possible takotsubo cardiomyopathy vs multivessel ischemic cardiomyopathy -Cardiology consulted, appreciate input. Amiodarone drip discontinued - Continue amiodarone 400mg daily and Metoprolol 12.5mg daily Septic Shock -Required pressor support now weaned off History of renal transplant -continue Prednisone 5mg daily. Cyclosporine currently on hold. Management per Nephrology History of Lymphoma -last had chemotherapy Jan 2022. Sees Dr Clemons of [facility] On[facility] Insomnia -Patient adamant that her ambien be resumed DVT ppx SCD Code status Full code Admission and Anticipated Discharge Date Admission Date: March 14, 2022 Subjective Patient was seen and evaluated for follow-up Lying in bed with no acute distress Pt said that she feels better today She said that she walked with therapy today and spent most of the day sitting in the chair Denies any chest pain, palpitation, dizziness and SOB Review of Systems Review of Systems: All systems reviewed & are unremarkable except as noted in Subjective Physical Exam Physical Exam: General- No acute distress Head- atraumatic Eyes- PERRL, EOMI, ENT- oropharynx clear Neck- supple, no JVD Lungs- clear to auscultation Heart- regular rhythm; no murmur Abdomen- normal bowel sounds, soft, nontender Extremities- no calf tenderness Neuro- alert, oriented x 3; PERRL, EOMI; no facial palsy; no dysarthria Skin- warm & dry Results & Data Results & Data ([facility]) Vital Signs (Past 12 Hours) Vital Signs Temp Pulse Resp BP Pulse Ox O2 Del Method 03/23/22 15:58 36.8 C 106 H 24 108/73 93 Room Air 03/23/22 15:56 94 03/23/22 12:00 37.0 C 113 H 25 H 109/71 92 Room Air 03/23/22 08:00 37.5 C 124 H 24 109/80 92 Room Air 03/23/22 09:32 Room Air
[2022-03-23] MEDS: traMADol HCL 50 MG TABLET PO PRN (17:55)
[2022-03-24] MEDS: metroNIDAZOLE 500 MG/100 ML BAG IV SCH ×3 (02:42→17:42)
[2022-03-24 05:36] LABS: Hematocrit (blood only) 21.3 % (34.1-44.9); Hemoglobin 7.6 g/dl (12.0-16.0); Mean Corpuscular Hemoglobin 27.9 pg (25.0-34.0); Mean Corpuscular Hgb Conc 35.7 g/dL (32.0-36.0); Mean Corpuscular Volume 78.3 fL (80.0-100.0); Platelet Count 5 K/uL (130-400); Platelet Estimate Signific. Decreased (Normal); RDW Coefficient of Variation 18.4 % (11.5-14.5); RDW Standard Deviation 52.1 fL (36.4-46.3); Red Blood Count 2.72 M/uL (3.93-5.22); White Blood Count 0.64 K/ul (4.8-10.8)
[2022-03-24 05:41] LABS: Calcium 8.3 mg/dl (8.5-10.1); Creatinine Clr Calc Pharmacy 44.7 ml/min; Est GFR (African American) 50.6 ml/min; Est GFR (Non-African American) 43.7 ml/min; Potassium 3.5 mmol/L (3.5-5.1)
[2022-03-24] MEDS: CIMETIDINE 400 MG PO SCH ×2 (08:14→20:41)
[2022-03-24] MEDS: busPIRone 5 MG TAB PO SCH ×3 (08:14→20:40)
[2022-03-24] MEDS: MEMANTINE HCL 5 MG TAB PO SCH ×2 (08:14→16:42)
[2022-03-24] MEDS: predniSONE 5 MG TAB PO SCH (08:14)
[2022-03-24] MEDS: CEFEPIME 2,000 MG in SYRINGE 0 ML IV SCH ×2 (08:14→20:37)
[2022-03-24] MEDS: AMIODARONE 200 MG TAB PO SCH (08:15)
[2022-03-24] MEDS: METOPROLOL SUCC 25MG EXT REL TAB PO SCH ×3 (08:15→20:40)
[2022-03-24] MEDS: METAXALONE 800 MG TABLET PO SCH ×2 (08:15→20:39)
[2022-03-24] MEDS: PANTOprazole 40 MG TAB PO SCH ×2 (08:15→20:39)
[2022-03-24] MEDS: oxyCODONE HCL IR 5 MG TAB (IMMEDIATE RELEASE) PO PRN ×3 (10:24→23:37)
[2022-03-24] MEDS ORDERED: POTASSIUM PHOS 3 MMOL/1 ML INFUSION IV STA (11:26)
--- NOTE | 2022-03-24 11:45 | Cardiology Progress Note ---
Date of Service March 24, 2022 Assessment & Plan Plan Complex 51-year-old female admitted with acute sepsis complicated by torsade and cardiac arrest. Slowly improving but ongoing issues with pancytopenia Plan: Increase metoprolol succinate to 12.5 mg 3 times daily for further heart rate control. Pacemaker functioning appropriately. Expect extended antibiotic therapy will be warranted. Consider RDAHA once hematologic disorder and hemodynamics improved Admission and Anticipated Discharge Date Admission Date: March 14, 2022 Subjective Patient seen and examined, chart and telemetry reviewed Blood pressure slightly improved. Still tachycardic with intermittent multifocal atrial tachycardia. Results & Data ([facility]) Vital Signs (Past 12 Hours) Vital Signs Temp Pulse Pulse Pulse Resp BP Pulse Ox 03/24/22 08:00 115 H 03/24/22 09:13 03/24/22 07:27 36.8 C 105 H 24 112/83 93 03/24/22 04:46 37.7 C H 112 H 26 H 111/78 94 03/24/22 00:00 119 H O2 Del Method 03/24/22 08:00 03/24/22 09:13 Room Air 03/24/22 07:27 Room Air 03/24/22 04:46 Room Air 03/24/22 00:00
--- NOTE | 2022-03-24 11:56 | Cardiology Progress Note ---
Date of Service March 24, 2022 Assessment & Plan (1) Cardiac arrest: (2) Torsades de pointes: (3) Cardiomyopathy: (4) S/P AVR (aortic valve replacement): (5) Sepsis due to Gram negative bacteria: (6) Sepsis, Gram positive: (7) Pancytopenia: (8) Immunosuppressed status: (9) Kidney transplant recipient: Plan Complex 51-year-old female with valvular heart disease admitted with acute sepsis complicated by torsade and cardiac arrest. Slowly improving but ongoing issues with pancytopenia, anemia Plan: Increase metoprolol succinate to 12.5 mg 3 times daily for further heart rate control. Pacemaker functioning appropriately. Expect extended antibiotic therapy will be warranted. Consider RADHA once hematologic disorder and hemodynamics improved Supplement potassium to greater than 4 Admission and Anticipated Discharge Date Admission Date: March 14, 2022 Subjective Patient was seen and examined, chart, medications telemetry reviewed. Blood pressures continue to slowly improved. Still tachycardic with intermittent multifocal atrial tachycardia. No further ventricular arrhythmia Physical Exam Constitutional: + ill appearing and cooperative Eyes: PERRL, conjunctivae normal, anicteric sclerae Neck: trachea midline, no thyromegaly Cardiovascular: Rate/Rhythm: regular rate and + tachycardic Heart Sounds: + murmur (Grade 2/6 systolic, no diastolic) Extremities: + edema (Trace) Gastrointestinal (Abdomen): normal bowel sounds, soft, nontender, no hepatosplenomegaly Results & Data ([facility]) Vital Signs (Past 12 Hours) Vital Signs Temp Pulse Pulse Pulse Resp BP Pulse Ox 03/24/22 08:00 115 H 03/24/22 09:13 03/24/22 07:27 36.8 C 105 H 24 112/83 93 03/24/22 04:46 37.7 C H 112 H 26 H 111/78 94 03/24/22 00:00 119 H O2 Del Method 03/24/22 08:00 03/24/22 09:13 Room Air 03/24/22 07:27 Room Air 03/24/22 04:46 Room Air 03/24/22 00:00 Laboratory Results Laboratory Results - last 24 hr 03/24/22 03/24/22 04:40 04:40 WBC 0.64 L* RBC 2.72 L Hgb 7.6 L Hct 21.3 L MCV 78.3 L MCH 27.9 MCHC 35.7 RDW Std Deviation 52.1 H RDW Coeff of Delia 18.4 H Plt Count 5 L* D Platelet Estimate Signific. Decreased L Sodium 133 L Potassium 3.5 Chloride 105 Carbon Dioxide 20 L Anion Gap 8 BUN 35 H Creatinine 1.40 H Est Cr Clr Drug Dosing 44.7 Est GFR ( Amer) 50.6 Est GFR (Non-Af Amer) 43.7 BUN/Creatinine Ratio 25.0 H Glucose 86 Calcium 8.3 L Phosphorus 2.0 L
[2022-03-24] MEDS ORDERED: POTASSIUM PHOSPHATE 15 MMOL in SODIUM CHLORIDE 0.9% 250 ML IV ONE (12:00)
[2022-03-24] MEDS: ACETAMINOPHEN 325 MG TAB PO PRN ×2 (13:34→22:20)
--- NOTE | 2022-03-24 17:34 | Hospitalist Progress Note ---
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 Hold Cyclosporine given her severe pancytopenia Plan Severe pancytopenia -recent bone marrow biopsy at [facility] [place] showed hypocellular marrow. Believed to be due to Covid 19 infection - 1 unit platelet transfuse today -S/p 6 units pRBC and 9 units platelet this admission -Case discussed with oncology Dr. Clemons that recommend to keep hemoglobin between 7-8 and platelet goal >10K Uncertain if her bone marrow will fully recover. In the future, she will need antibacterial and antifungal prophylaxis to prevent reinfection with her severe neutropenia Continue monitor CBC Aspiration Pneumonia E coli Bacteremia E coli UTI -Initially on Cefepime (03/15) then broadened to Cefepime and Flagyl (03/16). ID consulted, recommend Daptomycin and Meropenem pending final blood culture results. Daptomycin now discontinued. Meropenem switched to Cefepime and Flagyl. -TTE results noted, no vegetations seen -repeat blood cultures negative so far but patient remains febrile -History of bioprosthetic aortic valve and PPM -Case discussed with ID recommended To continue IV cefepime for 14 days for now ; then if patient continues to be neutropenic will need to continue antibiotic VDRF -extubated 03/18/22 Vfib Arrest Torsades -TTE shows EF 25-30% with possible takotsubo cardiomyopathy vs multivessel isch emic cardiomyopathy -Cardiology consulted, appreciate input. Amiodarone drip discontinued - Continue amiodarone 400mg daily and Metoprolol 12.5mg daily Septic Shock -Required pressor support now weaned off History of renal transplant -continue Prednisone 5mg daily. Cyclosporine currently on hold. Management per Nephrology History of Lymphoma -last had chemotherapy Jan 2022. Sees Dr Clemons of [facility] Oncology Insomnia -Patient adamant that her ambien be resumed DVT ppx SCD Code status Full code Admission and Anticipated Discharge Date Admission Date: March 14, 2022 Subjective Patient was seen and evaluated for follow-up Lying in bed with no acute distress Patient said she felt much better today Platelet and hemoglobin continued to drop She said her strength starting to get better Denies any chest pain, palpitation, dizziness, shortness of breath. Review of Systems Review of Systems: All systems reviewed & are unremarkable except as noted in Subjective Physical Exam Physical Exam: General- No acute distress Head- atraumatic Eyes- PERRL, EOMI, ENT- oropharynx clear Neck- supple, no JVD Lungs- clear to auscultation Heart- regular rhythm; no murmur Abdomen- normal bowel sounds, soft, nontender Extremities- no calf tenderness Neuro- alert, oriented x 3; PERRL, EOMI; no facial palsy; no dysarthria Skin- warm & dry Results & Data Results & Data ([facility]) Vital Signs (Past 12 Hours) Vital Signs Temp Pulse Pulse Pulse Resp BP BP 03/24/22 15:29 37 C 109 H 26 H 94/61 L 03/24/22 14:53 37.3 C 106 H 17 102/72 03/24/22 14:06 36.7 C 104 H 24 95/62 L 03/24/22 13:36 36.9 C 112 H 30 H 96/67 L 03/24/22 13:21 37.9 C H 108 H 24 97/66 L 03/24/22 13:06 37.3 C 108 H 29 H 102/65 03/24/22 08:00 115 H 03/24/22 09:13 03/24/22 07:27 36.8 C 105 H 24 112/83 Pulse Ox O2 Del Method 03/24/22 15:29 93 03/24/22 14:53 93 Room Air 03/24/22 14:06 93 Room Air 03/24/22 13:36 95 Room Air 03/24/22 13:21 96 Room Air 03/24/22 13:06 96 Room Air 03/24/22 08:00 03/24/22 09:13 Room Air 03/24/22 07:27 93 Room Air
[2022-03-24] MEDS: traMADol HCL 50 MG TABLET PO PRN (20:37)
[2022-03-24] MEDS: FIRST - Mouthwash BLM 119 ML PO PRN (23:20)
[2022-03-24] MEDS: ZOLPIDEM TARTRATE 10 MG TAB PO PRN (23:37)
[2022-03-25] MEDS: metroNIDAZOLE 500 MG/100 ML BAG IV SCH ×3 (03:05→18:03)
[2022-03-25] MEDS: ACETAMINOPHEN 325 MG TAB PO PRN ×4 (05:21→23:24)
[2022-03-25] MEDS ORDERED: ALBUMIN 25% 100 mL 25 GM/100 ML VIAL IV ONE (05:23)
[2022-03-25] MEDS ORDERED: MAGNESIUM SULFATE / D5W 1 GM/100 ML BAG IV ONE ×2 (05:26→19:15)
[2022-03-25 06:41] LABS: Mean Corpuscular Hemoglobin 27.2 pg (25.0-34.0); Mean Corpuscular Hgb Conc 34.5 g/dL (32.0-36.0); Mean Corpuscular Volume 78.9 fL (80.0-100.0); Mean Platelet Volume 11.2 fL (9.4-12.3); Platelet Count 13 K/uL (130-400); RDW Coefficient of Variation 17.8 % (11.5-14.5); RDW Standard Deviation 51.5 fL (36.4-46.3); Red Blood Count 2.61 M/uL (3.93-5.22); White Blood Count 0.68 K/ul (4.8-10.8)
[2022-03-25 07:00] LABS: Hematocrit (blood only) 20.6 % (34.1-44.9); Hemoglobin 7.1 g/dl (12.0-16.0)
[2022-03-25 07:04] LABS: Lymphocytes # (auto) 0.61 K/uL (1.2-3.4); Lymphocytes % (auto) 89.7 %; Monocytes # (auto) 0.01 K/uL (0.24-0.82); Monocytes % (auto) 1.5 %; Neutrophils # (auto) 0.06 K/uL (1.4-6.5); Neutrophils % (auto) 8.8 %
[2022-03-25 07:14] LABS: BUN Creatinine Ratio 27.3 (10-20); Creatinine Clr Calc Pharmacy 51.2 ml/min; Est GFR (African American) 56.4 ml/min; Est GFR (Non-African American) 48.7 ml/min; Phosphorus 2.9 mg/dl (2.5-4.9); Potassium 3.5 mmol/L (3.5-5.1)
[2022-03-25] MEDS: METAXALONE 800 MG TABLET PO SCH ×2 (08:29→20:27)
[2022-03-25] MEDS: PANTOprazole 40 MG TAB PO SCH ×2 (08:29→20:28)
[2022-03-25] MEDS: busPIRone 5 MG TAB PO SCH ×3 (08:29→20:26)
[2022-03-25] MEDS: MEMANTINE HCL 5 MG TAB PO SCH ×2 (08:29→16:09)
[2022-03-25] MEDS: CIMETIDINE 400 MG PO SCH ×2 (08:29→20:27)
[2022-03-25] MEDS: FIRST - Mouthwash BLM 119 ML PO PRN (08:29)
[2022-03-25] MEDS: predniSONE 5 MG TAB PO SCH (08:29)
[2022-03-25] MEDS: METOPROLOL SUCC 25MG EXT REL TAB PO SCH ×3 (08:30→20:29)
[2022-03-25] MEDS: AMIODARONE 200 MG TAB PO SCH (08:30)
[2022-03-25] MEDS: CEFEPIME 2,000 MG in SYRINGE 0 ML IV SCH ×2 (08:36→20:37)
[2022-03-25] MEDS: oxyCODONE HCL IR 5 MG TAB (IMMEDIATE RELEASE) PO PRN ×2 (08:36→14:19)
[2022-03-25] MEDS: traMADol HCL 50 MG TABLET PO PRN (08:38)
[2022-03-25] MEDS ORDERED: SODIUM CHLORIDE 0.9% 250 ML IV PRN (10:39)
--- NOTE | 2022-03-25 11:28 | Cardiology Progress Note ---
Date of Service March 25, 2022 Assessment & Plan (1) Cardiac arrest: (2) Torsades de pointes: (3) Cardiomyopathy: (4) S/P AVR (aortic valve replacement): (5) Sepsis due to Gram negative bacteria: (6) Sepsis, Gram positive: (7) Pancytopenia: (8) Immunosuppressed status: (9) Kidney transplant recipient: Plan Patient is a critically ill 51-year-old female who presented with pancytopenia and sepsis. Initial presentation complicated by torsade with cardiac arrest No cardiac arrhythmias currently Underlying aortic valve replacement present Now with recurrent fever and rigors 1. Cardiac arrhythmias. Continue beta-kristi with metoprolol succinate 12.5 mg 3 times daily for heart rate control. Pacemaker tracking atrium appropriately responding to acute illnesses and stress 2. Recurrent fevers. Blood cultures drawn. Would recommend chest x-ray, consider expansion of antibiotic therapies given extended hospitalization. Concerning presence of aortic valve prosthesis but currently not surgical candidate. Echocardiogram will be ordered in a.m. Admission and Anticipated Discharge Date Admission Date: March 14, 2022 Subjective Patient seen and examined, chart, medications, telemetry reviewed. Significantly febrile and chills with rigors overnight. Repeat blood cultures drawn patient remains pancytopenic No cardiac complaints. No arrhythmias but heart rate still elevated Did not receive metoprolol yesterday Physical Exam Constitutional: + ill appearing Eyes: PERRL, conjunctivae normal, anicteric sclerae ENMT: external ear and nose normal, oropharynx normal Neck: trachea midline, no thyromegaly Respiratory: + cough Auscultation: + rhonchi (Left base) Cardiovascular: Rate/Rhythm: regular rhythm and + tachycardic Heart Sounds: + murmur (Grade 2/6 systolic) Vessels: no JVD Extremities: no edema Results & Data ([facility]) Vital Signs (Past 12 Hours) Vital Signs Temp Pulse Pulse Pulse Resp BP Pulse Ox 03/25/22 10:28 38.9 C H 03/25/22 08:00 38.1 C H 110 H 16 100/63 95 03/25/22 07:28 122 H 03/25/22 05:51 38.4 C H 03/25/22 05:17 39.1 C H 03/25/22 03:05 37.8 C H 105 H 22 99/72 L 94 03/24/22 23:35 37.8 C H 123 H 22 107/76 95 O2 Del Method 03/25/22 10:28 03/25/22 08:00 Room Air 03/25/22 07:28 03/25/22 05:51 03/25/22 05:17 03/25/22 03:05 Room Air 03/24/22 23:35 Room Air Laboratory Results Laboratory Results - last 24 hr 03/22/22 03/25/22 03/25/22 15:11 05:57 05:57 WBC 0.68 L* RBC 2.61 L Hgb 7.1 L Hct 20.6 L* MCV 78.9 L MCH 27.2 MCHC 34.5 RDW Std Deviation 51.5 H RDW Coeff of Delia 17.8 H Plt Count 13 L* D MPV 11.2 Immature Gran % (Auto) 0.0 Neut % (Auto) 8.8 Lymph % (Auto) 89.7 [place] % (Auto) 1.5 Eos % (Auto) 0.0 Baso % (Auto) 0.0 Neut # (Auto) 0.06 L* Lymph # (Auto) 0.61 L [place] # (Auto) 0.01 L Eos # (Auto) 0.00 Baso # (Auto) 0.00 Immature Gran # (Auto) 0.00 Sodium 133 L Potassium 3.5 Chloride 106 Carbon Dioxide 19 L Anion Gap 8 BUN 35 H Creatinine 1.28 H Est Cr Clr Drug Dosing 51.2 Est GFR ( Amer) 56.4 Est GFR (Non-Af Amer) 48.7 BUN/Creatinine Ratio 27.3 H Glucose 88 Lactate Calcium 8.0 L Phosphorus 2.9 Magnesium Blood Type A Positive Antibody Screen NEGATIVE Crossmatch See Detail 03/25/22 03/25/22 03/25/22 05:57 06:15 10:51 WBC RBC Hgb Hct MCV MCH MCHC RDW Std Deviation RDW Coeff of Delia Plt Count MPV Immature Gran % (Auto) Neut % (Auto) Lymph % (Auto) [place] % (Auto) Eos % (Auto) Baso % (Auto) Neut # (Auto) Lymph # (Auto) [place] # (Auto) Eos # (Auto) Baso # (Auto) Immature Gran # (Auto) Sodium Potassium Chloride Carbon Dioxide Anion Gap BUN Creatinine Est Cr Clr Drug Dosing Est GFR ( Amer) Est GFR (Non-Af Amer) BUN/Creatinine Ratio Glucose Lactate 0.8 Calcium Phosphorus Magnesium 1.5 L Blood Type Pending Antibody Screen Pending Crossmatch See Detail
--- NOTE | 2022-03-25 15:17 | Hospitalist Progress Note ---
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 Hold Cyclosporine given her severe pancytopenia Plan Severe pancytopenia -recent bone marrow biopsy at [facility] showed hypocellular marrow. Believed to be due to Covid 19 infection -1 unit PRBC transfused today -S/p 7 units PRBC and 9 units platelet this admission -Case discussed with oncology Dr. Clemons that recommend to keep hemoglobin between 7-8 and platelet goal >10K Uncertain if her bone marrow will fully recover. In the future, she will need antibacterial and antifungal prophylaxis to prevent reinfection with her severe neutropenia Continue monitor CBC Aspiration Pneumonia E coli Bacteremia E coli UTI -Initially on Cefepime (03/15) then broadened to Cefepime and Flagyl (03/16). ID co nsulted, recommend Daptomycin and Meropenem pending final blood culture results. Daptomycin now discontinued. Meropenem switched to Cefepime and Flagyl. -TTE results noted, no vegetations seen -repeat blood cultures negative so far but patient remains febrile -History of bioprosthetic aortic valve and PPM -Case discussed with ID recommended To continue IV cefepime for 14 days for now ; then if patient continues to be neutropenic will need to continue antibiotic - Continue IV flagyl - Blood cx recollected due to fever -Will get a CXR - cardio plan to repeat te echo in am VDRF -extubated 03/18/22 Vfib Arrest Torsades -TTE shows EF 25-30% with possible takotsubo cardiomyopathy vs multivessel ischemic cardiomyopathy -Cardiology consulted, appreciate input. Amiodarone drip discontinued - Continue amiodarone 400mg daily and Metoprolol 12.5mg TID Septic Shock -Required pressor support now weaned off History of renal transplant -continue Prednisone 5mg daily. Cyclosporine currently on hold. Management per Nephrology History of Lymphoma -last had chemotherapy Jan 2022. Sees Dr Clemons of [facility] Oncology Insomnia -Patient adamant that her ambien be resumed DVT ppx SCD Code status Full code Admission and Anticipated Discharge Date Admission Date: March 14, 2022 Subjective Patient was seen and evaluated for follow-up Lying in bed with no acute distress Pt continues to be febrile She said that she feels tired today Denies any chest pain, palpitation, dizziness, shortness of breath. Review of Systems Review of Systems: All systems reviewed & are unremarkable except as noted in Subjective Physical Exam Physical Exam: General- No acute distress Head- atraumatic Eyes- PERRL, EOMI, ENT- oropharynx clear Neck- supple, no JVD Lungs- clear to auscultation Heart- regular rhythm; no murmur Abdomen- normal bowel sounds, soft, nontender Extremities- no calf tenderness Neuro- alert, oriented x 3; PERRL, EOMI; no facial palsy; no dysarthria Skin- warm & dry Results & Data Results & Data ([facility]) Vital Signs (Past 12 Hours) Vital Signs Temp Pulse Pulse Resp BP BP Pulse Ox 03/25/22 15:05 37.6 C H 03/25/22 14:53 105 H 03/25/22 14:26 38.4 C H 03/25/22 14:50 103 H 20 94/67 L 94 03/25/22 13:50 109 H 20 86/57 L 95 03/25/22 13:20 38.8 C H 106 H 20 82/61 L 97 03/25/22 13:05 38.4 C H 110 H 20 96/62 L 96 03/25/22 12:49 38.6 C H 113 H 20 90/67 L 96 03/25/22 12:25 39 C H 110 H 16 103/80 96 03/25/22 10:28 38.9 C H 03/25/22 08:00 38.1 C H 110 H 16 100/63 95 03/25/22 07:28 122 H 03/25/22 05:51 38.4 C H 03/25/22 05:17 39.1 C H O2 Del Method 03/25/22 15:05 03/25/22 14:53 03/25/22 14:26 03/25/22 14:50 03/25/22 13:50 03/25/22 13:20 03/25/22 13:05 03/25/22 12:49 03/25/22 12:25 Room Air 03/25/22 10:28 03/25/22 08:00 Room Air 03/25/22 07:28 03/25/22 05:51 03/25/22 05:17
[2022-03-25] MEDS: FIRST - Mouthwash BLM 119 ML PO SCH ×2 (16:06→21:41)
--- NOTE | 2022-03-25 18:03 | XRay Report ---
XR chest 1V portable CLINICAL HISTORY: fever TECHNIQUE: Single frontal radiograph of the chest was obtained. Comparison: Comparison is made to chest radiograph 03/19/2022 FINDINGS: Dual lead pacemaker is seen. Valvular prosthesis and median sternotomy wires are seen. Cardiomegaly i s noted. Airspace opacity is seen in the left upper lung, similar to prior exam. No evidence of pleur al effusion or pneumothorax. IMPRESSION: Redemonstration of pneumonia. ACT 112: Negative or not required by law. Electronically signed by: Layo Montesinos M.D. 03/25/2022 6:01 PM
[2022-03-25] MEDS: HYDROmorphone INJ 0.5 MG/0.5 ML SYR IV PRN (19:26)
[2022-03-25] MEDS: ZOLPIDEM TARTRATE 10 MG TAB PO PRN (21:41)
--- NOTE | 2022-03-26 00:59 | Communication Note ---
Date of Service: March 26, 2022 Recurrent fever as per RN. Cough not worsening, no diarrhea symptoms as per RN. AP Recurrent fever Ongoing cefepime Flagyl Rx for aspiration pneumonia/HAP, E. coli bacteremia Immunocompromised patient given chronic steroid Rx Follow recent blood CS result Revert to prior meropenem Rx (hold cefepime and Flagyl for now) Add vancomycin to regimen for MRSA coverage if still with fever recurrence for HAP given px immunocompromise Request AM provider to update [facility] ID
[2022-03-26] MEDS: MEROPENEM 500 MG in SYRINGE 0 ML IV SCH ×4 (01:23→20:20)
[2022-03-26] MEDS: oxyCODONE HCL IR 5 MG TAB (IMMEDIATE RELEASE) PO PRN ×4 (01:46→22:36)
[2022-03-26] MEDS: FIRST - Mouthwash BLM 119 ML PO SCH ×4 (04:16→22:38)
[2022-03-26] MEDS: busPIRone 5 MG TAB PO SCH ×3 (08:07→20:23)
[2022-03-26] MEDS: AMIODARONE 200 MG TAB PO SCH (08:07)
[2022-03-26] MEDS: predniSONE 5 MG TAB PO SCH (08:07)
[2022-03-26] MEDS: METOPROLOL SUCC 25MG EXT REL TAB PO SCH ×3 (08:07→20:24)
[2022-03-26] MEDS: PANTOprazole 40 MG TAB PO SCH ×2 (08:07→20:23)
[2022-03-26] MEDS: METAXALONE 800 MG TABLET PO SCH ×2 (08:07→20:23)
[2022-03-26] MEDS: MEMANTINE HCL 5 MG TAB PO SCH ×2 (08:08→16:59)
[2022-03-26] MEDS: CIMETIDINE 400 MG PO SCH ×2 (08:08→20:21)
[2022-03-26 11:20] LABS: Hematocrit (blood only) 21.7 % (34.1-44.9); Hemoglobin 7.6 g/dl (12.0-16.0); Mean Corpuscular Hemoglobin 27.2 pg (25.0-34.0); Mean Corpuscular Volume 77.8 fL (80.0-100.0); Platelet Count 2 K/uL (130-400); RDW Coefficient of Variation 17.2 % (11.5-14.5); RDW Standard Deviation 49.5 fL (36.4-46.3); Red Blood Count 2.79 M/uL (3.93-5.22); White Blood Count 0.41 K/ul (4.8-10.8)
[2022-03-26] MEDS: ACETAMINOPHEN 325 MG TAB PO PRN ×2 (11:25→20:28)
--- NOTE | 2022-03-26 11:34 | Cardiology Progress Note ---
Date of Service March 26, 2022 Assessment & Plan (1) Cardiac arrest: (2) Torsades de pointes: (3) Cardiomyopathy: (4) S/P AVR (aortic valve replacement): (5) Sepsis due to Gram negative bacteria: (6) Sepsis, Gram positive: (7) Pancytopenia: (8) Immunosuppressed status: (9) Kidney transplant recipient: Plan Patient is a critically ill 51-year-old female who presented with pancytopenia and sepsis. Initial presentation complicated by torsade with cardiac arrest No cardiac arrhythmias currently Underlying aortic valve replacement present Persistent fevers 1. Cardiac arrhythmias. Torsade and cardiac arrest on presentation continue beta-kristi with metoprolol succinate 12.5 mg 3 times daily for heart rate control. Pacemaker tracking atrium appropriately responding to acute illnesses and stress 2. Status post AVR 3. Catecholamine mediated cardiomyopathy with resolve. Echocardiogram demonstrates return to baseline LV systolic function. Admission and Anticipated Discharge Date Admission Date: March 14, 2022 Subjective Patient was seen examined, chart, indications, telemetry reviewed No acute card complaints. Heart rate still elevated though AV sequential pacing tracking atrial rates Echocardiogram performed demonstrates improved LV systolic function with resolve of prior apical wall motion normality Prosthetic valve not well visualized but no gross vegetations reviewed. Structurally intact Patient persistently febrile, repeat cultures from yesterday negative to date. Antibiotics expanded Profound pancytopenia remains present Review of Systems Review of Systems: All systems reviewed & are unremarkable except as noted in Subjective Physical Exam Constitutional: + ill appearing Eyes: PERRL, conjunctivae normal, anicteric sclerae ENMT: external ear and nose normal, oropharynx normal Neck: trachea midline, no thyromegaly Respiratory: + cough Auscultation: + rhonchi (Left base) Cardiovascular: Rate/Rhythm: regular rhythm and + tachycardic Heart Sounds: + murmur (Grade 2/6 systolic) Vessels: no JVD Extremities: no edema Results & Data ([facility]) Vital Signs (Past 12 Hours) Vital Signs Temp Pulse Pulse Resp BP Pulse Ox O2 Del Method 03/26/22 11:29 39.4 C H 107 H 20 92/68 L 94 Room Air 03/26/22 08:00 Room Air 03/26/22 08:00 98 H 03/26/22 07:27 38.7 C H 104 H 22 94/72 L 96 Room Air 03/26/22 04:11 37.8 C H 110 H 18 109/85 94 Room Air 03/26/22 00:45 39.4 C H
[2022-03-26 11:39] LABS: BUN Creatinine Ratio 24.8 (10-20); Calcium 8.2 mg/dl (8.5-10.1); Creatinine Clr Calc Pharmacy 48.8 ml/min; Est GFR (African American) 53.9 ml/min; Est GFR (Non-African American) 46.5 ml/min; Magnesium 1.8 mg/dl (1.7-2.4); Phosphorus 1.8 mg/dl (2.5-4.9); Potassium 3.4 mmol/L (3.5-5.1)
[2022-03-26] MEDS ORDERED: POTASSIUM PHOS 3 MMOL/1 ML INFUSION IV STA (13:26)
[2022-03-26] MEDS ORDERED: POTASSIUM PHOSPHATE 15 MMOL in SODIUM CHLORIDE 0.9% 250 ML IV ONE (14:00)
--- NOTE | 2022-03-26 16:20 | Hospitalist Progress Note ---
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 Hold Cyclosporine given her severe pancytopenia Plan Severe pancytopenia -recent bone marrow biopsy at [facility] [place] showed hypocellular marrow. Believed to be due to Covid 19 infection - s/p 2 unit platelet transfused today -S/p 7 units PRBC and 11 units platelet this admission -Case discussed with oncology Dr. Clemons that recommend to keep hemoglobin between 7-8 and platelet goal >10K Uncertain if her bone marrow will fully recover. In the future, she will need antibacterial and antifungal prophylaxis to prevent reinfection with her severe neutropenia Continue monitor CBC Aspiration Pneumonia E coli Bacteremia E coli UTI -Initially on Cefepime (03/15) then broadened to Cefepime and Flagyl (03/16). ID consulted, recommend Daptomycin and Meropenem pending final blood culture results. Daptomycin now discontinued. Meropenem switched to Cefepime and Flagyl. -TTE results noted, no vegetations seen -repeat blood cultures negative so far but patient remains febrile -History of bioprosthetic aortic valve and PPM -Case discussed with ID recommended To continue IV cefepime for 14 days for now ; then if patient continues to be neutropenic will need to continue antibiotic 03/26/22 Repeat blood cx no growth Continue to be febrile Repeat ECHO showed No gross vegetation. No significant bowel static aortic valve regurgitation CXR redemonstrates of pneumonia. Abx changed to meropenem and Vanco IV ( Will reach out to ID ) Electrolytes imbalance K 3.4 and phosp 1.8 Potassium and phosphate replaced Continue monitor electrolyte VDRF -extubated 03/18/22 Vfib Arrest Torsades -TTE shows EF 25-30% with possible takotsubo cardiomyopathy vs multivessel ischemic cardiomyopathy -Cardiology consulted, appreciate input. Amiodarone drip discontinued - Continue amiodarone 400mg daily and Metoprolol 12.5mg TID Septic Shock -Required pressor support now weaned off History of renal transplant -continue Prednisone 5mg daily. Cyclosporine currently on hold. Management per Nephrology History of Lymphoma -last had chemotherapy Jan 2022. Sees Dr Clemons of [facility] Oncology Insomnia -Patient adamant that her ambien be resumed DVT ppx SCD Code status Full code Disposition Discussed possible to try to transfer to [place] since they have ID and Hem/onc services, But pt refused Admission and Anticipated Discharge Date Admission Date: March 14, 2022 Subjective Patient was seen and evaluated for follow-up pancytopenia, febrile Lying in bed with no acute distress watching TV Pt continues to be febrile Discussed with her about transfer to [place], she would prefer not to transfer to stay at [facility] She said that she did not sleep well last night and feels tired Denies any chest pain, palpitation, dizziness, shortness of breath. Review of Systems Review of Systems: All systems reviewed & are unremarkable except as noted in Subjective Physical Exam Physical Exam: General- No acute distress Head- atraumatic Eyes- PERRL, EOMI, ENT- oropharynx clear Neck- supple, no JVD Lungs- clear to auscultation Heart- regular rhythm; no murmur Abdomen- normal bowel sounds, soft, nontender Extremities- no calf tenderness Neuro- alert, oriented x 3; PERRL, EOMI; no facial palsy; no dysarthria Skin- warm & dry Results & Data Results & Data ([facility]) Vital Signs (Past 12 Hours) Vital Signs Temp Pulse Pulse Resp BP BP Pulse Ox 03/26/22 15:59 36.8 C 94 H 18 102/72 96 03/26/22 15:22 36.8 C 97 H 18 89/67 L 96 03/26/22 15:23 36.8 C 97 H 18 89/67 L 96 03/26/22 15:41 38.3 C H 100 H 99/65 L 03/26/22 15:23 37.7 C H 97 H 20 89/67 L 03/26/22 14:17 38.0 C H 112 H 24 99/73 L 96 03/26/22 13:50 99/72 L 03/26/22 11:29 39.4 C H 107 H 20 92/68 L 94 03/26/22 08:00 03/26/22 08:00 98 H 03/26/22 07:27 38.7 C H 104 H 22 94/72 L 96 O2 Del Method O2 Flow Rate 03/26/22 15:59 Room Air 03/26/22 15:22 2 03/26/22 15:23 2 03/26/22 15:41 03/26/22 15:23 03/26/22 14:17 03/26/22 13:50 03/26/22 11:29 Room Air 03/26/22 08:00 Room Air 03/26/22 08:00 03/26/22 07:27 Room Air
[2022-03-26] MEDS: traMADol HCL 50 MG TABLET PO PRN (20:31)
[2022-03-26] MEDS ORDERED: VANCOMYCIN CONSULT ACTIVE PRN (23:20)
[2022-03-26] MEDS ORDERED: ACETAMINOPHEN 325 MG TAB PO STA (23:21)
[2022-03-26] MEDS ORDERED: VANCOMYCIN HCL 1,750 MG in SODIUM CHLORIDE 0.9% 500 ML IV ONE (23:30)
[2022-03-27] MEDS: HYDROmorphone INJ 0.5 MG/0.5 ML SYR IV PRN ×2 (00:35→21:21)
[2022-03-27] MEDS: MEROPENEM 500 MG in SYRINGE 0 ML IV SCH ×4 (02:23→20:19)
[2022-03-27] MEDS: FIRST - Mouthwash BLM 119 ML PO SCH ×3 (05:01→16:29)
[2022-03-27] MEDS: oxyCODONE HCL IR 5 MG TAB (IMMEDIATE RELEASE) PO PRN ×3 (05:43→20:33)
[2022-03-27] MEDS: ACETAMINOPHEN 325 MG TAB PO PRN ×2 (05:43→11:11)
[2022-03-27] MEDS: MEMANTINE HCL 5 MG TAB PO SCH ×2 (07:42→17:11)
[2022-03-27] MEDS ORDERED: VANCOMYCIN HCL 1,000 MG in SODIUM CHLORIDE 0.9% 250 ML IV SCH ×2 (08:00→20:00)
[2022-03-27] MEDS: METOPROLOL SUCC 25MG EXT REL TAB PO SCH ×3 (09:11→20:21)
[2022-03-27] MEDS: PANTOprazole 40 MG TAB PO SCH ×2 (09:11→20:35)
[2022-03-27] MEDS: predniSONE 5 MG TAB PO SCH (09:11)
[2022-03-27] MEDS: busPIRone 5 MG TAB PO SCH ×3 (09:12→20:34)
[2022-03-27] MEDS: AMIODARONE 200 MG TAB PO SCH (09:12)
[2022-03-27] MEDS: CIMETIDINE 400 MG PO SCH ×2 (09:12→20:22)
[2022-03-27] MEDS: METAXALONE 800 MG TABLET PO SCH ×2 (09:13→20:35)
[2022-03-27] MEDS: traMADol HCL 50 MG TABLET PO PRN (09:19)
[2022-03-27 09:30] LABS: Mean Platelet Volume 11.3 fL (9.4-12.3); Platelet Count 15 K/uL (130-400); White Blood Count 0.45 K/ul (4.8-10.8)
[2022-03-27 09:36] LABS: BUN Creatinine Ratio 24.2 (10-20); Creatinine Clr Calc Pharmacy 52.8 ml/min; Est GFR (Non-African American) 52.7 ml/min; Hematocrit (blood only) 19.5 % (34.1-44.9); Hemoglobin 6.9 g/dl (12.0-16.0); Mean Corpuscular Hemoglobin 27.5 pg (25.0-34.0); Mean Corpuscular Hgb Conc 35.4 g/dL (32.0-36.0); Mean Corpuscular Volume 77.7 fL (80.0-100.0); Phosphorus 2.1 mg/dl (2.5-4.9); Potassium 2.8 mmol/L (3.5-5.1); RDW Coefficient of Variation 16.9 % (11.5-14.5); Red Blood Count 2.51 M/uL (3.93-5.22)
[2022-03-27] MEDS ORDERED: SODIUM CHLORIDE 0.9% 250 ML IV PRN (09:52)
[2022-03-27] MEDS: POTASSIUM CHLORIDE CRTAB 20 MEQ TABCR PO SCH ×3 (11:09→20:23)
--- NOTE | 2022-03-27 11:09 | Pharmacy Report ---
Pharmacy PK ABX Note - Date of Service March 27, 2022 - Assessment and Plan Assessment 51 year old F previously receiving meropenem/vancomycin for treatment of bacteremia. Patient is pancytopenic with polymicrobial bacteremia on 03/15/22 cultures. Patient with cardiac arrest 03/16. Initially narrowed to cefepime/flagyl per ID from meropenem/daptomycin. Repeat blood cultures thus far have been negative, repeat cultures from 03/27 pending. Patient changed back to meropenem 03/26 am for recurrent fever, vancomycin added 03/26 PM. ID to be reconsulted. Plan Vancomycin * Loading dose: 1750 mg IV x 1 * Maintenance dose: 1000 mg IV every 18 hours * Regimen is predicted to achieve target AUC/ANA LUISA of 400-600 mg/L.hr * Random level 03/28 AM to further assist dosing Pharmacy will continue to follow and will adjust dose/frequency as necessary. Thank you. Pharmacy has transitioned to AUC monitoring for vancomycin. AUC/ANA LUISA is the preferred PK/PD target and is associated with decreased risk of nephrotoxicity compared to traditional trough targets.
[2022-03-27] MEDS ORDERED: POTASSIUM PHOS 3 MMOL/1 ML INFUSION IV STA (11:31)
[2022-03-27] MEDS: MAGNESIUM OXIDE 400 MG TAB PO SCH ×2 (11:45→20:34)
[2022-03-27] MEDS ORDERED: POTASSIUM PHOSPHATE 9 MMOL in SODIUM CHLORIDE 0.9% 250 ML IV ONE (11:45)
--- NOTE | 2022-03-27 12:48 | Cardiology Progress Note ---
Date of Service March 27, 2022 Assessment & Plan (1) Cardiac arrest: (2) Torsades de pointes: (3) Cardiomyopathy: (4) S/P AVR (aortic valve replacement): (5) Sepsis due to Gram negative bacteria: (6) Sepsis, Gram positive: (7) Pancytopenia: (8) Immunosuppressed status: (9) Kidney transplant recipient: Plan Patient is a critically ill 51-year-old female who presented with pancytopenia and sepsis. Initial presentation complicated by torsade with cardiac arrest No cardiac arrhythmias currently Underlying aortic valve replacement present Persistent fevers 1. Cardiac arrhythmias. Torsade and cardiac arrest on presentation continue beta-kristi with metoprolol succinate 12.5 mg 3 times daily for heart rate control. 2. Status post AVR 3. Catecholamine mediated cardiomyopathy, resolved. Echocardiogram demonstrates return to baseline LV systolic function. Plan: No indication for further cardiac intervention at this time Given the fact that the patient's internal temperature continues to rise despite broad-spectrum antibiotics and Tylenol recommend transferring to a tertiary care center for higher level of care with ongoing pancytopenia Admission and Anticipated Discharge Date Admission Date: March 14, 2022 Subjective Patient seen and examined. Chart reviewed. Telemetry reviewed. Discussed with hospitalist, patient remains febrile despite broadening antibiotics and Tylenol. Review of Systems Review of Systems: All systems reviewed & are unremarkable except as noted in HPI & below Physical Exam Physical Exam: General: Awake, alert and oriented x 3. No acute distress. HEENT: Normocephalic, atraumatic. Pupils equal, round and reactive to light and accommodation. Extraocular muscles are intact. Anicteric sclera. Moist mucous membranes. Neck: No JVD. No bruit. Cardiovascular: Regular. Positive S-4. Normal S-1 and S-2. No S-3. No murmurs or rubs. Pulmonary: Clear to auscultation B/L. No rales, rhonchi or wheezing Abdomen: Bowel sounds x 4, soft. No rebound, guarding or tenderness. No organomegaly. Extremities: No clubbing, cyanosis or edema. +2 pedal pulses bilaterally. Skin: Warm and dry. Results & Data ([facility]) Vital Signs (Past 12 Hours) Vital Signs Temp Pulse Pulse Resp BP Pulse Ox O2 Del Method 03/27/22 11:46 39.4 C H 03/27/22 11:05 39.2 C H 102 H 20 106/80 97 Room Air 03/27/22 07:30 Room Air 03/27/22 07:10 39.4 C H 112 H 17 117/75 93 Room Air 03/27/22 03:00 37.2 C 95 H 16 93/70 L 95 Room Air
[2022-03-27 16:59] LABS: BUN Creatinine Ratio 26.5 (10-20); Calcium 8.2 mg/dl (8.5-10.1); Creatinine Clr Calc Pharmacy 56.1 ml/min; Est GFR (African American) 65.6 ml/min; Est GFR (Non-African American) 56.6 ml/min; Magnesium 1.7 mg/dl (1.7-2.4); Potassium 5.1 mmol/L (3.5-5.1)
--- NOTE | 2022-03-27 18:11 | Hospitalist Progress Note ---
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 Hold Cyclosporine given her severe pancytopenia Plan Severe pancytopenia -recent bone marrow biopsy at [facility] [place] showed hypocellular marrow. Believed to be due to Covid 19 infection - s/p 2 unit platelet transfused today -S/p 7 units PRBC and 11 units platelet this admission -Case discussed with oncology Dr. Clemons that recommend to keep hemoglobin between 7-8 and platelet goal >10K Uncertain if her bone marrow will fully recover. In the future, she will need antibacterial and antifungal prophylaxis to prevent reinfection with her severe neutropenia Continue monitor CBC Aspiration Pneumonia E coli Bacteremia E coli UTI -Initially on Cefepime (03/15) then broadened to Cefepime and Flagyl (03/16). ID consulted, recommend Daptomycin and Meropenem pending final blood culture results. Daptomycin now discontinued. Meropenem switched to Cefepime and Flagyl. -TTE results noted, no vegetations seen -repeat blood cultures negative so far but patient remains febrile -History of bioprosthetic aortic valve and PPM -Case discussed with ID recommended To continue IV cefepime for 14 days for now ; then if patient continues to be neutropenic will need to continue antibiotic 03/26/22 Repeat blood cx no growth Continue to be febrile Repeat ECHO showed No gross vegetation. No significant bowel static aortic valve regurgitation CXR redemonstrates of pneumonia. Abx changed to meropenem and Vanco IV ( Will reach out to ID ) Electrolytes imbalance K 3.4 and phosp 1.8 Potassium and phosphate replaced Continue monitor electrolyte VDRF -extubated 03/18/22 Vfib Arrest Torsades -TTE shows EF 25-30% with possible takotsubo cardiomyopathy vs multivessel ischemic cardiomyopathy -Cardiology consulted, appreciate input. Amiodarone drip discontinued - Continue amiodarone 400mg daily and Metoprolol 12.5mg TID Septic Shock -Required pressor support now weaned off History of renal transplant -continue Prednisone 5mg daily. Cyclosporine currently on hold. Management per Nephrology History of Lymphoma -last had chemotherapy Jan 2022. Sees Dr Clemons of [facility] Oncology Insomnia -Patient adamant that her ambien be resumed DVT ppx SCD Code status Full code Disposition Discussed possible to try to transfer to [place] since they have ID and Hem/onc services, But pt refused Admission and Anticipated Discharge Date Admission Date: March 14, 2022 Subjective Pt was seen and examined for follow up of fever, pancytopenia Lying in bed with no acute distress Physical Exam Physical Exam: General- No acute distress Head- atraumatic Eyes- PERRL, EOMI, ENT- oropharynx clear Neck- supple, no JVD Lungs- clear to auscultation Heart- regular rhythm; no murmur Abdomen- normal bowel sounds, soft, nontender Extremities- no calf tenderness Neuro- alert, oriented x 3; PERRL, EOMI; no facial palsy; no dysarthria Skin- warm & dry Results & Data Results & Data ([facility]) Vital Signs (Past 12 Hours) Vital Signs Temp Pulse Pulse Pulse Resp BP BP 03/27/22 17:08 36.8 C 101 H 18 118/84 03/27/22 16:44 37.3 C 95 H 18 106/82 03/27/22 15:44 37.2 C 97 H 18 104/80 03/27/22 14:44 37.7 C H 94 H 18 107/78 03/27/22 15:24 37.7 C H 95 H 19 107/78 03/27/22 14:33 37.9 C H 99 H 18 90/70 L 03/27/22 14:14 37.6 C H 103 H 20 99/68 L 03/27/22 13:59 38.8 C H 105 H 20 96/73 L 03/27/22 13:42 38.9 C H 108 H 20 92/66 L 03/27/22 11:46 39.4 C H 03/27/22 11:05 39.2 C H 102 H 20 106/80 03/27/22 07:30 03/27/22 07:10 39.4 C H 112 H 17 117/75 Pulse Ox O2 Del Method 03/27/22 17:08 97 03/27/22 16:44 95 03/27/22 15:44 96 03/27/22 14:44 95 03/27/22 15:24 96 Room Air 03/27/22 14:33 96 03/27/22 14:14 96 03/27/22 13:59 95 03/27/22 13:42 94 03/27/22 11:46 03/27/22 11:05 97 Room Air 03/27/22 07:30 Room Air 03/27/22 07:10 93 Room Air
--- NOTE | 2022-03-27 20:08 | Discharge Summary ---
Date of Service March 27, 2022 Admission HPI Per Admitting Provider This is a 51-year-old female with significant PMHx of marginal zone lymphoma, cold agglutinin anemia, cardiac pacemaker in situ, aortic valve replacement, hx of renal transplant, HTN, HLD, chronic pain syndrome, who presents with worsening weakness. She reports increased lethargy over the past 3 days. Pt was recently admitted here at this facility [facility] 02/16/22 and was transferred from [facility] to [facility] on 02/22/22 and was there through the when she was discharged home. She went to a her PCP for post-discharge follow up today with PCP and found to have hgb of 5 again today and platelet count of 1 today. She admits to severe fatigue, not feeling herself. Reports her hgb at time of discharge from [facility] was above 7. While she was there she had multiple platelet transfusions. At the time of discharge her cyclosporine was held and she was told to restart this at half the dose once counts recovered. Her prednisone was increased to 5 mg daily. Pt does not feel well. She notes feeling lightheaded at times so was checking bps at home, her results indicated positive orthostatic pressure and this has gone on for about 3 days. She is taking her home medications as directed and is well versed in what is currently on hold and other adjustments after her last discharge. Pt has complaints of issues with swallowing. She was off cimetidine and replaced with famotidine, but reports that famotidine does not work for her. Pt is requesting something to eat. She admits to on and off nausea but not using anti-emetics due to prolonged QTC. Her mother, Mdaison, is present with her at bedside. Principal Diagnosis Febrile Neutropenia Aspiration Pneumonia E coli Bacteremia E coli UTI Torsades de pointes: Cardiac Arrest Pancytopenia: Autoimmune hemolytic anemia: Cold agglutinin disease: Marginal zone lymphoma: H/O aortic valve replacement: DESIREE (acute kidney injury): History of renal transplant: Discharge Exam General- No acute distress Head- atraumatic Eyes- PERRL, EOMI, ENT- oropharynx clear Neck- supple, no JVD Lungs- clear to auscultation Heart- regular rhythm; no murmur Abdomen- normal bowel sounds, soft, nontender Extremities- no calf tenderness Neuro- alert, oriented x 3; PERRL, EOMI; no facial palsy; no dysarthria Skin- warm & dry Discharge Data Allergies Allergy/AdvReac Type Severity Reaction Status Date / Time hydralazine Allergy Severe Hives Verified 03/10/22 14:14 morphine Allergy Severe Hives Verified 03/10/22 14:14 nitroglycerin AdvReac Severe Migraine Verified 03/10/22 14:14 valacyclovir AdvReac Severe Vomiting Verified 03/10/22 14:14 Consultations 03/14/22 15:07 ED Decision to Admit Stat 03/14/22 16:06 Consult Nephrology Routine 03/16/22 07:56 Consult Infectious Diseases Routine 03/16/22 11:05 Consult Cardiology Stat 03/16/22 11:46 Consult Physician Routine Ordered Studies 03/14/22 14:32 CT head/brain wo con Stat 03/16/22 07:58 CT chest diagnostic wo con Routine 03/16/22 08:50 sono, invasive monitoring [US point of care ultrasound] Urgent 03/17/22 06:56 CT Abd and Pelvis [CT abd pelvis oral con only] Routine Laboratory Results WBC 0.45 K/ul (4.8-10.8) L* 03/27/22 08:33 RBC 2.51 M/uL (3.93-5.22) L 03/27/22 08:33 Hgb 6.9 g/dl (12.0-16.0) L* 03/27/22 08:33 POC Hgb 9.2 g/dl (12.0-16.0) L 03/16/22 09:34 Hct 19.5 % (34.1-44.9) L* 03/27/22 08:33 POC Hct 27 % (37-47) L 03/16/22 09:34 MCV 77.7 fL (80.0-100.0) L 03/27/22 08:33 MCH 27.5 pg (25.0-34.0) 03/27/22 08:33 MCHC 35.4 g/dL (32.0-36.0) 03/27/22 08:33 RDW Std Deviation 47.0 fL (36.4-46.3) H 03/27/22 08:33 RDW Coeff of Delia 16.9 % (11.5-14.5) H 03/27/22 08:33 Plt Count 15 K/uL (130-400) L* D 03/27/22 08:33 MPV 11.3 fL (9.4-12.3) 03/27/22 08:33 Immature Gran % (Auto) Cancelled 03/27/22 08:33 Neut % (Auto) Cancelled 03/27/22 08:33 Lymph % (Auto) Cancelled 03/27/22 08:33 [place] % (Auto) Cancelled 03/27/22 08:33 Eos % (Auto) Cancelled 03/27/22 08:33 Baso % (Auto) Cancelled 03/27/22 08:33 Neut # (Auto) Cancelled 03/27/22 08:33 Lymph # (Auto) Cancelled 03/27/22 08:33 [place] # (Auto) Cancelled 03/27/22 08:33 Eos # (Auto) Cancelled 03/27/22 08:33 Baso # (Auto) Cancelled 03/27/22 08:33 Immature Gran # (Auto) Cancelled 03/27/22 08:33 Neutrophils % (Manual) Cancelled 03/27/22 08:33 Band Neutrophils % Cancelled 03/27/22 08:33 Lymphocytes % (Manual) Cancelled 03/27/22 08:33 Prolymphocyte % Cancelled 03/27/22 08:33 Reactive Lymphs % (Man) Cancelled 03/27/22 08:33 Monocytes % (Manual) Cancelled 03/27/22 08:33 Eosinophils % (Manual) Cancelled 03/27/22 08:33 Basophils % (Manual) Cancelled 03/27/22 08:33 Metamyelocytes % (Man) Cancelled 03/27/22 08:33 Myelocytes % (Man) Cancelled 03/27/22 08:33 Promyelocytes % (Man) Cancelled 03/27/22 08:33 Blast Cells % (Manual) Cancelled 03/27/22 08:33 Plasma Cell % (Manual) Cancelled 03/27/22 08:33 Other Cells % Cancelled 03/27/22 08:33 Nucleated RBC % Cancelled 03/27/22 08:33 Neutrophils # (Manual) Cancelled 03/27/22 08:33 Band Neutrophils # Cancelled 03/27/22 08:33 Total Absolute Neuts Cancelled 03/27/22 08:33 Lymphocytes # (Manual) Cancelled 03/27/22 08:33 Prolymphocyte # Cancelled 03/27/22 08:33 Reactive Lymphs # Cancelled 03/27/22 08:33 Total Abs Lymphocytes Cancelled 03/27/22 08:33 Monocytes # (Manual) Cancelled 03/27/22 08:33 Eosinophils # (Manual) Cancelled 03/27/22 08:33 Basophils # (Manual) Cancelled 03/27/22 08:33 Metamyelocytes # (Man) Cancelled 03/27/22 08:33 Myelocytes # (Manual) Cancelled 03/27/22 08:33 Promyelocytes # (Man) Cancelled 03/27/22 08:33 Blast Cells # (Man) Cancelled 03/27/22 08:33 Plasma Cell # (Manual) Cancelled 03/27/22 08:33 Other Cells # Cancelled 03/27/22 08:33 Nucleated RBCs # (Man) Cancelled 03/27/22 08:33 Hypersegmented Neuts Cancelled 03/27/22 08:33 Hyposegmented Neuts Cancelled 03/27/22 08:33 Hypogranular Neuts Cancelled 03/27/22 08:33 Large Granular Lymphs Cancelled 03/27/22 08:33 # Lrg Granular Lymphs Cancelled 03/27/22 08:33 Hairy Cells Cancelled 03/27/22 08:33 Smudge Cells Cancelled 03/27/22 08:33 Toxic Granulation Cancelled 03/27/22 08:33 Toxic Vacuolation Cancelled 03/27/22 08:33 Dohle Bodies Cancelled 03/27/22 08:33 Cat Rods Cancelled 03/27/22 08:33 Platelet Estimate Signific. Decreased (Normal) L 03/24/22 04:40 Hypogranular Platelets Cancelled 03/27/22 08:33 Clumped Platelets Cancelled 03/27/22 08:33 Giant Platelets Cancelled 03/27/22 08:33 Platelet Satelliting Cancelled 03/27/22 08:33 RBC Morphology Cancelled 03/27/22 08:33 Polychromasia Cancelled 03/27/22 08:33 Hypochromasia Cancelled 03/27/22 08:33 Poikilocytosis Cancelled 03/27/22 08:33 Basophilic Stippling Cancelled 03/27/22 08:33 Anisocytosis Cancelled 03/27/22 08:33 Microcytosis Cancelled 03/27/22 08:33 Macrocytosis Cancelled 03/27/22 08:33 Spherocytes Cancelled 03/27/22 08:33 Pappenheimer Bodies Cancelled 03/27/22 08:33 Sickle Cells Cancelled 03/27/22 08:33 Target Cells Cancelled 03/27/22 08:33 Tear Drop Cells Cancelled 03/27/22 08:33 Ovalocytes Cancelled 03/27/22 08:33 Stomatocytes Cancelled 03/27/22 08:33 Rios-Atgl[place] Bodies Cancelled 03/27/22 08:33 Echinocytes Cancelled 03/27/22 08:33 Acanthocytes (Spur) Cancelled 03/27/22 08:33 Rouleaux Cancelled 03/27/22 08:33 RBC Agglutinates Cancelled 03/27/22 08:33 Schistocytes Cancelled 03/27/22 08:33 Peripher Smr Path Cons Cancelled 03/18/22 07:31 Sezary Cell Cancelled 03/27/22 08:33 PT 14.9 Seconds (9.0-12.0) H 03/18/22 07:31 INR 1.4 (0.9-1.1) H 03/18/22 07:31 APTT 41.4 Seconds (21.0-31.0) H 03/18/22 07:31 PTT Ratio 1.5 03/18/22 07:31 Fibrinogen > 860 mg/dl (184-400) H 03/18/22 07:31 Sample Site R Radial 03/16/22 09:34 POC pH 7.58 (7.35-7.45) H* 03/16/22 09:34 POC pCO2 29 mmHg (35-46) L 03/16/22 09:34 POC pO2 60 mmHg (80-95) L 03/16/22 09:34 POC HCO3 27 yuliya/L (19-24) H 03/16/22 09:34 POC Total CO2 28 mmol/L (24-31) 03/16/22 09:34 POC Base Excess 5.0 yuliya/L (-9-1.8) H 03/16/22 09:34 ABG pH (Temp Correct) 7.543 (7.35-7.45) H* 03/16/22 09:34 ABG pCO2 (Temp Corrct 32 mmHg (35-46) L 03/16/22 09:34 POC ABG pO2 at Pt Temp 69 03/16/22 09:34 POC ABG O2 Sat 94.0 % (90-95) 03/16/22 09:34 Danilo Test Pass 03/16/22 09:34 O2 Delivery Device Ventilator 03/16/22 09:34 POC O2 Rate 20 03/16/22 09:34 Minute Ventilation 8.4 03/16/22 09:34 POC FiO2 100 % 03/16/22 09:34 Tidal Volume 420 03/16/22 09:34 PEEP 5 03/16/22 09:34 POC Sodium 136 mmol/L (135-144) 03/16/22 09:34 Sodium 133 mmol/L (136-145) L 03/27/22 15:45 POC Potassium 3.4 mmol/L (3.3-5.0) 03/16/22 09:34 Potassium 5.1 mmol/L (3.5-5.1) D 03/27/22 15:45 Chloride 108 mmol/L (98-107) H 03/27/22 15:45 Carbon Dioxide 17 mmol/L (21-32) L 03/27/22 15:45 Anion Gap 8 (3-11) 03/27/22 15:45 BUN 30 mg/dl (6-23) H 03/27/22 15:45 Creatinine 1.13 mg/dl (0.6-1.2) 03/27/22 15:45 Est Cr Clr Drug Dosing 56.1 ml/min 03/27/22 15:45 Est GFR ( Amer) 65.6 ml/min 03/27/22 15:45 Est GFR (Non-Af Amer) 56.6 ml/min 03/27/22 15:45 BUN/Creatinine Ratio 26.5 (10-20) H 03/27/22 15:45 Glucose 104 mg/dl (70-99(Fasting)) H 03/27/22 15:45 POC Glucose 95 mg/dl (70-99) 03/23/22 07:34 POC Glucose (other) 113 mg/dl (70-99) H 03/17/22 00:10 Lactate 0.8 mmol/L (0.4-2.0) 03/25/22 06:15 Calcium 8.2 mg/dl (8.5-10.1) L 03/27/22 15:45 Phosphorus 2.1 mg/dl (2.5-4.9) L 03/27/22 08:33 Magnesium 1.7 mg/dl (1.7-2.4) 03/27/22 15:45 Total Bilirubin 0.7 mg/dl (0.2-1.0) 03/17/22 04:26 AST 14 U/L (13-39) 03/17/22 04:26 ALT 41 U/L (7-52) 03/17/22 04:26 Alkaline Phosphatase 66 U/L (34-104) 03/17/22 04:26 Troponin I High Sens 198.8 pg/ml (0-14) H* D 03/16/22 22:31 Total Protein 5.3 gm/dl (6.0-8.3) L 03/17/22 04:26 Albumin 2.5 gm/dl (3.4-5.0) L 03/17/22 04:26 Globulin 2.8 gm/dl (2.5-4.0) 03/17/22 04:26 Albumin/Globulin Ratio 0.9 (0.9-2) 03/17/22 04:26 Procalcitonin 8.11 ng/ml (0-0.5) H 03/16/22 06:52 TSH 2.003 uIu/ml (0.300-4.500) 03/16/22 10:02 Urine Color Yellow 03/15/22 14:33 Urine Appearance Clear (Clear) 03/15/22 14:33 Urine pH 6.0 (4.5-7.5) 03/15/22 14:33 Ur Specific Phil Campbell 1.016 (1.000-1.030) 03/15/22 14:33 Urine Protein 2+ (Negative) H 03/15/22 14:33 Urine Glucose (UA) Negative (Negative) 03/15/22 14:33 Urine Ketones Negative (Negative) 03/15/22 14:33 Urine Blood 1+ (Negative) H 03/15/22 14:33 Urine Nitrite Negative (Negative) 03/15/22 14:33 Urine Bilirubin Negative (Negative) 03/15/22 14:33 Urine Urobilinogen Negative (Negative) 03/15/22 14:33 Ur Leukocyte Esterase Negative (Negative) 03/15/22 14:33 Urine WBC (Auto) 1-5 /hpf (0-5) 03/15/22 14:33 Urine RBC (Auto) 5-10 /hpf (0-4) H 03/15/22 14:33 U Hyaline Cast (Auto) 0 /lpf (0-5) 03/15/22 14:33 U Epithel Cells (Auto) 20-30 /lpf (0-5) H 03/15/22 14:33 Urine Bacteria (Auto) 4+ (Negative) H 03/15/22 14:33 Nasal Screen MRSA (PCR) Negative (Negative) 03/27/22 03:05 Stl C. diff Tox B Gene Negative Cdiff Gene (Neg) 03/19/22 06:10 SARS-CoV-2 (PCR) POSITIVE (Negative) A* 03/27/22 18:45 Enterobacterales (PCR) DETECTED (NotDetected) A 03/15/22 16:05 E. coli (PCR) DETECTED (NotDetected) A 03/15/22 16:05 SARS-CoV-2, RNA, NAAT POSITIVE (NEGATIVE) A* 03/14/22 16:03 mcr-1 Colistin Res Gene PCR Not Detected (NotDetected) 03/15/22 16:05 Streptococcus sp PCR DETECTED (NotDetected) A 03/15/22 16:05 blaIMP Car res Gene PCR Not Detected (NotDetected) 03/15/22 16:05 KPC-Carbap Res Gene PCR Not Detected (NotDetected) 03/15/22 16:05 blaNDM Car Res Gene PCR Not Detected (NotDetected) 03/15/22 16:05 OXA-48 Carbapenem Resis Gene (PCR) Not Detected (NotDetected) 03/15/22 16:05 blaVIM Car Res Gene PCR Not Detected (NotDetected) 03/15/22 16:05 CTX-M Gene Resistance (PCR) Not Detected (NotDetected) 03/15/22 16:05 Bld Cult ID Panel PCR See PCR Comment (NotDetected) 03/15/22 16:05 Blood Parasites ID Cancelled 03/27/22 08:33 Blood Type A Positive 03/25/22 10:51 Antibody Screen NEGATIVE 03/25/22 10:51 Crossmatch See Detail 03/25/22 10:[address] 03/14/22 14:32 CT OF THE HEAD WITHOUT CONTRAST CLINICAL HISTORY: Headache. COMPARISON STUDY: MRI of the brain June 21, [address] September 06, 2016. CT DOSE: 720.95 mGycm TECHNIQUE: Helical axial images of the head were obtained without IV contrast. Automated exposure control was utilized for the study. A dose lowering technique was utilized adhering to the principles of ALARA. FINDINGS: No acute intracranial hemorrhage, midline shift or mass effect is present. The ventricular system is unremarkable. The basal cisterns are patent. No extra-axial collections are present. There are no findings to suggest acute dural sinus thrombosis or acute territorial infarct. No significant calvarial abnormalities are present. Trace fluid within the right mastoid air cells is similar to prior CT and is stable to slightly decreased since prior MRI. There is mild ethmoid sinus mucosal thickening. Left maxillary sinus air-fluid level is partially imaged. This was shown on MRI of June 21, 2021. IMPRESSION: 1. No acute intracranial findings. 2. Paranasal sinus disease, as above. ACT 112: Negative or not required by law. Electronically signed by: Ariel Coburn M.D. 03/14/2022 2:[address] 03/16/22 07:58 CT chest diagnostic wo con CT DOSE: 701.14 mGy.cm CLINICAL HISTORY: 51 years-old Female with Bacteremia, Eval for source. Acute bacteremia TECHNIQUE: Multiaxial CT images of the chest were performed without contrast. A dose lowering technique was utilized adhering to the principles of ALARA. COMPARISON: CT abdomen and pelvis of same day, chest radiograph March 16, 2022 FINDINGS: Heterogeneity of the thyroid. Left subclavian pacer. Cardiomegaly without pericardial effusion. Postoperative changes of the ascending thoracic aorta with prosthetic aortic valve. Ascending thoracic aortic ectasia, 3.9 cm. Dilation of the main pulmonary artery measures up to approximately 4 cm. Mediastinal lymph nodes measure up to approximately 10 mm, likely reactive. Trace left pleural effusion. Intralobular septal thickening with intermixed groundglass densities. Mild scattered airspace opacities throughout the right lung. Dense segmental consolidation is noted throughout the left lung. Air bronchograms. Endotracheal tube distal tip terminates 1.1 cm superior to the mariela. Enteric tube courses into the stomach with distal tip outside the [id number]. Mild distention of the esophagus with intraluminal secretions. 3.9 cm cyst of the right hepatic lobe. Cystic lesions of the pancreas redemonstrated measuring up to 2.2 cm. No acute fracture or destructive bone lesion. IMPRESSION: 1. Extensive multifocal pneumonia, most pronounced within the left lung with trace left parapneumonic effusion. 2. Satisfactory positioning of the endotracheal and enteric tubes. 3. Cardiomegaly with possible superimposed pulmonary edema. 4. Additional findings as above. ACT 112: Negative or not required by law. Electronically signed by: Everett Ritchie M.D. 03/17/2022 1:33 PM KUB X-Ray 03/16/22 12:29 KUB HISTORY: Status post placement of an enteric tube OG tube placement COMPARISON: CT abdomen and pelvis 01/21/2020 FINDINGS: Cardiac silhouette is enlarged. Prior median sternotomy with cardiac valvular prosthesis. Left subclavian pacer. Asymmetric left lung opacity again noted. Enteric tube distal tip projects over the mid gastric body. The mid to lower abdomen is excluded from the [id number]. Air-filled loops of large and small bowel are noted. Pneumatosis or pneumoperitoneum identified. IMPRESSION: 1. Distal tip of enteric tube projects over the stomach. 2. Asymmetric left lung opacities redemonstrated. Please refer to the chest CT of same day for additional details. ACT 112: Negative or not required by law. The above report was generated using voice recognition software. It may contain grammatical, syntax or spelling errors. Electronically signed by: Everett Ritchie M.D. 03/16/2022 1:48 PM Abdomen/Pelvis CT 03/17/22 06:56 CT OF THE ABDOMEN AND PELVIS WITH ORAL CONTRAST CLINICAL HISTORY: Bacteremia. Evaluate for source. COMPARISON STUDY: CT of the abdomen and pelvis January 21, 2020. MRI of the abdomen July 29, 2021. KUB March 16, 2022. FINDINGS: Please note that the chest CT will be reported separately. The chest CT will be porencephaly. Multifocal pneumonia, most pronounced within the lingula and left lower lobe is better depicted on that exam. Cardiomegaly with partially visualized pacer leads. Median sternotomy wires and aortic valve are noted. No pneumatosis, free air or portal venous gas is present. Tip of nasogastric tube is within the distal stomach. Evaluation of the abdomen and pelvis is suboptimal on this unenhanced exam. A 3.9 cm water attenuation right hepatic lobe lesion is unchanged. This represents a cyst. There is no biliary ductal dilatation. Mild gallbladder distention is noted. There may be minimal layering hyperdense material within the gallbladder. There is no adjacent stranding. Innumerable cystic lesions within the pancreas are suboptimally assessed on this unenhanced exam but appear similar. There are pancreatic parenchymal calcifications. There is no peripancreatic stranding. Marked atrophy of the kidneys is noted. A water attenuation 3.9 cm left renal lesion is unchanged. This favors a cyst. Right lower quadrant renal allograft is noted. Water attenuation lesions within the allograft favor cysts although are suboptimally assessed on this exam. There is mild allograft hydronephrosis with stranding within the right renal sinus and perinephric soft tissues. This has slightly decreased since prior exam. Pike balloon and gas within the bladder present. There is no evidence for a bowel obstruction. Trace ascites within the pelvis is present. No fluid collection is identified to suggest an abscess. A 3.7 cm subcutaneous hyperdense focus within the left abdominal wall is noted with associated skin thickening. There is no associated fluid collection. There is no soft tissue gas. No acute fractures. No bowel obstruction. Wall thickening of the ascending colon and hepatic flexure is likely due to underdistention. IMPRESSION: 1. Multifocal pneumonia better depicted on the chest CT. 2. Apparent wall thickening of the ascending colon and hepatic flexure. This is likely due to underdistention. 3. Mild gallbladder distention however no adjacent infiltration. 4. Mild right lower quadrant renal allograft hydronephrosis with adjacent stranding. This has decreased when compared to prior CT although could be correlated with urinalysis. 5. No change in appearance of the pancreas with innumerable cystic lesions. Pancreatic parenchymal calcifications suggestive of chronic pancreatitis. 6. Subcutaneous stranding of the left abdominal wall with skin thickening. This favors a contusion. An infectious process could appear similar but is considered less likely. No fluid collection. ACT 112: Negative or not required by law. Electronically signed by: Ariel Coburn M.D. 03/17/2022 12:49 PM Chest X-Ray 03/25/22 17:00 XR chest 1V portable CLINICAL HISTORY: fever TECHNIQUE: Single frontal radiograph of the chest was obtained. Comparison: Comparison is made to chest radiograph 03/19/2022 FINDINGS: Dual lead pacemaker is seen. Valvular prosthesis and median sternotomy wires are seen. Cardiomegaly is noted. Airspace opacity is seen in the left upper lung, similar to prior exam. No evidence of pleural effusion or pneumothorax. IMPRESSION: Redemonstration of pneumonia. ACT 112: Negative or not required by law. Electronically signed by: Layo Montesinos M.D. 03/25/2022 6:01 PM Hospital Course (1) Pancytopenia: (2) Autoimmune hemolytic anemia: (3) Cold agglutinin disease: (4) Marginal zone lymphoma: (5) H/O aortic valve replacement: (6) DESIREE (acute kidney injury): (7) History of renal transplant: Severe pancytopenia -recent bone marrow biopsy at [facility] [place] showed hypocellular marrow. Believed to be due to Covid 19 infection - s/p 1 unit PRBC transfused today -S/p 8 units PRBC and 11 units platelet this admission -Case discussed with oncology Dr. Clemons that recommend to keep hemoglobin between 7-8 and platelet goal >10K Uncertain if her bone marrow will fully recover. In the future, she will need antibacterial and antifungal prophylaxis to prevent reinfection with her severe neutropenia Continue monitor CBC Aspiration Pneumonia E coli Bacteremia E coli UTI -Initially on Cefepime (03/15) then broadened to Cefepime and Flagyl (03/16). ID consulted, recommend Daptomycin and Meropenem pending final blood culture results. Daptomycin now discontinued. Meropenem switched to Cefepime and Flagyl. -TTE results noted, no vegetations seen -repeat blood cultures negative so far but patient remains febrile -History of bioprosthetic aortic valve and PPM -Case discussed with ID recommended To continue IV cefepime for 14 days for now ; then if patient continues to be neutropenic will need to continue antibiotic 03/27/22 Repeat blood cx no growth Continue to be febrile Covid 19 test continue to be positive (Positive Covid 19 on 02/16, 03/14 and 03/27) Repeat ECHO showed No gross vegetation. No significant bowel static aortic valve regurgitation CXR redemonstrates of pneumonia. Abx changed to meropenem and Vanco IV on 03/26/[address] Sanchez at [facility] [facility] about transferring since pt remains febrile and continue requiring transfusion dependent Electrolytes imbalance K 2.8 and phosp 2.1 Potassium and phosphate replaced Continue monitor electrolyte VDRF -extubated 03/18/22 Vfib Cardiac Arrest Torsades -TTE shows EF 25-30% with possible takotsubo cardiomyopathy vs multivessel ischemic cardiomyopathy -Cardiology consulted, appreciate input. Amiodarone drip discontinued - Continue amiodarone 400mg daily and Metoprolol 12.5mg TID - Case discussed with cardiology that agreed to transfer patient to a tertiary care facility Septic Shock -Required pressor support now weaned off History of renal transplant -continue Prednisone 5mg daily. Cyclosporine currently on hold. Management per Nephrology History of Lymphoma -last had chemotherapy Jan 2022. Sees Dr Clemons of [facility] Oncology Insomnia -Patient adamant that her ambien be resumed DVT ppx SCD Code status Full code Disposition Pt finally agreed to transfer to [facility] Case discussed with [facility] Dr. Sanchez that would discuss the case with Hematology/Oncology and Infectious disease at [facility] [place] [facility] before accepting the case Pt is accepting to transfer to [facility] Accepting Physician Dr. Sanchez Total Time Total Time Spent Total Time Spent (In Minutes): Febrile Neutropenia Aspiration Pneumonia E coli Bacteremia E coli UTI Pancytopenia: Autoimmune hemolytic anemia: Cold agglutinin disease: Marginal zone lymphoma: H/O aortic valve replacement: DESIREE (acute kidney injury): History of renal transplant: Discharge Plan Discharge Items Patient Disposition: Transfer Acute Care Hospital Reason For Visit: ANEMIC Discharge Diagnosis: Febrile Neutropenia Aspiration Pneumonia E coli Bacteremia E coli UTI Pancytopenia: Autoimmune hemolytic anemia: Cold agglutinin disease: Marginal zone lymphoma: H/O aortic valve replacement: DESIREE (acute kidney injury): History of renal transplant: Activity: Resume your previous activity Non-emergency contact: Primary Care Provider, Front Loader Residential Driver and Oncologist Call non-emergency contact if: you have any medication questions Follow-up/Referrals: Stuart Ravi MD [Primary Care Provider] - Diet: Heart Healthy Addtl Attending Provider Instructions: Transfer to [facility] [place] [facility] Accepted provider Dr. Sanchez Continue IV antibiotic with Meropenem Continue monitor CBC due to severe Pancytopenia Pending Studies at Discharge: Yes Studies:: Repeat blood culture Stand-Alone Forms: My [facility] Skilled Items Patient informed of condition?: Yes DNR: No Discharge Level of Care: Other Communicable Disease: No Discharge Prognosis: Other Lines: Peripheral IV Urinary Catheter: No Medications and DC Order Prescriptions: New amiodarone 200 mg Tablet 400 mg PO QAM 30 Days Qty: 60 0RF metoprolol succinate 25 mg Tablet Extended Release 24 Hr 12.5 mg PO TID 30 Days Qty: 45 0RF Continued ibrutinib 280 mg tablet 280 mg PO .ON HOLD Label Comments: on hold Rx Instructions: take at same time(s) each day; swallow whole with water; do not crush, chew, break, dissolve, cut, or open rosuvastatin [Crestor] 5 mg tablet 5 mg PO HS cimetidine 400 mg tablet 400 mg PO AMHS labetalol 300 mg tablet 300 mg PO Q8H Rx Instructions: morning,noon and before bedtime sodium bicarbonate 650 mg tablet 1,300 mg PO AMHS Rx Instructions: take before bedtime 2 tablet dose ramelteon 8 mg tablet 8 mg PO HS multivitamin Tablet 1 tab PO QAM folic acid 1 mg Tablet 1 mg PO QAM buspirone 5 mg tablet 5 mg PO Q8 pantoprazole [Protonix] 40 mg tablet,delayed release (DR/EC) 40 mg PO AMHS Rx Instructions: take before bedtime montelukast 10 mg tablet 10 mg PO QAM tramadol 100 mg Tablet Extended Release 24 Hr See Rx Instructions .ROUTE .COMPLEX Rx Instructions: 100 mg orally every morning and 200mg at bedtime polyethylene glycol 3350 [Miralax] 17 gram Powder In Packet 17 g PO DAILY mirtazapine 45 mg tablet 45 mg PO HS amlodipine 2.5 mg tablet 2.5 mg PO QPM zolpidem 10 mg tablet 10 mg PO HS PRN (Reason: Sleep) ascorbic acid (vitamin C) [Vitamin C] 1,000 mg Tablet 1 g PO Q6 allopurinol 300 mg tablet 300 mg PO .ON HOLD cyclosporine modified 50 mg capsule 50 mg PO .ON HOLD Rx Instructions: ampm ondansetron HCl 4 mg tablet 4 mg PO .ON HOLD PRN (Reason: Nausea) Rx Instructions: q12 hour metoclopramide HCl 5 mg tablet 5 mg PO .ON HOLD PRN (Reason: Nausea And Vomiting) Label Comments: on hold Rx Instructions: daily aspirin [Aspirin Childrens] 81 mg Tablet,Chewable 81 mg PO QAM metaxalone 800 mg tablet 800 mg PO Q8 memantine 5 mg tablet 5 mg PO BIDM Rx Instructions: take with morning and evening meals magnesium chloride 64 mg Tablet,Delayed Release (Dr/Ec) 64 mg PO QAM Aimovig Autoinjector 70 mg/mL auto-injector 70 mg subcut MONTHLY Rx Instructions: 70 mg subcut monthly amoxicillin 500 mg capsule 2,000 mg PO ONCE PRN (Reason: 1 hr prior to dental procedure) oxycodone 5 mg Tablet 5 mg PO Q6H fexofenadine 180 mg Tablet 180 mg PO DAILY triamcinolone acetonide 55 mcg Aerosol,[place] 2 spray INTRANASAL DAILY Rx Instructions: administer into each nostril zinc gluconate 50 mg Tablet 100 mg PO DAILY Probiotic Acidophilus Biobeads 12.9 mg (2 billion cell) Tablet,Delayed Release (Dr/Ec) 2 tab PO DAILY ketotifen fumarate 0.025 % (0.035 %) Drops 1 drp OPHTHALMIC (EYE) BID PRN (Reason: as direceted) Rx Instructions: administer at least 8 hours apart prednisone 5 mg tablet 5 mg PO QAM Discharge Orders: Discharge Order (Routine); Ordered 03/27/22 Ordered By: Flory Nobles Admission Data Admit Date/Time: 03/14/22 15:26 Attending Provider: Flory Nobles Admit Provider: Charles Brown Primary Care Provider: Stuart Ravi Other Providers: Charles Brown ; Lissy Ryder ; Carlitos Gomez ; Graham Barker ; Jan Meehan I. ; Christian Mckeon II ; Lyubov Taveras ; Stuart Escalante ; Matthew Washington ; Juan Cordero ; Jefferson Fernando ; Helen Reagan ; Gregory TenorioEstefani
[2022-03-28] MEDS ORDERED: VANCOMYCIN LEVEL ONE (04:44)
--- NOTE | 2022-04-03 10:35 | Coding Query ---
CODING QUERY To promote full compliance with coding requirements relating to patient care, provider participation is requested in all cases of medical billing coder uncertainty. Please assist us with the question(s) below: Coding Question(s): Pt positive for Covid on admission- subsequent test during this hospital stay positive. Please check below the phrase that describes the positive Covid test. Thanks for your help. Magdi Moser, [facility] Physician's Response(s): Patient has COVID-19 , present on admission. Patient does not have COVID-19 Cannot clinically correlate if patient has COVID-19 ____x__ Other: please document: ____no reinfection. she was tested positive in February Principal Diagnosis: "that condition established after study, to be chiefly responsible for occasioning the admission of the patient to the hospital for care." Co-Existing Principal Diagnosis: "when two or more diagnoses equally meet the criteria for principal diagnosis as determined by the circumstances of admission, diagnostic work up, and/or therapy provided, and the Alphabetic Index, Tabular List, or another coding guideline does not provide sequencing direction, any one of the diagnoses may be sequenced first." "When the physician has documented what appears to be a current diagnosis in the body of the record, but has not included the diagnosis in the final diagnostic statement, the physician should be asked whether the diagnosis should be added." ([facility] 2 QTR90. p3-4) ELE
--- NOTE | 2022-04-03 10:40 | Coding Query ---
SEPSIS To promote full compliance with coding requirements relating to patient care, physician participation is requested in all cases of remote inpatient coder uncertainty. Please assist us with the question(s) below: In responding to this query, please exercise your independent professional judgement. The fact that a question is asked does not imply that any particular answer is desired or expected. We appreciate your clarification on this issue. Throughout the medical record, you have clearly documented a localized infection and your patient has clinical evidence of a generalized sepsis or severe sepsis. The term urosepsis is a nonspecific entity and is coded as an UTI. If the patient has sepsis, severe sepsis, from an urinary source or some other source, please clarify in your response below. The medical record reflects the following clinical findings: Patient admitted with pancytopenia. Kidney transplant & complicated medical history. Cardiology consult note 03/27 documented gram negative Sepsis. DS documented Septic Shock. DS mentions bacteremia. Please check below the diagnosis that was treated during this Inpatient stay. Thanks for your help! PAUL Scott [facility] ____ ( )Bacteremia (Nonspecific laboratory finding of bacteria in the blood) Specify Organism ( ) Present on Admission ( ) Not present on admission ( ) Unable to clinically determine ( ) Septicemia (Systemic disease associated with the presence of pathogenic microorganisms in the blood): Specify Organism ( ) Present on Admission ( ) Not present on admission ( ) Unable to clinically determine ( ) Sepsis Specify Organism Specify Associated Condition/Diagnosis ( ) Present on Admission ( ) Not present on admission ( ) Unable to clinically determine ( ) Severe Sepsis (Sepsis associated with acute organ dysfunction) Specify Organism Specify Associated Condition/Diagnosis ( ) Present on Admission ( ) Not present on admission ( ) Unable to clinically determine ( x) Septic Shock (Severe sepsis with acute circulatory failure, unexplained by other causes) ( ) Present on Admission ( ) Not present on admission (x ) Unable to clinically determine ( ) Other, patient has: MTDD
== END 2022-03-27 22:26 | disposition short-term general hospital (02) | DRG 871 ==
LOC: ED 13:50 → SUATTDRO 15:26 → EDINP 15:26 → 2S 03-15 03:03 → 1E 03-16 08:52 → 2E 03-24 15:03